=== PATIENT | male | born 1980 | race Caucasian/White ===

== ENCOUNTER 2022-09-14 15:30 | Emergency (ER) | payer MEDICAID, SELFPAY ==
[2022-09-14] VITALS (38 sets, daily range): BP systolic 207–235; BP diastolic 97–118; PULSE 80–92; RESP 20–24; TEMP 36.9; O2SAT 92–100; BMI 34.4
--- NOTE | 2022-09-14 16:17 | ED.GENADULT ---
HPI - General Adult General Chief complaint: Shortness of Breath/Dyspnea <Consuelo Yates MD - Last Filed: 09/17/22 01:19> Stated complaint: Cough, swelling in both legs <Consuelo Yates MD - Last Filed: 09/17/22 01:19> Time Seen by Provider: 09/14/22 16:01 <Consuelo Yates MD - Last Filed: 09/17/22 01:19> Source: patient and family <Consuelo Yates MD - Last Filed: 09/17/22 01:19> Mode of arrival: ambulatory <Consuelo Yates MD - Last Filed: 09/17/22 01:19> History of Present Illness HPI narrative: 41-year-old male with a notable history of diabetes, hypertension and chronic kidney disease presents to the emergency department with a 2 week history of cough, couple month history of leg swelling. Legs have become gradually more swollen since his medications were adjusted at [facility] a couple of months ago. He admits that he has not been taking his medications the last few days because he feels like it has a sensation of chest squeezing. He does not know it is medications are but family can take pictures of his bottles at home and will get back to me very soon with this. The cough is nonproductive. He has vomiting every morning but on specific questioning it sounds like this is nonbilious, stomach acid in mucus. He does not endorse a sensation of acid reflux. He still eating and drinking normally and is not losing weight. He does not endorse any abdominal pain. No fever. Cough is rather constant. It has not improved since he stopped taking his blood pressure medications. He does not endorse any history of heart failure but denies any prior history of stress tests. He had a chest x-ray performed per his report a couple of days ago in our system which was apparently normal. His [facility] provider referred him to the ED for further workup. No history of DVT or PE. No fevers. No falls, trauma or injury. Symptoms have been gradual onset. He has not been monitoring his blood sugars well recently and admits that he has had increased stress due to his sister being diagnosed with stage IV cancer. No coronary artery disease history but he does admit to some chest tightness when he takes his medications but it does not sound as though it is completely exertional. He has not tried any other measures to help with his symptoms. Past medical history notable for diabetes, hypertension. Denies any prior surgeries. He takes several prescription medications that are prescribed to him but has not been using these for at least the last 5 days and from what I can gather was rather sporadic when he was taking them. He has no allergies. He is a nonsmoker. ROS is notable for the respiratory, chest and extremity symptoms as described above, otherwise denies times 12 systems. <Consuelo Yates MD - Last Filed: 09/17/22 01:19> Related Data Home medications: Home Medications Medication Instructions Recorded Confirmed clonidine HCl 0.1 mg tablet 0.1 mg PO DAILY 09/14/22 09/14/22 diltiazem HCl 240 mg 240 mg PO DAILY 09/14/22 09/14/22 capsule,extended release 24 hr hydralazine 50 mg tablet 150 mg PO BID 09/14/22 09/14/22 losartan 100 mg tablet 100 mg PO DAILY 09/14/22 09/14/22 metformin 500 mg tablet,extended 500 mg PO BID 09/14/22 09/14/22 release 24 hr <Consuelo Yates MD - Last Filed: 09/17/22 01:19> Allergies/adverse reactions: Allergies Allergy/AdvReac Type Severity Reaction Status Date / Time Latex, Natural Rubber Allergy Verified 09/15/22 10:25 tramadol [From Ultram] Allergy Verified 09/15/22 10:25 <Consuelo Yates MD - Last Filed: 09/17/22 01:19> [facility] Medical History: Medical History (Updated 09/14/22 @ 17:37 by Consuelo Yates MD) Chronic kidney disease ?N18.9 - Chronic kidney disease, unspecified (ICD-10) Hypertension ?I10 - Essential (primary) hypertension (ICD-10) Type 2 diabetes mellitus ?E11.9 - Type 2 diabetes mellitus without complications (ICD-10) <Consuelo Yates MD - Last Filed: 09/17/22 01:19> Social History: Social History Smoking Status: Never smoker How often do you have a drink containing alcohol: never AUDIT-C Alcohol total score: 0 Non-prescribed substance use: denies use <Consuelo Yates MD - Last Filed: 09/17/22 01:19> Exam Const: Vital Signs, click to edit/add: Vital Signs - 24 hr 09/14/22 15:37 09/14/22 16:53 09/14/22 17:00 Temperature 98.4 F Pulse Rate 87 86 Pulse Rate [Pulse Oximeter] 92 Respiratory Rate 20 Blood Pressure Blood Pressure [Ri ght Upper Arm] 235/108 H Pulse Oximetry 98 95 97 09/14/22 17:03 09/14/22 17:04 09/14/22 17:15 Temperature Pulse Rate 84 85 83 Pulse Rate [Pulse Oximeter] Respiratory Rate Blood Pressure 221/117 H Blood Pressure [Ri ght Upper Arm] Pulse Oximetry 97 94 92 09/14/22 17:30 09/14/22 18:08 09/14/22 18:15 Temperature Pulse Rate 89 86 86 Pulse Rate [Pulse Oximeter] Respiratory Rate Blood Pressure Blood Pressure [Ri ght Upper Arm] Pulse Oximetry 94 94 95 09/14/22 18:30 09/14/22 18:45 09/14/22 18:48 Temperature Pulse Rate 85 85 86 Pulse Rate [Pulse Oximeter] Respiratory Rate Blood Pressure 210/103 H Blood Pressure [Ri ght Upper Arm] Pulse Oximetry 98 98 93 09/14/22 19:00 09/14/22 19:02 09/14/22 19:03 Temperature Pulse Rate 89 89 86 Pulse Rate [Pulse Oximeter] Respiratory Rate Blood Pressure 224/118 H Blood Pressure [Ri ght Upper Arm] Pulse Oximetry 96 97 97 09/14/22 19:15 09/14/22 19:30 09/14/22 19:45 Temperature Pulse Rate 87 83 87 Pulse Rate [Pulse Oximeter] Respiratory Rate Blood Pressure Blood Pressure [Ri ght Upper Arm] Pulse Oximetry 95 97 97 09/14/22 20:00 09/14/22 20:02 09/14/22 20:15 Temperature Pulse Rate 89 87 87 Pulse Rate [Pulse Oximeter] Respiratory Rate Blood Pressure 219/113 H Blood Pressure [Ri ght Upper Arm] Pulse Oximetry 96 96 94 09/14/22 20:30 09/14/22 21:04 09/14/22 21:10 Temperature Pulse Rate 89 85 83 Pulse Rate [Pulse Oximeter] Respiratory Rate Blood Pressure 221/101 H Blood Pressure [Ri ght Upper Arm] Pulse Oximetry 98 94 93 09/14/22 21:15 09/14/22 21:30 09/14/22 21:40 Temperature Pulse Rate 87 85 85 Pulse Rate [Pulse Oximeter] Respiratory Rate Blood Pressure 208/97 H Blood Pressure [Ri ght Upper Arm] Pulse Oximetry 95 100 97 09/14/22 21:42 09/14/22 21:45 09/14/22 21:45 Temperature Pulse Rate 90 86 Pulse Rate [Pulse Oximeter] Respiratory Rate 24 Blood Pressure Blood Pressure [Ri ght Upper Arm] Pulse Oximetry 97 96 09/14/22 22:00 09/14/22 22:12 09/14/22 22:15 Temperature Pulse Rate 86 90 88 Pulse Rate [Pulse Oximeter] Respiratory Rate Blood Pressure 209/105 H Blood Pressure [Ri ght Upper Arm] Pulse Oximetry 98 94 97 09/14/22 22:30 09/14/22 22:45 09/14/22 23:00 Temperature Pulse Rate 82 82 82 Pulse Rate [Pulse Oximeter] Respiratory Rate Blood Pressure Blood Pressure [Ri ght Upper Arm] Pulse Oximetry 95 92 94 09/14/22 23:02 09/14/22 23:03 09/14/22 23:15 Temperature Pulse Rate 82 82 80 Pulse Rate [Pulse Oximeter] Respiratory Rate Blood Pressure 207/105 H Blood Pressure [Ri ght Upper Arm] Pulse Oximetry 93 94 94 09/15/22 00:02 09/15/22 00:02 09/15/22 00:02 Temperature Pulse Rate 80 80 80 Pulse Rate [Pulse Oximeter] Respiratory Rate 18 Blood Pressure 179/98 H 179/98 H 179/98 H Blood Pressure [Ri ght Upper Arm] Pulse Oximetry 92 92 92 09/15/22 00:15 09/15/22 01:02 09/15/22 02:02 Temperature Pulse Rate 80 76 80 Pulse Rate [Pulse Oximeter] Respiratory Rate Blood Pressure 191/99 H 204/102 H Blood Pressure [Ri ght Upper Arm] Pulse Oximetry 97 94 94 09/15/22 03:02 09/15/22 04:02 09/15/22 05:02 Temperature Pulse Rate 77 78 76 Pulse Rate [Pulse Oximeter] Respiratory Rate 20 Blood Pressure 199/112 H 202/106 H 212/119 H Blood Pressure [Ri ght Upper Arm] Pulse Oximetry 96 99 98 09/15/22 05:19 09/15/22 06:02 09/15/22 06:03 Temperature 98.1 F Pulse Rate 84 77 Pulse Rate [Pulse Oximeter] Respiratory Rate 20 Blood Pressure 198/108 H Blood Pressure [Ri ght Upper Arm] Pulse Oximetry 99 99 09/15/22 06:30 09/15/22 07:00 09/15/22 07:02 Temperature Pulse Rate 78 79 76 Pulse Rate [Pulse Oximeter] Respiratory Rate Blood Pressure 215/111 H Blood Pressure [Ri ght Upper Arm] Pulse Oximetry 97 100 99 09/15/22 07:30 09/15/22 08:00 09/15/22 08:02 Temperature Pulse Rate 74 76 77 Pulse Rate [Pulse Oximeter] Respiratory Rate Blood Pressure 202/108 H Blood Pressure [Ri ght Upper Arm] Pulse Oximetry 97 98 99 09/15/22 08:30 09/15/22 09:00 09/15/22 09:02 Temperature Pulse Rate 80 86 84 Pulse Rate [Pulse Oximeter] Respiratory Rate Blood Pressure 204/99 H Blood Pressure [Ri ght Upper Arm] Pulse Oximetry 98 97 98 09/15/22 09:30 09/15/22 09:35 Temperature 98.1 F Pulse Rate 87 Pulse Rate [Pulse Oximeter] Respiratory Rate Blood Pressure Blood Pressure [Ri ght Upper Arm] Pulse Oximetry 97 <Consuelo Yates MD - Last Filed: 09/17/22 01:19> Vital Signs, click to edit/add: Vital Signs - 24 hr 09/14/22 15:37 09/14/22 16:53 09/14/22 17:00 Temperature 98.4 F Pulse Rate 87 86 Pulse Rate [Pulse Oximeter] 92 Respiratory Rate 20 Blood Pressure Blood Pressure [Ri ght Upper Arm] 235/108 H Pulse Oximetry 98 95 97 09/14/22 17:03 09/14/22 17:04 09/14/22 17:15 Temperature Pulse Rate 84 85 83 Pulse Rate [Pulse Oximeter] Respiratory Rate Blood Pressure 221/117 H Blood Pressure [Ri ght Upper Arm] Pulse Oximetry 97 94 92 09/14/22 17:30 09/14/22 18:08 09/14/22 18:15 Temperature Pulse Rate 89 86 86 Pulse Rate [Pulse Oximeter] Respiratory Rate Blood Pressure Blood Pressure [Ri ght Upper Arm] Pulse Oximetry 94 94 95 09/14/22 18:30 09/14/22 18:45 09/14/22 18:48 Temperature Pulse Rate 85 85 86 Pulse Rate [Pulse Oximeter] Respiratory Rate Blood Pressure 210/103 H Blood Pressure [Ri ght Upper Arm] Pulse Oximetry 98 98 93 09/14/22 19:00 09/14/22 19:02 09/14/22 19:03 Temperature Pulse Rate 89 89 86 Pulse Rate [Pulse Oximeter] Respiratory Rate Blood Pressure 224/118 H Blood Pressure [Ri ght Upper Arm] Pulse Oximetry 96 97 97 09/14/22 19:15 09/14/22 19:30 09/14/22 19:45 Temperature Pulse Rate 87 83 87 Pulse Rate [Pulse Oximeter] Respiratory Rate Blood Pressure Blood Pressure [Ri ght Upper Arm] Pulse Oximetry 95 97 97 09/14/22 20:00 09/14/22 20:02 09/14/22 20:15 Temperature Pulse Rate 89 87 87 Pulse Rate [Pulse Oximeter] Respiratory Rate Blood Pressure 219/113 H Blood Pressure [Ri ght Upper Arm] Pulse Oximetry 96 96 94 09/14/22 20:30 09/14/22 21:04 09/14/22 21:10 Temperature Pulse Rate 89 85 83 Pulse Rate [Pulse Oximeter] Respiratory Rate Blood Pressure 221/101 H Blood Pressure [Ri ght Upper Arm] Pulse Oximetry 98 94 93 09/14/22 21:15 09/14/22 21:30 09/14/22 21:40 Temperature Pulse Rate 87 85 85 Pulse Rate [Pulse Oximeter] Respiratory Rate Blood Pressure 208/97 H Blood Pressure [Ri ght Upper Arm] Pulse Oximetry 95 100 97 09/14/22 21:42 09/14/22 21:45 09/14/22 21:45 Temperature Pulse Rate 90 86 Pulse Rate [Pulse Oximeter] Respiratory Rate 24 Blood Pressure Blood Pressure [Ri ght Upper Arm] Pulse Oximetry 97 96 09/14/22 22:00 09/14/22 22:12 09/14/22 22:15 Temperature Pulse Rate 86 90 88 Pulse Rate [Pulse Oximeter] Respiratory Rate Blood Pressure 209/105 H Blood Pressure [Ri ght Upper Arm] Pulse Oximetry 98 94 97 09/14/22 22:30 09/14/22 22:45 09/14/22 23:00 Temperature Pulse Rate 82 82 82 Pulse Rate [Pulse Oximeter] Respiratory Rate Blood Pressure Blood Pressure [Ri ght Upper Arm] Pulse Oximetry 95 92 94 09/14/22 23:02 09/14/22 23:03 09/14/22 23:15 Temperature Pulse Rate 82 82 80 Pulse Rate [Pulse Oximeter] Respiratory Rate Blood Pressure 207/105 H Blood Pressure [Ri ght Upper Arm] Pulse Oximetry 93 94 94 09/15/22 00:02 09/15/22 00:02 09/15/22 00:02 Temperature Pulse Rate 80 80 80 Pulse Rate [Pulse Oximeter] Respiratory Rate 18 Blood Pressure 179/98 H 179/98 H 179/98 H Blood Pressure [Ri ght Upper Arm] Pulse Oximetry 92 92 92 09/15/22 00:15 09/15/22 01:02 09/15/22 02:02 Temperature Pulse Rate 80 76 80 Pulse Rate [Pulse Oximeter] Respiratory Rate Blood Pressure 191/99 H 204/102 H Blood Pressure [Ri ght Upper Arm] Pulse Oximetry 97 94 94 09/15/22 03:02 09/15/22 04:02 09/15/22 05:02 Temperature Pulse Rate 77 78 76 Pulse Rate [Pulse Oximeter] Respiratory Rate 20 Blood Pressure 199/112 H 202/106 H 212/119 H Blood Pressure [Ri ght Upper Arm] Pulse Oximetry 96 99 98 09/15/22 05:19 09/15/22 06:02 09/15/22 06:03 Temperature 98.1 F Pulse Rate 84 77 Pulse Rate [Pulse Oximeter] Respiratory Rate 20 Blood Pressure 198/108 H Blood Pressure [Ri ght Upper Arm] Pulse Oximetry 99 99 09/15/22 06:30 09/15/22 07:00 09/15/22 07:02 Temperature Pulse Rate 78 79 76 Pulse Rate [Pulse Oximeter] Respiratory Rate Blood Pressure 215/111 H Blood Pressure [Ri ght Upper Arm] Pulse Oximetry 97 100 99 09/15/22 07:30 09/15/22 08:00 09/15/22 08:02 Temperature Pulse Rate 74 76 77 Pulse Rate [Pulse Oximeter] Respiratory Rate Blood Pressure 202/108 H Blood Pressure [Ri ght Upper Arm] Pulse Oximetry 97 98 99 09/15/22 08:30 09/15/22 09:00 09/15/22 09:02 Temperature Pulse Rate 80 86 84 Pulse Rate [Pulse Oximeter] Respiratory Rate Blood Pressure 204/99 H Blood Pressure [Ri ght Upper Arm] Pulse Oximetry 98 97 98 09/15/22 09:30 09/15/22 09:35 Temperature 98.1 F Pulse Rate 87 Pulse Rate [Pulse Oximeter] Respiratory Rate Blood Pressure Blood Pressure [Ri ght Upper Arm] Pulse Oximetry 97 <John Cameron MD - Last Filed: 09/15/22 11:40> Documenting provider has reviewed patient's vital signs: yes <Consuelo Yates MD - Last Filed: 09/17/22 01:19> Common normals: no apparent distress <Consuelo Yates MD - Last Filed: 09/17/22 01:19> General appearance: cooperative, comfortable and well kempt <Consuelo Yates MD - Last Filed: 09/17/22 01:19> Other: Good historian. Friendly and cooperative. <Consuelo Yates MD - Last Filed: 09/17/22 01:19> HENMT: Common normals: normocephalic and head/scalp atraumatic <Consuelo Yates MD - Last Filed: 09/17/22 01:19> Head and scalp: normocephalic and atraumatic <Consuelo Yates MD - Last Filed: 09/17/22 01:19> Face and sinus: normal facial exam <Consuelo Yates MD - Last Filed: 09/17/22 01:19> Mouth: oral and palatal mucosa normal <Consuelo Yates MD - Last Filed: 09/17/22 01:19> Throat: posterior oropharynx normal <Consuelo Yates MD - Last Filed: 09/17/22 01:19> Eye: Common normals: conjunctivae normal <MD Beatriz Yee Last Filed: 09/17/22 01:19> General eye: normal appearance of both eyes <Consuelo Yates MD - Last Filed: 09/17/22 01:19> Conjunctiva: conjunctiva(e) normal <MD Beatriz Yee Last Filed: 09/17/22 01:19> Neck & C-Spine: Common normals: full ROM and no lymphadenopathy <MD Beatriz Yee Last Filed: 09/17/22 01:19> Chest: Common normals: inspection of chest normal <MD Beatriz Yee Last Filed: 09/17/22 01:19> Resp: Common normals: normal respiratory effort and no use of accessory muscles <MD Beatriz Yee Last Filed: 09/17/22 01:19> Effort & inspection: able to speak in complete sentences <MD Beatriz Yee Last Filed: 09/17/22 01:19> Other: Slight coarse bilateral crackles, left greater than right. Normal respiratory effort, good air entry throughout. No wheeze. <MD Beatriz Yee Last Filed: 09/17/22 01:19> Cardio: Common normals: regular rate, regular rhythm, S1 normal heart sound, S2 normal heart sound and no murmurs <MD Beatriz Yee Last Filed: 09/17/22 01:19> Rate: regular rate <MD Beatriz Yee Last Filed: 09/17/22 01:19> Rhythm: regular rhythm <MD Beatriz eYe Last Filed: 09/17/22 01:19> Heart sounds: S1 normal and S2 normal <MD Beatriz Yee Last Filed: 09/17/22 01:19> GI: Common normals: Normal to inspection, nondistended, normoactive bowel sounds present, soft to palpation, no hepatosplenomegaly and no masses <MD Beatriz Yee Last Filed: 09/17/22 01:19> Palpation: soft and no hepatosplenomegaly <MD Beatriz Yee Last Filed: 09/17/22 01:19> Other: Mild tenderness to right upper quadrant only. No rebound tenderness or guarding. <MD Beatriz Yee Last Filed: 09/17/22 01:19> Extremity: Other: 2+ edema to upper tibia. <Consuelo Yates MD - Last Filed: 09/17/22 01:19> Neuro: Speech: speech normal <Consuelo Yates MD - Last Filed: 09/17/22 01:19> Gait (neuro): normal gait <Consuelo Yates MD - Last Filed: 09/17/22 01:19> Motor exam: strength 5/5 throughout and no movement abnormalities noted <Consuelo Yates MD - Last Filed: 09/17/22 01:19> Psych: Appearance: well kempt <Consuelo Yates MD - Last Filed: 09/17/22 01:19> Attitude: engaged <Consuelo Yates MD - Last Filed: 09/17/22 01:19> Activity/motor behavior: appropriate eye contact <Consuelo Yates MD - Last Filed: 09/17/22 01:19> Mood and affect: euthymic mood <Consuelo Yates MD - Last Filed: 09/17/22 01:19> Skin: Common normals: no rashes or lesions noted <Consuelo Yates MD - Last Filed: 09/17/22 01:19> General skin exam: no rashes or lesions noted <Consuelo Yates MD - Last Filed: 09/17/22 01:19> Course Course Hospital Course: Prior x-ray reviewed. There is some bronchial thickening suspicious for bronchitis type infection. With his history of leg edema, markedly elevated blood pressure and cardiac history, I am concerned for potential for heart failure, coronary artery disease, DVT, fluid overload from chronic kidney disease, among other infectious and noninfectious etiologies. Recommended COVID swab, basic labs. EKG, cardiac workup. Will consider repeating chest x-ray if the cardiac workup is suspicious. I think that the vomiting is acid reflux. If I do not find any other discrepancies in his blood work, will recommend an acid antique furniture reproducer. He will need a new regimen for hypertension control that does not cause side effects as well. Based on his stress and anxiety, he would probably be a good candidate for a beta-sung. I am awaiting his medication list. I suspect that amlodipine in high doses may have been the tipping point for him today. <Consuelo Yates MD - Last Filed: 09/17/22 01:19> Reevaluation(s) Time of Reevaluation #1: 17:35 <Consuelo Yates MD - Last Filed: 09/17/22 01:19> Reevaluation #1: Medication list reviewed. He is also prescribed furosemide which he has not been taking either. Found to be in significant renal failure, thankfully potassium is okay. Reports that he has not had labs performed in several months. I do think that his hypertensive urgency, dyspnea, edema are all related to his kidney failure. I think he needs urgent nephrology evaluation. I have made a call to the [facility] system to see if he can be placed. Will obtain renal ultrasound and urinalysis in the interim. Will start with Lasix. <Consuelo Yates MD - Last Filed: 09/17/22 01:19> Time of Reevaluation #2: 19:38 <Consuelo Yates MD - Last Filed: 09/17/22 01:19> Reevaluation #2: I was able to speak with Dr. Gunderson from [facility]. He agrees that patient likely needs dialysis and transfer. We are about 18th on the wait list at this time. I have been declined bed from [facility], [facility], [facility], [facility], [facility], [facility], [facility] and [facility]. [facility] says we can try calling back after 8:00 p.m. to see if a bed has opened up. Patient updated. He really is not critical, it is okay to wait for a bed. Nephrology does not think us putting in a non tunneled temporary dialysis catheter will be helpful. If he declines rapidly, start requiring oxygen at Center we should call back. They have recommended since he did not have much response to the Lasix that we try 4 mg of IV Bumex and if that is not successful, consider 5 mg of metolazone. Patient will be allowed to eat and then be made NPO after midnight. <Consuelo Yates MD - Last Filed: 09/17/22 01:19> Vital Signs Vital signs: Initial Vital Signs Temperature 98.4 F 09/14/22 15:37 Temperature Source Temporal Artery Scan 09/14/22 15:37 Pulse Rate 92 09/14/22 15:37 Respiratory Rate 20 09/14/22 15:37 Blood Pressure 235/108 H 09/14/22 15:37 Blood Pressure Mean 150 H 09/14/22 15:37 Pulse Oximetry 98 09/14/22 15:37 Vital Signs Temperature 98.4 F 09/14/22 15:37 Pulse Rate 92 09/14/22 15:37 Respiratory Rate 20 09/14/22 15:37 Blood Pressure 235/108 H 09/14/22 15:37 Pulse Oximetry 98 09/14/22 15:37 Temperature 98.1 F 09/15/22 09:35 Pulse Rate 82 09/15/22 14:36 Respiratory Rate 20 09/15/22 06:02 Blood Pressure 188/97 H 09/15/22 14:36 Pulse Oximetry 98 09/15/22 14:36 Oxygen Delivery Method Room Air 09/15/22 13:03 <Consuelo Yates MD - Last Filed: 09/17/22 01:19> Initial Vital Signs Temperature 98.4 F 09/14/22 15:37 Temperature Source Temporal Artery Scan 09/14/22 15:37 Pulse Rate 92 09/14/22 15:37 Respiratory Rate 20 09/14/22 15:37 Blood Pressure 235/108 H 09/14/22 15:37 Blood Pressure Mean 150 H 09/14/22 15:37 Pulse Oximetry 98 09/14/22 15:37 Vital Signs Temperature 98.4 F 09/14/22 15:37 Pulse Rate 92 09/14/22 15:37 Respiratory Rate 20 09/14/22 15:37 Blood Pressure 235/108 H 09/14/22 15:37 Pulse Oximetry 98 09/14/22 15:37 Temperature 98.1 F 09/15/22 09:35 Pulse Rate 82 09/15/22 14:36 Respiratory Rate 20 09/15/22 06:02 Blood Pressure 188/97 H 09/15/22 14:36 Pulse Oximetry 98 09/15/22 14:36 Oxygen Delivery Method Room Air 09/15/22 13:03 <John Cameron MD - Last Filed: 09/15/22 11:40> Medical Decision Making MDM Narrative Medical decision making narrative: This patient has been awaiting transfer for over 20 hours and I inherited his care at the end of the overnight physicians shift. The patient has been kept NPO with anticipation that there would need to be a dialysis fistula placed. There continues to be delay for his transfer so he was allowed to take food. I did administer medications for his glucose and blood pressure. He received 10 units of regular insulin and oral doses of hydralazine 25 mg, losartan 100 mg, clonidine 0.1 mg, and diltiazem 120 mg. I spoke with a printed circuit boards router at [facility], Dr. Milton Jenkins, and with a hospitalist on-call, Dr. Hadley, who agree to his transfer there for further evaluation and treatment. The hospital is not able to take him yet for another 4-8 hours until bed availability is acquired. <John Cameron MD - Last Filed: 09/15/22 11:40> Lab Data Lab results reviewed: Yes I reviewed the patient's lab results <Consuelo Yates MD - Last Filed: 09/17/22 01:19> Lab results narrative: Lab dyscrasias all consistent with advanced chronic kidney disease. Thankfully potassium is okay. Anemia, marked elevation in creatinine, low calcium. Comparison is 3 months ago where his creatinine has now doubled, anemia has worsened, calcium is lower. No signs of COVID or infection today. Moving forward with renal ultrasound, nephrology consult, urinalysis. <Consuelo Yates MD - Last Filed: 09/17/22 01:19> Labs: Lab Results 09/14/22 09/14/22 09/15/22 Range/Units 16:30 17:55 08:54 WBC 5.94 (4.50-11.00) K/uL RBC 3.09 L (4.30-5.90) m/uL Hgb 8.8 L (13.5-17.5) gm/dL Hct 26.6 L (37.0-53.0) % MCV 86 (80-100) fL MCH 29 (26-34) pg MCHC 33 (32-36) gm/dL RDW Coeff of [place] 13.2 (11.5-15.5) % Plt Count 123 L (140-440) K/uL Neut % (Auto) 72.2 H (42.0-72.0) % Lymph % (Auto) 16.7 L (20-44) % [place] % (Auto) 8.2 (0.0-11.0) % Eos % (Auto) 2.4 (0.0-7.0) % Baso % (Auto) 0.3 (0.0-3.0) % Neut # (Auto) 4.30 (1.7-7.0) K/uL Lymph # (Auto) 1.00 (0.90-2.90) K/uL [place] # (Auto) 0.50 (0.00-0.90) K/UL Eos # (Auto) 0.14 (0.00-0.50) K/uL Baso # (Auto) 0.02 (0.00-0.30) K/uL Abs Immat Gran (auto) 0.01 (0.00-0.30) K/uL Imm/Tot Granulo (auto) 0.2 % D-Dimer Quant (PE/DVT) 1.98 H (0.00-0.50) ug/ml Sodium 137 136 (135-149) mmol/L Potassium 4.7 5.5 H (3.6-5.1) mmol/L Chloride 102 103 (96-114) mmol/L Carbon Dioxide 17 L 18 L (20-32) mmol/L BUN 97 H 101 H (5-24) mg/dL Creatinine 12.5 H 12.9 H (0.5-1.5) mg/dL Estimated Creat Clear 7.70 7.46 Estimated GFR 5 4 ml/min Glucose 331 H 306 H (60-115) mg/dL Calcium 5.4 L* 5.8 L* (8.4-10.6) mg/dL Total Bilirubin 0.6 (0.1-1.5) mg/dL AST 22 (12-35) U/L ALT 18 (4-50) U/L Alkaline Phosphatase 113 (40-150) U/L Troponin I 0.02 (0.01-0.04) ng/mL C-Reactive Protein 1.1 H (0.5-1.0) mg/dL NT-Pro-B Natriuret Pep 24094 pg/mL Total Protein 6.8 (6.0-8.3) g/dL Albumin 3.8 (3.3-5.0) g/dL Urine Color Yellow (Yellow) Urine Appearance Clear (Clear) Urine pH 7.0 (5.0-8.5) Ur Specific [place] 1.020 (1.000-1.030) Urine Protein 3+ A (Negative) Urine Glucose (UA) 2+ A (Negative) Urine Ketones Negative (Negative) Urine Blood 2+ A (Negative) Urine Nitrite Negative (Negative) Urine Bilirubin Negative (Negative) Urine Urobilinogen 0.2 (0.2-1.0) Ur Leukocyte Esterase Negative (Negative) Urine RBC 2-5 A (0-2) Urine WBC 0-2 (0-5) Ur Squamous Epith Cells None (None-Few) Urine Bacteria None (None) SARS-CoV-2 (PCR) Negative SARS-CoV-2 (Negative) POC Troponin I 0.02 (0.01-0.04) ng/ml <Consuelo Yates MD - Last Filed: 09/17/22 01:19> Lab Results 09/14/22 09/14/22 09/15/22 Range/Units 16:30 17:55 08:54 WBC 5.94 (4.50-11.00) K/uL RBC 3.09 L (4.30-5.90) m/uL Hgb 8.8 L (13.5-17.5) gm/dL Hct 26.6 L (37.0-53.0) % MCV 86 (80-100) fL MCH 29 (26-34) pg MCHC 33 (32-36) gm/dL RDW Coeff of Carol Ann 13.2 (11.5-15.5) % Plt Count 123 L (140-440) K/uL Neut % (Auto) 72.2 H (42.0-72.0) % Lymph % (Auto) 16.7 L (20-44) % [place] % (Auto) 8.2 (0.0-11.0) % Eos % (Auto) 2.4 (0.0-7.0) % Baso % (Auto) 0.3 (0.0-3.0) % Neut # (Auto) 4.30 (1.7-7.0) K/uL Lymph # (Auto) 1.00 (0.90-2.90) K/uL [place] # (Auto) 0.50 (0.00-0.90) K/UL Eos # (Auto) 0.14 (0.00-0.50) K/uL Baso # (Auto) 0.02 (0.00-0.30) K/uL Abs Immat Gran (auto) 0.01 (0.00-0.30) K/uL Imm/Tot Granulo (auto) 0.2 % D-Dimer Quant (PE/DVT) 1.98 H (0.00-0.50) ug/ml Sodium 137 136 (135-149) mmol/L Potassium 4.7 5.5 H (3.6-5.1) mmol/L Chloride 102 103 (96-114) mmol/L Carbon Dioxide 17 L 18 L (20-32) mmol/L BUN 97 H 101 H (5-24) mg/dL Creatinine 12.5 H 12.9 H (0.5-1.5) mg/dL Estimated Creat Clear 7.70 7.46 Estimated GFR 5 4 ml/min Glucose 331 H 306 H (60-115) mg/dL Calcium 5.4 L* 5.8 L* (8.4-10.6) mg/dL Total Bilirubin 0.6 (0.1-1.5) mg/dL AST 22 (12-35) U/L ALT 18 (4-50) U/L Alkaline Phosphatase 113 (40-150) U/L Troponin I 0.02 (0.01-0.04) ng/mL C-Reactive Protein 1.1 H (0.5-1.0) mg/dL NT-Pro-B Natriuret Pep 20401 pg/mL Total Protein 6.8 (6.0-8.3) g/dL Albumin 3.8 (3.3-5.0) g/dL Urine Color Yellow (Yellow) Urine Appearance Clear (Clear) Urine pH 7.0 (5.0-8.5) Ur Specific [place] 1.020 (1.000-1.030) Urine Protein 3+ A (Negative) Urine Glucose (UA) 2+ A (Negative) Urine Ketones Negative (Negative) Urine Blood 2+ A (Negative) Urine Nitrite Negative (Negative) Urine Bilirubin Negative (Negative) Urine Urobilinogen 0.2 (0.2-1.0) Ur Leukocyte Esterase Negative (Negative) Urine RBC 2-5 A (0-2) Urine WBC 0-2 (0-5) Ur Squamous Epith Cells None (None-Few) Urine Bacteria None (None) SARS-CoV-2 (PCR) Negative SARS-CoV-2 (Negative) POC Troponin I 0.02 (0.01-0.04) ng/ml <John Cameron MD - Last Filed: 09/15/22 11:40> Imaging Data Renal ultrasound: Attestation: I have reviewed the pertinent imaging results. <Consuelo Ytaes MD - Last Filed: 09/17/22 01:19> My impression: Normal kidneys <Consuelo Yates MD - Last Filed: 09/17/22 01:19> Radiologist's impression: IMPRESSION: Unremarkable renal ultrasound. No hydronephrosis. Dictated by Leandro Cormier MD @ 09/14/2022 6:19:13 PM <Consuelo Yates MD - Last Filed: 09/17/22 01:19> ECG Data Attestation: I personally reviewed and interpreted this ECG as follows: <Consuelo Yates MD - Last Filed: 09/17/22 01:19> Prior ECG tracings: not available for review <Consuelo Yates MD - Last Filed: 09/17/22 01:19> Interpretation: Normal sinus rhythm, rate of 90. Slightly leftward axis. Good R-wave progression though. No significant ST or T-wave abnormalities. No ischemia. <Consuelo Yates MD - Last Filed: 09/17/22 01:19> Discharge Plan Discharge Clinical Impression: Hypertensive urgency, End stage chronic kidney disease <Consuelo Yates MD - Last Filed: 09/17/22 01:19> Patient Disposition: morgan Segudno <Consuelo Yates MD - Last Filed: 09/17/22 01:19> Condition: Unchanged <Consuelo Yates MD - Last Filed: 09/17/22 01:19> Prescriptions: No Action clonidine HCl 0.1 mg tablet 0.1 mg PO DAILY diltiazem HCl 240 mg capsule,extended release 24hr 240 mg PO DAILY hydralazine 50 mg tablet 150 mg PO BID losartan 100 mg tablet 100 mg PO DAILY metformin 500 mg tablet extended release 24 hr 500 mg PO BID <Consuelo Yates MD - Last Filed: 09/17/22 01:19> Stand Alone Forms: MyHealth Info Instructions <Consuelo Yates MD - Last Filed: 09/17/22 01:19>
[2022-09-14 16:38] LABS: Basophils Absolute Auto 0.02 K/uL (0.00-0.30); Basophils Percent Auto 0.3 % (0.0-3.0); Eosinophils Absolute Auto 0.14 K/uL (0.00-0.50); Eosinophils Percent Auto 2.4 % (0.0-7.0); Hematocrit 26.6 % (37.0-53.0); Hemoglobin* 8.8 gm/dL (13.5-17.5); Immature Granulocytes Abs Auto 0.01 K/uL (0.00-0.30); Immature Granulocytes Pct Auto 0.2 %; Lymphocytes Percent Auto 16.7 % (20-44); Mean Corpuscular HGB Conc 33 gm/dL (32-36); Mean Corpuscular Hemoglobin 29 pg (26-34); Mean Corpuscular Volume 86 fL (80-100); Monocytes Percent Auto 8.2 % (0.0-11.0); Neutrophils Percent Auto 72.2 % (42.0-72.0); Platelet Count* 123 K/uL (140-440); RDW Coefficient of Variation % 13.2 % (11.5-15.5); Red Blood Count 3.09 m/uL (4.30-5.90); White Blood Count* 5.94 K/uL (4.50-11.00)
[2022-09-14 16:43] LABS: Slide Review Reflex No
[2022-09-14 16:54] LABS: Albumin* 3.8 g/dL (3.3-5.0); Chloride* 102 mmol/L (96-114)
[2022-09-14 16:55] LABS: Potassium* 4.7 mmol/L (3.6-5.1); Sodium* 137 mmol/L (135-149)
[2022-09-14 16:57] LABS: Bilirubin Total* 0.6 mg/dL (0.1-1.5); Creatinine* 12.5 mg/dL (0.5-1.5); Estimated Glomerular Filt Rate 5 ml/min
[2022-09-14 16:58] LABS: Alanine Aminotransferase* 18 U/L (4-50); Alkaline Phosphatase* 113 U/L (40-150); Aspartate Amino Transferase* 22 U/L (12-35); Blood Urea Nitrogen* 97 mg/dL (5-24); Carbon Dioxide* 17 mmol/L (20-32); Glucose* 331 mg/dL (60-115); Total Protein* 6.8 g/dL (6.0-8.3)
[2022-09-14 17:00] LABS: D Dimer Quantitative* 1.98 ug/ml (0.00-0.50)
[2022-09-14 17:01] LABS: C Reactive Protein* 1.1 mg/dL (0.5-1.0)
[2022-09-14 17:10] LABS: SARS PCR* Negative SARS-CoV-2 (Negative); Troponin I* 0.02 ng/mL (0.01-0.04)
[2022-09-14 17:12] LABS: NT Pro B Type NatriureticPept* 22000 pg/mL
[2022-09-14 17:13] LABS: Calcium* 5.4 mg/dL (8.4-10.6)
--- NOTE | 2022-09-14 17:31 | CRLHL7_ITS ---
For Patients: As a result of the Century Cures Act, medical imaging exams and procedure reports are released immediately into your electronic medical record. You may view this report before your referring provider. If you have questions, please contact your health care provider. INDICATION: . TECHNIQUE: Ultrasound renal and bladder complete. Liu-scale and color Doppler sonographic images were acquired of the kidneys and urinary bladder. COMPARISON: None. FINDINGS: Right kidney: 10.0 x 4.4 x 4.9 cm. Left kidney: 10.8 x 5.2 x 5.8 cm. Normal echotexture and cortex. No suspicious masses, stones, or hydronephrosis. 1.2 cm simple cyst within the right kidney. Bladder: Normal in caliber and appearance. Color Doppler images demonstrate bilateral ureteral jets. IMPRESSION: Unremarkable renal ultrasound. No hydronephrosis. Dictated by Leandro Cormier MD @ 09/14/2022 6:19:13 PM (Electronically Signed)
[2022-09-14 17:34] LABS: Troponin, Point-of-Care* 0.02 ng/ml (0.01-0.04)
--- NOTE | 2022-09-14 17:45 | ED.NURSE ---
US in with patient.
[2022-09-14] MEDS: FUROSEMIDE 10 MG/ML inj 40 MG IVP (18:06)
[2022-09-14 18:08] LABS: Appearance Urine Clear (Clear); Bilirubin Urine Negative (Negative); Blood Urine 2+ (Negative); Color Urine Yellow (Yellow); Glucose Urine 2+ (Negative); Ketones Urine Negative (Negative); Leukocyte Esterase Urine Negative (Negative); Nitrite Urine Negative (Negative); Protein Urine 3+ (Negative); Urobilinogen Urine 0.2 (0.2-1.0)
[2022-09-14 18:17] LABS: WBC Urine 0-2 (0-5)
[2022-09-14] MEDS: ACETAMINOPHEN 500 MG TABLET 1000 MG PO (20:00)
--- NOTE | 2022-09-14 20:22 | ED.NURSE ---
Call placed to [facility] for transfer. Need to call back in 10 minutes for answer.
--- NOTE | 2022-09-14 20:37 | ED.NURSE ---
Call back to [facility], no beds available, may call back in am.
[2022-09-15] VITALS (39 sets, daily range): BP systolic 175–215; BP diastolic 93–119; PULSE 74–87; RESP 18–20; TEMP 36.7; O2SAT 92–100
[2022-09-15] MEDS: LOSARTAN POTASSIUM 50 MG TABLET 100 MG PO (09:11)
[2022-09-15] MEDS: cloNIDine HCL 0.1 MG TABLET PO (09:11)
[2022-09-15] MEDS: dilTIAZem 120 MG CAP.ER.24H PO (09:12)
[2022-09-15] MEDS: HYDRALAZINE 25 MG TABLET PO (09:12)
[2022-09-15] MEDS: ONDANSETRON 2 MG/ML inj 4 MG IVP (09:15)
[2022-09-15 09:17] LABS: Chloride* 103 mmol/L (96-114); Potassium* 5.5 mmol/L (3.6-5.1); Sodium* 136 mmol/L (135-149)
[2022-09-15 09:20] LABS: Blood Urea Nitrogen* 101 mg/dL (5-24); Carbon Dioxide* 18 mmol/L (20-32); Creatinine* 12.9 mg/dL (0.5-1.5); Est. Creatinine Clearance* 7.46; Estimated Glomerular Filt Rate 4 ml/min
[2022-09-15 09:21] LABS: Glucose* 306 mg/dL (60-115)
[2022-09-15 09:23] LABS: Calcium* 5.8 mg/dL (8.4-10.6)
--- NOTE | 2022-09-15 14:06 | PC.NURSE ---
report given to Taniya at transfer center, pt to [id number]
[2022-10-04 12:58] LABS: Glucose, Point-of-Care* 252 mg/dl (60-115)
== END 2022-09-15 14:51 | disposition home or self-care (01) ==
PROVIDERS: Emergency Medicine Emergency Medical Services; Emergency Provider Family Medicine; PCP Internal Medicine
DX: I16.0 Hypertensive urgency (principal); N18.6 End stage renal disease
CPT/HCPCS: 36415; 76775; 80048; 80053; 81003; 81015; 82947; 82962; 83880; 84484; 85025; 85379; 86140; 87635; 93005; 96374; 96375; 99284; 99285; A9270; J1940; J2405; S0171

== ENCOUNTER 2022-09-15 14:46 | Outpatient (CLI) | payer OTHER, SELFPAY | END 2022-09-15 14:47 | disposition home or self-care (01) | LOC: AMB 09-25 18:18 | PROVIDERS: PCP Internal Medicine; Visit Provider Emergency Medicine Emergency Medical Services | DX: I16.0 Hypertensive urgency (principal); N18.6 End stage renal disease | CPT/HCPCS: A0425; A0426; A0428 ==

== ENCOUNTER 2022-12-08 19:28 | Emergency (ER) | payer MEDICAID, SELFPAY ==
[2022-12-08 19:38] VITALS: BP 140/77; PULSE 93; RESP 16; TEMP 36.4; O2SAT 99; BMI 28.1
--- NOTE | 2022-12-08 20:31 | ED.NURSE ---
Clean tegaderm placed over catheter site.
--- NOTE | 2022-12-08 20:32 | ED_ITS ---
HPI - General Adult General Chief complaint: Unspecified Complaint, Adult Stated complaint: Needs catheter stitch removed Time Seen by Provider: 12/08/22 19:29 History of Present Illness HPI narrative: Patient is a 39 year white male who from dialysis has had a subclavian catheter on the right placed a few months ago. He has been dialyzing next Sunday dialyzed today. He has noticed some sharp discomfort underneath the catheter suture. There has been no raw obvious warmth or drainage. He has had no fever. The catheter is working well. Related Data Home Medications Medication Instructions Recorded Confirmed clonidine HCl 0.1 mg tablet 0.1 mg PO DAILY 09/14/22 09/14/22 diltiazem HCl 240 mg 240 mg PO DAILY 09/14/22 09/14/22 capsule,extended release 24 hr hydralazine 50 mg tablet 150 mg PO BID 09/14/22 09/14/22 losartan 100 mg tablet 100 mg PO DAILY 09/14/22 09/14/22 metformin 500 mg tablet,extended 500 mg PO BID 09/14/22 09/14/22 release 24 hr Allergies Allergy/AdvReac Type Severity Reaction Status Date / Time Latex, Natural Rubber Allergy Verified 09/15/22 10:25 tramadol [From Ultram] Allergy Verified 09/15/22 10:25 Review of Systems Status of ROS: Reports: 6 or more systems reviewed and unremarkable except as noted in History and below [facility] Medical History Chronic kidney disease ?N18.9 - Chronic kidney disease, unspecified (ICD-10) Hypertension ?I10 - Essential (primary) hypertension (ICD-10) Type 2 diabetes mellitus ?E11.9 - Type 2 diabetes mellitus without complications (ICD-10) Social History Smoking Status: Never smoker How often do you have a drink containing alcohol: never AUDIT-C Alcohol total score: 0 Non-prescribed substance use: denies use Exam Narrative: Exam Narrative: Objective patient is afebrile There is a Tegaderm over his catheter and it is a wound tightly with suture. Was able to the scrape several crusty patches around the and under the catheter and put a small 2 x 2 padding underneath the catheter and the patient tolerated this well and he had no further pain or discomfort with palpation of the catheter against his chest. This will be covered with a Tegaderm, Betadine was used around the area of the sutures as well. Const: Vital Signs, click to edit/add: Vital Signs - 24 hr 12/08/22 19:38 Temperature 97.5 F L Pulse Rate [Right Pulse Oximeter] 93 Respiratory Rate 16 Blood Pressure [Ri ght Upper Arm] 140/77 H Pulse Oximetry 99 Oxygen Delivery Me thod Room Air Course Vital Signs Vital signs: Initial Vital Signs Temperature 97.5 F L 12/08/22 19:38 Temperature Source Temporal Artery Scan 12/08/22 19:38 Pulse Rate 93 12/08/22 19:38 Pulse Rhythm Regular 12/08/22 19:38 Respiratory Rate 16 12/08/22 19:38 Blood Pressure 140/77 H 12/08/22 19:38 Blood Pressure Mean 98 12/08/22 19:38 Blood Pressure Position Sitting 12/08/22 19:38 Pulse Oximetry 99 12/08/22 19:38 Oxygen Delivery Method Room Air 12/08/22 19:38 Vital Signs Temperature 97.5 F L 12/08/22 19:38 Pulse Rate 93 12/08/22 19:38 Respiratory Rate 16 12/08/22 19:38 Blood Pressure 140/77 H 12/08/22 19:38 Pulse Oximetry 99 12/08/22 19:38 Oxygen Delivery Method Room Air 12/08/22 19:38 Temperature 97.5 F L 12/08/22 19:38 Pulse Rate 93 12/08/22 19:38 Respiratory Rate 16 12/08/22 19:38 Blood Pressure 140/77 H 12/08/22 19:38 Pulse Oximetry 99 12/08/22 19:38 Oxygen Delivery Method Room Air 12/08/22 19:38 Discharge Plan Discharge Clinical Impression: Dialysis patient Patient Disposition: Home w/ Parent or Adult Condition: Improved Additional Instructions: Keep covered with a Tegaderm and gauze as you would typically do tell Sunday and have dialysis reassess the catheter. Return sooner as needed. Activity Level: Light activity Discharge Diet: Renal Prescriptions: No Action clonidine HCl 0.1 mg tablet 0.1 mg PO DAILY diltiazem HCl 240 mg capsule,extended release 24hr 240 mg PO DAILY hydralazine 50 mg tablet 150 mg PO BID losartan 100 mg tablet 100 mg PO DAILY metformin 500 mg tablet extended release 24 hr 500 mg PO BID Follow Up/Referrals: Hema Allred MD [Primary Care Provider] - Stand Alone Forms: makerSQR Info Instructions
== END 2022-12-08 20:57 | disposition home or self-care (01) ==
PROVIDERS: Emergency Provider Family Medicine; PCP Internal Medicine
DX: T83.091A Other mechanical complication of indwelling urethral catheter, initial encounter (principal); Z99.2 Dependence on renal dialysis
CPT/HCPCS: 51702; 99283

== ENCOUNTER 2023-10-19 12:38 | Emergency (ER) | payer MEDICAID, SELFPAY ==
[2023-10-19 13:32] VITALS: BP 211/93; PULSE 97; RESP 20; TEMP 37.4; O2SAT 99; BMI 31.0
--- NOTE | 2023-10-19 14:23 | CRLHL7_ITS ---
For Patients: As a result of the Cures Act, medical imaging exams and procedure reports are released immediately into your electronic medical record. You may view this report before your referring provider. If you have questions, please contact your health care provider. Indication: Cough Technique: PA and lateral views of the chest. Comparison: 09/13/2022 Findings: Low lung volumes. Normal cardiomediastinal silhouette. Moderate confluent patchy right greater than left basilar opacities. No pleural effusion or visualized pneumothorax. Impression: Moderate confluent patchy right greater than left basilar opacities are concerning for infection. Dictated by Gurdeep Pressley MD @ 10/19/2023 4:22:37 PM (Electronically Signed)
--- OUTSIDE RECORDS SUMMARY | 2023-10-19 14:47 | XMS_ITS | Encounter Summary ---
Author Organization [facility] [place] Address [address] [place] [address] Phone Care Team Providers Care Retail Loan Officer Name Role Phone Unavailable Primary Care Provider Unavailabl e Encounter Details Date Type Department Care Team (Late st Contact Info) Description 09/26/2023 Abstract Transplant Program [address] [place], [place] [address] Williams Lindquist, Transplant Sand Operator [address] [place], [place] [address] Social History Tobacco Use Types Packs/Day Years Used Date Smoking Tobacco: Never Assessed Sex and Gender Information Value Date Recorded Sex Assigned at Not on file Gender Identity Not on file Sexual Orientation Not on file documented as of this encounter Plan of Treatment Upcoming Encounters Date Type Department Care Team (Late st Contact Info) Description 11/20/2023 10:30 AM CDT Appointment [facility] [place] [facility] [address] [place], [place] [id number] Blayne Quiroz MD [address] [place], [place] [address] Scheduled Discharge Disposition: Discharged to home or self care 11/20/2023 12:00 PM CDT [facility] [address] [address] Scheduled Discharge Disposition: Discharged to home or self care 11/20/2023 12:30 PM CDT Appointment [facility] [place] [address] [place], [place] [address] Blayne Quiroz MD [address] [place] [address] Scheduled Discharge Disposition: Discharged to home or self care 11/20/2023 1:00 PM CDT [facility] [address] [place] [address] Blayne Quiroz MD [address] [facility] [address] [place], [place] [address] Scheduled Discharge Disposition: Discharged to home or self care 11/20/2023 1:30 PM CDT Office Visit Transplant Program [address] [place], [place] [address] Neva Carbajal MBBS [address] [facility] [address] [place], [place] [address] Jade Goode RD, LD [address] [place], [place] [address] Scheduled Discharge Disposition: Discharged to home or self care 11/20/2023 2:30 PM CDT Nurse Only Transplant Program [address] [place], [place] [address] Neva Carbajal MBBS [address] [place], [place] [address] Rn, Cali-Pre Recipient Scheduled Discharge Disposition: Discharged to home or self care documented as of this encounter Visit Diagnoses Not on filedocumented in this encounter
--- OUTSIDE RECORDS SUMMARY | 2023-10-19 14:47 | XMS_ITS | Encounter Summary ---
Author Organization [facility] Address [address] [place] [address] Phone Care Team Providers Care Rn Telephonic Name Role Phone Unavailable Primary Care Provider Unavailabl e Encounter Details Date Type Department Care Team (Late st Contact Info) Description 10/03/2023 Documentation Only Transplant Program [address] [place], [place] [phone] Williams Lindquist Transplant Media Marketing Specialist [address] [place], [place] [address] Social History Tobacco Use Types Packs/Day Years Used Date Smoking Tobacco: Never Assessed Sex and Gender Information Value Date Recorded Sex Assigned at Not on file Gender Identity Not on file Sexual Orientation Not on file documented as of this encounter Progress Notes * Williams Lindquist Transplant Media Marketing Specialist - 10/03/2023 9:12 AM CDT D/A: Received message from patient's daughter stating his Emergency Medical Assistance insurance isin place again. This was verified by [facility] website. Patient contacted and informed someone will becontacting him to reschedule the appointments that had to be canceled in August. Also talked with himabout applying for Uncompensated Care and patient requested an email be sent to him with the numberto call. Brenna Lindquist Transplant Media Marketing Specialist, Tuesday October 03, 2023 09:16 documented in this encounter Plan of Treatment Upcoming Encounters Date Type Department Care Team (Late st Contact Info) Description 11/20/2023 10:30 AM CDT Appointment [facility] [address] [place], [place] [address] Blayne Quiroz MD [address] [place], [place] [address] Scheduled Discharge Disposition: Discharged to home or self care 11/20/2023 12:00 PM CDT Appointment [facility] [address] [address] Scheduled Discharge Disposition: Discharged to home or self care 11/20/2023 12:30 PM CDT Appointment [facility] [place] [address] [place], [place] [phone] Blayne Quiroz MD [address] [place], [place] [address] Scheduled Discharge Disposition: Discharged to home or self care 11/20/2023 1:00 PM CDT Appointment [facility] [place] [address] [place], [place] [address] Blayne Quiroz MD [address] [place], [place] [address] Scheduled Discharge Disposition: Discharged to home or self care 11/20/2023 1:30 PM CDT Office Visit Transplant Program [address] [place], [place] [address] Neva Carbajal MBBS [address] [place], [place] [address] Jade Goode, RD, LD [address] [place], [place] [address] Scheduled Discharge Disposition: Discharged to home or self care 11/20/2023 2:30 PM CDT Nurse Only Transplant Program [address] [place], [place] [address] Neva Carbajal MBBS [address] [place] [address] RnCali-Pre Recipient Scheduled Discharge Disposition: Discharged to home or self care documented as of this encounter Visit Diagnoses Not on filedocumented in this encounter
--- OUTSIDE RECORDS SUMMARY | 2023-10-19 14:47 | XMS_ITS | Clinical Summary ---
Author Organization [employer] [facility] Address [place], [place] [address] Care Team Providers Care Picking Table Worker Name Role Phone Daysi Pires Primary Care Provider Allergies Active Allergy Reactions Criticality Noted Date Comments Latex *Unknown 09/15/2022 Tramadol *Unknown 09/15/2022 Medications Medication Sig Dispensed Refills Start Date End Date Status gabapentin (NEURONTIN) 300 mg capsule Take 300 mg by mouth once daily if needed. Active insulin NPH-regular (NovoLIN 70-30 FlexPen U-100) 100 unit/mL (70-30) pen Inject 25-33 units subcutaneous three times daily before meals. Active calcitrioL 0.5 mcg capsuleIndications:Secon naif hyperparathyroidism of renal origin (HC) Take one tablet by mouth on Mondays, Wednesdays, and Fridays. 30 Capsule 3 Active Calcium Acetate (PHOS-LO) 667 mg capsuleIndications:Secon naif hyperparathyroidism of renal origin (HC) Take 1 Capsule (667 mg) by mouth three times daily with meals. 90 Capsule 3 Active carvediloL (COREG) 6.25 mg tabletIndications:HTN (hypertension),End stage renal disease (HC) Take 1 Tablet (6.25 mg) by mouth two times daily with meals. 180 Tablet 3 3 Active losartan (COZAAR) 50 mg tabletIndications:HTN (hypertension) Take 100 mg by mouth once daily. 0 3 Active hydrOXYzine HCL (ATARAX) 25 mg tabletIndications:Anxiet y Take 0.5 Tablets (12.5 mg) by mouth every 6 hours if needed for Anxiety. 30 Tablet 1 3 Active sertraline (ZOLOFT) 50 mg tabletIndications:Anxiet y Take 1 Tablet (50 mg) by mouth every morning. Take with the 25 mg tab to total 75 mg daily 30 Tablet 1 3 Active sertraline (ZOLOFT) 25 mg tabletIndications:Anxiet y Take 1 Tablet (25 mg) by mouth every morning. Take with the 50 mg tab, for total daily dose of 75 mg. 30 Tablet 1 3 Active amLODIPine (NORVASC) 10 mg tablet Take 10 mg by mouth once daily. 4 Active RenaPlex-D 800 mcg-12.5 mg -2,000 unit tab Take 1 Tablet by mouth once daily. 4 Active sevelamer carbonate (RENVELA) 800 mg tab tablet TAKE 3 TABLETS BY MOUTH THREE TIMES DAILY WITH MEALS 4 Active Active Problems Problem Noted Date Diagnosed Date Type 2 diabetes mellitus wit h chronic kidney disease on chronic dialysis, with long-term current use of insulin 06/04/2023 Insulin dependent type 2 diabetes mellitus 10/13 Anemia due to chronic kidney disease, on chronic dialysis 10/13/2022 Anxiety 10/13/2022 Dialysis patient 10/13/2022 ESRD (end stage renal disease) 10/13/2022 Hyperkalemia 09/24/2022 Secondary hyperparathyroidism of renal origin End stage renal disease 09/24/2022 Overview: HD started at [facility] 09/16/22 HTN (hypertension) 09/15/2022 Acute on chronic kidney failure 09/15/2022 Hypertensive emergency 09/15/2022 DIABETES 01/27/2002 Encounters Date Type Department Care Team Description 10/19/2023 Nurse Triage [facility] [address] [place] [address] Daysi Pires PA Chest Pain from Last 3 Months Social History Tobacco Use Types Packs/Day Years Used Date Smoking Tobacco: Former Cigarettes 0.3 23 S tarted: 10/30/2000 Passive Smoke Exposure: Past Tobacco Cessation:Counseling Given: Not Answered Alcohol Use Standard Drinks/Week Comments Not Currently 0 (1 standard drink = 0.6 oz pur e alcohol) Social Connections Answer Date Recorded Frequency of Communication with Friends and Fami ly 4 06/04/2023 Financial Resource Strain Answer Date R ecorded Difficulty of Paying Living Expenses 1 06/04/2023 Difficulty of Paying Living Expenses 2 06/04/2023 Food Insecurity Answer Date Recorded Worried About Running Out of Food in the Last Ye ar 1 06/04/2023 Transportation Needs Answer Date Record ed Lack of Transportation (Medical) 1 06/04/2023 Housing Stability Answer Date Recorded Unable to Pay for Housing in the Last Year 1 06/04/2023 Sex and Gender Information Value Date Recorded Sex Assigned at Not on file Gender Identity Not on file Sexual Orientation Not on file Obstetrics History Last Filed Vital Signs Vital Sign Reading Time Taken Comments Blood Pressure 139/73 06/04/2023 10:41 AM CDT Pulse 88 06/04/2023 10:41 AM CDT Temperature 36.5 ??C (97.7 ??F) 09/27/2022 12:07 PM C DT Respiratory Rate 18 09/27/2022 8:25 AM CDT Oxygen Saturation 100% 11/14/2022 2:36 PM CDT Inhaled Oxygen Concentration - - Weight 100.7 kg (222 lb) 06/04/2023 10:41 AM CDT Height - - Body Mass Index - - Plan of Treatment Health Maintenance Due Date Last Done Comments Pneumococcal series for age 6-64 (1 of 2 - PCV) 10/14/1985 Tdap 10/14/1990 Depression screening for age 12+ 1991 HIV for age 15-65 10/14/1994 BMI (ht and wt on same day) for age 18+ 10/14/1997 Hepatitis C screening for age 18-79 10/14/1997 Hepatitis B series for Diabe isela (1 of 3 - Risk Dialysis 4-dose series) 1999 Tetanus booster 1999 COVID-19 vaccine series ( - season) 2022 Influenza for age 9-49 10/28/2023 Lipids for age 35-44 12/06/2026 12/06/2021, 07/06/2021, 04/07/2020 Procedures Procedure Name Priority Date/Time Associated Diagnosis Comments LIPID PANEL Routine 12/06/2021 3:00 PM CDT from Last 3 Months or Most Recently Relevant to Health Maintenance Results * (ABNORMAL) LIPID PANEL (12/06/2021 3:00 PM CDT) CHOLESTEROL,TOTAL 163 100 - 199 mg/dL 12/07/2021 3:15 PM CDT [facility] TRIGLYCERIDES 272(H) <150 mg/dL 12/07/2021 3:15 PM CDT [facility] HDL CHOLESTEROL 23(L) >40 mg/dL 3:15 PM CDT [facility] NON-HDL CHOLESTEROL 140 <145 mg/dl 12/07/2021 3:15 PM CDT [facility] CHOL/HDL RATIO 7.09(H) <4.50 12/07/2021 3:15 PM CDT [facility] LDL CHOLESTEROL 86 <=130 mg/dL 12/07/2021 3:15 PM CDT [facility] VLDL CHOLESTEROL 54(H) <=30 mg/dL 12/07/2021 3:15 PM CDT [facility] PROVIDER ORDERED STATUS RANDOM 12/07/2021 3:15 PM CDT [facility] Blood BLOOD SPECIMEN / Unknown 12/06/2021 3:00 PM CDT 12/07/2021 2:54 PM CDT Aidee Sher NP CHEMISTRY [facility] [address] [place] [address] from Last 3 Months or Most Recently Relevant to Health Maintenance Advance Directives Documents on File Type Date Recorded Patient Sleeping Room Cleaner Expl anation Healthcare Directive 09/26/2022 023 * Full Code (Latest Code Status on File) Date Activated Date Inactivated Comments 09/15/2022 5:47 PM 09/27/2022 6:10 PM Question Answer Comments Code Status Discussion: Reviewed Preferences Care Teams Picking Table Worker Relationship Specialty Start Date End Date Daysi Pires PA [address] [place] [address] PCP - General Physician Luster Repairer 06/04/23
--- OUTSIDE RECORDS SUMMARY | 2023-10-19 14:47 | XMS_ITS ---
Author Name Krystian, Clinic Address [address] [place] [address] Phone [phone] Organization [facility], NA DOCUMENT DISCLAIMER Multiple document versions may exist, please be sure you review the latest version. The information in the [facility] Continuity of Care Document represents a summary of certain health and medical information. It may not contain the complete medical history for the patient and should be independently verified. The represented time in the document is Eastern Time. PROBLEMS Problem Code Status Onset Date Fluid overload, unspecified E87.70 Active August 30, 2023 Anxiety disorder, unspecified F41.9 Active December 04, 2022 Other disorders of phosphorus metabolism E83.39 Active December 04, 2022 Renovascular hypertension I15.0 Active Oc tober 2022 Encounter for adjustment and management of vascular access device Z45.2 Active December 04, 2022 Secondary hyperparathyroidism of renal origin N25.81 Active December 04, 2022 Dependence on renal dialysis Z99.2 Active December 01, 2022 Hypertensive heart disease without heart failure I11.9 Active December 01, 2022 Hyperkalemia E87.5 Active December 01 3 Hypocalcemia E83.51 Active December 01 3 Type 1 diabetes mellitus wit h diabetic chronic kidney disease E10.22 Active December 01, 2022 Anemia in chronic kidney disease D63.1 Active October 11, 2022 End stage renal disease N18.6 Active 2022 ALLERGIES AND ADVERSE REACTIONS Substance Reaction Severity Status LATEX Unknown Active SOCIAL HISTORY Tobacco Use Status Tobacco Type Unknown if ever consumed tobacco - Caregiver Characteristics No Information Available Characteristics of Home environment No Information Available MEDICATIONS Prescribed Medications for Dialysis Treatments Medication Instructions Dosage Route Start Date End Date Status Heparin Pork 1,000 Units/mL Systemic Self Administer Home Bolus, Every Treatment 2000 units Intravenous - push October 12, 2023 October 10, 2024 Active Heparin Sodium (Porcine) 1,000 Units/mL Systemic Bolus, Every Treatment, Total treatment minutes 225 2000 units Intravenous - push August 30, 2023 August 28, 2024 Discontinued Iron Sucrose (Venofer) Once 100 mg Intravenous - push October 04, 2023 Discontinued Mircera Once 30 mcg Subcutaneous October 04, 2023 Discontinued Home Medications Medication Instructions Dosage Route Start Date End Date Stat us Coreg 12.5 mg Take by mouth twice a day 1 tablet ORAL July 13, 2023 Active gabapentin 300mg Unknown December 04, 2022 Active Lokelma 10 gram Take by mouth once a week as directed 1 packet ORAL June 06, 2023 Active losartan 100 mg ORAL June 06, 2023 Active nifedipine 30 mg Take by mouth twice a day 1 tablet ORAL July 13, 2023 Active RenaPlex-D 800 mcg-12.5 mg-2,000 unit Take by mouth every evening 1 tablet ORAL October 04, 2022 Active sertraline 75mg every evening Unknown August 262023 Active sevelamer carbonate 800 mg Take by mouth three times a day with meals 3 tablet ORAL March 27, 2023 Active amlodipine 10 mg Take by mouth every evening 1 tablet ORAL September 26, 2023 Discontinued VITAL SIGNS Post-Treatment Vital Signs Vital Sign Value Date / Time Blood Pressure-sitting 188/84 mmHg September 09:07 PM Blood Pressure-standing 184/57 mmHg September 272023 09:07 PM Heart Rate 87 beats per minute October 17 09:07 PM Temperature 98 deg. F October 18, 2023 09:07 PM Weight Vital Sign Value Date / Time Estimated Dry Weight 93.5 kg October 12, 2023 11:59 PM Pre-Dialysis 92.9 kg October 18, 2023 09:07 PM Post-Dialysis 94.3 kg October 18, 2023 09:07 PM Other Other Value Date / Time Height 175 cm August 27, 2023 12 :00 AM Body Mass Index 30.53 kg/m2 October 02, 2023 10:25 AM LAB RESULTS Hematology Result Type Result Value Relevant Referen ce Range Interpretation Date Folate, Serum 17.0 ng/mL No Reference Ran ge Provided - November 20, 2022 WBC (No Diff) 5.59 1000/mcL 4.80 - 10.80 1000/mcL - May 16, 2023 Neutrophils 51.3 % 40.0 - 75.0 % - May 16, 2023 TIBC 259 mcg/dL 185 - 515 mcg/dL - April Transferrin Sat. (Calc) 37 % 20 - 55 % - May 16, 2023 UIBC (Calc) 162 mcg/dL 155 - 355 mcg/dL - April 272023 Platelets 131 1000/mcL 130 - 400 1000/mcL - Liban h 2023 UIBC (Calc) 154 mcg/dL 155 - 355 mcg/dL Low May 272023 TIBC 241 mcg/dL 185 - 515 mcg/dL - May Transferrin Sat. (Calc) 36 % 20 - 55 % - June 13, 2023 WBC (No Diff) 5.55 1000/mcL 4.80 - 10.80 1000/mcL - June 13, 2023 Platelets 127 1000/mcL 130 - 400 1000/mcL Low Apri l 2023 UIBC (Calc) 160 mcg/dL 155 - 355 mcg/dL - July 11, 2023 Platelets 96 1000/mcL 130 - 400 1000/mcL Low June 262023 Transferrin Sat. (Calc) 31 % 20 - 55 % - July 11, 2023 TIBC 232 mcg/dL 185 - 515 mcg/dL - July 11, 2023 WBC (No Diff) 4.34 1000/mcL 4.80 - 10.80 1000/mcL Low July 11, 2023 Hemoglobin x 3 31.2 % 42.0 - 54.0 % Low July 25, 2023 Hemoglobin x 3 30.9 % 42.0 - 54.0 % Low July Hemoglobin x 3 30.6 % 42.0 - 54.0 % Low July MCH 34.6 pg 27.0 - 31.0 pg High August 14 RDW 15.6 % 11.5 - 14.5 % High August 14 24 MCHC 32.3 g/dL 30.0 - 36.0 g/dL - August 15, 2023 Hemoglobin x 3 31.8 % 42.0 - 54.0 % Low July Platelets 129 1000/mcL 130 - 400 1000/mcL Low August 15, 2023 WBC (No Diff) 6.06 1000/mcL 4.80 - 10.80 1000/mcL - August 15, 2023 Ferritin 750 ng/mL 22 - 322 ng/mL High August 14 024 TIBC 252 mcg/dL 185 - 515 mcg/dL - August 15, 2023 Transferrin Sat. (Calc) 29 % 20 - 55 % - August 15, 2023 UIBC (Calc) 179 mcg/dL 155 - 355 mcg/dL - July Iron 73 mcg/dL 45 - 160 mcg/dL - August 15, 2023 Hemoglobin x 3 30.3 % 42.0 - 54.0 % Low July Hemoglobin x 3 27.9 % 42.0 - 54.0 % Low August RDW 15.1 % 11.5 - 14.5 % High August 30 MCHC 35.1 g/dL 30.0 - 36.0 g/dL - August 31, 2023 Eosinophil 1.8 % 0.0 - 7.0 % - August 31, 2023 Monocytes 5.5 % 3.0 - 10.0 % - August 30 Lymphocytes 21.9 % 19.0 - 48.0 % - August 30, 024 Neutrophils 68.8 % 40.0 - 75.0 % - August 30, WBC (No Diff) 4.25 1000/mcL 4.80 - 10.80 1000/mcL Low August 31, 2023 [place] 1.4 % 0.0 - 4.0 % - August 31, 2023 Basophils 0.6 % 0.0 - 1.5 % - August 31, 2023 MCH 35.2 pg 27.0 - 31.0 pg High August 30, 024 Transferrin Sat. (Calc) 43 % 20 - 55 % - August 31, 2023 TIBC 247 mcg/dL 185 - 515 mcg/dL - August 31, 2023 UIBC (Calc) 142 mcg/dL 155 - 355 mcg/dL Low August Iron 105 mcg/dL 45 - 160 mcg/dL - August 31, 2023 Ferritin 984 ng/mL 22 - 322 ng/mL High August 30, 024 Hemoglobin x 3 33.6 % 42.0 - 54.0 % Low August Retic HGB (CHr) 35.3 pg 25.4 - 31.8 pg High August 31, 2023 [place] 3.2 % 0.0 - 4.0 % - September 26, Basophils 1.5 % 0.0 - 1.5 % - September 26 Eosinophil 6.8 % 0.0 - 7.0 % - September 26, 24 Monocytes 7.9 % 3.0 - 10.0 % - September 26, 2 024 Lymphocytes 39.4 % 19.0 - 48.0 % - September 27, 2023 Neutrophils 41.0 % 40.0 - 75.0 % - September 27, 2023 RDW 13.7 % 11.5 - 14.5 % - September 27, 2023 HGB 10.5 g/dL 14.0 - 18.0 g/dL Low September Hemoglobin x 3 31.5 % 42.0 - 54.0 % Low September 27, 2023 HCT 29.8 % 42.0 - 52.0 % Low September 27, 2023 Iron 77 mcg/dL 45 - 160 mcg/dL - September MCH 34.6 pg 27.0 - 31.0 pg High September 27, 2023 TIBC 228 mcg/dL 185 - 515 mcg/dL - September MCHC 35.3 g/dL 30.0 - 36.0 g/dL - September UIBC (Calc) 151 mcg/dL 155 - 355 mcg/dL Low September 27, 2023 Transferrin Sat. (Calc) 34 % 20 - 55 % - September 27, 2023 WBC (No Diff) 2.92 1000/mcL 4.80 - 10.80 1000/mcL Low September 27, 2023 RBC 3.04 mill/mcL 4.70 - 6.10 mill/mcL Low September 27, 2023 Metabolic/Renal Result Type Result Value Relevant Referen ce Range Interpretation Date BUN, Post 18 mg/dL 6 - 19 mg/dL - August 14 4 URR, Calc 73 % 65 - 80 % - August 15, 2023 Bicarbonate 23 mEq/L 20 - 31 mEq/L - August 14 BUN 67 mg/dL 6 - 19 mg/dL High August 14 Creatinine, Serum 10.39 mg/dL 0.60 - 1.30 mg/dL High August 15, 2023 Potassium 5.8 mEq/L 3.5 - 5.1 mEq/L High August 15, 2023 Chloride 103 mEq/L 96 - 108 mEq/L - August 14 BUN/Creat Ratio 6.4 10.0 - 20.0 Low August 15, 2023 Sodium 138 mEq/L 136 - 145 mEq/L - August 15, 2023 URR, Calc 53 % 65 - 80 % Low August 31, 2023 BUN, Post 20 mg/dL 6 - 19 mg/dL High August 30 BUN 43 mg/dL 6 - 19 mg/dL High August 30 Vitamin B12 3903 pg/mL 211 - 911 pg/mL High August 31, 2023 Bicarbonate 28 mEq/L 20 - 31 mEq/L - August 30, 2 024 Chloride 96 mEq/L 96 - 108 mEq/L - August 30, 2 024 Potassium 6.6 mEq/L 3.5 - 5.1 mEq/L High August 31, 2023 Sodium 131 mEq/L 136 - 145 mEq/L Low August 31, 2023 BUN/Creat Ratio 6.3 10.0 - 20.0 Low August 31, 2023 Creatinine, Serum 6.80 mg/dL 0.60 - 1.30 mg/dL High August 31, 2023 Potassium 6.0 mEq/L 3.5 - 5.1 mEq/L High September 10, 2023 Chloride 101 mEq/L 96 - 108 mEq/L - September 27, 2023 Potassium 4.8 mEq/L 3.5 - 5.1 mEq/L - September Bicarbonate 29 mEq/L 20 - 31 mEq/L - September 27, 2023 Sodium 136 mEq/L 136 - 145 mEq/L - September BUN/Creat Ratio 6.4 10.0 - 20.0 Low September Creatinine, Serum 8.33 mg/dL 0.60 - 1.30 mg/dL High September 27, 2023 BUN 53 mg/dL 6 - 19 mg/dL High September 26, 2 024 BUN, Post 23 mg/dL 6 - 19 mg/dL High September 26, 2 024 URR, Calc 57 % 65 - 80 % Low September 26 HD Adequacy Result Type Result Value Relevant Referen ce Range Interpretation Date Krt/V 0.00 No Reference Ran ge Provided - May 16, 2023 Krt/V 0.00 No Reference Ran ge Provided - June 13, 2023 Krt/V 0.00 No Reference Ran ge Provided - July 11, 2023 spKt/V Gotch 1.63 No Reference Ran ge Provided - August 15, 2023 Krt/V 0.00 No Reference Ran ge Provided - August 15, 2023 wstdKt/V, residual 0.0 No Reference Range Provided - August 15, 2023 spKt/V (Daugirdas II) 1.57 No Referen ce Range Provided - August 15, 2023 wstdKt/V without residual 2.5 No Reference Range Provided - August 15, 2023 eKt/V ([place]) 1.36 No Reference Range Provided - August 15, 2023 wstdKt/V 2.5 No Reference Ran ge Provided - August 15, 2023 wstdKt/V 2.0 No Reference Ran ge Provided - August 31, 2023 spKt/V Daugirdas II (HHD) 0.81 No Reference Range Provided Normal August 31, 2023 Simple Kt/V (Home HD Only) 0.76 No Reference Range Provided Normal August 31, 2023 wstdKt/V, residual 0.0 No Reference Range Provided - August 31, 2023 wstdKt/V without residual 2.0 No Reference Range Provided - August 31, 2023 wstdKt/V, residual 0.0 No Reference Range Provided - September 27, 2023 wstdKt/V 2.5 No Reference Ran ge Provided - September 27, 2023 spKt/V Daugirdas II (HHD) 0.93 No Reference Range Provided Normal September 27, 2023 Simple Kt/V (Home HD Only) 0.84 No Reference Range Provided Normal September 27, 2023 wstdKt/V without residual 2.5 No Reference Range Provided - September 27, 2023 Bone/Mineral Result Type Result Value Relevant Referen ce Range Interpretation Date Vitamin D 25 Hydroxy 26.2 ng/mL 30.0 - 100.0 ng/mL Low November 20, 2022 Magnesium 2.1 mg/dL 1.6 - 2.6 mg/dL - November 20, 2022 Vitamin D 25 Hydroxy 28.6 ng/mL 30.0 - 100.0 ng/mL Low January 15, 2023 Magnesium 2.5 mg/dL 1.6 - 2.6 mg/dL - January 15, 2023 Magnesium 2.5 mg/dL 1.6 - 2.6 mg/dL - May 16, 2023 PTH-Intact, Plasma 189 pg/mL 16 - 80 pg/mL High [facility] 2023 Calcium, Total 9.1 mg/dL 8.7 - 10.4 mg/dL - July 25, 2023 PTH-Intact, Plasma 229 pg/mL 16 - 80 pg/mL High Ruddy 2023 Magnesium 2.7 mg/dL 1.6 - 2.6 mg/dL High August 15, 2023 Ca x P Product 77 0 - 54 High August 14, 024 Alkaline Phosphatase 99 U/L 40 - 129 U/L - 2023 Corrected Ca x P Product 75 0 - 54 High August 15, 2023 Phosphorus 8.7 mg/dL 2.6 - 4.5 mg/dL High August 15, 2023 Calcium, Total 8.8 mg/dL 8.7 - 10.4 mg/dL - August 15, 2023 Vitamin D 25 Hydroxy 35.2 ng/mL 30.0 - 100.0 ng/mL - August 31, 2023 PTH-Intact, Plasma 102 pg/mL 16 - 80 pg/mL High Aug Magnesium 2.4 mg/dL 1.6 - 2.6 mg/dL - August 31, 2023 Corrected Ca x P Product 40 0 - 54 - August 31, 2023 Calcium, Total 9.8 mg/dL 8.7 - 10.4 mg/dL - August 31, 2023 Alkaline Phosphatase 92 U/L 40 - 129 U/L - 2023 Ca x P Product 41 0 - 54 - August 30, 2 024 Phosphorus 4.2 mg/dL 2.6 - 4.5 mg/dL - August 31, 2023 Calcium, Total 8.5 mg/dL 8.7 - 10.4 mg/dL Low 2023 Ca x P Product 37 0 - 54 - September 27, 2023 Phosphorus 4.4 mg/dL 2.6 - 4.5 mg/dL - September Corrected Ca x P Product 38 0 - 54 - September 27, 2023 PTH-Intact, Plasma 291 pg/mL 16 - 80 pg/mL High Sep Liver/Nutrition Result Type Result Value Relevant Reference Range Interpre tation Date Total Protein 7.2 g/dL 6.0 - 8.5 g/dL - July Albumin (BCG) 4.2 g/dL 3.5 - 5.2 g/dL - July Globulin (Calc) 3.0 g/dL 2.0 - 4.0 g/dL - August 15, 2023 A/G Ratio 1.4 1.0 - 2.0 - August 15, 2023 eNPCR 1.12 No Reference Ran ge Provided - August 15, 2023 Albumin (BCG) 4.3 g/dL 3.5 - 5.2 g/dL - August Albumin (BCG) 3.7 g/dL 3.5 - 5.2 g/dL - September 27, 2023 Immunochemistry Result Type Result Value Relevant Referen ce Range Interpretation Date HCV s/co ratio < 0.02 0.00 - 0.79 - November 20, 2022 Trace Elements Result Type Result Value Relevant Reference Range Interpre tation Date Aluminum < 5 mcg/L 0 - 10 mcg/L - October Aluminum 5 mcg/L 0 - 10 mcg/L - August 30 Infectious Diseases Result Type Result Value Relevant Referen ce Range Interpretation Date HCV Ab (anti-HCV) Nonreactive No Reference R aurelio Provided - November 20, 2022 Hep B core Ab Total (anti-HBc) Negative No Reference Range Provided - January 15, 2023 Hep B Surface Ag (HBsAg) Negative No Reference Range Provided - June 13, 2023 Hep B Surface Ab (anti-HBs) 317 mIU/mL No Reference Range Provided - June 13, 2023 DIALYSIS PRESCRIPTION NxStage Hemodialysis Data Element Value Order Date/Time October 12, 2023 Frequency 4X Week [facility]Cart[facility] CAR 172 Therapy Fluid (dialysate) 2.0 K 45 Lacta te Estimated Treatment Time 180 min Volume per Treatment (Liters) 50 L Dialysate Flow Rate 16.7 L/hr Maximum Flow Fraction (%) 74% Maximum Ultrafiltration Rate 0.96 ml/Kg/ hr Blood Flow Rate (mL/min) 400 mL/min Estimated Dry Weight 93.5 kg Dialysis Access Hemodialysis-AV Fist amari-Standard, Left Upper Arm, Brachial Artery to Cephalic Vein Access Placed on January 23, 2023 Arterial Needle Size Buttonhole 15g Venous Needle Size Buttonhole 15g IMMUNIZATIONS Vaccine Date Dose Route Status HEPLISAV-B, Series 1 of 4 November 15, 2022 20.0 mcg In tramuscular Completed TRANSPLANT WAITLIST STATUS No Information on Transplant Waitlist Status ADVANCE DIRECTIVES Directive Description Ordered By Effective Date Resuscitation status Full Code Julito Daily 2023 DIALYSIS TREATMENTS NxStage-HHD Date Pre-Treatment Vitals Post-Treatment Vitals Durat ion(hr) Exchanges BFR(mL/min) Cartridge Type Dialysate Dialysis Access Meds-entered by patient Mikhail t 2023 Weight 94.3 kg Weight 94 kg 3:0 1 of 9 200 CAR-172-C 2K 45 Lactate Blood Pressure-sitting 159/74 mmHg Blood Pressure-sitting 18 0/84 mmHg 2 of 9 400 Blood Pressure-standing 159/76 mmHg Blood Pressure-standing 172/59 mmHg 3 of 9 400 Heart Rate 79 beats per minute Heart Rate 81 beats per minute 4 of 9 400 Temperature 97.9 deg. F Temperature 97.5 deg. F 5 of 9 40 0 - - - - 6 of 9 400 - - - - 7 of 9 400 - - - - 8 of 9 400 - - - - 9 of 9 400 2023 Weight 95.1 kg Weight 93.5 kg 3:0 1 of 9 220 CAR-172-C 2K 45 Lactate Not available Heparin 2000 Access Heparin 2000 Via Access Blood Pressure-sitting 128/68 mmHg Blood Pressure-sitting 15 0/72 mmHg 2 of 9 400 Blood Pressure-standing 122/63 mmHg Blood Pressure-standing 128/55 mmHg 3 of 9 400 Heart Rate 80 beats per minute Heart Rate 73 beats per minute 4 of 9 400 Temperature 97.7 deg. F Temperature 97.5 deg. F 5 of 9 40 0 - - - - 6 of 9 400 - - - - 7 of 9 400 - - - - 8 of 9 400 - - - - 9 of 9 400 October 18, 2023 Weight 92.9 kg Weight 94.3 kg 3:0 1 of 9 250 CAR-172-C 2K 45 Lactate Not available Heparin 2000 Via Access Heparin 2000 Access Blood Pressure-sitting 172/80 mmHg Blood Pressure-sitting 18 8/84 mmHg 2 of 9 - Blood Pressure-standing 165/74 mmHg Blood Pressure-standing 184/57 mmHg 3 of 9 400 Heart Rate 86 beats per minute Heart Rate 87 beats per minute 4 of 9 400 Temperature 98 deg. F Temperature 98 deg. F 5 of 9 400 - - - - 6 of 9 400 - - - - 7 of 9 400 - - - - 8 of 9 400 - - - - 9 of 9 -
--- OUTSIDE RECORDS SUMMARY | 2023-10-19 14:47 | XMS_ITS | Encounter Summary ---
Author Organization [facility] Address [address] [place] [address] Phone Care Team Providers Care Arabic Linguist Name Role Phone Unavailable Primary Care Provider Unavailabl e Reason for Referral * Consult/Test/Treat (Routine) - New Request Specialty Diagnoses / Procedures Referred By Amanda t Referred To Contact Cardiology / CARDIOLOGY Diagnoses Pre-transplant evaluation for ESRD (end stage renal disease) Blayne Quiroz MD [address] [place] [address] Referral ID Status Reason Start Date Expiration Date V isits Requested Visits Authorized [id number] New Request 07/20/2023 07/20/2024 1 1 Encounter Details Date Type Department Care Team (Late st Contact Info) Description 07/20/2023 Orders Only Transplant Program [address] [place], [place] [address] Chinyere Valencia, OLGA LID[facility] [address] [place] [address] Pre-transplant evaluation for ESRD (end stage renal disease) (Primary Dx) Social History Tobacco Use Types Packs/Day Years Used Date Smoking Tobacco: Never Assessed Sex and Gender Information Value Date Recorded Sex Assigned at Not on file Gender Identity Not on file Sexual Orientation Not on file documented as of this encounter Plan of Treatment Upcoming Encounters Date Type Department Care Team (Late st Contact Info) Description 11/20/2023 10:30 AM CDT Appointment [facility] [place] [facility] [address] [place], [place] [address] Blayne Quiroz MD [address] [place] [address] Scheduled Discharge Disposition: Discharged to home or self care 11/20/2023 12:00 PM CDT [facility]ointment [facility] [address] [address] Scheduled Discharge Disposition: Discharged to home or self care 11/20/2023 12:30 PM CDT Appointment [facility] [place] [address] [place], [place] [address] Blayne Quiroz MD [address] [place], [place] [id number] Scheduled Discharge Disposition: Discharged to home or self care 11/20/2023 1:00 PM CDT Appointment [facility] [place] [address] [place], [place] [id number] Blayne Quiroz MD [address] [place], [place] [address] Scheduled Discharge Disposition: Discharged to home or self care 11/20/2023 1:30 PM CDT Office Visit Transplant Program [address] [place], [place] [address] Neva Carbajal MBBS [address] [place], [place] [address] Jade Godoe RD, LD [address] [place], [place] [address] Scheduled Discharge Disposition: Discharged to home or self care 11/20/2023 2:30 PM CDT Nurse Only Transplant Program [address] [place], [place] [address] Neva Carbajal MBBS [address] [place], [place] [address] Rn, Kac-Pre Recipient Scheduled Discharge Disposition: Discharged to home or self care Scheduled Orders Name Type Priority Associated Diagnoses Orde r Schedule ECH EXERCISE STRESS ECHO Echo Routine Pre-transplant evaluation for ESRD (end stage renal disease) Expected: 07/20/2023, Expires: 09/18/2024 EKG ADULT (12-LEAD) EKG Routine Pre-transplant evaluation for ESRD (end stage renal disease) Expected: 07/20/2023, Expires: 07/19/2024 XR CHEST 2 VIEWS PA + LAT* Imaging Routine Pre-transplant evaluation for ESRD (end stage renal disease) Expected: 07/20/2023, Expires: 09/18/2024 CT ABDOMEN/PELVIS NO IV CON Imaging Routine Pre-transplant evaluation for ESRD (end stage renal disease) Expected: 07/20/2023, Expires: 09/18/2024 Scheduled Referrals Name Type Priority Associated Diagnoses Orde r Schedule REFERRAL TO CARDIOLOGY Referral Routine Pre-transplant evaluation for ESRD (end stage renal disease) Ordered: 07/20/2023 documented as of this encounter Visit Diagnoses Diagnosis Pre-transplant evaluation for ESRD (end stage renal disease)- Primary Other specified pre-operative examination documented in this encounter
--- OUTSIDE RECORDS SUMMARY | 2023-10-19 14:47 | XMS_ITS ---
Author Organization [facility] Address [address] [place] [phone] Phone Care Team Providers Care Belly Dump Driver Name Role Phone Unavailable Primary Care Provider Unavailabl e Transplant Episode Kidney Candidate [facility] ([place], [place]) - [facility] Referred on 05/11/2023 Marked as Approved on 05/11/2023 Kidney CoordinatorChinyere Valencia RN Phone: N/A Fax: N/A Email: N/A Care Team Name Role Phone Fax Email Chinyere Valencia RN Kidney Coordinator N/A N/A N/A Julito Cortez MD Subject Scientific Research Referring Subject Scientific Research Referring Provider [phone] N/A Kidney Spec Neph[facility]-[place] Referring Nephrology Group [facility] Nephrology Group N/A N/A N/A Chinyere Valencia RN TXP Pre Coordinator N/A N/A N/A Events Pre-Transplant Referred: 05/11/2023 Committee: 07/20/2023 Dialysis History Dialysis History Start End Type Comments Center Home Hemodialysis [facility] Information Center Phone Fax Address [facility] [phone] [address] [facility] [address]
--- OUTSIDE RECORDS SUMMARY | 2023-10-19 14:47 | XMS_ITS | Encounter Summary ---
Author Organization [facility] Address [address] [facility] [place] [address] Phone Care Team Providers Care Baker Test Name Role Phone Unavailable Primary Care Provider Unavailabl e Encounter Details Date Type Department Care Team (Late st Contact Info) Description 07/03/2023 2:00 PM CDT Office Visit Transplant Program [address] [facility] [address] [place], [place] [id number] Blayne Quiroz MD [address] [facility] [address] [place] [address] Henok Kaur MD [address] [place] [address] Encounter for pre-transplant evaluation for kidney transplant (Primary Dx) Discharge Disposition: Discharged to home or self care Social History Tobacco Use Types Packs/Day Years Used Date Smoking Tobacco: Never Assessed Sex and Gender Information Value Date Recorded Sex Assigned at Not on file Gender Identity Not on file Sexual Orientation Not on file documented as of this encounter Last Filed Vital Signs Vital Sign Reading Time Taken Comments Blood Pressure 192/91 07/03/2023 10:02 AM CDT Pulse 82 07/03/2023 10:02 AM CDT Temperature - - Respiratory Rate - - Oxygen Saturation - - Inhaled Oxygen Concentration - - Weight 93 kg (205 lb) 07/03/2023 10:02 AM CDT Height 170.2 cm (5' 7) 07/03/2023 10:02 AM CDT Body Mass Index 32.11 07/03/2023 10:02 AM CDT documented in this encounter Progress Notes * Blayne Quiroz MD - 07/03/2023 2:00 PM CDT RENAL MEDICINE ATTENDING TRANSPLANT EVALUATION NOTE Maco Stein : 1980 Sex: male CHIEF COMPLAINT: Evaluation for kidney transplant HISTORY OF PRESENT ILLNESS: Maco Stein is a 42 y.o. male with ESRD secondary to Diabetes Mellitus who dialyzes Q M, W, F via a LUE Fistula at [facility] dialysis Unit. Primary membership manager is Dr. Julito Cortez . Estimated dry weight is 92kg. Pt started dialysis on September 27, 2022 Patient has history of insulin requiring diabetes for 20 years. Patient has significant diabetic neuropathy in his legs. Patient has history of ulcers on his feet. Last hemoglobin A1c was 7.2 on 06/04/23. Patient use to use his gale device for monitoring but stopped it since it was getting too expensive (approx $160/month). Patient has history of headaches caused by hydralazine. Patient does well on losartan. Patient is a single dad taking care of 3 children age 23 and 18 and 12. Patient attends counseling sessions every other week to help with his mental health as per PMD notes. Patient is on sertraline for anxiety. History of Present Illness The patient presents for evaluation of a kidney transplant. He is accompanied by an adult female. The patient has been undergoing dialysis at [facility] since 09/27/2022 due to hypertension and diabetes, which have been a contributing factor to his renal failure. He undergoes dialysis on Mondays, Wednesdays, and Fridays, with dialysis access on his left arm. He reports nocturnal sweating for thepast 6 months, but denies any fevers during dialysis or home dialysis checks. He has informed his primary membership manager and other providers of these night sweets. He denies experiencing chest pain, shortness of breath, cough, rhinorrhea, or pain in his extremities. He does, however, report neuropathy in his legs, for which he is on gabapentin. He denies any skin rashes and his mood remains stable.He denies dysuria, hematuria, or hematochezia. His urine output varies, sometimes more than a cup per day. He denies experiencing lightheadedness or dizziness, except when his blood pressure is low. He denies any other medical issues apart from diabetes. He maintains an active lifestyle within his home, including carrying a bag of laundry and climbing 1 flight of stairs. He is not currently working and manages to walk on flat surfaces without interruptions. The accompanying adult female reportsthat the patient engages in extensive yard work, including mowing the lawn and working on their fence. He denies any history of cerebrovascular accidents or myocardial infarctions. He denies any current infections and denies any history of urinary frequency, bladder emptying, excessive bleeding, orclotting. He has not required blood transfusions. He is unaware of his blood type. The patient has been on insulin for approximately 20 years. His last recorded A1c was 7.1 approximately 3 weeks ago. He discontinued the use of Gale due to financial constraints. Supplemental Information He has had 3 amputations on his toes because they get infected. He had back surgery about 12 years ago for bacterial infection. He had bilateral retinal detachment surgery. His back problem is well controlled. Travel abroad: Born in [place] and came here at age 15. I have reviewed the following: Medical History MEDICATIONS: (Not in a hospital admission) Current Outpatient Medications Medication Sig Dispense Refill amLODIPine (NORVASC) 10 mg oral tablet Take 1 tablet (10 mg) by mouth daily. No current facility-administered medications for this visit. ALLERGIES/DRUG REACTIONS: Allergies Allergen Reactions Latex Rash Tramadol Other (see comments) SOCIAL HISTORY: Occupational History Not on file Tobacco Use Smoking status: Not on file Smokeless tobacco: Not on file Substance and Sexual Activity Alcohol use: Not on file Drug use: Not on file Sexual activity: Not on file Social History Narrative Not on file Smoking history: Smoked in the past for 22 years and quit 20 years ago. FAMILY HISTORY: No family history on file. Family history of cancer: Father had prostate cancer. Sister age 53 was diagnosed with cervical cancer. REVIEW OF SYSTEMS: As above, the remaining 10-point Review of Systems is negative. PHYSICAL EXAMINATIONS: Vital Signs: Patient Vitals for the past 24 hrs: BP Pulse Height Weight 07/03/23 1002 (!) 192/91 82 1.702 m (5' 7) 93 kg (205 lb) Body mass index is 32.11 kg/m??. Weight: 93 kg (205 lb) (07/03/23 1002) Physical Exam Pt is awake, alert and NAD HEENT: EOMI, NCAT Skin: no lesions Neck: Supple, FROM, no LAD, no bruits Lungs: CTA b/l, no wheezing, no rales CV: S1s2nl, no m/r/g Abd: soft, no HSM, non-tender, no bruits, no tenderness over wiyot kidneys, Musculoskeletal: no edema b/l, nl gait , no asterixis, left arm with functional AV fistula, normal femoral pulses bilaterally and with no bruits. Right foot missing first two toes medially. Left footalso missing big toe. Pysch: nl affect, nl judgement Physical Exam REVIEW OF LABORATORY, PATHOLOGY, AND RADIOLOGY DATA: Lab results: LAB RESULTS - Infectious Diseases Infectious Diseases Result Type Result Value Relevant Reference Range Interpretation Date HCV Ab (anti-HCV) Nonreactive No Reference Range Provided - November 20, 2022 Hep B core Ab Total (anti-HBc) Negative No Reference Range Provided - January 15, 2023 Hep B Surface Ag (HBsAg) Negative No Reference Range Provided - June 13, 2023 Hep B Surface Ab (anti-HBs) 317 mIU/mL No Reference Range Provided - June 13, 2023 ASSESSMENT AND PLAN BY PROBLEM: 1) Renal diagnosis: Diabetes 2) Recurrence risk: None 3) Previous transplants: None 4) Dialysis: initiated September 2022. 5) Weight-BMI: Within acceptable range 6) Functional status: Pt can do a flight of stairs without problems. He does yard work and is building a fence. He moves his lawn etc. 7) Cardiopulmonary issues: history of stroke or GA. Patient will need cardiac stress test. 8) Malignancy history: none 9) Health maintenance: none needed due to young age. 10) Diabetes: Yes. He could not afford the approximately $160 monthly charge for his Gale so stopped using it. He is willing to do finger sticks to measure his blood sugars. 11) History of serious infections: Pt has had 3 toes removed due to infections. 12) Urinary bladder dysfunction: No history of bladder dysfunction 13) Hematology/coagulation problems: None 14) Other medical: Back surgery approximately 12 years ago due to hernia. Pt had retinal detachmentin both eyes, needing eye surgery. 15) Other laboratory issues, and anti-HLA antibodies: Pt is not aware of his blood type but denies any blood transfusions. 16) Surgical issues: Will need vasculature evaluated 17) Psychosocial/financial concerns: Will ask patient to see the social services counselor. 18) Plans for post transplant immunosuppression: Standard 3 drug maintenance regimen 19) pending issues: Await report from cardiology and social work consult. I reviewed: Advantages for recipient of a living donor kidney, waitlist process, short-term and long-term complications of kidney transplant, post- transplant clinic attendance expectations and posttransplant medication burden. Total time spent on this encounter, on the date of service, including pre-visit review of separately obtained history, [id number] interaction performing medically appropriate physical exam, patientcounseling/education, interpretation of diagnostic results, care coordination and documentation was52 minutes. I have seen and reviewed: Outside Record(s) Blayne Quiroz MD, 07/03/2023 11:47 AM Disclaimer: Parts of this note have been dictated using [employer] dictation software. Please excuse any special distribution clerk errors and feel free to contact me regarding such errors or confusion regarding intended message. Today's visit was securely recorded for purposes of note generation via [employer] (AI). Verbal consent was obtained form the patient. IBlayne MD, have reviewed the draft documentation generated by AI and appropriate revisions for the final version have been made by me. documented in this encounter Plan of Treatment Upcoming Encounters Date Type Department Care Team (Late st Contact Info) Description 11/20/2023 10:30 AM CDT [place] [facility] [place] [address] [place], [place] [address] Blayne Quiroz MD [address] [place], [place] [address] Scheduled Discharge Disposition: Discharged to home or self care 11/20/2023 12:00 PM CDT [facility] [address] [phone] Scheduled Discharge Disposition: Discharged to home or self care 11/20/2023 12:30 PM CDT [place] [facility] [place] [address] [place], [place] [address] Blayne Quiroz MD [address] [place] [address] Scheduled Discharge Disposition: Discharged to home or self care 11/20/2023 1:00 PM CDT [place] [facility] [place] [place] [address] [place] [address] Blayne Quiroz MD [address] [place], [place] [address] Scheduled Discharge Disposition: Discharged to home or self care 11/20/2023 1:30 PM CDT Office Visit Transplant Program [address] [place], [place] [address] Neva Carbajal MBBS [address] [place], [place] [address] Jade Goode, RD, LD [address] [place], [place] [address] Scheduled Discharge Disposition: Discharged to home or self care 11/20/2023 2:30 PM CDT Nurse Only Transplant Program [address] [place], [place] [address] Neva Carbajal MBBS [address] [place], [place] [address] RnCali-Pre Recipient Scheduled Discharge Disposition: Discharged to home or self care documented as of this encounter Visit Diagnoses Diagnosis Encounter for pre-transplant evaluation for kidney transplant- Primary documented in this encounter
--- OUTSIDE RECORDS SUMMARY | 2023-10-19 14:47 | XMS_ITS | Referral Summary ---
Author Organization [facility] Address [address] [place] [address] Phone Care Team Providers Care Animal Hospital Clerk Name Role Phone Unavailable Primary Care Provider Unavailabl e Source Comments [employer] is fully rolled out on [employer]. Last update 07/31/08.[place] [facility] Encounters Date Type Department Care Team Description 10/03/2023 Documentation Only Transplant Program [address] [place] [address] Williams Lindquist Transplant Optical Store Manager 09/26/2023 Abstract Transplant Program [address] [place] [address] Williams Lindquist, Transplant Optical Store Manager 09/03/2023 Documentation Only Transplant Program [address] [facility] [address] [place] [address] Williams Lindquist Transplant Optical Store Manager 07/20/2023 Orders Only Transplant Program [address] [place] [address] Chinyere Valencia RN Pre-transplant evaluation for ESRD (end stage renal disease) (Primary Dx) from Last 3 Months Allergies Active Allergy Reactions Criticality Noted Date Comments Latex Rash 09/15/2022 Tramadol Other (see comments) 09/15/2022 Medications * Be aware that medications may not be up to date as of this document. Always verify current medications with patient. Medication Sig Dispensed Refills Start Date End Date Status amLODIPine (NORVASC) 10 mg oral tablet Take 1 tablet (10 mg) by mouth daily. 01/15/2023 Active carvedilol (COREG) 6.25 mg oral TABS Take 1 tablet (6.25 mg) by mouth twice daily. Active losartan (COZAAR) 100 mg oral tablet Take 1 tablet (100 mg) by mouth daily. Active GABApentin (NEURONTIN) 300 mg oral capsule Take 1 capsule (300 mg) by mouth daily as needed (RLS). Active nephrocaps (TRIPHRO) 1 MG oral capsule Take 1 capsule (1 mg) by mouth daily in the afternoon. Active sertraline (ZOLOFT) 50 mg oral tablet Take 1 tablet (50 mg) by mouth daily.Total dose 75 mg daily Active sertraline (ZOLOFT) 25 mg oral tablet Take 3 tablets (75 mg) by mouth daily.Takes as a 50 and 25 mg for total dose of 75 mg Active sevelamer carbonate (RENVELA) 800 mg oral tablet Take 3 tablets (2,400 mg) by mouth 3 times daily with meals. Active acetaminophen (TYLENOL) 500 mg oral tablet Take 1 tablet (500 mg) by mouth every 6 hours as needed. Active insulin ASPART MIX 70/30 (NOVOLOG MIX 70/30) 100 units/mL subcutaneous FlexPen Inject subcutaneously twice daily with meals.30 in the AM 20 in the PM Active CHOLEcalciferol (VITAMIN D3) 1000 UNIT oral TABS Take 1 tablet (1,000 UNITS) by mouth daily. Active Active Problems Problem Noted Date Diagnosed Date Anemia due to chronic kidney disease, on chronic dialysis ([facility]) 10/13/2022 Anxiety 10/13/2022 HTN (hypertension) 09/15/2022 Diabetes mellitus ([facility]) 01/27/2002 Social History Tobacco Use Types Packs/Day Years Used Date Smoking Tobacco: Never Assessed Sex and Gender Information Value Date Recorded Sex Assigned at Not on file Gender Identity Not on file Sexual Orientation Not on file Last Filed Vital Signs Vital Sign Reading [...] Mass Index 32.11 07/03/2023 10:02 AM CDT Plan of Treatment Upcoming Encounters Date Type Department Care Team (Late st Contact Info) Description 11/20/2023 10:30 AM CDT Appointment [facility] [place] [address] [place] [address] Blayne Quiroz MD [address] [place], [place] [address] Scheduled Discharge Disposition: Discharged to home or self care 11/20/2023 12:00 PM CDT [facility]ointment [facility] [address] [address] Scheduled Discharge Disposition: Discharged to home or self care 11/20/2023 12:30 PM CDT Appointment [facility] [place] [address] [place], [place] [address] Blayne Quiroz MD [address] [place], [place] [address] Scheduled Discharge Disposition: Discharged to home or self care 11/20/2023 1:00 PM CDT Appointment [facility] [address] [place], [place] [address] Blayne Quiroz MD [address] [place], [place] [address] Scheduled Discharge Disposition: Discharged to home or self care 11/20/2023 1:30 PM CDT Office Visit Transplant Program [address] [place], [place] [address] Neva Carbajal MBBS [address] [place], [place] [address] Jade Goode, RD, LD [address] [place], [place] [address] Scheduled Discharge Disposition: Discharged to home or self care 11/20/2023 2:30 PM CDT Nurse Only Transplant Program [address] [place], [place] [address] Neva Carbajal MBBS [address] [place] [address] Rn, Cali-Pre Recipient Scheduled Discharge Disposition: Discharged to home or self care
--- OUTSIDE RECORDS SUMMARY | 2023-10-19 14:47 | XMS_ITS | Encounter Summary ---
Author Organization [facility] Address [address] [place] [address] Phone Care Team Providers Care Information Services Assistant Name Role Phone Unavailable Primary Care Provider Unavailabl e Encounter Details Date Type Department Care Team (Late st Contact Info) Description 09/03/2023 Documentation Only Transplant Program [address] [place], [place] [address] Williams Lindquist Transplant Geothermal Powerplant Supervisor [address] [place], [place] [address] Social History Tobacco Use Types Packs/Day Years Used Date Smoking Tobacco: Never Assessed Sex and Gender Information Value Date Recorded Sex Assigned at Not on file Gender Identity Not on file Sexual Orientation Not on file documented as of this encounter Progress Notes * Williams Lindquist Transplant Geothermal Powerplant Supervisor - 09/03/2023 9:30 AM CDT D/A: Patient's Emergency Medical Assistance checked in [facility] website and found to be inactive. Patient was called with programming equipment operator and given this information. Patient responded in Trinid[place] and does not need an health club attendant. Patient stated he believes everything has been covered. Explained that his coverage was checked in the Medical Assistance website which his ID number was entered and the response listed his name and that coverage is inactive. Patient was told to contact [facility] appears he needs to renew his coverage. Patient was also told that appointments scheduled for 09/04/2023 will be canceled. Patient was requested to call when his coverage is in place again. record center coordinator aware. Brenna Lindquist Transplant Geothermal Powerplant Supervisor, Sunday September 03, 2023 09:35 Electronically signed by Williams Lindquist Transplant Geothermal Powerplant Supervisor at 09/03/2023 9:37 AM CDT documented in this encounter Plan of Treatment Upcoming Encounters Date Type Department Care Team (Late st Contact Info) Description 11/20/2023 10:30 AM CDT Appointment [facility] [place] [address] [place] [address] Blayne Quiroz MD [address] [place], [place] [address] Scheduled Discharge Disposition: Discharged to home or self care 11/20/2023 12:00 PM CDT [facility]ment [facility] [address] [phone] Scheduled Discharge Disposition: Discharged to home or self care 11/20/2023 12:30 PM CDT Appointment [facility] [place] [address] [place], [place] [address] Blayne Quiroz MD [address] [place], [place] [address] Scheduled Discharge Disposition: Discharged to home or self care 11/20/2023 1:00 PM CDT Appointment [facility] [place] [address] [place], [place] [address] Blayne Quiroz MD [address] [place], [place] [address] Scheduled Discharge Disposition: Discharged to home or self care 11/20/2023 1:30 PM CDT Office Visit Transplant Program [address] [place], [place] [address] Neva Carbajal MBBS [address] [place], [place] [address] Jade Goode, RD, LD [address] [place], [place] [address] Scheduled Discharge Disposition: Discharged to home or self care 11/20/2023 2:30 PM CDT Nurse Only Transplant Program [address] [place] [address] Neva Carbajal MBBS [address] [place] [address] Rn, Cali-Pre Recipient Scheduled Discharge Disposition: Discharged to home or self care documented as of this encounter Visit Diagnoses Not on filedocumented in this encounter
--- OUTSIDE RECORDS SUMMARY | 2023-10-19 14:47 | XMS_ITS | Encounter Summary ---
Author Organization [facility] Address [address] [place] [address] Phone Care Team Providers Care Commissioning Agent Name Role Phone Unavailable Primary Care Provider Unavailabl e Encounter Details Date Type Department Care Team (Late st Contact Info) Description 04/25/2023 Abstract Transplant Program [address] [place], [place] [address] Williams Lindquist, Transplant Delivery Crew Member [address] [place], [place] [address] Social History Tobacco Use Types Packs/Day Years Used Date Smoking Tobacco: Never Assessed Sex and Gender Information Value Date Recorded Sex Assigned at Not on file Gender Identity Not on file Sexual Orientation Not on file documented as of this encounter Plan of Treatment Upcoming Encounters Date Type Department Care Team (Late st Contact Info) Description 11/20/2023 10:30 AM CDT Appointment [facility] [place] [address] [place], [place] [address] Blayne Quiroz MD [address] [place], [place] [address] Scheduled Discharge Disposition: Discharged to home or self care 11/20/2023 12:00 PM CDT [facility]ointment [facility] [address] [address] Scheduled Discharge Disposition: Discharged to home or self care 11/20/2023 12:30 PM CDT Appointment [facility] [place] [address] [place], [place] [address] Blayne Quiroz MD [address] [place] [address] Scheduled Discharge Disposition: Discharged to home or self care 11/20/2023 1:00 PM CDT [facility] [address] [place] [address] Blayne Quiroz MD [address] [facility] [address] [place], [place] [address] Scheduled Discharge Disposition: Discharged to home or self care 11/20/2023 1:30 PM CDT Office Visit Transplant Program [address] [place], [place] [address] Neva Carbajal MBBS [address] [facility] [address] [place], [place] [address] Jade Goode RD, LD [address] [place], [place] [address] Scheduled Discharge Disposition: Discharged to home or self care 11/20/2023 2:30 PM CDT Nurse Only Transplant Program [address] [place], [place] [address] Neva Carbajal MBBS [address] [place], [place] [address] Rn, Cali-Pre Recipient Scheduled Discharge Disposition: Discharged to home or self care documented as of this encounter Visit Diagnoses Not on filedocumented in this encounter
--- OUTSIDE RECORDS SUMMARY | 2023-10-19 14:47 | XMS_ITS | Clinical Summary ---
Author Organization [facility] Address [address] [place] [address] Phone Care Team Providers Care Radiation Technician Name Role Phone Unavailable Primary Care Provider Unavailabl e Source Comments Crisp is fully rolled out on [email or web address]. Last update 07/31/08.[facility] Allergies Active Allergy Reactions Criticality Noted Date [...] to chronic kidney disease, on chronic dialysis ([facility]) 10/13/2022 Anxiety 10/13/2022 HTN (hypertension) 09/15/2022 Diabetes mellitus ([facility]) 01/27/2002 Encounters Date Type Department Care Team Description 10/03/2023 Documentation Only Transplant Program [address] [place] [address] Williams Lindquist, Transplant Remote Broadcast Engineer 09/26/2023 Abstract Transplant Program [address] [place] [address] Williams Lindquist, Transplant Remote Broadcast Engineer 09/03/2023 Documentation Only Transplant Program [address] [place] [address] Williams Lindquist, Transplant Remote Broadcast Engineer 07/20/2023 Orders Only Transplant Program [address] [place] [address] Chinyere Valencia RN Pre-transplant evaluation for ESRD (end stage renal disease) (Primary Dx) from Last 3 Months Social History Tobacco [...] Info) Description 11/20/2023 10:30 AM CDT Appointment [facility] [address] [place] [address] Blayne Quiroz MD [address] [place], [place] [address] Scheduled Discharge Disposition: Discharged to home or self care 11/20/2023 12:00 PM CDT [facility]ointment [facility] [address] [address] Scheduled Discharge Disposition: Discharged to home or self care 11/20/2023 12:30 PM CDT Appointment [facility] [address] [place], [place] [address] Blayne Quiroz MD [address] [place], [place] [address] Scheduled Discharge Disposition: Discharged to home or self care 11/20/2023 1:00 PM CDT Appointment [facility] XRAY [address] [place], [place] [address] Blayne Quiroz MD [address] [place], [place] [address] Scheduled Discharge Disposition: Discharged to home or self care 11/20/2023 1:30 PM CDT Office Visit Transplant Program [address] [place], [place] [address] Neva Carbajal MBBS [address] [place], [place] [address] Jade Goode, RD, LD [address] [place], [place] [address] Scheduled Discharge Disposition: Discharged to home or self care 11/20/2023 2:30 PM CDT Nurse Only Transplant Program [address] [place], [place] [address] Neva Carbajal MBBS [address] [place] [address] Rn, Cali-Pre Recipient Scheduled Discharge Disposition: Discharged to home or self care Health Maintenance Due Date Last Done Comments Dental Oral Exam 1980 Dental Prophylaxis 1980 Dental X-Ray: Bitewings 1980 Diabetes Education 10/14/1980 Diabetes Eye Exam 10/14/1980 Diabetes Foot Exam 10/14/1980 Diabetes Microalbumin Screening 10/14/1980 Diabetic Education Protocol (CDE) 10/14/1980 Diabetic Lab Protocol 10/14/1980 Imm: Pneumonia Peds or At-Risk less than 65 years (1 of 2 - PCV) 10/14/1985 Imm: DTaP/Tdap (1 - Tdap) 10/14/1986 Periodontal Maintenance 10/14/1993 HIV Screening 10/14/1994 PREVENTATIVE VISIT 10/14/1997 HEALTH MAINTENANCE PROTOCOL 10/14/1998 Imm: COVID-19 ( season) 2022 Imm: HepB (2 of 2 - CpG 2-dose series) 12/13/2022 11/15/2022 Diabetes HGB A1C Q 3 Months (Goal <7) 09/03/2023 06/04/2023, 06/04/2023, 09/15/2022, Additional history exists Imm: Flu (#1) 10/28/2023 05/18/2023 Lipid Screening 12/06/2026 12/06/2021, 05/1 02/2021, 04/07/2020 Imm: Zoster (1 of 2) 10/14/2029 Imm: HPV Aged Out No longer eligi ble based on patient's age to complete this topic Imm: HepA Aged Out No longer eligi ble based on patient's age to complete this topic Imm: Hib Aged Out No longer eligi ble based on patient's age to complete this topic Imm: Meningitis Aged Out No longer el igible based on patient's age to complete this topic
--- OUTSIDE RECORDS SUMMARY | 2023-10-19 14:48 | XMS_ITS | Encounter Summary ---
Author Organization [facility] Address [address] [facility] [address] [place] [address] Care Team Providers Care Alterations Workroom Clerk Name Role Phone Unavailable Primary Care Provider Unavailabl e Encounter Details Date Type Department Care Team (Late st Contact Info) Description 07/25/2023 Orders Only [facility] [place] [address] [place] [address] Julito Cortez MD [address] [place] [address] Social History Tobacco Use Types Packs/Day Years Used Date Smoking Tobacco: Never Assessed Sex and Gender Information Value Date Recorded Sex Assigned at Not on file Gender Identity Not on file Sexual Orientation Not on file documented as of this encounter Plan of Treatment Not on file documented as of this encounter Procedures Procedure Name Priority Date/Time Associated Diagnosis Comments HEMATOLOGY Routine 07/25/2023 CHEMISTRY Routine 07/25/2023 documented in this encounter Results * (ABNORMAL) HEMATOLOGY (07/25/2023) Hemoglobin 10.4(L) 14.0 - 18.0 g/dL [facility] Hemoglobin x 3 31.2(L) 42.0 - 54.0 % [facility] 07/25/2023 07/26/2023 3:5 8 PM CDT Narrative [facility] - 07/26/2023 Unless otherwise specified, test(s) performed at: [facility], [address] [place] [address], [place] [address] WORKING SUPERVISOR: Gurdeep Ricardo M.D., Ph.D For any questions, please call customer service at FREQUENCY:OTHER Resulting Agency Comment Specimen source: Blood Julito Cortez MD LAB BLOOD ORDERABLES Performing Organization Address [facility] de Phone Number [facility] See order comments or contact performing lab Unknown, [place] * [facility] (07/25/2023) Calcium 9.1 8.7 - 10.4 mg/dL [facility] Comment: Please note change in reference range. 07/25/2023 07/26/2023 8:5 3 AM CDT Narrative [facility] - 07/26/2023 Unless otherwise specified, test(s) performed at: [facility], [address] [place] [address], [place] [address] WORKING SUPERVISOR: Gurdeep Ricardo M.D., Ph.D For any questions, please call customer service at FREQUENCY:OTHER Resulting Agency Comment Specimen source: Serum Julito Cortez MD LAB BLOOD ORDERABLES Performing Organization Address [facility]/ZIP Co de Phone Number [facility] See order comments or contact performing lab Unknown, [place] documented in this encounter Visit Diagnoses Not on filedocumented in this encounter
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
--- OUTSIDE RECORDS SUMMARY | 2023-10-19 14:48 | XMS_ITS | Encounter Summary ---
Author Organization [facility] Address [address] [facility] [address] [facility] [address] [place] [address] Care Team Providers Care Master Craftsman Name Role Phone Unavailable Primary Care Provider Unavailabl e Encounter Details Date Type Department Care Team (Late st Contact Info) Description 07/11/2023 Orders Only [facility] [place] [address] [place] [address] Julito Cortez MD [address] [place] [address] Social History Tobacco Use Types Packs/Day Years Used Date Smoking Tobacco: Never Assessed Sex and Gender Information Value Date Recorded Sex Assigned at Not on file Gender Identity Not on file Sexual Orientation Not on file documented as of this encounter Plan of Treatment Not on file documented as of this encounter Procedures Procedure Name Priority Date/Time Associated Diagnosis Comments HD KINETICS Routine 07/11/2023 POST CHEMISTRY Routine 07/11/2023 HEMATOLOGY Routine 07/11/2023 CHEMISTRY Routine 07/11/2023 [facility] RESULTS Routine 07/11/2023 documented in this encounter Results * [facility] Results (07/11/2023) WSTDKT/V 2.5 [facility] nPCR_HD 1.05 [facility] eNPCR 0.98 [facility] eKt/V ([place]) 1.42 [facility] PCR 67.84 [facility] spKt/V (Daugirdas II) 1.64 [facility] spKt/V [facility]ch [facility] e[facility]/V 1.46 [facility] 07/11/2023 07/11/2023 Shireen Ordering Provider LAB BLOOD ORDERABLE S [facility] Contact Performing lab Unknown, [place] * (ABNORMAL) HEMATOLOGY (07/11/2023) WBC 4.34(L) 4.80 - 10.80 1000/mcL [facility] RBC 3.03(L) 4.70 - 6.10 mill/mcL [facility] Hematocrit 31.6(L) 42.0 - 52.0 % [facility] MCV 104(H) 80 - 100 fl [facility] MCH 33.9(H) 27.0 - 31.0 pg [facility] MCHC 32.6 30.0 - 36.0 g/dL [facility] RDW 15.5(H) 11.5 - 14.5 % [facility] Hemoglobin 10.3(L) 14.0 - 18.0 g/dL [facility] Hemoglobin x 3 30.9(L) 42.0 - 54.0 % [facility] Platelets 96(L) 130 - 400 1000/mcL [facility] 07/11/2023 07/13/2023 1:3 0 PM CDT Narrative [facility] - 07/13/2023 Unless otherwise specified, test(s) performed at: [facility], [address] [place] [address], [place] [address] CLINICAL PRODUCT MANAGER: Gurdeep Ricardo M.D., Ph.D For any questions, please call customer service at FREQUENCY:MONTHLY Resulting Agency Comment Specimen source: Blood Julito Cortez MD LAB BLOOD ORDERABLES [facility] See order comments or contact performing lab Unknown, [place] * HD KINETICS (07/11/2023) % Urea Reduction 75 65 - 80 % [facility] 07/11/2023 07/13/2023 11: 10 AM CDT Narrative [facility] - 07/13/2023 Unless otherwise specified, test(s) performed at: [facility], [address] [place] [address], [place] [address] CLINICAL PRODUCT MANAGER: Gurdeep Ricardo M.D., Ph.D For any questions, please call customer service at FREQUENCY:MONTHLY Resulting Agency Comment Specimen source: Plasma Julito Cortez MD LAB BLOOD ORDERABLES [facility] See order comments or contact performing lab Unknown, [place] * (ABNORMAL) [facility] (07/11/2023) BUN 56(H) 6 - 19 mg/dL [facility] Creatinine 9.23(H) 0.60 - 1.30 mg/dL [facility] BUN/Creatinine Ratio 6.1(L) 10.0 - 20.0 [facility] Sodium 137 136 - 145 mEq/L [facility] Potassium 5.2(H) 3.5 - 5.1 mEq/L [facility] Chloride 102 96 - 108 mEq/L [facility] Bicarbonate (CO2) 23 20 - 31 mEq/L [facility] Calcium 10.4 8.7 - 10.4 mg/dL [facility] Comment: Please note change in reference range. Custom Exception Corrected Calcium 10.3 8.7 - 10.4 mg/dL [facility] Comment: Corrected Calcium is not equivalent to measured Ionized Calcium. Phosphorus 6.4(H) 2.6 - 4.5 mg/dL [facility] Calcium Phosphorus Product 67(H) 0 - 54 [facility] Calcium Phosporus Product, Cor 66(H) 0 - 54 [facility] Total Protein 6.8 6.0 - 8.5 g/dL [facility] Albumin 4.1 3.5 - 5.2 g/dL [facility] Globulin, Total 2.7 2.0 - 4.0 g/dL [facility] A/G Ratio 1.5 1.0 - 2.0 [facility] Iron 72 45 - 160 mcg/dL [facility] UIBC 160 155 - 355 mcg/dL [facility] TIBC 232 185 - 515 mcg/dL [facility] Iron Saturation (TSat) 31 20 - 55 % [facility] 07/11/2023 07/13/2023 1:1 7 PM CDT Narrative [facility] - 07/13/2023 Unless otherwise specified, test(s) performed at: [facility], [address] [place] [address], [place] [address] CLINICAL PRODUCT MANAGER: Gurdeep Ricardo M.D., Ph.D For any questions, please call customer service at FREQUENCY:MONTHLY Resulting Agency Comment Specimen source: Serum Julito Cortez MD LAB BLOOD ORDERABLES Performing Organization Address [facility] de Phone Number [facility] See order comments or contact performing lab Unknown, [place] * POST CHEMISTRY (07/11/2023) BUN Post Dialysis 14 6 - 19 mg/dL [facility] 07/11/2023 07/13/2023 11: 10 AM CDT Narrative [facility] - 07/13/2023 Unless otherwise specified, test(s) performed at: [facility], [address] [place] [address], [place] [address] CLINICAL PRODUCT MANAGER: Gurdeep Ricardo M.D., Ph.D For any questions, please call customer service at FREQUENCY:MONTHLY Resulting Agency Comment Specimen source: Plasma Julito Cortez MD LAB BLOOD ORDERABLES Performing Organization Address [facility] Co de Phone Number [facility] [employer] [facility] See order comments or contact performing lab Unknown, [place] documented in this encounter Visit Diagnoses Not on filedocumented in this encounter
--- OUTSIDE RECORDS SUMMARY | 2023-10-19 14:48 | XMS_ITS | Encounter Summary ---
Author Organization [facility] Address [address] [facility] [address] [place] [address] Care Team Providers Care Director Of Nuclear Medicine Name Role Phone No, Pcp Primary Care Provider [phone] Encounter Details Date Type Department Care Team (Late st Contact Info) Description 09/10/2023 Orders Only [facility] [place] [address] [place] [address] Julito Cortez MD [address] [place] [address] Social History Tobacco Use Types Packs/Day Years Used Date Smoking Tobacco: Never Assessed Sex and Gender Information Value Date Recorded Sex Assigned at Not on file Gender Identity Not on file Sexual Orientation Not on file documented as of this encounter Plan of Treatment Not on file documented as of this encounter Procedures Procedure Name Priority Date/Time Associated Diagnosis Comments CHEMISTRY Routine 09/10/2023 documented in this encounter Results * (ABNORMAL) [facility] (09/10/2023) Potassium 6.0(H) 3.5 - 5.1 mEq/L [facility] 09/10/2023 09/11/2023 3:3 0 AM CDT Narrative [facility] - 09/11/2023 Unless otherwise specified, test(s) performed at: [facility], [address] [place] [address], [place] [address] ANGIO TECHNOLOGIST: Gurdeep Ricardo M.D., Ph.D For any questions, please call customer service at FREQUENCY:OTHER Resulting Agency Comment Specimen source: Serum Julito Cortez MD LAB BLOOD ORDERABLES [facility] See order comments or contact performing lab Unknown, [place] documented in this encounter Visit Diagnoses Not on filedocumented in this encounter Care Teams Director Of Nuclear Medicine Relationship Specialty Start Date End Date No, Pcp PCP - General Internal Medicine 09/10/23 documented as of this encounter
--- OUTSIDE RECORDS SUMMARY | 2023-10-19 14:48 | XMS_ITS | Encounter Summary ---
Author Organization [facility] Address [address] [facility] [address] [place] [address] Care Team Providers Care Deputy Sheriff Building Guard Name Role Phone Unavailable Primary Care Provider Unavailabl e Encounter Details Date Type Department Care Team (Late st Contact Info) Description 08/22/2023 Orders Only [facility] [place] [address] [place] [address] Julito Cortez MD [address] [place] [address] Social History Tobacco Use Types [...] Priority Date/Time Associated Diagnosis Comments HEMATOLOGY Routine 08/22/2023 documented in this encounter Results * (ABNORMAL) HEMATOLOGY (08/22/2023) Hemoglobin 10.1(L) 14.0 - 18.0 g/dL [facility] Hemoglobin x 3 30.3(L) 42.0 - 54.0 % [facility] 08/22/2023 08/23/2023 4:4 8 AM CDT Narrative [facility] - 08/23/2023 Unless otherwise specified, test(s) performed at: [facility], [address] [place] [address], [place] [address] MEMBERSHIP SECRETARY: Gurdeep Ricardo M.D., Ph.D For any questions, please call customer service at FREQUENCY:OTHER Resulting Agency Comment Specimen source: Blood Julito Cortez MD LAB BLOOD ORDERABLES [facility] See order comments or contact performing lab Unknown, [place] documented in this encounter Visit Diagnoses Not on filedocumented in this encounter
--- OUTSIDE RECORDS SUMMARY | 2023-10-19 14:48 | XMS_ITS | Encounter Summary ---
Author Organization [facility] Address [address] [place] [address] Care Team Providers Care Benefits Manager Name Role Phone Unavailable Primary Care Provider Unavailabl e Encounter Details Date Type Department Care Team (Late st Contact Info) Description 08/13/2023 Treatment [facility] [address] [place] [address] Julito Cortez MD [address] [facility] [address] [place] [address] Social History Tobacco Use Types Packs/Day Years Used Date Smoking Tobacco: Never Assessed Sex and Gender Information Value Date Recorded Sex Assigned at Not on file Gender Identity Not on file Sexual Orientation Not on file documented as of this encounter Miscellaneous Notes * Dialysis Note - Julito Cortez MD - 08/13/2023 1:19 PM CDT Date: Aug 13, 2023 Patient Name: Maco Stein : 1980 Chart #: [id number] Sex: M This patient was personally seen for a complete visit as part of routine monthly dialysis care. A review of the dialysis treatment, blood pressure, estimated dry weight and recent lab values was made. These were discussed with the patient and staff as necessary. Treatment Data for 08/13/2023 started at:1:07 PM Dialyzer: 180NRe Optiflux Na: 138 mEq/L Bicarb: 31 mEq/L Dialysate: 2.0 K, 2.5 Ca, 1.0 Mg, 100 Dextrose (G2251) Dialysate/Machine Temp (prescribed): 36 C Dialysate/Machine Temp (actual): 35.8 C BFR (prescribed): 450 BFR (actual): 450 Prescribed time: 03:45 EDW: 94.5 kg Access Type: Pre Dialysis Vitals (for 08/13/2023 1:03 PM ) Pre BP (sit): 188/99 Pre Wt: 97.9 kg Temp: 96.4 F Post Dialysis Vitals (for 08/10/2023 4:29 PM ) Post BP (sit): 132/72 Post Wt: 94.5 kg Current Dialysis Vitals (for 08/13/2023 1:14 PM ) BP (sit): 188/99 AP(-) / STONE FABRICATOR: 188/204 Pulse: 78 Chairside data as of 08/13/2023 1:14 PM Last 3 Treatments 08/10/2023 08/08/2023 08/06/2023 EDW (kg) 94.5 94.5 94.5 Weight Pre (kg) 99 99.8 100.9 Weight Post (kg) 94.5 96.4 96 Dialytic Weight Loss (kg) -4.5 -3.4 -4.9 EDW Deviation (kg) 0.0 1.9 1.5 BP Sit Pre 163/88 165/85 176/91 BP Sit Post 132/72 134/64 167/77 UF Rate (mL/kg/hr) 13 9 14 Prescribed BFR 450 450 450 Average Delivered BFR 450 440 420 Prescribed Treatment Time 03:45 03:45 03:45 Actual Treatment Time 03:45 03:49 03:45 Last 3 Values 08/06/2023 07/02/2023 06/04/2023 Access Flow > 1999 1792 1974 LOW PRESSURE KETTLE OPERATOR: Julito Cortez MD LOCATION: [phone] SCHEDULE: M-W- 2nd Shift EDW: kg. DIALYZER: HD DURATION: NEEDLE SIZE: ANTICOAG: BATH: QB: ml/min QD: ml/min Subjective 08/13/23: Gaining wt, has been eating more due to low BS. Dtr graduated HS and he will do HHD. awaiting HHD training dates. 07/13/23: Feels well. BP's still high. occ MORA. no SOB or CP. 06/29/23: Feels well. no SOB or CP. has appt next week at [facility] Txp. 06/15/23: Feels well. no concerns. cost was a barrier to getting the Lokelma, hasn't obtained it,yet. 05/01/23: Feels well. no SOB or CP. No N/v/d. Stable wt. BP's are better. 04/10/23: Feels well, 2nd day with 2 16 g needles in. no SOB or CP. 03/01/23: HD going well. but having L AVF/arm discomfort/numbness, worse on the run. has appt at [facility] [place] Tu with Dr. Solorzano. fingers cool but not cold, no weakness, no pain. Interested in HHD and going to for education tomorrow. referred for txp to [facility]. 01/24/23: Feels well, got his AVF at [facility] yesterday. no arm pain. no SOB or CP. 12/25/22: BP is better after lowering his meds. still has ringing in his ears at end of every run, and leaving about EDW and no edema or SOB. Going for AVF soon. still can't do Txp eval until insurance is confirmed. 11/24/22: Feels fine today. No SOB or CP. hasn't been to [facility], yet. no N/V. 11/01/22: my second time seeing him. feels better. has had some tinnitus. BP is high but no MORA, blurry vision, CP or SOB. appetite is better. Taking losartan 50 mg/d. 10/02/22: My first time meeting him. his second time here, started here 09/29. Came from [facility] where he initiated. Feels ok today. no SOB or CP Advanced Practitioner Subjective SCIENTIFIC PROGRAMMER ANALYST 08/01/2023:Seen on dialysis. Doing well. No SOB, or chest pain reported. Arm access working well; no reported issues. BP slightly elevated. Leaving close to EDW. Potassium improved. Continue plan ofcare. SCIENTIFIC PROGRAMMER ANALYST 06/06/2023: Patient seen on dialysis. Doing well. Denies SOB, chest pain, cramping or fevers. Leaving at EDW with recent runs. BP still elevated today. PCAD functional; no reported issues. Elevatedpotassium around 6; could be losartan 100 mg. Will try lokelma once weekly. Patient educated on potassium foods and medication consistency. Continue to challenge EDW as tolerated. Review of Systems None reported. Problem List Description ICD9 Code ICD10 Code Type 2 diabetes mellitus 250.00 E11.9 End stage renal disease 585.6 N18.6 Dependence on renal dialysis V45.11 Z99.2 Exam Respiratory - Clear to auscultation bilaterally. normal respiratory effort Cardiovascular - Regular rate. Regular rhythm. Edema - No leg edema. Access - using AVF. 04/10/23: using L AVF with 2 16 g needles 01/24/23 L AVF dressed, + T/B, hand warm Medication List Medication Sig Start Date Coreg (carvedilol) 12.5 mg tablet Take 1 tablet by mouth twice a day 07/13/2023 gabapentin 300mg once a day Lokelma (sodium zirconium cyclosilicate) 10 gram powder in packet Take 1 packet by mouth once a week as directed. Take 10 gram by mouth once weekly on Sunday06/06/2023 losartan 100 mg tablet take 100mg one time a day in the AM nifedipine 30 mg tablet extended release Take 1 tablet by mouth twice a day 07/13/2023 RenaPlex-D (vit b,b-yo-fbhj-selen-vit d3-e) 800 mcg-12.5 mg-2,000 unit tablet Take 1 tablet by mouth every evening sertraline 75mg once a day sevelamer carbonate 800 mg tablet Take 3 tablet by mouth three times a day with meals. take with all meals 03/27/2023 Allergy List Allergen Reaction Reaction Severity Onset Date LATEX Unknown~Unknown Medications reviewed and no changes were made. 07/13/23: Increase Coreg to 12.5 BID and replace Norvasc to Nifedipine XL 30 BID 11/01/22: increase losartan to 100 mg q evening 10/02/22: d/c hydralazine. add Losartan 50 mg/d Treatment and Adequacy Assessment BUN mg/dL 56 (07/11/23) 66 (06/13/23) 52 (05/16/23) 78 (04/19/23) 83 (03/15/23) UREA NITROGEN (MG/DL) IN SER/PLAS - POST DIALYSIS mg/dL 14 (07/11/23) 18 (06/13/23) 14 (05/16/23) 19 (04/19/23) 18 (03/15/23) URR % 75 (07/11/23) 73 (06/13/23) 73 (05/16/23) 76 (04/19/23) 78 (03/15/23) spKt/V Gotch 1.7 (07/11/23) 1.58 (06/13/23) 1.64 (05/16/23) 1.7 (04/19/23) 1.82 (03/15/23) eKdrt/V 1.46 (07/11/23) 1.36 (06/13/23) 1.41 (05/16/23) 1.46 (04/19/23) 1.57 (03/15/23) spKt/V (Daugirdas II) 1.6400 (07/11/23) 1.5400 (06/13/23) 1.5700 (05/16/23) 1.6500 (04/19/23) 1.7700 (03/15/23) Dialysis is adequate. Achieves prescribed time - Yes Achieves prescribed frequency - Yes Missed treatments in past 30 days - 0 Continue current prescription. 08/13/23: Labs pending 11/01/22: adequate by medicare stds, increase time to 3'45''. needs an arm access Vascular Access Assessment Type of access: Fistula Surgeon - IR at [facility] Staff and patient report access is working well. Send to Surgeon for access creation. 04/10/23: using AVF d #2 today. 03/01/23: may have steal, going to see surgeon 03/06/23 01/24/23 L AVF at [facility] 01/23/23 (see OP note) 12/25/22: has [facility] appt upcoming 11/01/22: needs AVF eval at [facility] 10/02/22: needs AVF eval at [facility] Anemia Assessment HEMOGLOBIN (G/DL) IN BLOOD g/dL 10.2 (08/08/23) 10.3 (08/01/23) 10.4 (07/25/23) 10.0 (07/20/23) 10.3 (07/11/23) PLATELETS 1000/mcL 96 (07/11/23) 127 (06/13/23) 131 (05/16/23) 118 (04/19/23) 105 (03/15/23) FERRITIN ng/mL 480 (04/19/23) 633 (03/15/23) 289 (01/15/23) 209 (12/13/22) 294 (11/20/22) TRANSFERRIN SAT% % 31 (07/11/23) 36 (06/13/23) 37 (05/16/23) 26 (04/19/23) 35 (03/15/23) Hemoglobin is at goal. Iron Saturation is at goal. Ferritin is at goal. Will adjust AVE and intravenous iron per protocol. 08/13/23: Labs pending Nutritional and Metabolic Assessment ALBUMIN (G/DL) g/dL 4.1 (07/11/23) 4.1 (06/13/23) 4.2 (05/16/23) 4.0 (04/19/23) 4.2 (03/15/23) Sodium mEq/L 137 (07/11/23) 130 (06/13/23) 136 (05/16/23) 140 (04/19/23) 138 (03/15/23) POTASSIUM (MMOL/L) IN SER/PLAS mEq/L 5.2 (07/11/23) 5.3 (06/13/23) 5.2 (06/04/23) 6.3 (05/30/23) 6.2 (05/16/23) BICARBONATE (CO2) mEq/L 23 (07/11/23) 24 (06/13/23) 29 (05/16/23) 26 (04/19/23) 25 (03/15/23) 25 OH VITAMIN D ng/mL 28.6 (01/15/23) 26.2 (11/20/22) 12.5 (09/29/22) Albumin is at goal. Encourage high-biological value protein intake. Potassium is at goal. Encourage low potassium diet. Bicarbonate is at goal. Continue same bicarbonate in dialysate. 08/13/23: Labs pending SCIENTIFIC PROGRAMMER ANALYST 02/08/2023: Educated on low potassium foods. Bone and Mineral Metabolism Assessment CALCIUM mg/dL 9.1 (07/25/23) 10.4 (07/11/23) 9.0 (06/13/23) 8.6 (05/16/23) 9.0 (04/19/23) CALCIUM (MG/DL) CORRECTED FOR ALBUMIN IN SER/PLAS mg/dL 10.3 (07/11/23) 8.9 (06/13/23) 8.4 (05/16/23) 9.0 (04/19/23) 8.4 (03/15/23) PHOSPHATE (MG/DL) IN SER/PLAS mg/dL 6.4 (07/11/23) 6.4 (06/13/23) 4.0 (05/16/23) 7.8 (04/19/23) 6.5 (03/22/23) CALCIUM PHOSPHORUS PRODUCT, COR 66 (07/11/23) 57 (06/13/23) 34 (05/16/23) 70 (04/19/23) 71 (03/15/23) IPTH pg/mL 189 (05/25/23) 758 (03/06/23) 721 (02/15/23) 1065 (01/15/23) 1218 (12/20/22) Corrected Calcium is at goal. Phosphorous is above goal. Ca X P product is at goal. Intact PTH is at goal. Battery Repairer will adjust binders and vitamin D per protocol and continue to provide dietary education. 08/13/23: Labs pending Cardiovascular Assessment Blood pressures reviewed and are acceptable. Intradialytic weight gains are appropriate. Estimated dry weight is appropriate. Continue same cardiovascular medications. SCIENTIFIC PROGRAMMER ANALYST 05/11/2023 decreased to 95.5 kg 03/01/23: increase 96 12/25/22: increase 93.5 11/24/22: increase 92 11/01/22: increase losartan to 100 mg q evening. next would add CCB, edw 93.5 SCIENTIFIC PROGRAMMER ANALYST 10/09/2022: Had been still taking hydralazine; not started losartan. Instructed to make change 10/02/22: d/c hydralazine, add Losartan 50 mg q evening. Transplant Status: Patient has been referred. Center - [facility] 04/10/23: got his LEA in Jan and was referred to [facility], still waiting to hear back 11/24/22: not a candidate until gets insurance. Resuscitation Status Discussed with patient who requested Full Code. Julito Cortez MD [ Signed And locked electronically On 08/13/2023 at 01:21:02 PM ] Transcribed: Julito Cortez ( 08/13/2023 ) documented in this encounter Plan of Treatment Not on file documented as of this encounter Visit Diagnoses Not on filedocumented in this encounter
--- OUTSIDE RECORDS SUMMARY | 2023-10-19 14:48 | XMS_ITS | Encounter Summary ---
Author Organization [facility] Address [address] [facility] [address] [place] [address] Care Team Providers Care Expeditionary Force Combat Skills Name Role Phone Unavailable Primary Care Provider Unavailabl e Encounter Details Date Type Department Care Team (Late st Contact Info) Description 07/20/2023 Orders Only [facility] [place] [address] [place] [address] Julito Cortez MD [address] [place] [address] Social History Tobacco Use Types [...] Priority Date/Time Associated Diagnosis Comments HEMATOLOGY Routine 07/20/2023 documented in this encounter Results * (ABNORMAL) HEMATOLOGY (07/20/2023) Hemoglobin 10.0(L) 14.0 - 18.0 g/dL [facility] Hemoglobin x 3 30.0(L) 42.0 - 54.0 % [facility] Reticulocyte Hemoglobin 36.5(H) 25.4 - 31.8 pg [facility] Comment: Verified by repeat analysis. 07/20/2023 07/21/2023 3:5 9 AM CDT Narrative [facility] - 07/21/2023 Unless otherwise specified, test(s) performed at: [facility], [address] [place] [address], [place] [address] DEAN OF STUDENT SERVICES: Gurdeep Ricardo M.D., Ph.D For any questions, please call customer service at FREQUENCY:OTHER Resulting Agency Comment Specimen source: Blood Julito Cortez MD LAB BLOOD ORDERABLES [facility] See order comments or contact performing lab Unknown, [place] documented in this encounter Visit Diagnoses Not on filedocumented in this encounter
--- OUTSIDE RECORDS SUMMARY | 2023-10-19 14:48 | XMS_ITS | Encounter Summary ---
Author Organization [facility] Address [address] [place] [address] Care Team Providers Care Candy Starch Mold Printer Name Role Phone Unavailable Primary Care Provider Unavailabl e Encounter Details Date Type Department Care Team (Late st Contact Info) Description 08/08/2023 Orders Only [facility] [place] [address] [place] [address] Julito Cortez MD [address] [place] [address] Social History Tobacco Use Types [...] Priority Date/Time Associated Diagnosis Comments HEMATOLOGY Routine 08/08/2023 documented in this encounter Results * (ABNORMAL) HEMATOLOGY (08/08/2023) Hemoglobin 10.2(L) 14.0 - 18.0 g/dL [facility] Hemoglobin x 3 30.6(L) 42.0 - 54.0 % [facility] 08/08/2023 08/09/2023 3:5 6 AM CDT Narrative [facility] - 08/09/2023 Unless otherwise specified, test(s) performed at: [facility], [address] [place] [address], [place] [address] COUNCILOR: Gurdeep Ricardo M.D., Ph.D For any questions, please call customer service at FREQUENCY:OTHER Resulting Agency Comment Specimen source: Blood Julito Cortez MD LAB BLOOD ORDERABLES [facility] See order comments or contact performing lab Unknown, [place] documented in this encounter Visit Diagnoses Not on filedocumented in this encounter
--- OUTSIDE RECORDS SUMMARY | 2023-10-19 14:48 | XMS_ITS | Encounter Summary ---
Author Organization [facility] Address [address] [facility] [address] [place] [address] Care Team Providers Care Laborer Cheesemaking Name Role Phone Unavailable Primary Care Provider Unavailabl e Encounter Details Date Type Department Care Team (Late st Contact Info) Description 08/01/2023 Orders Only [facility] [place] [address] [place] [address] Julito Cortez MD [address] [place] [address] Social History Tobacco Use Types [...] Priority Date/Time Associated Diagnosis Comments HEMATOLOGY Routine 08/01/2023 documented in this encounter Results * (ABNORMAL) HEMATOLOGY (08/01/2023) Hemoglobin 10.3(L) 14.0 - 18.0 g/dL [facility] Hemoglobin x 3 30.9(L) 42.0 - 54.0 % [facility] 08/01/2023 08/02/2023 2:4 9 PM CDT Narrative [facility] - 08/02/2023 Unless otherwise specified, test(s) performed at: [facility], [address] [place] [address], [place] [address] DEVELOPMENT CONSULTANT: Gurdeep Ricardo M.D., Ph.D For any questions, please call customer service at FREQUENCY:OTHER Resulting Agency Comment Specimen source: Blood Julito Cortez MD LAB BLOOD ORDERABLES [facility] See order comments or contact performing lab Unknown, [place] documented in this encounter Visit Diagnoses Not on filedocumented in this encounter
--- OUTSIDE RECORDS SUMMARY | 2023-10-19 14:48 | XMS_ITS | Clinical Summary ---
Author Organization [facility] Facility Address [address] [facility] [address] [place] [address] Care Team Providers Care Dozer Operator Name Role Phone No, Pcp Primary Care Provider [phone] Encounters Date Type Department Care Team Description 09/27/2023 Orders Only [facility] [address] [facility] [address] [place] [phone] Julito Cortez MD 09/26/2023 Treatment [facility] [address] [place] [address] Julito Cortez MD 09/10/2023 Orders Only [facility] [address] [facility] [address] [place] [phone] Julito Cortez MD 08/31/2023 Orders Only [facility] [address] [facility] [address] [place] [address] Julito Cortez MD 08/29/2023 Orders Only [facility] [address] [facility] [address] [place] [address] Julito Cortez MD 08/22/2023 Orders Only [facility] [address] [facility] [address] [place] [address] Julito Cortez MD 08/15/2023 Orders Only [facility] [address] [facility] [address] [place] [address] Julito Cortez MD 08/13/2023 Treatment [facility] [address] [place] [address] Julito Cortez MD 08/08/2023 Orders Only [facility] [place] [address] [place] [phone] Julito Cortez MD 08/01/2023 Orders Only [facility] [place] [address] [place] [phone] Julito Cortez MD 08/01/2023 Treatment [facility] [address] [place] [address] Mireille Tenorio, DISC PAD GRINDING MACHINE FEEDER-JAVA TECHNICAL MANAGER 07/25/2023 Orders Only [facility] [place] [address] [facility] [address] [facility] [phone] Julito Cortez MD 07/20/2023 Orders Only [facility] [place] [address] [facility] [address] [place] [phone] Julito Cortez MD from Last 3 Months Social History Tobacco Use Types Packs/Day Years Used Date Smoking Tobacco: Never Assessed Sex and Gender Information Value Date Recorded Sex Assigned at Not on file Gender Identity Not on file Sexual Orientation Not on file Plan of Treatment Health Maintenance Due Date Last Done Comments Pneumococcal Vaccine: Pediat rics (0 to 5 Years) and At-Risk Patients (6 to 64 Years) (1 of 2 - PCV) 10/14/1985 Hepatitis B Vaccine (1 of 5 - Risk Dialysis 4-dose series) 1999 Diabetes: Ophthalmology Exam 09/29/2022 Diabetes: Pedal Pulse Checked 09/29/2022 Diabetes: Sensory Foot Exam 09/29/2022 Diabetes: Visual Foot Exam 09/29/2022 Diabetes: Hemoglobin A1C 12/16/2022 09/15/2022 Influenza Vaccine (#1) 2023 Procedures Procedure Name Priority Date/Time Associated Diagnosis Comments [facility] RESULTS Routine 09/27/2023 HEMATOLOGY Routine 09/27/2023 HD KINETICS Routine 09/27/2023 POST CHEMISTRY Routine 09/27/2023 CHEMISTRY Routine 09/27/2023 CHEMISTRY Routine 09/27/2023 CHEMISTRY Routine 09/10/2023 [facility] RESULTS Routine 08/31/2023 TRACE ELEMENTS Routine 08/31/2023 HEMATOLOGY Routine 08/31/2023 CHEMISTRY Routine 08/31/2023 HD KINETICS Routine 08/31/2023 POST CHEMISTRY Routine 08/31/2023 SPECIAL CHEMISTRY Routine 08/31/2023 CHEMISTRY Routine 08/31/2023 HEMATOLOGY Routine 08/29/2023 HEMATOLOGY Routine 08/22/2023 [facility] RESULTS Routine 08/15/2023 HEMATOLOGY Routine 08/15/2023 HD KINETICS Routine 08/15/2023 POST CHEMISTRY Routine 08/15/2023 CHEMISTRY Routine 08/15/2023 CHEMISTRY Routine 08/15/2023 HEMATOLOGY Routine 08/08/2023 HEMATOLOGY Routine 08/01/2023 HEMATOLOGY Routine 07/25/2023 CHEMISTRY Routine 07/25/2023 HEMATOLOGY Routine 07/20/2023 from Last 3 Months Results * (ABNORMAL) HD KINETICS (09/27/2023) Only the most recent of3 resultswithin the time period is included. % Urea Reduction 57(L) 65 - 80 % [facility] 09/27/2023 09/28/2023 3:1 1 AM CDT Narrative Resulting Agency Comment Specimen source: Plasma Julito Cortez MD LAB BLOOD ORDERABLES Performing Organization Address [facility] Co de Phone Number [facility] See order comments or contact performing lab Unknown, [place] * (ABNORMAL) POST CHEMISTRY (09/27/2023) Only the most recent of3 resultswithin the time period is included. BUN Post Dialysis 23(H) 6 - 19 mg/dL [facility] 09/27/2023 09/28/2023 3:1 1 AM CDT Narrative [facility] - 09/28/2023 Unless otherwise specified, test(s) performed at: [facility], [address] [place] [address], [place] [address] INSIDE SALES ADMINISTRATOR: Gurdeep Ricardo M.D., Ph.D For any questions, please call customer service at FREQUENCY:MONTHLY Resulting Agency Comment Specimen source: Plasma Julito Cortez MD LAB BLOOD ORDERABLES Performing Organization Address [facility] Co de Phone Number [facility] See order comments or contact performing lab Unknown, [place] * (ABNORMAL) HEMATOLOGY (09/27/2023) Only the most recent of9 resultswithin the time period is included. Neutrophils 41.0 40.0 - 75.0 % [facility] Lymphocytes Relative 39.4 19.0 - 48.0 % [facility] Monocytes 7.9 3.0 - 10.0 % [facility] Eosinophils Relative 6.8 0.0 - 7.0 % [facility] Basophils Relative 1.5 0.0 - 1.5 % [facility] [place] 3.2 0.0 - 4.0 % [facility] WBC 2.92(L) 4.80 - 10.80 1000/mcL [facility] RBC 3.04(L) 4.70 - 6.10 mill/mcL [facility] Hematocrit 29.8(L) 42.0 - 52.0 % [facility] MCV 98 80 - 100 fl [facility] MCH 34.6(H) 27.0 - 31.0 pg [facility] MCHC 35.3 30.0 - 36.0 g/dL [facility] RDW 13.7 11.5 - 14.5 % [facility] Hemoglobin 10.5(L) 14.0 - 18.0 g/dL [facility] Hemoglobin x 3 31.5(L) 42.0 - 54.0 % [facility] 09/27/2023 09/28/2023 10: 22 AM CDT Narrative [facility] - 09/28/2023 Unless otherwise specified, test(s) performed at: [facility], [address] [place] [address], [place] [address] INSIDE SALES ADMINISTRATOR: Gurdeep Ricardo M.D., Ph.D For any questions, please call customer service at FREQUENCY:MONTHLY Resulting Agency Comment Specimen source: Blood Julito Cortez MD LAB BLOOD ORDERABLES [facility] See order comments or contact performing lab Unknown, [place] * (ABNORMAL) [facility] Chemistry (09/27/2023) Only the most recent of8 resultswithin the time period is included. BUN 53(H) 6 - 19 mg/dL [facility] Creatinine 8.33(H) 0.60 - 1.30 mg/dL [facility] BUN/Creatinine Ratio 6.4(L) 10.0 - 20.0 [facility] Sodium 136 136 - 145 mEq/L [facility] Potassium 4.8 3.5 - 5.1 mEq/L [facility] Chloride 101 96 - 108 mEq/L [facility] Bicarbonate (CO2) 29 20 - 31 mEq/L [facility] Calcium 8.5(L) 8.7 - 10.4 mg/dL [facility] Comment: Please note change in reference range. Corrected Calcium 8.7 8.7 - 10.4 mg/dL [facility] Comment: Corrected Calcium is not equivalent to measured Ionized Calcium. Phosphorus 4.4 2.6 - 4.5 mg/dL [facility] Calcium Phosphorus Product 37 0 - 54 [facility] Calcium Phosporus Product, Cor 38 0 - 54 [facility] Albumin 3.7 3.5 - 5.2 g/dL [facility] Iron 77 45 - 160 mcg/dL [facility] UIBC 151(L) 155 - 355 mcg/dL [facility] TIBC 228 185 - 515 mcg/dL [facility] Iron Saturation (TSat) 34 20 - 55 % [facility] 09/27/2023 09/28/2023 2:5 6 AM CDT Narrative [facility] - 09/28/2023 Unless otherwise specified, test(s) performed at: [facility], [address] [place] [address], [place] [address] INSIDE SALES ADMINISTRATOR: Gurdeep Ricardo M.D., Ph.D For any questions, please call customer service at FREQUENCY:MONTHLY Resulting Agency Comment Specimen source: Serum Julito Cortez MD LAB BLOOD ORDERABLES Performing Organization Address City/[facility]/ZIP Co de Phone Number [email or web address] See order comments or contact performing lab Unknown, [place] * [facility] Results (09/27/2023) Only the most recent of3 resultswithin the time period is included. [facility] Simple KT/V (HHD and NXSTAGE) 0.84 [facility] WSTDKT/V 2.5 [facility] SPKT/V DAUGIRDAS II (HHD & NXSTAGE) 0.93 [facility] 09/27/2023 09/27/2023 Shireen Ordering Provider LAB BLOOD ORDERABLE [facility] Contact Performing lab Unknown, [place] * (ABNORMAL) SPECIAL CHEMISTRY (08/31/2023) [facility] Vitamin B-12 3,903(H) 211 - 911 pg/mL [email or web address] Comment: Verified by repeat analysis. Vitamin D, 25-OH, Total 35.2 30.0 - 100.0 ng/mL [facility] Comment: Please Note: ??Effective March 06, 2021, the methodology for this test has changed to the SIEMENS ATELLICA method 08/31/2023 09/01/2023 10: 25 AM CDT Narrative Resulting Agency Comment Specimen source: Serum Julito Cortez MD LAB BLOOD BANK TEST ORDERABLES Performing Organization Address [facility] Co de Phone Number [email or web address] See order comments or contact performing lab Unknown, [place] * TRACE ELEMENTS (08/31/2023) Aluminum 5 0 - 10 mcg/L [facility] Comment: This test was developed and its performance characteristics determined by [facility]. It has not been cleared or approved by the FDA. The laboratory is regulated under CLIA as qualified to perform high complexity testing. This test is used for clinical purposes. It should not be regarded as investigational or for research. 08/31/2023 09/01/2023 10: 06 AM CDT Narrative [facility] - 09/01/2023 Unless otherwise specified, test(s) performed at: [facility], [address] [place] [address], [place] [address] INSIDE SALES ADMINISTRATOR: Gurdeep Ricardo M.D., Ph.D For any questions, please call customer service at FREQUENCY:MONTHLY Resulting Agency Comment Specimen source: Serum Julito Cortez MD LAB BLOOD ORDERABLES Performing Organization Address [facility] de Phone Number [facility] See order comments or contact performing lab Unknown, [place] from Last 3 Months Care Teams Dozer Operator Relationship Specialty Start Date End Date No, Pcp PCP - General Internal Medicine 09/10/23
--- OUTSIDE RECORDS SUMMARY | 2023-10-19 14:48 | XMS_ITS | Encounter Summary ---
Author Organization [facility] Address [address] [place] [address] Care Team Providers Care Electrical Controls Designer Name Role Phone Unavailable Primary Care Provider Unavailabl e Encounter Details Date Type Department Care Team (Late st Contact Info) Description 08/01/2023 Treatment [facility] [place] [address] [place] [address] Francisco Tenorio APRN-CHEMICAL APPLICATOR [address] [place] [address] Social History Tobacco Use Types Packs/Day Years Used Date Smoking Tobacco: Never Assessed Sex and Gender Information Value Date Recorded Sex Assigned at Not on file Gender Identity Not on file Sexual Orientation Not on file documented as of this encounter Miscellaneous Notes * Dialysis Note - Francisco Tenorio APRN-NATA - 08/01/2023 2:25 PM CDT Date: Aug 01, 2023 Patient Name: Maco Stein : 1980 Chart #: [id number] Sex: M This patient was personally seen for a complete visit as part of routine monthly dialysis care. A review of the dialysis treatment, blood pressure, estimated dry weight and recent lab values was made. These were discussed with the patient and staff as necessary. Treatment Data for 08/01/2023 started at:12:19 PM Dialyzer: 180NRe Optiflux Na: 138 mEq/L Bicarb: 31 mEq/L Dialysate: 2.0 K, 2.5 Ca, 1.0 Mg, 100 Dextrose (G2251) Dialysate/Machine Temp (prescribed): 36 C Dialysate/Machine Temp (actual): 36 C BFR (prescribed): 450 BFR (actual): 450 Prescribed time: 03:45 EDW: 94.5 kg Access Type: Pre Dialysis Vitals (for 08/01/2023 12:11 PM ) Pre BP (sit): 173/81 Pre Wt: 99.9 kg Temp: 97.5 F Post Dialysis Vitals (for 07/30/2023 4:19 PM ) Post BP (sit): 160/89 Post Wt: 97.4 kg Current Dialysis Vitals (for 08/01/2023 2:03 PM ) BP (sit): 173/88 AP(-) / MANAGER INTRANET: 195/221 Pulse: 84 Chairside data as of 08/01/2023 2:03 PM Last 3 Treatments 07/30/2023 07/27/2023 07/25/2023 EDW (kg) 94.5 94.5 94.5 Weight Pre (kg) 101.5 99.9 97.5 Weight Post (kg) 97.4 95.2 94.3 Dialytic Weight Loss (kg) -4.1 -4.7 -3.2 EDW Deviation (kg) 2.9 0.7 -0.2 BP Sit Pre 151/80 195/101 181/97 BP Sit Post 160/89 110/60 129/66 UF Rate (mL/kg/hr) 12 13 9 Prescribed BFR 450 450 450 Average Delivered BFR 460 460 450 Prescribed Treatment Time 03:45 03:45 03:45 Actual Treatment Time 03:46 03:48 03:45 Last 3 Values 07/02/2023 06/04/2023 05/03/2023 Access Flow 1791 1975 > 2000 Treatment Medication Orders Medication Sig Start Date End Date Heparin Sodium (Porcine) 1,000 Units/mL Systemic 2000 units IVP Every Treatment 05/11/2023 05/09/2024 Iron Sucrose (Venofer) 50 mg IVP 1X Week During Dialysis 07/25/2023 07/23/2024 Mircera 30 mcg IVP Every 2 weeks During Dialysis 07/25/2023 07/23/2024 Vitamin D (Calcitriol) Oral 1.0 mcg ORAL 3X Week 07/16/2023 07/14/2024 PLASTIC CNC MACHINE OPERATOR: Julito Cortez MD LOCATION: [phone] SCHEDULE: M-W-F 2nd Shift EDW: kg. DIALYZER: HD DURATION: NEEDLE SIZE: ANTICOAG: BATH: QB: ml/min QD: ml/min Subjective 07/13/23: Feels well. BP's still high. occ MORA. no SOB or CP. 06/29/23: Feels well. no SOB or CP. has appt next week [place] [facility]. 06/15/23: Feels well. no concerns. cost was a barrier to getting the Angeliquekelma, hasn't obtained it,yet. 05/01/23: Feels well. no SOB or CP. No N/v/d. Stable wt. BP's are better. 04/10/23: Feels well, 2nd day with 2 16 g needles in. no SOB or CP. 03/01/23: HD going well. but having L AVF/arm discomfort/numbness, worse on the run. [place] [facility] [place] Solorzano. fingers cool but not cold, no weakness, no pain. Interested in HHD and going to for education tomorrow. referred for txp to [facility]. 01/24/23: Feels well, got his AV[place] [facility] [place]. no arm pain. no SOB or CP. 12/25/22: BP is better after lowering his meds. still has ringing in his ears at end of every run, and leaving about EDW and no edema or SOB. Going for AVF soon. still can't do Txp eval until insurance is confirmed. 11/24/22: Feels fine today. No SOB or CP. hasn't been to [facility], yet. no N/V. 11/01/22: my second time seeing him. feels better. has had some tinnitus. BP is high but no MORA, blurry vision, CP or SOB. appetite is better. Taking losartan 50 mg/d. 10/02/22: My first time meeting him. his second time here, started here 09/29. Came from [facility] where he initiated. Feels ok today. no SOB or CP Advanced Practitioner Subjective HAIR WORKER 08/01/2023:Seen on dialysis. Doing well. No SOB, or chest pain reported. Arm access working well; no reported issues. BP slightly elevated. Leaving close to EDW. Potassium improved. Continue plan ofcare. HAIR WORKER 06/06/2023: Patient seen on dialysis. Doing well. [...] mouth twice a day 07/13/2023 RenaPlex-D (vit b,b-dn-evzv-selen-vit d3-e) 800 mcg-12.5 mg-2,000 unit tablet Take 1 tablet by mouth every evening sertraline 75mg once a day sevelamer carbonate 800 mg tablet Take 3 tablet by mouth three times a day with meals. take with all meals 03/27/2023 Allergy List Allergen Reaction Reaction Severity Onset Date LATEX Unknown~Unknown Medications reviewed with changes as indicated below. 07/13/23: Increase Coreg to 12.5 BID and [...] 30 days - 0 Continue current prescription. 11/01/22: adequate by medicare stds, increase time to 3'45''. needs an arm access Vascular Access Assessment Type of access: Fistula Surgeon - IR at [facility] Staff and patient report access is working well. Send to Surgeon for access creation. 04/10/23: using AVF d #2 today. 03/01/23: may have steal, going to see surgeon 03/06/23 01/24/23 L AVF at [facility] 01/23/23 (see OP note) 12/25/22: has [facility] appt upcoming 11/01/22: needs AVF eval at [facility] DUANE TODD 10/02/22: needs AVF eval at [facility] Anemia Assessment HEMOGLOBIN (G/DL) IN BLOOD g/dL 10.4 (07/25/23) 10.0 (07/20/23) 10.3 (07/11/23) 10.6 (07/04/23) 10.3 (06/27/23) PLATELETS 1000/mcL 96 (07/11/23) 127 (06/13/23) 131 (05/16/23) 118 (04/19/23) 105 (03/15/23) FERRITIN ng/mL 480 (04/19/23) 633 (03/15/23) 289 (01/15/23) 209 (12/13/22) 294 (11/20/22) TRANSFERRIN SAT% % 31 (07/11/23) 36 (06/13/23) 37 (05/16/23) 26 (04/19/23) 35 (03/15/23) Hemoglobin is at goal. Iron Saturation is at goal. Ferritin is at goal. Will adjust AVE and intravenous iron per protocol. 07/13/23: labs pending Nutritional and Metabolic Assessment ALBUMIN (G/DL) [...] at goal. Continue same bicarbonate in dialysate. 07/13/23: labs pending HAIR WORKER 02/08/2023: Educated on low potassium foods. Bone [...] at goal. Intact PTH is at goal. Pedodontist will adjust binders and vitamin D per protocol and continue to provide dietary education. Cardiovascular Assessment Blood pressures reviewed and are acceptable. Intradialytic weight gains are appropriate. Estimated dry weight is appropriate. Continue same cardiovascular medications. HAIR WORKER 05/11/2023 decreased to 95.5 kg MD 03/01/23: increase 96 MD 12/25/22: increase 93.5 MD 11/24/22: increase 92 MD 11/01/22: increase losartan to 100 mg q evening. next would add CCB, edw 93.5 HAIR WORKER 10/09/2022: Had been still taking hydralazine; not started losartan. Instructed to make change 10/02/22: d/c hydralazine, add Losartan 50 mg q evening. Transplant Status: Patient has been referred. [place] [facility] 04/10/23: got his LEA in Jan and was referred to [facility], still waiting to hear back 11/24/22: not a candidate until gets insurance. Resuscitation Status Discussed with patient who requested Full Code. FRANCISCO TENORIO NP [ Signed And locked electronically On 08/01/2023 at 02:28:33 PM ] Transcribed: FRANCISCO TENORIO ( 08/01/2023 ) documented in this encounter Plan of Treatment Not on file documented as of this encounter Visit Diagnoses Not on filedocumented in this encounter
--- OUTSIDE RECORDS SUMMARY | 2023-10-19 14:48 | XMS_ITS | Encounter Summary ---
Author Organization [facility] [place] [place] Address [address] [place] [address] Care Team Providers Care Materials Handler Name Role Phone Unavailable Primary Care Provider Unavailabl e Encounter Details Date Type Department Care Team (Late st Contact Info) Description 08/31/2023 Orders Only [facility] [place] [address] [place] [address] Julito Cortez MD [address] [place] [address] Social History Tobacco Use Types [...] Date/Time Associated Diagnosis Comments HD KINETICS Routine 08/31/2023 SPECIAL CHEMISTRY Routine 08/31/2023 POST CHEMISTRY Routine 08/31/2023 TRACE ELEMENTS Routine 08/31/2023 HEMATOLOGY Routine 08/31/2023 CHEMISTRY Routine 08/31/2023 CHEMISTRY Routine 08/31/2023 [facility] RESULTS Routine 08/31/2023 documented in this encounter Results * [facility] Results (08/31/2023) Simple KT/V (HHD and NXSTAGE) 0.76 [facility] SPKT/V DAUGIRDAS II (HHD & NXSTAGE) 0.81 [facility] WSTDKT/V 2.0 [facility] 08/31/2023 08/31/2023 Shireen Ordering Provider LAB BLOOD ORDERABLE [facility] Contact Performing lab Unknown, [place] * TRACE ELEMENTS (08/31/2023) Aluminum 5 0 - 10 mcg/L [facility] Comment: This test was developed and its performance characteristics determined by [facility]. It has not been cleared or approved by the FDA. The laboratory is regulated under CLIA as qualified to perform high complexity testing. This test is used for clinical purposes. It should not be regarded as investigational or for research. 08/31/2023 09/01/2023 10: 06 AM CDT Narrative [facility] - 09/01/2023 Unless otherwise specified, test(s) performed at: [facility], [address] [place] [address], [place] [address] [employer]GEANT: Gurdeep Ricardo M.D., Ph.D For any questions, please call customer service at FREQUENCY:MONTHLY Resulting Agency Comment Specimen source: Serum Julito Cortez MD LAB BLOOD ORDERABLES [facility] See order comments or contact performing lab Unknown, [place] * (ABNORMAL) HEMATOLOGY (08/31/2023) Neutrophils 68.8 40.0 - 75.0 % [facility] Lymphocytes Relative 21.9 19.0 - 48.0 % [facility] Monocytes 5.5 3.0 - 10.0 % [facility] Eosinophils Relative 1.8 0.0 - 7.0 % [facility] Basophils Relative 0.6 0.0 - 1.5 % [facility] [place] 1.4 0.0 - 4.0 % [facility] WBC 4.25(L) 4.80 - 10.80 1000/mcL [facility] RBC 3.18(L) 4.70 - 6.10 mill/mcL [facility] Hematocrit 31.8(L) 42.0 - 52.0 % [facility] MCV 100 80 - 100 fl [facility] MCH 35.2(H) 27.0 - 31.0 pg [facility] MCHC 35.1 30.0 - 36.0 g/dL [facility] RDW 15.1(H) 11.5 - 14.5 % [facility] Hemoglobin 11.2(L) 14.0 - 18.0 g/dL [facility] Hemoglobin x 3 33.6(L) 42.0 - 54.0 % [facility] Reticulocyte Hemoglobin 35.3(H) 25.4 - 31.8 pg [facility] Comment: Verified by repeat analysis. 08/31/2023 09/01/2023 11: 28 AM CDT Narrative [facility] - 09/01/2023 Unless otherwise specified, test(s) performed at: [facility], [address] [place] [id number] [employer]GEANT: Gurdeep Ricardo M.D., Ph.D For any questions, please call customer service at FREQUENCY:MONTHLY Resulting Agency Comment Specimen source: Blood Julito Cortez MD LAB BLOOD ORDERABLES Performing Organization Address [facility] de Phone Number [facility] See order comments or contact performing lab Unknown, [place] * (ABNORMAL) [facility] Chemistry (08/31/2023) PTH 102(H) 16 - 80 pg/mL [facility] 08/31/2023 09/01/2023 10: 43 AM CDT Narrative [facility] - 09/01/2023 Unless otherwise specified, test(s) performed at: [facility], [address] [place] [address], [place] [address] [employer]ICAL [employer]GEANT: Gurdeep Ricardo M.D., Ph.D For any questions, please call customer service at FREQUENCY:MONTHLY Resulting Agency Comment Specimen source: Plasma Julito Cortez MD LAB BLOOD ORDERABLES Performing Organization Address [facility]/ZIP Co de Phone Number [facility] See order comments or contact performing lab Unknown, [place] * (ABNORMAL) HD KINETICS (08/31/2023) Pathologist [facility] % Urea Reduction 53(L) 65 - 80 % [facility] 08/31/2023 09/01/2023 10: 34 AM CDT Narrative Resulting Agency Comment Specimen source: Plasma Julito Cortez MD LAB BLOOD ORDERABLES Performing Organization Address [facility] de Phone Number [facility] See order comments or contact performing lab Unknown, [place] * (ABNORMAL) POST CHEMISTRY (08/31/2023) [facility] BUN Post Dialysis 20(H) 6 - 19 mg/dL [facility] 08/31/2023 09/01/2023 10: 34 AM CDT Narrative [facility] - 09/01/2023 Unless otherwise specified, test(s) performed at: [facility], [address] [place] [address], [place] [address] [employer]ICAL [employer]GEANT: Gurdeep Ricardo M.D., Ph.D For any questions, please call customer service at FREQUENCY:MONTHLY Resulting Agency Comment Specimen source: Plasma Julito Cortez MD LAB BLOOD ORDERABLES Performing Organization Address [facility] de Phone Number [facility] See order comments or contact performing lab Unknown, [place] * (ABNORMAL) SPECIAL CHEMISTRY (08/31/2023) [facility] Vitamin B-12 3,903(H) 211 - 911 pg/mL [facility] Comment: Verified by repeat analysis. Vitamin D, 25-OH, Total 35.2 30.0 - 100.0 ng/mL [facility] Comment: Please Note: ??Effective March 06, 2021, the methodology for this test has changed to the SIEMENS ATELLICA method 08/31/2023 09/01/2023 10: 25 AM CDT Narrative Resulting Agency Comment Specimen source: Serum Julito Cortez MD LAB BLOOD BANK TEST ORDERABLES Performing Organization Address [facility]/ZIP Co de Phone Number [facility] See order comments or contact performing lab Unknown, [place] * (ABNORMAL) [facility] Chemistry (08/31/2023) BUN 43(H) 6 - 19 mg/dL [facility] Creatinine 6.80(H) 0.60 - 1.30 mg/dL [facility] BUN/Creatinine Ratio 6.3(L) 10.0 - 20.0 [facility] Sodium 131(L) 136 - 145 mEq/L [facility] Potassium 6.6(H) 3.5 - 5.1 mEq/L [facility] Comment: Verified by repeat analysis. Chloride 96 96 - 108 mEq/L [facility] Bicarbonate (CO2) 28 20 - 31 mEq/L [facility] Calcium 9.8 8.7 - 10.4 mg/dL [facility] Comment: Please note change in reference range. Corrected Calcium 9.6 8.7 - 10.4 mg/dL [facility] Comment: Corrected Calcium is not equivalent to measured Ionized Calcium. Phosphorus 4.2 2.6 - 4.5 mg/dL [facility] Calcium Phosphorus Product 41 0 - 54 [facility] Calcium Phosporus Product, Cor 40 0 - 54 [facility] Alkaline Phosphatase 92 40 - 129 U/L [facility] Albumin 4.3 3.5 - 5.2 g/dL [facility] Magnesium 2.4 1.6 - 2.6 mg/dL [facility] Ferritin 984(H) 22 - 322 ng/mL [facility] Iron 105 45 - 160 mcg/dL [facility] UIBC 142(L) 155 - 355 mcg/dL [facility] TIBC 247 185 - 515 mcg/dL [facility] Iron Saturation (TSat) 43 20 - 55 % [facility] 08/31/2023 09/01/2023 10: 25 AM CDT Narrative [facility] - 09/01/2023 Unless otherwise specified, test(s) performed at: [facility], [address] [place] [address], [place] [address] [employer]GEANT: Gurdeep Ricardo M.D., Ph.D For any questions, please call customer service at FREQUENCY:MONTHLY Resulting Agency Comment Specimen source: Serum Julito Cortez MD LAB BLOOD ORDERABLES [facility] See order comments or contact performing lab Unknown, [place] documented in this encounter Visit Diagnoses Not on filedocumented in this encounter
--- OUTSIDE RECORDS SUMMARY | 2023-10-19 14:48 | XMS_ITS | Encounter Summary ---
Author Organization [facility] Address [address] [place] [address] Care Team Providers Care Tree Scout Name Role Phone Unavailable Primary Care Provider Unavailabl e Encounter Details Date Type Department Care Team (Late st Contact Info) Description 07/13/2023 Treatment [facility] [address] [place] [address] Julito Cortez MD [address] [place] [address] Social History Tobacco Use Types Packs/Day Years Used Date Smoking Tobacco: Never Assessed Sex and Gender Information Value Date Recorded Sex Assigned at Not on file Gender Identity Not on file Sexual Orientation Not on file documented as of this encounter Miscellaneous Notes * Dialysis Note - Julito Cortez MD - 07/13/2023 2:08 PM CDT Date: July 13, 2023 Patient Name: Maco Stein : 1980 Chart #: [id number] Sex: M This patient was personally seen for a complete visit as part of routine monthly dialysis care. A review of the dialysis treatment, blood pressure, estimated dry weight and recent lab values was made. These were discussed with the patient and staff as necessary. Treatment Data for 07/13/2023 started at:12:28 PM Dialyzer: 180NRe Optiflux Na: 138 mEq/L Bicarb: 31 mEq/L Dialysate: 2.0 K, 2.5 Ca, 1.0 Mg, 100 Dextrose (G2251) Dialysate/Machine Temp (prescribed): 36 C Dialysate/Machine Temp (actual): 35.5 C BFR (prescribed): 450 BFR (actual): 450 Prescribed time: 03:45 EDW: 94.5 kg Access Type: Pre Dialysis Vitals (for 07/13/2023 12:20 PM ) Pre BP (sit): 187/90 Pre Wt: 96.6 kg Temp: 97.8 F Post Dialysis Vitals (for 07/11/2023 4:32 PM ) Post BP (sit): 173/90 Post Wt: 94 kg Current Dialysis Vitals (for 07/13/2023 2:02 PM ) BP (sit): 156/81 AP(-) / JUMP IRON MACHINE PRESSER: 206/201 Pulse: 80 Chairside data as of 07/13/2023 2:02 PM Last 3 Treatments 07/11/2023 07/09/2023 07/06/2023 EDW (kg) 94.5 94.5 94.5 Weight Pre (kg) 97.7 94.4 96.8 Weight Post (kg) 94 93.6 94.2 Dialytic Weight Loss (kg) -3.7 -0.8 -2.6 EDW Deviation (kg) -0.5 -0.9 -0.3 BP Sit Pre 188/93 195/94 186/90 BP Sit Post 173/90 169/86 167/84 UF Rate (mL/kg/hr) 10 2 7 Prescribed BFR 450 450 450 Average Delivered BFR 450 330 450 Prescribed Treatment Time 03:45 03:45 03:45 Actual Treatment Time 03:48 03:53 03:45 Last 3 Values 07/02/2023 06/04/2023 05/03/2023 Access Flow 1792 1975 > 2000 Treatment Medication Orders Medication Sig Start Date End Date Heparin Sodium (Porcine) 1,000 Units/mL Systemic 2000 units IVP Every Treatment 05/11/2023 05/09/2024 Mircera 50 mcg IVP Every 4 weeks During Dialysis 05/30/2023 05/28/2024 Vitamin D (Calcitriol) Oral 1.5 mcg ORAL 3X Week 05/11/2023 05/09/2024 DRUG ABUSE TECHNICIAN: Julito Cortez MD LOCATION: [place] [phone] SCHEDULE: M-W-F 2nd Shift EDW: kg. DIALYZER: HD DURATION: NEEDLE SIZE: ANTICOAG: BATH: QB: ml/min QD: ml/min Subjective MD 07/13/23: Feels well. BP's still high. occ MORA. no SOB or CP. 06/29/23: Feels well. no SOB or CP. has appt next week at [facility] Txp. 06/15/23: Feels well. no concerns. cost was a barrier to getting the Lokelma, hasn't obtained it,yet. 05/01/23: Feels well. no SOB or CP. No N/v/d. Stable wt. BP's are better. 04/10/23: Feels well, 2nd day with 2 16 g needles in. no SOB or CP. 03/01/23: HD going well. but having L AVF/arm discomfort/numbness, worse on the run. has appt at [facility] next with Dr. Solorzano. fingers cool but not cold, no weakness, no pain. Interested in HHD and going to for education tomorrow. referred for txp to [facility]. 01/24/23: Feels well, got his AVF at [facility] yesterday. no arm pain. no SOB or CP. 12/25/22: BP is better after lowering his meds. still has ringing in his ears at end of every run, and leaving about EDW and no edema or SOB. Going for AVF soon. still can't do Txp eval until insurance is confirmed. 11/24/22: Feels fine today. No SOB or CP. hasn't been to [facility], yet. no N/V. 11/01/22: my second time seeing him. feels better. has had some tinnitus. BP is high but no MORA, blurry vision, CP or SOB. appetite is better. Taking losartan 50 mg/d. 10/02/22: My first time meeting him. his second time here, started here 09/29. Came from [facility] where he initiated. Feels ok today. no SOB or CP Advanced Practitioner Subjective PROCESSING SPEC 06/06/2023: Patient seen on dialysis. Doing well. Denies SOB, chest pain, cramping or fevers. Leaving at EDW with recent runs. BP still elevated today. PCAD functional; no reported issues. Elevatedpotassium around 6; could be losartan 100 mg. Will try lokelma once weekly. Patient educated on potassium foods and medication consistency. Continue to challenge EDW as tolerated. PROCESSING SPEC 05/11/2023:Seen on dialysis. Overall feeling well; continues to have night sweat 1-3 times a night. He had stopped sertraline for about 3 weeks and did nit see a difference. No SOB, or chest pain reported. Arm access working well; no reported issues. BP elevated. Leaving below EDW. Will adjust today. Review of Systems None reported. Problem List [...] warm Medication List Medication Sig Start Date amlodipine 10 mg tablet Take 1 tablet by mouth every evening. take 10mg one time a day carvedilol 6.25mg take two times a day (one dose in morning second dose in evening) gabapentin 300mg once a day Lokelma (sodium zirconium cyclosilicate) 10 gram powder in packet Take 1 packet by mouth once a week as directed. Take 10 gram by mouth once weekly on Sunday06/06/2023 losartan 100 mg tablet take 100mg one time a day in the AM [facility]-D (vit b,x-wi-vrjf-selen-vit d3-e) 800 mcg-12.5 mg-2,000 unit tablet Take [...] mg/d Treatment and Adequacy Assessment BUN mg/dL 66 (06/13/23) 52 (05/16/23) 78 (04/19/23) 83 (03/15/23) 70 (02/13/23) UREA NITROGEN (MG/DL) IN SER/PLAS - POST DIALYSIS mg/dL 14 (07/11/23) 18 (06/13/23) 14 (05/16/23) 19 (04/19/23) 18 (03/15/23) URR % 73 (06/13/23) 73 (05/16/23) 76 (04/19/23) 78 (03/15/23) 77 (02/13/23) spKt/V Gotch 1.58 (06/13/23) 1.64 (05/16/23) 1.7 (04/19/23) 1.82 (03/15/23) 1.84 (02/13/23) eKdrt/V 1.36 (06/13/23) 1.41 (05/16/23) 1.46 (04/19/23) 1.57 (03/15/23) 1.58 (02/13/23) spKt/V (Daugirdas II) 1.5400 (06/13/23) 1.5700 (05/16/23) 1.6500 (04/19/23) 1.7700 (03/15/23) 1.7800 (02/13/23) Dialysis is adequate. Achieves prescribed time - Yes Achieves prescribed frequency - Yes Missed treatments in past 30 days - 0 Continue current prescription. 11/01/22: adequate by medicare stds, increase time to 3'45''. needs an arm access Vascular Access Assessment Type of access: Fistula Surgeon - IR at [facility] Staff and patient report access is working well. Send to Surgeon for access creation. 04/10/23: using AVF d #2 today. 03/01/23: may have steal, going to see surgeon 03/06/23 01/24/23 L AVF at [facility] 01/23/23 (see OP note) 12/25/22: has [facility] appt upcoming 11/01/22: needs AVF eval at [facility] 10/02/22: needs AVF eval at [facility] Anemia Assessment HEMOGLOBIN (G/DL) IN BLOOD g/dL 10.6 (07/04/23) 10.3 (06/27/23) 10.4 (06/20/23) 10.3 (06/13/23) 10.3 (06/06/23) PLATELETS 1000/mcL 127 (06/13/23) 131 (05/16/23) 118 (04/19/23) 105 (03/15/23) 103 (02/13/23) FERRITIN ng/mL 480 (04/19/23) 633 (03/15/23) 289 (01/15/23) 209 (12/13/22) 294 (11/20/22) TRANSFERRIN SAT% % 36 (06/13/23) 37 (05/16/23) 26 (04/19/23) 35 (03/15/23) 33 (02/13/23) Hemoglobin is at goal. Iron Saturation is at goal. Ferritin is at goal. Will adjust AVE and intravenous iron per protocol. 07/13/23: labs pending Nutritional and Metabolic Assessment ALBUMIN (G/DL) g/dL 4.1 (06/13/23) 4.2 (05/16/23) 4.0 (04/19/23) 4.2 (03/15/23) 3.9 (02/13/23) Sodium mEq/L 130 (06/13/23) 136 (05/16/23) 140 (04/19/23) 138 (03/15/23) 140 (02/13/23) POTASSIUM (MMOL/L) IN SER/PLAS mEq/L 5.3 (06/13/23) 5.2 (06/04/23) 6.3 (05/30/23) 6.2 (05/16/23) 5.0 (04/19/23) BICARBONATE (CO2) mEq/L 24 (06/13/23) 29 (05/16/23) 26 (04/19/23) 25 (03/15/23) 24 (02/13/23) 25 OH VITAMIN D ng/mL 28.6 (01/15/23) 26.2 (11/20/22) 12.5 (09/29/22) Albumin is at goal. Encourage high-biological value protein intake. Potassium is at goal. Encourage low potassium diet. Bicarbonate is at goal. Continue same bicarbonate in dialysate. 07/13/23: labs pending PROCESSING SPEC 02/08/2023: Educated on low potassium foods. Bone and Mineral Metabolism Assessment CALCIUM mg/dL 9.0 (06/13/23) 8.6 (05/16/23) 9.0 (04/19/23) 8.6 (03/15/23) 8.2 (02/13/23) CALCIUM (MG/DL) CORRECTED FOR ALBUMIN IN SER/PLAS mg/dL 8.9 (06/13/23) 8.4 (05/16/23) 9.0 (04/19/23) 8.4 (03/15/23) 8.3 (02/13/23) PHOSPHATE (MG/DL) IN SER/PLAS mg/dL 6.4 (06/13/23) 4.0 (05/16/23) 7.8 (04/19/23) 6.5 (03/22/23) 8.4 (03/15/23) CALCIUM PHOSPHORUS PRODUCT, COR 57 (06/13/23) 34 (05/16/23) 70 (04/19/23) 71 (03/15/23) 49 (02/13/23) IPTH pg/mL 189 (05/25/23) 758 (03/06/23) 721 (02/15/23) 1065 (01/15/23) 1218 (12/20/22) Corrected Calcium is at goal. Phosphorous is above goal. Ca X P product is at goal. Intact PTH is at goal. Ux Engineer will adjust binders and vitamin D per protocol and continue to provide dietary education. 07/13/23: labs pending Cardiovascular Assessment Blood pressures reviewed and are acceptable. Intradialytic weight gains are appropriate. Estimated dry weight is too high, will decrease. Continue same cardiovascular medications. PROCESSING SPEC 05/11/2023 decreased to 95.5 kg 03/01/23: increase 96 MD 12/25/22: increase 93.5 MD 11/24/22: increase 92 MD 11/01/22: increase losartan to 100 mg q evening. next would add CCB, edw 93.5 PROCESSING SPEC 10/09/2022: Had been still taking hydralazine; not started losartan. Instructed to make change 10/02/22: d/c hydralazine, add Losartan 50 mg q evening. Transplant Status: Patient has been referred. Center - [facility] 04/10/23: got his LEA in Jan and was referred to [facility], still waiting to hear back 11/24/22: not a candidate until gets insurance. Resuscitation Status Discussed with patient who requested Full Code. Julito Cortez MD [ Signed And locked electronically On 07/13/2023 at 02:11:28 PM ] Transcribed: Julito Cortez ( 07/13/2023 ) documented in this encounter Plan of Treatment Not on file documented as of this encounter Visit Diagnoses Not on filedocumented in this encounter
--- OUTSIDE RECORDS SUMMARY | 2023-10-19 14:48 | XMS_ITS | Encounter Summary ---
Author Organization [facility] Address [address] [place] [address] Care Team Providers Care Blueprint Cutter Name Role Phone Unavailable Primary Care Provider Unavailabl e Encounter Details Date Type Department Care Team (Late st Contact Info) Description 08/29/2023 Orders Only [facility] [place] [address] [place] [address] Julito Cortez MD [address] [place] [address] Social History Tobacco Use Types [...] Priority Date/Time Associated Diagnosis Comments HEMATOLOGY Routine 08/29/2023 documented in this encounter Results * (ABNORMAL) HEMATOLOGY (08/29/2023) Hemoglobin 9.3(L) 14.0 - 18.0 g/dL [facility] Hemoglobin x 3 27.9(L) 42.0 - 54.0 % [facility] 08/29/2023 09/01/2023 12: 05 PM CDT Narrative [facility] - 09/01/2023 Unless otherwise specified, test(s) performed at: [facility], [address] [place] [address], [place] [address] LINE COOK: Gurdeep Ricardo M.D., Ph.D For any questions, please call customer service at FREQUENCY:OTHER Resulting Agency Comment Specimen source: Blood Julito Cortez MD LAB BLOOD ORDERABLES [facility] See order comments or contact performing lab Unknown, [place] documented in this encounter Visit Diagnoses Not on filedocumented in this encounter
--- OUTSIDE RECORDS SUMMARY | 2023-10-19 14:48 | XMS_ITS | Encounter Summary ---
Author Organization [facility] [place] Address [address] [facility] [address] [place] [address] Care Team Providers Care Electrical Discharge Machine Operator Name Role Phone No, Pcp Primary Care Provider [phone] Encounter Details Date Type Department Care Team (Late st Contact Info) Description 09/27/2023 Orders Only [facility] [address] [place] [address] Julito Cortez MD [address] [place] [address] Social History Tobacco Use Types [...] Date/Time Associated Diagnosis Comments HD KINETICS Routine 09/27/2023 POST CHEMISTRY Routine 09/27/2023 HEMATOLOGY Routine 09/27/2023 CHEMISTRY Routine 09/27/2023 CHEMISTRY Routine 09/27/2023 [facility] RESULTS Routine 09/27/2023 documented in this encounter Results * [facility] Results (09/27/2023) Simple KT/V (HHD and NXSTAGE) 0.84 Knowledge Center WSTDKT/V 2.5 Knowledge Center SPKT/V DAUGIRDAS II (HHD & NXSTAGE) 0.93 [facility] Center 09/27/2023 09/27/2023 Shireen Ordering Provider LAB BLOOD ORDERABLE S [facility] Contact Performing lab Unknown, [place] * (ABNORMAL) HEMATOLOGY (09/27/2023) Neutrophils 41.0 40.0 - 75.0 % [facility] [...] 09/27/2023 09/28/2023 10: 22 AM CDT Narrative [facility] - 09/28/2023 Unless otherwise specified, test(s) performed at: [facility], [address] [place] [address], [place] [address] SECURITY OFFICER SUPERVISOR: Gurdeep Ricardo M.D., Ph.D For any questions, please call customer service at FREQUENCY:MONTHLY Resulting Agency Comment Specimen source: Blood Julito Cortez MD LAB BLOOD ORDERABLES [facility] See order comments or contact performing lab Unknown, [place] * (ABNORMAL) HD KINETICS (09/27/2023) % Urea Reduction 57(L) 65 - 80 % [facility] 09/27/2023 09/28/2023 3:1 1 AM CDT Narrative Resulting Agency Comment Specimen source: Plasma Julito Cortez MD LAB BLOOD ORDERABLES Performing Organization Address [facility]/ZIP Co de Phone Number [facility] See order comments or contact performing lab Unknown, [place] * (ABNORMAL) POST CHEMISTRY (09/27/2023) BUN Post Dialysis 23(H) 6 - 19 mg/dL [facility] 09/27/2023 09/28/2023 3:1 1 AM CDT Narrative [facility] - 09/28/2023 Unless otherwise specified, test(s) performed at: [facility], [address] [place] [address], [place] [address] SECURITY OFFICER SUPERVISOR: Gurdeep Ricardo M.D., Ph.D For any questions, please call customer service at FREQUENCY:MONTHLY Resulting Agency Comment Specimen source: Plasma Julito Cortez MD LAB BLOOD ORDERABLES Performing Organization Address [facility] de Phone Number [facility] See order comments or contact performing lab Unknown, [place] * (ABNORMAL) [facility] Chemistry (09/27/2023) BUN 53(H) 6 - 19 mg/dL [facility] [...] 09/27/2023 09/28/2023 2:5 6 AM CDT Narrative [facility] - 09/28/2023 Unless otherwise specified, test(s) performed at: [facility], [address] [place] [id number] SECURITY OFFICER SUPERVISOR: Gurdeep Ricardo M.D., Ph.D For any questions, please call customer service at FREQUENCY:MONTHLY Resulting Agency Comment Specimen source: Serum Julito Cortez MD LAB BLOOD ORDERABLES Performing Organization Address [facility] Co de Phone Number [facility] DKT Technology [facility] See order comments or contact performing lab Unknown, [place] * (ABNORMAL) [facility] Chemistry (09/27/2023) PTH 291(H) 16 - 80 pg/mL [facility] 09/27/2023 09/28/2023 3:0 3 AM CDT Narrative [facility] - 09/28/2023 Unless otherwise specified, test(s) performed at: [facility], [address] [place] [address], [place] [address] SECURITY OFFICER SUPERVISOR: Gurdeep Ricardo M.D., Ph.D For any questions, please call customer service at FREQUENCY:MONTHLY Resulting Agency Comment Specimen source: Plasma Julito Cortez MD LAB BLOOD ORDERABLES Performing Organization Address [facility]/ZIP Co de Phone Number [facility] See order comments or contact performing lab Unknown, [place] documented in this encounter Visit Diagnoses Not on filedocumented in this encounter Care Teams Electrical Discharge Machine Operator Relationship Specialty Start Date End Date No, Pcp PCP - General Internal Medicine 09/10/23 documented as of this encounter
--- OUTSIDE RECORDS SUMMARY | 2023-10-19 14:48 | XMS_ITS | Encounter Summary ---
Author Organization [facility] Address [address] [facility] [address] [place] [address] Care Team Providers Care Loss Prevention Lead Name Role Phone Unavailable Primary Care Provider Unavailabl e Encounter Details Date Type Department Care Team (Late st Contact Info) Description 08/15/2023 Orders Only [facility] [address] [place] [address] Julito Cortez MD [address] [place] [address] Social History Tobacco Use Types [...] Date/Time Associated Diagnosis Comments HD KINETICS Routine 08/15/2023 POST CHEMISTRY Routine 08/15/2023 HEMATOLOGY Routine 08/15/2023 CHEMISTRY Routine 08/15/2023 CHEMISTRY Routine 08/15/2023 [facility] RESULTS Routine 08/15/2023 documented in this encounter Results * [facility] Results (08/15/2023) eKt/V Gotch 1.40 [facility] e Center nPCR_HD 1.21 Knowledge Center WSTDKT/V 2.5 [facility] eKt/V ([place]) 1.36 Knowledge Center spKt/V Gotch 1.63 [facility] eNPCR 1.12 [facility] spKt/V (Daugirdas II) 1.57 [facility] PCR 79.69 [facility] eKdrt/V 1.40 [facility] 08/15/2023 08/15/2023 Shireen Ordering Provider LAB BLOOD ORDERABLE S [facility] Contact Performing lab Unknown, [place] * (ABNORMAL) HEMATOLOGY (08/15/2023) WBC 6.06 4.80 - 10.80 1000/mcL [facility] RBC 3.05(L) 4.70 - 6.10 mill/mcL [facility] Hematocrit 32.6(L) 42.0 - 52.0 % [facility] MCV 107(H) 80 - 100 fl [facility] MCH 34.6(H) 27.0 - 31.0 pg [facility] MCHC 32.3 30.0 - 36.0 g/dL [facility] RDW 15.6(H) 11.5 - 14.5 % [facility] Hemoglobin 10.6(L) 14.0 - 18.0 g/dL [facility] Hemoglobin x 3 31.8(L) 42.0 - 54.0 % [facility] Platelets 129(L) 130 - 400 1000/mcL [facility] 08/15/2023 08/17/2023 10: 19 AM CDT Narrative [facility] - 08/17/2023 Unless otherwise specified, test(s) performed at: [facility], [address] [place] [address], [place] [address] SURGICAL ELASTIC KNITTER HAND FRAME: Gurdeep Ricardo M.D., Ph.D For any questions, please call customer service at FREQUENCY:MONTHLY Resulting Agency Comment Specimen source: Blood Julito Cortez MD LAB BLOOD ORDERABLES [facility] See order comments or contact performing lab Unknown, [place] * HD KINETICS (08/15/2023) % Urea Reduction 73 65 - 80 % [facility] 08/15/2023 08/17/2023 8:5 1 AM CDT Narrative Resulting Agency Comment Specimen source: Plasma Julito Cortez MD LAB BLOOD ORDERABLES Performing Organization Address [facility]/ZIP Co de Phone Number [facility] See order comments or contact performing lab Unknown, [place] * POST CHEMISTRY (08/15/2023) BUN Post Dialysis 18 6 - 19 mg/dL [facility] 08/15/2023 08/17/2023 8:5 1 AM CDT Narrative [facility] - 08/17/2023 Unless otherwise specified, test(s) performed at: [facility], [address] [place] [address], [place] [address] SURGICAL ELASTIC KNITTER HAND FRAME: Gurdeep Ricardo M.D., Ph.D For any questions, please call customer service at FREQUENCY:MONTHLY Resulting Agency Comment Specimen source: Plasma Julito Cortez MD LAB BLOOD ORDERABLES Performing Organization Address [facility] Co de Phone Number [facility] See order comments or contact performing lab Unknown, [place] * (ABNORMAL) [facility] (08/15/2023) BUN 67(H) 6 - 19 mg/dL [facility] Creatinine 10.39(H) 0.60 - 1.30 mg/dL [facility] BUN/Creatinine Ratio 6.4(L) 10.0 - 20.0 [facility] Sodium 138 136 - 145 mEq/L [facility] Potassium 5.8(H) 3.5 - 5.1 mEq/L [facility] Chloride 103 96 - 108 mEq/L [facility] Bicarbonate (CO2) 23 20 - 31 mEq/L [facility] Calcium 8.8 8.7 - 10.4 mg/dL [facility] Comment: Please note change in reference range. Corrected Calcium 8.6(L) 8.7 - 10.4 mg/dL [facility] Comment: Corrected Calcium is not equivalent to measured Ionized Calcium. Phosphorus 8.7(H) 2.6 - 4.5 mg/dL [facility] Calcium Phosphorus Product 77(H) 0 - 54 [facility] Calcium Phosporus Product, Cor 75(H) 0 - 54 [facility] Alkaline Phosphatase 99 40 - 129 U/L [facility] Total Protein 7.2 6.0 - 8.5 g/dL [facility] Albumin 4.2 3.5 - 5.2 g/dL [facility] Globulin, Total 3.0 2.0 - 4.0 g/dL [facility] A/G Ratio 1.4 1.0 - 2.0 [facility] Magnesium 2.7(H) 1.6 - 2.6 mg/dL [facility] Ferritin 750(H) 22 - 322 ng/mL [facility] Iron 73 45 - 160 mcg/dL [facility] UIBC 179 155 - 355 mcg/dL [facility] TIBC 252 185 - 515 mcg/dL [facility] Iron Saturation (TSat) 29 20 - 55 % [facility] 08/15/2023 08/17/2023 11: 16 AM CDT Narrative [facility] - 08/17/2023 Unless otherwise specified, test(s) performed at: [facility], [address] [place] [address], [place] [address] SURGICAL ELASTIC KNITTER HAND FRAME: Gurdeep Ricardo M.D., Ph.D For any questions, please call customer service at FREQUENCY:MONTHLY Resulting Agency Comment Specimen source: Serum Julito Cortez MD LAB BLOOD ORDERABLES [facility] See order comments or contact performing lab Unknown, [place] * (ABNORMAL) [facility] Chemistry (08/15/2023) PTH 229(H) 16 - 80 pg/mL [facility] 08/15/2023 08/17/2023 8:2 7 AM CDT Narrative [facility] [employer] [facility] - 08/17/2023 Unless otherwise specified, test(s) performed at: [facility], [address] [place] [address], [place] [address] SURGICAL ELASTIC KNITTER HAND FRAME: Gurdeep Ricardo M.D., Ph.D For any questions, please call customer service at FREQUENCY:MONTHLY Resulting Agency Comment Specimen source: Plasma Julito Cortez MD LAB BLOOD ORDERABLES [facility] See order comments or contact performing lab Unknown, [place] documented in this encounter Visit Diagnoses Not on filedocumented in this encounter
[2023-10-19 14:50] VITALS: BP 187/89
[2023-10-19 15:02] LABS: Basophils Absolute Auto 0.02 K/uL (0.00-0.30); Basophils Percent Auto 0.3 % (0.0-3.0); Eosinophils Absolute Auto 0.02 K/uL (0.00-0.50); Eosinophils Percent Auto 0.3 % (0.0-7.0); Hemoglobin* 8.8 gm/dL (13.5-17.5); Immature Granulocytes Abs Auto 0.05 K/uL (0.00-0.30); Immature Granulocytes Pct Auto 0.7 %; Lymphocytes Percent Auto 11.6 % (20-44); Mean Corpuscular HGB Conc 34 gm/dL (32-36); Mean Corpuscular Hemoglobin 33 pg (26-34); Mean Corpuscular Volume 96 fL (80-100); Monocytes Percent Auto 8.4 % (0.0-11.0); Neutrophils Percent Auto 78.7 % (42.0-72.0); Platelet Count* 85 K/uL (140-440); RDW Coefficient of Variation % 13.4 % (11.5-15.5); Red Blood Count 2.71 m/uL (4.30-5.90); White Blood Count* 6.91 K/uL (4.50-11.00)
[2023-10-19 15:04] LABS: Slide Review Reflex No
[2023-10-19 15:04] LABS: PCR FLU A Negative PCR FLU A (Negative); PCR FLU B Negative PCR FLU B (Negative); PCR RSV Negative PCR RSV (Negative); SARS PCR* Negative SARS-CoV-2 (Negative)
[2023-10-19 15:17] LABS: Albumin* 4.3 g/dL (3.3-5.0)
[2023-10-19 15:18] LABS: Chloride* 94 mmol/L (96-114); Potassium* 5.4 mmol/L (3.6-5.1); Sodium* 130 mmol/L (135-149)
[2023-10-19 15:20] LABS: Alkaline Phosphatase* 105 U/L (40-150); Anion Gap 11 mEq/L (7-15); Aspartate Amino Transferase* 22 U/L (12-35); Bilirubin Direct* 0.4 mg/dL (0.0-0.5); Blood Urea Nitrogen* 45 mg/dL (5-24); Carbon Dioxide* 25 mmol/L (20-32); Creatinine* 8.4 mg/dL (0.5-1.5); Est. Creatinine Clearance* 11.22; Estimated Glomerular Filt Rate 7 ml/min
[2023-10-19 15:21] LABS: Alanine Aminotransferase* 19 U/L (4-50); Calcium* 8.2 mg/dL (8.4-10.6)
--- NOTE | 2023-10-19 15:24 | ED_ITS ---
HPI - General Adult General Chief complaint: Cough Stated complaint: Cough, body aches Time Seen by Provider: 10/19/23 14:22 Source: patient Mode of arrival: ambulatory Limitations: no limitations History of Present Illness HPI narrative: 43-year-old male presenting today not feeling well for 3 days. He complains of body aches, chills and cough. Cough is productive it keeps him up at night. Patient has a past medical history significant for hypertension, diabetes, end- stage renal disease, he is on at home dialysis. He also has anemia secondary to chronic disease. Related Data Home Medications ?Medication ?Instructions ?Recorded ?Confirmed clonidine HCl 0.1 mg tablet 0.1 mg PO DAILY 09/14/22 10/19/23 diltiazem HCl 240 mg 240 mg PO DAILY 09/14/22 09/14/22 capsule,extended release 24 hr hydralazine 50 mg tablet 150 mg PO BID 09/14/22 09/14/22 losartan 100 mg tablet 100 mg PO DAILY 09/14/22 10/19/23 metformin 500 mg tablet,extended 500 mg PO BID 09/14/22 09/14/22 release 24 hr amlodipine 10 mg tablet 10 mg PO DAILY 10/19/23 10/19/23 carvedilol 6.25 mg tablet 6.25 mg PO BID 10/19/23 10/19/23 cyclobenzaprine 5 mg tablet 5 mg PO 3XD PRN 10/19/23 10/19/23 gabapentin 300 mg capsule 300 mg PO DAILY PRN 10/19/23 10/19/23 nifedipine 30 mg tablet,extended 30 mg PO BID 10/19/23 10/19/23 release sertraline 25 mg tablet mg PO 10/19/23 sertraline 50 mg tablet 50 mg PO DAILY 10/19/23 10/19/23 sevelamer carbonate 800 mg tablet 2,400 mg PO 3XD 10/19/23 10/19/23 sodium zirconium cyclosilicate 10 g PO 10/19/23 gram oral powder packet (Lokelma) vit B,C-folic ac 800 mcg-zinc 12.5 1 tab PO DAILY 10/19/23 10/19/23 mg-selen-D3 2,000 unit-vit E tablet (RenaPlex-D) Previous Rx's ?Medication ?Instructions ?Recorded amoxicillin 500 mg-potassium 1 tab PO BID #10 tabs 10/19/23 clavulanate 125 mg tablet (Augmentin) azithromycin 250 mg tablet 500 mg PO DIRECTED #6 tabs 10/19/23 Allergies Allergy/AdvReac Type Severity Reaction Status Date / Time Latex, Natural Rubber Allergy Verified 10/19/23 13:36 tramadol [From Ultram] Allergy Verified 10/19/23 13:36 Review of Systems Status of ROS: Reports: 10 or more systems reviewed and unremarkable except as noted in History and below PFSH PFS Medical History Chronic kidney disease ?N18.9 - Chronic kidney disease, unspecified (ICD-10) Hypertension ?I10 - Essential (primary) hypertension (ICD-10) Type 2 diabetes mellitus ?E11.9 - Type 2 diabetes mellitus without complications (ICD-10) Social History Smoking Status: Never smoker How often do you have a drink containing alcohol: never AUDIT-C Alcohol total score: 0 Non-prescribed substance use: denies use Exam Narrative: Exam Narrative: Well-nourished well-developed patient in no acute distress. Alert and oriented. Answers questions appropriately. Mood and affect are appropriate. Thoughts are goal oriented and rational. No tangential or magical thinking noted. Patient speaks in full sentences without needing to catch his breath. Coughs frequently. HEENT: Normocephalic atraumatic. Pupils are equally round reactive to light. Extraocular muscles are intact. Conjunctivae are moist without any icterus noted. Moist mucous membranes. Posterior pharynx is normal. Neck is soft without any lymphadenopathy or thyromegaly. No masses are appreciated. Cardiovascular: Heart is regular rate and rhythm S1 and S2 are present without any murmurs. Lungs: Clear to auscultation bilaterally no wheezes rhonchi or rales are appreciated. Patient takes deep breaths without any discomfort. Abdomen: Soft and nontender nondistended with normal bowel sounds. Extremities: Bilateral lower extremities are without edema. Skin: Well perfused without any obvious rashes. Const: Vital Signs, click to edit/add: Vital Signs - 24 hr 10/19/23 13:32 10/19/23 14:50 10/19/23 16:20 Temperature 99.4 F 98.7 F Pulse Rate [Pulse Oximeter] 97 96 Respiratory Rate 20 16 Blood Pressure [Ri t Upper Arm] 211/93 H 187/89 H 197/94 H Pulse Oximetry 99 96 Oxygen Delivery Me thod Room Air Room Air Course Course ED Course: CBC shows normal white cell count, [place] 8.8[place] [address]. Triple swab is negative. Chest x-ray, read by me, shows bilateral infiltrates. Chemistries show electrolyte abnormalities consistent with end-stage renal disease. Discussed these results with the patient he says that 2 weeks ago he had labs checked and he believes everything looked much better. We discussed the potential for hospitalization and patient states that he does have a dialysis treatment do this evening. He states that he has a dialysis nurse check in with him during his treatment and he would like to go home to get that done. He says that he will bring the all the lab results with that and check in with his dialysis nurse and in the event they suggest hospitalization he will return. Given his comorbidities I did give him a dose of IM Rocephin while he was here. Vital Signs Vital signs: Initial Vital Signs Temperature 99.4 F 10/19/23 13:32 Temperature Source Temporal Artery Scan 10/19/23 13:32 Pulse Rate 97 10/19/23 13:32 Pulse Rhythm Regular 10/19/23 13:32 Respiratory Rate 20 10/19/23 13:32 Blood Pressure 211/93 H 10/19/23 13:32 Blood Pressure Mean 132 H 10/19/23 13:32 Blood Pressure Position Sitting 10/19/23 13:32 Pulse Oximetry 99 10/19/23 13:32 Oxygen Delivery Method Room Air 10/19/23 13:32 Vital Signs Temperature 99.4 F 10/19/23 13:32 Pulse Rate 97 10/19/23 13:32 Respiratory Rate 20 10/19/23 13:32 Blood Pressure 211/93 H 10/19/23 13:32 Pulse Oximetry 99 10/19/23 13:32 Oxygen Delivery Method Room Air 10/19/23 13:32 Temperature 98.7 F 10/19/23 16:20 Pulse Rate 96 10/19/23 16:20 Respiratory Rate 16 10/19/23 16:20 Blood Pressure 197/94 H 10/19/23 16:20 Pulse Oximetry 96 10/19/23 16:20 Oxygen Delivery Method Room Air 10/19/23 16:20 Medical Decision Making MDM Narrative Medical decision making narrative: 43-year-old male with diabetes, end-stage renal disease on dialysis, presenting with pneumonia. Patient is not hypoxic or tachypneic at this time. Will treat him with Augmentin and azithromycin. Patient has dialysis this evening will share all of his lab work with his dialysis team. Medical Records Medical records reviewed: Yes I reviewed the patient's medical records Lab Data Lab results reviewed: Yes I reviewed the patient's lab results Labs: Lab Results 10/19/23 10/19/23 10/19/23 Range/Units 14:23 14:45 15:59 WBC 6.91 (4.50-11.00) K/uL RBC 2.71 L (4.30-5.90) m/uL Hgb 8.8 L (13.5-17.5) gm/dL Hct 26.0 L (37.0-53.0) % MCV 96 (80-100) fL MCH 33 (26-34) pg MCHC 34 (32-36) gm/dL RDW Coeff of Carol Ann 13.4 (11.5-15.5) % Plt Count 85 L (140-440) K/uL Neut % (Auto) 78.7 H (42.0-72.0) % Lymph % (Auto) 11.6 L (20-44) % Hartley % (Auto) 8.4 (0.0-11.0) % Eos % (Auto) 0.3 (0.0-7.0) % Baso % (Auto) 0.3 (0.0-3.0) % Neut # (Auto) 5.40 (1.7-7.0) K/uL Lymph # (Auto) 0.80 L (0.90-2.90) K/uL Hartley # (Auto) 0.60 (0.00-0.90) K/UL Eos # (Auto) 0.02 (0.00-0.50) K/uL Baso # (Auto) 0.02 (0.00-0.30) K/uL Abs Immat Gran (auto) 0.05 (0.00-0.30) K/uL Imm/Tot Granulo (auto) 0.7 % Sodium 130 L (135-149) mmol/L Potassium 5.4 H (3.6-5.1) mmol/L Chloride 94 L (96-114) mmol/L Carbon Dioxide 25 (20-32) mmol/L Anion Gap 11 (7-15) mEq/L BUN 45 H (5-24) mg/dL Creatinine 8.4 H (0.5-1.5) mg/dL Estimated Creat Clear 11.22 Estimated GFR 7 ml/min Glucose 400 H* (60-115) mg/dL Calcium 8.2 L (8.4-10.6) mg/dL Total Bilirubin 1.0 (0.1-1.5) mg/dL Direct Bilirubin 0.4 (0.0-0.5) mg/dL AST 22 (12-35) U/L ALT 19 (4-50) U/L Alkaline Phosphatase 105 (40-150) U/L Total Protein 7.0 (6.0-8.3) g/dL Albumin 4.3 (3.3-5.0) g/dL SARS-CoV-2 (PCR) Negative SARS-CoV-2 (Negative) Influenza Type A (PCR) Negative PCR FLU A (Negative) Influenza Type B (PCR) Negative PCR FLU B (Negative) RSV (PCR) Negative PCR RSV (Negative) Group A Strep DNA NOT DETECTED (Not Detectd) Imaging Data Chest x-ray: Attestation: I have reviewed the pertinent imaging results. Radiologist's impression: Technique: PA and lateral views of the chest. Comparison: 09/13/2022 Findings: Low lung volumes. Normal cardiomediastinal silhouette. Moderate confluent patchy right greater than left basilar opacities. No pleural effusion or visualized pneumothorax. Impression: Moderate confluent patchy right greater than left basilar opacities are concerning for infection. Discharge Plan Discharge Clinical Impression: Pneumonia, Electrolyte abnormality, Anemia Patient Disposition: Home, Self-Care Condition: Stable Additional Instructions: Take all antibiotics as prescribed as you do have pneumonia which is an infection of the lungs. You also have significant lab abnormalities noted on today's examination including low sodium, high potassium low hemoglobin and high glucose. You should share all of this information with your dialysis team this evening. We w ill send you home with a copy of all of your lab work. Prescriptions: New amoxicillin-pot clavulanate [Augmentin] 500-125 mg tablet 1 tab PO BID Qty: 10 0RF azithromycin 250 mg tablet 500 mg PO DIRECTED Qty: 6 0RF Taper: Z-KATARINA 500 mg Q24H for 1 Day and 0 Hour 250 mg Q24H for 4 Days and 0 Hour Rx Instructions: For 250 mg dose pack: take 500 mg today (day 1), then 250 mg for 4 days (days 2-5) No Action clonidine HCl 0.1 mg tablet 0.1 mg PO DAILY diltiazem HCl 240 mg capsule,extended release 24hr 240 mg PO DAILY hydralazine 50 mg tablet 150 mg PO BID losartan 100 mg tablet 100 mg PO DAILY metformin 500 mg tablet extended release 24 hr 500 mg PO BID carvedilol 6.25 mg tablet 6.25 mg PO BID nifedipine 30 mg tablet extended release 30 mg PO BID amlodipine 10 mg tablet 10 mg PO DAILY gabapentin 300 mg capsule 300 mg PO DAILY PRN sertraline 25 mg tablet PO sertraline 50 mg tablet 50 mg PO DAILY cyclobenzaprine 5 mg tablet 5 mg PO 3XD PRN sevelamer carbonate 800 mg tablet 2,400 mg PO 3XD RenaPlex-D 800 mcg-12.5 mg -2,000 unit tablet 1 tab PO DAILY Lokelma 10 gram powder in packet PO Follow Up/Referrals: Hema Allred MD [Primary Care Provider] - Stand Alone Forms: [employer] Info Instructions
[2023-10-19 15:31] LABS: Glucose* 400 mg/dL (60-115)
[2023-10-19 16:20] VITALS: BP 197/94; PULSE 96; RESP 16; TEMP 37.1; O2SAT 96
[2023-10-19 16:26] LABS: Strep A DNA Probe* NOT DETECTED (Not Detectd)
[2023-10-19] MEDS: cefTRIAXone 1 GM VIAL IM (16:52)
[2023-10-19] MEDS: LIDOCAINE 1% 5 ml (pf) 5 ML VIAL 2.1 ML IM (16:52)
== END 2023-10-19 17:15 | disposition home or self-care (01) ==
PROVIDERS: Emergency Provider Family Medicine; PCP Internal Medicine
DX: J11.89 Influenza due to unidentified influenza virus with other manifestations (principal); D64.9 Anemia, unspecified
CPT/HCPCS: 36415; 71046; 80048; 80076; 85025; 87631; 87651; 96372; 99284; J0696

== ENCOUNTER 2023-11-07 09:28 | Outpatient (CLI) | payer MEDICAID, OTHER, SELFPAY ==
--- OUTSIDE RECORDS SUMMARY | 2023-11-07 09:34 | XMS_ITS ---
Author Name Krystian, Clinic Address [address] [place], [place] [address] Phone [phone] Organization [facility] e, NA DOCUMENT DISCLAIMER Multiple document versions may exist, please be sure you review the latest version. The information in the [facility] Continuity of Care Document represents a summary [...] August 30, 2023 August 28, 2024 Discontinued Home Medications Medication Instructions Dosage Route Start Date End Date Stat us Coreg 12.5 mg Take by mouth twice a day 1 tablet ORAL July 13, 2023 Active gabapentin 300mg Unknown December 04, 2022 Active Lokelma 10 gram Take by mouth once a week as directed 1 packet ORAL June 06, 2023 Active losartan 100 mg ORAL June 06, 2023 A ctive nifedipine 30 mg Take by mouth twice a day 1 tablet ORAL July 13, 2023 Active RenaPlex-D 800 mcg-12.5 mg-2,000 unit Take by mouth every evening 1 tablet ORAL October 04, 2022 Active sertraline 75mg every evening Unknown September 05, 2023 Active sevelamer carbonate 800 mg Take by mouth three times a day with meals 3 tablet ORAL March 27, 2023 Active VITAL SIGNS Post-Treatment Vital Signs Vital Sign Value Date / Time Blood Pressure-sitting 196/91 mmHg November 05, 2023 03:18 PM Blood Pressure-standing 123/68 mmHg [facility] 2023 03:18 PM Heart Rate 88 beats per minute October 03:18 PM Weight Vital Sign Value Date / Time Estimated Dry Weight 87 kg October 11:59 PM Pre-Dialysis 90.3 kg November 04 03:18 PM Post-Dialysis 90.5 kg November 04 03:18 PM Other Other Value Date / Time Height 175 cm August 27, 2023 12 :00 AM LAB RESULTS Hematology Result Type Result [...] 1000/mcL 130 - 400 1000/mcL - Liban 2023 UIBC (Calc) 154 mcg/dL 155 - [...] - 10.80 1000/mcL Low July 11, 2023 MCH 34.6 pg 27.0 - 31.0 pg High August 14 024 RDW 15.6 % 11.5 - 14.5 % High August 14 MCHC 32.3 g/dL 30.0 - 36.0 g/dL [...] 11.5 - 14.5 % High August 30 24 MCHC 35.1 g/dL 30.0 - 36.0 g/dL - August 31, 2023 Eosinophil 1.8 % 0.0 - 7.0 % - August 31, 2023 Monocytes 5.5 % 3.0 - 10.0 % - August 30 4 Lymphocytes 21.9 % 19.0 - 48.0 % - August 30, 024 Neutrophils 68.8 % 40.0 - 75.0 % - August 30, 024 WBC (No Diff) 4.25 1000/mcL 4.80 - [...] 22 - 322 ng/mL High August 30, Hemoglobin x 3 33.6 % 42.0 - 54.0 % Low August Retic HGB (CHr) 35.3 pg 25.4 - 31.8 pg High August 31, 2023 [place] 3.2 % 0.0 - 4.0 % - September 26, 24 Basophils 1.5 % 0.0 - 1.5 % - September 26, 24 Eosinophil 6.8 % 0.0 - 7.0 % - September 26, 24 Monocytes 7.9 % 3.0 - 10.0 % - September 26, 024 Lymphocytes 39.4 % 19.0 - 48.0 % - September 27, 2023 Neutrophils 41.0 % 40.0 - 75.0 % - September 27, 2023 RDW 13.7 % 11.5 - 14.5 % - September 27, 2023 Hemoglobin x 3 31.5 % 42.0 - 54.0 % Low September 27, 2023 Iron 77 [...] - 10.80 1000/mcL Low September 27, 2023 TIBC 228 mcg/dL 185 - 515 mcg/dL - 2023 Transferrin Sat. (Calc) 36 % 20 - 55 % - November 02 Iron 83 mcg/dL 45 - 160 mcg/dL - November 03, 2023 UIBC (Calc) 145 mcg/dL 155 - 355 mcg/dL Low 2023 Hemoglobin x 3 25.5 % 42.0 - 54.0 % Low 2023 MCH 34.1 pg 27.0 - 31.0 pg High November 03, 2023 MCHC 32.7 g/dL 30.0 - 36.0 g/dL - 2023 RDW 14.2 % 11.5 - 14.5 % - October HGB 8.5 g/dL 14.0 - 18.0 g/dL Low 2023 Eosinophil 2.7 % 0.0 - 7.0 % - November 03, 2023 Basophils 0.6 % 0.0 - 1.5 % - November 03, 2023 [place] 3.5 % 0.0 - 4.0 % - November 03, 2023 WBC (No Diff) 5.63 1000/mcL 4.80 - 10.80 1000/mcL - November 03, 2023 RBC 2.48 mill/mcL 4.70 - 6.10 mill/mcL Low November 03, 2023 HCT 25.9 % 42.0 - 52.0 % Low October Neutrophils 54.3 % 40.0 - 75.0 % - November 03, 2023 Lymphocytes 33.7 % 19.0 - 48.0 % - November 03, 2023 Monocytes 5.2 % 3.0 - 10.0 % - October Metabolic/Renal Result Type Result Value Relevant Referen ce Range Interpretation Date BUN, Post 18 mg/dL 6 - 19 mg/dL - August 14 URR, Calc 73 % 65 - 80 % - August 15, 2023 Bicarbonate 23 mEq/L 20 - 31 mEq/L - August 14, 2 024 BUN 67 mg/dL 6 - 19 mg/dL High August 14 Creatinine, Serum 10.39 mg/dL 0.60 - 1.30 mg/dL High August 15, 2023 Potassium 5.8 mEq/L 3.5 - 5.1 mEq/L High August 15, 2023 Chloride 103 mEq/L 96 - 108 mEq/L - August 14, 024 BUN/Creat Ratio 6.4 10.0 - 20.0 Low [...] 20 - 31 mEq/L - August 30, 024 Chloride 96 mEq/L 96 - 108 mEq/L - August 30, 024 Potassium 6.6 mEq/L 3.5 - 5.1 [...] 6 - 19 mg/dL High September 26, 024 BUN, Post 23 mg/dL 6 - 19 mg/dL High September 26 024 URR, Calc 57 % 65 - 80 % Low September 26 Bicarbonate 26 mEq/L 20 - 31 mEq/L - November 03, 2023 Potassium 7.2 mEq/L 3.5 - 5.1 mEq/L Critically high Oct ember 2023 Chloride 107 mEq/L 96 - 108 mEq/L - November 03, 2023 BUN/Creat Ratio 5.0 10.0 - 20.0 Low Septembe r 2023 Sodium 136 mEq/L 136 - 145 mEq/L - November 03, 2023 BUN, Post 23 mg/dL 6 - 19 mg/dL High October URR, Calc 48 % 65 - 80 % Low November 03, 2023 BUN 44 mg/dL 6 - 19 mg/dL High October Creatinine, Serum 8.84 mg/dL 0.60 - 1.30 mg/dL High November 03, 2023 HD Adequacy Result Type Result Value Relevant [...] 15, 2023 spKt/V (Daugirdas II) 1.57 No Reference Range Provided - August 15, [...] Reference Range Provided - September 27, 2023 Simple Kt/V (Home HD Only) 0.65 No Reference Range Provided Normal November 03, 2023 Bone/Mineral Result Type Result Value Relevant [...] 189 pg/mL 16 - 80 pg/mL High Apr PTH-Intact, Plasma 229 pg/mL 16 - 80 pg/mL High Jul Magnesium 2.7 mg/dL 1.6 - 2.6 mg/dL High August 15, 2023 Ca x P Product 77 0 - 54 High August 14 024 Alkaline Phosphatase 99 U/L 40 - [...] Ca x P Product 40 0 - - August 31, 2023 Calcium, Total 9.8 mg/dL 8.7 - 10.4 mg/dL - August 31, 2023 Alkaline Phosphatase 92 U/L 40 - 129 U/L - 2023 Ca x P Product 41 0 - - August 30, 2 024 Phosphorus 4.2 mg/dL 2.6 - 4.5 mg/dL - August 31, 2023 Calcium, Total 8.5 mg/dL 8.7 - 10.4 mg/dL Low Sepu st 2023 Ca x P Product 37 0 - September 27, 2023 Phosphorus 4.4 mg/dL 2.6 - 4.5 mg/dL - September Corrected Ca x P Product 38 0 - September 27, 2023 PTH-Intact, Plasma 291 pg/mL 16 - 80 pg/mL High Sep ust 2023 Corrected Ca x P Product 37 0 - - November 02, 20 24 Phosphorus 4.4 mg/dL 2.6 - 4.5 mg/dL - November 03, 2023 Ca x P Product 36 0 - November 03, 2023 Calcium, Total 8.2 mg/dL 8.7 - 10.4 mg/dL Low Oct PTH-Intact, Plasma 328 pg/mL 16 - 80 pg/mL High Sep tember 2023 Liver/Nutrition Result Type Result Value Relevant Referen ce Range Interpretation Date Total Protein 7.2 g/dL 6.0 - [...] - 5.2 g/dL - September 27, 2023 Albumin (BCG) 3.7 g/dL 3.5 - 5.2 g/dL - 2023 Immunochemistry Result Type Result Value Relevant [...] Hemodialysis Data Element Value Order Date/Time October 29, 2023 [facility]X [facility]Cartridge CAR 172 Therapy Fluid (dialysate) 2.0 K 45 Lacta te Estimated Treatment Time 180 min Volume per Treatment (Liters) 50 L Dialysate Flow Rate 16.7 L/hr Maximum Flow Fraction (%) 74% Maximum Ultrafiltration Rate 0.96 ml/Kg/ hr Blood Flow Rate (mL/min) 400 mL/min Estimated Dry Weight 87 kg Dialysis Access Hemodialysis-AV Fist amari-Standard, Left [...] Type Dialysate Dialysis Access Meds-entered by patient [facility] 2023 Weight 85.9 kg - - 0:6 1 of 5 270 CAR-172-C 2K 45 Lactate Blood Pressure-sitting 161/82 mmHg - - 2 of 5 400 Blood Pressure-standing 152/73 mmHg - - 3 of 5 400 Heart Rate 84 beats per minute - - 4 of 5 400 Temperature 97.4 deg. F - - 5 of - November 02, 2023 Weight 91.8 kg Weight 88 kg 3:25 1 of 34 200 CAR-172-C 2K 45 Lactate Not available Heparin 2000 Access Heparin 2000 Via Access Blood Pressure-sitting 157/69 mmHg Blood Pressure-sitting 15 2/69 mmHg 2 of 34 300 Blood Pressure-standing 152/65 mmHg Blood Pressure-standing 116/57 mmHg 3 of 34 400 Heart Rate 84 beats per minute Heart Rate 84 beats per minute 4 of 34 400 Temperature 98.8 deg. F Temperature 97.5 deg. F 5 of 34 40 0 - - - - 6 of 34 400 - - - - 7 of 34 400 - - - - 8 of 34 400 - - - - 9 of 34 400 - - - - 10 of 34 400 - - - - 11 of 34 360 - - - - 12 of 34 360 - - - - 13 of 34 360 - - - - 14 of 34 360 - - - - 15 of 34 360 - - - - 16 of 34 360 - - - - 17 of 34 360 - - - - 18 of 34 360 - - - - 19 of 34 360 - - - - 20 of 34 360 - - - - 21 of 34 360 - - - - 22 of 34 360 - - - - 23 of 34 360 - - - - 24 of 34 360 - - - - 25 of 34 360 - - - - 26 of 34 360 - - - - 27 of 34 360 - - - - 28 of 34 360 - - - - 29 of 34 360 - - - - 30 of 34 360 - - - - 31 of 34 360 - - - - 32 of 34 - - - - - 33 of 34 - - - - - 34 of 34 - November 05, 2023 Weight 90.3 kg Weight 90.5 kg 3:12 1 of 260 CAR-172-C 2K 45 Lactate Not available Heparin 2000 Via Access Heparin 2000 Access Blood Pressure-sitting 180/90 mmHg Blood Pressure-sitting 19 6/91 mmHg 2 of 10 400 Blood Pressure-standing 185/80 mmHg Blood Pressure-standing 123/68 mmHg 3 of 10 400 Heart Rate 82 beats per minute Heart Rate 88 beats per minute 4 of Temperature 97.6 deg. F - - 5 of - - - - 6 of - - - - 7 of - - - - 8 - - - - 9 of - - - - 10
--- OUTSIDE RECORDS SUMMARY | 2023-11-07 09:34 | XMS_ITS | Encounter Summary ---
Author Organization [facility] Address [address] 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 Name Role Phone Unavailable Primary Care Provider Unavailabl e Encounter Details Date Type Department Care Team (Late Contact Info) Description 11/01/2023 Documentation Only Transplant Program [address] [place] [address] Williams Lindquist Transplant Explosives Detonator [address] [place], [place] [address] Social History Tobacco Use Types Packs/Day Years Used Date Smoking Tobacco: Never Assessed Sex and Gender Information Value Date Recorded Sex Assigned at Not on file Gender Identity Not on file Sexual Orientation Not on file documented as of this encounter Progress Notes * Williams Lindquist Transplant Explosives Detonator - 11/01/2023 1:48 PM CDT D/A: The following secure email 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 Lopez Gar, Sorry to bother you, but I'm wondering if you have received the [facility] approved renewed ESRD Care Planon Maco Stein? He has transplant evaluation appointments scheduled and I'm afraid we'll have to cancel them if we don't have a current Care Plan in place. Thanks for your help, Williams Hui: Response pending. Brenna Lindquist Transplant Explosives Detonator, October 13:49 documented in this encounter Plan of Treatment Upcoming Encounters Date Type Department Care Team (Late st Contact Info) Description 11/20/2023 10:30 AM CDT Appointment [facility] Echo Lab [address] [place], [place] [address] Blayne Quiroz MD [address] [place], [place] [address] Scheduled Discharge Disposition: Discharged to home or self care 11/20/2023 12:00 PM CDT [facility]ointment [facility] [address] [address] Scheduled Discharge Disposition: Discharged to home or self care 11/20/2023 12:30 PM CDT Appointment [facility] CT [address] [place], [place] [address] Blayne Quiroz MD [address] [place], [place] [address] Scheduled Discharge Disposition: Discharged to home or self care 11/20/2023 1:00 PM CDT Appointment [facility] XRAY [address] [place], [place] [address] Blayne Quiroz MD [address] [place], [place] [address] Scheduled Discharge Disposition: Discharged to home or self care 11/20/2023 1:30 PM CDT Office Visit Transplant Program [address] [place], [place] [address] Neva Carbajal MBBS [address] [place], [place] [address] Jade Goode RD, LD [address] [place], [place] [address] Scheduled Discharge Disposition: Discharged to home or self care 11/20/2023 2:30 PM CDT Nurse Only Transplant Program [address] [place] [address] Neva Carbajal MBBS [address] [facility] [address] [place] [address] Rn, Cali-Pre Recipient Scheduled Discharge Disposition: Discharged to home or self care 12/18/2023 11:00 AM CDT Office Visit [facility] [address] [address] Denae Mckeon MD [address] [facility] [address] [place] [address] Scheduled Discharge Disposition: Discharged to home or self care documented as of this encounter Visit Diagnoses Not on filedocumented in this encounter
--- OUTSIDE RECORDS SUMMARY | 2023-11-07 09:34 | XMS_ITS | Referral Summary ---
Author Organization [facility] Address [address] [address] Phone Care Team Providers Care Radar Systems Engineer Name Role Phone Unavailable Primary Care Provider Unavailabl e Source Comments [employer] is fully rolled out on [employer]. Last update 07/31/08.[employer] Encounters Date Type Department Care Team Description 11/01/2023 Documentation Only Transplant Program [address] [place] [address] Williams Lindquist Transplant Pulpwood Dealer 10/03/2023 Documentation Only Transplant Program [address] [place] [address] Williams Lindquist Transplant Pulpwood Dealer 09/26/2023 Abstract Transplant Program [address] [place] [address] Williams Lindquist Transplant Pulpwood Dealer 09/03/2023 Documentation Only Transplant Program [address] [place] [address] Williams Lindquist Transplant Pulpwood Dealer from Last 3 Months Allergies Active Allergy [...] to chronic kidney disease, on chronic dialysis ([facility]) 10/13/2022 Anxiety 10/13/2022 HTN (hypertension) 09/15/2022 Diabetes mellitus ([facility]) 01/27/2002 Social History Tobacco Use Types Packs/Day [...] Info) Description 11/20/2023 10:30 AM CDT Appointment [facility] Echo Lab [address] [place] [address] Blayne Quiroz MD [address] [place], [place] [address] Scheduled Discharge Disposition: Discharged to home or self care 11/20/2023 12:00 PM CDT Appointment [facility] [address] [address] Scheduled Discharge Disposition: Discharged to home or self care 11/20/2023 12:30 PM CDT Appointment [facility] CT [address] [place], [place] [address] Blayne Quiroz MD [address] [place], [place] [address] Scheduled Discharge Disposition: Discharged to home or self care 11/20/2023 1:00 PM CDT Appointment [facility] XRAY [address] [place], [place] [address] Blayne Quiroz MD [address] [place], [place] [address] Scheduled Discharge Disposition: Discharged to home or self care 11/20/2023 1:30 PM CDT Office Visit Transplant Program [address] [place], [place] [address] Neva Carbajal MBBS [address] [place], [place] [address] Jade Goode, RD, LD [address] [place], [place] [address] Scheduled Discharge Disposition: Discharged to home or self care 11/20/2023 2:30 PM CDT Nurse Only Transplant Program [address] [place], [place] [address] Neva Carbajal MBBS [address] [place] [address] Rn, Cali-Pre Recipient Scheduled Discharge Disposition: Discharged to home or self care 12/18/2023 11:00 AM CDT Office Visit [facility] [address] [address] Denae Mckeon MD [address] [place] [address] Scheduled Discharge Disposition: Discharged to home or self care CORPORATE,KIDNEY ACQUISITION COST-CURRENT NEW Corporate Other 05/26/2020 Attn Williams Lindquist [facility] [address] [place] [address]
--- OUTSIDE RECORDS SUMMARY | 2023-11-07 09:34 | XMS_ITS | Clinical Summary ---
Author Organization [facility] Address [address] [place] [address] Phone Care Team Providers Care Poison Information Specialist Name Role Phone Unavailable Primary Care Provider Unavailabl e Source Comments [employer] is fully rolled out on [employer]. Last update 07/31/08.[employer] Allergies Active Allergy Reactions Criticality Noted Date [...] to chronic kidney disease, on chronic dialysis ([facility]) 10/13/2022 Anxiety 10/13/2022 HTN (hypertension) 09/15/2022 Diabetes mellitus ([facility]) 01/27/2002 Encounters Date Type Department Care Team Description 11/01/2023 Documentation Only Transplant Program [address] [place] [address] Williams Lindquist Transplant Jig Borer 10/03/2023 Documentation Only Transplant Program [address] [place] [address] Williams Lindquist Transplant Jig Borer 09/26/2023 Abstract Transplant Program [address] [place] [address] Williams Lindquist Transplant Jig Borer 09/03/2023 Documentation Only Transplant Program [address] [place] [address] Williams Lindquist Transplant Jig Borer from Last 3 Months Social History Tobacco [...] Info) Description 11/20/2023 10:30 AM CDT Appointment [facility] Echo Lab [address] [place] [address] Blayne Quiroz MD [address] [place], [place] [address] Scheduled Discharge Disposition: Discharged to home or self care 11/20/2023 12:00 PM CDT Appointment [facility] [address] [address] Scheduled Discharge Disposition: Discharged to home or self care 11/20/2023 12:30 PM CDT Appointment [facility] CT [address] [place], [place] [address] Blayne Quiroz MD [address] [place], [place] [address] Scheduled Discharge Disposition: Discharged to home or self care 11/20/2023 1:00 PM CDT Appointment [facility] XRAY [address] [place], [place] [address] Blayne Quiroz MD [address] [place], [place] [address] Scheduled Discharge Disposition: Discharged to home or self care 11/20/2023 1:30 PM CDT Office Visit Transplant Program [address] [place], [place] [address] Neva Carbajal MBBS [address] [place], [place] [address] Jade Goode, RD, LD [address] [place], [place] [address] Scheduled Discharge Disposition: Discharged to home or self care 11/20/2023 2:30 PM CDT Nurse Only Transplant Program [address] [place], [place] [address] Neva Carbajal MBBS [address] [place] [address] Rn, Cali-Pre Recipient Scheduled Discharge Disposition: Discharged to home or self care 12/18/2023 11:00 AM CDT Office Visit [facility] [address] [address] Denae Mckeon MD [address] [facility] [place] [address] Scheduled Discharge Disposition: Discharged to home or [...] VISIT 10/14/1997 HEALTH MAINTENANCE PROTOCOL 10/14/1998 Imm: HepB (2 of 2 - CpG 2-dose series) 12/13/2022 11/15/2022 Diabetes HGB A1C Q 3 Months (Goal <7) 09/03/2023 06/04/2023, 06/04/2023, 09/15/2022, Additional history exists Imm: COVID-19 ( season) 2023 Imm: Flu (#1) 10/28/2023 05/18/2023 Lipid Screening [...] on patient's age to complete this topic CORPORATE,KIDNEY ACQUISITION COST-CURRENT NEW Corporate Other 05/26/2020 Attn Williams Lindquist [facility] [address] [place] [address]
--- OUTSIDE RECORDS SUMMARY | 2023-11-07 09:35 | XMS_ITS ---
Author Organization [facility] Address [address] [place] [address] Phone Care Team Providers Care Information Technology Internship Name Role Phone Unavailable Primary Care Provider Unavailabl e Transplant Episode Kidney Candidate [facility] ([place], [place]) - [facility] Referred on 05/11/2023 Marked as Approved on 05/11/2023 Kidney CoordinatorChinyere Valencia RN Phone: N/A Fax: N/A Email: N/A Care Team Name Role Phone Fax Email Chinyere Valencia RN Kidney Coordinator N/A N/A N/A Julito Cortez MD Advertising Internship Referring Advertising Internship Referring Provider [phone] N/A Kidney Spec [facility] Referring Nephrology Group TXP Nephrology Group N/A N/A N/A Chinyere Valencia RN TXP Pre Coordinator N/A N/A N/A Events Pre-Transplant Referred: 05/11/2023 Committee: 07/20/2023 Appointments (10/07/2023 - 12/07/2023) When With Description 11/20/2023 Transplant - Kamala Simental Scheduled 11/20/2023 Transplant - Stacia Goode Sched ed Dialysis History Dialysis History Start End Type Comments Center Home Hemodialysis [facility] D[facility] Information Center Phone Fax Address [facility] [phone] [address] [facility] [address]
--- OUTSIDE RECORDS SUMMARY | 2023-11-07 09:35 | XMS_ITS | Clinical Summary ---
Author Organization [facility] Address [place], [place] [address] Care Team Providers Care [employer] Name Role Phone Daysi Pires Primary Care Provider Allergies Active Allergy Reactions Criticality Noted Date Comments Latex *Unknown 09/15/2022 Tramadol *Unknown 09/15/2022 Medications Medication Sig Dispensed Refills Start Date End Date Status gabapentin (NEURONTIN) 300 mg capsule Take 300 mg by mouth once daily if needed. Active calcitrioL 0.5 mcg capsuleIndications:Seco ndary hyperparathyroidism of renal origin (HC) Take one tablet by mouth on Mondays, Wednesdays, and Fridays. 30 Capsule 3 Active losartan (COZAAR) 50 mg tabletIndications:HTN (hypertension) Take 100 mg by mouth once daily. 0 3 Active hydrOXYzine HCL (ATARAX) 25 mg tabletIndications:Anxie ty Take 0.5 Tablets (12.5 mg) by mouth every 6 hours if needed for Anxiety. 30 Tablet 1 3 Active sertraline (ZOLOFT) 50 mg tabletIndications:Anxie ty Take 1 Tablet (50 mg) by mouth every morning. Take with the 25 mg tab to total 75 mg daily 30 Tablet 1 3 Active sertraline (ZOLOFT) 25 mg tabletIndications:Anxie ty Take 1 Tablet (25 mg) by mouth [...] THREE TIMES DAILY WITH MEALS 4 Active vit C/E/cuperic/zinc/lutein (PRESERVISION LUTEIN ORAL) Take 1 Capsule by mouth at bedtime. Active albuterol HFA (PRO-AIR; VENTOLIN; PROVENTIL) 90 mcg/actuation inhaler Inhale 1-2 Puffs by mouth 4 times daily if needed for Shortness Of Breath. Active insulin glargine U-300 (Toujeo SoloStar U-300 Insulin) 300 unit/mL (1.5 mL) pen Inject 30 units subcutaneous three times daily. Pt takes ~ 30 units TID depending on BS Active carvediloL (COREG) 12.5 mg tabletIndications:HTN (hypertension) Take 1 Tablet (12.5 mg) by mouth two times daily. 60 Tablet 4 Active insulin NPH-regular (NovoLIN 70-30 FlexPen U-100) 100 unit/mL (70-30) pen Inject 25-33 units subcutaneous three times daily before meals. 024 Discontin ued(*Yaritza ent states no longer taking) Calcium Acetate (PHOS-LO) 667 mg capsuleIndications:Seco ndary hyperparathyroidism of renal origin (HC) Take 1 Capsule (667 mg) by mouth three times daily with meals. 90 Capsule 3 024 Discontin ued(*Yaritza ent states no longer taking) carvediloL (COREG) 6.25 mg tabletIndications:HTN (hypertension),End stage renal disease (HC) Take 1 Tablet (6.25 mg) by mouth two times daily with meals. 180 Tablet 3 3 024 Discontin ued(*IP Discontin ued) carvediloL (COREG) 12.5 mg tabletIndications:HTN (hypertension) Take 1 Tablet (12.5 mg) by mouth two times daily. 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 10/31/2023 Type 2 diabetes mellitus wit h chronic kidney disease on chronic dialysis, with long-term current use of insulin 06/04/2023 Insulin dependent type 2 diabetes mellitus 10/13 Anemia due to chronic kidney disease, on chronic dialysis 10/13/2022 Anxiety 10/13/2022 Dialysis patient 10/13/2022 ESRD (end stage renal disease) 10/13/2022 Hyperkalemia 09/24/2022 Secondary hyperparathyroidism of renal origin End stage renal disease 09/24/2022 Overview (09/24/2022): HD started at [facility] 09/16/22 HTN (hypertension) 09/15/2022 Acute on chronic kidney failure 09/15/2022 Hypertensive emergency 09/15/2022 DIABETES 01/27/2002 Encounters Date Type Department Care Team Description 10/31/2023 11:35 AM CDT Office Visit [facility] [address] [place] [address] Ning Lopez PA Hospital F/U (Slowly feeling better ) 10/31/2023 Travel 10/26/2023 Patient Outreach [facility] [address] [place] [address] Laura Reyes, RN Primary RN Care Management (Lace 56); Hospital F/U 10/23/2023 5:44 PM CDT - 10/25/2023 5:30 AM CDT Hospital Encounter [facility] [address] [place] [address] Aiden Babin MD [facility] [place] Hospitalists Of Eyad Wallace MD [place], TAMMIE Lyles Lower extremity edema (Primary Dx); ESRD (end stage renal disease) (HC); HTN (hypertension) Discharge Disposition: Home Self Care 10/23/2023 Travel 10/19/2023 Nurse Triage [facility] [address] [place] [address] Daysi Pires PA Chest Pain from Last 3 Months Immunizations Name Administration Dates Next Due Hep B (Hepatitis B (Adult) Recombinant Adjuvanted) 03/15/2023,01/12/2023,12/13/2022,2022 Influenza RIV4 (Age 18+ Year s) PRESERV FREE 05/18/2023 Social History Tobacco Use Types Packs/Day Years Used Date Smoking Tobacco: Former Cigarettes 0.3 23 S tarted: 10/30/2000 Passive Smoke Exposure: Past Smokeless Tobacco: Never Tobacco Cessation:Counseling Given: Not Answered Alcohol Use Standard Drinks/Week Comments Not Currently 0 (1 standard drink = 0.6 oz pur e alcohol) Social Connections Answer Date Recorded Frequency of Communication with Friends and Fami ly 0 10/24/2023 Financial Resource Strain Answer Date R ecorded Difficulty of Paying Living Expenses 3 10/24/2023 Difficulty of Paying Living Expenses Not on file 10/24/2023 Food Insecurity Answer Date Recorded Worried About [...] Sign Reading Time Taken Comments Blood Pressure 178/78 10/31/2023 11:32 AM CDT Pulse 80 10/31/2023 11:32 AM CDT Temperature 36.7 ??C (98.1 ??F) 10/31/2023 11:32 AM C DT Respiratory Rate 16 10/25/2023 12:29 PM CDT Oxygen Saturation 100% 10/31/2023 11:32 AM CDT Inhaled Oxygen Concentration - - Weight 91.7 kg (202 lb 3.2 oz) 10/31/2023 11:32 AM CDT Height 175.3 cm (5' 9) 10/23/2023 5:31 PM CDT Body Mass Index 29.86 10/23/2023 5:31 PM CDT Plan of Treatment Upcoming Encounters Date Type Department Care Team (Late st Contact Info) Description 11/30/2023 2:40 PM CDT Office Visit [facility] [place] [address] Daysi Pires PA [address] [place] [address] Health Maintenance Due Date Last Done Comments Pneumococcal series for age 6-64 (1 of 2 - PCV) 10/14/1985 Tdap 10/14/1990 Depression screening for age 12+ 1991 HIV for age 15-65 10/14/1994 BMI (ht and wt on same day) for age 18+ 10/14/1997 Hepatitis C screening for ag e 18-79 10/14/1997 Tetanus booster 1999 COVID-19 vaccine series (1 - 2022-24 season) 2023 Influenza for age 9-49 10/28/2023 05/18/2023 Hepatitis B series for Diabe isela (5 of 5 - Risk Dialysis Recombivax 3-dose series) 03/15/2024 03/15/2023, 01/12/2023, 12/13/2022, Additional history exists Lipids for age 35-44 12/06/2026 12/06/2021, 07/06/2021, 04/07/2020 Procedures Procedure Name Priority Date/Time Associated Diagnosis Comments GLUCOSE METER Timed 10/25/2023 12:32 PM CDT GLUCOSE METER Timed 10/25/2023 7:46 AM CDT GLUCOSE METER Timed 10/24/2023 9:32 PM CDT GLUCOSE METER Timed 10/24/2023 6:10 PM CDT GLUCOSE METER Timed 10/24/2023 1:31 PM CDT ECHO TTE COMPLETE WO CONTRAST Routine 10/24/2023 11:01 AM CDT HBSAG (HBS) DUANE 10/24/2023 7:01 AM CDT ELECTROLYTE PANEL Early AM 10/24/2023 7:0 1 AM CDT GLUCOSE METER Timed 10/24/2023 6:32 AM CDT GLUCOSE METER Timed 10/23/2023 10:31 PM CDT US VENOUS LOWER EXTREMITY BILATERAL PORTABLE STAT 10/23/2023 9:17 PM CDT HEPATIC FUNCTION PANEL STAT 10/23/2023 6:57 PM CDT BASIC METABOLIC PANEL STAT 10/23/2023 6:57 PM CDT CBC W PLT NO DIFF STAT 10/23/2023 6:5 7 PM CDT TROPONIN T (HS) ONE TIME STAT 10/23/2023 6:57 PM CDT BEDSIDE US STUDY ARCHIVE Routine 10/23/2023 5:53 PM CDT EKG 12 LEAD STAT 10/23/2023 5:34 PM CDT LIPID PANEL Routine 12/06/2021 3:00 PM CDT from Last 3 Months or Most Recently Relevant to Health Maintenance Results * (ABNORMAL) GLUCOSE METER (10/25/2023 12:32 PM CDT) Only the most recent of7 resultswithin the time period is included. GLUCOSE METER 127(H) 65 - 100 mg/dL 10/25/2023 12:33 PM CDT [facility] [employer] [facility] Blood BLOOD SPECIMEN / Unknown 10/25/2023 12:32 PM CDT 10/25/2023 12:33 PM CDT Sean CHO CHEMISTRY [facility] [address] [place] [address], * ECHO TTE COMPLETE WO CONTRAST (10/24/2023 11:01 AM CDT) AORTIC VALVE MEAN PG 4 mmHg LVEDD 5.2 cm EJECTION FRACTION 55 - 60% Anatomical Region Laterality Modality Ultrasound 10/24/2023 9:54 AM CDT Narrative 10/24/2023 11:09 AM CDT ECHOCARDIOGRAM MACO STEIN ? Accession#: ?? [id number] : ?1980 43 years Study Date: ?? 10/24/2023 9:54:07 AM Gender: M ?BP: ? 180/83 mmHg Height: 175.00 cm ?BSA: ?2.10 m? ? ? Weight: 95.00 kg ? Tech: ? CJG ? Referring MD: EYAD WALLACE Site: ? [facility] Reading Location: [facility] IP Patient Location: Inpatient. Procedure: 2D w/ Contrast, Spectral Doppler and Color Doppler. Indication for study: New atrial fibrillation Cardiac Rhythm: Normal sinus.Study quality: Good. Final Impressions: 1. Normal LV size, normal wall thickness, normal global systolic function with an estimated EF of 55 - 60%. 2. Right ventricular cavity size is normal, global systolic RV function is normal. 3. Normal diastolic function for age. 4. No significant valve disease detected. 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 Chamber Sizes and Function Normal left ventricular size, normal wall thickness, normal global systolic function with an estimated EF of 55 - 60%. Left atrial size is normal. Left atrial pressure is normal. Right ventricular cavity size is normal, global systolic RV function is normal. RV wall thickness is normal. The right atrium is normal. Right atrial volume index is 24 ml/m? ? ?. The pulmonary artery is of normal size and origin. The sinus of Valsalva is normal sized. The ascending aorta is normal sized. Valves, RV Pressures and Diastolic Function The aortic valve is normal in structure and trileaflet, no stenosis and no regurgitation. The mitral valve is normal in structure, no mitral regurgitation. Normal diastolic function for age. The tricuspid valve is normal in structure. Tricuspid regurgitation is trace regurgitation. Unable to assess right ventricular systolic pressure. The pulmonic valve is normal. No pulmonary regurgitation. Masses, Effusion, Shunts There is no pericardial effusion. The inferior vena cava is dilated, respiratory size variation less than 50%. No left to right shunting was detected by limited color flow Doppler interrogation of the interatrial septum. MEASUREMENTS AND CALCULATIONS 2-D Measurements and LV Function: LVID (d) 5.2 cm LV FS% (2D) ?? 35 % LVID (s) 3.4 cm LVOT diameter 2.2 cm IVS (d) ??0.7 cm HR ?77 bpm LVPW (d) 1.1 cm LA Vol index ??29 ml/m2 Ao Sinus 3.2 cm RA Vol index ??24 ml/m2 Asc Ao ?? 2.9 cm Diastology: Mitral ?Tissue Doppler E Peak 1.4 m/s ??e', Septum ? 0.08 m/s A Peak 0.8 m/s ??e', Lateral ?0.12 m/s E/A ?1.7 ?E/e' Average ?? 14.27 DT ? 107 msec Aortic Valve: Vmax ? 1.5 m/s ??KEVIN (V) ?? 2.97 cm? ? ? VTI ?0.33 m ?? KEVIN (I) ?? 2.75 cm? ? ? LVOT V max 1.2 m/s ??Max PG ?9 mmHg LVOT VTI ?? 0.24 m ?? Mean PG ?? 4 mmHg SV ? 91 ml ?Dim Index 0.72 SV index ?? 43 ml/m? ? ? CO ?7.0 l/min ?CI ?3.3 l/min/m? ? ? Mitral Valve: MVA ?7.1 cm? ? ? MV P 1/2 31 msec Tricuspid Valve and estimated PA pressures: TAPSE 2.6 cm Pulmonic Valve: PV Vmax 1.1 m/s PV AT ?? 124 msec . This study was interpreted by an [facility] accredited facility. ??Final ?? Procedure Note Alex Weaver MD - 10/24/2023 ECHOCARDIOGRAM MACO STEIN : 1980 43 years Study Date: 10/24/2023 9:54:07 AM Gender: M BP: 180/83 mmHg Height: 175.00 cm BSA: 2.10 m? ? ? Weight: 95.00 kg Tech: [facility] Referring MD: EYAD WALLACE Site: [facility] Reading Location: [facility] Patient Location: Inpatient. Procedure: 2D w/ Contrast, Spectral Doppler and Color Doppler. Indication for study: New atrial fibrillation Cardiac Rhythm: Normal sinus.Study quality: Good. Final Impressions: 1. Normal LV size, normal wall thickness, normal global systolic functionwith an estimated EF of 55 - 60%. 2. Right ventricular cavity size is normal, global systolic RV functionis normal. 3. Normal diastolic function for age. 4. No significant valve disease detected. 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 Chamber Sizes and Function Normal left ventricular size, normal wall thickness, normal globalsystolic function with an estimated EF of 55 - 60%. Left atrial size isnormal. Left atrial pressure is normal. Right ventricular cavity size isnormal, global systolic RV function is normal. RV wall thickness isnormal. The right atrium is normal. Right atrial volume index is 24ml/m? ? ?. The pulmonary artery is of normal size and origin. The sinus ofValsalva is normal sized. The ascending aorta is normal sized. Valves, RV Pressures and Diastolic Function The aortic valve is normal in structure and trileaflet, no stenosis and noregurgitation. The mitral valve is normal in structure, no mitralregurgitation. Normal diastolic function for age. The tricuspid valve isnormal in structure. Tricuspid regurgitation is trace regurgitation.Unable to assess right ventricular systolic pressure. The pulmonic valveis normal. No pulmonary regurgitation. Masses, Effusion, Shunts There is no pericardial effusion. The inferior vena cava is dilated,respiratory size variation less than 50%. No left to right shunting wasdetected by limited color flow Doppler interrogation of the interatrialseptum. MEASUREMENTS AND CALCULATIONS 2-D Measurements and LV Function: LVID (d) 5.2 cm LV FS% (2D) 35 % LVID (s) 3.4 cm LVOT diameter 2.2 cm IVS (d) 0.7 cm HR 77 bpm LVPW (d) 1.1 cm LA Vol index 29 ml/m2 Ao Sinus 3.2 cm RA Vol index 24 ml/m2 Asc Ao 2.9 cm Diastology: Mitral Tissue Doppler E Peak 1.4 m/s e', Septum 0.08 m/s A Peak 0.8 m/s e', Lateral 0.12 m/s E/A 1.7 E/e' Average 14.27 DT 107 msec Aortic Valve: Vmax 1.5 m/s KEVIN (V) 2.97 cm? ? ? VTI 0.33 m KEVIN (I) 2.75 cm? ? ? LVOT V max 1.2 m/s Max PG 9 mmHg LVOT VTI 0.24 m Mean PG 4 mmHg SV 91 ml Dim Index 0.72 SV index 43 ml/m? ? ? CO 7.0 l/min CI 3.3 l/min/m? ? ? Mitral Valve: MVA 7.1 cm? ? ? MV P 1/2 31 msec Tricuspid Valve and estimated PA pressures: TAPSE 2.6 cm Pulmonic Valve: PV Vmax 1.1 m/s PV AT 124 msec . This study was interpreted by an [facility] accredited facility. Final Eyad Wallace MD ECHO ORD * HBSAG (HBS) (10/24/2023 7:01 AM CDT) HBSAG Nonreactive Nonreactive 10/24/2023 10:42 AM CDT [facility] Blood BLOOD SPECIMEN / Unknown Venipuncture / Unknown 10/24/2023 7:01 AM CDT 10/24/2023 8:32 AM CDT Rabia Husain MD SEND OUT S Performing Organization Address [facility] Co de Phone Number [facility] [address] [address], [place] * (ABNORMAL) Electrolyte panel AM (10/24/2023 7:01 AM CDT) SODIUM 134(L) 136 - 145 mmol/L 10/24/2023 8:56 AM CDT [facility] POTASSIUM 4.1 3.5 - 5.1 mmol/L 10/24/2023 8:56 AM CDT [facility] CHLORIDE 94(L) 98 - 107 mmol/L 10/24/2023 8:56 AM CDT [facility] CO2,TOTAL 28 22 - 29 mmol/L 10/24/2023 8:56 AM CDT [facility] ANION GAP 12 5 - 18 10/24/2023 8:56 AM CDT [facility] Blood BLOOD SPECIMEN / Unknown Venipuncture / Unknown 10/24/2023 7:01 AM CDT 10/24/2023 8:32 AM CDT Eyad Wallace MD CHEMISTRY Performing Organization Address [facility]/ZIP Co de Phone Number [facility] [address] [address], [place] * US VENOUS LOWER EXTREMITY BILATERAL PORTABLE (10/23/2023 9:17 PM CDT) Anatomical Region Laterality Modality LEGS, LEG L, LEG R Ultrasound 10/23/2023 9:38 PM CDT Narrative 10/23/2023 9:38 PM CDT For Patients: ??As a result of the Century Cures Act, medical imaging exams and procedure reports are released immediately into your electronic medical record. ??You may view this report before your referring provider. ??If you have questions, please contact your health care provider. Indication: Swelling Technique: DVT ultrasound of the bilateral lower extremities. Grayscale and color Doppler imaging utilized. Compression and augmentation as clinically warranted. Comparison: DVT ultrasound performed 09/15/2022 Findings: All vessels are grossly compressible without evidence of filling defect to suggest DVT. No superficial thrombosis appreciated. Soft tissues are unremarkable. Impression: No significant sonographic abnormality appreciated. Dictated by Tejas Montiel MD @ 10/23/2023 9:38:09 PM (Electronically Signed) Procedure Note Tejas Montiel MD - 10/23/2023 For Patients: As a result of the Cures Act, medical imagingexams and procedure reports are released immediately into your electronicmedical record. You may view this report before your referring provider.If you have questions, please contact your health care provider. Indication: Swelling Technique: DVT ultrasound of the bilateral lower extremities. Grayscale and colorDoppler imaging utilized. Compression and augmentation as clinicallywarranted. Comparison: DVT ultrasound performed 09/15/2022 Findings: All vessels are grossly compressible without evidence of filling defect tosuggest DVT. No superficial thrombosis appreciated. Soft tissues areunremarkable. Impression: No significant sonographic abnormality appreciated. Dictated by Tejas Montiel MD @ 10/23/2023 9:38:09 PM (Electronically Signed) Eyad Wallace MD [place] * (ABNORMAL) TROPONIN T (HS) ONE TIME (10/23/2023 6:57 PM CDT) TROPONIN T HS 44(H) 6-15 ng/L ng/L 10/23/2023 7:35 PM CDT [facility] Blood BLOOD SPECIMEN / Unknown Butterfly / Unknown 10/23/2023 6:57 PM CDT 10/23/2023 7:09 PM CDT Narrative [facility] - 10/23/2023 7:35 PM CDT hs-cTnT (Elecsys Troponin T Gen 5) concentration (s) above the sex-specific 99th percentile (16 ng/L or greater for males or 11 ng/L or greater for females) are indicative of myocardial injury. If initial hs-cTnT <=100 ng/L at presentation, a 0h/2h ABSOLUTE (ng/L) delta change (rising or falling) of >=10 ng/L suggests a significant change, whereas a 0h/2h delta change <=3 ng/L suggests no significant change. If initial hs-cTnT >100 ng/L at presentation, a 0h/2h/ RELATIVE (percent, %) delta change of 20% is suggested to distinguish patients with acute vs. chronic myocardial injury. There are multiple etiologies that can cause hs-cTnT increases above the 99th percentile (myocardial injury) other than acute myocardial infarction. Clinical context and careful clinical evaluation are critical for diagnosis and risk-stratification. The diagnosis of acute myocardial infarction requires a rising and/or falling pattern in hs-cTnT concentrations with at least one value above the sex-specific 99th percentile PLUS at least one of the following clinical criteria: ischemic symptoms, new or presumed new significant ST-T wave changes or new LBBB, development of pathological Q waves, imaging evidence of new loss of viable myocardium or new regional wall motion abnormality, or identification of intracoronary atherothrombosis or an acute angiographic culprit on coronary angiography. In appropriate low-risk patients with a non-ischemic electrocardiogram without active chest pain with a symptom onset >3-hours without recurrence, a single initial hs-cTnT<6 ng/L identifies patient with a very low risk in emergency department patient population. Aiden Babin MD CHEMISTRY [facility] [address] [place] [address], * (ABNORMAL) CBC W PLT NO DIFF (10/23/2023 6:57 PM CDT) [facility] WHITE BLOOD COUNT 6.3 4.5 - 11.0 thou/cu mm 10/23/2023 7:15 PM CDT [facility] RED BLOOD COUNT 2.63(L) 4.30 - 5.90 mil/cu mm 10/23/2023 7:15 PM CDT [facility] HEMOGLOBIN 8.7(L) 13.5 - 17.5 g/dL 10/23/2023 7:15 PM CDT [facility] HEMATOCRIT 25.0(L) 37.0 - 53.0 % 10/23/2023 7:15 PM CDT [facility] MCV 95 80 - 100 fL 10/23/2023 7:15 PM CDT [facility] MCH 33.1 26.0 - 34.0 pg 10/23/2023 7:15 PM CDT [facility] MCHC 34.8 32.0 - 36.0 g/dL 10/23/2023 7:15 PM CDT [facility] RDW 13.2 11.5 - 15.5 % 10/23/2023 7:15 PM CDT [facility] PLATELET COUNT 100(L) 140 - 440 thou/cu mm 10/23/2023 7:15 PM CDT [facility] MPV 12.0(H) 6.5 - 11.0 fL 10/23/2023 7:15 PM CDT [facility] NRBC 0.0 % 10/23/2023 7:15 PM CDT [facility] ABS NRBC 0.0 thou /cu mm 10/23/2023 7:15 PM CDT [facility] Blood BLOOD SPECIMEN / Unknown Butterfly / Unknown 10/23/2023 6:57 PM CDT 10/23/2023 7:09 PM CDT Aiden Babin MD HEMATOLOGY [facility] [address] [place] [address], * (ABNORMAL) HEPATIC FUNCTION PANEL (10/23/2023 6:57 PM CDT) ALBUMIN 3.7(L) 4.0 - 4.9 g/dL 10/23/2023 7:35 PM CDT [facility] PROTEIN,TOTAL 6.9 6.0 - 8.0 g/dL 10/23/2023 7:35 PM CDT [facility] BILIRUBIN,TOTAL 0.5 0.0 - 1.2 mg/dL 10/23/2023 7:35 PM CDT [facility] BILIRUBIN,DIRECT 0.2 0.0 - 0.2 mg/dL 10/23/2023 7:35 PM CDT [facility] BILIRUBIN,INDIRE CT 0.3 0.2 - 0.8 mg/dL 10/23/2023 7:35 PM CDT [facility] ALK PHOSPHATASE 74 40 - 129 IU/L 10/23/2023 7:35 PM CDT [facility] ALT (SGPT) 7(L) 10 - 50 IU/L 10/23/2023 7:35 PM CDT [facility] AST (SGOT) 17 10 - 50 IU/L 10/23/2023 7:35 PM CDT [facility] Blood BLOOD SPECIMEN / Unknown Butterfly / Unknown 10/23/2023 6:57 PM CDT 10/23/2023 7:09 PM CDT Aiden Babin MD CHEMISTRY [facility] [address] [place] [address], * (ABNORMAL) BASIC METABOLIC PANEL (10/23/2023 6:57 PM CDT) SODIUM 131(L) 136 - 145 mmol/L 10/23/2023 7:35 PM CDT [facility] POTASSIUM 4.1 3.5 - 5.1 mmol/L 10/23/2023 7:35 PM CDT [facility] CHLORIDE 90(L) 98 - 107 mmol/L 10/23/2023 7:35 PM CDT [facility] CO2,TOTAL 29 22 - 29 mmol/L 10/23/2023 7:35 PM CDT [facility] ANION GAP 12 5 - 18 10/23/2023 7:35 PM CDT [facility] GLUCOSE 366(H) 70 - 99 mg/dL 10/23/2023 7:35 PM CDT [facility] CALCIUM 8.7 8.6 - 10.0 mg/dL 10/23/2023 7:35 PM CDT [facility] BUN 29(H) 6 - 20 mg/dL 10/23/2023 7:35 PM CDT [facility] CREATININE 6.62(H) 0.70 - 1.20 mg/dL 10/23/2023 7:35 PM CDT [facility] BUN/CREAT RATIO 4(L) 10 - 20 7:35 PM CDT [facility] eGFR 10(L) >90 mL/min/1.7 3m2 10/23/2023 7:35 PM CDT [facility] Comment:As of 2021, eG FR is calculated by the CKD-EPI creatinine equation without race adjustment. ??eGFR can be influenced by muscle mass, exercise, and diet. ??The reported eGFR is an estimation only and is only applicable if the renal function is stable. Blood BLOOD SPECIMEN / Unknown Butterfly / Unknown 10/23/2023 6:57 PM CDT 10/23/2023 7:09 PM CDT Aiden Babin MD [facility] [address] [place] [address], * EKG 12 LEAD (10/23/2023 5:34 PM CDT) Interpretation Normal sinus rhythm Normal ECG Compared to ekg of 3 No Change BEYOND NOW Ventricular Rate 93 BPM BEYOND NOW Atrial Rate 93 BPM BEYOND NOW P-R Interval 170 ms BEYOND NOW QRS Duration 80 ms BEYOND NOW QT 362 ms BEYOND NOW QTc 450 ms BEYOND NOW P [place] 29 degrees BEYOND NOW R [place] 56 degrees BEYOND NOW T [place] 68 degrees BEYOND NOW 10/23/2023 5:34 PM CDT 10/23/2023 11:22 PM CDT Aiden Babin MD EKG ORD BEYOND NOW [place], [place] * (ABNORMAL) LIPID PANEL (12/06/2021 3:00 PM CDT) CHOLESTEROL,TOTAL 163 100 - 199 mg/dL 12/07/2021 3:15 PM CDT [facility] TRIGLYCERIDES 272(H) <150 mg/dL 12/07/2021 3:15 PM T [facility] HDL CHOLESTEROL 23(L) >40 mg/dL 3:15 PM CDT [facility] NON-HDL CHOLESTEROL 140 <145 mg/dl 12/07/2021 3:15 PM T [facility] CHOL/HDL RATIO 7.09(H) <4.50 12/07/2021 3:15 PM T [facility] LDL CHOLESTEROL 86 <=130 mg/dL 12/07/2021 3:15 PM T [facility] VLDL CHOLESTEROL 54(H) <=30 mg/dL 12/07/2021 3:15 PM T [facility] PROVIDER ORDERED STATUS RANDOM 12/07/2021 3:15 PM T [facility] Blood BLOOD SPECIMEN / Unknown 12/06/2021 3:00 PM CDT 12/07/2021 2:54 PM CDT Aidee Sher PROFESSOR OF GEOGRAPHY CHEMISTRY [facility] [address] [place] [address] from Last 3 Months or Most Recently Relevant to Health Maintenance Advance Directives Documents on File Type Date Recorded Patient Diamond 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
--- OUTSIDE RECORDS SUMMARY | 2023-11-07 09:35 | XMS_ITS | Encounter Summary ---
Author Organization [facility] [place] [place] Address [address] [facility] [address] [place] [address] Care Team Providers Care General Operations Manager Name Role Phone Unavailable Primary Care Provider Unavailabl e Encounter Details Date Type Department Care Team (Late st Contact Info) Description 08/31/2023 Orders Only [facility] [address] [place] [address] Julito Cortez MD [address] [place] [address] Social History Tobacco Use Types [...] (08/31/2023) Simple KT/V (HHD and NXSTAGE) 0.76 [facility] Center SPKT/V DAUGIRDAS II (HHD & NXSTAGE) 0.81 [facility] Center WSTDKT/V 2.0 [facility] Center 08/31/2023 08/31/2023 Shireen Ordering Provider LAB BLOOD ORDERABLE S [facility] Contact Performing lab Unknown, [place] * TRACE ELEMENTS (08/31/2023) Aluminum 5 0 - 10 mcg/L Team [facility] Comment: This test was developed and its performance characteristics determined by [facility]. It has not been cleared or approved by the FDA. The laboratory is regulated under CLIA as qualified to perform high complexity testing. This test is used for clinical purposes. It should not be regarded as investigational or for research. 08/31/2023 09/01/2023 10: 06 AM CDT Narrative [facility] - 09/01/2023 Unless otherwise specified, test(s) performed at: [facility], [address] [place] [address], [place] [address] CORPORATE COMPLIANCE MANAGER: Gurdeep Ricardo M.D., Ph.D For any questions, please call customer service at FREQUENCY:MONTHLY Resulting Agency Comment Specimen source: Serum Julito Cortez MD LAB BLOOD ORDERABLES [facility] KSN Team [facility] See order comments or contact performing [...] 08/31/2023 09/01/2023 11: 28 AM CDT Narrative [facility] - 09/01/2023 Unless otherwise specified, test(s) performed at: [facility], [address] [place] [address] CORPORATE COMPLIANCE MANAGER: Gurdeep Ricardo M.D., Ph.D For any questions, please call customer service at FREQUENCY:MONTHLY Resulting Agency Comment Specimen source: Blood Julito Cortez MD LAB BLOOD ORDERABLES Performing Organization Address [facility] de Phone Number [facility] Team [facility] See order comments or contact performing lab Unknown, [place] * (ABNORMAL) [facility] Chemistry (08/31/2023) PTH 102(H) 16 - 80 pg/mL [facility] 08/31/2023 09/01/2023 10: 43 AM CDT Narrative [facility] - 09/01/2023 Unless otherwise specified, test(s) performed at: [facility], [address] [place] [address], [place] [address] CORPORATE COMPLIANCE MANAGER: Gurdeep Ricardo M.D., Ph.D For any questions, please call customer service at FREQUENCY:MONTHLY Resulting Agency Comment Specimen source: Plasma Julito Cortez MD LAB BLOOD ORDERABLES Performing Organization Address [facility]/ZIP Co de Phone Number [facility] See order comments or contact performing lab Unknown, [place] * (ABNORMAL) HD KINETICS (08/31/2023) Pathologist [facility] % Urea Reduction 53(L) 65 - 80 % [facility] 08/31/2023 09/01/2023 10: 34 AM CDT Narrative Resulting Agency Comment Specimen source: Plasma Julito Cortez MD LAB BLOOD ORDERABLES Performing Organization Address [facility] de Phone Number [facility] See order comments or contact performing lab Unknown, [place] * (ABNORMAL) POST CHEMISTRY (08/31/2023) [facility] BUN Post Dialysis 20(H) 6 - 19 mg/dL [facility] 08/31/2023 09/01/2023 10: 34 AM CDT Narrative [facility] - 09/01/2023 Unless otherwise specified, test(s) performed at: [facility], [address] [place] [address], [place] [address] CORPORATE COMPLIANCE MANAGER: Gurdeep Ricardo M.D., Ph.D For any questions, please call customer service at FREQUENCY:MONTHLY Resulting Agency Comment Specimen source: Plasma Julito Cortez MD LAB BLOOD ORDERABLES Performing Organization Address [facility] de Phone Number [facility] Team [facility] See order comments or contact performing lab Unknown, [place] * (ABNORMAL) SPECIAL CHEMISTRY (08/31/2023) [facility] Vitamin B-12 3,903(H) 211 - 911 pg/mL [...] BLOOD BANK TEST ORDERABLES Performing Organization Address [facility]/ZIP Co de Phone Number [facility] See order comments or [...] 08/31/2023 09/01/2023 10: 25 AM CDT Narrative [facility] - 09/01/2023 Unless otherwise specified, test(s) performed at: [facility], [address] [place] [address], [place] [address] CORPORATE COMPLIANCE MANAGER: Gurdeep Ricardo M.D., Ph.D For any questions, please call customer service at FREQUENCY:MONTHLY Resulting Agency Comment Specimen source: Serum Julito Cortez MD LAB BLOOD ORDERABLES [facility] See order comments or contact performing lab Unknown, [place] documented in this encounter Visit Diagnoses Not on filedocumented in this encounter
--- OUTSIDE RECORDS SUMMARY | 2023-11-07 09:35 | XMS_ITS | Encounter Summary ---
Author Organization [facility] [place] [place] Address [address] [facility] [address] [place] [address] Care Team Providers Care Machine Maintenance Repairer Name Role Phone No, Pcp Primary Care Provider [phone] Encounter Details Date Type Department Care Team (Late st Contact Info) Description 09/10/2023 Orders Only [facility] [place] [address] [place] [address] Julito Cortez MD [address] [place] [address] Social History Tobacco Use Types [...] (09/10/2023) Potassium 6.0(H) 3.5 - 5.1 mEq/L [facility] 09/10/2023 09/11/2023 3:3 0 AM CDT Narrative [facility] - 09/11/2023 Unless otherwise specified, test(s) performed at: [facility], [address] [place] [address], [place] [address] BIOMEDICAL SERVICE ENGINEER: Gurdeep Ricardo M.D., Ph.D For any questions, please call customer service at FREQUENCY:OTHER Resulting Agency Comment Specimen source: Serum Julito Cortez MD LAB BLOOD ORDERABLES [facility] See order comments or contact performing lab Unknown, [place] documented in this encounter Visit Diagnoses Not on filedocumented in this encounter Care Teams Machine Maintenance Repairer Relationship Specialty Start Date End Date No, Pcp PCP - General Internal Medicine 09/10/23 documented as of this encounter
--- OUTSIDE RECORDS SUMMARY | 2023-11-07 09:35 | XMS_ITS | Encounter Summary ---
Author Organization [facility] Address [address] [place] [address] Phone Care Team Providers Care Foreign Exchange Position Clerk Name Role Phone Unavailable Primary Care Provider Unavailabl e Encounter Details Date Type Department Care Team (Late st Contact Info) Description 10/03/2023 Documentation Only Transplant Program [address] [place], [place] [address] Williams Lindquist Transplant Teaching Fellow [address] [place], [place] [address] Social History Tobacco Use Types Packs/Day Years Used Date Smoking Tobacco: Never Assessed Sex and Gender Information Value Date Recorded Sex Assigned at Not on file Gender Identity Not on file Sexual Orientation Not on file documented as of this encounter Progress Notes * Williams Lindquist Transplant Teaching Fellow - 10/03/2023 9:12 AM CDT D/A: Received message from patient's daughter stating his Emergency Medical Assistance insurance isin place again. This was verified by [facility] website. Patient contacted and informed someone will becontacting him to reschedule the appointments that had to be canceled in August. Also talked with himabout applying for Uncompensated Care and patient requested an email be sent to him with the numberto call. Brenna Lindquist Transplant Teaching Fellow, Tuesday October 03, 2023 09:16 documented in this encounter Plan of Treatment Upcoming Encounters Date Type Department Care Team (Late st Contact Info) Description 11/20/2023 10:30 AM CDT Appointment [facility] [address] [place] [address] Blayne Quiroz MD [address] [place], [place] [address] Scheduled Discharge Disposition: Discharged to home or self care 11/20/2023 12:00 PM CDT [facility] [address] [address] Scheduled Discharge Disposition: Discharged to home or self care 11/20/2023 12:30 PM CDT Appointment [facility] [place] [address] [place], [place] [address] Blayne Quiroz MD [address] [place] [address] Scheduled Discharge Disposition: Discharged to home or self care 11/20/2023 1:00 PM CDT Appointment [facility] [place]RAY [address] [place] [address] Blayne Quiroz MD [address] [place], [place] [address] Scheduled Discharge Disposition: Discharged to home or self care 11/20/2023 1:30 PM CDT Office Visit Transplant Program [address] [place], [place] [address] Neva Carbajal MBBS [address] [place], [place] [address] Jade Goode RD, LD [address] [place], [place] [address] Scheduled Discharge Disposition: Discharged to home or self care 11/20/2023 2:30 PM CDT Nurse Only Transplant Program [address] [place], [place] [address] Neva Carbajal MBBS [address] [facility] [address] [place] [address] RnCali-Pre Recipient Scheduled Discharge Disposition: Discharged to home or self care 12/18/2023 11:00 AM CDT Office Visit [facility] [address] [address] Denae Mckeon MD [address] [facility] [address] [place] [address] Scheduled Discharge Disposition: Discharged to home or self care documented as of this encounter Visit Diagnoses Not on filedocumented in this encounter
--- OUTSIDE RECORDS SUMMARY | 2023-11-07 09:35 | XMS_ITS | Clinical Summary ---
Author Organization [facility] Address [address] [facility] [address] [place] [address] Care Team Providers Care Corporate Tax Manager Name Role Phone No, Pcp Primary Care Provider [phone] Encounters Date Type Department Care Team Description 11/03/2023 Orders Only [facility] [place] [address] [facility] [address] [place] [phone] Julito Cortez MD 09/27/2023 Orders Only [facility] [place] [address] [facility] [address] [place] [phone] Julito Cortez MD 09/26/2023 Treatment [facility] [place] [address] [place] [address] Julito Cortez MD 09/10/2023 Orders Only [facility] [address] [facility] [address] [place] [phone] Julito Cortez MD 08/31/2023 Orders Only [facility] [address] [facility] [address] [place] [phone] Julito Cortez MD 08/29/2023 Orders Only [facility] [address] [facility] [address] [place] [address] Julito Cortez MD 08/22/2023 Orders Only [facility] [place] [address] [place] [phone] Julito Cortez MD 08/15/2023 Orders Only [facility] [address] [place] [address] Julito Cortez MD 08/13/2023 Treatment [facility] [place] [address] [place] [phone] Julito Cortez MD 08/08/2023 Orders Only [facility] [address] [place] [phone] Julito Cortez MD from Last 3 Months [...] Priority Date/Time Associated Diagnosis Comments HEMATOLOGY Routine 11/03/2023 HD KINETICS Routine 11/03/2023 POST CHEMISTRY Routine 11/03/2023 CHEMISTRY Routine 11/03/2023 CHEMISTRY Routine 11/03/2023 [facility] RESULTS Routine 09/27/2023 HEMATOLOGY [...] 08/15/2023 CHEMISTRY Routine 08/15/2023 HEMATOLOGY Routine 08/08/2023 from Last 3 Months Results * (ABNORMAL) HD KINETICS (11/03/2023) Only the most recent of4 resultswithin the time period is included. % Urea Reduction 48(L) 65 - 80 % [facility] 11/03/2023 11/06/2023 10: 47 AM CDT Narrative Resulting Agency Comment Specimen source: Plasma Julito Cortez MD LAB BLOOD ORDERABLES Performing Organization Address City/[facility]/ZIP Co de Phone Number [facility] K[facility] See order comments or contact performing lab Unknown, [place] * (ABNORMAL) POST CHEMISTRY (11/03/2023) Only the most recent of4 resultswithin the time period is included. Pathologist [facility] BUN Post Dialysis 23(H) 6 - 19 mg/dL [facility] 11/03/2023 11/06/2023 10: 47 AM CDT Narrative [facility] - 11/06/2023 Unless otherwise specified, test(s) performed at: [facility], [address] [place] [address], [place] [address] BOBCAT DRIVER/LABOR: Gurdeep Ricardo M.D., Ph.D For any questions, please call customer service at FREQUENCY:MONTHLY Resulting Agency Comment Specimen source: Plasma Julito Cortez MD LAB BLOOD ORDERABLES Performing Organization Address [facility] Co de Phone Number [facility] See order comments or contact performing lab Unknown, [place] * (ABNORMAL) HEMATOLOGY (11/03/2023) Only the most recent of7 resultswithin the time period is included. Pathologist [facility] Neutrophils 54.3 40.0 - 75.0 % [facility] Lymphocytes Relative 33.7 19.0 - 48.0 % [facility] Monocytes 5.2 3.0 - 10.0 % [facility] Eosinophils Relative 2.7 0.0 - 7.0 % [facility] Basophils Relative 0.6 0.0 - 1.5 % [facility] [place] 3.5 0.0 - 4.0 % [facility] WBC 5.63 4.80 - 10.80 1000/mcL [facility] RBC 2.48(L) 4.70 - 6.10 mill/mcL [facility] Hematocrit 25.9(L) 42.0 - 52.0 % [facility] MCV 104(H) 80 - 100 fl [facility] MCH 34.1(H) 27.0 - 31.0 pg [facility] MCHC 32.7 30.0 - 36.0 g/dL [facility] RDW 14.2 11.5 - 14.5 % [facility] Hemoglobin 8.5(L) 14.0 - 18.0 g/dL [facility] Comment: Verified by repeat analysis. Hemoglobin x 3 25.5(L) 42.0 - 54.0 % [facility] 11/03/2023 11/06/2023 10: 37 AM CDT Narrative [facility] - 11/06/2023 Unless otherwise specified, test(s) performed at: [facility], [address] [place] [address], [place] [address] BOBCAT DRIVER/LABOR: Gurdeep Ricardo M.D., Ph.D For any questions, please call customer service at FREQUENCY:MONTHLY Resulting Agency Comment Specimen source: Blood Julito Cortez MD LAB BLOOD ORDERABLES [facility] See order comments or contact performing lab Unknown, [place] * (ABNORMAL) [facility] Chemistry (11/03/2023) Only the most recent of9 resultswithin the time period is included. BUN 44(H) 6 - 19 mg/dL [facility] Creatinine 8.84(H) 0.60 - 1.30 mg/dL [facility] BUN/Creatinine Ratio 5.0(L) 10.0 - 20.0 [facility] Sodium 136 136 - 145 mEq/L [facility] Potassium 7.2(H) 3.5 - 5.1 mEq/L [facility] Comment: Verified by repeat analysis. Chloride 107 96 - 108 mEq/L [facility] Bicarbonate (CO2) 26 20 - 31 mEq/L [facility] Calcium 8.2(L) 8.7 - 10.4 mg/dL [facility] Comment: Please note change in reference range. Corrected Calcium 8.4(L) 8.7 - 10.4 mg/dL [facility] Comment: Corrected Calcium is not equivalent to measured Ionized Calcium. Phosphorus 4.4 2.6 - 4.5 mg/dL [facility] Calcium Phosphorus Product 36 0 - 54 [facility] Calcium Phosporus Product, Cor 37 0 - 54 [facility] Albumin 3.7 3.5 - 5.2 g/dL [facility] Iron 83 45 - 160 mcg/dL [facility] UIBC 145(L) 155 - 355 mcg/dL [facility] TIBC 228 185 - 515 mcg/dL [facility] Iron Saturation (TSat) 36 20 - 55 % [facility] 11/03/2023 11/06/2023 10: 28 AM CDT Narrative [facility] - 11/06/2023 Unless otherwise specified, test(s) performed at: [facility], [address] [place] [address], [place] [address] BOBCAT DRIVER/LABOR: Gurdeep Ricardo M.D., Ph.D For any questions, please call customer service at FREQUENCY:MONTHLY Resulting Agency Comment Specimen source: Serum Julito Cortez MD LAB BLOOD ORDERABLES Performing Organization Address City/[facility]/ZIP Co de Phone Number [facility] See order comments or contact performing lab Unknown, [place] * [facility] Results (09/27/2023) Only the most recent of3 resultswithin the time period is included. Pathologist [facility] Simple KT/V (HHD and NXSTAGE) 0.84 [facility] WSTDKT/V 2.5 [facility] SPKT/V DAUGIRDAS II (HHD & NXSTAGE) 0.93 [facility] 09/27/2023 09/27/2023 Shireen Ordering Provider LAB BLOOD ORDERABLE S Performing Organization Address [facility] Co de Phone Number [facility] Contact Performing lab Unknown, [place] * (ABNORMAL) SPECIAL CHEMISTRY (08/31/2023) [facility] Vitamin B-12 3,903(H) 211 - 911 pg/mL [facility] Comment: Verified by repeat analysis. Vitamin D, 25-OH, Total 35.2 30.0 - 100.0 ng/mL [facility] Comment: Please Note: ??Effective March 06, 2021, the methodology for this test has changed to the SIEMENS ATELLICA method 08/31/2023 09/01/2023 10: 25 AM CDT Narrative Resulting Agency Comment Specimen source: Serum Julito Cortez MD LAB BLOOD BANK TEST ORDERABLES Performing Organization Address City/[facility]/ZIP Co de Phone Number [facility] See order comments or contact performing lab Unknown, [place] * TRACE ELEMENTS (08/31/2023) Aluminum 5 0 - 10 mcg/L [facility] Comment: This test was developed and its performance characteristics determined by [facility]. It has not been cleared or approved by the FDA. The laboratory is regulated under CLIA as qualified to perform high complexity testing. This test is used for clinical purposes. It should not be regarded as investigational or for research. 08/31/2023 09/01/2023 10: 06 AM CDT Narrative [facility] - 09/01/2023 Unless otherwise specified, test(s) performed at: [facility], [address] [place] [address], [place] [address] BOBCAT DRIVER/LABOR: Gurdeep Ricardo M.D., Ph.D For any questions, please call customer service at FREQUENCY:MONTHLY Resulting Agency Comment Specimen source: Serum Julito Cortez MD LAB BLOOD ORDERABLES [facility] See order comments or contact performing lab Unknown, [place] from Last 3 Months Care Teams Corporate Tax Manager Relationship Specialty Start Date End Date No, Pcp PCP - General Internal Medicine 09/10/23
--- OUTSIDE RECORDS SUMMARY | 2023-11-07 09:35 | XMS_ITS | Encounter Summary ---
Author Organization [facility] Address [address] [place] [address] Phone Care Team Providers Care Medical Records Specialist Name Role Phone Unavailable Primary Care Provider Unavailabl e Encounter Details Date Type Department Care Team (Late st Contact Info) Description 09/26/2023 Abstract Transplant Program [address] [place], [place] [phone] Williams Lindquist, Transplant Gas [employer]ch [employer]ier [address] [place], [place] [address] Social History Tobacco Use Types Packs/Day Years [...] [facility] [address] [place] [address] Blayne Quiroz MD [address] [place], [place] [address] Scheduled Discharge Disposition: Discharged to home or self care 11/20/2023 12:00 PM CDT Appointment [facility] Cardiology Clinic [address] [id number] Scheduled Discharge Disposition: Discharged to home or self care 11/20/2023 12:30 PM CDT Appointment [facility] [address] [place], [place] [address] Blayne Quiroz MD [address] [facility] [address] [place] [address] Scheduled Discharge Disposition: Discharged to home or self care 11/20/2023 1:00 PM CDT Appointment [facility] [address] [place] [address] Blayne Quiroz MD [address] [facility] [address] [place], [place] [address] Scheduled Discharge Disposition: Discharged to home or self care 11/20/2023 1:30 PM CDT Office Visit Transplant Program [address] [place], [place] [address] Neva Carbajal MBBS [address] [facility] [address] [place], [place] [address] Jade Goode RD, LD [address] [facility] [address] [place], [place] [address] Scheduled Discharge Disposition: Discharged to home or self care 11/20/2023 2:30 PM CDT Nurse Only Transplant Program [address] [place] [address] Neva Carbajal MBBS [address] [facility] [address] [place], [place] [address] Rn, Cali-Pre Recipient Scheduled Discharge Disposition: Discharged to home or self care 12/18/2023 11:00 AM CDT Office Visit [facility] Cardiology Clinic [address] [address] Denae Mckeon MD [address] [place], [place] [address] Scheduled Discharge Disposition: Discharged to home or self care documented as of this encounter Visit Diagnoses Not on filedocumented in this encounter
--- OUTSIDE RECORDS SUMMARY | 2023-11-07 09:35 | XMS_ITS | Encounter Summary ---
Author Organization [facility] Address [address] [place] [address] Care Team Providers Care Coal Digger Name Role Phone Unavailable Primary Care Provider Unavailabl e Encounter Details Date Type Department Care Team (Late st Contact Info) Description 08/29/2023 Orders Only [facility] [address] [place] [address] Julito Cortez MD [address] [place] [address] Social History Tobacco Use Types [...] (08/29/2023) Hemoglobin 9.3(L) 14.0 - 18.0 g/dL [facility] Hemoglobin x 3 27.9(L) 42.0 - 54.0 % [facility] 08/29/2023 09/01/2023 12: 05 PM CDT Narrative [facility] - 09/01/2023 Unless otherwise specified, test(s) performed at: [facility] [address] [place] [address], [place] [address] CLINICAL NURSE: Gurdeep Ricardo M.D., Ph.D For any questions, please call customer service at FREQUENCY:OTHER Resulting Agency Comment Specimen source: Blood Julito Cortez MD LAB BLOOD ORDERABLES [facility] See order comments or contact performing lab Unknown, [place] documented in this encounter Visit Diagnoses Not on filedocumented in this encounter
--- OUTSIDE RECORDS SUMMARY | 2023-11-07 09:35 | XMS_ITS | Encounter Summary ---
Author Organization [facility] Address [address] [place] [address] Care Team Providers Care Small Electric Engine Technician Name Role Phone Unavailable Primary Care Provider Unavailabl e Encounter Details Date Type Department Care Team (Late st Contact Info) Description 08/22/2023 Orders Only [facility] [address] [place] [address] Julito Cortez MD [address] [place] [address] Social History Tobacco Use Types [...] (08/22/2023) Hemoglobin 10.1(L) 14.0 - 18.0 g/dL [facility] Hemoglobin x 3 30.3(L) 42.0 - 54.0 % [facility] 08/22/2023 08/23/2023 4:4 8 AM CDT Narrative [facility] - 08/23/2023 Unless otherwise specified, test(s) performed at: [facility], [address] [place] [address], [place] [address] PREPRINT ANALYST: Gurdeep Ricardo M.D., Ph.D For any questions, please call customer service at FREQUENCY:OTHER Resulting Agency Comment Specimen source: Blood Julito Cortez MD LAB BLOOD ORDERABLES [facility] See order comments or contact performing lab Unknown, [place] documented in this encounter Visit Diagnoses Not on filedocumented in this encounter
--- OUTSIDE RECORDS SUMMARY | 2023-11-07 09:35 | XMS_ITS | Encounter Summary ---
Author Organization [facility] Address [address] [place] [address] Care Team Providers Care Electronics Warfare Technician Name Role Phone Unavailable Primary Care Provider Unavailabl e Encounter Details Date Type Department Care Team (Late st Contact Info) Description 08/13/2023 Treatment [facility] [place] [address] [place] [address] Julito Cortez MD [address] [facility] [address] [address] [place] [address] Social History Tobacco Use Types [...] Name: Maco Stein : 1980 Chart #: [id number] Sex: M This patient was personally seen [...] PM ) BP (sit): 188/99 AP(-) / IMMUNOLOGY TEACHER: 188/204 Pulse: 78 Chairside data as of [...] 06/04/2023 Access Flow > 1999 [id number] 1974 ANESTHESIOLOGY TEACHER: Julito Cortez MD LOCATION: [phone] SCHEDULE: M-W- 2nd Shift EDW: kg. DIALYZER: [...] or CP. has appt next week at [facility] Txp. 06/15/23: Feels well. no concerns. cost was a barrier to getting the Lokelma, hasn't obtained it,yet. 05/01/23: Feels well. no SOB or CP. No N/v/d. Stable wt. BP's are better. 04/10/23: Feels well, 2nd day with 2 16 g needles in. no SOB or CP. 03/01/23: HD going well. but having L AVF/arm discomfort/numbness, worse on the run. has appt at [facility] next Tu with Dr. Solorzano. fingers cool but not cold, no weakness, no pain. Interested in HHD and going to for education tomorrow. referred for txp to [facility]. 01/24/23: Feels well, got his AVF at [facility] yesterday. no arm pain. no SOB or CP. 12/25/22: BP is better after lowering his meds. still has ringing in his ears at end of every run, and leaving about EDW and no edema or SOB. Going for AVF soon. still can't do Txp eval until insurance is confirmed. 11/24/22: Feels fine today. No SOB or CP. hasn't been to [facility], yet. no N/V. 11/01/22: my second time seeing him. feels better. has had some tinnitus. BP is high but no MORA, blurry vision, CP or SOB. appetite is better. Taking losartan 50 mg/d. 10/02/22: My first time meeting him. his second time here, started here 09/29. Came from [facility] where he initiated. Feels ok today. no SOB or CP Advanced Practitioner Subjective CERTIFIED REGISTERED LOCKSMITH 08/01/2023:Seen on dialysis. Doing well. No SOB, or chest pain reported. Arm access working well; no reported issues. BP slightly elevated. Leaving close to EDW. Potassium improved. Continue plan ofcare. CERTIFIED REGISTERED LOCKSMITH 06/06/2023: Patient seen on dialysis. Doing well. [...] mouth twice a day 07/13/2023 [facility]-D (vit b,h-zd-oktw-selen-vit d3-e) 800 mcg-12.5 mg-2,000 unit tablet Take [...] of access: Fistula Surgeon - IR at [facility] Staff and patient report access is working well. Send to Surgeon for access creation. 04/10/23: using AVF d #2 today. 03/01/23: may have steal, going to see surgeon 03/06/23 01/24/23 L AVF at [facility] 01/23/23 (see OP note) 12/25/22: has [facility] appt upcoming 11/01/22: needs AVF eval at [facility] 10/02/22: needs AVF eval at [facility] Anemia Assessment HEMOGLOBIN (G/DL) [...] same bicarbonate in dialysate. 08/13/23: Labs pending CERTIFIED REGISTERED LOCKSMITH 02/08/2023: Educated on low potassium foods. Bone [...] at goal. Intact PTH is at goal. Recovery Room Nurse will adjust binders and vitamin D per protocol and continue to provide dietary education. 08/13/23: Labs pending Cardiovascular Assessment Blood pressures reviewed and are acceptable. Intradialytic weight gains are appropriate. Estimated dry weight is appropriate. Continue same cardiovascular medications. CERTIFIED REGISTERED LOCKSMITH 05/11/2023 decreased to 95.5 kg 03/01/23: increase 96 12/25/22: increase 93.5 11/24/22: increase 92 11/01/22: increase losartan to 100 mg q evening. next would add CCB, edw 93.5 CERTIFIED REGISTERED LOCKSMITH 10/09/2022: Had been still taking hydralazine; not started losartan. Instructed to make change 10/02/22: d/c hydralazine, add Losartan 50 mg q evening. Transplant Status: Patient has been referred. Center - [facility] 04/10/23: got his LEA in Jan and was referred to [facility], still waiting to hear back 11/24/22: not [...]
--- OUTSIDE RECORDS SUMMARY | 2023-11-07 09:35 | XMS_ITS | Encounter Summary ---
Author Organization [facility] Address [address] [place] [address] Phone Care Team Providers Care Senior Gl Accountant Name Role Phone Unavailable Primary Care Provider Unavailabl e Encounter Details Date Type Department Care Team (Late st Contact Info) Description 04/25/2023 Abstract Transplant Program [address] [place], [place] [phone] Williams Lindquist, Transplant 21 Dealer [address] [place], [place] [address] Social History Tobacco Use Types Packs/Day Years Used Date Smoking Tobacco: Never Assessed Sex and Gender Information Value Date Recorded Sex Assigned at Not on file Gender Identity Not on file Sexual Orientation Not on file documented as of this encounter Plan of Treatment Upcoming Encounters Date Type Department Care Team (Late st Contact Info) Description 11/20/2023 10:30 AM CDT Appointment [facility] Echo Lab [address] [place] [address] Blayne Quiroz MD [address] [place], [place] [address] Scheduled Discharge Disposition: Discharged to home or self care 11/20/2023 12:00 PM CDT [facility]ointment [facility] [address] [phone] Scheduled Discharge Disposition: Discharged to home or self care 11/20/2023 12:30 PM CDT Appointment [facility] [place] [address] [place], [place] [address] Blayne Quiroz MD [address] [facility] [address] [place] [address] Scheduled Discharge Disposition: Discharged to home or self care 11/20/2023 1:00 PM CDT Appointment [facility] XRAY [address] [place] [address] Blayne Quiroz MD 701 [facility] [address] [place], [place] [address] Scheduled Discharge Disposition: Discharged to home or self care 11/20/2023 1:30 PM CDT Office Visit Transplant Program [address] [place], [place] [address] Neva Carbajal MBBS 701 [facility] [address] [place], [place] [address] Jade Goode RD, LD 701 [facility] [address] [place], [place] [address] Scheduled Discharge Disposition: Discharged to home or self care 11/20/2023 2:30 PM CDT Nurse Only Transplant Program [address] [place] [address] Neva Carbajal MBBS 701 [facility] [address] [place], [place] [address] Rn, Cali-Pre Recipient Scheduled Discharge Disposition: Discharged to home or self care 12/18/2023 11:00 AM CDT Office Visit [facility] [address] [address] Denae Mckeon MD [address] [place], [place] [address] Scheduled Discharge Disposition: Discharged to home or self care documented as of this encounter Visit Diagnoses Not on filedocumented in this encounter
--- OUTSIDE RECORDS SUMMARY | 2023-11-07 09:35 | XMS_ITS | Encounter Summary ---
Author Organization [facility] Address [address] [facility] [address] [place] [address] Care Team Providers Care Code And Test Clerk Name Role Phone No, Pcp Primary Care Provider [phone] Encounter Details Date Type Department Care Team (Late st Contact Info) Description 09/27/2023 Orders Only [facility] [place] [address] [place] [address] Julito Cortez MD [address] [place] [address] Social History Tobacco Use Types [...] Shireen Ordering Provider LAB BLOOD ORDERABLE S [facility] Contact Performing lab Unknown, [place] [...] 09/28/2023 Unless otherwise specified, test(s) performed at: [facility], [address] [place] [address], [place] [address] OVEN HEATER: Gurdeep Ricardo M.D., Ph.D For any questions, [...] BLOOD ORDERABLES Performing Organization Address [facility]/ZIP Co de Phone Number [facility] See order comments or contact performing lab Unknown, [place] * (ABNORMAL) POST CHEMISTRY (09/27/2023) BUN Post Dialysis 23(H) 6 - 19 mg/dL [facility] 09/27/2023 09/28/2023 3:1 1 AM CDT Narrative [facility] - 09/28/2023 Unless otherwise specified, test(s) performed at: [facility], [address] [place] [address], [place] [address] OVEN HEATER: Gurdeep Ricardo M.D., Ph.D For any questions, please call customer service at FREQUENCY:MONTHLY Resulting Agency Comment Specimen source: Plasma Julito Cortez MD LAB BLOOD ORDERABLES Performing Organization Address [facility] de Phone Number [facility] [...] 09/27/2023 09/28/2023 2:5 6 AM CDT Narrative [facility] - 09/28/2023 Unless otherwise specified, test(s) performed at: [facility], [address] [place] [address] OVEN HEATER: Gurdeep Ricardo M.D., Ph.D For any questions, please call customer service at FREQUENCY:MONTHLY Resulting Agency Comment Specimen source: Serum Julito Cortez MD LAB BLOOD ORDERABLES Performing Organization Address [facility] Co de Phone Number [facility] [employer] [facility] See order comments or contact performing lab Unknown, [place] * (ABNORMAL) [facility] (09/27/2023) PTH 291(H) 16 - 80 pg/mL [facility] 09/27/2023 09/28/2023 3:0 3 AM CDT Narrative [facility] - 09/28/2023 Unless otherwise specified, test(s) performed at: [facility], [address] [place] [address], [place] [address] OVEN HEATER: Gurdeep Ricardo M.D., Ph.D For any questions, please call customer service at FREQUENCY:MONTHLY Resulting Agency Comment Specimen source: Plasma Julito Cortez MD LAB BLOOD ORDERABLES Performing Organization Address [facility]/ZIP Co de Phone Number [facility] [employer] [facility] See order comments or contact performing lab Unknown, [place] documented in this encounter Visit Diagnoses Not on filedocumented in this encounter Care Teams Code And Test Clerk Relationship Specialty Start Date End Date No, Pcp PCP - General Internal Medicine 09/10/23 documented as of this encounter
--- OUTSIDE RECORDS SUMMARY | 2023-11-07 09:35 | XMS_ITS | Encounter Summary ---
Author Organization [facility] Address [address] [place] [address] Phone Care Team Providers Care Cloth Shrinker Name Role Phone Unavailable Primary Care Provider Unavailabl e Encounter Details Date Type Department Care Team (Late st Contact Info) Description 09/03/2023 Documentation Only Transplant Program [address] [place], [place] [address] Williams Lindquist Transplant Laborer [place] [address] [place], [place] [address] Social History Tobacco Use Types Packs/Day Years Used Date Smoking Tobacco: Never Assessed Sex and Gender Information Value Date Recorded Sex Assigned at Not on file Gender Identity Not on file Sexual Orientation Not on file documented as of this encounter Progress Notes * Williams Lindquist Transplant Laborer [place] - 09/03/2023 9:30 AM CDT D/A: Patient's Emergency Medical Assistance checked in [facility] website and found to be inactive. Patient was called with film writer and given this information. Patient responded in Malaysian and does not need an industrial electrician journeyman. Patient stated he believes everything has been covered. Explained that his coverage was checked in the Medical Assistance website which his ID number was entered and the response listed his name and that coverage is inactive. Patient was told to contact [facility] appears he needs to renew his coverage. Patient was also told that appointments scheduled for 09/04/2023 will be canceled. Patient was requested to call when his coverage is in place again. transcription coordinator aware. Brenna Lindquist Transplant Laborer [place], Sunday September 03, 2023 09:35 documented in this encounter Plan of Treatment Upcoming Encounters Date Type Department Care Team (Late st Contact Info) Description 11/20/2023 10:30 AM CDT Appointment [facility] Echo Lab [address] [place] [address] Blayne Quiroz MD [address] [place], [place] [address] Scheduled Discharge Disposition: Discharged to home or self care 11/20/2023 12:00 PM CDT Appointment [facility] [address] [phone] Scheduled Discharge Disposition: Discharged to home or self care 11/20/2023 12:30 PM CDT Appointment [facility] CT [address] [place], [place] [address] Blayne Quiroz MD [address] [place], [place] [address] Scheduled Discharge Disposition: Discharged to home or self care 11/20/2023 1:00 PM CDT Appointment [facility] XRAY [address] [place], [place] [address] Blayne Quiroz MD [address] [place], [place] [address] Scheduled Discharge Disposition: Discharged to home or self care 11/20/2023 1:30 PM CDT Office Visit Transplant Program [address] [place], [place] [address] Neva Carbajal MBBS [address] [place], [place] [address] Jade Goode, RD, LD [address] [place], [place] [phone] Scheduled Discharge Disposition: Discharged to home or self care 11/20/2023 2:30 PM CDT Nurse Only Transplant Program [address] [place] [address] Neva Carbajal MBBS [address] [place] [address] Rn, Cali-Pre Recipient Scheduled Discharge Disposition: Discharged to home or self care 12/18/2023 11:00 AM CDT Office Visit [facility] [address] [address] Denae Mckeon MD [address] [place], [place] [phone] Scheduled Discharge Disposition: Discharged to home or self care documented as of this encounter Visit Diagnoses Not on filedocumented in this encounter
--- OUTSIDE RECORDS SUMMARY | 2023-11-07 09:35 | XMS_ITS | Encounter Summary ---
Author Organization [facility] Address [address] [facility] [address] [place] [address] Care Team Providers Care Director Visual Name Role Phone Unavailable Primary Care Provider Unavailabl e Encounter Details Date Type Department Care Team (Late st Contact Info) Description 08/15/2023 Orders Only [facility] [place] [address] [place] [address] Julito Cortez MD [address] [place] [address] Social History Tobacco Use Types [...] SHIREEN Lab Results (08/15/2023) eKt/V Gotch 1.40 [facility] e Center nPCR_HD 1.21 [facility] WSTDKT/V 2.5 [facility] Center eKt/V (Tattersall) 1.36 [facility] spKt/V Gotch 1.63 [facility] eNPCR 1.12 [facility] spKt/V (Daugirdas II) 1.57 [facility] PCR 79.69 [facility] eKdrt/V 1.40 [facility] 08/15/2023 08/15/2023 Shireen Ordering Provider LAB BLOOD ORDERABLE S [facility] Center Contact Performing lab Unknown, [place] * [...] 08/17/2023 Unless otherwise specified, test(s) performed at: [facility], [address] [place] [address], [place] [address] MARKET RESEARCH INTERVIEWER: Gurdeep Ricardo M.D., Ph.D For any questions, [...] LAB BLOOD ORDERABLES Performing Organization Address [facility]/ZIP Co de Phone Number [facility] See order comments or contact performing lab Unknown, [place] * POST CHEMISTRY (08/15/2023) BUN Post Dialysis 18 6 - 19 mg/dL [facility] 08/15/2023 08/17/2023 8:5 1 AM CDT Narrative [facility] - 08/17/2023 Unless otherwise specified, test(s) performed at: [facility], [address] [place] [address], [place] [address] MARKET RESEARCH INTERVIEWER: Gurdeep Ricardo M.D., Ph.D For any questions, please call customer service at FREQUENCY:MONTHLY Resulting Agency Comment Specimen source: Plasma Julito Cortez MD LAB BLOOD ORDERABLES Performing Organization Address [facility] Co de Phone Number [facility] [...] 08/15/2023 08/17/2023 11: 16 AM CDT Narrative [facility] - 08/17/2023 Unless otherwise specified, test(s) performed at: [facility], [address] [place] [address], [place] [address] MARKET RESEARCH INTERVIEWER: Gurdeep Ricardo M.D., Ph.D For any questions, please call customer service at FREQUENCY:MONTHLY Resulting Agency Comment Specimen source: Serum Julito Cortez MD LAB BLOOD ORDERABLES [facility] See order comments or contact performing lab Unknown, [place] * (ABNORMAL) [facility] Chemistry (08/15/2023) PTH 229(H) 16 - 80 pg/mL [facility] 08/15/2023 08/17/2023 8:2 7 AM CDT Narrative [facility] - 08/17/2023 Unless otherwise specified, test(s) performed at: [facility], [address] [place] [address], [place] [address] MARKET RESEARCH INTERVIEWER: Gurdeep Ricardo M.D., Ph.D For any questions, please call customer service at FREQUENCY:MONTHLY Resulting Agency Comment Specimen source: Plasma Julito Cortez MD LAB BLOOD ORDERABLES [facility] See order comments or contact performing lab Unknown, [place] documented in this encounter Visit Diagnoses Not on filedocumented in this encounter
--- OUTSIDE RECORDS SUMMARY | 2023-11-07 09:35 | XMS_ITS | Encounter Summary ---
Author Organization [facility] Address [address] [facility] [address] [place] [address] Care Team Providers Care Reaming Press Operator Name Role Phone Unavailable Primary Care Provider Unavailabl e Encounter Details Date Type Department Care Team (Late st Contact Info) Description 08/08/2023 Orders Only [facility] [place] [address] [place] [address] Julito Cortez MD [address] [place] [address] Social History Tobacco Use Types [...] (08/08/2023) Hemoglobin 10.2(L) 14.0 - 18.0 g/dL [facility] Hemoglobin x 3 30.6(L) 42.0 - 54.0 % [facility] 08/08/2023 08/09/2023 3:5 6 AM CDT Narrative [facility] - 08/09/2023 Unless otherwise specified, test(s) performed at: [facility], [address] [place] [address], [place] [address] ARTIFICIAL PEARL MAKER: Gurdeep Ricardo M.D., Ph.D For any questions, please call customer service at FREQUENCY:OTHER Resulting Agency Comment Specimen source: Blood Julito Cortez MD LAB BLOOD ORDERABLES [facility] See order comments or contact performing lab Unknown, [place] documented in this encounter Visit Diagnoses Not on filedocumented in this encounter
--- OUTSIDE RECORDS SUMMARY | 2023-11-07 09:35 | XMS_ITS | Encounter Summary ---
Author Organization [facility] Address [address] [place] [address] Care Team Providers Care Heater Planer Operator Name Role Phone No, Pcp Primary Care Provider [phone] Encounter Details Date Type Department Care Team (Late st Contact Info) Description 11/03/2023 Orders Only [facility] [address] [place] [address] Julito Cortez MD [address] [place] [address] Social History Tobacco Use Types [...] Date/Time Associated Diagnosis Comments HD KINETICS Routine 11/03/2023 POST CHEMISTRY Routine 11/03/2023 HEMATOLOGY Routine 11/03/2023 CHEMISTRY Routine 11/03/2023 CHEMISTRY Routine 11/03/2023 documented in this encounter Results * (ABNORMAL) HEMATOLOGY (11/03/2023) Neutrophils 54.3 40.0 - 75.0 % Spectra [...] 11/03/2023 11/06/2023 10: 37 AM CDT Narrative [facility] - 11/06/2023 Unless otherwise specified, test(s) performed at: [facility], [address] [place] [address], [place] [address] VAT WASHER: Gurdeep Ricardo M.D., Ph.D For any questions, please call customer service at FREQUENCY:MONTHLY Resulting Agency Comment Specimen source: Blood Julito Cortez MD LAB BLOOD ORDERABLES Performing Organization Address [facility] Co de Phone Number [facility] See order comments or contact performing lab Unknown, [place] * (ABNORMAL) HD KINETICS (11/03/2023) % Urea Reduction 48(L) 65 - 80 % [facility] 11/03/2023 11/06/2023 10: 47 AM CDT Narrative Resulting Agency Comment Specimen source: Plasma Julito Cortez MD LAB BLOOD ORDERABLES Performing Organization Address [facility] Co de Phone Number [facility] See order comments or contact performing lab Unknown, [place] * (ABNORMAL) POST CHEMISTRY (11/03/2023) BUN Post Dialysis 23(H) 6 - 19 mg/dL [facility] 11/03/2023 11/06/2023 10: 47 AM CDT Narrative [facility] - 11/06/2023 Unless otherwise specified, test(s) performed at: [facility], [address] [place] [address], [place] [address] VAT WASHER: Gurdeep Ricardo M.D., Ph.D For any questions, please call customer service at FREQUENCY:MONTHLY Resulting Agency Comment Specimen source: Plasma Julito Cortez MD LAB BLOOD ORDERABLES [facility] See order comments or contact performing lab Unknown, [place] * (ABNORMAL) [facility] (11/03/2023) BUN 44(H) 6 - 19 mg/dL [facility] [...] 11/03/2023 11/06/2023 10: 28 AM CDT Narrative [facility] - 11/06/2023 Unless otherwise specified, test(s) performed at: [facility], [address] [place] [address], [place] [address] VAT WASHER: Gurdeep Ricardo M.D., Ph.D For any questions, please call customer service at FREQUENCY:MONTHLY Resulting Agency Comment Specimen source: Serum Julito Cortez MD LAB BLOOD ORDERABLES Performing Organization Address [facility] de Phone Number [facility] See order comments or contact performing lab Unknown, [place] * (ABNORMAL) [facility] (11/03/2023) PTH 328(H) 16 - 80 pg/mL [facility] 11/03/2023 11/06/2023 10: 37 AM CDT Narrative [facility] - 11/06/2023 Unless otherwise specified, test(s) performed at: [facility], [address] [place] [address], [place] [address] VAT WASHER: Gurdeep Ricardo M.D., Ph.D For any questions, please call customer service at FREQUENCY:MONTHLY Resulting Agency Comment Specimen source: Plasma Julito Cortez MD LAB BLOOD ORDERABLES Performing Organization Address [facility] de Phone Number [facility] See order comments or contact performing lab Unknown, [place] documented in this encounter Visit Diagnoses Not on filedocumented in this encounter Care Teams Heater Planer Operator Relationship Specialty Start Date End Date No, Pcp PCP - General Internal Medicine 09/10/23 documented as of this encounter
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
--- OUTSIDE RECORDS SUMMARY | 2023-11-07 09:36 | XMS_ITS | Encounter Summary ---
Author Organization [facility] Address [address] [place] [address] Care Team Providers Care Portal Administrator Name Role Phone Unavailable Primary Care Provider Unavailabl e Encounter Details Date Type Department Care Team (Late st Contact Info) Description 08/01/2023 Orders Only [facility] [place] [address] [place] [address] Julito Cortez MD [address] [place] [address] Social History Tobacco Use Types [...] (08/01/2023) Hemoglobin 10.3(L) 14.0 - 18.0 g/dL [facility] Hemoglobin x 3 30.9(L) 42.0 - 54.0 % [facility] 08/01/2023 08/02/2023 2:4 9 PM CDT Narrative [facility] - 08/02/2023 Unless otherwise specified, test(s) performed at: [facility], [address] [place] [address], [place] [address] LOCATION WORKER: Gurdeep Ricardo M.D., Ph.D For any questions, please call customer service at FREQUENCY:OTHER Resulting Agency Comment Specimen source: Blood Julito Cortez MD LAB BLOOD ORDERABLES [facility] See order comments or contact performing lab Unknown, [place] documented in this encounter Visit Diagnoses Not on filedocumented in this encounter
--- OUTSIDE RECORDS SUMMARY | 2023-11-07 09:36 | XMS_ITS | Encounter Summary ---
Author Organization [facility] [place] Address [address] [place] [address] Care Team Providers Care Senior Systems Developer Name Role Phone Unavailable Primary Care Provider Unavailabl e Encounter Details Date Type Department Care Team (Late st Contact Info) Description 08/01/2023 Treatment [facility] [address] [place] [address] Francisco Tenorio APRN-LIME FILTER OPERATOR [address] [place] [address] Social History Tobacco Use Types [...] Name: Maco Stein : 1980 Chart #: [id number] Sex: M This patient was personally seen [...] PM ) BP (sit): 173/88 AP(-) / LIME FILTER OPERATOR: 195/221 Pulse: 84 Chairside data as of [...] 1.0 mcg ORAL 3X Week 07/16/2023 07/14/2024 SYSTEM SUPPORT TECHNICIAN: Julito Cortez MD LOCATION: [phone] SCHEDULE: M-W-F 2nd Shift EDW: kg. DIALYZER: HD DURATION: NEEDLE SIZE: ANTICOAG: BATH: QB: ml/min QD: ml/min Subjective 07/13/23: Feels well. BP's still high. occ MORA. no SOB or CP. 06/29/23: Feels well. no SOB or CP. has appt next week at [facility] Txp. 06/15/23: Feels well. no concerns. cost was a barrier to getting the Angeliquekelma, hasn't obtained it,yet. 05/01/23: Feels well. no SOB or CP. No N/v/d. Stable wt. BP's are better. 04/10/23: Feels well, 2nd day with 2 16 g needles in. no SOB or CP. 03/01/23: HD going well. but having L AVF/arm discomfort/numbness, worse on the run. has appt at [facility] next with Dr. Solorzano. fingers cool but not cold, no weakness, no pain. Interested in HHD and going to for education tomorrow. referred for txp to [facility]. 01/24/23: Feels well, got his AVF at [facility] yesterday. no arm pain. no SOB or CP. 12/25/22: BP is better after lowering his meds. still has ringing in his ears at end of every run, and leaving about EDW and no edema or SOB. Going for AVF soon. still can't do Txp eval until insurance is confirmed. 11/24/22: Feels fine today. No SOB or CP. hasn't been to [facility], yet. no N/V. 11/01/22: my second time seeing him. feels better. has had some tinnitus. BP is high but no MORA, blurry vision, CP or SOB. appetite is better. Taking losartan 50 mg/d. 10/02/22: My first time meeting him. his second time here, started here 09/29. Came from [facility] where he initiated. Feels ok today. no SOB or CP Advanced Practitioner Subjective BACKROOM ASSOCIATE 08/01/2023:Seen on dialysis. Doing well. No SOB, or chest pain reported. Arm access working well; no reported issues. BP slightly elevated. Leaving close to EDW. Potassium improved. Continue plan ofcare. BACKROOM ASSOCIATE 06/06/2023: Patient seen on dialysis. Doing well. [...] mouth twice a day 07/13/2023 RenaPlex-D (vit b,v-ki-vtuq-selen-vit d3-e) 800 mcg-12.5 mg-2,000 unit tablet Take [...] of access: Fistula Surgeon - IR at [facility] Staff and patient report access is working well. Send to Surgeon for access creation. 04/10/23: using AVF d #2 today. 03/01/23: may have steal, going to see surgeon 03/06/23 01/24/23 L AVF at [facility] 01/23/23 (see OP note) 12/25/22: has [facility] appt upcoming 11/01/22: needs AVF eval at [facility] DUANE TODD 10/02/22: needs AVF eval at [facility] DUANE Anemia Assessment HEMOGLOBIN (G/DL) IN BLOOD [...] same bicarbonate in dialysate. 07/13/23: labs pending BACKROOM ASSOCIATE 02/08/2023: Educated on low potassium foods. Bone [...] at goal. Intact PTH is at goal. Fine Grader will adjust binders and vitamin D per protocol and continue to provide dietary education. Cardiovascular Assessment Blood pressures reviewed and are acceptable. Intradialytic weight gains are appropriate. Estimated dry weight is appropriate. Continue same cardiovascular medications. BACKROOM ASSOCIATE 05/11/2023 decreased to 95.5 kg MD 03/01/23: increase 96 MD 12/25/22: increase 93.5 MD 11/24/22: increase 92 MD 11/01/22: increase losartan to 100 mg q evening. next would add CCB, edw 93.5 BACKROOM ASSOCIATE 10/09/2022: Had been still taking hydralazine; not started losartan. Instructed to make change 10/02/22: d/c hydralazine, add Losartan 50 mg q evening. Transplant Status: Patient has been referred. Center - [facility] 04/10/23: got his LEA in Jan and was referred to [facility], still waiting to hear back 11/24/22: not [...]
== END 2023-11-07 09:29 | disposition home or self-care (01) ==
LOC: WOUND 09:28
PROVIDERS: PCP Internal Medicine; Visit Provider Surgery
DX: E11.621 Type 2 diabetes mellitus with foot ulcer (principal); E11.40 Type 2 diabetes mellitus with diabetic neuropathy, unspecified; L97.522 Non-pressure chronic ulcer of other part of left foot with fat layer exposed; E11.22 Type 2 diabetes mellitus with diabetic chronic kidney disease; N18.6 End stage renal disease; Z99.2 Dependence on renal dialysis; Z79.4 Long term (current) use of insulin
CPT/HCPCS: 97597; G0463

== ENCOUNTER 2023-11-14 09:20 | Outpatient (CLI) | payer MEDICAID, SELFPAY ==
--- OUTSIDE RECORDS SUMMARY | 2023-11-14 09:22 | XMS_ITS ---
Author Name [facility] Address [address] [place] [address] Phone [phone] Organization [facility] e, NA DOCUMENT DISCLAIMER Multiple document versions may exist, please be sure you review the latest version. The information in the [facility] Continuity of Care Document represents a summary [...] 01, 2022 Hyperkalemia E87.5 Active December 01 Hypocalcemia E83.51 Active December 01 3 Type [...] Route Start Date End Date Stat us Heparin Pork 1,000 Units/mL Systemic Self Administer Home Bolus, Every Treatment 2000 units Intravenous - push October 12, 2023 October 10, 2024 Active Iron Sucrose (Venofer) Self Administer at Home Every 2 weeks 100 mg Intravenous - push November 07, 2023 November 05, 2024 Active Mircera Self Administer at Home Once 50 mcg Subcutaneous November 07, 2023 Discontinued Home Medications Medication Instructions Dosage [...] Sign Value Date / Time Blood Pressure-sitting 168/84 mmHg November 10, 2023 07:53 AM Blood Pressure-standing 134/61 mmHg [facility] 2023 07:53 AM Heart Rate 95 beats per minute October 07:53 AM Weight Vital Sign Value Date / Time Estimated Dry Weight 87 kg October 11:59 PM Pre-Dialysis 86.5 kg November 09 07:53 AM Post-Dialysis 85.4 kg November 09 07:53 AM Other Other Value Date / Time Height 175 cm August 27, 2023 12 :00 AM LAB RESULTS Hematology Result Type Result Value Relevant Referen ce Range Interpretation Date Folate, Serum 17.0 ng/mL No Reference Ran ge Provided - November 20, 2022 UIBC (Calc) 154 mcg/dL 155 - 355 [...] - 10.80 1000/mcL Low July 11, 2023 Platelets 129 1000/mcL 130 - 400 1000/mcL Low August 15, 2023 WBC (No Diff) 6.06 1000/mcL 4.80 - 10.80 1000/mcL - August 15, 2023 Ferritin 750 ng/mL 22 - 322 ng/mL High August 14, 024 TIBC 252 mcg/dL 185 - 515 mcg/dL - August 15, 2023 Transferrin Sat. (Calc) 29 % 20 - 55 % - August 15, 2023 UIBC (Calc) 179 mcg/dL 155 - 355 mcg/dL - July Hemoglobin x 3 30.3 % 42.0 - [...] % 19.0 - 48.0 % - August 30 024 Neutrophils 68.8 % 40.0 - 75.0 % - August 30 024 WBC (No Diff) 4.25 1000/mcL 4.80 - 10.80 1000/mcL Low August 31, 2023 [place] 1.4 % 0.0 - 4.0 % - August 31, 2023 Basophils 0.6 % 0.0 - 1.5 % - August 31, 2023 MCH 35.2 pg 27.0 - 31.0 pg High August 30 024 Transferrin Sat. (Calc) 43 % 20 - 55 % - August 31, 2023 TIBC 247 mcg/dL 185 - 515 mcg/dL - August 31, 2023 UIBC (Calc) 142 mcg/dL 155 - 355 mcg/dL Low August Iron 105 mcg/dL 45 - 160 mcg/dL - August 31, 2023 Ferritin 984 ng/mL 22 - 322 ng/mL High August 30, 2 024 Hemoglobin x 3 33.6 % 42.0 [...] Value Relevant Referen ce Range Interpretation Date URR, Calc 53 % 65 - 80 [...] mEq/L 96 - 108 mEq/L - August 30 024 Potassium 6.6 mEq/L 3.5 - 5.1 [...] 6 - 19 mg/dL High September 26 BUN, Post 23 mg/dL 6 - 19 mg/dL High September 26 024 URR, Calc 57 % 65 - 80 % Low September 26 Bicarbonate 26 mEq/L 20 - 31 mEq/L - November 03, 2023 Potassium 7.2 mEq/L 3.5 - 5.1 mEq/L Critically high Oct Chloride 107 mEq/L 96 - 108 mEq/L - November 03, 2023 BUN/Creat Ratio 5.0 10.0 - 20.0 Low 2023 Sodium 136 mEq/L 136 - 145 mEq/L - November 03, 2023 BUN, Post 23 mg/dL 6 - 19 mg/dL High October URR, Calc 48 % 65 - 80 % Low November 03, 2023 BUN 44 mg/dL 6 - 19 mg/dL High October Creatinine, Serum 8.84 mg/dL 0.60 - 1.30 mg/dL High November 03, 2023 Potassium 7.0 mEq/L 3.5 - 5.1 mEq/L High November 08, 2023 HD Adequacy Result Type Result Value Relevant Referen ce Range Interpretation Date Krt/V 0.00 No Reference Ran ge Provided - June 13, 2023 Krt/V 0.00 No Reference Ran ge Provided - July 11, 2023 Krt/V 0.00 No Reference Ran ge [...] Reference Range Provided - September 27, 2023 spKt/V Daugirdas II (HHD) 0.81 No Reference Range Provided Normal November 03, 2023 wstdKt/V, residual 0.0 No Reference Range Provided - November 03, 2023 wstdKt/V without residual 2.6 No Reference Range Provided - November 03, 2023 wstdKt/V 2.6 No Reference Ran ge Provided - November 03, 2023 Simple Kt/V (Home HD Only) 0.65 [...] - 2.6 mg/dL High August 15, 2023 Vitamin D 25 Hydroxy [...] 8.5 mg/dL 8.7 - 10.4 mg/dL Low Augu st 2023 Ca x P Product 37 0 - September 27, 2023 Phosphorus 4.4 mg/dL 2.6 - 4.5 mg/dL - September Corrected Ca x P Product 38 0 - September 27, 2023 PTH-Intact, Plasma 291 pg/mL 16 - 80 pg/mL High Sep us2023 Corrected Ca x P Product 37 0 - - November 02, 24 Phosphorus 4.4 mg/dL 2.6 - 4.5 mg/dL - November 03, 2023 Ca x P Product 36 0 - November 03, 2023 Calcium, Total 8.2 mg/dL 8.7 - 10.4 mg/dL Low Oct PTH-Intact, Plasma 328 pg/mL 16 - 80 pg/mL High Octber 2023 Liver/Nutrition Result Type Result Value Relevant Reference Range Interpre tation Date Albumin (BCG) 4.3 g/dL 3.5 - 5.2 [...] 29, 2023 Frequency 4X Week Treatment Days ImandenisOlindail Dialyzer/Cartridge CAR 172 Therapy Fluid (dialysate) 2.0 [...] Effective Date Resuscitation status Full Code Julito Cortez Killian 2023 DIALYSIS TREATMENTS NxStage-HHD Date Pre-Treatment Vitals Post-Treatment Vitals Durat ion(hr) Exchanges BFR(mL/min) Cartridge Type Dialysate Dialysis Access Meds-entered by patient Brittni [facility] 2023 Weight 92 kg Weight 90.4 kg 3:0 1 of 300 CAR-172-C 2K 45 Lactate Blood Pressure-sitting 156/72 mmHg Blood Pressure-sitting 18 7/78 mmHg 2 of 400 Blood Pressure-standing 154/68 mmHg Blood Pressure-standing 170/65 mmHg 3 of 400 Heart Rate 83 beats per minute Heart Rate 84 beats per minute 4 of 400 Temperature 98.5 deg. F - - 5 of 10 400 - - - - 6 of 10 400 - - - - 7 of 10 400 - - - - 8 of 400 - - - - 9 of 400 - - - - 10 of 400 November 09, 2023 Weight 91.4 kg Weight 87.3 kg 3:29 1 of 13 240 CAR-172-C 2K 45 Lactate Not available Heparin 1999 Via Access Heparin 2000 Access Blood Pressure-sitting 133/69 mmHg Blood Pressure-sitting 13 3/76 mmHg 2 of 13 300 Blood Pressure-standing 115/60 mmHg Blood Pressure-standing 109/58 mmHg 3 of 13 - Heart Rate 85 beats per minute Heart Rate 92 beats per minute 4 of 400 Temperature 98.4 deg. F - - 5 of 400 - - - - 6 of 400 - - - - 7 of 400 - - - - 8 of 400 - - - - 9 of 400 - - - - 10 of 400 - - - - 11 of 400 - - - - 12 of 400 - - - - 13 of - November 10, 2023 Weight 86.5 kg Weight 85.4 kg 2:59 1 of 10 - CAR-172-C 2K 45 Lactate Not available Heparin 2000 Via Access Heparin 2000 Access Blood Pressure-sitting 179/85 mmHg Blood Pressure-sitting 16 8/84 mmHg 2 of 400 Blood Pressure-standing 138/75 mmHg Blood Pressure-standing 134/61 mmHg 3 of 400 Heart Rate 85 beats per minute Heart Rate 95 beats per minute 4 of 400 Temperature 97.8 deg. F - - 5 of 400 - - - - 6 of 400 - - - - 7 of 400 - - - - 8 of 400 - - - - 9 of 400 - - - - 10 of -
--- OUTSIDE RECORDS SUMMARY | 2023-11-14 09:22 | XMS_ITS | Clinical Summary ---
Author Organization [employer] [employer] Address [address] [place] [phone] Phone Care Team Providers Care Sanitarian Aide Name Role Phone Unavailable Primary Care Provider Unavailabl e Source Comments GoodApril is fully rolled out on playnik. Last update 07/31/08.[facility] [employer] [facility] Allergies Active Allergy Reactions Criticality Noted Date [...] kidney disease, on chronic dialysis ([facility]) 10/13/2022 Anxiety 10/13/2022 HTN (hypertension) 09/15/2022 Diabetes mellitus ([facility]) 01/27/2002 Encounters Date Type Department Care Team Description 11/01/2023 Documentation Only Transplant Program [address] [place] [address] Williams Lindquist Transplant Mortgage Loan Interviewer 10/03/2023 Documentation Only Transplant Program [address] [place] [address] Williams Lindquist Transplant Mortgage Loan Interviewer 09/26/2023 Abstract Transplant Program [address] [place] [address] Williams Lindquist Transplant Mortgage Loan Interviewer 09/03/2023 Documentation Only Transplant Program [address] [place] [address] Williams Lindquist Transplant Mortgage Loan Interviewer from Last 3 Months Social History Tobacco [...] Info) Description 11/20/2023 10:30 AM CDT Appointment [facility] [address] [place] [address] Blayne Quiroz MD [address] [place], [place] [address] Scheduled Discharge Disposition: Discharged to home or self care 11/20/2023 12:00 PM CDT [facility]ointment [facility] [address] [address] Scheduled Discharge Disposition: Discharged to home or self care 11/20/2023 12:30 PM CDT Appointment [facility] [address] [place], [place] [address] Blayne Quiroz MD [address] [place], [place] [address] Scheduled Discharge Disposition: Discharged to home or self care 11/20/2023 1:00 PM CDT Appointment [facility] [address] [place], [place] [address] Blayne Quiroz MD [address] [place], [place] [address] Scheduled Discharge Disposition: Discharged to home or self care 11/20/2023 1:30 PM CDT Office Visit Transplant Program [address] [place], [place] [address] Neva Carbajal MBBS [address] [place], [place] [address] Jade Goode, RD, LD [address] [place], [place] [address] Scheduled Discharge Disposition: Discharged to home or self care 11/20/2023 2:30 PM CDT Nurse Only Transplant Program [address] [place], [place] [address] Neva Carbajal MBBS [address] [place] [address] Rn, Cali-Pre Recipient Scheduled Discharge Disposition: Discharged to home or self care 12/18/2023 11:00 AM CDT Office Visit [facility] [address] [address] Denae Mckeon MD [address] [facility] [address] [place] [address] Scheduled Discharge Disposition: Discharged to home or [...] Other 05/26/2020 Attn [facility] [address] [place] [address]
--- OUTSIDE RECORDS SUMMARY | 2023-11-14 09:22 | XMS_ITS | Referral Summary ---
Author Organization [facility] [place] Address [address] [address] Phone Care Team Providers Care Crna Name Role Phone Unavailable Primary Care Provider Unavailabl e Source Comments Liquiteria is fully rolled out on [employer]. Last update 07/31/08.[employer] Encounters Date Type Department Care Team Description 11/01/2023 Documentation Only Transplant Program [address] [place] [address] Williams Lindquist Transplant Product Design Specialist 10/03/2023 Documentation Only Transplant Program [address] [place] [address] Williams Lindquist Transplant Product Design Specialist 09/26/2023 Abstract Transplant Program [address] [place] [address] Williams Lindquist Transplant Product Design Specialist 09/03/2023 Documentation Only Transplant Program [address] [place] [address] Williams Lindquist Transplant Product Design Specialist from Last 3 Months Allergies Active Allergy [...] to chronic kidney disease, on chronic dialysis ([facility]) 10/13/2022 Anxiety 10/13/2022 HTN (hypertension) 09/15/2022 Diabetes mellitus ([facility]) 01/27/2002 Social History Tobacco Use Types [...] Info) Description 11/20/2023 10:30 AM CDT Appointment [facility] Echo Lab [address] [place] [address] Blayne Quiroz MD [address] [place], [place] [address] Scheduled Discharge Disposition: Discharged to home or self care 11/20/2023 12:00 PM CDT [facility] [address] [address] Scheduled Discharge Disposition: Discharged to home or self care 11/20/2023 12:30 PM CDT Appointment [facility] CT [address] [place], [place] [address] Blayne Quiroz MD [address] [place], [place] [address] Scheduled Discharge Disposition: Discharged to home or self care 11/20/2023 1:00 PM CDT Appointment [facility] XRAY [address] [place], [place] [address] Blayne Quiroz MD [address] [place], [place] [address] Scheduled Discharge Disposition: Discharged to home or self care 11/20/2023 1:30 PM CDT Office Visit Transplant Program [address] [place], [place] [address] Neva Carbajal MBBS [address] [place], [place] [address] Jade Goode, RD, LD [address] [place], [place] [address] Scheduled Discharge Disposition: Discharged to home or self care 11/20/2023 2:30 PM CDT Nurse Only Transplant Program [address] [place], [place] [address] Neva Carbajal MBBS [address] [place] [address] Rn, Cali-Pre Recipient Scheduled Discharge Disposition: Discharged to home or self care 12/18/2023 11:00 AM CDT Office Visit [facility] [address] [address] Denae Mckeon MD [address] [place] [address] Scheduled Discharge Disposition: Discharged to home or self care CORPORATE,KIDNEY ACQUISITION COST-CURRENT NEW Corporate Other 05/26/2020 Attn Williams Lindquist [facility] [address] [place] [address]
--- OUTSIDE RECORDS SUMMARY | 2023-11-14 09:23 | XMS_ITS | Encounter Summary ---
Author Organization [facility] Address [address] [place] [address] Phone Care Team Providers Care Boatswains Mate Name Role Phone Unavailable Primary Care Provider Unavailabl e Encounter Details Date Type Department Care Team (Late st Contact Info) Description 09/03/2023 Documentation Only Transplant Program [address] [place], [place] [address] Williams Lindquist Transplant Turn Out Worker [address] [place], [place] [address] Social History Tobacco Use Types Packs/Day Years Used Date Smoking Tobacco: Never Assessed Sex and Gender Information Value Date Recorded Sex Assigned at Not on file Gender Identity Not on file Sexual Orientation Not on file documented as of this encounter Progress Notes * Williams Lindquist Transplant Turn Out Worker - 09/03/2023 9:30 AM CDT D/A: Patient's Emergency Medical [place] checked in [facility] website and found to be inactive. Patient was called with slide developer and given this information. Patient responded in Salvadorean and does not need an womens health nurse practitioner. Patient stated he believes everything has been covered. Explained that his coverage was checked in the Medical Assistance website which his ID number was entered and the response listed his name and that coverage is inactive. Patient was told to contact [facility] appears he needs to renew his coverage. Patient was also told that appointments scheduled for 09/04/2023 will be canceled. Patient was requested to call when his coverage is in place again. broadcast traffic coordinator aware. Brenna Lindquist Transplant Turn Out Worker, Sunday September 03, 2023 09:35 documented in this encounter Plan of Treatment Upcoming Encounters Date Type Department Care Team (Late st Contact Info) Description 11/20/2023 10:30 AM CDT Appointment [facility] [place] [address] [place] [address] Blayne Quiroz MD [address] [place], [place] [address] Scheduled Discharge Disposition: Discharged to home or self care 11/20/2023 12:00 PM CDT [facility]ointment [facility] [address] [phone] Scheduled Discharge Disposition: Discharged to home or self care 11/20/2023 12:30 PM CDT Appointment [facility] [place] [address] [place], [place] [address] Blayne Quiroz MD [address] [place], [place] [address] Scheduled Discharge Disposition: Discharged to home or self care 11/20/2023 1:00 PM CDT Appointment [facility] [place] [address] [place], [place] [address] Blayne Quiroz MD [address] [place], [place] [address] Scheduled Discharge Disposition: Discharged to home or self care 11/20/2023 1:30 PM CDT Office Visit Transplant Program [address] [place], [place] [address] Neva Carbajal MBBS [address] [place], [place] [address] Jade Goode, RD, LD [address] [place], [place] [id number] Scheduled Discharge Disposition: Discharged to home or self care 11/20/2023 2:30 PM CDT Nurse Only Transplant Program [address] [place] [address] Neva Carbajal MBBS [address] [place] [address] Rn, Cali-Pre Recipient Scheduled Discharge Disposition: Discharged to home or self care 12/18/2023 11:00 AM CDT Office Visit [facility] [address] [address] Denae Mckeon MD [address] [place], [place] [address] Scheduled Discharge Disposition: Discharged to home or self care documented as of this encounter Visit Diagnoses Not on filedocumented in this encounter
--- OUTSIDE RECORDS SUMMARY | 2023-11-14 09:23 | XMS_ITS | Encounter Summary ---
Author Organization [facility] Address [address] [facility] [address] [place] [address] Care Team Providers Care Nursing Education Specialist Name Role Phone No, Pcp Primary Care Provider [phone] Encounter Details Date Type Department Care Team (Late st Contact Info) Description 09/27/2023 Orders Only [facility] [address] [place] [address] Julito Cortez MD [address] [place] [address] Social History Tobacco Use Types [...] Shireen Ordering Provider LAB BLOOD ORDERABLE S [facility] Center Contact Performing lab Unknown, [...] 09/28/2023 Unless otherwise specified, test(s) performed at: [facility], [address] [place] [address], [place] [address] HEAD OF LOSS PREVENTION: Gurdeep Ricardo M.D., Ph.D For any questions, [...] MD LAB BLOOD ORDERABLES Performing Organization Address [facility]/ZIP Co de Phone Number [facility] See order comments or contact performing lab Unknown, [place] * (ABNORMAL) POST CHEMISTRY (09/27/2023) BUN Post Dialysis 23(H) 6 - 19 mg/dL [facility] 09/27/2023 09/28/2023 3:1 1 AM CDT Narrative [facility] - 09/28/2023 Unless otherwise specified, test(s) performed at: [facility], [address] [place] [address], [place] [address] HEAD OF LOSS PREVENTION: Gurdeep Ricardo M.D., Ph.D For any questions, please call customer service at FREQUENCY:MONTHLY Resulting Agency Comment Specimen source: Plasma Julito Cortez MD LAB BLOOD ORDERABLES Performing Organization Address [facility] de Phone Number [facility] [...] 09/27/2023 09/28/2023 2:5 6 AM CDT Narrative [facility] - 09/28/2023 Unless otherwise specified, test(s) performed at: [facility], [address] [place] [address] HEAD OF LOSS PREVENTION: Gurdeep Ricardo M.D., Ph.D For any questions, please call customer service at FREQUENCY:MONTHLY Resulting Agency Comment Specimen source: Serum Julito Cortez MD LAB BLOOD ORDERABLES Performing Organization Address [facility] Co de Phone Number [facility] doxo [facility] See order comments or contact performing lab Unknown, [place] * (ABNORMAL) [facility] Chemistry (09/27/2023) PTH 291(H) 16 - 80 pg/mL [facility] 09/27/2023 09/28/2023 3:0 3 AM CDT Narrative [facility] - 09/28/2023 Unless otherwise specified, test(s) performed at: [facility], [address] [place] [address], [place] [address] HEAD OF LOSS PREVENTION: Gurdeep Ricardo M.D., Ph.D For any questions, please call customer service at FREQUENCY:MONTHLY Resulting Agency Comment Specimen source: Plasma Julito Cortez MD LAB BLOOD ORDERABLES Performing Organization Address [facility]/ZIP Co de Phone Number [facility] See order comments or contact performing lab Unknown, [place] documented in this encounter Visit Diagnoses Not on filedocumented in this encounter Care Teams Nursing Education Specialist Relationship Specialty Start Date End Date No, Pcp PCP - General Internal Medicine 09/10/23 documented as of this encounter
--- OUTSIDE RECORDS SUMMARY | 2023-11-14 09:23 | XMS_ITS | Encounter Summary ---
Author Organization [facility] Address [address] [facility] [address] [place] [address] Care Team Providers Care Rn Surgery Name Role Phone No, Pcp Primary Care Provider [phone] Encounter Details Date Type Department Care Team (Late st Contact Info) Description 09/10/2023 Orders Only [facility] [place] [address] [place] [address] Julito Cortez MD [address] [place] [address] Social History Tobacco Use Types [...] (09/10/2023) Potassium 6.0(H) 3.5 - 5.1 mEq/L [facility] 09/10/2023 09/11/2023 3:3 0 AM CDT Narrative [facility] - 09/11/2023 Unless otherwise specified, test(s) performed at: [facility], [address] [place] [address], [place] [address] GRAVITY PROSPECTING OBSERVER HELPER: Gurdeep Ricardo M.D., Ph.D For any questions, please call customer service at FREQUENCY:OTHER Resulting Agency Comment Specimen source: Serum Julito Cortez MD LAB BLOOD ORDERABLES [facility] See order comments or contact performing lab Unknown, [place] documented in this encounter Visit Diagnoses Not on filedocumented in this encounter Care Teams Rn Surgery Relationship Specialty Start Date End Date No, Pcp PCP - General Internal Medicine 09/10/23 documented as of this encounter
--- OUTSIDE RECORDS SUMMARY | 2023-11-14 09:23 | XMS_ITS | Encounter Summary ---
Author Organization [facility] Address [address] [facility] [address] [place] [address] Care Team Providers Care Muck Boss Name Role Phone No, Pcp Primary Care Provider [phone] Encounter Details Date Type Department Care Team (Late st Contact Info) Description 11/08/2023 Orders Only [facility] [place] [address] [place] [address] Julito Cortez MD [address] [place] [address] Social History Tobacco Use Types [...] Priority Date/Time Associated Diagnosis Comments CHEMISTRY Routine 11/08/2023 documented in this encounter Results * (ABNORMAL) [facility] (11/08/2023) Potassium 7.0(H) 3.5 - 5.1 mEq/L [facility] Comment: Verified by repeat analysis. 11/08/2023 11/10/2023 8:5 8 AM CDT Narrative [facility] - 11/10/2023 Unless otherwise specified, test(s) performed at: [facility], [address] [place] [address], [place] [address] SHUTTLE CAR OPERATOR: Gurdeep Ricardo M.D., Ph.D For any questions, please call customer service at FREQUENCY:OTHER Resulting Agency Comment Specimen source: Serum Julito Cortez MD LAB BLOOD ORDERABLES [facility] See order comments or contact performing lab Unknown, [place] documented in this encounter Visit Diagnoses Not on filedocumented in this encounter Care Teams Muck Boss Relationship Specialty Start Date End Date No, Pcp PCP - General Internal Medicine 09/10/23 documented as of this encounter
--- OUTSIDE RECORDS SUMMARY | 2023-11-14 09:23 | XMS_ITS | Encounter Summary ---
Author Organization [facility] Address [address] [facility] [address] [place] [address] Care Team Providers Care Building Economist Name Role Phone Unavailable Primary Care Provider Unavailabl e Encounter Details Date Type Department Care Team (Late st Contact Info) Description 08/29/2023 Orders Only [facility] [place] [address] [place] [address] Julito Cortez MD [address] [place] [address] Social History Tobacco Use [...] (08/29/2023) Hemoglobin 9.3(L) 14.0 - 18.0 g/dL [facility] Hemoglobin x 3 27.9(L) 42.0 - 54.0 % [facility] 08/29/2023 09/01/2023 12: 05 PM CDT Narrative [facility] - 09/01/2023 Unless otherwise specified, test(s) performed at: [facility], [address] [place] [address], [place] [address] COMBINER: Gurdeep Ricardo M.D., Ph.D For any questions, please call customer service at FREQUENCY:OTHER Resulting Agency Comment Specimen source: Blood uJlito Cortez MD LAB BLOOD ORDERABLES [facility] See order comments or contact performing lab Unknown, [place] documented in this encounter Visit Diagnoses Not on filedocumented in this encounter
--- OUTSIDE RECORDS SUMMARY | 2023-11-14 09:23 | XMS_ITS | Encounter Summary ---
Author Organization [facility] Address [address] [place] [address] Phone Care Team Providers Care Manager Clinic Name Role Phone Unavailable Primary Care Provider Unavailabl e Encounter Details Date Type Department Care Team (Late st Contact Info) Description 09/26/2023 Abstract Transplant Program [address] [place], [place] [address] Williams Lindquist, Transplant Neonatal Pediatric Nurse [address] [place], [place] [address] Social History Tobacco Use Types Packs/Day Years Used Date Smoking Tobacco: Never Assessed Sex and Gender Information Value Date Recorded Sex Assigned at Not on file Gender Identity Not on file Sexual Orientation Not on file documented as of this encounter Plan of Treatment Upcoming Encounters Date Type Department Care Team (Late st Contact Info) Description 11/20/2023 10:30 AM CDT App[place]ment [facility] [place] [address] [place] [address] Blayne Quiroz MD [address] [place], [place] [address] Scheduled Discharge Disposition: Discharged to home or self care 11/20/2023 12:00 PM CDT Appointment [facility] [address] [id number] Scheduled Discharge Disposition: Discharged to home or self care 11/20/2023 12:30 PM CDT Appointment [facility] [place] [address] [place], [place] [address] Blayne Quiroz MD [address] [facility] [address] [place] [address] Scheduled Discharge Disposition: Discharged to home or self care 11/20/2023 1:00 PM CDT Appointment [facility] [place] [address] [place] [address] Blayne Quiroz MD 701 [facility] [address] [place], [place] [address] Scheduled Discharge Disposition: Discharged to home or self care 11/20/2023 1:30 PM CDT Office Visit Transplant Program [address] [place], [place] [address] Neva Carbajal MBBS [address] [facility] [address] [place], [place] [address] Jade Goode RD, LD [address] [facility] [address] [place], [place] [address] Scheduled Discharge Disposition: Discharged to home or self care 11/20/2023 2:30 PM CDT Nurse Only Transplant Program [address] [place] [address] Neva Carbajal MBBS [address] [facility] [address] [place], [place] [address] Rn, Cali-Pre Recipient Scheduled Discharge Disposition: Discharged to home or self care 12/18/2023 11:00 AM CDT Office Visit [facility] [address] [address] Denae Mckeon MD [address] [place], [place] [address] Scheduled Discharge Disposition: Discharged to home or self care documented as of this encounter Visit Diagnoses Not on filedocumented in this encounter
--- OUTSIDE RECORDS SUMMARY | 2023-11-14 09:23 | XMS_ITS | Encounter Summary ---
Author Organization [facility] Address [address] [place] [address] Phone Care Team Providers Care Sales And Service Change Leader Name Role Phone Unavailable Primary Care Provider Unavailabl e Encounter Details Date Type Department Care Team (Late st Contact Info) Description 04/25/2023 Abstract Transplant Program [address] [place], [place] [address] Williams Lindquist, Transplant Stock Dealer [address] [place], [place] [address] Social History Tobacco Use Types Packs/Day Years Used Date Smoking Tobacco: Never Assessed Sex and Gender Information Value Date Recorded Sex Assigned at Not on file Gender Identity Not on file Sexual Orientation Not on file documented as of this encounter Plan of Treatment Upcoming Encounters Date Type Department Care Team (Late st Contact Info) Description 11/20/2023 10:30 AM CDT Appointment [facility] [place] [address] [place] [address] Blayne Quiroz MD [address] [place], [place] [address] Scheduled Discharge Disposition: Discharged to home or self care 11/20/2023 12:00 PM CDT Appointment [facility] [address] [id number] Scheduled Discharge Disposition: Discharged to home or self care 11/20/2023 12:30 PM CDT Appointment [facility] [place] [address] [place], [place] [address] Blayne Quiroz MD [address] [facility] [address] [place] [address] Scheduled Discharge Disposition: Discharged to home or self care 11/20/2023 1:00 PM CDT Appointment [facility] [place]RAY 701 [place] [address] Blayne Quiroz MD [address] [facility] [address] [place], [place] [address] Scheduled Discharge Disposition: Discharged to home or self care 11/20/2023 1:30 PM CDT Office Visit Transplant Program [address] [place], [place] [address] Neva Carbajal MBBS [address] [facility] [address] [place], [place] [address] Jade Goode RD, LD [address] [facility] [address] [place], [place] [address] Scheduled Discharge Disposition: Discharged to home or self care 11/20/2023 2:30 PM CDT Nurse Only Transplant Program [address] [place] [address] Neva Carbajal MBBS [address] [facility] [address] [address] [place], [place] [address] Rn, Cali-Pre Recipient Scheduled Discharge Disposition: Discharged to home or self care 12/18/2023 11:00 AM CDT Office Visit [facility] [address] [address] Denae Mckeon MD [address] [place], [place] [address] Scheduled Discharge Disposition: Discharged to home or self care documented as of this encounter Visit Diagnoses Not on filedocumented in this encounter
--- OUTSIDE RECORDS SUMMARY | 2023-11-14 09:23 | XMS_ITS | Encounter Summary ---
Author Organization [facility] Address [address] [facility] [facility] [address] [place] [address] Care Team Providers Care Supervisory Aide Name Role Phone No, Pcp Primary Care Provider [phone] Encounter Details Date Type Department Care Team (Late st Contact Info) Description 11/03/2023 Orders Only [facility] [address] [place] [address] Julito Cortez MD [address] [place] [address] Social History Tobacco Use Types [...] Routine 11/03/2023 [facility] RESULTS Routine 11/03/2023 documented in this encounter Results * [facility] Results (11/03/2023) Simple KT/V (HHD and NXSTAGE) 0.65 Knowledge Center SPKT/V DAUGIRDAS II (HHD & NXSTAGE) 0.81 Knowledge Center WSTDKT/V 2.6 Knowledge Center 11/03/2023 11/03/2023 Shireen Ordering Provider LAB BLOOD ORDERABLE S [facility] Contact Performing lab Unknown, [place] * (ABNORMAL) HEMATOLOGY (11/03/2023) Neutrophils 54.3 40.0 [...] 11/06/2023 Unless otherwise specified, test(s) performed at: [facility], [address] [place] [address], [place] [address] POLICE CHIEF DEPUTY: Gurdeep Ricardo M.D., Ph.D For any questions, [...] MD LAB BLOOD ORDERABLES Performing Organization Address [facility]/ZIP Co de Phone Number [facility] See order comments or contact performing lab Unknown, [place] * (ABNORMAL) POST CHEMISTRY (11/03/2023) BUN Post Dialysis 23(H) 6 - 19 mg/dL [facility] 11/03/2023 11/06/2023 10: 47 AM CDT Narrative [facility] - 11/06/2023 Unless otherwise specified, test(s) performed at: [facility], [address] [place] [address], [place] [address] POLICE CHIEF DEPUTY: Gurdeep Ricardo M.D., Ph.D For any questions, please call customer service at FREQUENCY:MONTHLY Resulting Agency Comment Specimen source: Plasma Julito Cortez MD LAB BLOOD ORDERABLES Performing Organization Address [facility] de Phone Number [facility]PS [facility] KSN [...] 11/03/2023 11/06/2023 10: 28 AM CDT Narrative [facility] 11/06/2023 Unless otherwise specified, test(s) performed at: [facility], [address] [place] [address], [place] [address] POLICE CHIEF DEPUTY: Gurdeep Ricardo M.D., Ph.D For any questions, please call customer service at FREQUENCY:MONTHLY Resulting Agency Comment Specimen source: Serum Julito Cortez MD LAB BLOOD ORDERABLES Performing Organization Address City/[facility]/ZIP Co de Phone Number [facility] See order comments or contact performing lab Unknown, [place] * (ABNORMAL) Spectra Chemistry (11/03/2023) PTH 328(H) 16 - 80 pg/mL [facility] 11/03/2023 11/06/2023 10: 37 AM CDT Narrative [facility] S[facility]RA [facility] - 11/06/2023 Unless otherwise specified, test(s) performed at: [facility], [address] [place] [address], [place] [address] POLICE CHIEF DEPUTY: Gurdeep Ricardo M.D., Ph.D For any questions, please call customer service at FREQUENCY:MONTHLY Resulting Agency Comment Specimen source: Plasma Julito Cortez MD LAB BLOOD ORDERABLES Performing Organization Address City/[facility]/ZIP Co de Phone Number [facility] See order comments or contact performing lab Unknown, [place] documented in this encounter Visit Diagnoses Not on filedocumented in this encounter Care Teams Supervisory Aide Relationship Specialty Start Date End Date No, Pcp PCP - General Internal Medicine 09/10/23 documented as of this encounter
--- OUTSIDE RECORDS SUMMARY | 2023-11-14 09:23 | XMS_ITS | Encounter Summary ---
Author Organization [facility] Address [address] [place] [address] Phone Care Team Providers Care Coupon Collection Clerk Name Role Phone Unavailable Primary Care Provider Unavailabl e Encounter Details Date Type Department Care Team (Late Contact Info) Description 11/01/2023 Documentation Only Transplant Program [address] [place] [address] Williams Lindquist Transplant Airport Location Manager [address] [place], [place] [address] Social History Tobacco Use Types Packs/Day Years Used Date Smoking Tobacco: Never Assessed Sex and Gender Information Value Date Recorded Sex Assigned at Not on file Gender Identity Not on file Sexual Orientation Not on file documented as of this encounter Progress Notes * Williams Lindquist Transplant Airport Location Manager - 11/01/2023 1:48 PM CDT D/A: The following secure email was sent to Rin, patient's outreach and education social worker. Lopez Gar, Sorry to bother you, but I'm wondering if you have received the [facility] approved renewed ESRD Care Planon Maco Stein? He has transplant evaluation appointments scheduled and I'm afraid we'll have to cancel them if we don't have a current Care Plan in place. Thanks for your help, Williams Hui: Response pending. Brenna Lindquist Transplant Airport Location Manager, October 13:49 documented in this encounter Plan of Treatment Upcoming Encounters Date Type Department Care Team (Late st Contact Info) Description 11/20/2023 10:30 AM CDT Appointment [facility] [place] Lab [address] [place], [place] [address] Blayne Quiroz MD [address] [place], [place] [address] Scheduled Discharge Disposition: Discharged to home or self care 11/20/2023 12:00 PM CDT [facility]ointment [facility] [address] [address] Scheduled Discharge Disposition: Discharged to home or self care 11/20/2023 12:30 PM CDT Appointment [facility] [place] [address] [place], [place] [address] Blayne Quiroz MD [address] [place], [place] [address] Scheduled Discharge Disposition: Discharged to home or self care 11/20/2023 1:00 PM CDT Appointment [facility] XRAY [address] [place], [place] [address] Blayne Quiroz MD [address] [place], [place] [address] Scheduled Discharge Disposition: Discharged to home or self care 11/20/2023 1:30 PM CDT Office Visit Transplant Program [address] [place], [place] [address] Neva Carbajal MBBS [address] [place], [place] [address] Jade Goode RD, LD [address] [place], [place] [address] Scheduled Discharge Disposition: Discharged to home or self care 11/20/2023 2:30 PM CDT Nurse Only Transplant Program [address] [place] [address] Neva Carbajal MBBS [address] [facility] [address] [place] [address] Rn, Cali-Pre Recipient Scheduled Discharge Disposition: Discharged to home or self care 12/18/2023 11:00 AM CDT Office Visit [facility] Clinic [address] [address] Denae Mckeon MD [address] [facility] [address] [place] [address] Scheduled Discharge Disposition: Discharged to home or self care documented as of this encounter Visit Diagnoses Not on filedocumented in this encounter
--- OUTSIDE RECORDS SUMMARY | 2023-11-14 09:23 | XMS_ITS ---
Author Organization [facility] Address [address] [place] [address] Phone Care Team Providers Care Education Administrator Name Role Phone Unavailable Primary Care Provider Unavailabl e Transplant Episode Kidney Candidate [facility] ([place], [place]) - [facility] Referred on 05/11/2023 Marked as Approved on 05/11/2023 Kidney CoordinatorChinyere Valencia RN Phone: N/A Fax: N/A Email: N/A Care Team Name Role Phone Fax Email Chinyere [place] RN Kidney Coordinator N/A N/A N/A Julito Cortez MD Fuel Technician Referring Fuel Technician Referring Provider [phone] N/A Kidney Spec Neph[facility] Referring Nephrology Group TXP Nephrology Group N/A N/A N/A Chinyere Valencia RN TXP Pre Coordinator N/A N/A N/A Events Pre-Transplant Referred: 05/11/2023 Committee: 07/20/2023 Appointments (10/14/2023 - 12/14/2023) When With Description 11/20/2023 Transplant - Kamala Simental Scheduled 11/20/2023 Transplant - Stacia Goode Sched ed Dialysis History Dialysis History Start End Type Comments Center Home Hemodialysis [facility] Dialysis Center Information Center Phone Fax Address [facility] [phone] [address] [facility] [address]
--- OUTSIDE RECORDS SUMMARY | 2023-11-14 09:23 | XMS_ITS | Encounter Summary ---
Author Organization [facility] Address [address] [place] [address] Phone Care Team Providers Care Clay Grinder Name Role Phone Unavailable Primary Care Provider Unavailabl e Encounter Details Date Type Department Care Team (Late st Contact Info) Description 10/03/2023 Documentation Only Transplant Program [address] [place], [place] [address] Williams Lindquist Transplant Instructional Supervisor [address] [place], [place] [address] Social History Tobacco Use Types Packs/Day Years Used Date Smoking Tobacco: Never Assessed Sex and Gender Information Value Date Recorded Sex Assigned at Not on file Gender Identity Not on file Sexual Orientation Not on file documented as of this encounter Progress Notes * Williams Lindquist Transplant Instructional Supervisor - 10/03/2023 9:12 AM CDT D/A: Received message from patient's daughter stating his Emergency Medical Assistance insurance isin place again. This was verified by [facility] website. Patient contacted and informed someone will becontacting him to reschedule the appointments that had to be canceled in August. Also talked with himabout applying for Uncompensated Care and patient requested an email be sent to him with the numberto call. Brenna Lindquist Transplant Instructional Supervisor, Tuesday October 03, 2023 09:16 documented in this encounter Plan of Treatment Upcoming Encounters Date Type Department Care Team (Late st Contact Info) Description 11/20/2023 10:30 AM CDT Appointment [facility] Echo Lab [address] [place] [address] Blayne Quiroz MD [address] [place], [place] [address] Scheduled Discharge Disposition: Discharged to home or self care 11/20/2023 12:00 PM CDT Appointment [facility] Card[facility] Clinic [address] [address] Scheduled Discharge Disposition: Discharged to home or self care 11/20/2023 12:30 PM CDT Appointment [facility] CT [address] [place], [place] [address] Blayne Quiroz MD [address] [place] [address] Scheduled Discharge Disposition: Discharged to home or self care 11/20/2023 1:00 PM CDT Appointment [facility] XRAY [address] [place] [address] Blayne Quiroz MD [address] [place], [place] [address] Scheduled Discharge Disposition: Discharged to home or self care 11/20/2023 1:30 PM CDT Office Visit Transplant Program [address] [place], [place] [address] Neva Carbajal MBBS [address] [place], [place] [address] Jade Goode RD, LD [address] [place], [place] [address] Scheduled Discharge Disposition: Discharged to home or self care 11/20/2023 2:30 PM CDT Nurse Only Transplant Program [address] [place], [place] [address] Neva Carbajal MBBS [address] [facility] [address] [place] [address] RnCali-Pre Recipient Scheduled Discharge Disposition: Discharged to home or self care 12/18/2023 11:00 AM CDT Office Visit [facility] Cardiology Clinic [address] [address] Denae Mckeon MD [address] [facility] [address] [place] [address] Scheduled Discharge Disposition: Discharged to home or self care documented as of this encounter Visit Diagnoses Not on filedocumented in this encounter
--- OUTSIDE RECORDS SUMMARY | 2023-11-14 09:23 | XMS_ITS | Clinical Summary ---
Author Organization [facility] Address [place], [place] [address] Care Team Providers Care Farm Instructor Name Role Phone Daysi Pires Primary Care [...] disease 09/24/2022 Overview (09/24/2022): HD started at [facility] 09/16/22 HTN (hypertension) 09/15/2022 Acute on chronic kidney failure 09/15/2022 Hypertensive emergency 09/15/2022 DIABETES 01/27/2002 Encounters Date Type Department Care Team Description 10/31/2023 11:35 AM CDT Office Visit [facility] [address] [place] [address] Ning Lopez PA Hospital F/U (Slowly feeling better ) 10/31/2023 Travel 10/26/2023 Patient Outreach [facility] [address] [place] [address] Laura Reyes, RN Primary RN Care Management (Lace 56); Hospital F/U 10/23/2023 5:44 PM CDT - 10/25/2023 5:30 AM CDT Hospital Encounter [facility] [address] [place] [address] Aiden Babin MD [facility] Hospitalists Of Eyad Wallace MD [place], TAMMIE Lyles Lower extremity edema (Primary Dx); ESRD (end stage renal disease) (HC); HTN (hypertension) Discharge Disposition: Home Self Care 10/23/2023 Travel 10/19/2023 Nurse Triage [facility] [address] [place] [address] Daysi Pires PA Chest Pain from Last [...] Description 11/30/2023 2:40 PM CDT Office Visit [facility] [place] [address] Daysi Pires PA [address] [place] [address] Health Maintenance Due Date Last Done Comments [...] - 100 mg/dL 10/25/2023 12:33 PM CDT [facility] Blood BLOOD SPECIMEN / Unknown 10/25/2023 12:32 PM CDT 10/25/2023 12:33 PM CDT Sean CHO [facility]STR[facility] [address] [place] [address], * ECHO TTE COMPLETE WO CONTRAST (10/24/2023 11:01 AM CDT) AORTIC VALVE MEAN PG 4 mmHg LVEDD 5.2 cm EJECTION FRACTION 55 - 60% Anatomical Region Laterality Modality Ultrasound 10/24/2023 9:54 AM CDT Narrative 10/24/2023 11:09 AM CDT ECHOCARDIOGRAM MACO STEIN ? Accession#: ?? [id number] : ?1980 43 years Study Date: ?? 10/24/2023 9:54:07 AM Gender: M ?BP: ? 180/83 mmHg Height: 175.00 cm ?BSA: ?2.10 m? ? ? Weight: 95.00 kg ? Tech: ? CJG ? Referring MD: EYAD WALLACE Site: ? [facility] Reading Location: [facility] IP Patient Location: [...] detected. Comparison Compared to prior exam of STITCH SEPARATOR, there has been no significant change. Chamber [...] . This study was interpreted by an [facility] accredited facility. ??Final ?? Procedure Note Alex Weaver MD - 10/24/2023 ECHOCARDIOGRAM MACO STEIN : 1980 43 years Study Date: 10/24/2023 9:54:07 AM Gender: M BP: 180/83 mmHg Height: 175.00 cm BSA: 2.10 m? ? ? Weight: 95.00 kg Tech: [facility] Referring MD: EYAD WALLACE Site: [facility] Patient Location: Inpatient. Procedure: 2D w/ Contrast, [...] detected. Comparison Compared to prior exam of STITCH SEPARATOR, there has been no significant change. Chamber [...] . This study was interpreted by an [facility] accredited facility. Final Eyad Wallace MD ECHO ORD * HBSAG (HBS) (10/24/2023 7:01 AM CDT) HBSAG Nonreactive Nonreactive 10/24/2023 10:42 AM CDT [facility] Blood BLOOD SPECIMEN / Unknown Venipuncture / Unknown 10/24/2023 7:01 AM CDT 10/24/2023 8:32 AM CDT Rabia Husain MD SEND OUT S Performing Organization Address [facility] Co de Phone Number [facility] [address] [address], [place] * (ABNORMAL) Electrolyte panel AM (10/24/2023 7:01 AM CDT) SODIUM 134(L) 136 - 145 mmol/L 10/24/2023 8:56 AM CDT [facility] POTASSIUM 4.1 3.5 - 5.1 mmol/L 10/24/2023 8:56 AM CDT [facility] CHLORIDE 94(L) 98 - 107 mmol/L 10/24/2023 8:56 AM CDT [facility] CO2,TOTAL 28 22 - 29 mmol/L 10/24/2023 8:56 AM CDT [facility] ANION GAP 12 5 - 18 10/24/2023 8:56 AM CDT [facility] Blood BLOOD SPECIMEN / Unknown Venipuncture / Unknown 10/24/2023 7:01 AM CDT 10/24/2023 8:32 AM CDT Eyad Wallace MD CHEMISTRY Performing Organization Address [facility]/ZIP Co de Phone Number [facility] [address] [address], [place] * [place] VENOUS LOWER EXTREMITY BILATERAL [...] 6-15 ng/L ng/L 10/23/2023 7:35 PM CDT [facility] Blood BLOOD SPECIMEN / Unknown Butterfly / Unknown 10/23/2023 6:57 PM CDT 10/23/2023 7:09 PM CDT Narrative [facility] - 10/23/2023 7:35 PM CDT [...] department patient population. Aiden Babin MD CHEMISTRY [facility] [address] [place] [address], * (ABNORMAL) CBC W PLT NO DIFF (10/23/2023 6:57 PM CDT) [facility] WHITE BLOOD COUNT 6.3 4.5 - 11.0 thou/cu mm 10/23/2023 7:15 PM CDT [facility] RED BLOOD COUNT 2.63(L) 4.30 - 5.90 mil/cu mm 10/23/2023 7:15 PM CDT [facility] HEMOGLOBIN 8.7(L) 13.5 - 17.5 g/dL 10/23/2023 7:15 PM CDT [facility] HEMATOCRIT 25.0(L) 37.0 - 53.0 % 10/23/2023 7:15 PM CDT [facility] MCV 95 80 - 100 fL 10/23/2023 7:15 PM CDT [facility] MCH 33.1 26.0 - 34.0 pg 10/23/2023 7:15 PM CDT [facility] MCHC 34.8 32.0 - 36.0 g/dL 10/23/2023 7:15 PM CDT [facility] RDW 13.2 11.5 - 15.5 % 10/23/2023 7:15 PM CDT [facility] PLATELET COUNT 100(L) 140 - 440 thou/cu mm 10/23/2023 7:15 PM CDT [facility] MPV 12.0(H) 6.5 - 11.0 fL 10/23/2023 7:15 PM CDT [facility] NRBC 0.0 % 10/23/2023 7:15 PM CDT [facility] ABS NRBC 0.0 thou /cu mm 10/23/2023 7:15 PM CDT [facility] Blood BLOOD SPECIMEN / Unknown Butterfly / Unknown 10/23/2023 6:57 PM CDT 10/23/2023 7:09 PM CDT Aiden Babin MD HEMATOLOGY [facility] [address] [place] [address], * (ABNORMAL) HEPATIC FUNCTION PANEL (10/23/2023 6:57 PM CDT) ALBUMIN 3.7(L) 4.0 - 4.9 g/dL 10/23/2023 7:35 PM CDT [facility] PROTEIN,TOTAL 6.9 6.0 - 8.0 g/dL 10/23/2023 7:35 PM CDT [facility] BILIRUBIN,TOTAL 0.5 0.0 - 1.2 mg/dL 10/23/2023 7:35 PM CDT [facility] BILIRUBIN,DIRECT 0.2 0.0 - 0.2 mg/dL 10/23/2023 7:35 PM CDT [facility] BILIRUBIN,INDIRE CT 0.3 0.2 - 0.8 mg/dL 10/23/2023 7:35 PM CDT [facility] ALK PHOSPHATASE 74 40 - 129 IU/L 10/23/2023 7:35 PM CDT [facility] ALT (SGPT) 7(L) 10 - 50 IU/L 10/23/2023 7:35 PM CDT [facility] AST (SGOT) 17 10 - 50 IU/L 10/23/2023 7:35 PM CDT [facility] Blood BLOOD SPECIMEN / Unknown Butterfly / Unknown 10/23/2023 6:57 PM CDT 10/23/2023 7:09 PM CDT Aiden Babin MD CHEMISTRY [facility] [address] [place] [address], * (ABNORMAL) BASIC METABOLIC PANEL (10/23/2023 6:57 PM CDT) SODIUM 131(L) 136 - 145 mmol/L 10/23/2023 7:35 PM CDT [facility] POTASSIUM 4.1 3.5 - 5.1 mmol/L 10/23/2023 7:35 PM CDT [facility] CHLORIDE 90(L) 98 - 107 mmol/L 10/23/2023 7:35 PM CDT [facility] CO2,TOTAL 29 22 - 29 mmol/L 10/23/2023 7:35 PM CDT [facility] ANION GAP 12 5 - 18 10/23/2023 7:35 PM CDT [facility] GLUCOSE 366(H) 70 - 99 mg/dL 10/23/2023 7:35 PM CDT [facility] CALCIUM 8.7 8.6 - 10.0 mg/dL 10/23/2023 7:35 PM CDT [facility] BUN 29(H) 6 - 20 mg/dL 10/23/2023 7:35 PM CDT [facility] CREATININE 6.62(H) 0.70 - 1.20 mg/dL 10/23/2023 7:35 PM CDT [facility] BUN/CREAT RATIO 4(L) 10 - 20 7:35 PM CDT [facility] eGFR 10(L) >90 mL/min/1.7 3m2 10/23/2023 7:35 PM CDT [facility] Comment:As of 2021, eG FR [...] 7:09 PM CDT Aiden Babin MD CHEMISTRY [facility] [address] [place] [address], * EKG 12 LEAD (10/23/2023 5:34 PM CDT) Interpretation Normal sinus rhythm Normal ECG Compared to ekg of 3 No Change BEYOND NOW Ventricular Rate 93 BPM BEYOND NOW Atrial Rate 93 BPM BEYOND NOW P-R Interval 170 ms BEYOND NOW QRS Duration 80 ms BEYOND NOW QT 362 ms BEYOND NOW QTc 450 ms BEYOND NOW P [place] 29 degrees BEYOND NOW R [place] 56 degrees BEYOND NOW T [place] 68 degrees BEYOND NOW 10/23/2023 5:34 PM CDT 10/23/2023 11:22 PM CDT Aiden Babin MD EKG ORD BEYOND NOW [place], [place] * (ABNORMAL) LIPID PANEL (12/06/2021 3:00 PM CDT) CHOLESTEROL,TOTAL 163 100 - 199 mg/dL 12/07/2021 3:15 PM CDT [facility] TRIGLYCERIDES 272(H) <150 mg/dL 12/07/2021 3:15 PM T [facility] HDL CHOLESTEROL 23(L) >40 mg/dL 3:15 PM CDT [facility] NON-HDL CHOLESTEROL 140 <145 mg/dl 12/07/2021 3:15 PM T [facility] CHOL/HDL RATIO 7.09(H) <4.50 12/07/2021 3:15 PM T [facility] LDL CHOLESTEROL 86 <=130 mg/dL 12/07/2021 3:15 PM T [facility] VLDL CHOLESTEROL 54(H) <=30 mg/dL 12/07/2021 3:15 PM T [facility] PROVIDER ORDERED STATUS RANDOM 12/07/2021 3:15 PM T [facility] Blood BLOOD SPECIMEN / Unknown 12/06/2021 3:00 PM CDT 12/07/2021 2:54 PM CDT Aidee Sher STITCH SEPARATOR CHEMISTRY [facility] [address] [place] [address] from Last 3 Months or Most Recently Relevant to Health Maintenance Advance Directives Documents on File Type Date Recorded Patient Platform Consultant Expl anation Healthcare Directive 09/26/2022 023 * Full Code (Latest Code Status on File) Date Activated Date Inactivated Comments 10/23/2023 8:52 PM 10/26/2023 1:29 AM Question Answer Comments Code Status Discussion: Reviewed Preferences * Full Code Date Activated Date Inactivated Comments 09/15/2022 5:47 PM 09/27/2022 6:10 PM Question Answer Comments Code Status Discussion: Reviewed Preferences Care Teams Farm Instructor Relationship Specialty Start Date End Date Daysi Pires [place] [address] [address] PCP - General Physician Public Relations 06/04/23
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
--- OUTSIDE RECORDS SUMMARY | 2023-11-14 09:23 | XMS_ITS | Encounter Summary ---
Author Organization [facility] [place] [place] Address [address] [facility] [address] [place] [address] Care Team Providers Care Museum Tour Guide Name Role Phone Unavailable Primary Care Provider Unavailabl e Encounter Details Date Type Department Care Team (Late st Contact Info) Description 08/15/2023 Orders Only [facility] [place] [address] [place] [address] Julito Cortez MD [address] [place] [address] Social History Tobacco Use Types [...] SHIREEN Lab Results (08/15/2023) eKt/V Gotch 1.40 [facility] e Center nPCR_HD 1.21 [facility] WSTDKT/V 2.5 [facility] Center eKt/V ([place]) 1.36 [facility] Center spKt/V Gotch 1.63 [facility] eNPCR 1.12 [facility] spKt/V (Daugirdas II) 1.57 [facility] PCR 79.69 [facility] eKdrt/V 1.40 [facility] 08/15/2023 08/15/2023 Shireen Ordering Provider LAB BLOOD ORDERABLE S [facility] Contact Performing lab Unknown, [place] [...] 08/17/2023 Unless otherwise specified, test(s) performed at: [facility], [address] [place] [address], [place] [address] BILINGUAL COUNTER SALES RETAIL: Gurdeep Ricardo M.D., Ph.D For any questions, [...] MD LAB BLOOD ORDERABLES Performing Organization Address [facility]/ZIP Co de Phone Number [facility] See order comments or contact performing lab Unknown, [place] * POST CHEMISTRY (08/15/2023) BUN Post Dialysis 18 6 - 19 mg/dL [facility] 08/15/2023 08/17/2023 8:5 1 AM CDT Narrative [facility] - 08/17/2023 Unless otherwise specified, test(s) performed at: [facility], [address] [place] [address], [place] [address] BILINGUAL COUNTER SALES RETAIL: Gurdeep Ricardo M.D., Ph.D For any questions, please call customer service at FREQUENCY:MONTHLY Resulting Agency Comment Specimen source: Plasma Julito Cortez MD LAB BLOOD ORDERABLES Performing Organization Address [facility] Co de Phone Number [facility] [...] 08/15/2023 08/17/2023 11: 16 AM CDT Narrative [facility] - 08/17/2023 Unless otherwise specified, test(s) performed at: [facility], [address] [place] [address], [place] [address] BILINGUAL COUNTER SALES RETAIL: Gurdeep Ricardo M.D., Ph.D For any questions, please call customer service at FREQUENCY:MONTHLY Resulting Agency Comment Specimen source: Serum Julito Cortez MD LAB BLOOD ORDERABLES [facility] See order comments or contact performing lab Unknown, [place] * (ABNORMAL) [facility] Chemistry (08/15/2023) PTH 229(H) 16 - 80 pg/mL [facility] 08/15/2023 08/17/2023 8:2 7 AM CDT Narrative [facility] [employer] [facility] - 08/17/2023 Unless otherwise specified, test(s) performed at: [facility], [address] [place] [address], [place] [address] BILINGUAL COUNTER SALES RETAIL: Gurdeep Ricardo M.D., Ph.D For any questions, please call customer service at FREQUENCY:MONTHLY Resulting Agency Comment Specimen source: Plasma Julito Cortez MD LAB BLOOD ORDERABLES [facility] See order comments or contact performing lab Unknown, [place] documented in this encounter Visit Diagnoses Not on filedocumented in this encounter
--- OUTSIDE RECORDS SUMMARY | 2023-11-14 09:23 | XMS_ITS | Encounter Summary ---
Author Organization [facility] [place] [place] Address [address] [place] [address] Care Team Providers Care Circular Knitter Name Role Phone Unavailable Primary Care Provider Unavailabl e Encounter Details Date Type Department Care Team (Late st Contact Info) Description 08/22/2023 Orders Only [facility] [place] [address] [place] [address] Julito Cortez MD [address] [place] [address] Social History Tobacco Use Types [...] (08/22/2023) Hemoglobin 10.1(L) 14.0 - 18.0 g/dL [facility] Hemoglobin x 3 30.3(L) 42.0 - 54.0 % [facility] 08/22/2023 08/23/2023 4:4 8 AM CDT Narrative [facility] - 08/23/2023 Unless otherwise specified, test(s) performed at: [facility], [address] [place] [address], [place] [address] HALF SOLE FITTER: Gurdeep Ricardo M.D., Ph.D For any questions, please call customer service at FREQUENCY:OTHER Resulting Agency Comment Specimen source: Blood Julito Cortez MD LAB BLOOD ORDERABLES [facility] See order comments or contact performing lab Unknown, [place] documented in this encounter Visit Diagnoses Not on filedocumented in this encounter
--- OUTSIDE RECORDS SUMMARY | 2023-11-14 09:23 | XMS_ITS | Clinical Summary ---
Author Organization [facility] Address [address] [facility] [address] [place] [address] Care Team Providers Care Physician Office Assistant Name Role Phone No, Pcp Primary Care Provider [phone] Encounters Date Type Department Care Team Description 11/08/2023 Orders Only [facility] [place] [address] [facility] [address] [place] [phone] Julito Cortez MD 11/03/2023 Orders Only [facility] [place] [address] [facility] [address] [place] [phone] Julito Cortez MD 09/27/2023 Orders Only [facility] [address] [facility] [address] [place] [address] Julito Cortez MD 09/26/2023 Treatment [facility] [place] [address] [place] [address] Julito Cortez MD 09/10/2023 Orders Only [facility] [address] [facility] [address] [place] [address] Julito Cortez MD 08/31/2023 Orders Only [facility] [place] [address] [facility] [address] [place] [address] Julito Cortez MD 08/29/2023 Orders Only [facility] [address] [place] [address] Julito Cortez MD 08/22/2023 Orders Only [facility] [place] [address] [facility] [address] [place] [address] Julito Cortez MD 08/15/2023 Orders Only [facility] [place] [address] [place] [address] Julito Cortez MD from Last 3 Months [...] Date/Time Associated Diagnosis Comments CHEMISTRY Routine 11/08/2023 [facility] LAB RESULTS Routine 11/03/2023 HEMATOLOGY Routine 11/03/2023 HD KINETICS Routine 11/03/2023 [...] 08/15/2023 CHEMISTRY Routine 08/15/2023 CHEMISTRY Routine 08/15/2023 from Last 3 Months Results * (ABNORMAL) [facility] Chemistry (11/08/2023) Only the most recent of10 resultswithin the time period is included. Potassium 7.0(H) 3.5 - 5.1 mEq/L [facility] Comment: Verified by repeat analysis. 11/08/2023 11/10/2023 8:5 8 AM CDT Narrative [facility] - 11/10/2023 Unless otherwise specified, test(s) performed at: [facility], [address] [place] [address] BOTTOM SPRAYER: Gurdeep Ricardo M.D., Ph.D For any questions, please call customer service at FREQUENCY:OTHER Resulting Agency Comment Specimen source: Serum Julito Cortez MD LAB BLOOD ORDERABLES Performing Organization Address [facility] de Phone Number [facility] See order comments or contact performing lab Unknown, [place] * (ABNORMAL) HD KINETICS (11/03/2023) Only the most recent of4 resultswithin the time period is included. % Urea Reduction 48(L) 65 - 80 % [facility] 11/03/2023 11/06/2023 10: 47 AM CDT Narrative Resulting Agency Comment Specimen source: Plasma Julito Cortez MD LAB BLOOD ORDERABLES Performing Organization Address [facility] de Phone Number [facility] See order comments or contact performing lab Unknown, [place] * (ABNORMAL) POST CHEMISTRY (11/03/2023) Only the most recent of4 resultswithin the time period is included. BUN Post Dialysis 23(H) 6 - 19 mg/dL [facility] 11/03/2023 11/06/2023 10: 47 AM CDT Narrative [facility] - 11/06/2023 Unless otherwise specified, test(s) performed at: [facility], [address] [place] [address], [place] [address] BOTTOM SPRAYER: Gurdeep Ricardo M.D., Ph.D For any questions, please call customer service at FREQUENCY:MONTHLY Resulting Agency Comment Specimen source: Plasma Julito Cortez MD LAB BLOOD ORDERABLES Performing Organization Address [facility] de Phone Number [facility] See order comments or contact performing lab Unknown, [place] * (ABNORMAL) HEMATOLOGY (11/03/2023) Only the most recent of6 resultswithin the time period is included. Neutrophils 54.3 40.0 - 75.0 % [facility] [...] 11/03/2023 11/06/2023 10: 37 AM CDT Narrative [facility] - 11/06/2023 Unless otherwise specified, test(s) performed at: [facility], [address] [place] [address], [place] [address] BOTTOM SPRAYER: Gurdeep Ricardo M.D., Ph.D For any questions, please call customer service at FREQUENCY:MONTHLY Resulting Agency Comment Specimen source: Blood Julito Cortez MD LAB BLOOD ORDERABLES [facility] See order comments or contact performing lab Unknown, [place] * [facility] Results (11/03/2023) Only the most recent of4 resultswithin the time period is included. Simple KT/V (HHD and NXSTAGE) 0.65 [facility] SPKT/V DAUGIRDAS II (HHD & NXSTAGE) 0.81 [facility] WSTDKT/V 2.6 [facility] 11/03/2023 11/03/2023 Shireen Ordering Provider LAB BLOOD ORDERABLE S [facility] Contact Performing lab Unknown, [place] * (ABNORMAL) SPECIAL CHEMISTRY (08/31/2023) Vitamin B-12 3,903(H) 211 - 911 pg/mL [facility] Comment: Verified by repeat analysis. Vitamin D, 25-OH, Total 35.2 30.0 - 100.0 ng/mL [facility] Comment: Please Note: ??Effective March 06, 2021, the methodology for this test has changed to the SIEMENS ATELLICA method 08/31/2023 09/01/2023 10: 25 AM CDT Narrative Resulting Agency Comment Specimen source: Serum Julito Cortez MD LAB BLOOD BANK TEST ORDERABLES Performing Organization Address [facility] de Phone Number [facility] See order comments or contact performing lab Unknown, [place] * TRACE ELEMENTS (08/31/2023) Aluminum 5 0 - 10 mcg/L [facility] Comment: This test was developed and its performance characteristics determined by [facility]. It has not been cleared or approved by the FDA. The laboratory is regulated under CLIA as qualified to perform high complexity testing. This test is used for clinical purposes. It should not be regarded as investigational or for research. 08/31/2023 09/01/2023 10: 06 AM CDT Narrative [facility] - 09/01/2023 Unless otherwise specified, test(s) performed at: [facility], [address] [place] [address], [place] [address] BOTTOM SPRAYER: Gurdeep Ricardo M.D., Ph.D For any questions, please call customer service at FREQUENCY:MONTHLY Resulting Agency Comment Specimen source: Serum Julito Cortez MD LAB BLOOD ORDERABLES Performing Organization Address [facility] Co de Phone Number [facility] See order comments or contact performing lab Unknown, [place] from Last 3 Months Care Teams Physician Office Assistant Relationship Specialty Start Date End Date No, Pcp PCP - General Internal Medicine 09/10/23
--- OUTSIDE RECORDS SUMMARY | 2023-11-14 09:23 | XMS_ITS | Encounter Summary ---
Author Organization [facility] [place] [place] Address [address] [facility] [address] [place] [address] Care Team Providers Care Salary And Wage Administrator Name Role Phone Unavailable Primary Care Provider Unavailabl e Encounter Details Date Type Department Care Team (Late st Contact Info) Description 08/31/2023 Orders Only [facility] [place] [address] [place] [address] Julito Cortez MD [address] [place] [address] Social History Tobacco Use Types [...] (08/31/2023) Simple KT/V (HHD and NXSTAGE) 0.76 [facility] SPKT/V DAUGIRDAS II (HHD & NXSTAGE) 0.81 [facility] WSTDKT/V 2.0 [facility] 08/31/2023 08/31/2023 Shireen Ordering Provider LAB BLOOD ORDERABLE S [facility] Contact Performing lab Unknown, [place] * TRACE ELEMENTS (08/31/2023) Aluminum 5 0 - 10 mcg/L [facility] Comment: This test was developed and its performance characteristics determined by [facility]. It has not been cleared or approved by the FDA. The laboratory is regulated under CLIA as qualified to perform high complexity testing. This test is used for clinical purposes. It should not be regarded as investigational or for research. 08/31/2023 09/01/2023 10: 06 AM CDT Narrative [facility] - 09/01/2023 Unless otherwise specified, test(s) performed at: [facility], [address] [place] [address], [place] [address] CLINICAL DIRECTOR: Gurdeep Ricardo M.D., Ph.D For any questions, please call customer service at FREQUENCY:MONTHLY Resulting Agency Comment Specimen source: Serum Julito Cortez MD LAB BLOOD ORDERABLES [facility] See order comments or contact performing [...] 08/31/2023 09/01/2023 11: 28 AM CDT Narrative [facility] - 09/01/2023 Unless otherwise specified, test(s) performed at: [facility], [address] [place] [address] CLINICAL DIRECTOR: Gurdeep Ricardo M.D., Ph.D For any questions, please call customer service at FREQUENCY:MONTHLY Resulting Agency Comment Specimen source: Blood Julito Cortez MD LAB BLOOD ORDERABLES Performing Organization Address [facility] de Phone Number [facility] [employer] [facility] See order comments or contact performing lab Unknown, [place] * (ABNORMAL) [facility] (08/31/2023) PTH 102(H) 16 - 80 pg/mL [facility] 08/31/2023 09/01/2023 10: 43 AM CDT Narrative [facility] - 09/01/2023 Unless otherwise specified, test(s) performed at: [facility], [address] [place] [address], [place] [address] CLINICAL DIRECTOR: Gurdeep Ricardo M.D., Ph.D For any questions, please call customer service at FREQUENCY:MONTHLY Resulting Agency Comment Specimen source: Plasma Julito Cortez MD LAB BLOOD ORDERABLES Performing Organization Address [facility]/ZIP Co de Phone Number [facility] See order comments or contact performing lab Unknown, [place] * (ABNORMAL) HD KINETICS (08/31/2023) Pathologist [facility] % Urea Reduction 53(L) 65 - 80 % [facility] 08/31/2023 09/01/2023 10: 34 AM CDT Narrative Resulting Agency Comment Specimen source: Plasma Julito Cortez MD LAB BLOOD ORDERABLES Performing Organization Address [facility] de Phone Number [facility] See order comments or contact performing lab Unknown, [place] * (ABNORMAL) POST CHEMISTRY (08/31/2023) [facility] BUN Post Dialysis 20(H) 6 - 19 mg/dL [facility] 08/31/2023 09/01/2023 10: 34 AM CDT Narrative [facility] - 09/01/2023 Unless otherwise specified, test(s) performed at: [facility], [address] [place] [address], [place] [address] CLINICAL DIRECTOR: Gurdeep Ricardo M.D., Ph.D For any questions, please call customer service at FREQUENCY:MONTHLY Resulting Agency Comment Specimen source: Plasma Julito Cortez MD LAB BLOOD ORDERABLES Performing Organization Address [facility] de Phone Number [facility] See order comments or contact performing lab Unknown, [place] * (ABNORMAL) SPECIAL CHEMISTRY (08/31/2023) [facility] Vitamin B-12 3,903(H) 211 - 911 pg/mL [...] BLOOD BANK TEST ORDERABLES Performing Organization Address [facility]/ZIP Co de Phone Number [facility] See order comments or [...] 08/31/2023 09/01/2023 10: 25 AM CDT Narrative [facility] - 09/01/2023 Unless otherwise specified, test(s) performed at: [facility], [address] [place] [address], [place] [address] CLINICAL DIRECTOR: Gurdeep Ricardo M.D., Ph.D For any questions, please call customer service at FREQUENCY:MONTHLY Resulting Agency Comment Specimen source: Serum Julito Cortez MD LAB BLOOD ORDERABLES [facility] See order comments or contact performing lab Unknown, [place] documented in this encounter Visit Diagnoses Not on filedocumented in this encounter
--- OUTSIDE RECORDS SUMMARY | 2023-11-14 09:24 | XMS_ITS | Encounter Summary ---
Author Organization [facility] [place] [place] Address [address] [place] [address] Care Team Providers Care Manager Sustainability Name Role Phone Unavailable Primary Care Provider Unavailabl e Encounter Details Date Type Department Care Team (Late st Contact Info) Description 08/13/2023 Treatment [facility] [place] [address] [place] [address] Julito Cortez MD [address] [facility] [address] [place] [address] Social History Tobacco Use Types [...] Name: Maco Stein : 1980 Chart #: [id number] Sex: M This patient was personally seen [...] PM ) BP (sit): 188/99 AP(-) / COMPENSATOR WORKER: 188/204 Pulse: 78 Chairside data as of [...] 06/04/2023 Access Flow > 1999 [id number] 1974 RIM BUSTER: Julito Cortez MD LOCATION: [phone] SCHEDULE: M-W- 2nd Shift EDW: kg. DIALYZER: [...] or CP. has appt next week at [facility] Txp. 06/15/23: Feels well. no concerns. cost was a barrier to getting the Lokelma, hasn't obtained it,yet. 05/01/23: Feels well. no SOB or CP. No N/v/d. Stable wt. BP's are better. 04/10/23: Feels well, 2nd day with 2 16 g needles in. no SOB or CP. 03/01/23: HD going well. but having L AVF/arm discomfort/numbness, worse on the run. has appt at [facility] next Tu with Dr. Solorzano. fingers cool but not cold, no weakness, no pain. Interested in HHD and going to for education tomorrow. referred for txp to [facility]. 01/24/23: Feels well, got his AVF at [facility] yesterday. no arm pain. no SOB or CP. 12/25/22: BP is better after lowering his meds. still has ringing in his ears at end of every run, and leaving about EDW and no edema or SOB. Going for AVF soon. still can't do Txp eval until insurance is confirmed. 11/24/22: Feels fine today. No SOB or CP. hasn't been to [facility], yet. no N/V. 11/01/22: my second time seeing him. feels better. has had some tinnitus. BP is high but no MORA, blurry vision, CP or SOB. appetite is better. Taking losartan 50 mg/d. 10/02/22: My first time meeting him. his second time here, started here 09/29. Came from [facility] where he initiated. Feels ok today. no SOB or CP Advanced Practitioner Subjective NEUROLOGICAL PHYSIOTHERAPIST 08/01/2023:Seen on dialysis. Doing well. No SOB, or chest pain reported. Arm access working well; no reported issues. BP slightly elevated. Leaving close to EDW. Potassium improved. Continue plan ofcare. NEUROLOGICAL PHYSIOTHERAPIST 06/06/2023: Patient seen on dialysis. Doing well. [...] mouth twice a day 07/13/2023 RenaPlex-D (vit b,n-ha-hhbk-selen-vit d3-e) 800 mcg-12.5 mg-2,000 unit tablet Take [...] of access: Fistula Surgeon - IR at [facility] Staff and patient report access is working well. Send to Surgeon for access creation. 04/10/23: using AVF d #2 today. 03/01/23: may have steal, going to see surgeon 03/06/23 01/24/23 L AVF at [facility] 01/23/23 (see OP note) 12/25/22: has [facility] appt upcoming 11/01/22: needs AVF eval at [facility] 10/02/22: needs AVF eval at [facility] Anemia Assessment HEMOGLOBIN (G/DL) IN BLOOD [...] same bicarbonate in dialysate. 08/13/23: Labs pending NEUROLOGICAL PHYSIOTHERAPIST 02/08/2023: Educated on low potassium foods. Bone [...] at goal. Intact PTH is at goal. General Cleaner will adjust binders and vitamin D per protocol and continue to provide dietary education. 08/13/23: Labs pending Cardiovascular Assessment Blood pressures reviewed and are acceptable. Intradialytic weight gains are appropriate. Estimated dry weight is appropriate. Continue same cardiovascular medications. NEUROLOGICAL PHYSIOTHERAPIST 05/11/2023 decreased to 95.5 kg 03/01/23: increase 96 12/25/22: increase 93.5 11/24/22: increase 92 11/01/22: increase losartan to 100 mg q evening. next would add CCB, edw 93.5 NEUROLOGICAL PHYSIOTHERAPIST 10/09/2022: Had been still taking hydralazine; not started losartan. Instructed to make change 10/02/22: d/c hydralazine, add Losartan 50 mg q evening. Transplant Status: Patient has been referred. Center - [facility] 04/10/23: got his LEA in Jan and was referred to [facility], still waiting to hear back 11/24/22: not [...]
--- OUTSIDE RECORDS SUMMARY | 2023-11-14 09:24 | XMS_ITS | Encounter Summary ---
Author Organization [facility] Address [address] [place] [address] Care Team Providers Care Operations Support Manager Name Role Phone Unavailable Primary Care Provider Unavailabl e Encounter Details Date Type Department Care Team (Late st Contact Info) Description 08/08/2023 Orders Only [facility] [address] [place] [address] Julito Cortez MD [address] [place] [address] Social History Tobacco Use Types [...] (08/08/2023) Hemoglobin 10.2(L) 14.0 - 18.0 g/dL [facility] Hemoglobin x 3 30.6(L) 42.0 - 54.0 % [facility] 08/08/2023 08/09/2023 3:5 6 AM CDT Narrative [facility] - 08/09/2023 Unless otherwise specified, test(s) performed at: [facility], [address] [place] [address], [place] [id number] [address] [employer] SUPERVISOR: Gurdeep Ricardo M.D., Ph.D For any questions, please call customer service at FREQUENCY:OTHER Resulting Agency Comment Specimen source: Blood Julito Cortez MD LAB BLOOD ORDERABLES [facility] See order comments or contact performing lab Unknown, [place] documented in this encounter Visit Diagnoses Not on filedocumented in this encounter
== END 2023-11-14 09:21 | disposition home or self-care (01) ==
LOC: WOUND 09:20
PROVIDERS: PCP Internal Medicine; Visit Provider Surgery
DX: E11.621 Type 2 diabetes mellitus with foot ulcer (principal); E11.40 Type 2 diabetes mellitus with diabetic neuropathy, unspecified; L97.522 Non-pressure chronic ulcer of other part of left foot with fat layer exposed; E11.22 Type 2 diabetes mellitus with diabetic chronic kidney disease; N18.6 End stage renal disease; Z99.2 Dependence on renal dialysis
CPT/HCPCS: 97597

== ENCOUNTER 2023-11-21 09:18 | Outpatient (CLI) | payer MEDICAID, SELFPAY ==
--- OUTSIDE RECORDS SUMMARY | 2023-11-21 09:20 | XMS_ITS | Clinical Summary ---
Author Organization [facility] Address [address] [place] [phone] Phone Care Team Providers Care International Relations Teacher Name Role Phone Unavailable Primary Care Provider Unavailabl e Source Comments [employer] is fully rolled out on [employer]. Last update 07/31/08.[facility] Allergies Active Allergy Reactions Criticality Noted Date [...] to chronic kidney disease, on chronic dialysis ([facility]) 10/13/2022 Anxiety 10/13/2022 HTN (hypertension) 09/15/2022 Diabetes mellitus ([facility]) 01/27/2002 Encounters Date Type Department Care Team Description 11/21/2023 Abstract Transplant Program [address] [place] [address] Chinyere Valencia RN 11/20/2023 2:30 PM CDT Nurse Only Transplant Program [address] [place] [address] Neva Carbajal MBBS Rn, [facility]-Pre Recipient Chronic kidney disease (Primary Dx) Discharge Disposition: Discharged to home or self care 11/20/2023 1:30 PM CDT Office Visit Transplant Program [address] [place] [address] Neva Carbajal MBBS Gjesvold, Donna E, RD, LD Encounter for pre-transplant evaluation for kidney transplant (Primary Dx) Discharge Disposition: Discharged to home or self care 11/20/2023 12:29 PM CDT Hospital Encounter [facility] XRAY [address] [place] [address] Blayne Quiroz MD Arrived 11/20/2023 12:08 PM CDT Hospital Encounter [facility] CT [address] [place] [address] Blayne Quiroz MD Arrived 11/20/2023 9:57 AM CDT - 11/20/2023 11:59 PM CDT Hospital Encounter [facility] EKG [address] [place] [address] Blayne Quiroz MD Type Photography Supervisor, Ekg Discharge Disposition: Discharged to home or self care 11/20/2023 9:55 AM CDT Hospital Encounter [facility] Echo Lab [address] [place] [address] Blayne Quiroz MD Alvarado, Michelle, TILE HELPER Jerel Pena RN 11/20/2023 Travel 11/01/2023 Documentation Only Transplant Program [address] [place] [address] Williams Lindquist Transplant Medical Assistant 10/03/2023 Documentation Only Transplant Program [address] [place] [address] Lexa Williams, Transplant Medical Assistant 09/26/2023 Abstract Transplant Program [address] [place] [address] Lexa Williams, Transplant Medical Assistant 09/03/2023 Documentation Only Transplant Program [address] [place] [address] Williams Lindquist Transplant Medical Assistant from Last 3 Months Social History Tobacco Use Types Packs/Day Years Used Date Smoking Tobacco: Never Assessed Sex and Gender Information Value Date Recorded Sex Assigned at Not on file Gender Identity Not on file Sexual Orientation Not on file Last Filed Vital Signs Vital Sign Reading Time Taken Comments Blood Pressure 192/76 11/20/2023 11:37 AM CDT Pulse 95 11/20/2023 11:37 AM CDT Temperature - - Respiratory Rate - - Oxygen Saturation - - Inhaled Oxygen Concentration - - Weight 91 kg (200 lb 9.6 oz) 11/20/2023 12:53 PM CDT Height 170.2 cm (5' 7) 11/20/2023 12:53 PM CDT Body Mass Index 31.42 11/20/2023 12:53 PM CDT Plan of Treatment Upcoming Encounters Date Type Department Care Team (Late st Contact Info) Description 12/18/2023 11:00 AM CDT Office [facility] Cardiology Clinic [address] [address] Denae Mckeon MD [address] [place] [address] Scheduled Discharge Disposition: Discharged to home or [...] (1 - Tdap) 10/14/1986 Periodontal Maintenance 10/14/1993 PREVENTATIVE VISIT 10/14/1997 HEALTH MAINTENANCE PROTOCOL 10/14/1998 Diabetes HGB A1C Q 3 Months (Goal <7) 09/03/2023 06/04/2023, 06/04/2023, 09/15/2022, Additional history exists Imm: COVID-19 ( season) 2023 Imm: Flu (#1) 10/28/2023 05/18/2023 Lipid Screening 12/06/2026 12/06/2021, 05/1 02/2021, 04/07/2020 Imm: Zoster (1 of 2) 10/14/2029 HIV Screening Completed 11/20/2023 Imm: HPV Aged Out No longer eligi [...] on patient's age to complete this topic Procedures Procedure Name Priority Date/Time Associated Diagnosis Comments PC HEP B CORE ANTIBODY STAT 11/20/2023 1:20 PM CDT Chronic kidney disease RUBEOLA ANTIBODY (MEASLES IMMUNE STATUS) STAT 11/20/2023 1:20 PM CDT Chronic kidney disease VARICELLA ZOSTER IGG STAT 11/20/2023 1:20 PM CDT Chronic kidney disease PHOSPHORUS STAT 11/20/2023 1:20 PM CDT Chronic kidney disease PC HIV-1 AG W/HIV-1 & HIV-2 AB STAT 11/20/2023 1:20 PM CDT Chronic kidney disease HEPATITIS C ANTIBODY STAT 11/20/2023 1:20 PM CDT Chronic kidney disease HEPATITIS B SURFACE ANTIGEN STAT 11/20/2023 1:20 PM CDT Chronic kidney disease HEPATITIS B SURFACE ANTIBODY STAT 11/20/2023 1:20 PM CDT Chronic kidney disease PC LAB PTT STAT 11/20/2023 1:20 PM CDT Chronic kidney disease PROTHROMBIN (PT) & INR STAT 11/20/2023 1:20 PM CDT Chronic kidney disease GGT STAT 11/20/2023 1:20 PM CDT Chronic kidney disease PC LAB CBC W/DIFF & PLT STAT 11/20/2023 1:20 PM CDT Chronic kidney disease CALCIUM, TOTAL STAT 11/20/2023 1:20 PM CDT Chronic kidney disease PC LAB RH TYPE GEL STAT 11/20/2023 1: 20 PM CDT Chronic kidney disease BILIRUBIN, TOTAL (ONLY) STAT 11/20/2023 1:20 PM CDT Chronic kidney disease AST (SGOT) STAT 11/20/2023 1:20 PM CDT Chronic kidney disease ALT (SGPT) STAT 11/20/2023 1:20 PM CDT Chronic kidney disease ALKALINE PHOSPHATASE STAT 11/20/2023 1:20 PM CDT Chronic kidney disease ALBUMIN STAT 11/20/2023 1:20 PM CDT Chronic kidney disease XR CHEST 2 VIEWS PA + LAT* Routine 11/20/2023 12:42 PM CDT Pre-transplant evaluation for ESRD (end stage renal disease) CT ABDOMEN/PELVIS NO IV CON Routine 11/20/2023 12:28 PM CDT Pre-transplant evaluation for ESRD (end stage renal disease) ECH EXERCISE STRESS ECHO COMPLETE WITH CONTRAST Routine 11/20/2023 11:45 AM CDT Pre-transplant evaluation for ESRD (end stage renal disease) EKG ADULT (12-LEAD) Routine 11/20/2023 1 0:46 AM CDT Pre-transplant evaluation for ESRD (end stage renal disease) from Last 3 Months Results * HIV COMBO (11/20/2023 1:20 PM CDT) HIV Antigen-Antibody Nonreactive Nonreactive [facility] Comment:Performance characte ristics have not been established with this test on patients less than 2 years of age. Blood 11/20/2023 1:20 PM CDT 11/20/2023 2:24 PM CDT Narrative [facility] - 11/20/2023 3:20 PM CDT Bill to Corporate Kidney Acquisition Account Neva CHO LABORAT[facility] Performing Organization Address City/[facility]/ZIP Co de Phone Number [facility] [address] [address] * HEPATITIS B CORE TOTAL THEE (11/20/2023 1:20 PM CDT) HBV Core Total Thee Nonreactive Nonreactive [facility] Blood 11/20/2023 1:20 PM CDT 11/20/2023 3:41 PM CDT Narrative [facility] - 11/20/2023 4:11 PM CDT Bill to Corporate Kidney Acquisition Account Neva CHO LABORAT[facility] [address] [address] * (ABNORMAL) CBC WITH PLTS/AUTO DIFF (11/20/2023 1:20 PM CDT) WBC 4.75 4.00 - 10.00 k/cmm [facility] RBC 2.54(L) 4.60 - 6.00 m/cmm [facility] Hgb 8.4(L) 13.1 - 17.5 g/dL [facility] Hematocrit 24.7(L) 40.0 - 51.0 % [facility] MCV 97.2 80.0 - 100.0 fL [facility] MCH 33.1(H) 25.0 - 32.0 pg [facility] MCHC 34.0 31.0 - 36.0 g/dL [facility] RDW 14.5 11.5 - 14.5 % [facility] Plt 92(L) 150 - 400 k/cmm [facility] MPV 11.6 6.5 - 12.5 fL [facility] Automated Abs Neutrophil 3.10 1.70 - 6.50 k/cmm [facility] Comment:Preliminary ANC, Fin al Result to Follow Abs Immature Granulocyte 0.01 0.00 - 0.09 k/cmm [facility] Comment:The Immature Granulo cyte Absolute count contains metamyelocytes and myelocytes. Abs Neutrophil 3.10 1.70 - 6.50 k/cmm [facility] Abs Lymphocyte 1.09 0.80 - 4.00 k/cmm [facility] Abs Monocyte 0.41 0.20 - 1.00 k/cmm [facility] Abs Eosinophil 0.13 0.00 - 0.60 k/cmm [facility] Abs Basophil 0.01 0.00 - 0.20 k/cmm [facility] Blood 11/20/2023 1:20 PM CDT 11/20/2023 2:24 PM CDT Narrative [facility] - 11/20/2023 2:35 PM CDT Bill to [employer] Kidney Acquisition ??Account Neva CHO LABORAT[facility] [address] [address] * VARICELLA-ZOSTER VIRUS (VZV) ANTIBODY, IGG (11/20/2023 1:20 PM CDT) VZV Ab, IgG Positive [facility] Comment:Positive results ind icate current or past exposure to Varicella-Zoster virus or prior immunization. Blood 11/20/2023 1:20 PM CDT 11/20/2023 2:24 PM CDT Narrative [facility] - 11/21/2023 9:03 AM CDT Bill to Corporate Kidney Acquisition ??Account Neva CHO [facility]ORAT[facility] Performing Organization Address City/[facility]/ZIP Co de Phone Number [facility] [address] [address] * MEASLES VIRUS (RUBEOLA) ANTIBODY, IGG (11/20/2023 1:20 PM CDT) Measles Ab, IgG Index 116.00 AU/ml [facility] Measles Ab, IgG Positive [facility] Comment:Positive results (>= 16.5) indicate current or past exposure to Measles virus or prior immunization. Blood 11/20/2023 1:20 PM CDT 11/20/2023 2:24 PM CDT Narrative [facility] - 11/21/2023 9:03 AM CDT Bill to Corporate Kidney Acquisition ??Account Neva CHO LABORATORY [facility] [address] [address] * PROTHROMBIN (PT) & INR (11/20/2023 1:20 PM CDT) PT 11.6 9.0 - 12.5 sec [facility] INR 1.0 0.8 - 1.1 [facility] Comment: Warfarin Therapeutic Range: Standard Intensity: 2.0 - 3.0 High Intensity: 2.5 - 3.5 Blood 11/20/2023 1:20 PM CDT 11/20/2023 2:25 PM CDT Narrative [facility] - 11/20/2023 2:54 PM CDT Bill to Corporate Kidney Acquisition Account Neva LACKEY LABORATORY [facility] [address] [address] * PHOSPHORUS (11/20/2023 1:20 PM CDT) Phosphorus 3.6 2.5 - 4.5 mg/dL [facility] Blood 11/20/2023 1:20 PM CDT 11/20/2023 2:24 PM CDT Narrative [facility] - 11/20/2023 2:49 PM CDT Bill to Corporate Kidney Acquisition ??Account Neva Carbajal [facility] Performing Organization Address [facility] Co de Phone Number [facility] [address] [address] * HEPATITIS C ANTIBODY (11/20/2023 1:20 PM CDT) Hep C Thee Nonreactive Nonreactive [facility] Comment:Performance characte ristics have not been established with this test on patients less than 10 years of age. Blood 11/20/2023 1:20 PM CDT 11/20/2023 2:24 PM CDT Narrative [facility] - 11/20/2023 3:19 PM CDT Bill to [employer] Kidney Acquisition ??Account Neva LACKEY LABORATORY [facility] [address] [address] * HEPATITIS B SURFACE ANTIGEN (11/20/2023 1:20 PM CDT) Pathologist [facility] HBV Surface Ag Nonreactive Nonreactive [facility] Comment: Testing performed at: [facility] [address] [address] Blood 11/20/2023 1:20 PM CDT 11/20/2023 2:24 PM CDT Narrative [facility] - 11/20/2023 3:19 PM CDT Bill to Corporate Kidney Acquisition ??Account Neva CHO LABORATORY Performing Organization Address [facility] Co de Phone Number [facility] [address] [address] * HEPATITIS B SURFACE ANTIBODY (11/20/2023 1:20 PM CDT) HBsAb Quant 83.42 mIU/ml [facility] Comment: The Hepatitis B Surface Antibody quantitation is greater than or equal to 12.00 mIU/mL. This patient has either had an antibody response to a hepatitis B vaccination, received a transfusion or has recovered from a hepatitis B infection. This patient should be considered immune to hepatitis B. HBsAb Interpretation Reactive [facility] Blood 11/20/2023 1:20 PM CDT 11/20/2023 2:24 PM CDT Narrative [facility] - 11/20/2023 3:19 PM CDT Bill to [employer] Kidney Acquisition ??Account Neva CHO LABORATORY Performing Organization Address [facility] Co de Phone Number [facility] [address] [address] * GGT (11/20/2023 1:20 PM CDT) GGT 13 10 - 71 IU/L [facility] Blood 11/20/2023 1:20 PM CDT 11/20/2023 2:24 PM CDT Narrative [facility] - 11/20/2023 2:49 PM CDT Bill to Corporate Kidney Acquisition ??Account Neva CHO LABORATORY Performing Organization Address [facility] Co de Phone Number [facility] [address] [address] * CALCIUM, TOTAL (11/20/2023 1:20 PM CDT) Calcium 8.6 8.6 - 10.0 mg/dL [facility] Blood 11/20/2023 1:20 PM CDT 11/20/2023 2:24 PM CDT Narrative [facility] - 11/20/2023 2:49 PM CDT Bill to Corporate Kidney Acquisition ??Account Neva LACKEY LABORATORY Performing Organization Address City/[facility]/ZIP Co de Phone Number [address] [address] * BILIRUBIN, TOTAL (ONLY) (11/20/2023 1:20 PM CDT) Bili Total 0.5 <=1.2 mg/dL [facility] Blood 11/20/2023 1:20 PM CDT 11/20/2023 2:24 PM CDT Narrative [facility] - 11/20/2023 2:49 PM CDT Bill to Corporate Kidney Acquisition ??Account Neva LACKEY LABORATORY Performing Organization Address [facility]/ZIP Co de Phone Number [facility] [address] [address] * AST (SGOT) (11/20/2023 1:20 PM CDT) AST(SGOT) 15 5 - 40 IU/L [facility] Blood 11/20/2023 1:20 PM CDT 11/20/2023 2:24 PM CDT Narrative [facility] - 11/20/2023 2:49 PM CDT Bill to Corporate Kidney Acquisition ??Account Neva LACKEY LABORATORY Performing Organization Address City/[facility]/ZIP Co de Phone Number [address] [address] * PTT (APTT) (11/20/2023 1:20 PM CDT) APTT 33.4 25.0 - 37.0 sec [facility] Blood 11/20/2023 1:20 PM CDT 11/20/2023 2:25 PM CDT Narrative [facility] - 11/20/2023 2:54 PM CDT Bill to Corporate Kidney Acquisition Account Neva CHO LABORAT[facility] Performing Organization Address City/[facility]/ZIP Co de Phone Number [facility] [address] [address] * ALT (SGPT) (11/20/2023 1:20 PM CDT) ALT (SGPT) 9 <=41 IU/L [facility] Blood 11/20/2023 1:20 PM CDT 11/20/2023 2:24 PM CDT Narrative [facility] - 11/20/2023 2:49 PM CDT Bill to [employer] Kidney Acquisition ??Account Neva CHO LABORAT[facility] Performing Organization Address [facility]/ZIP Co de Phone Number [facility] [address] [address] * ALKALINE PHOSPHATASE (11/20/2023 1:20 PM CDT) Alk Phos 118 40 - 129 IU/L [facility] Comment:No reference range e stablished for patients <18 years old. Blood 11/20/2023 1:20 PM CDT 11/20/2023 2:24 PM CDT Narrative [facility] - 11/20/2023 2:49 PM CDT Bill to Corporate Kidney Acquisition ??Account Neva CHO LABORAT[facility] Performing Organization Address City/[facility]/ZIP Co de Phone Number [facility] [address] [address] * ALBUMIN (11/20/2023 1:20 PM CDT) Albumin 4.3 3.8 - 5.1 g/dL [facility] Blood 11/20/2023 1:20 PM CDT 11/20/2023 2:24 PM CDT Narrative [facility] - 11/20/2023 2:49 PM CDT Bill to [employer] Kidney Acquisition ??Account Neva CHO LABORATORY [facility] [address] [address] * BLOOD TYPING-ABO/RH (11/20/2023 1:20 PM CDT) ABORHG O POS [facility] Blood 11/20/2023 1:20 PM CDT 11/20/2023 2:29 PM CDT Narrative [facility] - 11/20/2023 3:06 PM CDT Bill to Corporate Kidney Acquisition ??Account Nevauziel Jangmeenu [facility] TRANSFUSION [employer] Performing Organization Address City/[facility]/ZIP Co de Phone Number [facility] [address] [address] * XR CHEST 2 VIEWS PA + LAT* (11/20/2023 12:42 PM CDT) Anatomical Region Laterality Modality Chest Computed Radiogr aphy 11/20/2023 12:5 5 PM CDT Impressions 11/20/2023 1:06 PM CDT Impression: Clear lungs. Reading Radiologist: Claudia Doll Narrative 11/20/2023 1:06 PM CDT Technique: XR CHEST 2 VIEWS PA + LAT* Indication: pre kidney transplant evaluation ?? Comparison: None available Findings: Trachea is in midline. Cardiac silhouette is within normal limits. Pulmonary vasculature is distinct. No acute airspace opacities. No pneumothorax or pleural effusion. The visualized upper abdomen is unremarkable. No acute osseous abnormalities. Procedure Note Claudia Doll MD - 11/20/2023 Technique: XR CHEST 2 VIEWS PA + LAT* Indication: pre kidney transplant evaluation Comparison: None available Findings: Trachea is in midline. Cardiac silhouette is within normal limits.Pulmonary vasculature is distinct. No acute airspace opacities. Nopneumothorax or pleural effusion. The visualized upper abdomen isunremarkable. No acute osseous abnormalities. IMPRESSION Impression: Clear lungs. Reading Radiologist: Claudia Doll Blayne Quiroz MD RAD XRAY * CT ABDOMEN/PELVIS NO IV CON (11/20/2023 12:28 PM CDT) Anatomical Region Laterality Modality Abdomen, Pelvis Computed Tomogra phy 11/20/2023 12:2 7 PM CDT Impressions 11/20/2023 2:54 PM CDT IMPRESSION: 1. Normal caliber common and external iliac arteries without significant calcifications. 2. Atrophic kidneys with punctate nonobstructing calcifications. 3. Trace free fluid in the pelvis, likely physiologic. Reading Radiologist: Shilo Cronin Narrative 11/20/2023 2:[address] abdomen pelvis without contrast CLINICAL HISTORY: Pretransplant evaluation COMPARISON: None TECHNIQUE: Spiral CT of the abdomen and pelvis done without contrast FINDINGS: Normal caliber aorta. Normal caliber common and external iliac arteries, without significant calcifications. There are mild atherosclerotic calcifications involving the internal iliac arteries. Atrophic pancreas. No focal liver lesion on this noncontrast exam. Spleen is nonenlarged. Adrenals are within normal limits. Atrophic kidneys, with punctate nonobstructing calcifications bilaterally. No free air, there is a trace amount of free fluid present within the pelvis. No abnormal loops of bowel. Normal appendix. Limited evaluation of the lung bases is unremarkable. Degenerative changes in the lower lumbar spine. Procedure Note Shilo Cronin MBBS - 11/20/2023 CT abdomen pelvis without contrast CLINICAL HISTORY: Pretransplant evaluation COMPARISON: None TECHNIQUE: Spiral CT of the abdomen and pelvis done without contrast FINDINGS: Normal caliber aorta. Normal caliber common and external iliacarteries, without significant calcifications. There are mildatherosclerotic calcifications involving the internal iliac arteries. Atrophic pancreas. No focal liver lesion on this noncontrast exam. Spleenis nonenlarged. Adrenals are within normal limits. Atrophic kidneys, withpunctate nonobstructing calcifications bilaterally. No free air, there maite trace amount of free fluid present within the pelvis. No abnormal loopsof bowel. Normal appendix. Limited evaluation of the lung bases is unremarkable. Degenerative changesin the lower lumbar spine. IMPRESSION IMPRESSION: 1. Normal caliber common and external iliac arteries without significantcalcifications. 2. Atrophic kidneys with punctate nonobstructing calcifications. 3. Trace free fluid in the pelvis, likely physiologic. Reading Radiologist: Shilo Cronin Blayne Quiroz MD RAD CT BODY * ECH EXERCISE STRESS ECHO COMPLETE WITH CONTRAST (11/20/2023 11:45 AM CDT) MAL True [facility] SQ23 True [facility] SQ45 True [facility] SQ31 True [facility] SQ36 True [facility] SQ40 True [facility] SQ43 True [facility] heart rate 84 bpm [facility] BPS 184 mmHg [facility] BPD 80 mmHg [facility] 009AR True [facility] 010AR True [facility] 009CS True [facility] 010IS True [facility] 11/20/2023 Narrative [facility] - 11/20/2023 12:00 AM CDT Report Status:Finalized Stress Echocardiography Report Demographics Patient Name ? WOODARD-MONTERROSO ?Height ? 67.01 Inches MACO Patient Number ?? [id number] ?Weight ? 205 Pounds Date of ?1980 ? BSA ?2.04 m^2 Age ?43 ? Tape Number: Gender ? Male ? Study Date ? 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 Ordering Provider ??CORBY CARUSO Referring ? Interpreting ? Hue Flynn MD Physician ? Physician ?[id number] Type of Study: Stress procedure: ECH EXERCISE STRESS ECHO, Color Doppler, Spectral Doppler HR: 84 bpmBP: 184/80 mmHg Patient Status: RoutineTechnical Quality: Adequate visualization Study Location: Echo LabContrast Medium: Definity. Amount- 0.77 ml Indications Indications for Study: Eval for Inducible Ischemia. CONCLUSIONS SUMMARY The patient exercised for 9:08 minutes on a standard Mal protocol and achieved a peak heart rate of 109 bpm representing 62% of age predicted maximum heart rate and an estimated work load of 10.1 METs. Test was terminated because of fatigue. Patient did not report chest pain. Normal stress echocardiogram with a moderate degree of certainty. The sensitivity of the test for detection of inducible myocardial ischemia is reduced, as the patient did not reach target heart rate. 1. No echocardiographic evidence of ischemia at the cardiac workload achieved. 2. Left ventricular function normal at rest, improved with stress. 3. No ischemic ECG response with inadequate heart rate. 4. The patient did not report angina with stress. 5. Exercise capacity was excellent. 6. The baseline echocardiogram revealed mildly increased left ventricular wall thickness and no significant valvular abnormalities. ADDITIONAL REMARKS Given lack of heart rate augmentation, consider pharmacologic nuclear stress testing for future pre-transplant evaluation if clinically indicated. Signature Rest ECG Normal sinus rhythm. Standing HR:85 bpmStanding BP:145/67 mmHg Pre-Stress Patient History Rule-out Ischemia. Hypertension. Coronary Artery Disease. Diabetes Insulin . ESRD pre-transplant work-up. Coreg. Ja. Quynh. Due to poor endocardial definition at baseline, Definity was used to enhance endocardial definition. Stress Stress Type: Exercise Mal Peak HR: 109 bpm ?HR Response: Normal Peak BP: 184/71 mmHg ?BP Response: Normal Predicted HR: 176 bpm ? HR BP Product: [id number] % of predicted HR: 62 ? Max Exercise: 10.1 METS Test Duration: 9.13 min ? Atropine Dose:1mg Reason for Termination: Fatigue Results Global LVEF (rest): Normal (LVEF >50%) Global LVEF (stress): Improved ECG No ischemic ECG response with inadequate heart rate . Arrhythmias No rhythm abnormality. Symptoms Fatigue. Stress Interpretation Stress Protocol Mal . Degree of Certainty Fairly Confident(B) . Image Quality Excellent(A) . Rest Ventricular Function Normal>50% . Stress Ventricular Function Improved . Rest Ventricular Size Normal . Stress-Induced Ventricular Dilation Absent . Structures Left Ventricle Global Longitudinal Strain: Left Ventricle Summary No wall motion abnormality at rest. Normal estimated left ventricular ejection fraction at rest. No wall motion abnormality with stress. Normal estimated left ventricular ejection fraction improved with stress. 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 Amount- 0.77 ml Indications Indications for Study: Eval for Inducible Ischemia. CONCLUSIONS SUMMARY The patient exercised for 9:08 minutes on a standard Mal protocol and achieved a peak heart rate of 109 bpm representing 62% of age predicted maximum heart rate and an estimated work load of 10.1 METs. Test was terminated because of fatigue. Patient did not report chest pain. Normal stress echocardiogram with a moderate degree of certainty. The sensitivity of the test for detection of inducible myocardial ischemiais reduced, as the patient did not reach target heart rate. 1. No echocardiographic evidence of ischemia at the cardiac workload achieved. 2. Left ventricular function normal at rest, improved with stress. 3. No ischemic ECG response with inadequate heart rate. 4. The patient did not report angina with stress. 5. Exercise capacity was excellent. 6. The baseline echocardiogram revealed mildly increased leftventricular wall thickness and no significant valvular abnormalities. ADDITIONAL REMARKS Given lack of heart rate augmentation, consider pharmacologic nuclear stress testing for future pre-transplant evaluation if clinically indicated. Signature Rest ECG Normal sinus rhythm. Standing HR:85 bpmStanding BP:145/67 mmHg Pre-Stress Patient History Rule-out Ischemia. Hypertension. Coronary Artery Disease. Diabetes Insulin . ESRD pre-transplant work-up. Coreg. Norvasc. Quynh. Due to poor endocardial definition at baseline, DefinAbundance Generation was used to enhance endocardial definition. Stress Stress Type: Exercise Mal Peak HR: 109 bpm HR Response: Normal Peak BP: 184/71 mmHg BP Response: Normal Predicted HR: 176 bpm HR BP Product: [id number] % of predicted HR: 62 Max Exercise: 10.1 METS Test Duration: 9.13 min Atropine Dose:1mg Reason for Termination: Fatigue Results Global LVEF (rest): Normal (LVEF >50%) Global LVEF (stress): Improved ECG No ischemic ECG response with inadequate heart rate . Arrhythmias No rhythm abnormality. Symptoms Fatigue. Stress Interpretation Stress Protocol Mal . Degree of Certainty Fairly Confident(B) . Image Quality Excellent(A) . Rest Ventricular Function Normal>50% . Stress Ventricular Function Improved . Rest Ventricular Size Normal . Stress-Induced Ventricular Dilation Absent . Structures Left Ventricle Global Longitudinal Strain: Left Ventricle Summary No wall motion abnormality at rest. Normal estimated left ventricular ejection fraction at rest. No wall motion abnormality with stress. Normal estimated left ventricular ejection fraction improved withstress. Blayne Quiroz MD RAD ECHO Performing Organization Address [facility] de Phone Number [facility] * EKG ADULT (12-LEAD) (11/20/2023 10:46 AM CDT) 11/20/2023 10:4 6 AM CDT Impressions [facility] CVIS EKG ORDERS - 11/20/2023 10:46 AM CDT SINUS RHYTHM NORMAL ECG No previous ECG available for comparison. P-R Interval 174 ms QRS Interval 93 ms QT Interval 367 ms QTC Interval 409 ms P [place] 46 QRS [place] 61 T Wave [place] 68 Narrative Procedure Note Jean Liu MD - 11/20/2023 IMPRESSION SINUS RHYTHM NORMAL ECG No previous ECG available for comparison. P-R Interval 174 ms QRS Interval 93 ms QT Interval 367 ms QTC Interval 409 ms P [place] 46 QRS [place] 61 T Wave [place] 68 Blayne Quiroz MD EKG Performing Organization Address [facility] de Phone Number [facility] CVIS EKG ORDERS from Last 3 Months CORPORATE,KIDNEY ACQUISITION COST-CURRENT NEW Corporate Other 05/26/2020 Attn Williams Lindquist [facility] [address] [place] [address]
--- OUTSIDE RECORDS SUMMARY | 2023-11-21 09:20 | XMS_ITS ---
Author Name Krystian, Clinic Address [address] [place] [address] Phone [phone] Organization [facility] e, NA DOCUMENT DISCLAIMER Multiple document versions [...] Sign Value Date / Time Blood Pressure-sitting 192/68 mmHg November 16, 2023 07:59 PM Blood Pressure-standing 145/60 mmHg [facility] 2023 07:59 PM Heart Rate 93 beats per minute October 07:59 PM Temperature 97.8 deg. F November 15 07:59 PM Weight Vital Sign Value Date / Time Estimated Dry Weight 87 kg October 11:59 PM Pre-Dialysis 85.5 kg November 15 07:59 PM Post-Dialysis 86.4 kg November 15 07:59 PM Other Other Value Date / Time [...] 228 mcg/dL 185 - 515 mcg/dL - r 2023 Transferrin Sat. (Calc) 36 % 20 [...] 96 - 108 mEq/L - August 30 Potassium 6.6 mEq/L 3.5 - 5.1 mEq/L [...] 6 - 19 mg/dL High September 26 URR, Calc 57 % 65 - 80 [...] Ca x P Product 40 0 - August 31, 2023 Calcium, Total 9.8 [...] pg/mL 16 - 80 pg/mL High Sep Corrected Ca x P Product 37 0 - November 02, 20 24 Phosphorus 4.4 mg/dL 2.6 - 4.5 mg/dL - November 03, 2023 Ca x P Product 36 0 - November 03, 2023 Calcium, Total 8.2 mg/dL 8.7 - 10.4 mg/dL Low Oct PTH-Intact, Plasma 328 pg/mL 16 - 80 pg/mL High Oct Liver/Nutrition Result Type Result Value Relevant Reference Range Interpre tation Albumin (BCG) 4.3 g/dL 3.5 - 5.2 [...] 29, 2023 Frequency 4X Week Treatment Days MonTueThuFri Dialyzer/Cartridge CAR 172 Therapy Fluid (dialysate) 2.0 [...] Dialysate Dialysis Access Meds-entered by patient [facility] 2023 Weight 86.6 kg Weight 87.4 kg 3:0 1 of 10 350 CAR-172-C 2K 45 Lactate Blood Pressure-sitting 178/84 mmHg Blood Pressure-sitting 20 0/82 mmHg 2 of 10 400 Blood Pressure-standing 182/81 mmHg Blood Pressure-standing 178/73 mmHg 3 of 10 400 Heart Rate 82 beats per minute Heart Rate 89 beats per minute 4 of 10 400 Temperature 98.3 deg. F Temperature 96.8 deg. F 5 of 10 40 0 - - - - 6 of 10 400 - - - - 7 of 10 400 - - - - 8 of 10 400 - - - - 9 of 400 - - - - 10 of November 15, 2023 Weight 86.6 kg Weight 85.9 kg 3:0 1 of 12 280 CAR-172-C 2K 45 Lactate Not available Heparin 1999 Via Access Heparin 2000 Access Blood Pressure-sitting 176/75 mmHg Blood Pressure-sitting 16 4/65 mmHg 2 of 12 - Blood Pressure-standing 140/61 mmHg Blood Pressure-standing 136/63 mmHg 3 of 12 400 Heart Rate 82 beats per minute Heart Rate 84 beats per minute 4 of 12 400 Temperature 97.9 deg. F Temperature 98.3 deg. F 5 of 12 40 0 - - - - 6 of 12 400 - - - - 7 of 12 400 - - - - 8 of 12 400 - - - - 9 of 12 - - - - - 10 of 14 - - - - 11 of - - - - - 12 - November 16, 2023 Weight 85.5 kg Weight 86.4 kg 3:0 1 of 8 260 CAR-172-C 2K 45 Lactate Not available Heparin 1999 Via Access Heparin 1999 Access Blood Pressure-sitting 168/77 mmHg Blood Pressure-sitting 19 2/68 mmHg 2 of 8 - Blood Pressure-standing 163/74 mmHg Blood Pressure-standing 145/60 mmHg 3 of 8 400 Heart Rate 91 beats per minute Heart Rate 93 beats per minute 4 of 8 400 Temperature 98.3 deg. F Temperature 97.8 deg. F 5 of 8 40 0 - - - - 6 of 8 400 - - - - 7 of 8 400 - - - - 8 of 8 400
--- OUTSIDE RECORDS SUMMARY | 2023-11-21 09:21 | XMS_ITS | Encounter Summary ---
Author Organization [facility] Address [address] [place] [address] Phone Care Team Providers Care Clinical Rn Manager Name Role Phone Unavailable Primary Care Provider Unavailabl e Encounter Details Date Type Department Care Team (Late st Contact Info) Description 09/03/2023 Documentation Only Transplant Program [address] [place], [place] [address] Williams Lindquist Transplant Change Management Specialist [address] [place], [place] [id number] Social History Tobacco Use Types Packs/Day Years Used Date Smoking Tobacco: Never Assessed Sex and Gender Information Value Date Recorded Sex Assigned at Not on file Gender Identity Not on file Sexual Orientation Not on file documented as of this encounter Progress Notes * Williams Lindquist Transplant Change Management Specialist - 09/03/2023 9:30 AM CDT D/A: Patient's Emergency Medical Assistance checked in [facility] website and found to be inactive. Patient was called with expert medical writer and given this information. Patient responded in Bulgarian and does not need an staker surveying. Patient stated he believes everything has been [...] when his coverage is in place again. aco coordinator aware. Brenna Lindquist Transplant Change Management Specialist, Sunday September 03, 2023 09:35 documented in this encounter Plan of Treatment Upcoming Encounters Date Type Department Care Team (Late st Contact Info) Description 12/18/2023 11:00 AM CDT Office Visit [facility] Clinic [address] [address] Denae Mckeon MD 701 [facility] [address] [place] [id number] Scheduled Discharge Disposition: Discharged to home or self care documented as of this encounter Visit Diagnoses Not on filedocumented in this encounter
--- OUTSIDE RECORDS SUMMARY | 2023-11-21 09:21 | XMS_ITS | Encounter Summary ---
Author Organization [facility] Address [address] [place] [address] Phone Care Team Providers Care Staff Submarine Warfare Officer Name Role Phone Unavailable Primary Care Provider Unavailabl e Encounter Details Date Type Department Care Team (Late Contact Info) Description 11/01/2023 Documentation Only Transplant Program [address] [place] [address] Williams Lindquist Transplant Pre Algebra Teacher [address] [place], [place] [address] Social History Tobacco Use Types Packs/Day Years Used Date Smoking Tobacco: Never Assessed Sex and Gender Information Value Date Recorded Sex Assigned at Not on file Gender Identity Not on file Sexual Orientation Not on file documented as of this encounter Progress Notes * Williams Lindquist Transplant Pre Algebra Teacher - 11/01/2023 1:48 PM CDT D/A: The following secure email was sent to Rin, patient's opinion polls survey worker. Lopez Gar, Sorry to bother you, but I'm wondering if you have received the [facility] approved renewed ESRD Care Planon Maco Stein? He has transplant evaluation appointments scheduled and I'm afraid we'll have to cancel them if we don't have a current Care Plan in place. Thanks for your help, Williams Hui: Response pending. Brenna Lindquist Transplant Pre Algebra Teacher, October 13:49 documented in this encounter Plan of Treatment Upcoming Encounters Date Type Department Care Team (Late st Contact Info) Description 12/18/2023 11:00 AM CDT Office Visit [facility] Specialty [facility] Cardiology Clinic [address] [place] [address] Denae Mckeon MD 701 [facility] [address] [place] [address] Scheduled Discharge Disposition: Discharged to home or self care documented as of this encounter Visit Diagnoses Not on filedocumented in this encounter
--- OUTSIDE RECORDS SUMMARY | 2023-11-21 09:21 | XMS_ITS | Encounter Summary ---
Author Organization [facility] Address [address] [place] [address] Phone Care Team Providers Care Scale Reclamation Tender Name Role Phone Unavailable Primary Care Provider Unavailabl e Encounter Details Date Type Department Care Team (Latest Contact Info) Description 11/20/2023 Travel Social History Tobacco Use Types Packs/Day Years [...] & Specialty Center Cardiology Clinic [address] [place] [address] Denae Mckeon MD 701 [facility] [address] [place] [address] Scheduled Discharge Disposition: Discharged to home or self care documented as of this encounter Visit Diagnoses Not on filedocumented in this encounter
--- OUTSIDE RECORDS SUMMARY | 2023-11-21 09:21 | XMS_ITS | Encounter Summary ---
Author Organization [facility] Address [address] [facility] [place] [address] Phone Care Team Providers Care Crusher Name Role Phone Unavailable Primary Care Provider Unavailabl e Encounter Details Date Type Department Care Team (Late st Contact Info) Description 11/21/2023 Abstract Transplant Program 701 [facility] [address] [place] [address] Chinyere Valencia RN [facility] [address] [place] [address] Social History Tobacco Use Types Packs/Day Years [...] Clinic & Specialty Center Cardiology Clinic [address] [address] Denae Mckeon MD 701 [facility] [address] [place] [address] Scheduled Discharge Disposition: Discharged to home or self care documented as of this encounter Visit Diagnoses Not on filedocumented in this encounter
--- OUTSIDE RECORDS SUMMARY | 2023-11-21 09:21 | XMS_ITS ---
Author Organization [facility] Address [address] [place] [address] Phone Care Team Providers Care Shipper And Receiving Name Role Phone Unavailable Primary Care Provider Unavailabl e Transplant Episode Kidney Candidate [facility] ([place], [place]) - [facility] Evaluation began on 11/20/2023 Marked as Active on 11/20/2023 Kidney CoordinatorChinyere Valencia RN Phone: N/A Fax: N/A Email: N/A Care Team Name Role Phone Fax Email Chinyere Valencia RN Kidney Coordinator N/A N/A N/A Jean Ochoa DO TXP Info Surgeon [phone] N/A Julito Cortez MD Mushroom [employer] Media Mixer Referring Mushroom [employer] Media Mixer Referring Provider [phone] N/A Kidney Spec [facility] Referring Nephrology Group [facility] Nephrology Group N/A N/A N/A Chinyere Valencia RN TXP Pre Coordinator N/A N/A N/A Events Pre-Transplant Referred: 05/11/2023 Evaluation began: 11/20/2023 Committee: 07/20/2023 Appointments (10/21/2023 - 12/21/2023) When With Description 11/20/2023 Transplant - Kamala Simental Chronic kidne y disease (Primary Dx) 11/20/2023 Transplant - Stacia Goode Encount er for pre-transplant evaluation for kidney transplant (Primary Dx) Dialysis History Dialysis History Start End Type Comments Center Home Hemodialysis [facility] Information Center Phone Fax Address [facility] [phone] [address] [facility] [address]
--- OUTSIDE RECORDS SUMMARY | 2023-11-21 09:21 | XMS_ITS | Encounter Summary ---
Author Organization [facility] Address [address] [place] [address] Phone Care Team Providers Care Manager Athletics Name Role Phone Unavailable Primary Care Provider Unavailabl e Reason for Visit * Reason Comments Pre Kidney Transplant Evaluation Encounter Details Date Type Department Care Team (Late st Contact Info) Description 11/20/2023 2:30 PM CDT Nurse Only Transplant Program [address] [place], [place] [phone] Neva Carbajal MBBS [address] [facility] [address] [place], [place] [phone] RnCali-Pre Recipient Chronic kidney disease (Primary Dx) Discharge Disposition: Discharged to home or self care Social History Tobacco Use Types Packs/Day Years Used Date Smoking Tobacco: Never Assessed Sex and Gender Information Value Date Recorded Sex Assigned at Not on file Gender Identity Not on file Sexual Orientation Not on file documented as of this encounter Progress Notes * Chinyere Valencia RN - 11/20/2023 2:30 PM CDT D/A ) Maco to clinic today to sign consents and have labs drawn. Also meeting with manager of pharmacy. Discussed when labs results would be returned. Chinyere Valencia RN, 11/20/2023 2:25 PM documented in this encounter Miscellaneous Notes * Transplant Care Plan - Chinyere Valencia RN - 11/20/2023 2:30 PM CDT Transplant-Recipient Plan Transplant-Pre Care Plan Maco Stein Recipient Care Plan Pretransplant I) Referral received by financial aid advisor from Nephrologists, dialysis unit or patient. II) Patient scheduled to attend information session. III) Patient attends information session which includes Supervisor Paper Testing, Transplant Drying Room Attendant, Customer Success Intern, Living Donor Coordinator, Transplant Surgeon, Calender Wind Up Helper, and Certified Financial Planner Discussed the following with potential transplant candidate and their family members: IV) A) Advantages and disadvantages of transplant V) B) Possible complications post transplant ) C)Medications and their side effects VII) D) Hospitalization and frequency of clinic visits post-op VIII) E) Requirement that all out-of-town patients remain in [facility] for at least 2 weeks post-op, typically about 4-6 weeks IX) F) Evaluation requirements and rationale X) G) Explained transplant waitlist: including average waiting time, kidney allocation, multiple center listing and the call-in process. XI) H) Answered questions regarding transplantation and donation XII) I) Obtained remainder of demographic, medical history, blood transfusion, smoking, drug, alcohol, , and travel histories XIII) J) Inquired about potential living donors IV) Appropriate transplant candidate proceeding with work-up who has not received a previous kidney transplant moves forward with transplant evaluation to include, but not limited to the followin) History and Physical Exam. 2) Labs needed in work up (not to be repeated if completed within the last year): ABO Panel, which includes: [Electrolytes, Albumin, Alkaline Phosphatase, ALT (SGPT), AST (SGOT), GGT, Total Bili, Calcium, Phosphorus, Creatinine], PSA for males; (if = or > 4.0 the patient needs further evaluation). CBC with platelets, Anti HBSs, HBsAg, HepB core thee Anti HIV, Anti HCV only patients not on dialysis: RPR, varicella, EBV, TSPOT, geographical screenings if indicated, PT/INR, PTT Creatinine clearance with protein excretion in addition to above labs as directed 3) Tissue type (HLA) upon acceptance as a transplant candidate , ALA 4) Cardiac Stress Echo only if diabetic, greater than 45 years old, cardiac history, or symptomatic. If positive stress echo, angiogram is considered. 5) Chest X-ray: PA and Lateral within the last year 6) EKG 7) GB Ultrasound if symptomatic 8) VCUG - with post void films if history of reflux, congenital abnormality of system, acquired defect of system or obstructive process 9) Endoscopy/UGI if symptomatic or history of ulcer, bleeding, or pain 10) Colonoscopy age 50 or greater - Do not repeat if done within the last five years unless recommended by GI 11) Mammogram for females over forty years of age 12) Pap and Pelvic for females every 3 years 13) PPD, TSPOT, or Quantiferon Gold within one year 14) Pneumovax SQ, Prevnar 13, Shingles, HepB vaccine to maintain currency 15) Dental exam 16) Heptavax series is recommended on all patients pre transplant 17) Preliminary crossmatches with all potential donors while on the waiting list Transplant-Recipient Plan Transplant-Pre Care Plan Maco Stein V) Appropriate transplant candidates moving forward with work-up who have received a kidney transplant previously moves forward with transplant evaluation to include, but not limited to the followin) Current Antibody (ALA) 2) Anti HBs, HbsAg, HepB core thee, Anti-HIV, and Anti HCV within one year 3) Chest X-ray: PA and Lateral within the last year 4) Electrocardiogram within last year 5) If diabetic, symptomatic, history of heart disease or age >45 stress echocardiogram within last year 6) Mammogram for females over 40 years of age, within one year 7) Pap smear and pelvic exam for females every 3 years 8) PPD skin test, TSPOT, or Quantiferon Gold within one year 9) Pneumovax .5ml SQ to maintain currency 10) Colonoscopy age 50 or greater, or if family history or symptoms 11) Dental exam ) Upon completion of candidate pretransplant evaluation, the medical history and pretransplant evaluation results are reviewed by the Transplant Team at weekly meeting 1. Patient approved for placement on the kidney transplant waitlist 2. Patient requires further testing. 3. Patient deemed unsuitable for kidney transplantation VII) Patient notified of outcome of Transplant Team meeting VIII) If patient approved to be waitlisted, patient's name is placed on the [facility] kidney donor waitlist. Patient notification letter sent and if patient is predialysis arrangements are made for ALA levels to be drawn 2. Patient's Certified Financial Planner notified 3. Patient's dialysis unit notified and arrangements made for ALA levels to be drawn 4. Immunology Lab notified 5. Appropriate Transplant Staff notified IX) If patient requires further testing, arrangements are made for this to be completed. 1. Patient notified of plan for further testing. 2. Patient???s dialysis unit notified via monthly updates. Once testing completed, it is reviewed with the Transplant Team for determination on suitability for listing. X) If patient is determined unsuitable for transplant: 1. Patient notified by telephone call 2. Patient notification letter sent. 3. Patient???s Certified Financial Planner notified 4. Patient???s dialysis unit notified Transplant-Recipient Plan Transplant-Pre Care Plan Maco Stein WAITLIST MANAGEMENT I) Monthly Updates a. Brief summary of patient's transplant status sent out by the Transplant Clinic monthly to the dialysis unit or if predialysis to the Certified Financial Planner. II) Semiannual Check Calls Patient contacted by phone by transplant call center team leader to verify current: contact information, insurance, health status including recent transfusion history and hospitalizations. b. Verified patient's plan for transportation and housing, if needed after transplant. c. Allow patient to ask questions regarding the transplant process. III) One Year Cardiac Follow-up Required for Patients with Diabetes or Known Coronary Artery Disease. Signature Date: documented in this encounter Plan of Treatment Upcoming Encounters Date Type Department Care Team (Late st Contact Info) Description 12/18/2023 11:00 AM CDT Office Visit [facility] Cardiology Clinic [address] [address] Denae Mckeon MD [address] [address] Scheduled Discharge Disposition: Discharged to home or self care Pending Results Name Type Priority Associated Diagnoses Date /Time QUANTIFERON-TB GOLD PLUS Lab STAT Chronic kidney disease 11/20/2023 1:20 PM CDT Scheduled Orders Name Type Priority Associated Diagnoses Orde r Schedule EBV VCA IGG Lab STAT Chronic kidney disease Ordered: 11/20/2023 RPR SYPHILIS SCREEN Lab STAT Chronic kidney disease Ordered: 11/20/2023 COCCIDIOIDES AB SCREEN WITH REFLEX Lab STAT Chronic kidney disease Ordered: 11/20/2023 STRONGYLOIDES IGG ANTIBODY Lab STAT Chronic kidney disease Ordered: 11/20/2023 DONOR,CHAGAS SCREEN Lab Routine Order ed: 11/20/2023 documented as of this encounter Procedures Procedure Name Priority Date/Time Associated Diagnosis Comments PC HIV-1 AG W/HIV-1 & HIV-2 AB STAT 11/20/2023 1:20 PM CDT Chronic kidney disease PC HEP B CORE ANTIBODY STAT 11/20/2023 [...] 11/20/2023 1:20 PM CDT Chronic kidney disease BILIRUBIN, TOTAL [...] 1: 20 PM CDT Chronic kidney disease documented in this encounter Results * HEPATITIS B CORE TOTAL THEE (11/20/2023 1:20 PM CDT) HBV Core Total Thee Nonreactive Nonreactive [facility] Blood 11/20/2023 1:20 PM CDT 11/20/2023 3:41 PM CDT Narrative [facility] - 11/20/2023 4:11 PM CDT Bill to Corporate Kidney Acquisition Account Neva CHO LABORATORY [facility] [address] [address] * MEASLES VIRUS (RUBEOLA) ANTIBODY, IGG (11/20/2023 1:20 PM CDT) Measles Ab, IgG Index 116.00 AU/ml [facility] Measles Ab, IgG Positive [facility] Comment:Positive results (>= 16.5) indicate current or past exposure to Measles virus or prior immunization. Blood 11/20/2023 1:20 PM CDT 11/20/2023 2:24 PM CDT Narrative [facility] - 11/21/2023 9:03 AM CDT Bill to Corporate Kidney Acquisition ??Account Neva CHO LABORATORY Performing Organization Address City/[facility]/ZIP Co de Phone Number [facility] [address] [address] * VARICELLA-ZOSTER VIRUS (VZV) ANTIBODY, IGG (11/20/2023 1:20 PM CDT) Pathologist [facility] VZV Ab, IgG Positive [facility] Comment:Positive results ind icate current or past exposure to Varicella-Zoster virus or prior immunization. Blood 11/20/2023 1:20 PM CDT 11/20/2023 2:24 PM CDT Narrative [facility] - 11/21/2023 9:03 AM CDT Bill to Corporate Kidney Acquisition ??Account Neva CHO LABORATORY Performing Organization Address [facility] Co de Phone Number [facility] [address] [address] * PHOSPHORUS (11/20/2023 1:20 PM CDT) [facility] Phosphorus 3.6 2.5 - 4.5 mg/dL [facility] Blood 11/20/2023 1:20 PM CDT 11/20/2023 2:24 PM CDT Narrative [facility] - 11/20/2023 2:49 PM CDT Bill to Corporate Kidney Acquisition ??Account Neva LACKEY LABORATORY Performing Organization Address City/[facility] Co de Phone Number [facility] [address] [address] * HIV COMBO (11/20/2023 1:20 PM CDT) Pathologist [facility] HIV Antigen-Antibody Nonreactive Nonreactive [facility] Comment:Performance characte ristics have not been established with this test on patients less than 2 years of age. Blood 11/20/2023 1:20 PM CDT 11/20/2023 2:24 PM CDT Narrative [facility] - 11/20/2023 3:20 PM CDT Bill to Corporate Kidney Acquisition Account Neva CHO LABORATORY [facility] [address] [address] * HEPATITIS C ANTIBODY (11/20/2023 1:20 PM CDT) Pathologist [facility] Hep C Thee Nonreactive Nonreactive [facility] Comment:Performance characte ristics have not been established with this test on patients less than 10 years of age. Blood 11/20/2023 1:20 PM CDT 11/20/2023 2:24 PM CDT Narrative [facility] - 11/20/2023 3:19 PM CDT Bill to Corporate Kidney Acquisition ??Account Neva CHO LABORATORY Performing Organization Address [facility]/ZIP Co de Phone Number [facility] [address] [address] * HEPATITIS B SURFACE ANTIGEN (11/20/2023 1:20 PM CDT) [facility] HBV Surface Ag Nonreactive Nonreactive [facility] Comment: Testing performed at: [facility] [address] [address] Blood 11/20/2023 1:20 PM CDT 11/20/2023 2:24 PM CDT Narrative [facility] - 11/20/2023 3:19 PM CDT Bill to Corporate Kidney Acquisition ??Account Neva CHO LABORATORY Performing Organization Address City/[facility]/ZIP Co de Phone Number [facility] [address] [address] * HEPATITIS B SURFACE ANTIBODY (11/20/2023 1:20 PM CDT) HBsAb Quant 83.42 mIU/ml [facility] Comment: The Hepatitis B Surface Antibody quantitation is greater than or equal to 12.00 mIU/mL. This patient has either had an antibody response to a hepatitis B vaccination, received a transfusion or has recovered from a hepatitis B infection. This patient should be considered immune to hepatitis B. HBsAb Interpretation Reactive [facility] Blood 11/20/2023 1:20 PM CDT 11/20/2023 2:24 PM CDT Narrative [facility] - 11/20/2023 3:19 PM CDT Bill to Corporate Kidney Acquisition ??Account Neva CHO LABORATORY Performing Organization Address City/[facility]/ZIP Co de Phone Number [facility] [address] [address] * PTT (APTT) (11/20/2023 1:20 PM CDT) APTT 33.4 25.0 - 37.0 sec [facility] Blood 11/20/2023 1:20 PM CDT 11/20/2023 2:25 PM CDT Narrative [facility] - 11/20/2023 2:54 PM CDT Bill to Corporate Kidney Acquisition Account Neva CHO LABORATORY Performing Organization Address [facility] Co de Phone Number [facility] [address] [address] * PROTHROMBIN (PT) & INR (11/20/2023 1:20 PM CDT) PT 11.6 9.0 - 12.5 sec [facility] INR 1.0 0.8 - 1.1 [facility] Comment: Warfarin Therapeutic Range: Standard Intensity: 2.0 - 3.0 High Intensity: 2.5 - 3.5 Blood 11/20/2023 1:20 PM CDT 11/20/2023 2:25 PM CDT Narrative [facility] - 11/20/2023 2:54 PM CDT Bill to Corporate Kidney Acquisition Account Neva CHO LABORATORY Performing Organization Address City/[facility]/ZIP Co de Phone Number [facility] [address] [address] [place] [address] * GGT (11/20/2023 1:20 PM CDT) Pathologist [facility] GGT 13 10 - 71 IU/L [facility] Blood 11/20/2023 1:20 PM CDT 11/20/2023 2:24 PM CDT Narrative [facility] - 11/20/2023 2:49 PM CDT Bill to Corporate Kidney Acquisition ??Account Neva CHO LABORATORY [facility] [address] [place] [address] * (ABNORMAL) CBC WITH PLTS/AUTO DIFF (11/20/2023 1:20 PM CDT) Pathologist [facility] WBC 4.75 4.00 - 10.00 k/cmm [facility] RBC 2.54(L) 4.60 - 6.00 m/cmm [facility] Hgb 8.4(L) 13.1 - 17.5 g/dL [facility] Hematocrit 24.7(L) 40.0 - 51.0 % [facility] MCV 97.2 80.0 - 100.0 fL [facility] MCH 33.1(H) 25.0 - 32.0 pg [facility] MCHC 34.0 31.0 - 36.0 g/dL [facility] RDW 14.5 11.5 - 14.5 % [facility] Plt 92(L) 150 - 400 k/cmm [facility] MPV 11.6 6.5 - 12.5 fL [facility] Automated Abs Neutrophil 3.10 1.70 - 6.50 k/cmm [facility] Comment:Preliminary ANC, Fin al Result to Follow Abs Immature Granulocyte 0.01 0.00 - 0.09 k/cmm [facility] Comment:The Immature Granulo cyte Absolute count contains metamyelocytes and myelocytes. Abs Neutrophil 3.10 1.70 - 6.50 k/cmm [facility] Abs Lymphocyte 1.09 0.80 - 4.00 k/cmm [facility] Abs Monocyte 0.41 0.20 - 1.00 k/cmm [facility] Abs Eosinophil 0.13 0.00 - 0.60 k/cmm [facility] Abs Basophil 0.01 0.00 - 0.20 k/cmm [facility] Blood 11/20/2023 1:20 PM CDT 11/20/2023 2:24 PM CDT Narrative [facility] - 11/20/2023 2:35 PM CDT Bill to Corporate Kidney Acquisition ??Account Neva CHO LABORATORY [facility] [address] [address] * CALCIUM, TOTAL (11/20/2023 1:20 PM CDT) Calcium 8.6 8.6 - 10.0 mg/dL [facility] Blood 11/20/2023 1:20 PM CDT 11/20/2023 2:24 PM CDT Narrative [facility] - 11/20/2023 2:49 PM CDT Bill to Corporate Kidney Acquisition ??Account Neva CHO LABORATORY Performing Organization Address [facility] Co de Phone Number [facility] [address] [address] * BLOOD TYPING-ABO/RH (11/20/2023 1:20 PM CDT) ABORHG O POS [facility] Blood 11/20/2023 1:20 PM CDT 11/20/2023 2:29 PM CDT Narrative [facility] - 11/20/2023 3:06 PM CDT Bill to Corporate Kidney Acquisition ??Account Neva CHO LAB TRANSFUSION SER VICES Performing Organization Address [facility]/ZIP Co de Phone Number [facility] [address] [address] * BILIRUBIN, TOTAL (ONLY) (11/20/2023 1:20 PM CDT) Bili Total 0.5 <=1.2 mg/dL [facility] Blood 11/20/2023 1:20 PM CDT 11/20/2023 2:24 PM CDT Narrative [facility] - 11/20/2023 2:49 PM CDT Bill to Corporate Kidney Acquisition ??Account Neva CHO LABORATORY Performing Organization Address City/[facility]/ZIP Co de Phone Number [facility] [address] [address] * AST (SGOT) (11/20/2023 1:20 PM CDT) AST(SGOT) 15 5 - 40 IU/L [facility] Blood 11/20/2023 1:20 PM CDT 11/20/2023 2:24 PM CDT Narrative [facility] - 11/20/2023 2:49 PM CDT Bill to Corporate Kidney Acquisition ??Account Neva LACKEY LABORATORY Performing Organization Address [facility]/ZIP Co de Phone Number [facility] [address] [address] * ALT (SGPT) (11/20/2023 1:20 PM CDT) ALT (SGPT) 9 <=41 IU/L [facility] Blood 11/20/2023 1:20 PM CDT 11/20/2023 2:24 PM CDT Narrative [facility] - 11/20/2023 2:49 PM CDT Bill to Corporate Kidney Acquisition ??Account Neva CHO LABORATORY Performing Organization Address City/[facility]/ZIP Co de Phone Number [facility] [address] [address] * ALKALINE PHOSPHATASE (11/20/2023 1:20 PM CDT) Alk Phos 118 40 - 129 IU/L [facility] Comment:No reference range e stablished for patients <18 years old. Blood 11/20/2023 1:20 PM CDT 11/20/2023 2:24 PM CDT Narrative [facility] - 11/20/2023 2:49 PM CDT Bill to Corporate Kidney Acquisition ??Account Neva CHO LABORATORY Performing Organization Address [facility] Co de Phone Number [facility] [address] [address] * ALBUMIN (11/20/2023 1:20 PM CDT) Albumin 4.3 3.8 - 5.1 g/dL [facility] Blood 11/20/2023 1:20 PM CDT 11/20/2023 2:24 PM CDT Narrative [facility] - 11/20/2023 2:49 PM CDT Bill to Corporate Kidney Acquisition ??Account Neva CHO LABORATORY Performing Organization Address City/[facility]/ZIP Co de Phone Number [facility] [address] [address] documented in this encounter Visit Diagnoses Diagnosis Chronic kidney disease- Primary Chronic kidney disease, unspecified documented in this encounter
--- OUTSIDE RECORDS SUMMARY | 2023-11-21 09:21 | XMS_ITS | Clinical Summary ---
Author Organization [facility] Address [place], [place] [address] Care Team Providers Care Fine Arts Teacher Name Role Phone Daysi Pires Primary Care [...] disease 09/24/2022 Overview (09/24/2022): HD started at [facility] 09/16/22 HTN (hypertension) 09/15/2022 Acute on chronic kidney failure 09/15/2022 Hypertensive emergency 09/15/2022 DIABETES 01/27/2002 Encounters Date Type Department Care Team Description 10/31/2023 11:35 AM CDT Office Visit [facility] [address] [place] [address] Ning Lopez PA Hospital F/U (Slowly feeling better ) 10/31/2023 Travel 10/26/2023 Patient Outreach [facility] [address] [place] [address] Laura Reyes, RN Primary RN Care Management (Lace 56); Hospital F/U 10/23/2023 5:44 PM CDT - 10/25/2023 5:30 AM CDT Hospital Encounter [facility] [address] [place] [address] Aiden Babin MD [place], [facility] Hospitalists Of Eyad Wallace MD [place], TAMMIE Lyles Lower extremity edema (Primary Dx); ESRD (end stage renal disease) (HC); HTN (hypertension) Discharge Disposition: Home Self Care 10/23/2023 Travel 10/19/2023 Nurse Triage [facility] [address] [place] [address] Daysi Pires PA Chest Pain from Last 3 Months Immunizations Name Administration Dates Next Due Hep B (Hepatitis B (Adult) Recombinant Adjuvanted) 03/15/2023,01/12/2023,12/13/2022,2022 Influenza RIV4 (Age 18+ Year s) PRESERV FREE 05/18/2023 Social History Tobacco Use Types Packs/Day Years Used Date Smoking Tobacco: Former Cigarettes 0.3 23.1 S tarted: 10/30/2000 Passive Smoke Exposure: Past [...] Description 11/30/2023 2:40 PM CDT Office Visit [address] [address] Daysi Pires PA [address] [place] [address] Health Maintenance Due Date Last Done Comments Pneumococcal series for age 6-64 (1 of 2 - PCV) 10/14/1985 Tdap 10/14/1990 Depression screening for age 12+ 1991 HIV for age 15-65 10/14/1994 BMI (ht and wt on same day) for age 18+ 10/14/1997 Hepatitis C screening for ag e 18-79 10/14/1997 Tetanus booster 1999 COVID-19 vaccine series (1 - 2023-25 season) 2023 Influenza for age 9-49 10/28/2023 [...] - 100 mg/dL 10/25/2023 12:33 PM CDT [facility] Mygeni [facility] Blood BLOOD SPECIMEN / Unknown 10/25/2023 12:32 PM CDT 10/25/2023 12:33 PM CDT Sean CHO [facility]STRY [facility] [address] [place] [address], * ECHO TTE COMPLETE WO CONTRAST (10/24/2023 11:01 AM CDT) AORTIC VALVE MEAN PG 4 mmHg LVEDD 5.2 cm EJECTION FRACTION 55 - 60% Anatomical Region Laterality Modality Ultrasound 10/24/2023 9:54 AM CDT Narrative 10/24/2023 11:09 AM CDT ECHOCARDIOGRAM MACO STENI ? Accession#: ?? [id number] : ?1980 43 years Study Date: ?? 10/24/2023 9:54:07 AM Gender: M ?BP: ? 180/83 mmHg Height: 175.00 cm ?BSA: ?2.10 m? ? ? Weight: 95.00 kg ? Tech: ? CJG ? Referring MD: EYAD WALLACE Site: ? [facility] Reading Location: [facility] Patient Location: Inpatient. Procedure: 2D w/ Contrast, [...] detected. 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 Chamber [...] . This study was interpreted by an [facility] accredited facility. ??Final ?? Procedure Note Alex Weaver MD - 10/24/2023 ECHOCARDIOGRAM MACO STEIN : 1980 43 years Study Date: 10/24/2023 9:54:07 AM Gender: M BP: 180/83 mmHg Height: 175.00 cm BSA: 2.10 m? ? ? Weight: 95.00 kg Tech: [facility] Referring MD: EYAD WALLACE Site: [facility] Reading Location: [facility] Patient Location: Inpatient. Procedure: 2D w/ Contrast, [...] detected. 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 Chamber [...] . This study was interpreted by an [facility] accredited facility. Final Eyad Wallace MD ECHO ORD * HBSAG (HBS) (10/24/2023 7:01 AM CDT) HBSAG Nonreactive Nonreactive 10/24/2023 10:42 AM CDT [facility] Blood BLOOD SPECIMEN / Unknown Venipuncture / Unknown 10/24/2023 7:01 AM CDT 10/24/2023 8:32 AM CDT Rabai Husain MD SEND OUT S Performing Organization Address [facility] Co de Phone Number [facility] [address] [address], [place] * (ABNORMAL) Electrolyte panel AM (10/24/2023 7:01 AM CDT) SODIUM 134(L) 136 - 145 mmol/L 10/24/2023 8:56 AM CDT [facility] POTASSIUM 4.1 3.5 - 5.1 mmol/L 10/24/2023 8:56 AM CDT [facility] CHLORIDE 94(L) 98 - 107 mmol/L 10/24/2023 8:56 AM CDT [facility] CO2,TOTAL 28 22 - 29 mmol/L 10/24/2023 8:56 AM CDT [facility] ANION GAP 12 5 - 18 10/24/2023 8:56 AM CDT [facility] Blood BLOOD SPECIMEN / Unknown Venipuncture / Unknown 10/24/2023 7:01 AM CDT 10/24/2023 8:32 AM CDT Eyad Wallace MD CHEMISTRY Performing Organization Address [facility]/ZIP Co de Phone Number [facility] [address] [address], [place] * US VENOUS LOWER EXTREMITY BILATERAL PORTABLE (10/23/2023 9:17 PM CDT) Anatomical Region Laterality Modality LEGS, LEG L, LEG R Ultrasound 10/23/2023 9:38 PM CDT Narrative 10/23/2023 9:38 PM CDT For Patients: ??As a result of the 21st Century Cures Act, medical imaging exams and [...] 6-15 ng/L ng/L 10/23/2023 7:35 PM CDT [facility] Blood BLOOD SPECIMEN / Unknown Butterfly / Unknown 10/23/2023 6:57 PM CDT 10/23/2023 7:09 PM CDT Narrative [facility] - 10/23/2023 7:35 PM CDT [...] department patient population. Aiden Babin MD CHEMISTRY [facility] [address] [place] [address], * (ABNORMAL) CBC W PLT NO DIFF (10/23/2023 6:57 PM CDT) Pathologist [facility] WHITE BLOOD COUNT 6.3 4.5 - 11.0 thou/cu mm 10/23/2023 7:15 PM CDT [facility] RED BLOOD COUNT 2.63(L) 4.30 - 5.90 mil/cu mm 10/23/2023 7:15 PM CDT [facility] HEMOGLOBIN 8.7(L) 13.5 - 17.5 g/dL 10/23/2023 7:15 PM CDT [facility] HEMATOCRIT 25.0(L) 37.0 - 53.0 % 10/23/2023 7:15 PM CDT [facility] MCV 95 80 - 100 fL 10/23/2023 7:15 PM CDT [facility] MCH 33.1 26.0 - 34.0 pg 10/23/2023 7:15 PM CDT [facility] MCHC 34.8 32.0 - 36.0 g/dL 10/23/2023 7:15 PM CDT [facility] RDW 13.2 11.5 - 15.5 % 10/23/2023 7:15 PM CDT [facility] PLATELET COUNT 100(L) 140 - 440 thou/cu mm 10/23/2023 7:15 PM CDT [facility] MPV 12.0(H) 6.5 - 11.0 fL 10/23/2023 7:15 PM CDT [facility] NRBC 0.0 % 10/23/2023 7:15 PM CDT [facility] ABS NRBC 0.0 thou /cu mm 10/23/2023 7:15 PM CDT [facility] Blood BLOOD SPECIMEN / Unknown Butterfly / Unknown 10/23/2023 6:57 PM CDT 10/23/2023 7:09 PM CDT Aiden Babin MD HEMATOLOGY [facility] [address] [place] [address], * (ABNORMAL) HEPATIC FUNCTION PANEL (10/23/2023 6:57 PM CDT) ALBUMIN 3.7(L) 4.0 - 4.9 g/dL 10/23/2023 7:35 PM CDT [facility] PROTEIN,TOTAL 6.9 6.0 - 8.0 g/dL 10/23/2023 7:35 PM CDT [facility] BILIRUBIN,TOTAL 0.5 0.0 - 1.2 mg/dL 10/23/2023 7:35 PM CDT [facility] BILIRUBIN,DIRECT 0.2 0.0 - 0.2 mg/dL 10/23/2023 7:35 PM CDT [facility] BILIRUBIN,INDIRE CT 0.3 0.2 - 0.8 mg/dL 10/23/2023 7:35 PM CDT [facility] ALK PHOSPHATASE 74 40 - 129 IU/L 10/23/2023 7:35 PM CDT [facility] ALT (SGPT) 7(L) 10 - 50 IU/L 10/23/2023 7:35 PM CDT [facility] AST (SGOT) 17 10 - 50 IU/L 10/23/2023 7:35 PM CDT [facility] Blood BLOOD SPECIMEN / Unknown Butterfly / Unknown 10/23/2023 6:57 PM CDT 10/23/2023 7:09 PM CDT Aiden Babin MD CHEMISTRY [facility] [address] [place] [address], * (ABNORMAL) BASIC METABOLIC PANEL (10/23/2023 6:57 PM CDT) SODIUM 131(L) 136 - 145 mmol/L 10/23/2023 7:35 PM CDT [facility] POTASSIUM 4.1 3.5 - 5.1 mmol/L 10/23/2023 7:35 PM CDT [facility] CHLORIDE 90(L) 98 - 107 mmol/L 10/23/2023 7:35 PM CDT [facility] CO2,TOTAL 29 22 - 29 mmol/L 10/23/2023 7:35 PM CDT [facility] ANION GAP 12 5 - 18 10/23/2023 7:35 PM CDT [facility] GLUCOSE 366(H) 70 - 99 mg/dL 10/23/2023 7:35 PM CDT [facility] CALCIUM 8.7 8.6 - 10.0 mg/dL 10/23/2023 7:35 PM CDT [facility] BUN 29(H) 6 - 20 mg/dL 10/23/2023 7:35 PM CDT [facility] CREATININE 6.62(H) 0.70 - 1.20 mg/dL 10/23/2023 7:35 PM CDT [facility] BUN/CREAT RATIO 4(L) 10 - 20 7:35 PM CDT [facility] eGFR 10(L) >90 mL/min/1.7 3m2 10/23/2023 7:35 PM CDT [facility] Comment:As of 2021, eG [...] 7:09 PM CDT Aiden Babin MD [facility]Y [facility] [address] [place] [address], * EKG 12 LEAD (10/23/2023 5:34 PM CDT) Interpretation Normal sinus rhythm Normal ECG Compared to ekg of 3 No Change BEYOND NOW Ventricular Rate 93 BPM BEYOND NOW Atrial Rate 93 BPM BEYOND NOW P-R Interval 170 ms BEYOND NOW QRS Duration 80 ms BEYOND NOW QT 362 ms BEYOND NOW QTc 450 ms BEYOND NOW P [place] 29 degrees BEYOND NOW R [place] 56 degrees BEYOND NOW T [place] 68 degrees BEYOND NOW 10/23/2023 5:34 PM CDT 10/23/2023 11:22 PM CDT Aiden Babin MD EKG ORD BEYOND NOW [place], [place] * (ABNORMAL) LIPID PANEL (12/06/2021 3:00 PM CDT) CHOLESTEROL,TOTAL 163 100 - 199 mg/dL 12/07/2021 3:15 PM CDT [facility] TRIGLYCERIDES 272(H) <150 mg/dL 12/07/2021 3:15 PM CDT [facility] HDL CHOLESTEROL 23(L) >40 mg/dL 3:15 PM CDT [facility] NON-HDL CHOLESTEROL 140 <145 mg/dl 12/07/2021 3:15 PM CDT [facility] CHOL/HDL RATIO 7.09(H) <4.50 12/07/2021 3:15 PM CDT [facility] LDL CHOLESTEROL 86 <=130 mg/dL 12/07/2021 3:15 PM T [facility] VLDL CHOLESTEROL 54(H) <=30 mg/dL 12/07/2021 3:15 PM T [facility] PROVIDER ORDERED STATUS RANDOM 12/07/2021 3:15 PM CDT [facility] Blood BLOOD SPECIMEN / Unknown 12/06/2021 3:00 PM CDT 12/07/2021 2:54 PM CDT Aidee Sher BENDING SHED WORKER CHEMISTRY [facility] [address] [place] [address] from Last 3 Months or Most Recently Relevant to Health Maintenance Advance Directives Documents on File Type Date Recorded Patient Sr. Merchandise Planner Expl anation Healthcare Directive 09/26/2022 023 * Full Code (Latest Code Status on File) Date Activated Date Inactivated Comments 10/23/2023 8:52 PM 10/26/2023 1:29 AM Question Answer Comments Code Status Discussion: Reviewed Preferences * Full Code Date Activated Date Inactivated Comments 09/15/2022 5:47 PM 09/27/2022 6:10 PM Question Answer Comments Code Status Discussion: Reviewed Preferences Care Teams Fine Arts Teacher Relationship Specialty Start Date End Date Daysi Pires [place] [address] [address] PCP - General Physician Toy Department Manager 06/04/23
--- OUTSIDE RECORDS SUMMARY | 2023-11-21 09:21 | XMS_ITS | Encounter Summary ---
Author Organization [facility] Address [address] [facility] [place] [address] Phone Care Team Providers Care Junior Electrical Engineer Name Role Phone Unavailable Primary Care Provider Unavailabl e Encounter Details Date Type Department Care Team (Late st Contact Info) Description 04/25/2023 Abstract Transplant Program [address] [place], [place] [id number] Williams Lindquist, Transplant English Language Learner Teacher [address] [place], [place] [phone] Social History Tobacco Use Types Packs/Day Years [...] [facility] Cardiology Clinic [address] [address] Denae Mckeon MD [address] [place] [address] Scheduled Discharge Disposition: Discharged to home or self care documented as of this encounter Visit Diagnoses Not on filedocumented in this encounter
--- OUTSIDE RECORDS SUMMARY | 2023-11-21 09:21 | XMS_ITS | Clinical Summary ---
Author Organization [facility] Facility Address [address] [facility] [address] [place] [address] Care Team Providers Care Workforce Development Program Director Name Role Phone No, Pcp Primary Care Provider [phone] Encounters Date Type Department Care Team Description 11/08/2023 Orders Only [facility] [address] [facility] [address] [place] [phone] Julito Cortez MD 11/03/2023 Orders Only [facility] [address] [facility] [address] [place] [phone] Julito Cortez MD 09/27/2023 Orders Only [facility] [address] [facility] [address] [place] [phone] Julito Crotez MD 09/26/2023 Treatment [facility] [address] [place] [address] Julito Cortez MD 09/10/2023 Orders Only [facility] [address] [facility] [address] [place] [phone] Julito Cortez MD 08/31/2023 Orders Only [facility] [address] [facility] [address] [place] [phone] Julito Cortez MD 08/29/2023 Orders Only [facility] [address] [place] [address] [place] [phone] Julito Cortez MD 08/22/2023 Orders Only [facility] [address] [facility] [address] [place] [phone] Julito Cortez MD from Last 3 Months [...] 08/31/2023 HEMATOLOGY Routine 08/29/2023 HEMATOLOGY Routine 08/22/2023 from Last 3 Months Results * (ABNORMAL) [facility] (11/08/2023) Only the most recent of8 resultswithin the time period is included. Potassium 7.0(H) 3.5 - 5.1 mEq/L [employer] Comment: Verified by repeat analysis. 11/08/2023 11/10/2023 8:5 8 AM CDT Narrative [facility] - 11/10/2023 Unless otherwise specified, test(s) performed at: [facility], [address] [place] [address], [place] [address] CH[employer] BOOTH ATTENDANT: Grudeep Ricardo M.D., Ph.D For any questions, please call customer service at FREQUENCY:OTHER Resulting Agency Comment Specimen source: Serum Julito Cortez MD LAB BLOOD ORDERABLES [email or web address] See order comments or contact performing lab Unknown, [place] * (ABNORMAL) HD KINETICS (11/03/2023) Only the most recent of3 resultswithin the time period is included. % Urea Reduction 48(L) 65 - 80 % [email or web address] 11/03/2023 11/06/2023 10: 47 AM CDT Narrative Resulting Agency Comment Specimen source: Plasma Julito Cortez MD LAB BLOOD ORDERABLES Performing Organization Address [facility] Co de Phone Number [facility]! [email or web address] See order comments or contact performing lab Unknown, [place] * (ABNORMAL) POST CHEMISTRY (11/03/2023) Only the most recent of3 resultswithin the time period is included. [facility] BUN Post Dialysis 23(H) 6 - 19 mg/dL [facility] 11/03/2023 11/06/2023 10: 47 AM CDT Narrative [facility] - 11/06/2023 Unless otherwise specified, test(s) performed at: [facility], [address] [place] [address], [place] [address] [employer] ATTENDANT: Gurdeep Ricardo M.D., Ph.D For any questions, please call customer service at FREQUENCY:MONTHLY Resulting Agency Comment Specimen source: Plasma Julito Cortez MD LAB BLOOD ORDERABLES Performing Organization Address [facility] de Phone Number [facility] SPECTRA KSN [email or web address] See order comments or contact performing lab Unknown, [place] * (ABNORMAL) HEMATOLOGY (11/03/2023) Only the most recent of5 resultswithin the time period is included. [facility] Neutrophils 54.3 40.0 - 75.0 % [facility] [...] 11/03/2023 11/06/2023 10: 37 AM CDT Narrative [facility] - 11/06/2023 Unless otherwise specified, test(s) performed at: [facility], [address] [place] [address], [place] [address] CH[employer]OTH ATTENDANT: Gurdeep Ricardo M.D., Ph.D For any questions, please call customer service at FREQUENCY:MONTHLY Resulting Agency Comment Specimen source: Blood Julito Cortez MD LAB BLOOD ORDERABLES Performing Organization Address City/[facility]/ZIP Co de Phone Number [facility] See order comments or contact performing lab Unknown, [place] * [facility] Results (11/03/2023) Only the most recent of3 resultswithin the time period is included. Pathologist [facility] Simple KT/V (HHD and NXSTAGE) 0.65 [facility] Center SPKT/V DAUGIRDAS II (HHD & NXSTAGE) 0.81 [facility] WSTDKT/V 2.6 [facility] Center 11/03/2023 11/03/2023 Shireen Ordering Provider LAB BLOOD ORDERABLE [facility] Contact Performing lab Unknown, [place] * (ABNORMAL) SPECIAL CHEMISTRY (08/31/2023) Pathologist [facility] Vitamin B-12 3,903(H) 211 - 911 pg/mL [...] BLOOD BANK TEST ORDERABLES Performing Organization Address [facility] Co de Phone Number [email or web address] See order comments or contact performing lab Unknown, [place] * TRACE ELEMENTS (08/31/2023) Aluminum 5 0 - 10 mcg/L [employer] Comment: This test was developed and its performance characteristics determined by [facility]. It has not been cleared or approved by the FDA. The laboratory is regulated under CLIA as qualified to perform high complexity testing. This test is used for clinical purposes. It should not be regarded as investigational or for research. 08/31/2023 09/01/2023 10: 06 AM CDT Narrative [facility] - 09/01/2023 Unless otherwise specified, test(s) performed at: [facility], [address] [place] [address], [place] [id number] CHANGE BOOTH ATTENDANT: Gurdeep Ricardo M.D., Ph.D For any questions, please call customer service at FREQUENCY:MONTHLY Resulting Agency Comment Specimen source: Serum Julito Cortez MD LAB BLOOD ORDERABLES Performing Organization Address [facility] de Phone Number [email or web address] Labs See order comments or contact performing lab Unknown, [place] from Last 3 Months Care Teams Workforce Development Program Director Relationship Specialty Start Date End Date No, Pcp PCP - General Internal Medicine 09/10/23
--- OUTSIDE RECORDS SUMMARY | 2023-11-21 09:21 | XMS_ITS | Referral Summary ---
Author Organization [facility] Address [address] [place] [address] Phone Care Team Providers Care Drop Hammer Set Up Operator Name Role Phone Unavailable Primary Care Provider Unavailabl e Source Comments [employer] is fully rolled out on [employer]. Last update 07/31/08.Realtime Games Encounters Date Type Department Care Team Description 11/21/2023 Abstract Transplant Program [address] [place] [address] Chinyere Valencia RN 11/20/2023 9:57 AM CDT - 11/20/2023 11:59 PM CDT Hospital Encounter [facility] EKG [address] [place] [address] Blayne Quiroz MD Cosmetologist, Ekg Discharge Disposition: Discharged to home or self care 11/20/2023 Travel 11/20/2023 2:30 PM CDT Nurse Only Transplant Program [address] [place] [address] Neva Carbajal MBBS Rn, [facility]-Pre Recipient Chronic kidney disease (Primary Dx) Discharge Disposition: Discharged to home or self care 11/20/2023 1:30 PM CDT Office Visit Transplant Program [address] [place] [address] Neva Carbajal MBBS Gjesvold, Donna E, RD, LD Encounter for pre-transplant evaluation for kidney transplant (Primary Dx) Discharge Disposition: Discharged to home or self care 11/20/2023 12:29 PM CDT Hospital Encounter [facility] XRAY [address] [place] [address] Blayne Quiroz MD Arrived 11/20/2023 12:08 PM CDT Hospital Encounter [facility] CT [address] [place] [address] Blayne Quiroz MD Arrived 11/20/2023 9:55 AM CDT Hospital Encounter [facility] Echo Lab [address] [place] [address] Blayne Quiroz MD Alvarado, Michelle, HEAVY EQUIPMENT OPERATOR/PAVER Jerel Pena RN 11/01/2023 Documentation Only Transplant Program [address] [place] [address] Williams Lindquist, Transplant Awning Hanger 10/03/2023 Documentation Only Transplant Program [address] [place] [address] Williams Lindquist Transplant Awning Hanger 09/26/2023 Abstract Transplant Program [address] [place] [address] Williams Lindquist Transplant Awning Hanger 09/03/2023 Documentation Only Transplant Program [address] [place] [address] Williams Lindquist Transplant Awning Hanger from Last 3 Months Allergies Active Allergy [...] to chronic kidney disease, on chronic dialysis ([facility]) 10/13/2022 Anxiety 10/13/2022 HTN (hypertension) 09/15/2022 Diabetes mellitus ([facility]) 01/27/2002 Social History Tobacco Use Types Packs/Day [...] [facility] Specialty Center Cardiology Clinic [address] [id number] Denae Mckeon MD [address] [facility] [place] [address] Scheduled Discharge Disposition: Discharged to home or self care Procedures Procedure Name Priority Date/Time Associated Diagnosis [...] 1:20 PM CDT) HIV Antigen-Antibody Nonreactive Nonreactive [facility] Comment:Performance characte ristics have not been established with this test on patients less than 2 years of age. Blood 11/20/2023 1:20 PM CDT 11/20/2023 2:24 PM CDT Narrative [facility] - 11/20/2023 3:20 PM CDT Bill to Corporate Kidney Acquisition Account Neva CHO LABORATORY [facility] [address] [address] * HEPATITIS B CORE TOTAL THEE (11/20/2023 1:20 PM CDT) HBV Core Total Thee Nonreactive Nonreactive [facility] Blood 11/20/2023 1:20 PM CDT 11/20/2023 3:41 PM CDT Narrative [facility] - 11/20/2023 4:11 PM CDT Bill to Corporate Kidney Acquisition Account Neva CHO LABORATORY [facility] [address] [place] [id number] * (ABNORMAL) CBC WITH PLTS/AUTO DIFF (11/20/2023 1:20 PM CDT) Pathologist [facility] WBC 4.75 4.00 - 10.00 k/cmm [facility] RBC 2.54(L) 4.60 - 6.00 m/cmm [facility] Hgb 8.4(L) 13.1 - 17.5 g/dL [facility] Hematocrit 24.7(L) 40.0 - 51.0 % [facility] MCV 97.2 80.0 - 100.0 fL [facility] MCH 33.1(H) 25.0 - 32.0 pg [facility] MCHC 34.0 31.0 - 36.0 g/dL [facility] RDW 14.5 11.5 - 14.5 % [facility] Plt 92(L) 150 - 400 k/cmm [facility] MPV 11.6 6.5 - 12.5 fL [facility] Automated Abs Neutrophil 3.10 1.70 - 6.50 k/cmm [facility] Comment:Preliminary ANC, Fin al Result to Follow Abs Immature Granulocyte 0.01 0.00 - 0.09 k/cmm [facility] Comment:The Immature Granulo cyte Absolute count contains metamyelocytes and myelocytes. Abs Neutrophil 3.10 1.70 - 6.50 k/cmm [facility] Abs Lymphocyte 1.09 0.80 - 4.00 k/cmm [facility] Abs Monocyte 0.41 0.20 - 1.00 k/cmm [facility] Abs Eosinophil 0.13 0.00 - 0.60 k/cmm [facility] Abs Basophil 0.01 0.00 - 0.20 k/cmm [facility] Blood 11/20/2023 1:20 PM CDT 11/20/2023 2:24 PM CDT Narrative [facility] - 11/20/2023 2:35 PM CDT Bill to Corporate Kidney Acquisition ??Account Neva CHO LABORATORY Performing Organization Address City/[facility] Co de Phone Number [facility] [address] [address] * VARICELLA-ZOSTER VIRUS (VZV) ANTIBODY, IGG (11/20/2023 1:20 PM CDT) VZV Ab, IgG Positive [facility] Comment:Positive results ind icate current or past exposure to Varicella-Zoster virus or prior immunization. Blood 11/20/2023 1:20 PM CDT 11/20/2023 2:24 PM CDT Narrative [facility] - 11/21/2023 9:03 AM CDT Bill to Corporate Kidney Acquisition ??Account Neva CHO LABORATORY Performing Organization Address [facility] Co de Phone Number [facility] [address] [address] * MEASLES VIRUS (RUBEOLA) ANTIBODY, IGG (11/20/2023 1:20 PM CDT) Measles Ab, IgG Index 116.00 AU/ml [facility] Measles Ab, IgG Positive [facility] Comment:Positive results (>= 16.5) indicate current or past exposure to Measles virus or prior immunization. Blood 11/20/2023 1:20 PM CDT 11/20/2023 2:24 PM CDT Narrative [facility] - 11/21/2023 9:03 AM CDT Bill to Corporate Kidney Acquisition ??Account Neva CHO LABORATORY Performing Organization Address City/[facility]/ZIP Co de Phone Number [facility] [address] [address] * PROTHROMBIN (PT) & INR (11/20/2023 1:20 PM CDT) PT 11.6 9.0 - 12.5 sec [facility] INR 1.0 0.8 - 1.1 [facility] Comment: Warfarin Therapeutic Range: Standard Intensity: 2.0 - 3.0 High Intensity: 2.5 - 3.5 Blood 11/20/2023 1:20 PM CDT 11/20/2023 2:25 PM CDT Narrative [facility] - 11/20/2023 2:54 PM CDT Bill to Corporate Kidney Acquisition Account Neva CHO LABORATORY [facility] [address] [address] * PHOSPHORUS (11/20/2023 1:20 PM CDT) Pathologist [facility] Phosphorus 3.6 2.5 - 4.5 mg/dL [facility] Blood 11/20/2023 1:20 PM CDT 11/20/2023 2:24 PM CDT Narrative [facility] - 11/20/2023 2:49 PM CDT Bill to Corporate Kidney Acquisition ??Account Neva CHO LABORATORY [facility] [address] [address] * HEPATITIS C ANTIBODY (11/20/2023 1:20 PM CDT) Hep C Thee Nonreactive Nonreactive [facility] Comment:Performance characte ristics have not been established with this test on patients less than 10 years of age. Blood 11/20/2023 1:20 PM CDT 11/20/2023 2:24 PM CDT Narrative [facility] - 11/20/2023 3:19 PM CDT Bill to Corporate Kidney Acquisition ??Account Neva CHO LABORATORY Performing Organization Address City/[facility]/ZIP Co de Phone Number [facility] [address] [address] * HEPATITIS B SURFACE ANTIGEN (11/20/2023 1:20 PM CDT) Pathologist [facility] HBV Surface Ag Nonreactive Nonreactive [facility] Comment: Testing performed at: [facility] [address] [address] Blood 11/20/2023 1:20 PM CDT 11/20/2023 2:24 PM CDT Narrative [facility] - 11/20/2023 3:19 PM CDT Bill to Corporate Kidney Acquisition ??Account Neva CHO LABORATORY Performing Organization Address [facility] Co de Phone Number [facility] [address] [address] * HEPATITIS B SURFACE ANTIBODY (11/20/2023 1:20 PM CDT) Pathologist [facility] HBsAb Quant 83.42 mIU/ml [facility] Comment: The Hepatitis B Surface Antibody quantitation is greater than or equal to 12.00 mIU/mL. This patient has either had an antibody response to a hepatitis B vaccination, received a transfusion or has recovered from a hepatitis B infection. This patient should be considered immune to hepatitis B. HBsAb Interpretation Reactive [facility] Blood 11/20/2023 1:20 PM CDT 11/20/2023 2:24 PM CDT Narrative [facility] - 11/20/2023 3:19 PM CDT Bill to Corporate Kidney Acquisition ??Account Neva CHO LABORATORY Performing Organization Address City/[facility]/ZIP Co de Phone Number [facility] [address] [address] * GGT (11/20/2023 1:20 PM CDT) Pathologist [facility] GGT 13 10 - 71 IU/L [facility] Blood 11/20/2023 1:20 PM CDT 11/20/2023 2:24 PM CDT Narrative [facility] - 11/20/2023 2:49 PM CDT Bill to Corporate Kidney Acquisition ??Account Neva CHO LABORATORY Performing Organization Address City/[facility]/ZIP Co de Phone Number [facility] [address] [address] * CALCIUM, TOTAL (11/20/2023 1:20 PM CDT) Calcium 8.6 8.6 - 10.0 mg/dL [facility] Blood 11/20/2023 1:20 PM CDT 11/20/2023 2:24 PM CDT Narrative [facility] - 11/20/2023 2:49 PM CDT Bill to Corporate Kidney Acquisition ??Account Neva LACKEY LABORATORY Performing Organization Address [facility]/ZIP Co de Phone Number [facility] [address] [address] * BILIRUBIN, TOTAL (ONLY) (11/20/2023 1:20 PM CDT) Bili Total 0.5 <=1.2 mg/dL [facility] Blood 11/20/2023 1:20 PM CDT 11/20/2023 2:24 PM CDT Narrative [facility] - 11/20/2023 2:49 PM CDT Bill to Corporate Kidney Acquisition ??Account Neva LACKEY LABORATORY Performing Organization Address City/[facility]/ZIP Co de Phone Number [facility] [address] [address] * AST (SGOT) (11/20/2023 1:20 PM CDT) AST(SGOT) 15 5 - 40 IU/L [facility] Blood 11/20/2023 1:20 PM CDT 11/20/2023 2:24 PM CDT Narrative [facility] - 11/20/2023 2:49 PM CDT Bill to Corporate Kidney Acquisition ??Account Neva LACKEY LABORATORY Performing Organization Address City/[facility]/ZIP Co de Phone Number [facility] [address] [address] * PTT (APTT) (11/20/2023 1:20 PM CDT) APTT 33.4 25.0 - 37.0 sec [facility] Blood 11/20/2023 1:20 PM CDT 11/20/2023 2:25 PM CDT Narrative [facility] - 11/20/2023 2:54 PM CDT Bill to Corporate Kidney Acquisition Account Neva LACKEY LABORATORY Performing Organization Address [facility] Co de Phone Number [facility] [address] [address] * ALT (SGPT) (11/20/2023 1:20 PM CDT) ALT (SGPT) 9 <=41 IU/L [facility] Blood 11/20/2023 1:20 PM CDT 11/20/2023 2:24 PM CDT Narrative [facility] - 11/20/2023 2:49 PM CDT Bill to Corporate Kidney Acquisition ??Account Neva LACKEY LABORATORY Performing Organization Address City/[facility]/ZIP Co de Phone Number [facility] [address] [address] * ALKALINE PHOSPHATASE (11/20/2023 1:20 PM CDT) Alk Phos 118 40 - 129 IU/L [facility] Comment:No reference range e stablished for patients <18 years old. Blood 11/20/2023 1:20 PM CDT 11/20/2023 2:24 PM CDT Narrative [facility] - 11/20/2023 2:49 PM CDT Bill to Corporate Kidney Acquisition ??Account Neva LACKEY LABORATORY [facility] [address] [address] * ALBUMIN (11/20/2023 1:20 PM CDT) Albumin 4.3 3.8 - 5.1 g/dL [facility] Blood 11/20/2023 1:20 PM CDT 11/20/2023 2:24 PM CDT Narrative [facility] - 11/20/2023 2:49 PM CDT Bill to Corporate Kidney Acquisition ??Account Neva LACKEY LABORATORY Performing Organization Address City/[facility]/ZIP Co de Phone Number [facility] [address] [address] * BLOOD TYPING-ABO/RH (11/20/2023 1:20 PM CDT) ABORHG O POS [facility] Blood 11/20/2023 1:20 PM CDT 11/20/2023 2:29 PM CDT Narrative [facility] - 11/20/2023 3:06 PM CDT Bill to Corporate Kidney Acquisition ??Account Neva Carbajal [facility] TRANSFUSION SER VICES Performing Organization Address City/[facility] Co de Phone Number [address] [address] * XR CHEST 2 VIEWS PA + [...] Stress Echocardiography Report Demographics Patient Name ? WOODARD-UNDER[place]OD ?Height ? 67.01 Inches MACO Patient Number ?? [id number] ?Weight ? 205 Pounds Date of ?1980 ? BSA ?2.04 m^2 Age ?43 ? Tape Number: Gender ? Male ? Study Date ? 11/20/2023 10:51 AM Marketing Production Specialist ?MA ? Ordering Provider ??CORBY CARUSO Referring ? Interpreting ? Hue Flynn MD Physician ? Physician ?[id number] Type of Study: Stress procedure: ECH EXERCISE [...] Insulin . ESRD pre-transplant work-up. Coreg. Norvasc. Cozaar. Due to poor endocardial definition at baseline, Definity was used to enhance endocardial definition. Stress Stress Type: Exercise Mal Peak HR: 109 bpm ?HR Response: Normal Peak BP: 184/71 mmHg ?BP Response: Normal Predicted HR: 176 bpm ? HR BP Product: 80122 % of predicted HR: 62 ? Max [...] Status:Finalized Stress Echocardiography Report Demographics Patient Name VINAY Height 67.01 Inches MACO Patient Number [id number] Weight 205 Pounds Date of 1980 BSA 2.04 m^2 Age 43 Tape Number: Gender Male Study Date 11/20/2023 10:51 AM Marketing Production Specialist PEDRO Ordering Provider CORBY CARUSO Referring Interpreting Hue Flynn MD Physician Physician [id number] Type of Study: Stress procedure: ECH EXERCISE [...] Insulin . ESRD pre-transplant work-up. Coreg. Norvasc. Marniar. Due to poor endocardial definition at baseline, Definity was used to enhance endocardial definition. Stress Stress Type: Exercise Mal Peak HR: 109 bpm HR Response: Normal Peak BP: 184/71 mmHg BP Response: Normal Predicted HR: 176 bpm HR BP Product: 63969 % of predicted HR: 62 Max Exercise: [...] Quiroz MD RAD ECHO Performing Organization Address [facility] Co de Phone Number [facility]ART[facility] * EKG ADULT (12-LEAD) (11/20/2023 10:46 AM CDT) 11/20/2023 10:4 6 AM CDT Impressions [facility] CVIS EKG ORDERS - 11/20/2023 10:46 AM CDT SINUS RHYTHM NORMAL ECG No previous ECG available for comparison. P-R Interval 174 ms QRS Interval 93 ms QT Interval 367 ms QTC Interval 409 ms P [place] 46 QRS [place] 61 T Wave [place] 68 Narrative Procedure Note Jean Liu MD - 11/20/2023 IMPRESSION SINUS RHYTHM NORMAL ECG No previous ECG available for comparison. P-R Interval 174 ms QRS Interval 93 ms QT Interval 367 ms QTC Interval 409 ms P [place] 46 QRS [place] 61 T Wave [place] 68 Blayne Quiroz MD EKG Performing Organization Address [facility] Co de Phone Number [facility] CVIS EKG ORDERS from Last 3 Months CORPORATE,KIDNEY ACQUISITION COST-CURRENT NEW Corporate Other 05/26/2020 Attn Williams Lindquist [facility] [address] [place] [address]
--- OUTSIDE RECORDS SUMMARY | 2023-11-21 09:21 | XMS_ITS | Encounter Summary ---
Author Organization [facility] Address [address] [facility] [place] [address] Phone Care Team Providers Care Paste Mixer Liquid Name Role Phone Unavailable Primary Care Provider Unavailabl e Encounter Details Date Type Department Care Team (Late st Contact Info) Description 09/26/2023 Abstract Transplant Program [address] [place], [place] [address] Williams Lindquist, Transplant Counter Attendant [address] [place], [place] [phone] Social History Tobacco Use Types Packs/Day Years [...] Clinic & Specialty Center Cardiology Clinic [address] [address] Denae Mckeon MD [address] [place] [address] Scheduled Discharge Disposition: Discharged to home or self care documented as of this encounter Visit Diagnoses Not on filedocumented in this encounter
--- OUTSIDE RECORDS SUMMARY | 2023-11-21 09:21 | XMS_ITS | Encounter Summary ---
Author Organization [facility] Address [address] [facility] [address] Phone Care Team Providers Care Lighting Engineering Technician Name Role Phone Unavailable Primary Care Provider Unavailabl e Reason for Visit * Prior Authorization (Routine) - Closed Specialty Diagnoses / Procedures Referred By Amanda t Referred To Contact Radiology / RADIOLOGY Diagnoses Encounter for other preprocedural examination Bill to Elisabeth Kidney Acquistion Cost. Diagnoses Pre-Transplant Evaluation For Esrd (End Stage Renal Disease) [Z01.818] Procedures CHG CT ABDOMEN & PELVIS W/O CONTRAST MATERIAL Ct [facility] [address] [place] [address] Referral ID Status Reason Start Date Expiration Date Visits Re quested Visits Authorized [id number] Closed 1 1 Encounter Details Date Type Department Care Team (Late st Contact Info) Description 11/20/2023 12:08 PM CDT Hospital Encounter [facility] [address] [place], [place] [phone] Blayne Quiroz MD [address] [facility] [address] [place], [place] [phone] Arrived Social History Tobacco Use Types Packs/Day Years [...] & Specialty Center Cardiology Clinic [address] [address] Denae Mckeon MD [address] [facility] [address] [place] [address] Scheduled Discharge Disposition: Discharged to home or self care documented as of this encounter Procedures Procedure Name Priority Date/Time Associated Diagnosis Comments CT ABDOMEN/PELVIS NO IV CON Routine 11/20/2023 12:28 PM CDT Pre-transplant evaluation for ESRD (end stage renal disease) documented in this encounter Results * CT ABDOMEN/PELVIS NO IV CON (11/20/2023 [...] Cronin Blayne Quiroz MD RAD CT BODY documented in this encounter Visit Diagnoses Diagnosis Pre-transplant evaluation for ESRD (end stage renal disease) Other specified pre-operative examination documented in this encounter
--- OUTSIDE RECORDS SUMMARY | 2023-11-21 09:21 | XMS_ITS | Encounter Summary ---
Author Organization [facility] Address [address] [facility] [place] [address] Phone Care Team Providers Care Compliance Assistant Name Role Phone Unavailable Primary Care Provider Unavailabl e Reason for Visit * Reason Comments Medical Nutrition Therapy Encounter Details Date Type Department Care Team (Late Contact Info) Description 11/20/2023 1:30 PM CDT Office Visit Transplant Program [address] [place], [place] [address] Neva Carbajal MBBS [address] [facility] [address] [place], [place] [address] Jade Goode, RD, LD [address] [facility] [address] [place], [place] [phone] Encounter for pre-transplant evaluation for kidney transplant [...] Sign Reading Time Taken Comments Blood Pressure - - Pulse - - Temperature - - Respiratory Rate - - Oxygen Saturation - - Inhaled Oxygen Concentration - - Weight 91 kg (200 lb 9.6 oz) 11/20/2023 12:53 PM CDT Height 170.2 cm (5' 7) 11/20/2023 12:53 PM CDT Body Mass Index 31.42 11/20/2023 12:53 PM CDT documented in this encounter Plan of Treatment Upcoming Encounters Date Type Department Care Team (Late st Contact Info) Description 12/18/2023 11:00 AM CDT Office Visit Clinic & Specialty Center Cardiology Clinic [address] [place] [address] Denae Mckeon MD 701 [facility] [address] [place] [address] Scheduled Discharge Disposition: Discharged to home or self care documented as of this encounter Visit Diagnoses Diagnosis Encounter for pre-transplant evaluation for kidney transplant- Primary documented in this encounter
--- OUTSIDE RECORDS SUMMARY | 2023-11-21 09:21 | XMS_ITS | Encounter Summary ---
Author Organization [facility] Address [address] [place] [address] Phone Care Team Providers Care Chemical Tester Name Role Phone Unavailable Primary Care Provider Unavailabl e Encounter Details Date Type Department Care Team (Late st Contact Info) Description 10/03/2023 Documentation Only Transplant Program [address] [place], [place] [id number] Williams Lindquist Transplant Sales Manager [employer] [address] [place], [place] [id number] Social History Tobacco Use Types Packs/Day Years Used Date Smoking Tobacco: Never Assessed Sex and Gender Information Value Date Recorded Sex Assigned at Not on file Gender Identity Not on file Sexual Orientation Not on file documented as of this encounter Progress Notes * Williams Lindquist Transplant Sales Manager [employer] - 10/03/2023 9:12 AM CDT D/A: Received message from patient's daughter stating his Emergency Medical Assistance insurance isin place again. This was verified by [facility] website. Patient contacted and informed someone will becontacting him to reschedule the appointments that had to be canceled in August. Also talked with himabout applying for Uncompensated Care and patient requested an email be sent to him with the numberto call. Brenna Lindquist Transplant Sales Manager [employer], Tuesday October 03, 2023 09:16 Electronically signed by Williams Lindquist Transplant Sales Manager [employer] at 10/03/2023 9:17 AM CDT documented in this encounter Plan of Treatment Upcoming Encounters Date Type Department Care Team (Late st Contact Info) Description 12/18/2023 11:00 AM CDT Office Visit [facility] Cardiology Clinic [address] [address] Denae Mckeon MD 701 [facility] [address] [place] [address] Scheduled Discharge Disposition: Discharged to home or self care documented as of this encounter Visit Diagnoses Not on filedocumented in this encounter
--- OUTSIDE RECORDS SUMMARY | 2023-11-21 09:21 | XMS_ITS | Encounter Summary ---
Author Organization [facility] Address [address] [place] [address] Phone Care Team Providers Care Freelance Designer Name Role Phone Unavailable Primary Care Provider Unavailabl e Reason for Visit * Prior Authorization (Routine) - Closed Specialty Diagnoses / Procedures Referred By Contac t Referred To Contact CARDIOLOGY ECHO LAB Diagnoses Encounter for other preprocedural examination KIDA Echo and EKG. Diagnoses Pre-Transplant Evaluation For Esrd (End Stage Renal Disease) [Z01.818] Procedures FL ECHO TTHRC R-T 2D W/WO M-MODE REST&STRS CONT ECG FL ECG ROUTINE ECG W/LEAST 12 LDS W/I&R FL ECG ROUTINE ECG W/LEAST 12 LDS TRCG ONLY W/O I&R Echo Lab 701 [facility] [address] [place] [address] Referral ID Status Reason Start Date Expiration Date Visits Re quested Visits Authorized [id number] Closed 2 2 Encounter Details Date Type Department Care Team (Latest Contact Info) Description 11/20/2023 9:57 AM CDT - 11/20/2023 11:59 PM CDT [facility] 701 [facility] [address] [place], [place] [phone] Blayne Quiroz MD 701 [facility] [address] [place] [address] Asset Protection Representative, Ekg [address] [place] [address] Discharge Disposition: Discharged to home or self care Social History Tobacco Use Types Packs/Day Years Used Date Smoking Tobacco: Never Assessed Sex and Gender Information Value Date Recorded Sex Assigned at Not on file Gender Identity Not on file Sexual Orientation Not on file documented as of this encounter Medications at Time of Discharge Medication Sig Dispensed Refills Start Date End Date amLODIPine (NORVASC) 10 mg oral tablet Take 1 tablet (10 mg) by mouth daily. 01/15/2023 carvedilol (COREG) 6.25 mg oral TABS Take 1 tablet (6.25 mg) by mouth twice daily. losartan (COZAAR) 100 mg oral tablet Take 1 tablet (100 mg) by mouth daily. GABApentin (NEURONTIN) 300 mg oral capsule Take 1 capsule (300 mg) by mouth daily as needed (RLS). nephrocaps (TRIPHRO) 1 MG oral capsule Take 1 capsule (1 mg) by mouth daily in the afternoon. sertraline (ZOLOFT) 50 mg oral tablet Take 1 tablet (50 mg) by mouth daily.Total dose 75 mg daily sertraline (ZOLOFT) 25 mg oral tablet Take 3 tablets (75 mg) by mouth daily.Takes as a 50 and 25 mg for total dose of 75 mg sevelamer carbonate (RENVELA) 800 mg oral tablet Take 3 tablets (2,400 mg) by mouth 3 times daily with meals. acetaminophen (TYLENOL) 500 mg oral tablet Take 1 tablet (500 mg) by mouth every 6 hours as needed. insulin ASPART MIX 70/30 (NOVOLOG MIX 70/30) 100 units/mL subcutaneous FlexPen Inject subcutaneously twice daily with meals.30 in the AM 20 in the PM CHOLEcalciferol (VITAMIN D3) 1000 UNIT oral TABS Take 1 tablet (1,000 UNITS) by mouth daily. documented as of this encounter Plan of Treatment Upcoming Encounters Date Type Department Care Team (Late st Contact Info) Description 12/18/2023 11:00 AM CDT Office Visit [facility] Cardiology Clinic [address] [place] [address] Denae Mckeon MD 701 [facility] [address] [place] [address] Scheduled Discharge Disposition: Discharged to home or self care documented as of this encounter Procedures Procedure Name Priority Date/Time Associated Diagnosis Comments EKG ADULT (12-LEAD) Routine 11/20/2023 1 0:46 AM CDT Pre-transplant evaluation for ESRD (end stage renal disease) documented in this encounter Results * EKG ADULT (12-LEAD) (11/20/2023 10:46 AM CDT) 11/20/2023 10:4 6 AM CDT Impressions [facility] CVIS EKG ORDERS - 11/20/2023 10:46 AM CDT SINUS RHYTHM NORMAL ECG No previous ECG available for comparison. P-R Interval 174 ms QRS Interval 93 ms QT Interval 367 ms QTC Interval 409 ms P [place] 46 QRS [place] 61 T Wave [place] 68 Narrative Procedure Note Jean Liu MD - 11/20/2023 IMPRESSION SINUS RHYTHM NORMAL ECG No previous ECG available for comparison. P-R Interval 174 ms QRS Interval 93 ms QT Interval 367 ms QTC Interval 409 ms P [place] 46 QRS [place] 61 T Wave [place] 68 Blayne Quiroz MD EKG [facility] CVIS EKG ORDERS documented in this encounter Visit Diagnoses Diagnosis Pre-transplant evaluation for ESRD (end stage renal disease) Other specified pre-operative examination documented in this encounter
--- OUTSIDE RECORDS SUMMARY | 2023-11-21 09:21 | XMS_ITS | Encounter Summary ---
Author Organization [facility] Address 1 [place] [address] Phone Care Team Providers Care Manager Grocery Name Role Phone Unavailable Primary Care Provider Unavailabl e Reason for Visit * Prior Authorization (Routine) - Closed Specialty Diagnoses / Procedures Referred By Contac t Referred To Contact CARDIOLOGY ECHO LAB Diagnoses Encounter for other preprocedural examination KIDA Echo and EKG. Diagnoses Pre-Transplant Evaluation For Esrd (End Stage Renal Disease) [Z01.818] Procedures CO ECHO TTHRC R-T 2D W/WO M-MODE REST&STRS CONT ECG CO ECG ROUTINE ECG W/LEAST 12 LDS W/I&R CO ECG ROUTINE ECG W/LEAST 12 LDS TRCG ONLY W/O I&R Echo Lab 701 [facility] [address] [place] [address] Referral ID Status Reason Start Date Expiration Date Visits Re quested Visits Authorized [id number] Closed 2 2 Encounter Details Date Type Department Care Team (Late st Contact Info) Description 11/20/2023 9:55 AM CDT Hospital Encounter [facility] Lab 701 [facility] [address] [place] [address] Blayne Quiroz MD [address] [address] Hue Padilla, RATNA [address] [place] [address] Jerel Pena, RN [address] [place] [address] Social History Tobacco Use Types Packs/Day Years [...] - Inhaled Oxygen Concentration - - Weight - - Height - - Body Mass Index - - documented in this encounter Procedure Notes * Jerel Pena RN - 11/20/2023 11:45 AM CDT PROCEDURE NOTE D: Maco Stein underwent an Exercise Stress Echo on 11/20/2023. A: Check two for safety done. PIV for medications. Procedure explained to patient. Patient exercised 9:08. Atropine 1mg IV. R: Patient verbalized understanding of procedure and tolerated well. Patient denied CP. Target HR <85%. Max HR 109. Max BP 184/71. Test stopped for fatigue. P: Patient recovered to baseline HR, BP, and EKG. Report to follow. Patient to follow up with Transplant/Cardiology Clinics. documented in this encounter Plan of Treatment Upcoming Encounters Date Type Department Care Team (Late st Contact Info) Description 12/18/2023 11:00 AM CDT Office Visit [facility] Cardiology Clinic [address] [address] Denae Mckeon MD [address] [place] [address] Scheduled Discharge Disposition: Discharged to home or self care documented as of this encounter Procedures Procedure Name Priority Date/Time Associated Diagnosis Comments ECH EXERCISE STRESS ECHO COMPLETE WITH CONTRAST Routine 11/20/2023 11:45 AM CDT Pre-transplant evaluation for ESRD (end stage renal disease) documented in this encounter Results * ECH EXERCISE STRESS ECHO COMPLETE WITH [...] Stress Echocardiography Report Demographics Patient Name ? JOSE-KRISS ?Height ? 67.01 Inches MACO Patient Number ?? [id number] ?Weight ? 205 Pounds Date of ?1980 ? BSA ?2.04 m^2 Age ?43 ? Tape Number: Gender ? Male ? Study Date ? 11/20/2023 10:51 AM Manager Workers Compensation ?[place] ? Ordering Provider ??CORBY CARUSO Referring ? Interpreting ? Hue Flynn MD Physician ? Physician ?[id number] Type of Study: Stress procedure: ECH EXERCISE [...] Diabetes Insulin . ESRD pre-transplant work-up. Coreg. Romanc. Quynh. Due to poor endocardial definition at baseline, Definity was used to enhance endocardial definition. Stress Stress Type: Exercise Mal Peak HR: 109 bpm ?HR Response: Normal Peak BP: 184/71 mmHg ?BP Response: Normal Predicted HR: 176 bpm ? HR BP Product: 16991 % of predicted HR: 62 ? Max [...] VINAY Height 67.01 Inches MACO Patient Number [id number] Weight 205 Pounds Date of 1980 BSA 2.04 m^2 Age 43 Tape Number: Gender Male Study Date 11/20/2023 10:51 AM Manager Workers Compensation [place] Ordering Provider CORBY CARUSO Referring Interpreting Hue Flynn MD Physician Physician [id number] Type of Study: Stress procedure: ECH EXERCISE [...] Diabetes Insulin . ESRD pre-transplant work-up. Coreg. Norrachealc. Quynh. Due to poor endocardial definition at baseline, Definity was used to enhance endocardial definition. Stress Stress Type: Exercise Mal Peak HR: 109 bpm HR Response: Normal Peak BP: 184/71 mmHg BP Response: Normal Predicted HR: 176 bpm HR BP Product: 33375 % of predicted HR: 62 Max Exercise: [...] improved withstress. Blayne Quiroz MD RAD ECHO [facility] documented in this encounter Visit Diagnoses Diagnosis Pre-transplant evaluation for ESRD (end stage renal disease) Other specified pre-operative examination documented in this encounter Administered Medications Inactive Administered Medications - up to 3 most recent administrations Medication Order MAR Action Action Date Dose Rate Site Atropine (PF) (ATREZA) injection solution 1 mg 1 mg, IV Push, ONE TIME, 1 dose, On Sun11/20/23 at 1130 Given 11/20/2023 11:29 AM CDT 1 mg perflutren lipid microsphere (DEFINITY) suspension 5.016 mg 5.016 mg (rounded from 5.0204 mg = 0.77 mL), IV Push, RAD ONE TIME AUTO ACKNOWLEDGE, 1 dose, On Sun11/20/23 at 1130 Given 11/20/2023 11:29 AM CDT 5.016 mg documented in this encounter
--- OUTSIDE RECORDS SUMMARY | 2023-11-21 09:21 | XMS_ITS | Encounter Summary ---
Author Organization [facility] Address 1 [place] [address] Phone Care Team Providers Care Certified Master Safe Technician Name Role Phone Unavailable Primary Care Provider Unavailabl e Encounter Details Date Type Department Care Team (Late st Contact Info) Description 11/20/2023 12:29 PM CDT Hospital Encounter [facility] [address] [place], [place] [address] Blayne Quiroz MD [address] [place] [id number] Arrived Social History Tobacco Use Types Packs/Day [...] Clinic [facility] Specialty Center Cardiology Clinic [address] [address] Denae Mckeon MD [address] [place] [address] [address] [place] [address] Scheduled Discharge Disposition: Discharged to home or self care documented as of this encounter Procedures Procedure Name Priority Date/Time Associated Diagnosis Comments XR CHEST 2 VIEWS PA + LAT* Routine 11/20/2023 12:42 PM CDT Pre-transplant evaluation for ESRD (end stage renal disease) documented in this encounter Results * XR CHEST 2 VIEWS PA + [...] Claudia Doll Blayne Quiroz MD RAD XRAY documented in this encounter Visit Diagnoses Diagnosis Pre-transplant evaluation for ESRD (end stage renal disease) Other specified pre-operative examination documented in this encounter
--- OUTSIDE RECORDS SUMMARY | 2023-11-21 09:22 | XMS_ITS | Encounter Summary ---
Author Organization [facility] Address [address] [facility] [address] [place] [address] Care Team Providers Care Verification Rep Name Role Phone Unavailable Primary Care Provider Unavailabl e Encounter Details Date Type Department Care Team (Late st Contact Info) Description 08/31/2023 Orders Only [facility] [address] [place] [address] Julito Cortez MD [address] [place] [address] Social History Tobacco Use Types [...] (08/31/2023) Simple KT/V (HHD and NXSTAGE) 0.76 [facility] SPKT/V DAUGIRDAS II (HHD & NXSTAGE) 0.81 [facility] WSTDKT/V 2.0 [facility] 08/31/2023 08/31/2023 Shireen Ordering Provider LAB BLOOD ORDERABLE S [facility] Contact Performing lab Unknown, [place] * TRACE ELEMENTS (08/31/2023) Aluminum 5 0 - 10 mcg/L [facility] Comment: This test was developed and its performance characteristics determined by [facility]. It has not been cleared or approved by the FDA. The laboratory is regulated under CLIA as qualified to perform high complexity testing. This test is used for clinical purposes. It should not be regarded as investigational or for research. 08/31/2023 09/01/2023 10: [address] [facility] - 09/01/2023 Unless otherwise specified, test(s) performed at: [facility], [address] [place] [address], [place] [address] MATERIAL STOCKKEEPER YARD: Gurdeep Ricardo M.D., Ph.D For any questions, please call customer service at FREQUENCY:MONTHLY Resulting Agency Comment Specimen source: Serum Julito Cortez MD LAB BLOOD ORDERABLES [facility] See order comments or contact performing [...] 08/31/2023 09/01/2023 11: [address] [facility] - 09/01/2023 Unless otherwise specified, test(s) performed at: [facility], [address] [place] [address] MATERIAL STOCKKEEPER YARD: Gurdeep Rciardo M.D., Ph.D For any questions, please call customer service at FREQUENCY:MONTHLY Resulting Agency Comment Specimen source: Blood Julito Cortez MD LAB BLOOD ORDERABLES Performing Organization Address [facility] de Phone Number [facility]Better [facility] See order comments or contact performing lab Unknown, [place] * (ABNORMAL) [facility] (08/31/2023) PTH 102(H) 16 - 80 pg/mL [facility] 08/31/2023 09/01/2023 10: [address] [facility] - 09/01/2023 Unless otherwise specified, test(s) performed at: [facility], [address] [place] [address], [place] [address] MATERIAL STOCKKEEPER YARD: Gurdeep Ricardo M.D., Ph.D For any questions, please call customer service at FREQUENCY:MONTHLY Resulting Agency Comment Specimen source: Plasma Julito Cortez MD LAB BLOOD ORDERABLES Performing Organization Address [facility]/ZIP Co de Phone Number [facility] See order comments or contact performing lab Unknown, [place] * (ABNORMAL) HD KINETICS (08/31/2023) Pathologist [facility] % Urea Reduction 53(L) 65 - 80 % [facility] 08/31/2023 09/01/2023 10: 34 AM CDT Narrative Resulting Agency Comment Specimen source: Plasma Julito Cortez MD LAB BLOOD ORDERABLES Performing Organization Address [facility] de Phone Number [facility] See order comments or contact performing lab Unknown, [place] * (ABNORMAL) POST CHEMISTRY (08/31/2023) [facility] BUN Post Dialysis 20(H) 6 - 19 mg/dL [facility] 08/31/2023 09/01/2023 10: 34 AM CDT Narrative [facility] - 09/01/2023 Unless otherwise specified, test(s) performed at: [facility], [address] [place] [address], [place] [address] MATERIAL STOCKKEEPER YARD: Gurdeep Ricardo M.D., Ph.D For any questions, please call customer service at FREQUENCY:MONTHLY Resulting Agency Comment Specimen source: Plasma Julito Cortez MD LAB BLOOD ORDERABLES Performing Organization Address [facility] de Phone Number [facility] See order comments or contact performing lab Unknown, [place] * (ABNORMAL) SPECIAL CHEMISTRY (08/31/2023) [facility] Vitamin B-12 3,903(H) 211 - 911 [...] BLOOD BANK TEST ORDERABLES Performing Organization Address [facility]/ZIP Co de Phone Number [facility] See order comments or [...] 08/31/2023 09/01/2023 10: [address] [facility] - 09/01/2023 Unless otherwise specified, test(s) performed at: [facility], [address] [place] [address], [place] [address] MATERIAL STOCKKEEPER YARD: Gurdeep Ricardo M.D., Ph.D For any questions, please call customer service at FREQUENCY:MONTHLY Resulting Agency Comment Specimen source: Serum Julito Cortez MD LAB BLOOD ORDERABLES [facility] See order comments or contact performing lab Unknown, [place] documented in this encounter Visit Diagnoses Not on filedocumented in this encounter
--- OUTSIDE RECORDS SUMMARY | 2023-11-21 09:22 | XMS_ITS | Encounter Summary ---
Author Organization [facility] Address [address] [facility] [address] [facility] [facility] [address] [place] [address] Care Team Providers Care Pasteurizing Supervisor Name Role Phone No, Pcp Primary Care Provider [phone] Encounter Details Date Type Department Care Team (Late st Contact Info) Description 11/03/2023 Orders Only [facility] [address] [place] [address] Julito Cortez MD [address] [place] [address] Social History Tobacco Use Types [...] Shireen Ordering Provider LAB BLOOD ORDERABLE S [facility] Contact Performing lab Unknown, [place] * (ABNORMAL) [...] 11/06/2023 Unless otherwise specified, test(s) performed at: [facility], [address] [place] [address], [place] [address] REPAIRER WELDING EQUIPMENT: Gurdeep Ricardo M.D., Ph.D For any questions, [...] LAB BLOOD ORDERABLES Performing Organization Address [facility]/ZIP Co de Phone Number [facility] See order comments or contact performing lab Unknown, [place] * (ABNORMAL) POST CHEMISTRY (11/03/2023) BUN Post Dialysis 23(H) 6 - 19 mg/dL [facility] 11/03/2023 11/06/2023 10: 47 AM CDT Narrative [facility] - 11/06/2023 Unless otherwise specified, test(s) performed at: [facility], [address] [place] [address], [place] [address] REPAIRER WELDING EQUIPMENT: Gurdeep Ricardo M.D., Ph.D For any questions, please call customer service at FREQUENCY:MONTHLY Resulting Agency Comment Specimen source: Plasma Julito Cortez MD LAB BLOOD ORDERABLES Performing Organization Address [facility] de Phone Number [facility] [...] 11/03/2023 11/06/2023 10: 28 AM CDT Narrative [facility] - 11/06/2023 Unless otherwise specified, test(s) performed at: [facility], [address] [place] [address], [place] [address] REPAIRER WELDING EQUIPMENT: Gurdeep Ricardo M.D., Ph.D For any questions, please call customer service at FREQUENCY:MONTHLY Resulting Agency Comment Specimen source: Serum Julito Cortez MD LAB BLOOD ORDERABLES Performing Organization Address City/[facility]/ZIP Co de Phone Number [facility] happn [facility] [employer] [facility] See order comments or contact performing lab Unknown, [place] * (ABNORMAL) [facility] Chemistry (11/03/2023) PTH 328(H) 16 - 80 pg/mL [facility] 11/03/2023 11/06/2023 10: 37 AM CDT Narrative [facility] - 11/06/2023 Unless otherwise specified, test(s) performed at: [facility], [address] [place] [address], [place] [address] REPAIRER WELDING EQUIPMENT: Gurdeep Ricardo M.D., Ph.D For any questions, please call customer service at FREQUENCY:MONTHLY Resulting Agency Comment Specimen source: Plasma Julito Cortez MD LAB BLOOD ORDERABLES Performing Organization Address City/[facility]/ZIP Co de Phone Number [facility] happn [facility] [employer] Labs See order comments or contact performing lab Unknown, [place] documented in this encounter Visit Diagnoses Not on filedocumented in this encounter Care Teams Pasteurizing Supervisor Relationship Specialty Start Date End Date No, Pcp PCP - General Internal Medicine 09/10/23 documented as of this encounter
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
--- OUTSIDE RECORDS SUMMARY | 2023-11-21 09:22 | XMS_ITS | Encounter Summary ---
Author Organization [facility] Address [address] [place] [address] Care Team Providers Care Oil Well Cable Tool Driller Name Role Phone Unavailable Primary Care Provider Unavailabl e Encounter Details Date Type Department Care Team (Late st Contact Info) Description 08/13/2023 Treatment [facility] [place] [address] [place] [address] Julito Cortez MD [address] [facility] [address] [place] [address] Social History Tobacco Use Types [...] Name: Maco Stein : 1980 Chart #: [id number] Sex: M This patient was personally seen [...] PM ) BP (sit): 188/99 AP(-) / NUTRITION DIRECTOR: 188/204 Pulse: 78 Chairside data as of [...] 06/04/2023 Access Flow > 1999 1792 1974 STUFFED CASING TIER: Julito Cortez MD LOCATION: [phone] SCHEDULE: M-W- 2nd Shift EDW: kg. DIALYZER: [...] or CP. has appt next week [place] [facility] [place]. 06/15/23: Feels well. no concerns. cost was a barrier to getting the Lokelma, hasn't obtained it,yet. 05/01/23: Feels well. no SOB or CP. No N/v/d. Stable wt. BP's are better. 04/10/23: Feels well, 2nd day with 2 16 g needles in. no SOB or CP. 03/01/23: HD going well. but having L AVF/arm discomfort/numbness, worse on the run. has appt at [facility] [place] Tu with Dr. Solorzano. fingers cool but not cold, no weakness, no pain. Interested in HHD and going to for education tomorrow. referred for [place]p [place] [facility]. 01/24/23: Feels well, got his AVF at [facility] yesterday. no arm pain. no SOB or CP. 12/25/22: BP is better after lowering his meds. still has ringing in his ears at end of every run, and leaving about EDW and no edema or SOB. Going for AVF soon. still can't do Txp eval until insurance is confirmed. 11/24/22: Feels fine today. No SOB or CP. hasn't been to [facility], yet. no N/V. 11/01/22: my second time [...] no SOB or CP Advanced Practitioner Subjective GAS SYSTEM OPERATOR 08/01/2023:Seen on dialysis. Doing well. No SOB, or chest pain reported. Arm access working well; no reported issues. BP slightly elevated. Leaving close to EDW. Potassium improved. Continue plan ofcare. GAS SYSTEM OPERATOR 06/06/2023: Patient seen on dialysis. Doing well. [...] mouth twice a day 07/13/2023 RenaPlex-D (vit b,l-ns-uslz-selen-vit d3-e) 800 mcg-12.5 mg-2,000 unit tablet Take [...] see surgeon 03/06/23 01/24/23 L AVF at [facility] 01/23/23 (see OP note) 12/25/22: has [facility] appt upcoming 11/01/22: needs AVF eval at [facility] 10/02/22: needs AVF eval at [facility] Anemia Assessment HEMOGLOBIN (G/DL) IN BLOOD g/dL [...] same bicarbonate in dialysate. 08/13/23: Labs pending GAS SYSTEM OPERATOR 02/08/2023: Educated on low potassium foods. Bone [...] at goal. Intact PTH is at goal. Pitch Gatherer will adjust binders and vitamin D per protocol and continue to provide dietary education. 08/13/23: Labs pending Cardiovascular Assessment Blood pressures reviewed and are acceptable. Intradialytic weight gains are appropriate. Estimated dry weight is appropriate. Continue same cardiovascular medications. GAS SYSTEM OPERATOR 05/11/2023 decreased to 95.5 kg 03/01/23: increase 96 12/25/22: increase 93.5 11/24/22: increase 92 11/01/22: increase losartan to 100 mg q evening. next would add CCB, edw 93.5 GAS SYSTEM OPERATOR 10/09/2022: Had been still taking hydralazine; not started losartan. Instructed to make change 10/02/22: d/c hydralazine, add Losartan 50 mg q evening. Transplant Status: Patient has been referred. [place] [facility] 04/10/23: got his LEA in Jan and was referred to [facility], still waiting to hear back 11/24/22: not [...]
--- OUTSIDE RECORDS SUMMARY | 2023-11-21 09:22 | XMS_ITS | Encounter Summary ---
Author Organization [facility] Address [address] [place] [address] Care Team Providers Care Graduate Fellow Name Role Phone No, Pcp Primary Care Provider [phone] Encounter Details Date Type Department Care Team (Late st Contact Info) Description 09/10/2023 Orders Only [facility] [place] [address] [place] [address] Julito Cortez MD [address] [place] [address] Social History Tobacco Use Types [...] (09/10/2023) Potassium 6.0(H) 3.5 - 5.1 mEq/L Liquid 09/10/2023 09/11/2023 3:3 0 AM CDT Narrative [facility] - 09/11/2023 Unless otherwise specified, test(s) performed at: [facility], [address] [place] [address], [place] [address] FINAL DRESSING CUTTER: Gurdeep Ricardo M.D., Ph.D For any questions, please call customer service at FREQUENCY:OTHER Resulting Agency Comment Specimen source: Serum Julito Cortez MD LAB BLOOD ORDERABLES [facility] See order comments or contact performing lab Unknown, [place] documented in this encounter Visit Diagnoses Not on filedocumented in this encounter Care Teams Graduate Fellow Relationship Specialty Start Date End Date No, Pcp PCP - General Internal Medicine 09/10/23 documented as of this encounter
--- OUTSIDE RECORDS SUMMARY | 2023-11-21 09:22 | XMS_ITS | Encounter Summary ---
Author Organization [facility] Address [address] [facility] [address] [place] [address] Care Team Providers Care Automobile Radio Repairer Name Role Phone No, Pcp Primary Care Provider [phone] Encounter Details Date Type Department Care Team (Late st Contact Info) Description 09/27/2023 Orders Only [facility] [place] [address] [place] [address] Julito Cortez MD [address] [place] [address] Social History Tobacco Use Types [...] Shireen Ordering Provider LAB BLOOD ORDERABLE S [facility] Center Contact Performing lab Unknown, [...] 09/28/2023 Unless otherwise specified, test(s) performed at: [facility], [address] [place] [address], [place] [address] HOOK LOADER: Gurdeep Ricardo M.D., Ph.D For any questions, [...] ORDERABLES Performing Organization Address [facility]/ZIP Co de Phone Number [facility] See order comments or contact performing lab Unknown, [place] * (ABNORMAL) POST CHEMISTRY (09/27/2023) BUN Post Dialysis 23(H) 6 - 19 mg/dL [facility] 09/27/2023 09/28/2023 3:1 1 AM CDT Narrative [facility] - 09/28/2023 Unless otherwise specified, test(s) performed at: [facility], [address] [place] [address], [place] [address] HOOK LOADER: Gurdeep Ricardo M.D., Ph.D For any questions, please call customer service at FREQUENCY:MONTHLY Resulting Agency Comment Specimen source: Plasma Julito Cortez MD LAB BLOOD ORDERABLES Performing Organization Address [facility] de Phone Number [facility] [...] 09/27/2023 09/28/2023 2:5 6 AM CDT Narrative [facility] - 09/28/2023 Unless otherwise specified, test(s) performed at: [facility], [address] [place] [address] HOOK LOADER: Gurdeep Ricardo M.D., Ph.D For any questions, please call customer service at FREQUENCY:MONTHLY Resulting Agency Comment Specimen source: Serum Julito Cortez MD LAB BLOOD ORDERABLES Performing Organization Address [facility] Co de Phone Number [facility] See order comments or contact performing lab Unknown, [place] * (ABNORMAL) [facility] Chemistry (09/27/2023) PTH 291(H) 16 - 80 pg/mL [facility] 09/27/2023 09/28/2023 3:0 3 AM CDT Narrative [facility] - 09/28/2023 Unless otherwise specified, test(s) performed at: [facility], [address] [place] [address], [place] [address] HOOK LOADER: Gurdeep Ricardo M.D., Ph.D For any questions, please call customer service at FREQUENCY:MONTHLY Resulting Agency Comment Specimen source: Plasma Julito Cortez MD LAB BLOOD ORDERABLES Performing Organization Address [facility]/ZIP Co de Phone Number [facility] [facility] See order comments or contact performing lab Unknown, [place] documented in this encounter Visit Diagnoses Not on filedocumented in this encounter Care Teams Automobile Radio Repairer Relationship Specialty Start Date End Date No, Pcp PCP - General Internal Medicine 09/10/23 documented as of this encounter
--- OUTSIDE RECORDS SUMMARY | 2023-11-21 09:22 | XMS_ITS | Encounter Summary ---
Author Organization [facility] Address [address] [facility] [address] [place] [address] Care Team Providers Care Forensic Analyst Name Role Phone Unavailable Primary Care Provider Unavailabl e Encounter Details Date Type Department Care Team (Late st Contact Info) Description 08/29/2023 Orders Only [facility] [place] [address] [place] [address] Julito Cortez MD [address] [place] [address] Social History Tobacco Use Types [...] (08/29/2023) Hemoglobin 9.3(L) 14.0 - 18.0 g/dL [facility] Hemoglobin x 3 27.9(L) 42.0 - 54.0 % [facility] 08/29/2023 09/01/2023 12: 05 PM CDT Narrative [facility] - 09/01/2023 Unless otherwise specified, test(s) performed at: [facility], [address] [place] [address], [place] [address] HUMAN RESOURCES OFFICE ASSISTANT: Gurdeep Ricardo M.D., Ph.D For any questions, please call customer service at FREQUENCY:OTHER Resulting Agency Comment Specimen source: Blood Julito Cortez MD LAB BLOOD ORDERABLES [facility] See order comments or contact performing lab Unknown, [place] documented in this encounter Visit Diagnoses Not on filedocumented in this encounter
--- OUTSIDE RECORDS SUMMARY | 2023-11-21 09:22 | XMS_ITS | Encounter Summary ---
Author Organization [facility] Address [address] [facility] [address] [place] [address] Care Team Providers Care Recreation Instructor Name Role Phone Unavailable Primary Care Provider Unavailabl e Encounter Details Date Type Department Care Team (Late st Contact Info) Description 08/15/2023 Orders Only [facility] [place] [address] [place] [address] Julito Cortez MD [address] [place] [address] Social History Tobacco Use Types [...] SHIREEN Lab Results (08/15/2023) eKt/V Gotch 1.[address] [facility] nPCR_HD 1.21 [facility] WSTDKT/V 2.5 [facility] eKt/V ([place]) 1.36 [facility] spKt/V Gotch 1.63 [facility] eNPCR 1.12 [facility] spKt/V (Daugirdas II) 1.57 [facility] PCR 79.69 [facility] eKdrt/V 1.40 [facility] 08/15/2023 08/15/2023 Shireen Ordering Provider LAB BLOOD ORDERABLE S [facility] Contact Performing lab Unknown, [place] [...] 08/17/2023 Unless otherwise specified, test(s) performed at: [facility], [address] [place] [address], [place] [address] HEADER SETUP OPERATOR: Gurdeep Ricardo M.D., Ph.D For any [...] MD LAB BLOOD ORDERABLES Performing Organization Address [facility]/ZIP Co de Phone Number [facility] See order comments or contact performing lab Unknown, [place] * POST CHEMISTRY (08/15/2023) BUN Post Dialysis 18 6 - 19 mg/dL [facility] 08/15/2023 08/17/2023 8:5 1 AM CDT Narrative [facility] - 08/17/2023 Unless otherwise specified, test(s) performed at: [facility], [address] [place] [address], [place] [address] HEADER SETUP OPERATOR: Gurdeep Ricardo M.D., Ph.D For any questions, please call customer service at FREQUENCY:MONTHLY Resulting Agency Comment Specimen source: Plasma Julito Cortez MD LAB BLOOD ORDERABLES Performing Organization Address [email or web address]] Co de Phone Number [facility] [...] 08/15/2023 08/17/2023 11: 16 AM CDT Narrative [facility] - 08/17/2023 Unless otherwise specified, test(s) performed at: [facility], [address] [place] [address], [place] [address] HEADER SETUP OPERATOR: Gurdeep Ricardo M.D., Ph.D For any questions, please call customer service at FREQUENCY:MONTHLY Resulting Agency Comment Specimen source: Serum Julito Cortez MD LAB BLOOD ORDERABLES [facility] See order comments or contact performing lab Unknown, [place] * (ABNORMAL) [facility] Chemistry (08/15/2023) PTH 229(H) 16 - 80 pg/mL [facility] 08/15/2023 08/17/2023 8:2 7 AM CDT Narrative [facility] - 08/17/2023 Unless otherwise specified, test(s) performed at: [facility], [address] [place] [address], [place] [address] HEADER SETUP OPERATOR: Gurdeep Ricardo M.D., Ph.D For any questions, please call customer service at FREQUENCY:MONTHLY Resulting Agency Comment Specimen source: Plasma Julito Cortez MD LAB BLOOD ORDERABLES [facility] See order comments or contact performing lab Unknown, [place] documented in this encounter Visit Diagnoses Not on filedocumented in this encounter
--- OUTSIDE RECORDS SUMMARY | 2023-11-21 09:22 | XMS_ITS | Encounter Summary ---
Author Organization [facility] Address [address] [place] [address] Care Team Providers Care Motor Checker Name Role Phone Unavailable Primary Care Provider Unavailabl e Encounter Details Date Type Department Care Team (Late st Contact Info) Description 08/22/2023 Orders Only [facility] [place] [address] [place] [address] Julito Cortez MD [address] [place] [address] Social History Tobacco Use Types [...] (08/22/2023) Hemoglobin 10.1(L) 14.0 - 18.0 g/dL [facility] Hemoglobin x 3 30.3(L) 42.0 - 54.0 % [facility] 08/22/2023 08/23/2023 4:4 8 AM CDT Narrative [facility] - 08/23/2023 Unless otherwise specified, test(s) performed at: [facility], [address] [place] [address], [place] [address] ANALYTICAL ENGINEER: Gurdeep Ricardo M.D., Ph.D For any questions, please call customer service at FREQUENCY:OTHER Resulting Agency Comment Specimen source: Blood Julito Cortez MD LAB BLOOD ORDERABLES [facility] See order comments or contact performing lab Unknown, [place] documented in this encounter Visit Diagnoses Not on filedocumented in this encounter
--- OUTSIDE RECORDS SUMMARY | 2023-11-21 09:22 | XMS_ITS | Encounter Summary ---
Author Organization [facility] Address [address] [facility] [address] [place] [address] Care Team Providers Care Frit Mixer And Burner Name Role Phone No, Pcp Primary Care Provider [phone] Encounter Details Date Type Department Care Team (Late st Contact Info) Description 11/08/2023 Orders Only [facility] [place] [address] [place] [address] Julito Cortez MD [address] [place] [address] Social History Tobacco Use Types [...] 11/10/2023 Unless otherwise specified, test(s) performed at: [facility], [address] [place] [address], [place] [address] DIRECTOR TRADE: Gurdeep Ricardo M.D., Ph.D For any questions, please call customer service at FREQUENCY:OTHER Resulting Agency Comment Specimen source: Serum Julito Cortez MD LAB BLOOD ORDERABLES [facility] See order comments or contact performing lab Unknown, [place] documented in this encounter Visit Diagnoses Not on filedocumented in this encounter Care Teams Frit Mixer And Burner Relationship Specialty Start Date End Date No, Pcp PCP - General Internal Medicine 09/10/23 documented as of this encounter
[2023-11-21 11:19] LABS: Hepatitis B Surface Antigen* Negative (Negative)
[2023-11-21 11:28] LABS: HIV 1/2/P24 Combo Screen* Negative (Negative)
[2023-11-21 11:36] LABS: Hepatitis C Virus Antibody* Negative (Negative)
== END 2023-11-21 09:19 | disposition home or self-care (01) ==
LOC: WOUND 09:18
PROVIDERS: PCP Internal Medicine; Visit Provider Surgery
DX: E11.621 Type 2 diabetes mellitus with foot ulcer (principal); E11.40 Type 2 diabetes mellitus with diabetic neuropathy, unspecified; L97.522 Non-pressure chronic ulcer of other part of left foot with fat layer exposed; Z79.4 Long term (current) use of insulin; Z11.4 Encounter for screening for human immunodeficiency virus [HIV]; Z11.59 Encounter for screening for other viral diseases
CPT/HCPCS: 36415; 86703; 86803; 87340; 97597

== ENCOUNTER 2023-11-28 10:30 | Outpatient (CLI) | payer MEDICAID, SELFPAY ==
--- OUTSIDE RECORDS SUMMARY | 2023-11-28 10:43 | XMS_ITS | Clinical Summary ---
Author Organization [facility] [employer] Address [address] [place] [address] Phone Care Team Providers Care [employer] Installer Name Role Phone Unavailable Primary Care Provider Unavailabl e Source Comments [employer] is fully rolled out on [place]. Last update 07/31/08.[facility] Allergies Active Allergy Reactions Criticality Noted Date [...] chronic kidney disease, on chronic dialysis ([facility]) 10/13/2022 Anxiety 10/13/2022 HTN (hypertension) 09/15/2022 Diabetes mellitus ([facility]) 01/27/2002 Encounters Date Type Department Care Team Description 11/22/2023 Orders Only Transplant Program [address] [place] [address] Chinyere Valencia RN Pre-transplant evaluation for ESRD (end stage renal disease) (Primary Dx) 11/21/2023 Abstract Transplant Program [address] [place] [address] Chinyere Valencia RN 11/20/2023 2:30 PM CDT Nurse Only Transplant Program [address] [place] [address] Neva Carbajal MBBS Rn, [facility]-Pre Recipient Chronic kidney disease (Primary Dx) Discharge Disposition: Discharged to home or self care 11/20/2023 1:30 PM CDT Office Visit Transplant Program [address] [place] [address] Neva Carbajal MBBS Gjesvold, Donna E, RD, LD Encounter for pre-transplant evaluation for kidney transplant (Primary Dx) Discharge Disposition: Discharged to home or self care 11/20/2023 12:29 PM CDT - 11/20/2023 11:59 PM CDT Hospital Encounter [facility] XRAY [address] [place] [address] Blayne Quiroz MD Discharge Disposition: Discharged to home or self care 11/20/2023 12:08 PM CDT - 11/20/2023 11:59 PM CDT Hospital Encounter [facility] [place] [address] [place] [address] Blayne Quiroz MD Discharge Disposition: Discharged to home or self care 11/20/2023 9:57 AM CDT - 11/20/2023 11:59 PM CDT Hospital Encounter [facility] EKG [address] [place] [address] Blayne Quiroz MD Director International, Ekg Discharge Disposition: Discharged to home or self care 11/20/2023 9:55 AM CDT - 11/20/2023 11:59 PM CDT Hospital Encounter [facility] Echo Lab [address] [place] [address] Blayne Quiroz MD Alvarado, Michelle, DIRECTOR LIFE SCIENCES Jerel Pena, clerk guide Disposition: Discharged to home or self care 11/20/2023 Travel 11/01/2023 Documentation Only Transplant Program [address] [place] [address] Williams Lindquist Transplant Life Science Technical Officer 10/03/2023 Documentation Only Transplant Program [address] [place] [address] Williams Lindquist Transplant Life Science Technical Officer 09/26/2023 Abstract Transplant Program [address] [place] [address] Williams Lindquist Transplant Life Science Technical Officer 09/03/2023 Documentation Only Transplant Program [address] [place] [address] Williams Lindquist Transplant Life Science Technical Officer from Last 3 Months Social History Tobacco [...] [facility] [address] [place] [address] Denae Mckeon MD [address] [facility] [address] [place], [place] [id number] Scheduled Discharge Disposition: Discharged to home or self care 01/01/2024 2:00 PM ANTI AIR WARFARE OPERATIONS OFFICER Office Visit Transplant Program [address] [facility] [address] [place], [place] [address] Ning Leiva MD [address] [facility] [address] [place], [place] [address] Scheduled Discharge Disposition: Discharged to home or [...] 09/15/2022, Additional history exists Imm: COVID-19 ( - season) 2023 Imm: Flu (#1) 10/28/2023 05/18/2023 [...] Name Priority Date/Time Associated Diagnosis Comments PC LAB DONOR, CHAGAS SCREEN WITH REFLEX Routine 11/20/2023 1:20 PM CDT PC LAB COCCIDIOIDES ANTIBODY STAT 11/20/2023 1:20 PM CDT Chronic kidney disease PC LAB QUANTIFERON- TB GOLD PLUS STAT 11/20/2023 1:20 PM CDT Chronic kidney disease PC HEP B CORE ANTIBODY STAT 11/20/2023 1:20 PM CDT Chronic kidney disease RUBEOLA ANTIBODY (MEASLES IMMUNE STATUS) STAT 11/20/2023 1:20 PM CDT Chronic kidney disease PC SYPHILIS SCREEN STAT 11/20/2023 1: 20 PM CDT Chronic kidney disease EBV VCA IGG STAT 11/20/2023 1:20 PM CDT Chronic [...] disease) from Last 3 Months Results * DONOR,CHAGAS SCREEN (11/20/2023 1:20 PM CDT) Donor, Chagas Screen Non Reactive Non Reactive [facility] Blood 11/20/2023 1:20 PM CDT 11/23/2023 11:23 AM CDT [facility] Performing Organization Address City/[facility]/ZIP Co de Phone Number Bin1 ATE [address] [place] [address] * COCCIDIOIDES AB SCREEN WITH REFLEX (11/20/2023 1:20 PM CDT) Coccidioides Antibody Negative Negative [facility] [employer] [facility] Comment: Repeat testing on a new sample in 2-3 weeks if clinically indicated. ADDITIONAL INFORMATION This test has been modified from the cloth booker's instructions. Its performance characteristics were determined by [facility] in a manner consistent with CLIA requirements. This test has not been cleared or approved by the U.S. Food and Drug Administration. Test Performed by: [facility] - [address] [address] Logistics And Planning Manager: Sawyer Alejandre Ph.D.; CLIA# [id number] Serum 11/20/2023 1:20 PM CDT 11/20/2023 2:24 PM CDT Narrative [facility] Apaja VIENNA [employer] [facility] - 11/21/2023 8:16 PM CDT Bill to Corporate Kidney Acquisition Account [facility]a [facility] [address] [facility]TR [address] [place] [address] * (ABNORMAL) QUANTIFERON-TB GOLD PLUS (11/20/2023 1:20 PM CDT) Pathologist [facility] QuantiFERON TB Gold Plus Positive( A) Negative [facility] QFT TB 1 0.19 [facility] QFT TB 2 0.35 [facility] QFT TB MITOGEN 9.94 [facility] QFT NIL 0.06 [facility] Blood 11/20/2023 1:20 PM CDT 11/22/2023 7:34 AM CDT Narrative [facility] - 11/22/2023 10:36 AM CDT Bill to Corporate Kidney Acquisition ??Account [facility] [address] [address] * HIV COMBO (11/20/2023 1:20 PM CDT) Pathologist [facility] HIV Antigen-Antibody Nonreactive Nonreactive [facility] Comment:Performance characte ristics have not been established with this test on patients less than 2 years of age. Blood 11/20/2023 1:20 PM CDT 11/20/2023 2:24 PM CDT Narrative [facility] - 11/20/2023 3:20 PM CDT Bill to Corporate Kidney Acquisition Account [facility] [address] [address] * HEPATITIS B CORE TOTAL THEE (11/20/2023 1:20 PM CDT) Pathologist [facility] HBV Core Total Thee Nonreactive Nonreactive [facility] Blood 11/20/2023 1:20 PM CDT 11/20/2023 3:41 PM CDT Narrative [facility] - 11/20/2023 4:11 PM CDT Bill to Corporate Kidney Acquisition Account [facility] Performing Organization Address City/[facility]/ZIP Co de Phone Number [facility] [address] [place] [address] * (ABNORMAL) CBC WITH PLTS/AUTO DIFF (11/20/2023 1:20 PM CDT) WBC 4.75 4.00 - 10.00 k/cmm [facility] RBC 2.54(L) 4.60 - 6.00 m/cmm [facility] Hgb 8.4(L) 13.1 - 17.5 g/dL [facility] Hematocrit 24.7(L) 40.0 - 51.0 % [facility] MCV 97.2 80.0 - 100.0 fL [facility] MCH 33.1(H) 25.0 - 32.0 pg [facility] MCHC 34.0 31.0 - 36.0 g/dL [facility] RDW 14.5 11.5 - 14.5 % [facility] Plt 92(L) 150 - 400 k/cmm [facility] MPV 11.6 6.5 - 12.5 fL [facility] Automated Abs Neutrophil 3.10 1.70 - 6.50 k/cmm [facility] Comment:Preliminary ANC, Fin al Result to Follow Abs Immature Granulocyte 0.01 0.00 - 0.09 k/cmm [facility] Comment:The Immature Granulo cyte Absolute count contains metamyelocytes and myelocytes. Abs Neutrophil 3.10 1.70 - 6.50 k/cmm [facility] Abs Lymphocyte 1.09 0.80 - 4.00 k/cmm [facility] Abs Monocyte 0.41 0.20 - 1.00 k/cmm [facility] Abs Eosinophil 0.13 0.00 - 0.60 k/cmm [facility] Abs Basophil 0.01 0.00 - 0.20 k/cmm [facility] Blood 11/20/2023 1:20 PM CDT 11/20/2023 2:24 PM CDT Narrative [facility] - 11/20/2023 2:35 PM CDT Bill to Corporate Kidney Acquisition ??Account [facility] [address] [address] * VARICELLA-ZOSTER VIRUS (VZV) ANTIBODY, IGG (11/20/2023 1:20 PM CDT) VZV Ab, IgG Positive [facility] Comment:Positive results ind icate current or past exposure to Varicella-Zoster virus or prior immunization. Blood 11/20/2023 1:20 PM CDT 11/20/2023 2:24 PM CDT Narrative [facility] - 11/21/2023 9:03 AM CDT Bill to Corporate Kidney Acquisition ??Account [facility] Performing Organization Address [facility] Co de Phone Number [facility] [address] [address] * MEASLES VIRUS (RUBEOLA) ANTIBODY, IGG (11/20/2023 1:20 PM CDT) Measles Ab, IgG Index 116.00 AU/ml [facility] Measles Ab, IgG Positive [facility] Comment:Positive results (>= 16.5) indicate current or past exposure to Measles virus or prior immunization. Blood 11/20/2023 1:20 PM CDT 11/20/2023 2:24 PM CDT Narrative [facility] - 11/21/2023 9:03 AM CDT Bill to Corporate Kidney Acquisition ??Account [facility] Performing Organization Address City/[facility] Co de Phone Number [facility] [address] [address] * RPR SYPHILIS SCREEN (11/20/2023 1:20 PM CDT) RPR Screen Non-Reactive Non-Reacti ve [facility] RPR Titer Not Reflexed [facility] Blood 11/20/2023 1:20 PM CDT 11/21/2023 10:14 AM CDT Narrative [facility] - 11/21/2023 11:32 AM CDT Bill to Corporate Kidney Acquisition ??Account Nevauziel Jangmeenu [facility] Performing Organization Address City/[facility] Co de Phone Number [facility] [address] [address] * PROTHROMBIN (PT) & INR (11/20/2023 1:20 PM CDT) PT 11.6 9.0 - 12.5 sec [facility] INR 1.0 0.8 - 1.1 [facility] Comment: Warfarin Therapeutic Range: Standard Intensity: 2.0 - 3.0 High Intensity: 2.5 - 3.5 Blood 11/20/2023 1:20 PM CDT 11/20/2023 2:25 PM CDT Narrative [facility] - 11/20/2023 2:54 PM CDT Bill to Corporate Kidney Acquisition Account Neva Solomon [facility] Performing Organization Address [facility] Co de Phone Number [facility] [address] [address] * PHOSPHORUS (11/20/2023 1:20 PM CDT) Phosphorus 3.6 2.5 - 4.5 mg/dL [facility] Blood 11/20/2023 1:20 PM CDT 11/20/2023 2:24 PM CDT Narrative [facility] - 11/20/2023 2:49 PM CDT Bill to Corporate Kidney Acquisition ??Account Nevauziel Jangmeenu [facility] Performing Organization Address City/[facility] Co de Phone Number [facility] [address] [address] * HEPATITIS C ANTIBODY (11/20/2023 1:20 PM CDT) Hep C Thee Nonreactive Nonreactive [facility] Comment:Performance characte ristics have not been established with this test on patients less than 10 years of age. Blood 11/20/2023 1:20 PM CDT 11/20/2023 2:24 PM CDT Narrative [facility] - 11/20/2023 3:19 PM CDT Bill to Corporate Kidney Acquisition ??Account [facility] Performing Organization Address City/[facility]/ZIP Co de Phone Number [facility] [address] [address] * HEPATITIS B SURFACE ANTIGEN (11/20/2023 1:20 PM CDT) Pathologist [facility] HBV Surface Ag Nonreactive Nonreactive [facility] Comment: Testing performed at: [facility] [address] [address] Blood 11/20/2023 1:20 PM CDT 11/20/2023 2:24 PM CDT Narrative [facility] - 11/20/2023 3:19 PM CDT Bill to Corporate Kidney Acquisition ??Account [facility] Performing Organization Address [facility] Co de Phone Number [facility] [address] [address] * HEPATITIS B SURFACE ANTIBODY (11/20/2023 1:20 PM CDT) Pathologist [facility] HBsAb Quant 83.42 mIU/ml [facility] Comment: The Hepatitis B Surface Antibody quantitation is greater than or equal to 12.00 mIU/mL. This patient has either had an antibody response to a hepatitis B vaccination, received a transfusion or has recovered from a hepatitis B infection. This patient should be considered immune to hepatitis B. HBsAb Interpretation Reactive [facility] Blood 11/20/2023 1:20 PM CDT 11/20/2023 2:24 PM CDT Narrative [facility] - 11/20/2023 3:19 PM CDT Bill to Corporate Kidney Acquisition ??Account [facility] Performing Organization Address City/[facility]/ZIP Co de Phone Number [facility] [address] [address] * GGT (11/20/2023 1:20 PM CDT) Pathologist [facility] GGT 13 10 - 71 IU/L [facility] Blood 11/20/2023 1:20 PM CDT 11/20/2023 2:24 PM CDT Narrative [facility] - 11/20/2023 2:49 PM CDT Bill to Corporate Kidney Acquisition ??Account [facility] [address] [address] * (ABNORMAL) EBV VCA IGG (11/20/2023 1:20 PM CDT) [facility] EBV Ab VCA IGG >750.0(H) 0.0 - 21.9 U/mL [employer] Comment: INTERPRETIVE INFORMATION: Parveen-Monsalve Virus Antibody to ?Viral Capsid Antigen, IgG ??17.9 U/mL or less.......Not Detected ??18.0-21.9 U/mL..........Indeterminate - Repeat testing in ?10-14 days may be helpful. ??22.0 U/mL or greater....Detected Performed By: [employer] [address] [place] [id number] Primary Grade Teacher: Salinas Prajapati MD, PhD CLIA Number: [id number] PARVEEN-MONSALVE VIRUS ANTIBODY TO VIRAL CAPSID ANTIGEN IGG REFERENCE INTERVAL: EFFECTIVE 10/11/09 NEGATIVE: ??17.9 U/ML OR LESS EQUIVOCAL: 18.0 - 21.9 U/ML POSITIVE: ??22.0 U/ML OR GREATER Serum 11/20/2023 1:20 PM CDT 11/20/2023 2:24 PM CDT Narrative [facility] - 11/21/2023 7:21 PM CDT Bill to Corporate Kidney Acquisition ??Account [facility] [employer] [address] [place] [phone], * CALCIUM, TOTAL (11/20/2023 1:20 PM CDT) Calcium 8.6 8.6 - 10.0 mg/dL [facility] Blood 11/20/2023 1:20 PM CDT 11/20/2023 2:24 PM CDT Narrative [facility] - 11/20/2023 2:49 PM CDT Bill to Corporate Kidney Acquisition ??Account [facility] Performing Organization Address City/[facility]/ZIP Co de Phone Number [address] [address] * BILIRUBIN, TOTAL (ONLY) (11/20/2023 1:20 PM CDT) Bili Total 0.5 <=1.2 mg/dL [facility] Blood 11/20/2023 1:20 PM CDT 11/20/2023 2:24 PM CDT Narrative [facility] - 11/20/2023 2:49 PM CDT Bill to Corporate Kidney Acquisition ??Account [facility] Performing Organization Address City/[facility]/ZIP Co de Phone Number [facility] [address] [address] * AST (SGOT) (11/20/2023 1:20 PM CDT) AST(SGOT) 15 5 - 40 IU/L [facility] Blood 11/20/2023 1:20 PM CDT 11/20/2023 2:24 PM CDT Narrative [facility] - 11/20/2023 2:49 PM CDT Bill to Corporate Kidney Acquisition ??Account [facility] [address] [address] * PTT (APTT) (11/20/2023 1:20 PM CDT) APTT 33.4 25.0 - 37.0 sec [facility] Blood 11/20/2023 1:20 PM CDT 11/20/2023 2:25 PM CDT Narrative [facility] - 11/20/2023 2:54 PM CDT Bill to Corporate Kidney Acquisition Account [facility] Performing Organization Address City/[facility]/ZIP Co de Phone Number [facility] [address] [address] * ALT (SGPT) (11/20/2023 1:20 PM CDT) ALT (SGPT) 9 <=41 IU/L [facility] Blood 11/20/2023 1:20 PM CDT 11/20/2023 2:24 PM CDT Narrative [facility] - 11/20/2023 2:49 PM CDT Bill to Corporate Kidney Acquisition ??Account [facility] Performing Organization Address [facility]/ZIP Co de Phone Number [facility] [address] [address] * ALKALINE PHOSPHATASE (11/20/2023 1:20 PM CDT) Alk Phos 118 40 - 129 IU/L [facility] Comment:No reference range e stablished for patients <18 years old. Blood 11/20/2023 1:20 PM CDT 11/20/2023 2:24 PM CDT Narrative [facility] - 11/20/2023 2:49 PM CDT Bill to Corporate Kidney Acquisition ??Account [facility] Performing Organization Address City/[facility]/ZIP Co de Phone Number [facility] [address] [address] * ALBUMIN (11/20/2023 1:20 PM CDT) Albumin 4.3 3.8 - 5.1 g/dL [facility] Blood 11/20/2023 1:20 PM CDT 11/20/2023 2:24 PM CDT Narrative [facility] - 11/20/2023 2:49 PM CDT Bill to Corporate Kidney Acquisition ??Account [facility] [address] [address] * BLOOD TYPING-ABO/RH (11/20/2023 1:20 PM CDT) ABORHG O POS [facility] Blood 11/20/2023 1:20 PM CDT 11/20/2023 2:29 PM CDT Narrative [facility] - 11/20/2023 3:06 PM CDT Bill to Corporate Kidney Acquisition ??Account Neva CHO [facility] TRANSFUSION [employer] Performing Organization Address City/[facility] Co de Phone Number [address] [address] * XR CHEST 2 VIEWS PA + [...] the lower lumbar spine. Procedure Note Shilo Croinn MBBS - 11/20/2023 CT abdomen pelvis without [...] ? 67.01 Inches MACO Patient Number ?? [id number] ?Weight ? 205 Pounds Date of ?1980 ? BSA ?2.04 m^2 Age ?43 ? Tape Number: Gender ? Male ? Study Date ? 11/20/2023 10:51 AM Clinical Liaison ?MA ? Ordering Provider ??CORBY CARUSO Referring ? Interpreting ? Hue Flynn MD Physician ? Physician ?[id number] Type of Study: Stress procedure: ECH EXERCISE STRESS ECHO, Color Doppler, Spectral Doppler HR: 84 bpmBP: 184/80 mmHg Patient Status: RoutineTechnical Quality: Adequate visualization Study Location: Echo LabContrast Medium: DefinClearStream. Amount- 0.77 ml Indications Indications for Study: [...] HR: 176 bpm ? HR BP Product: 10111 % of predicted HR: 62 ? Max [...] EMIL Height 67.01 Inches MACO Patient Number [id number] Weight 205 Pounds Date of 1980 BSA 2.04 m^2 Age 43 Tape Number: Gender Male Study Date 11/20/2023 10:51 AM Clinical Liaison MA Ordering Provider CORBY CARUSO Referring Interpreting Hue Flynn MD Physician Physician [id number] Type of Study: Stress procedure: ECH EXERCISE [...] Insulin . ESRD pre-transplant work-up. Coreg. Norvasc. Codiana. Due to poor endocardial definition at baseline, Definity was used to enhance endocardial definition. Stress Stress Type: Exercise Mal Peak HR: 109 bpm HR Response: Normal Peak BP: 184/71 mmHg BP Response: Normal Predicted HR: 176 bpm HR BP Product: 38498 % of predicted HR: 62 Max Exercise: [...] RAD ECHO Performing Organization Address [facility] de Phone Number [facility] * EKG ADULT (12-LEAD) (11/20/2023 10:46 AM CDT) 11/20/2023 10:4 6 AM CDT Impressions [facility] CVIS EKG ORDERS - 11/20/2023 10:46 AM CDT SINUS RHYTHM NORMAL ECG No previous ECG available for comparison. P-R Interval 174 ms QRS Interval 93 ms QT Interval 367 ms QTC Interval 409 ms P [place] 46 QRS [place] 61 T Wave [place] 68 Narrative Procedure Note Jean Liu MD - 11/20/2023 IMPRESSION SINUS RHYTHM NORMAL ECG No previous ECG available for comparison. P-R Interval 174 ms QRS Interval 93 ms QT Interval 367 ms QTC Interval 409 ms P [place] 46 QRS [place] 61 T Wave [place] 68 Blayne Quiroz MD EKG Performing Organization Address [facility] Co de Phone Number [facility] CVIS EKG ORDERS from Last 3 Months CORPORATE,KIDNEY ACQUISITION COST-CURRENT NEW Corporate Other 05/26/2020 Attn Williasm Lindquist [facility] [address] [place] [address]
--- OUTSIDE RECORDS SUMMARY | 2023-11-28 10:44 | XMS_ITS | Encounter Summary ---
Author Organization [facility] Address 1 [place] [address] Phone Care Team Providers Care Edge Inker Uppers Name Role Phone Unavailable Primary Care Provider Unavailabl e Reason for Visit * Prior Authorization (Routine) - Closed Specialty Diagnoses / Procedures Referred By Contac t Referred To Contact CARDIOLOGY ECHO LAB Diagnoses Encounter for other preprocedural examination KIDA Echo and EKG. Diagnoses Pre-Transplant Evaluation For Esrd (End Stage Renal Disease) [Z01.818] Procedures ND ECHO TTHRC R-T 2D W/WO M-MODE REST&STRS CONT ECG ND ECG ROUTINE ECG W/LEAST 12 LDS W/I&R ND ECG ROUTINE ECG W/LEAST 12 LDS TRCG ONLY W/O I&R Echo Lab [address] [facility] [place] [address] Referral ID Status Reason Start Date Expiration Date Visits Re quested Visits Authorized [id number] Closed 2 2 Encounter Details Date Type Department Care Team (Latest Contact Info) Description 11/20/2023 9:55 AM CDT - 11/20/2023 11:59 PM T Hospital Encounter [facility] Echo Lab 701 [facility] [address] [place] [address] Blayne Quiroz MD [address] [address] Hue Padilla, RATNA [address] [place] [address] Jerel Pena, RN [address] [place] [address] Discharge Disposition: Discharged to home or self [...] Index - - documented in this encounter Medications at Time of Discharge [...] mouth daily. documented as of this encounter Procedure Notes * Jerel Pena RN - 11/20/2023 11:45 AM CDT PROCEDURE NOTE D: Jessica Stein underwent an Exercise Stress Echo on [...] [facility] [address] [address] Denae Mckeon MD 701 [facility] O[address] [place] [address] Scheduled Discharge Disposition: Discharged to home or self care 01/01/2024 2:00 PM SPACE PLANNER Office Visit Transplant Program 701 [facility] [address] [place] [address] Ning Leiva MD 701 [facility] [address] [place] [address] Scheduled Discharge Disposition: Discharged to home or [...] Name ? WOODARD-MONTERROSO ?Height ? 67.01 Inches JESSICA Patient Number ?? [id number] ?Weight ? 205 Pounds Date of ?1980 ? BSA ?2.04 m^2 Age ?43 ? Tape Number: Gender ? Male ? Study Date ? 11/20/2023 10:51 AM Driller Portable ?MA ? Ordering Provider ??CORBY CARUSO Referring ? Interpreting ? Hue Flynn MD Physician ? Physician ?[id number] Type of Study: Stress procedure: ECH EXERCISE [...] HR: 176 bpm ? HR BP Product: 61664 % of predicted HR: 62 ? Max [...] Demographics Patient Name VINAY Height 67.01 Inches JESSICA Patient Number [id number] Weight 205 Pounds Date of 1980 BSA 2.04 m^2 Age 43 Tape Number: Gender Male Study Date 11/20/2023 10:51 AM Driller Portable [place] Ordering Provider CORBY CARUSO Referring Interpreting Hue Flynn MD Physician Physician [id number] Type of Study: Stress procedure: ECH EXERCISE [...] Insulin . ESRD pre-transplant work-up. Coreg. Norvasc. Copriyaar. Due to poor endocardial definition at baseline, Definity was used to enhance endocardial definition. Stress Stress Type: Exercise Mal Peak HR: 109 bpm HR Response: Normal Peak BP: 184/71 mmHg BP Response: Normal Predicted HR: 176 bpm HR BP Product: 94274 % of predicted HR: 62 Max Exercise: [...] improved withstress. Blayne Quiroz MD RAD ECHO [facility] [place] ROMERO documented in this encounter Visit Diagnoses Diagnosis [...]
--- OUTSIDE RECORDS SUMMARY | 2023-11-28 10:44 | XMS_ITS | Encounter Summary ---
Author Organization [facility] Address [address] [place] [address] Phone Care Team Providers Care Potline Monitor Name Role Phone Unavailable Primary Care Provider [...] [facility] Card[facility] [address] [place] [address] Denae Mckeon MD [address] [place] [address] Scheduled Discharge Disposition: Discharged to home or self care 01/01/2024 2:00 PM FISHING HAND Office Visit Transplant Program [address] [facility] [address] [place] [address] Ning Leiva MD [address] [place] [address] Scheduled Discharge Disposition: Discharged to home or self care documented as of this encounter Visit Diagnoses Not on filedocumented in this encounter
--- OUTSIDE RECORDS SUMMARY | 2023-11-28 10:44 | XMS_ITS | Encounter Summary ---
Author Organization [facility] Address 1 [place] [address] Phone Care Team Providers Care Purchase Request Editor Name Role Phone Unavailable Primary Care Provider Unavailabl e Encounter Details Date Type Department Care Team (Late st Contact Info) Description 04/25/2023 Abstract Transplant Program [address] [place] [address] [facility] [place] [address] Williams Lindquist, Transplant Internet Architect [address] [place] [address] [id number] Social History Tobacco Use Types Packs/Day Years [...] [facility] [address] [address] Denae Mckeon MD 701 [facility] [address] [place] [address] Scheduled Discharge Disposition: Discharged to home or self care 01/01/2024 2:00 PM ASSISTANT VICE PRESIDENT Office Visit Transplant Program 1 [facility] [address] [place] [address] Ning Leiva MD 701 [facility] [address] [place] [address] Scheduled Discharge Disposition: Discharged to home or self care documented as of this encounter Visit Diagnoses Not on filedocumented in this encounter
--- OUTSIDE RECORDS SUMMARY | 2023-11-28 10:44 | XMS_ITS | Encounter Summary ---
Author Organization [facility] Address [address] [place] [address] Phone Care Team Providers Care Pantry Chef Name Role Phone Unavailable Primary Care Provider Unavailabl e Encounter Details Date Type Department Care Team (Latest Contact Info) Description 11/20/2023 12:29 PM CDT - 11/20/2023 11:59 PM CDT Hospital Encounter [facility] [address] [place], [place] [id number] Blayne Quiroz MD [address] [phone] Discharge Disposition: Discharged to home or self [...] [facility] [address] [address] Denae Mckeon MD 701 [facility] [address] [place] [address] Scheduled Discharge Disposition: Discharged to home or self care 01/01/2024 2:00 PM LANGUAGE SPECIALIST Office Visit Transplant Program 701 [facility] [address] [place] [address] Ning Leiva MD 701 [facility] [address] [place] [address] Scheduled Discharge Disposition: Discharged to home or [...]
--- OUTSIDE RECORDS SUMMARY | 2023-11-28 10:44 | XMS_ITS | Encounter Summary ---
Author Organization [facility] Address [address] [place] [address] Phone Care Team Providers Care Steel Rule Die Maker Apprentice Name Role Phone Unavailable Primary Care Provider Unavailabl e Encounter Details Date Type Department Care Team (Late st Contact Info) Description 09/26/2023 Abstract Transplant Program [address] [place] [address] [facility] [place] [address] Williams Lindquist, Transplant Pipe Crew Foreman [address] [place] [phone] Social History Tobacco Use Types Packs/Day Years [...] [facility] [address] [address] Denae Mckeon MD 701 [facility] [address] [place] [address] Scheduled Discharge Disposition: Discharged to home or self care 01/01/2024 2:00 PM PARTS PULLER Office Visit Transplant Program 701 [facility] [address] [place] [address] Ning Leiva MD 701 [facility] [address] [place] [address] Scheduled Discharge Disposition: Discharged to home or self care documented as of this encounter Visit Diagnoses Not on filedocumented in this encounter
--- OUTSIDE RECORDS SUMMARY | 2023-11-28 10:44 | XMS_ITS | Referral Summary ---
Author Organization [facility] Address [address] [place] [address] Phone Care Team Providers Care Business Performance Manager Name Role Phone Unavailable Primary Care Provider Unavailabl e Source Comments [employer] is fully rolled out on [employer]. Last update 07/31/08.[employer] Encounters Date Type Department Care Team Description 11/22/2023 Orders Only Transplant Program [address] [place] [address] Chinyere Valencia, OLGA LIDIA Pre-transplant evaluation for ESRD (end stage renal disease) (Primary Dx) 11/21/2023 Abstract Transplant Program [address] [place] [address] Chinyere Valencia RN 11/20/2023 9:57 AM CDT - 11/20/2023 11:59 PM CDT Hospital En[place] [facility] [place] [address] [place] [address] Blayne Quiroz MD Master Pilot, Ekg Discharge Disposition: Discharged to home or self care 11/20/2023 Travel 11/20/2023 2:30 PM CDT Nurse Only Transplant Program [address] [place] [address] Neva Carbajal MBBS Rn, [facility]-Pre Recipient Chronic kidney disease (Primary Dx) Discharge Disposition: Discharged to home or self care 11/20/2023 1:30 PM CDT Office Visit Transplant Program [address] [place] [address] Neva Carbajal MBBS Gjesvold, Donna E, RD, LD Encounter for pre-transplant evaluation for kidney transplant (Primary Dx) Discharge Disposition: Discharged to home or self care 11/20/2023 12:29 PM CDT - 11/20/2023 11:59 PM CDT Hospital Encounter [facility] [place] [address] [place] [address] Blayne Quiroz MD Discharge Disposition: Discharged to home or self care 11/20/2023 12:08 PM CDT - 11/20/2023 11:59 PM CDT Hospital Encounter [facility] [place] [address] [place] [address] Blayne Quiroz MD Discharge Disposition: Discharged to home or self care 11/20/2023 9:55 AM CDT - 11/20/2023 11:59 PM CDT Hospital Encounter [facility] [place] Lab [address] [place] [address] Blayne Quiroz MD Alvarado, Michelle, PETROPHYSICAL ENGINEER Jerel Pena, machine gunner Disposition: Discharged to home or self care 11/01/2023 Documentation Only Transplant Program [address] [place] [address] Williams Lindquist Transplant Author 10/03/2023 Documentation Only Transplant Program [address] [place] [address] Williams Lindquist Transplant Author 09/26/2023 Abstract Transplant Program [address] [place] [address] Williams Lindquist Transplant Author 09/03/2023 Documentation Only Transplant Program [address] [place] [address] Williams Lindquist Transplant Author from Last 3 Months Allergies Active Allergy [...] to chronic kidney disease, on chronic dialysis ([facility]) 10/13/2022 Anxiety 10/13/2022 HTN (hypertension) 09/15/2022 Diabetes mellitus ([facility]) 01/27/2002 Social History Tobacco Use Types Packs/Day [...] [facility] [address] [place] [address] Denae Mckeon MD [address] [facility] [address] [place], [place] [address] Scheduled Discharge Disposition: Discharged to home or self care 01/01/2024 2:00 PM INTERIOR SURFACE INSULATION WORKER Office Visit Transplant Program [address] [facility] [address] [place], [place] [address] Ning Leiva MD [address] [facility] [address] [place], [place] [id number] Scheduled Discharge Disposition: Discharged to home or [...] Donor, Chagas Screen Non Reactive Non Reactive [employer] Blood 11/20/2023 1:20 PM CDT 11/23/2023 11:23 AM CDT [facility] [employer] [address] [place] [address] * COCCIDIOIDES AB SCREEN WITH REFLEX (11/20/2023 1:20 PM CDT) Pathologist [facility] Coccidioides Antibody Negative Negative [facility] Comment: Repeat testing on a new sample in 2-3 weeks if clinically indicated. ADDITIONAL INFORMATION This test has been modified from the java sql developer's instructions. Its performance characteristics were determined by [facility] in a manner consistent with CLIA requirements. This test has not been cleared or approved by the U.S. Food and Drug Administration. Test Performed by: [facility] - [address] [address] Pocket And Pulley Machine Operator: Sawyer Alejandre Ph.D.; CLIA# [id number] Serum 11/20/2023 1:20 PM CDT 11/20/2023 2:24 PM CDT Narrative [facility] - 11/21/2023 8:16 PM CDT Bill to Corporate Kidney Acquisition Account [facility] [address] [place] [address] * (ABNORMAL) QUANTIFERON-TB GOLD PLUS (11/20/2023 1:20 PM CDT) Pathologist [facility] QuantiFERON TB Gold Plus Positive( A) Negative [facility] QFT TB 1 0.19 [facility] QFT TB 2 0.35 [facility] QFT TB MITOGEN 9.94 [facility] QFT NIL 0.06 [facility] Blood 11/20/2023 1:20 PM CDT 11/22/2023 7:34 AM CDT Narrative [facility] - 11/22/2023 10:36 AM CDT Bill to Corporate Kidney Acquisition ??Account [facility] Performing Organization Address City/[facility]/ZIP Co de Phone Number [facility] [address] [address] * HIV COMBO (11/20/2023 1:20 PM CDT) Pathologist [facility] HIV Antigen-Antibody Nonreactive Nonreactive [facility] Comment:Performance characte ristics have not been established with this test on patients less than 2 years of age. Blood 11/20/2023 1:20 PM CDT 11/20/2023 2:24 PM CDT Narrative [facility] - 11/20/2023 3:20 PM CDT Bill to Corporate Kidney Acquisition Account [facility] [address] [place] [address] * HEPATITIS B CORE TOTAL THEE (11/20/2023 1:20 PM CDT) Pathologist [facility] HBV Core Total Thee Nonreactive Nonreactive [facility] Blood 11/20/2023 1:20 PM CDT 11/20/2023 3:41 PM CDT Narrative [facility] - 11/20/2023 4:11 PM CDT Bill to [employer] Kidney Acquisition Account [facility] [address] [address] * (ABNORMAL) CBC WITH PLTS/AUTO DIFF (11/20/2023 1:20 PM CDT) [facility] WBC 4.75 4.00 - 10.00 k/cmm [facility] RBC 2.54(L) 4.60 - 6.00 m/cmm [facility] Hgb 8.4(L) 13.1 - 17.5 g/dL [facility] Hematocrit 24.7(L) 40.0 - 51.0 % [facility] MCV 97.2 80.0 - 100.0 fL [facility] MCH 33.1(H) 25.0 - 32.0 pg [facility] MCHC 34.0 31.0 - 36.0 g/dL [facility] RDW 14.5 11.5 - 14.5 % [facility] Plt 92(L) 150 - 400 k/cmm [facility] MPV 11.6 6.5 - 12.5 fL [facility] Automated Abs Neutrophil 3.10 1.70 - 6.50 k/cmm [facility] Comment:Preliminary ANC, Fin al Result to Follow Abs Immature Granulocyte 0.01 0.00 - 0.09 k/cmm [facility] Comment:The Immature Granulo cyte Absolute count contains metamyelocytes and myelocytes. Abs Neutrophil 3.10 1.70 - 6.50 k/cmm [facility] Abs Lymphocyte 1.09 0.80 - 4.00 k/cmm [facility] Abs Monocyte 0.41 0.20 - 1.00 k/cmm [facility] Abs Eosinophil 0.13 0.00 - 0.60 k/cmm [facility] Abs Basophil 0.01 0.00 - 0.20 k/cmm [facility] Blood 11/20/2023 1:20 PM CDT 11/20/2023 2:24 PM CDT Narrative [facility] - 11/20/2023 2:35 PM CDT Bill to Corporate Kidney Acquisition ??Account [facility] Performing Organization Address City/[facility]/ZIP Co de Phone Number [facility] [place] [address] * VARICELLA-ZOSTER VIRUS (VZV) ANTIBODY, IGG (11/20/2023 1:20 PM CDT) VZV Ab, IgG Positive [facility] Comment:Positive results ind icate current or past exposure to Varicella-Zoster virus or prior immunization. Blood 11/20/2023 1:20 PM CDT 11/20/2023 2:24 PM CDT Narrative [facility] - 11/21/2023 9:03 AM CDT Bill to Corporate Kidney Acquisition ??Account [facility] Performing Organization Address [facility]/ZIP Co de Phone Number [facility] [address] [address] * MEASLES VIRUS (RUBEOLA) ANTIBODY, IGG (11/20/2023 1:20 PM CDT) Measles Ab, IgG Index 116.00 AU/ml [facility] Measles Ab, IgG Positive [facility] Comment:Positive results (>= 16.5) indicate current or past exposure to Measles virus or prior immunization. Blood 11/20/2023 1:20 PM CDT 11/20/2023 2:24 PM CDT Narrative [facility] - 11/21/2023 9:03 AM CDT Bill to Corporate Kidney Acquisition ??Account [facility] Performing Organization Address City/State/[facility] Co de Phone Number [facility] [address] [address] * RPR SYPHILIS SCREEN (11/20/2023 1:20 PM CDT) RPR Screen Non-Reactive Non-Reacti ve [facility] RPR Titer Not Reflexed [facility] Blood 11/20/2023 1:20 PM CDT 11/21/2023 10:14 AM CDT Narrative [facility] - 11/21/2023 11:32 AM CDT Bill to [employer] Kidney Acquisition ??Account [facility] Performing Organization Address [facility] Co de Phone Number [facility] [address] [address] * PROTHROMBIN (PT) & INR (11/20/2023 1:20 PM CDT) PT 11.6 9.0 - 12.5 sec [facility] INR 1.0 0.8 - 1.1 [facility] Comment: Warfarin Therapeutic Range: Standard Intensity: 2.0 - 3.0 High Intensity: 2.5 - 3.5 Blood 11/20/2023 1:20 PM CDT 11/20/2023 2:25 PM CDT Narrative [facility] - 11/20/2023 2:54 PM CDT Bill to Corporate Kidney Acquisition Account [facility] Performing Organization Address City/[facility]/ZIP Co de Phone Number [facility] [address] [address] * PHOSPHORUS (11/20/2023 1:20 PM CDT) Phosphorus 3.6 2.5 - 4.5 mg/dL [facility] Blood 11/20/2023 1:20 PM CDT 11/20/2023 2:24 PM CDT Narrative [facility] - 11/20/2023 2:49 PM CDT Bill to Corporate Kidney Acquisition ??Account [facility] Performing Organization Address City/[facility] Co de Phone Number [facility] [address] [address] * HEPATITIS C ANTIBODY (11/20/2023 1:20 PM CDT) Pathologist [facility] Hep C Thee Nonreactive Nonreactive [facility] Comment:Performance characte ristics have not been established with this test on patients less than 10 years of age. Blood 11/20/2023 1:20 PM CDT 11/20/2023 2:24 PM CDT Narrative [facility] - 11/20/2023 3:19 PM CDT Bill to Corporate Kidney Acquisition ??Account [facility] Performing Organization Address [facility] Co de Phone Number [facility] [address] [address] * HEPATITIS B SURFACE ANTIGEN (11/20/2023 1:20 PM CDT) Pathologist [facility] HBV Surface Ag Nonreactive Nonreactive [facility] Comment: Testing performed at: [facility] [address] [address] Blood 11/20/2023 1:20 PM CDT 11/20/2023 2:24 PM CDT Narrative [facility] - 11/20/2023 3:19 PM CDT Bill to [employer] Kidney Acquisition ??Account [facility] Performing Organization Address [facility] Co de Phone Number [facility] [address] [address] * HEPATITIS B SURFACE ANTIBODY (11/20/2023 1:20 PM CDT) Pathologist [facility] HBsAb Quant 83.42 mIU/ml [facility] Comment: The Hepatitis B Surface Antibody quantitation is greater than or equal to 12.00 mIU/mL. This patient has either had an antibody response to a hepatitis B vaccination, received a transfusion or has recovered from a hepatitis B infection. This patient should be considered immune to hepatitis B. HBsAb Interpretation Reactive [facility] Blood 11/20/2023 1:20 PM CDT 11/20/2023 2:24 PM CDT Narrative [facility] - 11/20/2023 3:19 PM CDT Bill to Corporate Kidney Acquisition ??Account Neva Carbajal [facility] Performing Organization Address [facility] Co de Phone Number [facility] [place] [phone] * GGT (11/20/2023 1:20 PM CDT) Pathologist [facility] GGT 13 10 - 71 IU/L [facility] Blood 11/20/2023 1:20 PM CDT 11/20/2023 2:24 PM CDT Narrative [facility] - 11/20/2023 2:49 PM CDT Bill to Corporate Kidney Acquisition ??Account Neva Carbajal [facility] Performing Organization Address [facility]/[employer] de Phone Number [facility] [address] [address] * (ABNORMAL) EBV VCA IGG (11/20/2023 1:20 PM CDT) [facility] EBV Ab VCA IGG >750.0(H) 0.0 - 21.9 U/mL [employer] Comment: INTERPRETIVE INFORMATION: Parveen-Monsalve Virus Antibody to ?Viral Capsid Antigen, IgG ??17.9 U/mL or less.......Not Detected ??18.0-21.9 U/mL..........Indeterminate - Repeat testing in ?10-14 days may be helpful. ??22.0 U/mL or greater....Detected Performed By: [employer] [address] [place] [id number] Program Management Manager: Salinas Prajapati MD, PhD CLIA Number: [id number] PARVEEN-MONSALVE VIRUS ANTIBODY TO VIRAL CAPSID ANTIGEN IGG REFERENCE INTERVAL: EFFECTIVE 10/11/09 NEGATIVE: ??17.9 U/ML OR LESS EQUIVOCAL: 18.0 - 21.9 U/ML POSITIVE: ??22.0 U/ML OR GREATER Serum 11/20/2023 1:20 PM CDT 11/20/2023 2:24 PM CDT Narrative [facility] - 11/21/2023 7:21 PM CDT Bill to Corporate Kidney Acquisition ??Account [facility] [employer] [address] [place] [address], * CALCIUM, TOTAL (11/20/2023 1:20 PM CDT) Calcium 8.6 8.6 - 10.0 mg/dL [facility] Blood 11/20/2023 1:20 PM CDT 11/20/2023 2:24 PM CDT Narrative [facility] - 11/20/2023 2:49 PM CDT Bill to Corporate Kidney Acquisition ??Account [facility] Performing Organization Address City/[facility]/ZIP Co de Phone Number [facility] [address] [address] * BILIRUBIN, TOTAL (ONLY) (11/20/2023 1:20 PM CDT) Bili Total 0.5 <=1.2 mg/dL [facility] Blood 11/20/2023 1:20 PM CDT 11/20/2023 2:24 PM CDT Narrative [facility] - 11/20/2023 2:49 PM CDT Bill to Corporate Kidney Acquisition ??Account [facility] [address] [address] * AST (SGOT) (11/20/2023 1:20 PM CDT) AST(SGOT) 15 5 - 40 IU/L [facility] Blood 11/20/2023 1:20 PM CDT 11/20/2023 2:24 PM CDT Narrative [facility] - 11/20/2023 2:49 PM CDT Bill to Corporate Kidney Acquisition ??Account [facility] [address] [address] * PTT (APTT) (11/20/2023 1:20 PM CDT) APTT 33.4 25.0 - 37.0 sec [facility] Blood 11/20/2023 1:20 PM CDT 11/20/2023 2:25 PM CDT Narrative [facility] - 11/20/2023 2:54 PM CDT Bill to Corporate Kidney Acquisition Account [facility] Performing Organization Address City/[facility] Co de Phone Number [address] [address] * ALT (SGPT) (11/20/2023 1:20 PM CDT) ALT (SGPT) 9 <=41 IU/L [facility] Blood 11/20/2023 1:20 PM CDT 11/20/2023 2:24 PM CDT Narrative [facility] - 11/20/2023 2:49 PM CDT Bill to [employer] Kidney Acquisition ??Account [facility] Performing Organization Address City/[facility]/ZIP Co de Phone Number [address] [address] * ALKALINE PHOSPHATASE (11/20/2023 1:20 PM CDT) Alk Phos 118 40 - 129 IU/L [facility] Comment:No reference range e stablished for patients <18 years old. Blood 11/20/2023 1:20 PM CDT 11/20/2023 2:24 PM CDT Narrative [facility] - 11/20/2023 2:49 PM CDT Bill to Corporate Kidney Acquisition ??Account [facility] Performing Organization Address City/[facility]/ZIP Co de Phone Number [facility] [address] [address] * ALBUMIN (11/20/2023 1:20 PM CDT) Pathologist [facility] Albumin 4.3 3.8 - 5.1 g/dL [facility] Blood 11/20/2023 1:20 PM CDT 11/20/2023 2:24 PM CDT Narrative [facility] - 11/20/2023 2:49 PM CDT Bill to Corporate Kidney Acquisition ??Account [facility] Performing Organization Address [place]/[facility] Co de Phone Number [facility] [address] [address] * BLOOD TYPING-ABO/RH (11/20/2023 1:20 PM CDT) ABORHG O POS [facility] Blood 11/20/2023 1:20 PM CDT 11/20/2023 2:29 PM CDT Narrative [facility] - 11/20/2023 3:06 PM CDT Bill to Corporate Kidney Acquisition ??Account [facility] [employer] Performing Organization Address [facility] Co de Phone Number [facility] [address] [address] * XR CHEST 2 VIEWS PA + [...] the pelvis, likely physiologic. Reading Radiologist: Shilo Cronni Blayne Quiroz MD RAD CT BODY * [...] HEARTLAB 010IS True [facility] 11/20/2023 Narrative [facility] - 11/20/2023 12:00 AM CDT Report Status:Finalized Stress Echocardiography Report Demographics Patient Name ? WOODARD-MONTERROSO ?Height ? 67.01 Inches MACO Patient Number ?? [id number] ?Weight ? 205 Pounds Date of ?1980 ? BSA ?2.04 m^2 Age ?43 ? Tape Number: Gender ? Male ? Study Date ? 11/20/2023 10:51 AM Trainman ?[place] ? Ordering Provider ??CORBY CARUSO Referring ? Interpreting ? Hue Flynn MD Physician ? Physician ?[id number] Type of Study: Stress procedure: ECH EXERCISE [...] Due to poor endocardial definition at baseline, [employer] was used to enhance endocardial definition. Stress Stress Type: Exercise Mal Peak HR: 109 bpm ?HR Response: Normal Peak BP: 184/71 mmHg ?BP Response: Normal Predicted HR: 176 bpm ? HR BP Product: 48991 % of predicted HR: 62 ? Max [...] VINAY Height 67.01 Inches MACO Patient Number [id number] Weight 205 Pounds Date of 1980 BSA 2.04 m^2 Age 43 Tape Number: Gender Male Study Date 11/20/2023 10:51 AM Trainman [place] Ordering Provider CORBY CARUSO Referring Interpreting Hue Flynn MD Physician Physician [id number] Type of Study: Stress procedure: ECH EXERCISE [...] Due to poor endocardial definition at baseline, [employer] was used to enhance endocardial definition. Stress Stress Type: Exercise Mal Peak HR: 109 bpm HR Response: Normal Peak BP: 184/71 mmHg BP Response: Normal Predicted HR: 176 bpm HR BP Product: 44135 % of predicted HR: 62 Max Exercise: [...] improved withstress. Blayne Quiroz MD RAD ECHO [facility] * EKG ADULT (12-LEAD) (11/20/2023 10:46 AM CDT) 11/20/2023 10:4 6 AM CDT Impressions [facility] EKG ORDERS - 11/20/2023 10:46 AM CDT SINUS RHYTHM NORMAL ECG No previous ECG available for comparison. P-R Interval 174 ms QRS Interval 93 ms QT Interval 367 ms QTC Interval 409 ms P Wright 46 QRS Wright 61 T Wave Wright 68 Narrative Procedure Note Jean Liu MD - 11/20/2023 IMPRESSION SINUS RHYTHM NORMAL ECG No previous ECG available for comparison. P-R Interval 174 ms QRS Interval 93 ms QT Interval 367 ms QTC Interval 409 ms P Wright 46 QRS Wright 61 T Wave Wright 68 Blayne Quiroz MD EKG [facility] EKG ORDERS from Last 3 Months CORPORATE,KIDNEY ACQUISITION COST-CURRENT NEW Corporate Other 05/26/2020 Attn [facility] [address] [place] [address]"
--- OUTSIDE RECORDS SUMMARY | 2023-11-28 10:44 | XMS_ITS | Encounter Summary ---
Author Organization [facility] Address [address] [place] [address] Phone Care Team Providers Care Human Service Coordinator Name Role Phone Unavailable Primary Care Provider Unavailabl e Reason for Visit * Reason Comments Pre Kidney Transplant Evaluation Encounter Details Date Type Department Care Team (Late st Contact Info) Description 11/20/2023 2:30 PM CDT Nurse Only Transplant Program [address] [place], [place] [phone] Neva Carbajal MBBS [address] [facility] [address] [place], [place] [id number] RnCali-Pre Recipient Chronic kidney disease (Primary Dx) [...] and have labs drawn. Also meeting with bistro server. Discussed when labs results would be returned. Chinyere Valencia RN, 11/20/2023 2:25 PM documented in this encounter Miscellaneous Notes * Transplant Care Plan - Chinyere Valencia RN - 11/20/2023 2:30 PM CDT Transplant-Recipient Plan Transplant-Pre Care Plan Maco Stein Recipient Care Plan Pretransplant I) Referral received by patient financial services coordinator from Nephrologists, dialysis unit or patient. II) Patient scheduled to attend information session. III) Patient attends information session which includes Science Specialist, Transplant Electrophysiology Technologist, Feltmaker And Weigher, Living Donor Coordinator, Transplant Surgeon, Piping Drafter, and Explosive Technician Discussed the following with potential transplant candidate and their family members: IV) A) Advantages and disadvantages of transplant V) B) Possible complications post transplant ) C)Medications and their side effects VII) D) Hospitalization and frequency of clinic visits post-op VIII) E) Requirement that all out-of-town patients remain in [facility] for at least 2 weeks post-op, typically [...] with platelets, Anti HBSs, HBsAg, HepB core bhakti Anti HIV, Anti HCV only patients not [...] (ALA) 2) Anti HBs, HbsAg, HepB core bhakti, Anti-HIV, and Anti HCV within one year [...] waitlisted, patient's name is placed on the [facility] kidney donor waitlist. Patient notification letter sent and if patient is predialysis arrangements are made for ALA levels to be drawn 2. Patient's Explosive Technician notified 3. Patient's dialysis unit notified and [...] 2. Patient notification letter sent. 3. Patient???s Explosive Technician notified 4. Patient???s dialysis unit notified Transplant-Recipient Plan Transplant-Pre Care Plan Maco PompashellyUnderwood WAITLIST MANAGEMENT I) Monthly Updates a. Brief summary of patient's transplant status sent out by the Transplant Clinic monthly to the dialysis unit or if predialysis to the Explosive Technician. II) Semiannual Check Calls Patient contacted by phone by transplant steam boiler fireman to verify current: contact information, insurance, health [...] [facility] Clinic [address] [address] Denae Mckeon MD [address] [place], [place] [address] Scheduled Discharge Disposition: Discharged to home or self care 01/01/2024 2:00 PM GLUE WHEEL OPERATOR Office Visit Transplant Program [address] [place], [place] [phone] Ning Leiva MD [address] [facility] [address] [place] [address] Scheduled Discharge Disposition: Discharged to home or [...] 1: 20 PM CDT Chronic kidney disease PROTHROMBIN (PT) [...] 11/20/2023 1:20 PM CDT Chronic kidney disease EBV VCA [...] disease documented in this encounter Results * DONOR,CHAGAS SCREEN (11/20/2023 1:20 PM CDT) Donor, Chagas Screen Non Reactive Non Reactive [employer] Blood 11/20/2023 1:20 PM CDT 11/23/2023 11:23 AM CDT Neva [facility] [employer] [address] [place] [address] * COCCIDIOIDES AB SCREEN WITH REFLEX (11/20/2023 1:20 PM CDT) Coccidioides Antibody Negative Negative [facility] Comment: Repeat testing on a new sample in 2-3 weeks if clinically indicated. ADDITIONAL INFORMATION This test has been modified from the pca assisted living's instructions. Its performance characteristics were determined by [facility] in a manner consistent with CLIA requirements. This test has not been cleared or approved by the U.S. Food and Drug Administration. Test Performed by: [facility] - [address] [address] Product Development Intern: Sawyer Alejandre Ph.D.; CLIA# [id number] Serum 11/20/2023 1:20 PM CDT 11/20/2023 2:24 PM CDT Narrative [facility] - 11/21/2023 8:16 PM CDT Bill to Corporate Kidney Acquisition Account Neva Carbajal [facility] [address] [place] [address] * (ABNORMAL) QUANTIFERON-TB GOLD PLUS (11/20/2023 1:20 PM CDT) QuantiFERON TB Gold Plus Positive( A) Negative [facility] QFT TB 1 0.19 [facility] QFT TB 2 0.35 [facility] QFT TB MITOGEN 9.94 [facility] QFT NIL 0.06 [facility] Blood 11/20/2023 1:20 PM CDT 11/22/2023 7:34 AM CDT Narrative [facility] - 11/22/2023 10:36 AM CDT Bill to Corporate Kidney Acquisition ??Account Neva [facility] [address] [address] * HEPATITIS B CORE TOTAL BHAKTI (11/20/2023 1:20 PM CDT) HBV Core Total Bhakti Nonreactive Nonreactive [facility] Blood 11/20/2023 1:20 PM CDT 11/20/2023 3:41 PM CDT Narrative [facility] - 11/20/2023 4:11 PM CDT Bill to Corporate Kidney Acquisition Account Neva [facility] [address] [address] * MEASLES VIRUS (RUBEOLA) ANTIBODY, IGG (11/20/2023 1:20 PM CDT) Measles Ab, IgG Index 116.00 AU/ml [facility] Measles Ab, IgG Positive [facility] Comment:Positive results (>= 16.5) indicate current or past exposure to Measles virus or prior immunization. Blood 11/20/2023 1:20 PM CDT 11/20/2023 2:24 PM CDT Narrative [facility] - 11/21/2023 9:03 AM CDT Bill to Corporate Kidney Acquisition ??Account Neva CHO [facility]ORAT[facility] Performing Organization Address City/[facility] [address]/ZIP Co de Phone Number [facility] [address] [address] * RPR SYPHILIS SCREEN (11/20/2023 1:20 PM CDT) RPR Screen Non-Reactive Non-Reacti ve [facility] RPR Titer Not Reflexed [facility] Blood 11/20/2023 1:20 PM CDT 11/21/2023 10:14 AM CDT Narrative [facility] - 11/21/2023 11:32 AM CDT Bill to Corporate Kidney Acquisition ??Account Neva [facility] [address] [address] * (ABNORMAL) EBV VCA IGG (11/20/2023 1:20 PM CDT) EBV Ab VCA IGG >750.0(H) 0.0 - 21.9 U/mL [employer] Comment: INTERPRETIVE INFORMATION: Parveen-Monsalve Virus Antibody to ?Viral Capsid Antigen, IgG ??17.9 U/mL or less.......Not Detected ??18.0-21.9 U/mL..........Indeterminate - Repeat testing in ?10-14 days may be helpful. ??22.0 U/mL or greater....Detected Performed By: [facility] [address] [place] [address] Continuous Improvement Manager: Salinas Prajapati MD, PhD CLIA Number: [id number] PARVEEN-MONSALVE VIRUS ANTIBODY TO VIRAL CAPSID ANTIGEN IGG REFERENCE INTERVAL: EFFECTIVE 10/11/09 NEGATIVE: ??17.9 U/ML OR LESS EQUIVOCAL: 18.0 - 21.9 U/ML POSITIVE: ??22.0 U/ML OR GREATER Serum 11/20/2023 1:20 PM CDT 11/20/2023 2:24 PM CDT Narrative [facility] - 11/21/2023 7:21 PM CDT Bill to Corporate Kidney Acquisition ??Account Neva CHO [facility]ORAT[facility] [employer] [address] [place] [address], * VARICELLA-ZOSTER VIRUS (VZV) ANTIBODY, IGG (11/20/2023 1:20 PM CDT) Pathologist [facility] VZV Ab, IgG Positive [facility] Comment:Positive results ind icate current or past exposure to Varicella-Zoster virus or prior immunization. Blood 11/20/2023 1:20 PM CDT 11/20/2023 2:24 PM CDT Narrative [facility] - 11/21/2023 9:03 AM CDT Bill to Corporate Kidney Acquisition ??Account Neva L[facility]ORAT[facility] [address] [address] * PHOSPHORUS (11/20/2023 1:20 PM CDT) Phosphorus 3.6 2.5 - 4.5 mg/dL [facility] Blood 11/20/2023 1:20 PM CDT 11/20/2023 2:24 PM CDT Narrative [facility] - 11/20/2023 2:49 PM CDT Bill to Corporate Kidney Acquisition ??Account Neva L[facility] LABORAT[facility] Performing Organization Address [facility] [address]/ZIP Co de Phone Number [facility] [address] [address] * HIV COMBO (11/20/2023 1:20 PM CDT) HIV Antigen-Antibody Nonreactive Nonreactive [facility] Comment:Performance characte ristics have not been established with this test on patients less than 2 years of age. Blood 11/20/2023 1:20 PM CDT 11/20/2023 2:24 PM CDT Narrative [facility] - 11/20/2023 3:20 PM CDT Bill to Corporate Kidney Acquisition Account Neva LAC[facility] LABORATORY Performing Organization Address City/[facility] [address]/ZIP Co de Phone Number [facility] [address] [address] * HEPATITIS C ANTIBODY (11/20/2023 1:20 PM CDT) Hep C Bhakti Nonreactive Nonreactive [facility] Comment:Performance characte ristics have not been established with this test on patients less than 10 years of age. Blood 11/20/2023 1:20 PM CDT 11/20/2023 2:24 PM CDT Narrative [facility] - 11/20/2023 3:19 PM CDT Bill to Corporate Kidney Acquisition ??Account Neva [facility] [address] [address] * HEPATITIS B SURFACE ANTIGEN (11/20/2023 1:20 PM CDT) HBV Surface Ag Nonreactive Nonreactive [facility] Comment: Testing performed at: [facility] [address] [address] Blood 11/20/2023 1:20 PM CDT 11/20/2023 2:24 PM CDT Narrative [facility] - 11/20/2023 3:19 PM CDT Bill to Corporate Kidney Acquisition ??Account Neva [facility] Performing Organization Address [facility] [address]/[facility] Co de Phone Number [facility] [address] [address] * HEPATITIS B SURFACE ANTIBODY (11/20/2023 1:20 PM CDT) HBsAb Quant 83.42 mIU/ml [facility] Comment: The Hepatitis B Surface Antibody quantitation is greater than or equal to 12.00 mIU/mL. This patient has either had an antibody response to a hepatitis B vaccination, received a transfusion or has recovered from a hepatitis B infection. This patient should be considered immune to hepatitis B. HBsAb Interpretation Reactive [facility] Blood 11/20/2023 1:20 PM CDT 11/20/2023 2:24 PM CDT Narrative [facility] - 11/20/2023 3:19 PM CDT Bill to Corporate Kidney Acquisition ??Account Neva [facility] Performing Organization Address City/[facility] [address]/ZIP Co de Phone Number [facility] [address] [address] * PTT (APTT) (11/20/2023 1:20 PM CDT) APTT 33.4 25.0 - 37.0 sec [facility] Blood 11/20/2023 1:20 PM CDT 11/20/2023 2:25 PM CDT Narrative [facility] - 11/20/2023 2:54 PM CDT Bill to Corporate Kidney Acquisition Account Neva L[facility] LABOR[facility] [address] [address] * PROTHROMBIN (PT) & INR (11/20/2023 1:20 PM CDT) PT 11.6 9.0 - 12.5 sec [facility] INR 1.0 0.8 - 1.1 [facility] Comment: Warfarin Therapeutic Range: Standard Intensity: 2.0 - 3.0 High Intensity: 2.5 - 3.5 Blood 11/20/2023 1:20 PM CDT 11/20/2023 2:25 PM CDT Narrative [facility] - 11/20/2023 2:54 PM CDT Bill to Corporate Kidney Acquisition Account Neva [facility]ORAT[facility] Performing Organization Address [facility] [address]/[facility] Co de Phone Number [facility] [address] [address] * GGT (11/20/2023 1:20 PM CDT) GGT 13 10 - 71 IU/L [facility] Blood 11/20/2023 1:20 PM CDT 11/20/2023 2:24 PM CDT Narrative [facility] - 11/20/2023 2:49 PM CDT Bill to Corporate Kidney Acquisition ??Account Neva LACKEY LABORAT[facility] Performing Organization Address City/[facility] [address]/ZIP Co de Phone Number [facility] [address] [address] * (ABNORMAL) CBC WITH PLTS/AUTO DIFF (11/20/2023 1:20 PM CDT) WBC 4.75 4.00 - 10.00 k/cmm [facility] RBC 2.54(L) 4.60 - 6.00 m/cmm [facility] Hgb 8.4(L) 13.1 - 17.5 g/dL [facility] Hematocrit 24.7(L) 40.0 - 51.0 % [facility] MCV 97.2 80.0 - 100.0 fL [facility] MCH 33.1(H) 25.0 - 32.0 pg [facility] MCHC 34.0 31.0 - 36.0 g/dL [facility] RDW 14.5 11.5 - 14.5 % [facility] Plt 92(L) 150 - 400 k/cmm [facility] MPV 11.6 6.5 - 12.5 fL [facility] Automated Abs Neutrophil 3.10 1.70 - 6.50 k/cmm [facility] Comment:Preliminary ANC, Fin al Result to Follow Abs Immature Granulocyte 0.01 0.00 - 0.09 k/cmm [facility] Comment:The Immature Granulo cyte Absolute count contains metamyelocytes and myelocytes. Abs Neutrophil 3.10 1.70 - 6.50 k/cmm [facility] Abs Lymphocyte 1.09 0.80 - 4.00 k/cmm [facility] Abs Monocyte 0.41 0.20 - 1.00 k/cmm [facility] Abs Eosinophil 0.13 0.00 - 0.60 k/cmm [facility] Abs Basophil 0.01 0.00 - 0.20 k/cmm [facility] Blood 11/20/2023 1:20 PM CDT 11/20/2023 2:24 PM CDT Narrative [facility] - 11/20/2023 2:35 PM CDT Bill to Corporate Kidney Acquisition ??Account Neva [facility] [address] [place] [address] * CALCIUM, TOTAL (11/20/2023 1:20 PM CDT) Calcium 8.6 8.6 - 10.0 mg/dL [facility] Blood 11/20/2023 1:20 PM CDT 11/20/2023 2:24 PM CDT Narrative [facility] - 11/20/2023 2:49 PM CDT Bill to Corporate Kidney Acquisition ??Account Neva [facility] [address] [address] * BLOOD TYPING-ABO/RH (11/20/2023 1:20 PM CDT) ABORHG O POS [facility] Blood 11/20/2023 1:20 PM CDT 11/20/2023 2:29 PM CDT Narrative [facility] - 11/20/2023 3:06 PM CDT Bill to Corporate Kidney Acquisition ??Account Neva CHO LAB TRANSFUSION SER VICES Performing Organization Address [facility] [address]/[facility] Co de Phone Number [address] [address] * BILIRUBIN, TOTAL (ONLY) (11/20/2023 1:20 PM CDT) Bili Total 0.5 <=1.2 mg/dL [facility] Blood 11/20/2023 1:20 PM CDT 11/20/2023 2:24 PM CDT Narrative [facility] - 11/20/2023 2:49 PM CDT Bill to Corporate Kidney Acquisition ??Account Neva [facility] Performing Organization Address City/[facility] [address]/ZIP Co de Phone Number [address] [address] * AST (SGOT) (11/20/2023 1:20 PM CDT) AST(SGOT) 15 5 - 40 IU/L [facility] Blood 11/20/2023 1:20 PM CDT 11/20/2023 2:24 PM CDT Narrative [facility] - 11/20/2023 2:49 PM CDT Bill to Corporate Kidney Acquisition ??Account Neva [facility] [address] [address] * ALT (SGPT) (11/20/2023 1:20 PM CDT) ALT (SGPT) 9 <=41 IU/L [facility] Blood 11/20/2023 1:20 PM CDT 11/20/2023 2:24 PM CDT Narrative [facility] - 11/20/2023 2:49 PM CDT Bill to Corporate Kidney Acquisition ??Account Neva [facility] Performing Organization Address City/[facility] [address]/ZIP Co de Phone Number [facility] [address] [address] * ALKALINE PHOSPHATASE (11/20/2023 1:20 PM CDT) Alk Phos 118 40 - 129 IU/L [facility] Comment:No reference range e stablished for patients <18 years old. Blood 11/20/2023 1:20 PM CDT 11/20/2023 2:24 PM CDT Narrative [facility] - 11/20/2023 2:49 PM CDT Bill to Corporate Kidney Acquisition ??Account Neva [facility] [address] [address] * ALBUMIN (11/20/2023 1:20 PM CDT) Albumin 4.3 3.8 - 5.1 g/dL [facility] Blood 11/20/2023 1:20 PM CDT 11/20/2023 2:24 PM CDT Narrative [facility] - 11/20/2023 2:49 PM CDT Bill to Corporate Kidney Acquisition ??Account Neva [facility] [address] [place] [phone] documented in this encounter Visit Diagnoses Diagnosis Chronic kidney disease- Primary Chronic kidney disease, unspecified documented in this encounter
--- OUTSIDE RECORDS SUMMARY | 2023-11-28 10:44 | XMS_ITS | Encounter Summary ---
Author Organization [facility] Address [address] [facility] [place] [address] Phone Care Team Providers Care Guide Excursion Name Role Phone Unavailable Primary Care Provider Unavailabl e Reason for Referral * Consult/Test/Treat (Routine) - New Request Specialty Diagnoses / Procedures Referred By Amanda t Referred To Contact Infectious Diseases / INFECTIOUS DISEASES Diagnoses Pre-transplant evaluation for ESRD (end stage renal disease) Neva Carbajal MBBS [address] [facility] [address] [place] [address] Referral ID Status Reason Start Date Expiration Date V isits Requested Visits Authorized [id number] New Request 11/22/2023 11/22/2024 1 1 Encounter Details Date Type Department Care Team (Late Contact Info) Description 11/22/2023 Orders Only Transplant Program [address] [place] [address] [address] [place] [address] Chinyere Valencia, OLGA LIDIA [facility] [address] [place] [address] Pre-transplant evaluation for ESRD (end stage renal disease) (Primary Dx) Social History Tobacco Use Types Packs/Day Years Used Date Smoking Tobacco: Never Assessed Sex and Gender Information Value Date Recorded Sex Assigned at Not on file Gender Identity Not on file Sexual Orientation Not on file documented as of this encounter Plan of Treatment Upcoming Encounters Date Type Department Care Team (Late Contact Info) Description 12/18/2023 11:00 AM CDT Office Visit Clinic [facility] Specialty Center Cardiology Clinic [address] [address] Denae Mckeon MD [address] [facility] [place] [address] Scheduled Discharge Disposition: Discharged to home or self care 01/01/2024 2:00 PM BENEFITS ASSISTANT Office Visit Transplant Program [address] [facility] [address] [place] [address] Ning Leiva MD [address] [facility] [place] [address] Scheduled Discharge Disposition: Discharged to home or self care Scheduled Referrals Name Type Priority Associated Diagnoses Orde r Schedule REFERRAL TO INFECTIOUS DISEASE Referral Routine Pre-transplant evaluation for ESRD (end stage renal disease) Ordered: 11/22/2023 documented as of this encounter Visit Diagnoses Diagnosis Pre-transplant evaluation for ESRD (end stage renal disease)- Primary Other specified pre-operative examination documented in this encounter
--- OUTSIDE RECORDS SUMMARY | 2023-11-28 10:44 | XMS_ITS | Encounter Summary ---
Author Organization [facility] Address [address] [place] [address] Phone Care Team Providers Care Field Sales Consultant Name Role Phone Unavailable Primary Care Provider Unavailabl e Encounter Details Date Type Department Care Team (Late st Contact Info) Description 09/03/2023 Documentation Only Transplant Program [address] [place], [place] [phone] Williams Lindquist Transplant Full Stack Software Engineer [address] [place], [place] [id number] Social History Tobacco Use Types Packs/Day Years Used Date Smoking Tobacco: Never Assessed Sex and Gender Information Value Date Recorded Sex Assigned at Not on file Gender Identity Not on file Sexual Orientation Not on file documented as of this encounter Progress Notes * Williams Lindquist Transplant Full Stack Software Engineer - 09/03/2023 9:30 AM CDT D/A: Patient's Emergency Medical Assistance checked in [facility] website and found to be inactive. Patient was called with franchise manager and given this information. Patient responded in Urdu and does not need an machine lay out worker. Patient stated he believes everything has been covered. Explained that his coverage was checked in the Medical Assistance website which his ID number was entered and the response listed his name and that coverage is inactive. Patient was told to contact [facility] appears he needs to renew his coverage. Patient was also told that appointments scheduled for 09/04/2023 will be canceled. Patient was requested to call when his coverage is in place again. document coordinator aware. Brenna Lindquist Transplant Full Stack Software Engineer, Sunday September 03, 2023 09:35 documented in this encounter Plan of Treatment Upcoming Encounters Date Type Department Care Team (Late st Contact Info) Description 12/18/2023 11:00 AM CDT Office Visit Clinic [facility] Specialty Center Cardiology Clinic [address] [address] Denae Mckeon MD [address] [place], [place] [phone] Scheduled Discharge Disposition: Discharged to home or self care 01/01/2024 2:00 PM DIETARY AIDE COOK Office Visit Transplant Program [address] [facility] [address] [place], [place] [address] Ning Leiva MD [address] [place] [address] Scheduled Discharge Disposition: Discharged to home or self care documented as of this encounter Visit Diagnoses Not on filedocumented in this encounter
--- OUTSIDE RECORDS SUMMARY | 2023-11-28 10:44 | XMS_ITS | Encounter Summary ---
Author Organization [facility] Address [address] [place] [address] Phone Care Team Providers Care Electrical Engineering Designer Name Role Phone Unavailable Primary Care Provider Unavailabl e Encounter Details Date Type Department Care Team (Late st Contact Info) Description 10/03/2023 Documentation Only Transplant Program [address] [place], [place] [address] Williams Lindquist Transplant Power Shovel Operator [address] [place], [place] [address] Social History Tobacco Use Types Packs/Day Years Used Date Smoking Tobacco: Never Assessed Sex and Gender Information Value Date Recorded Sex Assigned at Not on file Gender Identity Not on file Sexual Orientation Not on file documented as of this encounter Progress Notes * Williams Lindquist Transplant Power Shovel Operator - 10/03/2023 9:12 AM CDT D/A: Received message from patient's daughter stating his Emergency Medical Assistance insurance isin place again. This was verified by [facility] website. Patient contacted and informed someone will becontacting him to reschedule the appointments that had to be canceled in August. Also talked with himabout applying for Uncompensated Care and patient requested an email be sent to him with the numberto call. Brenna Lindquist Transplant Power Shovel Operator, Tuesday October 03, 2023 09:16 documented in this encounter Plan of Treatment Upcoming Encounters Date Type Department Care Team (Late st Contact Info) Description 12/18/2023 11:00 AM CDT Office Visit [facility] Cardiology Clinic [address] [address] Denae Mckeon MD [address] [place] [address] Scheduled Discharge Disposition: Discharged to home or self care 01/01/2024 2:00 PM DRIVER RETRAINING INSTRUCTOR Office Visit Transplant Program [address] [place] [address] Ning Leiva MD [address] [place] [address] Scheduled Discharge Disposition: Discharged to home or self care documented as of this encounter Visit Diagnoses Not on filedocumented in this encounter
--- OUTSIDE RECORDS SUMMARY | 2023-11-28 10:44 | XMS_ITS | Encounter Summary ---
Author Organization [facility] Address 701 [facility] [place] [address] Phone Care Team Providers Care Accounting Software Specialist Name Role Phone Unavailable Primary Care Provider Unavailabl e Reason for Visit * Prior Authorization (Routine) - Closed Specialty Diagnoses / Procedures Referred By Contac t Referred To Contact CARDIOLOGY ECHO LAB Diagnoses Encounter for other preprocedural examination KIDA Echo and EKG. Diagnoses Pre-Transplant Evaluation For Esrd (End Stage Renal Disease) [Z01.818] Procedures SC ECHO TTHRC R-T 2D W/WO M-MODE REST&STRS CONT ECG SC ECG ROUTINE ECG W/LEAST 12 LDS W/I&R SC ECG ROUTINE ECG W/LEAST 12 LDS TRCG ONLY W/O I&R Echo Lab 701 [facility] [address] [place] [address] Referral ID Status Reason Start Date Expiration Date Visits Re quested Visits Authorized [id number] Closed 2 2 Encounter Details Date Type Department Care Team (Latest Contact Info) Description 11/20/2023 9:57 AM CDT - 11/20/2023 11:59 PM CDT [facility] 701 [facility] [address] [place], [place] [id number] Blayne Quiroz MD 701 [facility] [address] [place] [address] Plater Printed Circuit Board Panels, Ekg 701 [place] [address] Discharge Disposition: Discharged to home or self [...] & Specialty Center Cardiology Clinic [address] [place] [address] Denae Mckeon MD [address] [place], [place] [address] Scheduled Discharge Disposition: Discharged to home or self care 01/01/2024 2:00 PM CULTURE MEDIA LABORATORY ASSISTANT Office Visit Transplant Program [address] [place] [address] Ning Leiva MD [address] [address] Scheduled Discharge Disposition: Discharged to home or self care documented as of this encounter Procedures Procedure Name Priority Date/Time Associated Diagnosis Comments EKG ADULT (12-LEAD) Routine 11/20/2023 1 0:46 AM CDT Pre-transplant evaluation for ESRD (end stage renal disease) documented in this encounter Results * EKG ADULT (12-LEAD) (11/20/2023 10:46 AM CDT) 11/20/2023 10:4 6 AM CDT Impressions [facility] CV[facility] EKG ORDERS - 11/20/2023 10:46 AM CDT SINUS RHYTHM NORMAL ECG No previous ECG available for comparison. P-R Interval 174 ms QRS Interval 93 ms QT Interval 367 ms QTC Interval 409 ms P [place] 46 QRS [place] 61 T Wave [place] 68 Narrative Procedure Note Jean Liu MD - 11/20/2023 IMPRESSION SINUS RHYTHM NORMAL ECG No previous ECG available for comparison. P-R Interval 174 ms QRS Interval 93 ms QT Interval 367 ms QTC Interval 409 ms P [place] 46 QRS [place] 61 T Wave [place] 68 Blayne Quiroz MD EKG [facility] CVIS EKG ORDERS documented in this encounter Visit Diagnoses Diagnosis Pre-transplant evaluation for ESRD (end stage renal disease) Other specified pre-operative examination documented in this encounter
--- OUTSIDE RECORDS SUMMARY | 2023-11-28 10:44 | XMS_ITS | Encounter Summary ---
Author Organization [facility] Address [address] [place] [address] Phone Care Team Providers Care Cutlery Grinder Name Role Phone Unavailable Primary Care Provider Unavailabl e Encounter Details Date Type Department Care Team (Late Contact Info) Description 11/01/2023 Documentation Only Transplant Program [address] [place] [address] Williams Lindquist Transplant Manager Assurance [address] [place], [place] [phone] Social History Tobacco Use Types Packs/Day Years Used Date Smoking Tobacco: Never Assessed Sex and Gender Information Value Date Recorded Sex Assigned at Not on file Gender Identity Not on file Sexual Orientation Not on file documented as of this encounter Progress Notes * Williams Lindquist Transplant Manager Assurance - 11/01/2023 1:48 PM CDT D/A: The following secure email was sent to Rin, patient's mental health social worker. Lopez Gar, Sorry to bother you, but I'm wondering if you have received the [facility] approved renewed ESRD Care Planon Maco Stein? He has transplant evaluation appointments scheduled and I'm afraid we'll have to cancel them if we don't have a current Care Plan in place. Thanks for your help, Williams Hui: Response pending. Brenna Lindquist Transplant Manager Assurance, October 13:49 documented in this encounter Plan of Treatment Upcoming Encounters Date Type Department Care Team (Late st Contact Info) Description 12/18/2023 11:00 AM CDT Office Visit [facility] Specialty Center Cardiology Clinic [address] [place] [address] Denae Mckeon MD [address] [place] [address] Scheduled Discharge Disposition: Discharged to home or self care 01/01/2024 2:00 PM CLIENT CARE CONSULTANT Office Visit Transplant Program 701 [facility] [address] [place] [address] Ning Leiva MD [address] [place], [place] [address] Scheduled Discharge Disposition: Discharged to home or self care documented as of this encounter Visit Diagnoses Not on filedocumented in this encounter
--- OUTSIDE RECORDS SUMMARY | 2023-11-28 10:44 | XMS_ITS | Encounter Summary ---
Author Organization [facility] Address [address] [facility] [place] [address] Phone Care Team Providers Care Bolt Header Name Role Phone Unavailable Primary Care Provider Unavailabl e Reason for Visit * Reason Comments Medical Nutrition Therapy Encounter Details Date Type Department Care Team (Late Contact Info) Description 11/20/2023 1:30 PM CDT Office Visit Transplant Program [address] [place], [place] [address] Neva Carbajal MBBS [address] [facility] [address] [id number] Jade Goode, RD, LD [address] [facility] R[address] [id number] Encounter for pre-transplant evaluation for kidney transplant [...] & Specialty Center Cardiology Clinic [address] [place] [address] Denae Mckeon MD [address] [address] Scheduled Discharge Disposition: Discharged to home or self care 01/01/2024 2:00 PM CAN SORTER Office Visit Transplant Program 701 [facility] [address] [place] [address] Ning Leiva MD [address] [address] Scheduled Discharge Disposition: Discharged to home or self care documented as of this encounter Visit Diagnoses Diagnosis Encounter for pre-transplant evaluation for kidney transplant- Primary documented in this encounter
--- OUTSIDE RECORDS SUMMARY | 2023-11-28 10:44 | XMS_ITS | Encounter Summary ---
Author Organization [facility] Address [address] [place] [address] Phone Care Team Providers Care Framing Consultant Name Role Phone Unavailable Primary Care Provider Unavailabl e Encounter Details Date Type Department Care Team (Late st Contact Info) Description 11/21/2023 Abstract Transplant Program [address] [place] [address] [address] [place] [address] Chinyere Valencia RN [facility] 701 [place] [address] Social History Tobacco Use Types Packs/Day Years [...] Clinic & Specialty Center Cardiology Clinic [address] [address] Denae Mckeon MD 701 [facility] O5 [place] [address] Scheduled Discharge Disposition: Discharged to home or self care 01/01/2024 2:00 PM RHINOLOGIST Office Visit Transplant Program [address] [place] [address] [address] [place] [address] Ning Leiva MD 701 [facility] [address]5 [place] [address] Scheduled Discharge Disposition: Discharged to home or self care documented as of this encounter Visit Diagnoses Not on filedocumented in this encounter
--- OUTSIDE RECORDS SUMMARY | 2023-11-28 10:44 | XMS_ITS | Encounter Summary ---
Author Organization [facility] Address [address] [facility] [place] [address] Phone Care Team Providers Care Cashier Payments Received Name Role Phone Unavailable Primary Care Provider [...] ABDOMEN & PELVIS W/O CONTRAST MATERIAL [facility] [address] [place] [address] Referral ID Status Reason Start Date Expiration Date Visits Re quested Visits Authorized [id number] Closed 1 1 Encounter Details Date Type Department Care Team (Latest Contact Info) Description 11/20/2023 12:08 PM CDT - 11/20/2023 11:59 PM CDT Hospital Encounter [facility] [place] [address] [place], [place] [address] Blayne Quiroz MD 701 [facility] [address] [place] [address] Discharge Disposition: Discharged to home or self [...] & Specialty Center Cardiology Clinic [address] [address] Denae Mckeon MD 701 [facility] [address] [place], [place] [address] Scheduled Discharge Disposition: Discharged to home or self care 01/01/2024 2:00 PM BALLAST REGULATOR OPERATOR Office Visit Transplant Program [address] [place] [address] [address] [place], [place] [address] Ning Leiva MD 701 [facility] [address] [place] [address] Scheduled Discharge Disposition: Discharged to home or [...] pelvis, likely physiologic. Reading Radiologist: Shilo Cronin 11/20/2023 2:[address] abdomen pelvis [...]
--- OUTSIDE RECORDS SUMMARY | 2023-11-28 10:45 | XMS_ITS | Encounter Summary ---
Author Organization [facility] Address [address] [facility] [address] [place] [address] Care Team Providers Care Corporate Safety Manager Name Role Phone No, Pcp Primary Care Provider [phone] Encounter Details Date Type Department Care Team (Late st Contact Info) Description 11/22/2023 Orders Only [facility] [address] [place] [address] Julito Cortez MD [address] [place] [address] Social History Tobacco Use Types [...] Priority Date/Time Associated Diagnosis Comments CHEMISTRY Routine 11/22/2023 documented in this encounter Results * (ABNORMAL) [facility] (11/22/2023) Potassium 5.4(H) 3.5 - 5.1 mEq/L [facility] 11/22/2023 11/23/2023 7:1 8 AM CDT Narrative [facility] - 11/23/2023 Unless otherwise specified, test(s) performed at: [facility], [address] [place] [address], [place] [address] ANESTHESIA DIRECTOR: Gurdeep Ricardo M.D., Ph.D For any questions, please call customer service at FREQUENCY:OTHER Resulting Agency Comment Specimen source: Serum Julito Cortez MD LAB BLOOD ORDERABLES [facility] See order comments or contact performing lab Unknown, [place] documented in this encounter Visit Diagnoses Not on filedocumented in this encounter Care Teams Corporate Safety Manager Relationship Specialty Start Date End Date No, Pcp PCP - General Internal Medicine 09/10/23 documented as of this encounter
--- OUTSIDE RECORDS SUMMARY | 2023-11-28 10:45 | XMS_ITS | Encounter Summary ---
Author Organization [facility] Address [address] [facility] [address] [place] [address] Care Team Providers Care Radio Talk Show Host Name Role Phone Unavailable Primary Care Provider Unavailabl e Encounter Details Date Type Department Care Team (Late st Contact Info) Description 08/31/2023 Orders Only [facility] [address] [place] [address] Julito Cortez MD [address] [place] [address] Social History Tobacco Use Types [...] (08/31/2023) Simple KT/V (HHD and NXSTAGE) 0.76 [facility] SPKT/V DAUGIRDAS II (HHD & NXSTAGE) 0.81 [facility] WSTDKT/V 2.0 [facility] 08/31/2023 08/31/2023 Shireen Ordering Provider LAB BLOOD ORDERABLE S [facility] Contact Performing lab Unknown, [place] * TRACE ELEMENTS (08/31/2023) Aluminum 5 0 - 10 mcg/L [facility] Comment: This test was developed and its performance characteristics determined by [facility]. It has not been cleared or approved by the FDA. The laboratory is regulated under CLIA as qualified to perform high complexity testing. This test is used for clinical purposes. It should not be regarded as investigational or for research. 08/31/2023 09/01/2023 10: 06 AM CDT Narrative [facility] - 09/01/2023 Unless otherwise specified, test(s) performed at: [facility], [address] [place] [address], [place] [address] MEAT PROCESS WORKER: Gurdeep Ricardo M.D., Ph.D For any questions, please call customer service at FREQUENCY:MONTHLY Resulting Agency Comment Specimen source: Serum Julito Cortez MD LAB BLOOD ORDERABLES [facility] See order comments or contact performing [...] 08/31/2023 09/01/2023 11: 28 AM CDT Narrative [facility] - 09/01/2023 Unless otherwise specified, test(s) performed at: [facility], [address] [place] [address] MEAT PROCESS WORKER: Gurdeep Ricardo M.D., Ph.D For any questions, please call customer service at FREQUENCY:MONTHLY Resulting Agency Comment Specimen source: Blood Julito Cortez MD LAB BLOOD ORDERABLES Performing Organization Address [facility] de Phone Number [facility] See order comments or contact performing lab Unknown, [place] * (ABNORMAL) [facility] (08/31/2023) PTH 102(H) 16 - 80 pg/mL [facility] 08/31/2023 09/01/2023 10: 43 AM CDT Narrative [facility] - 09/01/2023 Unless otherwise specified, test(s) performed at: [facility], [address] [place] [address], [place] [address] MEAT PROCESS WORKER: Gurdeep Ricardo M.D., Ph.D For any questions, please call customer service at FREQUENCY:MONTHLY Resulting Agency Comment Specimen source: Plasma Julito Cortez MD LAB BLOOD ORDERABLES Performing Organization Address [facility]/ZIP Co de Phone Number [facility] See order comments or contact performing lab Unknown, [place] * (ABNORMAL) HD KINETICS (08/31/2023) Pathologist [facility] % Urea Reduction 53(L) 65 - 80 % [facility] 08/31/2023 09/01/2023 10: 34 AM CDT Narrative Resulting Agency Comment Specimen source: Plasma Julito Cortez MD LAB BLOOD ORDERABLES Performing Organization Address [facility] de Phone Number [facility] See order comments or contact performing lab Unknown, [place] * (ABNORMAL) POST CHEMISTRY (08/31/2023) [facility] BUN Post Dialysis 20(H) 6 - 19 mg/dL [facility] 08/31/2023 09/01/2023 10: 34 AM CDT Narrative [facility] - 09/01/2023 Unless otherwise specified, test(s) performed at: [facility], [address] [place] [address], [place] [address] MEAT PROCESS WORKER: Gurdeep Ricardo M.D., Ph.D For any questions, please call customer service at FREQUENCY:MONTHLY Resulting Agency Comment Specimen source: Plasma Julito Cortez MD LAB BLOOD ORDERABLES Performing Organization Address [facility] de Phone Number [facility] See order comments or contact performing lab Unknown, [place] * (ABNORMAL) SPECIAL CHEMISTRY (08/31/2023) [facility] Vitamin B-12 3,903(H) 211 - 911 [...] BLOOD BANK TEST ORDERABLES Performing Organization Address [facility]/ZIP Co de Phone Number [facility] See order comments or [...] 08/31/2023 09/01/2023 10: 25 AM CDT Narrative [facility] - 09/01/2023 Unless otherwise specified, test(s) performed at: [facility], [address] [place] [address], [place] [address] MEAT PROCESS WORKER: Gurdeep Ricardo M.D., Ph.D For any questions, please call customer service at FREQUENCY:MONTHLY Resulting Agency Comment Specimen source: Serum Julito Cortez MD LAB BLOOD ORDERABLES [facility] See order comments or contact performing lab Unknown, [place] documented in this encounter Visit Diagnoses Not on filedocumented in this encounter
--- OUTSIDE RECORDS SUMMARY | 2023-11-28 10:45 | XMS_ITS ---
Author Organization [facility] Address [address] [place] [address] Phone Care Team Providers Care Drywall Hanger Name Role Phone Unavailable Primary Care Provider Unavailabl e Transplant Episode Kidney Candidate [facility] ([place], [place]) - [facility] Evaluation began on 11/20/2023 Marked as Active on 11/20/2023 Kidney CoordinatorChinyere Valencia RN Phone: N/A Fax: N/A Email: N/A Care Team Name Role Phone Fax Email Chinyere Valencia RN Kidney Coordinator N/A N/A N/A Jean Ochoa DO [facility] Info Surgeon [phone] N/A Julito Cortez MD Real Estate Legal Secretary Referring Real Estate Legal Secretary Referring Provider [phone] N/A Kidney Spec [facility] Referring Nephrology Group [facility] Neph[facility] N/A N/A N/A Chinyere Valencia RN TXP Pre Coordinator N/A N/A N/A Events Pre-Transplant Referred: 05/11/2023 Evaluation began: 11/20/2023 Committee: 07/20/2023 Appointments (10/29/2023 - 12/29/2023) When With Description 11/20/2023 Transplant - Kamala Simental Chronic kidne y disease (Primary Dx) 11/20/2023 Transplant - Stacia Goode Encount er for pre-transplant evaluation for kidney transplant (Primary Dx) Dialysis History Dialysis History Start End Type Comments Center Home Hemodialysis [facility] D[facility] Information Center Phone Fax Address [facility] [phone] [address] [facility] [address]
--- OUTSIDE RECORDS SUMMARY | 2023-11-28 10:45 | XMS_ITS | Encounter Summary ---
Author Organization [facility] Address [address] [facility] [address] [place] [address] Care Team Providers Care Community Mental Health Social Worker Name Role Phone Unavailable Primary Care Provider Unavailabl e Encounter Details Date Type Department Care Team (Late st Contact Info) Description 08/22/2023 Orders Only [facility] [place] [address] [place] [address] Julito Cortez MD [address] [place] [address] Social History Tobacco Use Types [...] (08/22/2023) Hemoglobin 10.1(L) 14.0 - 18.0 g/dL [facility] Hemoglobin x 3 30.3(L) 42.0 - 54.0 % [facility] 08/22/2023 08/23/2023 4:4 8 AM CDT Narrative [facility] - 08/23/2023 Unless otherwise specified, test(s) performed at: [facility], [address] [place] [address], [place] [address] SEPTIC TANK SETTER: Gurdeep Ricardo M.D., Ph.D For any questions, please call customer service at FREQUENCY:OTHER Resulting Agency Comment Specimen source: Blood Julito Cortez MD LAB BLOOD ORDERABLES [facility] See order comments or contact performing lab Unknown, [place] documented in this encounter Visit Diagnoses Not on filedocumented in this encounter
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
--- OUTSIDE RECORDS SUMMARY | 2023-11-28 10:45 | XMS_ITS | Encounter Summary ---
Author Organization [facility] [place] Address [address] [place] [address] Care Team Providers Care Wool Sacker Name Role Phone No, Pcp Primary Care Provider [phone] Encounter Details Date Type Department Care Team (Late st Contact Info) Description 09/10/2023 Orders Only [facility] [place] [address] [place] [address] Julito Cortez MD [address] [place] [address] Social History Tobacco Use [...] (09/10/2023) Potassium 6.0(H) 3.5 - 5.1 mEq/L [facility] 09/10/2023 09/11/2023 3:3 0 AM CDT Narrative [facility] - 09/11/2023 Unless otherwise specified, test(s) performed at: [facility], [address] [place] [address], [place] [address] CLINICAL PSYCHOLOGY PROFESSOR: Gurdeep Ricardo M.D., Ph.D For any questions, please call customer service at FREQUENCY:OTHER Resulting Agency Comment Specimen source: Serum Julito Cortez MD LAB BLOOD ORDERABLES [facility] See order comments or contact performing lab Unknown, [place] documented in this encounter Visit Diagnoses Not on filedocumented in this encounter Care Teams Wool Sacker Relationship Specialty Start Date End Date No, Pcp PCP - General Internal Medicine 09/10/23 documented as of this encounter
--- OUTSIDE RECORDS SUMMARY | 2023-11-28 10:45 | XMS_ITS | Encounter Summary ---
Author Organization [facility] Address [address] [facility] [address] [place] [address] Care Team Providers Care Maintenance Director Name Role Phone No, Pcp Primary Care Provider [phone] Encounter Details Date Type Department Care Team (Late st Contact Info) Description 09/27/2023 Orders Only [facility] [place] [address] [place] [address] Julito Cortez MD [address] [place] [address] Social History Tobacco Use Types [...] Shireen Ordering Provider LAB BLOOD ORDERABLE S [facility] Contact Performing lab Unknown, [place] * [...] 09/28/2023 Unless otherwise specified, test(s) performed at: [facility], [address] [place] [address], [place] [address] TAIL DOGGER: Gurdeep Ricardo M.D., Ph.D For any questions, [...] MD LAB BLOOD ORDERABLES Performing Organization Address [facility]/ZIP Co de Phone Number [facility] See order comments or contact performing lab Unknown, [place] * (ABNORMAL) POST CHEMISTRY (09/27/2023) BUN Post Dialysis 23(H) 6 - 19 mg/dL [facility] 09/27/2023 09/28/2023 3:1 1 AM CDT Narrative [facility] - 09/28/2023 Unless otherwise specified, test(s) performed at: [facility], [address] [place] [address], [place] [address] TAIL DOGGER: Gurdeep Ricardo M.D., Ph.D For any questions, please call customer service at FREQUENCY:MONTHLY Resulting Agency Comment Specimen source: Plasma Julito Cotrez MD LAB BLOOD ORDERABLES Performing Organization Address [facility] de Phone Number APS [...] 09/27/2023 09/28/2023 2:5 6 AM CDT Narrative [facility] - 09/28/2023 Unless otherwise specified, test(s) performed at: [facility], [address] [place] [address] TAIL DOGGER: Gurdeep Ricardo M.D., Ph.D For any questions, please call customer service at FREQUENCY:MONTHLY Resulting Agency Comment Specimen source: Serum Julito Cortez MD LAB BLOOD ORDERABLES Performing Organization Address [facility] Co de Phone Number [facility] [employer] [facility] See order comments or contact performing lab Unknown, [place] * (ABNORMAL) [facility]rae Chemistry (09/27/2023) PTH 291(H) 16 - 80 pg/mL [facility] 09/27/2023 09/28/2023 3:0 3 AM CDT Narrative [facility] - 09/28/2023 Unless otherwise specified, test(s) performed at: [facility], [address] [place] [address], [place] [address] TAIL DOGGER: Gurdeep Ricardo M.D., Ph.D For any questions, please call customer service at FREQUENCY:MONTHLY Resulting Agency Comment Specimen source: Plasma Julito Cortez MD LAB BLOOD ORDERABLES Performing Organization Address [facility]/ZIP Co de Phone Number APS [employer] [facility] See order comments or contact performing lab Unknown, [place] documented in this encounter Visit Diagnoses Not on filedocumented in this encounter Care Teams Maintenance Director Relationship Specialty Start Date End Date No, Pcp PCP - General Internal Medicine 09/10/23 documented as of this encounter
--- OUTSIDE RECORDS SUMMARY | 2023-11-28 10:45 | XMS_ITS | Encounter Summary ---
Author Organization [facility] Address [address] [place] [address] Care Team Providers Care Cloth Finishing Range Operator Chief Name Role Phone No, Pcp Primary Care Provider [phone] Encounter Details Date Type Department Care Team (Late st Contact Info) Description 11/08/2023 Orders Only [facility] [place] [address] [place] [address] Julito Cortez MD [address] [place] [address] Social History Tobacco Use Types [...] 11/10/2023 Unless otherwise specified, test(s) performed at: [facility], [address] [place] [address], [place] [address] LIQUID CHLORINE OPERATOR: Gurdeep Ricardo M.D., Ph.D For any questions, please call customer service at FREQUENCY:OTHER Resulting Agency Comment Specimen source: Serum Julito Cortez MD LAB BLOOD ORDERABLES [facility] See order comments or contact performing lab Unknown, [place] documented in this encounter Visit Diagnoses Not on filedocumented in this encounter Care Teams Cloth Finishing Range Operator Chief Relationship Specialty Start Date End Date No, Pcp PCP - General Internal Medicine 09/10/23 documented as of this encounter
--- OUTSIDE RECORDS SUMMARY | 2023-11-28 10:45 | XMS_ITS | Encounter Summary ---
Author Organization [facility] Address [address] [facility] [address] [place] [address] Care Team Providers Care Mobile Home Park Manager Name Role Phone No, Pcp Primary Care Provider [phone] Encounter Details Date Type Department Care Team (Late st Contact Info) Description 11/03/2023 Orders Only [facility] [place] [address] [place] [address] Julito Cortez MD [address] [place] [address] Social History Tobacco Use Types [...] Shireen Ordering Provider LAB BLOOD ORDERABLE S [facility] Contact Performing lab Unknown, [place] * [...] 11/06/2023 Unless otherwise specified, test(s) performed at: [email or web address], [address] [place] [address], [place] [address] QUALITY SYSTEMS TECHNICIAN: Gurdeep Ricardo M.D., Ph.D For any questions, [...] ORDERABLES Performing Organization Address [facility]/ZIP Co de Phone Number [facility] See order comments or contact performing lab Unknown, [place] * (ABNORMAL) POST CHEMISTRY (11/03/2023) BUN Post Dialysis 23(H) 6 - 19 mg/dL [facility] 11/03/2023 11/06/2023 10: 47 AM CDT Narrative [facility] - 11/06/2023 Unless otherwise specified, test(s) performed at: [email or web address], [address] [place] [address], [place] [address] QUALITY SYSTEMS TECHNICIAN: Gurdeep Ricardo M.D., Ph.D For any questions, please call customer service at FREQUENCY:MONTHLY Resulting Agency Comment Specimen source: Plasma Julito Cortez MD LAB BLOOD ORDERABLES Performing Organization Address [facility] de Phone Number [facility] [...] 11/03/2023 11/06/2023 10: 28 AM CDT Narrative [facility] 11/06/2023 Unless otherwise specified, test(s) performed at: [email or web address], [address] [place] [address], [place] [address] QUALITY SYSTEMS TECHNICIAN: Gurdeep Ricardo M.D., Ph.D For any questions, please call customer service at FREQUENCY:MONTHLY Resulting Agency Comment Specimen source: Serum Julito Cortez MD LAB BLOOD ORDERABLES Performing Organization Address City/[facility]/ZIP Co de Phone Number [facility] [employer] [facility] [employer] [facility] See order comments or contact performing lab Unknown, [place] * (ABNORMAL) Spectra Chemistry (11/03/2023) PTH 328(H) 16 - 80 pg/mL [facility] 11/03/2023 11/06/2023 10: 37 AM CDT Narrative [facility] - 11/06/2023 Unless otherwise specified, test(s) performed at: [email or web address], [address] [place] [address], [place] [address] QUALITY SYSTEMS TECHNICIAN: Gurdeep Ricardo M.D., Ph.D For any questions, please call customer service at FREQUENCY:MONTHLY Resulting Agency Comment Specimen source: Plasma Julito Cortez MD LAB BLOOD ORDERABLES Performing Organization Address City/[facility]/ZIP Co de Phone Number [facility] [employer] [facility] See order comments or contact performing lab Unknown, [place] documented in this encounter Visit Diagnoses Not on filedocumented in this encounter Care Teams Mobile Home Park Manager Relationship Specialty Start Date End Date No, Pcp PCP - General Internal Medicine 09/10/23 documented as of this encounter
--- OUTSIDE RECORDS SUMMARY | 2023-11-28 10:45 | XMS_ITS | Encounter Summary ---
Author Organization [facility] [place] [place] Address [address] [place] [address] Care Team Providers Care Eradicator Name Role Phone No, Pcp Primary Care Provider [phone] Encounter Details Date Type Department Care Team (Late st Contact Info) Description 11/22/2023 Treatment [facility] [place] [address] [place] [address] Julito Cortez MD [address] [place] [address] Social History Tobacco Use Types Packs/Day Years Used Date Smoking Tobacco: Never Assessed Sex and Gender Information Value Date Recorded Sex Assigned at Not on file Gender Identity Not on file Sexual Orientation Not on file documented as of this encounter Miscellaneous Notes * Dialysis Note - Julito Cortez MD - 11/22/2023 2:24 PM CDT Date: Nov 22, 2023 Patient Name: Maco Stein : 1980 Chart #: [id number] Sex: M This patient was personally seen for a complete visit as part of routine monthly dialysis care. A review of the dialysis treatment, blood pressure, estimated dry weight and recent lab values was made. These were discussed with the patient and staff as necessary. FOOD PROCESSOR: Julito Cortez MD LOCATION: [phone] SCHEDULE: EDW: kg. DIALYZER: HD DURATION: NEEDLE SIZE: ANTICOAG: BATH: QB: ml/min QD: ml/min Subjective MD 11/22/23: HHD going well, no SOB or CP BUT erratic BP's, some 180 and some 100 and dizzy. K+ high, but eating high K+ foods, recheck today pending. 08/13/23: Gaining wt, has been eating more due to low BS. Dtr graduated HS and he will do HHD. awaiting HHD training dates. 07/13/23: Feels well. BP's still high. occ MORA. no SOB or CP. 06/29/23: Feels well. no SOB or CP. has appt next week at [facility]. 06/15/23: Feels well. no concerns. cost was a barrier to getting the Lokelma, hasn't obtained it,yet. 05/01/23: Feels well. no SOB or CP. No N/v/d. Stable wt. BP's are better. 04/10/23: Feels well, 2nd day with 2 16 g needles in. no SOB or CP. 03/01/23: HD going well. but having L AVF/arm discomfort/numbness, worse on the run. has appt at [facility] next Tu with Dr. Solorzano. fingers cool but not cold, no weakness, no pain. Interested in HHD and going to for education tomorrow. referred for txp to [facility]. 01/24/23: Feels well, got his AVF at [facility] yesterday. no arm pain. no SOB or CP. 12/25/22: BP is better after lowering his meds. still has ringing in his ears at end of every run, and leaving about EDW and no edema or SOB. Going for AVF soon. still can't do Txp eval until insurance is confirmed. 11/24/22: Feels fine today. No SOB or CP. hasn't been to [facility], yet. no N/V. 11/01/22: my second time seeing him. feels better. has had some tinnitus. BP is high but no MORA, blurry vision, CP or SOB. appetite is better. Taking losartan 50 mg/d. 10/02/22: My first time meeting him. his second time here, started here 09/29. Came from [facility] where he initiated. Feels ok today. no SOB or CP Advanced Practitioner Subjective SHALLOT PACKER 08/01/2023:Seen on dialysis. Doing well. No SOB, or chest pain reported. Arm access working well; no reported issues. BP slightly elevated. Leaving close to EDW. Potassium improved. Continue plan ofcare. SHALLOT PACKER 06/06/2023: Patient seen on dialysis. Doing well. [...] Edema - No leg edema. Access - AVF +t/b 04/10/23: using L AVF with 2 16 [...] mouth twice a day 07/13/2023 Rena[facility]lex-D (vit b,f-qm-tqmg-selen-vit d3-e) 800 mcg-12.5 mg-2,000 unit tablet Take 1 tablet by mouth every evening sertraline 75mg every evening. once a day sevelamer carbonate 800 mg [...] mg/d Treatment and Adequacy Assessment BUN mg/dL 44 (11/03/23) 53 (09/27/23) 43 (08/31/23) 67 (08/15/23) 56 (07/11/23) UREA NITROGEN (MG/DL) IN SER/PLAS - POST DIALYSIS mg/dL 23 (11/03/23) 23 (09/27/23) 20 (08/31/23) 18 (08/15/23) 14 (07/11/23) URR % 48 (11/03/23) 57 (09/27/23) 53 (08/31/23) 73 (08/15/23) 75 (07/11/23) spKt/V Gotch 1.63 (08/15/23) 1.7 (07/11/23) 1.58 (06/13/23) 1.64 (05/16/23) 1.7 (04/19/23) eKdrt/V 1.4 (08/15/23) 1.46 (07/11/23) 1.36 (06/13/23) 1.41 (05/16/23) 1.46 (04/19/23) spKt/V (Daugirdas II) 1.5700 (08/15/23) 1.6400 (07/11/23) 1.5400 (06/13/23) 1.5700 (05/16/23) 1.6500 (04/19/23) Dialysis is adequate. Achieves prescribed time - Yes Achieves prescribed frequency - Yes Missed treatments in past 30 days - 0 Continue current prescription. 08/13/23: Labs pending 11/01/22: adequate by medicare stds, increase time to 3'45''. needs an arm access Vascular Access Assessment Type of access: Fistula Surgeon - IR at [facility] Staff and patient report access is working well. Send to Surgeon for access creation. 04/10/23: using AVF d #2 today. 03/01/23: may have steal, going to see surgeon 03/06/23 01/24/23 L AVF at [facility] 01/23/23 (see OP note) 12/25/22: has [facility] appt upcoming 11/01/22: needs AVF eval at [facility] DUANE 10/02/22: needs AVF eval at [facility] Anemia Assessment HEMOGLOBIN (G/DL) IN BLOOD g/dL 8.5 (11/03/23) 10.5 (09/27/23) 11.2 (08/31/23) 9.3 (08/29/23) 10.1 (08/22/23) PLATELETS 1000/mcL 129 (08/15/23) 96 (07/11/23) 127 (06/13/23) 131 (05/16/23) 118 (04/19/23) FERRITIN ng/mL 984 (08/31/23) 750 (08/15/23) 480 (04/19/23) 633 (03/15/23) 289 (01/15/23) TRANSFERRIN SAT% % 36 (11/03/23) 34 (09/27/23) 43 (08/31/23) 29 (08/15/23) 31 (07/11/23) Hemoglobin is below goal. Iron Saturation is at goal. Ferritin is at goal. Will adjust AVE and intravenous iron per protocol. Nutritional and Metabolic Assessment ALBUMIN (G/DL) g/dL 3.7 (11/03/23) 3.7 (09/27/23) 4.3 (08/31/23) 4.2 (08/15/23) 4.1 (07/11/23) Sodium mEq/L 136 (11/03/23) 136 (09/27/23) 131 (08/31/23) 138 (08/15/23) 137 (07/11/23) POTASSIUM (MMOL/L) IN SER/PLAS mEq/L 7.0 (11/08/23) 7.2 (11/03/23) 4.8 (09/27/23) 6.0 (09/10/23) 6.6 (08/31/23) BICARBONATE (CO2) mEq/L 26 (11/03/23) 29 (09/27/23) 28 (08/31/23) 23 (08/15/23) 23 (07/11/23) 25 OH VITAMIN D ng/mL 35.2 (08/31/23) 28.6 (01/15/23) Albumin is at goal. Encourage high-biological value protein intake. Potassium is above goal. Encourage low potassium diet. Bicarbonate is at goal. Continue same bicarbonate in dialysate. 11/22/23: pre-auth pending for Rad, recheck today, low K+ diet education ongoing 08/13/23: Labs pending SHALLOT PACKER 02/08/2023: Educated on low potassium foods. Bone and Mineral Metabolism Assessment CALCIUM mg/dL 8.2 (11/03/23) 8.5 (09/27/23) 9.8 (08/31/23) 8.8 (08/15/23) 9.1 (07/25/23) CALCIUM (MG/DL) CORRECTED FOR ALBUMIN IN SER/PLAS mg/dL 8.4 (11/03/23) 8.7 (09/27/23) 9.6 (08/31/23) 8.6 (08/15/23) 10.3 (07/11/23) PHOSPHATE (MG/DL) IN SER/PLAS mg/dL 4.4 (11/03/23) 4.4 (09/27/23) 4.2 (08/31/23) 8.7 (08/15/23) 6.4 (07/11/23) CALCIUM PHOSPHORUS PRODUCT, COR 37 (11/03/23) 38 (09/27/23) 40 (08/31/23) 75 (08/15/23) 66 (07/11/23) IPTH pg/mL 328 (11/03/23) 291 (09/27/23) 102 (08/31/23) 229 (08/15/23) 189 (05/25/23) Corrected Calcium is at goal. Phosphorous is at goal. Ca X P product is at goal. Intact PTH is at goal. Line Construction Engineer will adjust binders and vitamin D per protocol and continue to provide dietary education. 08/13/23: Labs pending Cardiovascular Assessment Blood pressures reviewed and are acceptable. Intradialytic weight gains are appropriate. Estimated dry weight is appropriate. Continue same cardiovascular medications. 11/22/23: erratic BP's and keep log and report to us in 1-2 wks. SHALLOT PACKER 05/11/2023 decreased to 95.5 kg 03/01/23: increase 96 12/25/22: increase 93.5 MD 11/24/22: increase 92 11/01/22: increase losartan to 100 mg q evening. next would add CCB, edw 93.5 SHALLOT PACKER 10/09/2022: Had been still taking hydralazine; not started losartan. Instructed to make change 10/02/22: d/c hydralazine, add Losartan 50 mg q evening. Transplant Status: Patient has been referred. Center - [facility] 04/10/23: got his LEA in Jan and was referred to [facility], still waiting to hear back 11/24/22: not a candidate until gets insurance. Resuscitation Status Discussed with patient who requested Full Code. Julito Cortez MD [ Signed And locked electronically On 11/22/2023 at 02:27:58 PM ] Transcribed: Julito Cortez ( 11/22/2023 ) documented in this encounter Plan of Treatment Not on file documented as of this encounter Visit Diagnoses Not on filedocumented in this encounter Care Teams Eradicator Relationship Specialty Start Date End Date No, Pcp PCP - General Internal Medicine 09/10/23 documented as of this encounter
--- OUTSIDE RECORDS SUMMARY | 2023-11-28 10:45 | XMS_ITS | Clinical Summary ---
Author Organization [email or web address] [facility] Address [place], [place] [address] Care Team Providers Care Vehicle Return Associate Name Role Phone Daysi Pires Primary Care [...] two times daily. 60 Tablet 4 Active carvediloL (COREG) 12.5 mg tabletIndications:HTN (hypertension) [...] Overview (09/24/2022): HD started at [facility] 09/16/22 HTN (hypertension) 09/15/2022 Acute on chronic kidney failure 09/15/2022 Hypertensive emergency 09/15/2022 DIABETES 01/27/2002 Encounters Date Type Department Care Team Description 10/31/2023 11:35 AM CDT [facility] [place] [address] Ning Lopez PA Hospital F/U (Slowly feeling better ) 10/31/2023 Travel 10/26/2023 Patient Outreach [place] [address] [place] [address] Laura Reyes, RN Primary RN Care Management (Lace 56); Hospital F/U 10/23/2023 5:44 PM CDT - 10/25/2023 5:30 AM CDT Hospital Encounter [facility] [address] [place] [address] Aiden Babin MD [facility], [facility] [place], MD Brian Aviles, TAMMIE Lyles Lower extremity edema (Primary Dx); ESRD (end stage renal disease) (HC); HTN (hypertension) Discharge Disposition: Home Self Care 10/23/2023 Travel 10/19/2023 Nurse Triage [facility] [address] [facility] [place] [address] Daysi Pires PA Chest Pain from Last [...] Description 11/30/2023 2:40 PM CDT Office Visit [facility] [address] [place] [address] Daysi Pires PA [address] [place] [address] Health Maintenance Due Date Last Done Comments Pneumococcal series for age 6-64 (1 of 2 - PCV) 10/14/1985 Tdap 10/14/1990 Depression screening for age 12+ 1991 HIV for age 15-65 10/14/1994 BMI (ht and wt on same day) for age 18+ 10/14/1997 Hepatitis C screening for ag e 18-79 10/14/1997 Tetanus booster 1999 COVID-19 vaccine series ( - season) 2023 Influenza for age 9-49 10/28/2023 [...] - 100 mg/dL 10/25/2023 12:33 PM CDT [facility] Blood BLOOD SPECIMEN / Unknown 10/25/2023 12:32 PM CDT 10/25/2023 12:33 PM CDT Sean LACKEY CHEMISTRY [facility] [address] [address], * ECHO TTE COMPLETE WO CONTRAST (10/24/2023 11:01 AM CDT) Pathologist [facility] AORTIC VALVE MEAN PG 4 mmHg LVEDD 5.2 cm EJECTION FRACTION 55 - 60% Anatomical Region Laterality Modality Ultrasound 10/24/2023 9:54 AM CDT Narrative 10/24/2023 11:09 AM CDT ECHOCARDIOGRAM MACO STEIN ? Accession#: ?? [id number] : ?1980 43 years Study Date: ?? 10/24/2023 9:54:07 AM Gender: M ?BP: ? 180/83 mmHg Height: 175.00 cm ?BSA: ?2.10 m? ? ? Weight: 95.00 kg ? Tech: ? CJG ? Referring MD: EYAD WALLACE Site: ? [facility] Reading Location: ANW IP Patient Location: Inpatient. [...] detected. Comparison Compared to prior exam of ENVIRONMENTAL COMPLIANCE SPECIALIST, there has been no significant change. Chamber [...] . This study was interpreted by an [facility] accredited facility. ??Final ?? Procedure Note Alex Weaver MD - 10/24/2023 ECHOCARDIOGRAM MACO STEIN : 1980 43 years Study Date: 10/24/2023 9:54:07 AM Gender: M BP: 180/83 mmHg Height: 175.00 cm BSA: 2.10 m? ? ? Weight: 95.00 kg Tech: ARIAN Referring MD: EYAD WALLACE Site: [facility] Reading Location: [facility] Patient Location: Inpatient. Procedure: 2D w/ Contrast, [...] detected. Comparison Compared to prior exam of ENVIRONMENTAL COMPLIANCE SPECIALIST, there has been no significant change. Chamber [...] . This study was interpreted by an [facility] accredited facility. Final Eyad Wallace MD ECHO ORD * HBSAG (HBS) (10/24/2023 7:01 AM CDT) Pathologist [facility] HBSAG Nonreactive Nonreactive 10/24/2023 10:42 AM CDT [facility] Blood BLOOD SPECIMEN / Unknown Venipuncture / Unknown 10/24/2023 7:01 AM CDT 10/24/2023 8:32 AM CDT Rabia Husain MD SEND OUT S [facility] [address] [place] [address], * (ABNORMAL) Electrolyte panel AM (10/24/2023 7:01 AM CDT) SODIUM 134(L) 136 - 145 mmol/L 10/24/2023 8:56 AM CDT [facility] POTASSIUM 4.1 3.5 - 5.1 mmol/L 10/24/2023 8:56 AM CDT [facility] CHLORIDE 94(L) 98 - 107 mmol/L 10/24/2023 8:56 AM CDT [facility] CO2,TOTAL 28 22 - 29 mmol/L 10/24/2023 8:56 AM CDT [facility] ANION GAP 12 5 - 18 10/24/2023 8:56 AM CDT [facility] Blood BLOOD SPECIMEN / Unknown Venipuncture / Unknown 10/24/2023 7:01 AM CDT 10/24/2023 8:32 AM CDT Eyad Wallace MD CHEMISTRY [facility] [address] [address], [place] * US VENOUS LOWER EXTREMITY BILATERAL PORTABLE (10/23/2023 9:17 PM CDT) Anatomical Region Laterality Modality LEGS, LEG L, LEG R Ultrasound 10/23/2023 9:38 PM CDT Narrative 10/23/2023 9:38 PM CDT For Patients: ??As a result of the Cures Act, medical imaging exams and procedure [...] (HS) ONE TIME (10/23/2023 6:57 PM CDT) Pathologist [facility] TROPONIN T HS 44(H) 6-15 ng/L ng/L 10/23/2023 7:35 PM CDT [facility] Blood BLOOD SPECIMEN / Unknown Butterfly / Unknown 10/23/2023 6:57 PM CDT 10/23/2023 7:09 PM CDT [facility] - 10/23/2023 7:35 PM CDT [id number] [...] department patient population. Aiden Babin MD CHEMISTRY [facility] [address] [place] [address], * (ABNORMAL) CBC W PLT NO DIFF (10/23/2023 6:57 PM CDT) WHITE BLOOD COUNT 6.3 4.5 - 11.0 thou/cu mm 10/23/2023 7:15 PM CDT [facility] RED BLOOD COUNT 2.63(L) 4.30 - 5.90 mil/cu mm 10/23/2023 7:15 PM CDT [facility] HEMOGLOBIN 8.7(L) 13.5 - 17.5 g/dL 10/23/2023 7:15 PM CDT [facility] HEMATOCRIT 25.0(L) 37.0 - 53.0 % 10/23/2023 7:15 PM CDT [facility] MCV 95 80 - 100 fL 10/23/2023 7:15 PM CDT [facility] MCH 33.1 26.0 - 34.0 pg 10/23/2023 7:15 PM CDT [facility] MCHC 34.8 32.0 - 36.0 g/dL 10/23/2023 7:15 PM CDT [facility] RDW 13.2 11.5 - 15.5 % 10/23/2023 7:15 PM CDT [facility] PLATELET COUNT 100(L) 140 - 440 thou/cu mm 10/23/2023 7:15 PM CDT [facility] MPV 12.0(H) 6.5 - 11.0 fL 10/23/2023 7:15 PM CDT [facility] NRBC 0.0 % 10/23/2023 7:15 PM CDT [facility] ABS NRBC 0.0 thou /cu mm 10/23/2023 7:15 PM CDT [facility] Blood BLOOD SPECIMEN / Unknown Butterfly / Unknown 10/23/2023 6:57 PM CDT 10/23/2023 7:09 PM CDT Aiden Babin MD HEMATOLOGY [facility] [address] [place] [address], * (ABNORMAL) HEPATIC FUNCTION PANEL (10/23/2023 6:57 PM CDT) ALBUMIN 3.7(L) 4.0 - 4.9 g/dL 10/23/2023 7:35 PM CDT [facility] PROTEIN,TOTAL 6.9 6.0 - 8.0 g/dL 10/23/2023 7:35 PM CDT [facility] BILIRUBIN,TOTAL 0.5 0.0 - 1.2 mg/dL 10/23/2023 7:35 PM CDT [facility] BILIRUBIN,DIRECT 0.2 0.0 - 0.2 mg/dL 10/23/2023 7:35 PM CDT [facility] BILIRUBIN,INDIRE CT 0.3 0.2 - 0.8 mg/dL 10/23/2023 7:35 PM CDT [facility] ALK PHOSPHATASE 74 40 - 129 IU/L 10/23/2023 7:35 PM CDT [facility] ALT (SGPT) 7(L) 10 - 50 IU/L 10/23/2023 7:35 PM CDT [facility] AST (SGOT) 17 10 - 50 IU/L 10/23/2023 7:35 PM CDT [facility] Blood BLOOD SPECIMEN / Unknown Butterfly / Unknown 10/23/2023 6:57 PM CDT 10/23/2023 7:09 PM CDT Aiden Babin MD CHEMISTRY [facility] [address] [place] [address], * (ABNORMAL) BASIC METABOLIC PANEL (10/23/2023 6:57 PM CDT) SODIUM 131(L) 136 - 145 mmol/L 10/23/2023 7:35 PM CDT [facility] POTASSIUM 4.1 3.5 - 5.1 mmol/L 10/23/2023 7:35 PM CDT [facility] CHLORIDE 90(L) 98 - 107 mmol/L 10/23/2023 7:35 PM CDT [facility] CO2,TOTAL 29 22 - 29 mmol/L 10/23/2023 7:35 PM CDT [facility] ANION GAP 12 5 - 18 10/23/2023 7:35 PM CDT [facility] GLUCOSE 366(H) 70 - 99 mg/dL 10/23/2023 7:35 PM CDT [facility] CALCIUM 8.7 8.6 - 10.0 mg/dL 10/23/2023 7:35 PM CDT [facility] BUN 29(H) 6 - 20 mg/dL 10/23/2023 7:35 PM T [facility] CREATININE 6.62(H) 0.70 - 1.20 mg/dL 10/23/2023 7:35 PM T [facility] BUN/CREAT RATIO 4(L) 10 - 20 7:35 PM CDT [facility] eGFR 10(L) >90 mL/min/1.7 3m2 10/23/2023 7:35 PM CDT [facility] Comment:As of 2021, eG [...] 7:09 PM CDT Aiden Babin MD CHEMISTRY Performing Organization Address City/[facility] Co de Phone Number [facility] [address] [place] [address], * EKG 12 LEAD (10/23/2023 5:34 PM CDT) Pathologist [facility] Interpretation Normal sinus rhythm Normal ECG Compared to ekg of 3 No Change BEYOND NOW Ventricular Rate 93 BPM BEYOND NOW Atrial Rate 93 BPM BEYOND NOW P-R Interval 170 ms BEYOND NOW QRS Duration 80 ms BEYOND NOW QT 362 ms BEYOND NOW QTc 450 ms BEYOND NOW P Mclain 29 degrees BEYOND NOW R Mclain 56 degrees BEYOND NOW T Mclain 68 degrees BEYOND NOW 10/23/2023 5:34 PM CDT 10/23/2023 11:22 PM CDT Aiden Babin MD EKG ORD Performing Organization Address City/[facility]/ZIP Co de Phone Number BEYOND NOW [place], [place] * (ABNORMAL) LIPID PANEL (12/06/2021 3:00 PM CDT) Pathologist [facility] CHOLESTEROL,TOTAL 163 100 - 199 mg/dL 12/07/2021 3:15 PM CDT [facility] TRIGLYCERIDES 272(H) <150 mg/dL 12/07/2021 3:15 PM CDT [facility] HDL CHOLESTEROL 23(L) >40 mg/dL 3:15 PM CDT [facility] NON-HDL CHOLESTEROL 140 <145 mg/dl 12/07/2021 3:15 PM CDT [facility] CHOL/HDL RATIO 7.09(H) <4.50 12/07/2021 3:15 PM CDT [facility] LDL CHOLESTEROL 86 <=130 mg/dL 12/07/2021 3:15 PM CDT [facility] VLDL CHOLESTEROL 54(H) <=30 mg/dL 12/07/2021 3:15 PM CDT [facility] PROVIDER ORDERED STATUS RANDOM 12/07/2021 3:15 PM CDT [facility] Blood BLOOD SPECIMEN / Unknown 12/06/2021 3:00 PM CDT 12/07/2021 2:54 PM CDT Aidee Sher NP CHEMISTRY [facility] [address] [place] [address] from Last 3 Months or Most Recently Relevant to Health Maintenance Advance Directives Documents on File Type Date Recorded 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
--- OUTSIDE RECORDS SUMMARY | 2023-11-28 10:45 | XMS_ITS | Encounter Summary ---
Author Organization [facility] Address [address] [place] [address] Care Team Providers Care Wire Walker Name Role Phone Unavailable Primary Care Provider Unavailabl e Encounter Details Date Type Department Care Team (Late st Contact Info) Description 08/29/2023 Orders Only [facility] [place] [address] [place] [address] Julito Cortez MD [address] [place], [place] [...] (08/29/2023) Hemoglobin 9.3(L) 14.0 - 18.0 g/dL [facility] Hemoglobin x 3 27.9(L) 42.0 - 54.0 % [facility] 08/29/2023 09/01/2023 12: 05 PM CDT Narrative [facility] - 09/01/2023 Unless otherwise specified, test(s) performed at: [facility], [address] [place] [address], [place] [address] FINGERNAIL FORMER: Gurdeep Ricardo M.D., Ph.D For any questions, please call customer service at FREQUENCY:OTHER Resulting Agency Comment Specimen source: Blood Julito Cortez MD LAB BLOOD ORDERABLES [facility] See order comments or contact performing lab Unknown, [place] documented in this encounter Visit Diagnoses Not on filedocumented in this encounter
--- OUTSIDE RECORDS SUMMARY | 2023-11-28 10:45 | XMS_ITS | Clinical Summary ---
Author Organization [facility] Facility Address [address] [facility] [address] [place] [address] Care Team Providers Care Laboratory Administrative Director Name Role Phone No, Pcp Primary Care Provider [phone] Active Problems Problem Noted Date Diagnosed Date End stage renal disease 11/23/2023 Dependence on renal dialysis 11/23/2023 Type 2 diabetes mellitus 11/23/2023 Encounters Date Type Department Care Team Description 11/22/2023 Orders Only [facility] [place] [address] [place] [address] Julito Cortez MD 11/22/2023 Treatment [facility] [place] [address] [address] Julito Cortez MD 11/08/2023 Orders Only [facility] [address] [facility] [address] [place] [address] Julito Cortez MD 11/03/2023 Orders Only [facility] [address] [facility] [address] [place] [address] Julito Cortez MD 09/27/2023 Orders Only [facility] [address] [facility] [address] [place] [address] Julito Cortez MD 09/26/2023 Treatment [facility] [place] [address] [address] Julito Cortez MD 09/10/2023 Orders Only [facility] [place] [address] [facility] [address] [place] [address] Julito Cortez MD 08/31/2023 Orders Only [facility] [place] [address] [place] [id number] Julito Cortez MD 08/29/2023 Orders Only [facility] [place] [address] [place] [phone] Julito Cortez MD from Last 3 Months [...] Date/Time Associated Diagnosis Comments CHEMISTRY Routine 11/22/2023 CHEMISTRY Routine 11/08/2023 [facility] LAB RESULTS Routine 11/03/2023 HEMATOLOGY Routine 11/03/2023 HD KINETICS Routine 11/03/2023 POST CHEMISTRY Routine 11/03/2023 CHEMISTRY Routine 11/03/2023 CHEMISTRY Routine 11/03/2023 [facility] LAB RESULTS Routine 09/27/2023 HEMATOLOGY Routine 09/27/2023 HD KINETICS Routine 09/27/2023 POST CHEMISTRY Routine 09/27/2023 CHEMISTRY Routine 09/27/2023 CHEMISTRY Routine 09/27/2023 CHEMISTRY Routine 09/10/2023 [facility] LAB RESULTS Routine 08/31/2023 TRACE ELEMENTS Routine 08/31/2023 HEMATOLOGY Routine 08/31/2023 CHEMISTRY Routine 08/31/2023 HD KINETICS Routine 08/31/2023 POST CHEMISTRY Routine 08/31/2023 SPECIAL CHEMISTRY Routine 08/31/2023 CHEMISTRY Routine 08/31/2023 HEMATOLOGY Routine 08/29/2023 from Last 3 Months Results * (ABNORMAL) [facility] (11/22/2023) Only the most recent of9 resultswithin the time period is included. Potassium 5.4(H) 3.5 - 5.1 mEq/L [facility] 11/22/2023 11/23/2023 7:1 8 AM CDT Narrative [facility] - 11/23/2023 Unless otherwise specified, test(s) performed at: [facility], [address] [place] [address], [place] [address] CHANNEL PROCESS SUPERVISOR: Gurdeep Ricardo M.D., Ph.D For any questions, please call customer service at FREQUENCY:OTHER Resulting Agency Comment Specimen source: Serum Julito Cortez MD LAB BLOOD ORDERABLES [facility] See order comments or contact performing lab Unknown, [place] * (ABNORMAL) HD KINETICS (11/03/2023) Only the most recent of3 resultswithin the time period is included. % Urea Reduction 48(L) 65 - 80 % [facility] 11/03/2023 11/06/2023 10: 47 AM CDT Narrative Resulting Agency Comment Specimen source: Plasma Julito Cortez MD LAB BLOOD ORDERABLES Performing Organization Address [facility]/ZIP Co de Phone Number [facility] See order comments or contact performing lab Unknown, [place] * (ABNORMAL) POST CHEMISTRY (11/03/2023) Only the most recent of3 resultswithin the time period is included. BUN Post Dialysis 23(H) 6 - 19 mg/dL [facility] 11/03/2023 11/06/2023 10: 47 AM CDT Narrative [facility] - 11/06/2023 Unless otherwise specified, test(s) performed at: [facility], [address] [place] [address], [place] [address] CHANNEL PROCESS SUPERVISOR: Gurdeep Ricardo M.D., Ph.D For any questions, please call customer service at FREQUENCY:MONTHLY Resulting Agency Comment Specimen source: Plasma Julito Cortez MD LAB BLOOD ORDERABLES Performing Organization Address [facility]/[facility] Co de Phone Number [facility] See order comments or contact performing lab Unknown, [place] * (ABNORMAL) HEMATOLOGY (11/03/2023) Only the most recent of4 resultswithin the time period is included. Neutrophils [...] 11/03/2023 11/06/2023 10: 37 AM CDT Narrative [facility] - 11/06/2023 Unless otherwise specified, test(s) performed at: [facility], [address] [place] [address], [place] [address] CHANNEL PROCESS SUPERVISOR: Gurdeep Ricardo M.D., Ph.D For any questions, please call customer service at FREQUENCY:MONTHLY Resulting Agency Comment Specimen source: Blood Julito Cortez MD LAB BLOOD ORDERABLES [facility] See order comments or contact performing lab Unknown, [place] * [facility] Results (11/03/2023) Only the most recent of3 resultswithin the time period is included. Pathologist [facility] Simple KT/V (HHD and NXSTAGE) 0.65 [facility] SPKT/V DAUGIRDAS II (HHD & NXSTAGE) 0.81 [facility] WSTDKT/V 2.6 [facility] 11/03/2023 11/03/2023 Shireen Ordering Provider LAB BLOOD ORDERABLE S [facility] Contact Performing lab Unknown, [place] * (ABNORMAL) SPECIAL CHEMISTRY (08/31/2023) [facility] Vitamin B-12 3,903(H) 211 - 911 pg/mL [facility] Comment: Verified by repeat analysis. Vitamin D, 25-OH, Total 35.2 30.0 - 100.0 ng/mL [facility] Comment: Please Note: ??Effective March 06, 2021, the methodology for this test has changed to the SIEMENS ATELLICA method 08/31/2023 09/01/2023 10: 25 AM CDT Narrative Resulting Agency Comment Specimen source: Serum Julito Cortez MD LAB BLOOD BANK TEST ORDERABLES Performing Organization Address City/[facility]/ZIP Co de Phone Number [facility] See order comments or contact performing lab Unknown, [place] * TRACE ELEMENTS (08/31/2023) Aluminum 5 0 - 10 mcg/L [facility] Comment: This test was developed and its performance characteristics determined by [facility]. It has not been cleared or approved by the FDA. The laboratory is regulated under CLIA as qualified to perform high complexity testing. This test is used for clinical purposes. It should not be regarded as investigational or for research. 08/31/2023 09/01/2023 10: 06 AM CDT Narrative [facility] - 09/01/2023 Unless otherwise specified, test(s) performed at: [facility], [address] [place] [address], [place] [address] CHANNEL PROCESS SUPERVISOR: Gurdeep Ricardo M.D., Ph.D For any questions, please call customer service at FREQUENCY:MONTHLY Resulting Agency Comment Specimen source: Serum Julito Cortez MD LAB BLOOD ORDERABLES Performing Organization Address City/[facility]/[facility] Co de Phone Number [facility] See order comments or contact performing lab Unknown, [place] from Last 3 Months Care Teams Laboratory Administrative Director Relationship Specialty Start Date End Date No, Pcp PCP - General Internal Medicine 09/10/23
== END 2023-11-28 10:31 | disposition home or self-care (01) ==
LOC: WOUND 10:31
PROVIDERS: PCP Internal Medicine; Visit Provider Surgery
DX: E11.621 Type 2 diabetes mellitus with foot ulcer (principal); L97.522 Non-pressure chronic ulcer of other part of left foot with fat layer exposed; L08.9 Local infection of the skin and subcutaneous tissue, unspecified; E11.22 Type 2 diabetes mellitus with diabetic chronic kidney disease; N18.6 End stage renal disease; Z99.2 Dependence on renal dialysis; E11.40 Type 2 diabetes mellitus with diabetic neuropathy, unspecified; Z79.4 Long term (current) use of insulin
CPT/HCPCS: 87070; 87186; 97597

== ENCOUNTER 2023-12-05 10:30 | Outpatient (CLI) | payer MEDICAID, SELFPAY ==
--- OUTSIDE RECORDS SUMMARY | 2023-12-05 10:36 | XMS_ITS | Clinical Summary ---
Author Organization [facility] Address [address] [place] [address] Phone Care Team Providers Care Latrine Cleaner Name Role Phone Unavailable Primary Care Provider Unavailabl e Source Comments [employer] is fully rolled out on [employer]. Last update 07/31/08.[facility] Allergies Active Allergy Reactions Criticality Noted Date [...] to chronic kidney disease, on chronic dialysis ([facility]) 10/13/2022 Anxiety 10/13/2022 HTN (hypertension) 09/15/2022 Diabetes mellitus ([facility]) 01/27/2002 Encounters Date Type Department Care Team Description 11/22/2023 Orders Only Transplant Program [address] [place] [address] Chinyere Valencia RN Pre-transplant evaluation for ESRD (end stage renal disease) (Primary Dx) 11/21/2023 Abstract Transplant Program [address] [place] [address] Chinyere Valencia RN 11/20/2023 2:30 PM CDT Nurse Only Transplant Program [address] [place] [address] Neva Carbajal MBBS Rn, [facility]-Pre Recipient Chronic kidney disease (Primary Dx) Discharge Disposition: Discharged to home or self care 11/20/2023 1:30 PM CDT Office Visit Transplant Program [address] [place] [address] Neva Carbajal MBBS Gjesvold, Donna E, RD, LD Encounter for pre-transplant evaluation for kidney transplant (Primary Dx) Discharge Disposition: Discharged to home or self care 11/20/2023 12:29 PM CDT - 11/20/2023 11:59 PM CDT Hospital Encounter [facility]RAY [address] [place] [address] Blayne Quiroz MD Discharge Disposition: Discharged to home or self care 11/20/2023 12:08 PM CDT - 11/20/2023 11:59 PM CDT Hospital Encounter [facility] [address] [place] [address] Blayne Quiroz MD Discharge Disposition: Discharged to home or self care 11/20/2023 9:57 AM CDT - 11/20/2023 11:59 PM CDT Hospital Encounter [facility] EKG [address] [place] [address] Blayne Quiroz MD Camera Repairer, Ekg Discharge Disposition: Discharged to home or self care 11/20/2023 9:55 AM CDT - 11/20/2023 11:59 PM CDT Hospital Encounter [facility] Echo Lab [address] [place] [address] Blayne Quiroz MD Alvarado, Michelle, REPORT PROGRAMMER Jerel Pena, hair spring cutter Disposition: Discharged to home or self care 11/20/2023 Travel 11/01/2023 Documentation Only Transplant Program [address] [place] [address] Wliliams Lindquist Transplant Modular Home Crew Member 10/03/2023 Documentation Only Transplant Program [address] [place] [address] Williams Lindquist Transplant Modular Home Crew Member 09/26/2023 Abstract Transplant Program [address] [place] [address] Williams Lindquist Transplant Modular Home Crew Member from Last 3 Months Social History Tobacco [...] [facility] [address] [address] Denae Mckeon MD [address] [facility] [address] [place] [address] Scheduled Discharge Disposition: Discharged to home or self care 01/01/2024 2:00 PM AGRICULTURAL EXTENSION AGENT Office Visit Transplant Program 701 [facility] [address] [place] [address] Ning Leiva MD 701 [facility] [address] [place], [place] [id number] Scheduled Discharge Disposition: Discharged to home or [...] (#1) 10/28/2023 05/18/2023 Lipid Screening 12/06/2026 12/06/2021, 0502/2021, 04/07/2020 Imm: Zoster (1 of 2) 10/14/2029 [...] Donor, Chagas Screen Non Reactive Non Reactive [facility] Blood 11/20/2023 1:20 PM CDT 11/23/2023 11:23 AM CDT [facility] Performing Organization Address City/[facility]/ZIP Co de Phone Number [employer] [address] [place] [address] * COCCIDIOIDES AB SCREEN WITH REFLEX (11/20/2023 1:20 PM CDT) Coccidioides Antibody Negative Negative [facility] [address] [facility] Comment: Repeat testing on a new sample in 2-3 weeks if clinically indicated. ADDITIONAL INFORMATION This test has been modified from the board member's instructions. Its performance characteristics were determined by [facility] in a manner consistent with CLIA requirements. This test has not been cleared or approved by the U.S. Food and Drug Administration. Test Performed by: [facility] - [address] [address] Seafood Harvester: Sawyer Alejandre Ph.D.; CLIA# [id number] Serum 11/20/2023 1:20 PM CDT 11/20/2023 2:24 PM CDT Narrative [facility] [employer] [facility] - 11/21/2023 8:16 PM CDT Bill to Corporate Kidney Acquisition Account Neva Carbajal [facility] Performing Organization Address City/[facility]/ZIP Co de Phone Number [facility] [employer] [address] SU[facility]TR [address] [place] [phone] * (ABNORMAL) QUANTIFERON-TB GOLD PLUS (11/20/2023 1:20 PM CDT) Pathologist [facility] QuantiFERON TB Gold Plus Positive( A) Negative [facility] QFT TB 1 0.19 [facility] QFT TB 2 0.35 [facility] QFT TB MITOGEN 9.94 [facility] QFT NIL 0.06 [facility] Blood 11/20/2023 1:20 PM CDT 11/22/2023 7:34 AM CDT Narrative [facility] - 11/22/2023 10:36 AM CDT Bill to Corporate Kidney Acquisition ??Account [facility] [address] [address] * HIV COMBO (11/20/2023 1:20 PM CDT) [facility] HIV Antigen-Antibody Nonreactive Nonreactive [facility] Comment:Performance characte ristics have not been established with this test on patients less than 2 years of age. Blood 11/20/2023 1:20 PM CDT 11/20/2023 2:24 PM CDT Narrative [facility] - 11/20/2023 3:20 PM CDT Bill to Corporate Kidney Acquisition Account [facility] Performing Organization Address City/[facility]/ZIP Co de Phone Number [facility] [address] [address] * HEPATITIS B CORE TOTAL THEE (11/20/2023 1:20 PM CDT) Pathologist [facility] HBV Core Total Thee Nonreactive Nonreactive [facility] Blood 11/20/2023 1:20 PM CDT 11/20/2023 3:41 PM CDT Narrative [facility] - 11/20/2023 4:11 PM CDT Bill to Corporate Kidney Acquisition Account [facility]a [facility] Performing Organization Address City/[facility]/ZIP Co de Phone Number [facility] [address] [address] * (ABNORMAL) CBC WITH PLTS/AUTO DIFF (11/20/2023 1:20 PM CDT) WBC 4.75 4.00 - 10.00 k/cmm [facility] RBC 2.54(L) 4.60 - 6.00 m/cmm [facility] Hgb 8.4(L) 13.1 - 17.5 g/dL [facility] Hematocrit 24.7(L) 40.0 - 51.0 % [facility] MCV 97.2 80.0 - 100.0 fL [facility] MCH 33.1(H) 25.0 - 32.0 pg [facility] MCHC 34.0 31.0 - 36.0 g/dL [facility] RDW 14.5 11.5 - 14.5 % [facility] Plt 92(L) 150 - 400 k/cmm [facility] MPV 11.6 6.5 - 12.5 fL [facility] Automated Abs Neutrophil 3.10 1.70 - 6.50 k/cmm [facility] Comment:Preliminary ANC, Fin al Result to Follow Abs Immature Granulocyte 0.01 0.00 - 0.09 k/cmm [facility] Comment:The Immature Granulo cyte Absolute count contains metamyelocytes and myelocytes. Abs Neutrophil 3.10 1.70 - 6.50 k/cmm [facility] Abs Lymphocyte 1.09 0.80 - 4.00 k/cmm [facility] Abs Monocyte 0.41 0.20 - 1.00 k/cmm [facility] Abs Eosinophil 0.13 0.00 - 0.60 k/cmm [facility] Abs Basophil 0.01 0.00 - 0.20 k/cmm [facility] Blood 11/20/2023 1:20 PM CDT 11/20/2023 2:24 PM CDT Narrative [facility] - 11/20/2023 2:35 PM CDT Bill to Corporate Kidney Acquisition ??Account [facility]a [facility] [address] [place] [address] * VARICELLA-ZOSTER VIRUS (VZV) ANTIBODY, IGG (11/20/2023 1:20 PM CDT) VZV Ab, IgG Positive [facility] Comment:Positive results ind icate current or past exposure to Varicella-Zoster virus or prior immunization. Blood 11/20/2023 1:20 PM CDT 11/20/2023 2:24 PM CDT Narrative [facility] - 11/21/2023 9:03 AM CDT Bill to Corporate Kidney Acquisition ??Account [facility] Performing Organization Address City/[facility]/ZIP Co de Phone Number [facility] [address] [address] * MEASLES VIRUS (RUBEOLA) ANTIBODY, IGG (11/20/2023 1:20 PM CDT) Measles Ab, IgG Index 116.00 AU/ml [facility] Measles Ab, IgG Positive [facility] Comment:Positive results (>= 16.5) indicate current or past exposure to Measles virus or prior immunization. Blood 11/20/2023 1:20 PM CDT 11/20/2023 2:24 PM CDT Narrative [facility] - 11/21/2023 9:03 AM CDT Bill to Corporate Kidney Acquisition ??Account [facility] Performing Organization Address [facility] Co de Phone Number [facility] [address] [address] * RPR SYPHILIS SCREEN (11/20/2023 1:20 PM CDT) RPR Screen Non-Reactive Non-Reacti ve [facility] RPR Titer Not Reflexed [facility] Blood 11/20/2023 1:20 PM CDT 11/21/2023 10:14 AM CDT Narrative [facility] - 11/21/2023 11:32 AM CDT Bill to Corporate Kidney Acquisition ??Account [facility] [address] [address] * PROTHROMBIN (PT) & INR (11/20/2023 1:20 PM CDT) PT 11.6 9.0 - 12.5 sec [facility] INR 1.0 0.8 - 1.1 [facility] Comment: Warfarin Therapeutic Range: Standard Intensity: 2.0 - 3.0 High Intensity: 2.5 - 3.5 Blood 11/20/2023 1:20 PM CDT 11/20/2023 2:25 PM CDT Narrative [facility] - 11/20/2023 2:54 PM CDT Bill to Corporate Kidney Acquisition Account [facility] [address] [address] * PHOSPHORUS (11/20/2023 1:20 PM CDT) Pathologist [facility] Phosphorus 3.6 2.5 - 4.5 mg/dL [facility] Blood 11/20/2023 1:20 PM CDT 11/20/2023 2:24 PM CDT Narrative [facility] - 11/20/2023 2:49 PM CDT Bill to Corporate Kidney Acquisition ??Account [facility] [address] [address] * HEPATITIS C ANTIBODY (11/20/2023 1:20 PM CDT) Hep C Thee Nonreactive Nonreactive [facility] Comment:Performance characte ristics have not been established with this test on patients less than 10 years of age. Blood 11/20/2023 1:20 PM CDT 11/20/2023 2:24 PM CDT Narrative [facility] - 11/20/2023 3:19 PM CDT Bill to Corporate Kidney Acquisition ??Account [facility] Performing Organization Address City/[facility]/ZIP Co de Phone Number [facility] [address] [address] * HEPATITIS B SURFACE ANTIGEN (11/20/2023 1:20 PM CDT) HBV Surface Ag Nonreactive Nonreactive [facility] Comment: Testing performed at: [facility] [address] [address] Blood 11/20/2023 1:20 PM CDT 11/20/2023 2:24 PM CDT Narrative [facility] - 11/20/2023 3:19 PM CDT Bill to Corporate Kidney Acquisition ??Account [facility] Performing Organization Address [facility] Co de Phone Number [address] [address] * HEPATITIS B SURFACE ANTIBODY (11/20/2023 1:20 PM CDT) HBsAb Quant 83.42 mIU/ml [facility] Comment: The Hepatitis B Surface Antibody quantitation is greater than or equal to 12.00 mIU/mL. This patient has either had an antibody response to a hepatitis B vaccination, received a transfusion or has recovered from a hepatitis B infection. This patient should be considered immune to hepatitis B. HBsAb Interpretation Reactive [facility] Blood 11/20/2023 1:20 PM CDT 11/20/2023 2:24 PM CDT Narrative [facility] - 11/20/2023 3:19 PM CDT Bill to Corporate Kidney Acquisition ??Account [facility] Performing Organization Address City/[facility]/ZIP Co de Phone Number [facility] [address] [address] * GGT (11/20/2023 1:20 PM CDT) GGT 13 10 - 71 IU/L [facility] Blood 11/20/2023 1:20 PM CDT 11/20/2023 2:24 PM CDT Narrative [facility] - 11/20/2023 2:49 PM CDT Bill to Corporate Kidney Acquisition ??Account [facility] [address] [place] [address] * (ABNORMAL) EBV VCA IGG (11/20/2023 1:20 PM CDT) EBV Ab VCA IGG >750.0(H) 0.0 - 21.9 U/mL [employer] Comment: INTERPRETIVE INFORMATION: Parveen-Monsalve Virus Antibody to ?Viral Capsid Antigen, IgG ??17.9 U/mL or less.......Not Detected ??18.0-21.9 U/mL..........Indeterminate - Repeat testing in ?10-14 days may be helpful. ??22.0 U/mL or greater....Detected Performed By: [facility] [address] [place] [address] Chief Specialist Leed: Salinas Prajapati MD, PhD CLIA Number: [id number] PARVEEN-MONSALVE VIRUS ANTIBODY TO VIRAL CAPSID ANTIGEN IGG REFERENCE INTERVAL: EFFECTIVE 10/11/09 NEGATIVE: ??17.9 U/ML OR LESS EQUIVOCAL: 18.0 - 21.9 U/ML POSITIVE: ??22.0 U/ML OR GREATER Serum 11/20/2023 1:20 PM CDT 11/20/2023 2:24 PM CDT Narrative [facility] - 11/21/2023 7:21 PM CDT Bill to Corporate Kidney Acquisition ??Account [facility] Performing Organization Address City/[facility]/ZIP Co de Phone Number [facility] [address] [place] [address], * CALCIUM, TOTAL (11/20/2023 1:20 PM CDT) Calcium 8.6 8.6 - 10.0 mg/dL [facility] Blood 11/20/2023 1:20 PM CDT 11/20/2023 2:24 PM CDT Narrative [facility] - 11/20/2023 2:49 PM CDT Bill to Corporate Kidney Acquisition ??Account [facility] [address] [address] * BILIRUBIN, TOTAL (ONLY) (11/20/2023 1:20 PM CDT) Bili Total 0.5 <=1.2 mg/dL [facility] Blood 11/20/2023 1:20 PM CDT 11/20/2023 2:24 PM CDT Narrative [facility] - 11/20/2023 2:49 PM CDT Bill to Corporate Kidney Acquisition ??Account [facility] Performing Organization Address City/[facility]/ZIP Co de Phone Number [facility] [address] [address] * AST (SGOT) (11/20/2023 1:20 PM CDT) AST(SGOT) 15 5 - 40 IU/L [facility] Blood 11/20/2023 1:20 PM CDT 11/20/2023 2:24 PM CDT Narrative [facility] - 11/20/2023 2:49 PM CDT Bill to Corporate Kidney Acquisition ??Account [facility] Performing Organization Address City/[facility]/ZIP Co de Phone Number [facility] [address] [address] * PTT (APTT) (11/20/2023 1:20 PM CDT) APTT 33.4 25.0 - 37.0 sec [facility] Blood 11/20/2023 1:20 PM CDT 11/20/2023 2:25 PM CDT Narrative [facility] - 11/20/2023 2:54 PM CDT Bill to Corporate Kidney Acquisition Account [facility] [address] [address] * ALT (SGPT) (11/20/2023 1:20 PM CDT) Pathologist [facility] ALT (SGPT) 9 <=41 IU/L [facility] Blood 11/20/2023 1:20 PM CDT 11/20/2023 2:24 PM CDT Narrative [facility] - 11/20/2023 2:49 PM CDT Bill to Corporate Kidney Acquisition ??Account [facility] Performing Organization Address [facility] Co de Phone Number [facility] [address] [address] * ALKALINE PHOSPHATASE (11/20/2023 1:20 PM CDT) Alk Phos 118 40 - 129 IU/L [facility] Comment:No reference range e stablished for patients <18 years old. Blood 11/20/2023 1:20 PM CDT 11/20/2023 2:24 PM CDT Narrative [facility] - 11/20/2023 2:49 PM CDT Bill to Corporate Kidney Acquisition ??Account [facility] Performing Organization Address City/[facility]/ZIP Co de Phone Number [facility] [address] [address] * ALBUMIN (11/20/2023 1:20 PM CDT) Albumin 4.3 3.8 - 5.1 g/dL [facility] Blood 11/20/2023 1:20 PM CDT 11/20/2023 2:24 PM CDT Narrative [facility] - 11/20/2023 2:49 PM CDT Bill to Corporate Kidney Acquisition ??Account [facility] Performing Organization Address City/[facility]/ZIP Co de Phone Number [address] [address] * BLOOD TYPING-ABO/RH (11/20/2023 1:20 PM CDT) ABORHG O POS [facility] Blood 11/20/2023 1:20 PM CDT 11/20/2023 2:29 PM CDT Narrative [facility] - 11/20/2023 3:06 PM CDT Bill to Corporate Kidney Acquisition ??Account [facility]a [facility] TRANSFUSION [employer] Performing Organization Address City/[facility]/ZIP Co de Phone Number [facility] [address] [address] * XR CHEST 2 VIEWS PA + [...] likely physiologic. Reading Radiologist: Shilo Cronin Blayne CARIAS CT BODY * [facility] EXERCISE STRESS ECHO COMPLETE WITH CONTRAST (11/20/2023 [...] ? 67.01 Inches MACO Patient Number ?? [id number] ?Weight ? 205 Pounds Date of ?1980 ? BSA ?2.04 m^2 Age ?43 ? Tape Number: Gender ? Male ? Study Date ? 11/20/2023 10:51 AM Nurse Unit Manager ?MA ? Ordering Provider ??CORBY CARUSO Referring ? Interpreting ? Hue Flynn MD Physician ? Physician ?[id number] Type of Study: Stress procedure: [facility] EXERCISE STRESS ECHO, Color Doppler, Spectral Doppler [...] HR: 176 bpm ? HR BP Product: 14029 % of predicted HR: 62 ? Max [...] EMIL Height 67.01 Inches MACO Patient Number [id number] Weight 205 Pounds Date of 1980 BSA 2.04 m^2 Age 43 Tape Number: Gender Male Study Date 11/20/2023 10:51 AM Nurse Unit Manager MA Ordering Provider CORBY CARUSO Referring Interpreting Hue Flynn MD Physician Physician [id number] Type of Study: Stress procedure: ECH EXERCISE [...] Predicted HR: 176 bpm HR BP Product: % of predicted HR: 62 Max Exercise: [...] Quiroz MD RAD ECHO Performing Organization Address [facility] Co de Phone Number [facility] * EKG ADULT (12-LEAD) (11/20/2023 10:46 AM CDT) 11/20/2023 10:4 6 AM CDT Impressions [facility] CVIS EKG ORDERS - 11/20/2023 10:46 AM CDT SINUS RHYTHM NORMAL ECG No previous ECG available for comparison. P-R Interval 174 ms QRS Interval 93 ms QT Interval 367 ms QTC Interval 409 ms P [place] 46 QRS [place] 61 T Wave [place] 68 Narrative Procedure Note Jean Liu MD - 11/20/2023 IMPRESSION SINUS RHYTHM NORMAL ECG No previous ECG available for comparison. P-R Interval 174 ms QRS Interval 93 ms QT Interval 367 ms QTC Interval 409 ms P [place] 46 QRS [place] 61 T Wave [place] 68 Blayne Quiroz MD EKG [facility] CVIS EKG ORDERS from Last 3 Months CORPORATE,KIDNEY ACQUISITION COST-CURRENT NEW Corporate Other 05/26/2020 Attn Williams Lindquist [facility] [address] [place] [address]
--- OUTSIDE RECORDS SUMMARY | 2023-12-05 10:36 | XMS_ITS ---
Author Name Krystian, Clinic Address [address] [place] [address] Phone [phone] Organization [facility] e, NA DOCUMENT DISCLAIMER Multiple document versions may exist, please be sure you review the latest version. The information in the [facility] Continuity of Care Document represents a summary [...] Start Date End Date Stat us Coreg 6.25 mg Take by mouth twice a day [...] Sign Value Date / Time Blood Pressure-sitting 181/73 mmHg November 07:12 AM Blood Pressure-standing 174/66 mmHg December 02, 2023 07:12 AM Heart Rate 77 beats per minute December 02, 2023 07:12 AM Temperature 97.9 deg. F December 02, 2023 07:12 AM Weight Vital Sign Value Date / Time Estimated Dry Weight 87 kg October 11:59 PM Pre-Dialysis 83.9 kg December 02, 2023 07:12 AM Post-Dialysis 84.3 kg December 02, 2023 07:12 AM Other Other Value Date / Time Height 175 cm August 27, 2023 12 :00 AM Body Mass Index 28.41 kg/m2 November 22 10:29 AM LAB RESULTS Hematology Result Type Result Value Relevant Referen ce Range Interpretation Date UIBC (Calc) 154 mcg/dL 155 - 355 [...] mcg/dL 155 - 355 mcg/dL - July Neutrophils 68.8 % 40.0 - 75.0 % - August 30, 2 024 WBC (No Diff) 4.25 1000/mcL 4.80 - 10.80 1000/mcL Low August 31, 2023 Transferrin Sat. (Calc) 43 % 20 - 55 % - August 31, 2023 TIBC 247 mcg/dL 185 - 515 mcg/dL - August 31, 2023 UIBC (Calc) 142 mcg/dL 155 - 355 mcg/dL Low August Ferritin 984 ng/mL 22 - 322 ng/mL High August 30, 2 024 [place] 3.2 % 0.0 - 4.0 % - September 26 24 Basophils 1.5 % 0.0 - 1.5 % - September 26 Eosinophil 6.8 % 0.0 - 7.0 % - September 26 Monocytes 7.9 % 3.0 - 10.0 % [...] % 11.5 - 14.5 % - October Eosinophil 2.7 % 0.0 - 7.0 % - November 03, 2023 Basophils 0.6 % 0.0 - 1.5 % - November 03, 2023 [place] 3.5 % 0.0 - 4.0 % - November 03, 2023 WBC (No Diff) 5.63 1000/mcL 4.80 - 10.80 1000/mcL - November 03, 2023 Neutrophils 54.3 % 40.0 - 75.0 % - November 03, 2023 Lymphocytes 33.7 % 19.0 - 48.0 % - November 03, 2023 Monocytes 5.2 % 3.0 - 10.0 % - October RBC 2.40 mill/mcL 4.70 - 6.10 mill/mcL Low December 02, 2023 HCT 23.5 % 42.0 - 52.0 % Low December 02, 2023 Eosinophil 2.1 % 0.0 - 7.0 % - December 01, 024 Basophils 0.2 % 0.0 - 1.5 % - December 01, 024 [place] 3.2 % 0.0 - 4.0 % - December 01 WBC (No Diff) 5.08 1000/mcL 4.80 - 10.80 1000/mcL - December 02, 2023 Neutrophils 67.1 % 40.0 - 75.0 % - November Lymphocytes 19.9 % 19.0 - 48.0 % - November Monocytes 7.5 % 3.0 - 10.0 % - December 02, 2023 TIBC 200 mcg/dL 185 - 515 mcg/dL - December 02, 2023 Ferritin 1457 ng/mL 22 - 322 ng/mL High November Hemoglobin x 3 23.4 % 42.0 - 54.0 % Low December 02, 2023 Retic HGB (CHr) 31.3 pg 25.4 - 31.8 pg - 2023 MCH 32.3 pg 27.0 - 31.0 pg High November MCHC 33.0 g/dL 30.0 - 36.0 g/dL - December 02, 2023 RDW 14.9 % 11.5 - 14.5 % High December 02, 2023 HGB 7.8 g/dL 14.0 - 18.0 g/dL Low December 02, 2023 Metabolic/Renal Result Type Result Value Relevant Referen ce Range Interpretation Date Vitamin B12 3903 pg/mL 211 - 911 pg/mL High August 31, 2023 Potassium 6.0 mEq/L [...] 23 mg/dL 6 - 19 mg/dL High [place] 01, 2 024 URR, Calc 57 % 65 - 80 % Low September 26 Bicarbonate 26 mEq/L 20 - 31 mEq/L - November 03, 2023 Potassium 7.2 mEq/L 3.5 - 5.1 mEq/L Critically high Oct emb2023 Chloride 107 mEq/L 96 - 108 mEq/L - November 03, 2023 BUN/Creat Ratio 5.0 10.0 - 20.0 Low Octembe r 2023 Sodium 136 mEq/L 136 - [...] - 5.1 mEq/L High November 08, 2023 Potassium 5.4 mEq/L 3.5 - 5.1 mEq/L High November 22, 2023 Chloride 96 mEq/L 96 - 108 mEq/L - November Bicarbonate 30 mEq/L 20 - 31 mEq/L - November BUN 42 mg/dL 6 - 19 mg/dL High December 02, 2023 Sodium 135 mEq/L 136 - 145 mEq/L Low November BUN/Creat Ratio 5.8 10.0 - 20.0 Low December 02, 2023 Creatinine, Serum 7.24 mg/dL 0.60 - 1.30 mg/dL High December 02, 2023 URR, Calc 52 % 65 - 80 % Low December 01 BUN, Post 20 mg/dL 6 - 19 mg/dL High December 02, 2023 HD Adequacy Result Type Result Value [...] Range Interpretation Date Vitamin D 25 Hydroxy 28.6 ng/mL 30.0 - 100.0 ng/mL Low January 15, 2023 Magnesium 2.5 mg/dL 1.6 - 2.6 mg/dL - January 15, 2023 Magnesium 2.5 mg/dL 1.6 - 2.6 mg/dL - May 16, 2023 PTH-Intact, Plasma 229 pg/mL 16 - 80 pg/mL High Jul Magnesium 2.7 mg/dL 1.6 - 2.6 mg/dL High August 15, 2023 Vitamin D 25 Hydroxy 35.2 ng/mL 30.0 - 100.0 ng/mL - August 31, 2023 PTH-Intact, Plasma 102 pg/mL 16 - 80 pg/mL High Aug Magnesium 2.4 mg/dL 1.6 - 2.6 mg/dL - August 31, 2023 Calcium, Total 8.5 mg/dL 8.7 - 10.4 mg/dL Low Sepu st 2023 Ca x P Product 37 0 - - September 27, 2023 Phosphorus 4.4 mg/dL 2.6 - 4.5 mg/dL - September Corrected Ca x P Product 38 0 - 54 - September 27, 2023 PTH-Intact, Plasma 291 pg/mL 16 - 80 pg/mL High Sep us2023 Corrected Ca x P Product 37 0 - 54 - November 02 Phosphorus 4.4 mg/dL 2.6 - 4.5 mg/dL - November 03, 2023 Ca x P Product 36 0 - 54 - November 03, 2023 Calcium, Total 8.2 mg/dL 8.7 - 10.4 mg/dL Low Sept ember 2023 PTH-Intact, Plasma 328 pg/mL 16 - 80 pg/mL High Sep tember 2023 Corrected Ca x P Product 45 0 - 54 - December 02, 2023 Calcium, Total 8.8 mg/dL 8.7 - 10.4 mg/dL - Octo lamberto 2023 Ca x P Product 44 0 - 54 - November Phosphorus 5.0 mg/dL 2.6 - 4.5 mg/dL High November Alkaline Phosphatase 83 U/L 40 - 129 U/L - Oc tob2023 PTH-Intact, Plasma 357 pg/mL 16 - 80 pg/mL High Nov nicky 2023 Magnesium 2.7 mg/dL 1.6 - 2.6 mg/dL High November Liver/Nutrition Result Type Result Value Relevant Reference Range Interpre tation Date Albumin (BCG) 3.7 g/dL 3.5 - 5.2 g/dL - September 27, 2023 Albumin (BCG) 3.7 g/dL 3.5 - 5.2 g/dL - 2023 Albumin (BCG) 3.9 g/dL 3.5 - 5.2 g/dL - December 02, 2023 Trace Elements Result Type Result Value Relevant Reference Range Interpre tation Date Aluminum 5 mcg/L 0 - 10 mcg/L - August 30 Infectious Diseases Result Type Result Value Relevant Referen ce Range Interpretation Date Hep B core Ab Total (anti-HBc) Negative No Reference Range Provided - January 15, 2023 Hep B Surface Ag (HBsAg) Negative No Reference Range Provided - June 13, 2023 Hep B Surface Ab (anti-HBs) 317 mIU/mL No Reference Range Provided - June 13, 2023 DIALYSIS PRESCRIPTION NxStage Hemodialysis Data Element Value Order Date/Time October 29, 2023 Frequency 4X Week Treatment Days Yesenia Dialyzer/Cartridge CAR 172 Therapy Fluid (dialysate) 2.0 [...] 15g IMMUNIZATIONS Vaccine Date Dose Route Status PREVNAR November 22, 2023 0.5 mL Intramuscular Com pleted HEPLISAV-B, Series 1 of 4 November 15, 2022 20.0 mcg In tramuscular Completed TRANSPLANT WAITLIST STATUS No Information on Transplant Waitlist Status ADVANCE DIRECTIVES Directive Description Ordered By Effective Date Resuscitation status Full Code Julito Daily ul 2023 DIALYSIS TREATMENTS NxStage-HHD Date Pre-Treatment Vitals Post-Treatment Vitals Durat ion(hr) Exchanges BFR(mL/min) Cartridge Type Dialysate Dialysis Access Meds-entered by patient Octob er 2023 Weight 88.5 kg Weight 87.3 kg 3:1 1 of 250 CAR-172-C 2K 45 Lactate Blood Pressure-sitting 186/83 mmHg Blood Pressure-sitting 18 9/73 mmHg 2 of 23 400 Blood Pressure-standing 196/88 mmHg Blood Pressure-standing 184/68 mmHg 3 of 23 - Heart Rate 89 beats per minute Heart Rate 88 beats per minute 4 of 23 400 Temperature 97.9 deg. F Temperature 98.3 deg. F 5 of 23 - - - - - 6 of 23 400 - - - - 7 of 23 - - - - - 8 of 23 400 - - - - 9 of 23 390 - - - - 10 of 23 390 - - - - 11 of 23 370 - - - - 12 of 23 350 - - - - 13 of 23 - - - - - 14 of 23 350 - - - - 15 of 23 - - - - - 16 of 23 - - - - - 17 of 23 400 - - - - 18 of 23 400 - - - - 19 of 23 400 - - - - 20 of 23 400 - - - - 21 of 23 400 - - - - 22 of 23 - - - - - 23 of 23 - December 01, 2023 Weight 85.6 kg Weight 84.8 kg 3:0 1 of 13 230 CAR-172-C 2K 45 Lactate Not available Heparin 1999 Via Access Heparin 1999 Access Blood Pressure-sitting 180/79 mmHg Blood Pressure-sitting 18 5/72 mmHg 2 of 13 290 Blood Pressure-standing 183/72 mmHg Blood Pressure-standing 177/61 mmHg 3 of 13 - Heart Rate 83 beats per minute Heart Rate 83 beats per minute 4 of 13 400 Temperature 98.2 deg. F Temperature 98.8 deg. F 5 of 13 40 0 - - - - 6 of 13 400 - - - - 7 of 13 400 - - - - 8 of 13 400 - - - - 9 of 13 400 - - - - 10 of 13 400 - - - - 11 of 13 400 - - - - 12 of 13 400 - - - - 13 of 13 400 December 02, 2023 Weight 83.9 kg Weight 84.3 kg 2:54 1 of 24 200 CAR-172-C 2K 45 Lactate Not available Heparin 1999 Via Access Heparin 2000 Access Blood Pressure-sitting 173/85 mmHg Blood Pressure-sitting 18 1/73 mmHg 2 of 24 - Blood Pressure-standing 163/73 mmHg Blood Pressure-standing 174/66 mmHg 3 of 24 260 Heart Rate 74 beats per minute Heart Rate 77 beats per minute 4 of 24 400 Temperature 97.8 deg. F Temperature 97.9 deg. F 5 of 24 40 0 - - - - 6 of 24 400 - - - - 7 of 24 400 - - - - 8 of 24 400 - - - - 9 of 24 400 - - - - 10 of 24 - - - - - 11 of 24 - - - - - 12 of 24 13 - - - - 13 of 24 41 - - - - 14 of 24 100 - - - - 15 of 24 100 - - - - 16 of 24 5 - - - - 17 of 24 13 - - - - 18 of 24 - - - - - 19 of 24 41 - - - - 20 of 24 11 - - - - 21 of 24 2 - - - - 22 of 24 - - - - - 23 of 24 - - - - - 24 of 24 -
--- OUTSIDE RECORDS SUMMARY | 2023-12-05 10:37 | XMS_ITS | Encounter Summary ---
Author Organization [facility] Address [address] [place] [address] Phone Care Team Providers Care Insulation Cutter Name Role Phone Unavailable Primary Care Provider Unavailabl e Reason for Visit * Reason Comments Pre Kidney Transplant Evaluation Encounter Details Date Type Department Care Team (Late st Contact Info) Description 11/20/2023 2:30 PM CDT Nurse Only Transplant Program [address] [facility] [address] [place], [place] [phone] Neva Carbajal MBBS [address] [facility] [address] [place], [place] [phone] RnCali-Pre Recipient Chronic kidney disease (Primary Dx) [...] and have labs drawn. Also meeting with corrugator machine operator. Discussed when labs results would be returned. Chinyere Valencia RN, 11/20/2023 2:25 PM documented in this encounter Miscellaneous Notes * Transplant Care Plan - Chinyere Valencia RN - 11/20/2023 2:30 PM CDT Transplant-Recipient Plan Transplant-Pre Care Plan Maco Stein Recipient Care Plan Pretransplant I) Referral received by financial services consultant from Nephrologists, dialysis unit or patient. II) Patient scheduled to attend information session. III) Patient attends information session which includes Polymerization Oven Operator, Transplant Order Entry Specialist, Field Services Director, Living Donor Coordinator, Transplant Surgeon, Security Intelligence Analyst, and Transportation Officer Discussed the following with potential transplant candidate and their family members: IV) A) Advantages and disadvantages of transplant V) B) Possible complications post transplant ) C)Medications and their side effects VII) D) Hospitalization and frequency of clinic visits post-op VIII) E) Requirement that all out-of-town patients remain in [facility] for at least 2 weeks post-op, [...] ALA levels to be drawn 2. Patient's Transportation Officer notified 3. Patient's dialysis unit notified and [...] 2. Patient notification letter sent. 3. Patient???s Transportation Officer notified 4. Patient???s dialysis unit notified Transplant-Recipient Plan Transplant-Pre Care Plan Maco PompashellyUnderwood WAITLIST MANAGEMENT I) Monthly Updates a. Brief summary of patient's transplant status sent out by the Transplant Clinic monthly to the dialysis unit or if predialysis to the Transportation Officer. II) Semiannual Check Calls Patient contacted by phone by transplant team manager to verify current: contact information, insurance, health [...] [facility] [address] [address] Denae Mckeon MD [address] [place], [place] [phone] Scheduled Discharge Disposition: Discharged to home or self care 01/01/2024 2:00 PM V BELT FINISHER Office Visit Transplant Program [address] [place], [place] [address] Ning Leiva MD [address] [facility] [address] [place] [address] Scheduled Discharge Disposition: Discharged to home or [...] Donor, [place]agas Screen Non Reactive Non Reactive [employer] Blood 11/20/2023 1:20 PM CDT 11/23/2023 11:23 AM CDT [facility] [employer] [address] [place] [address] * COCCIDIOIDES AB SCREEN WITH REFLEX (11/20/2023 1:20 PM CDT) Coccidioides Antibody Negative Negative [facility] Comment: Repeat testing on a new sample in 2-3 weeks if clinically indicated. ADDITIONAL INFORMATION This test has been modified from the breaker off's instructions. Its performance characteristics were determined by [facility] in a manner consistent with CLIA requirements. This test has not been cleared or approved by the U.S. Food and Drug Administration. Test Performed by: [facility] - [address] [address] Field Placement Director: Sawyer Alejandre Ph.D.; CLIA# [id number] Serum 11/20/2023 1:20 PM CDT 11/20/2023 2:24 PM CDT Narrative [facility] - 11/21/2023 8:16 PM CDT Bill to Corporate Kidney Acquisition Account Neva Carbajal [facility] [address] [place] [address] * (ABNORMAL) QUANTIFERON-TB GOLD PLUS (11/20/2023 1:20 PM CDT) QuantiFERON TB Gold Plus Positive( A) Negative [facility] QFT TB 1 0.19 [facility] QFT TB 2 0.35 [facility] QFT TB MITOGEN 9.94 [facility] QFT NIL 0.06 [facility] Blood 11/20/2023 1:20 PM CDT 11/22/2023 7:34 AM CDT Narrative [facility] - 11/22/2023 10:36 AM CDT Bill to Corporate Kidney Acquisition ??Account [facility] [address] [address] * HEPATITIS B CORE TOTAL BHAKTI (11/20/2023 1:20 PM CDT) HBV Core Total Bhakti Nonreactive Nonreactive [facility] Blood 11/20/2023 1:20 PM CDT 11/20/2023 3:41 PM CDT Narrative [facility] - 11/20/2023 4:11 PM CDT Bill to Corporate Kidney Acquisition Account [facility] [address] [address] * MEASLES VIRUS (RUBEOLA) ANTIBODY, IGG (11/20/2023 1:20 PM CDT) Measles Ab, IgG Index 116.00 AU/ml [facility] Measles Ab, IgG Positive [facility] Comment:Positive results (>= 16.5) indicate current or past exposure to Measles virus or prior immunization. Blood 11/20/2023 1:20 PM CDT 11/20/2023 2:24 PM CDT Narrative [facility] - 11/21/2023 9:03 AM CDT Bill to Corporate Kidney Acquisition ??Account [facility] Performing Organization Address City/[facility]/ZIP Co de Phone Number [facility] [address] [address] * RPR SYPHILIS SCREEN (11/20/2023 1:20 PM CDT) RPR Screen Non-Reactive Non-Reacti ve [facility] RPR Titer Not Reflexed [facility] Blood 11/20/2023 1:20 PM CDT 11/21/2023 10:14 AM CDT Narrative [facility] - 11/21/2023 11:32 AM CDT Bill to Corporate Kidney Acquisition ??Account [facility] [address] [address] * (ABNORMAL) EBV VCA IGG (11/20/2023 1:20 PM CDT) EBV Ab VCA IGG >750.0(H) 0.0 - 21.9 U/mL [facility] Comment: INTERPRETIVE INFORMATION: Parveen-Monsalve Virus Antibody to ?Viral Capsid Antigen, IgG ??17.9 U/mL or less.......Not Detected ??18.0-21.9 U/mL..........Indeterminate - Repeat testing in ?10-14 days may be helpful. ??22.0 U/mL or greater....Detected Performed By: [facility] [address] [place] [address] Corporate Development Manager: Salinas Prajapati MD, PhD CLIA Number: [id number] PARVEEN-MONSALVE VIRUS ANTIBODY TO VIRAL CAPSID ANTIGEN IGG REFERENCE INTERVAL: EFFECTIVE 10/11/09 NEGATIVE: ??17.9 U/ML OR LESS EQUIVOCAL: 18.0 - 21.9 U/ML POSITIVE: ??22.0 U/ML OR GREATER Serum 11/20/2023 1:20 PM CDT 11/20/2023 2:24 PM CDT Narrative [facility] - 11/21/2023 7:21 PM CDT Bill to Corporate Kidney Acquisition ??Account [facility] [address] [place] [address], * VARICELLA-ZOSTER VIRUS (VZV) ANTIBODY, IGG (11/20/2023 1:20 PM CDT) Pathologist [facility] VZV Ab, IgG Positive [facility] Comment:Positive results ind icate current or past exposure to Varicella-Zoster virus or prior immunization. Blood 11/20/2023 1:20 PM CDT 11/20/2023 2:24 PM CDT Narrative [facility] - 11/21/2023 9:03 AM CDT Bill to Corporate Kidney Acquisition ??Account [facility] [address] [address] * PHOSPHORUS (11/20/2023 1:20 PM CDT) Phosphorus 3.6 2.5 - 4.5 mg/dL [facility] Blood 11/20/2023 1:20 PM CDT 11/20/2023 2:24 PM CDT Narrative [facility] - 11/20/2023 2:49 PM CDT Bill to Corporate Kidney Acquisition ??Account [facility] Performing Organization Address [facility]/ZIP Co de Phone Number [facility] [address] [address] * HIV COMBO (11/20/2023 1:20 PM CDT) HIV Antigen-Antibody Nonreactive Nonreactive [facility] Comment:Performance characte ristics have not been established with this test on patients less than 2 years of age. Blood 11/20/2023 1:20 PM CDT 11/20/2023 2:24 PM CDT Narrative [facility] - 11/20/2023 3:20 PM CDT Bill to Corporate Kidney Acquisition Account [facility] Performing Organization Address City/[facility]/ZIP Co de Phone Number [facility] [address] [address] * HEPATITIS C ANTIBODY (11/20/2023 1:20 PM CDT) Hep C Bhakti Nonreactive Nonreactive [facility] Comment:Performance characte ristics have not been established with this test on patients less than 10 years of age. Blood 11/20/2023 1:20 PM CDT 11/20/2023 2:24 PM CDT Narrative [facility] - 11/20/2023 3:19 PM CDT Bill to Corporate Kidney Acquisition ??Account [facility] [address] [address] * HEPATITIS B SURFACE ANTIGEN (11/20/2023 1:20 PM CDT) HBV Surface Ag Nonreactive Nonreactive [facility] Comment: Testing performed at: [facility] [address] [address] Blood 11/20/2023 1:20 PM CDT 11/20/2023 2:24 PM CDT Narrative [facility] - 11/20/2023 3:19 PM CDT Bill to Corporate Kidney Acquisition ??Account [facility] Performing Organization Address [facility] Co de Phone Number [facility] [address] [address] * HEPATITIS B SURFACE ANTIBODY (11/20/2023 1:20 PM CDT) HBsAb Quant 83.42 mIU/ml [facility] Comment: The Hepatitis B Surface Antibody quantitation is greater than or equal to 12.00 mIU/mL. This patient has either had an antibody response to a hepatitis B vaccination, received a transfusion or has recovered from a hepatitis B infection. This patient should be considered immune to hepatitis B. HBsAb Interpretation Reactive [facility] Blood 11/20/2023 1:20 PM CDT 11/20/2023 2:24 PM CDT Narrative [facility] - 11/20/2023 3:19 PM CDT Bill to Corporate Kidney Acquisition ??Account [facility] Performing Organization Address City/[facility]/ZIP Co de Phone Number [facility] [address] [address] * PTT (APTT) (11/20/2023 1:20 PM CDT) APTT 33.4 25.0 - 37.0 sec [facility] Blood 11/20/2023 1:20 PM CDT 11/20/2023 2:25 PM CDT Narrative [facility] - 11/20/2023 2:54 PM CDT Bill to Corporate Kidney Acquisition Account [facility] [address] [address] * PROTHROMBIN (PT) & INR (11/20/2023 1:20 PM CDT) PT 11.6 9.0 - 12.5 sec [facility] INR 1.0 0.8 - 1.1 [facility] Comment: Warfarin Therapeutic Range: Standard Intensity: 2.0 - 3.0 High Intensity: 2.5 - 3.5 Blood 11/20/2023 1:20 PM CDT 11/20/2023 2:25 PM CDT Narrative [facility] - 11/20/2023 2:54 PM CDT Bill to Corporate Kidney Acquisition Account [facility] Performing Organization Address [facility] Co de Phone Number [facility] [address] [address] * GGT (11/20/2023 1:20 PM CDT) GGT 13 10 - 71 IU/L [facility] Blood 11/20/2023 1:20 PM CDT 11/20/2023 2:24 PM CDT Narrative [facility] - 11/20/2023 2:49 PM CDT Bill to Corporate Kidney Acquisition ??Account [facility] Performing Organization Address City/[facility]/ZIP Co de Phone Number [facility] [address] [address] * (ABNORMAL) CBC WITH PLTS/AUTO DIFF (11/20/2023 1:20 PM CDT) WBC 4.75 4.00 - 10.00 k/cmm [facility] RBC 2.54(L) 4.60 - 6.00 m/cmm [facility] Hgb 8.4(L) 13.1 - 17.5 g/dL [facility] Hematocrit 24.7(L) 40.0 - 51.0 % [facility] MCV 97.2 80.0 - 100.0 fL [facility] MCH 33.1(H) 25.0 - 32.0 pg [facility] MCHC 34.0 31.0 - 36.0 g/dL [facility] RDW 14.5 11.5 - 14.5 % [facility] Plt 92(L) 150 - 400 k/cmm [facility] MPV 11.6 6.5 - 12.5 fL [facility] Automated Abs Neutrophil 3.10 1.70 - 6.50 k/cmm [facility] Comment:Preliminary ANC, Fin al Result to Follow Abs Immature Granulocyte 0.01 0.00 - 0.09 k/cmm [facility] Comment:The Immature Granulo cyte Absolute count contains metamyelocytes and myelocytes. Abs Neutrophil 3.10 1.70 - 6.50 k/cmm [facility] Abs Lymphocyte 1.09 0.80 - 4.00 k/cmm [facility] Abs Monocyte 0.41 0.20 - 1.00 k/cmm [facility] Abs Eosinophil 0.13 0.00 - 0.60 k/cmm [facility] Abs Basophil 0.01 0.00 - 0.20 k/cmm [facility] Blood 11/20/2023 1:20 PM CDT 11/20/2023 2:24 PM CDT Narrative [facility] - 11/20/2023 2:35 PM CDT Bill to Corporate Kidney Acquisition ??Account [facility] [address] [place] [address] * CALCIUM, TOTAL (11/20/2023 1:20 PM CDT) Calcium 8.6 8.6 - 10.0 mg/dL [facility] Blood 11/20/2023 1:20 PM CDT 11/20/2023 2:24 PM CDT Narrative [facility] - 11/20/2023 2:49 PM CDT Bill to Corporate Kidney Acquisition ??Account [facility] [address] [address] * BLOOD TYPING-ABO/RH (11/20/2023 1:20 PM CDT) ABORHG O POS [facility] Blood 11/20/2023 1:20 PM CDT 11/20/2023 2:29 PM CDT Narrative [facility] - 11/20/2023 3:06 PM CDT Bill to Corporate Kidney Acquisition ??Account [facility] TRANSFUSION SER VICES Performing Organization Address [facility] Co de Phone Number [address] [address] * BILIRUBIN, TOTAL (ONLY) (11/20/2023 1:20 PM CDT) Bili Total 0.5 <=1.2 mg/dL [facility] Blood 11/20/2023 1:20 PM CDT 11/20/2023 2:24 PM CDT Narrative [facility] - 11/20/2023 2:49 PM CDT Bill to Corporate Kidney Acquisition ??Account [facility] Performing Organization Address City/[facility]/ZIP Co de Phone Number [address] [address] * AST (SGOT) (11/20/2023 1:20 PM CDT) AST(SGOT) 15 5 - 40 IU/L [facility] Blood 11/20/2023 1:20 PM CDT 11/20/2023 2:24 PM CDT Narrative [facility] - 11/20/2023 2:49 PM CDT Bill to Corporate Kidney Acquisition ??Account [facility] [address] [address] * ALT (SGPT) (11/20/2023 1:20 PM CDT) ALT (SGPT) 9 <=41 IU/L [facility] Blood 11/20/2023 1:20 PM CDT 11/20/2023 2:24 PM CDT Narrative [facility] - 11/20/2023 2:49 PM CDT Bill to Corporate Kidney Acquisition ??Account [facility] Performing Organization Address City/[facility]/ZIP Co de Phone Number [facility] [address] [address] * ALKALINE PHOSPHATASE (11/20/2023 1:20 PM CDT) Alk Phos 118 40 - 129 IU/L [facility] Comment:No reference range e stablished for patients <18 years old. Blood 11/20/2023 1:20 PM CDT 11/20/2023 2:24 PM CDT Narrative [facility] - 11/20/2023 2:49 PM CDT Bill to Corporate Kidney Acquisition ??Account [facility] [address] [address] * ALBUMIN (11/20/2023 1:20 PM CDT) Albumin 4.3 3.8 - 5.1 g/dL [facility] Blood 11/20/2023 1:20 PM CDT 11/20/2023 2:24 PM CDT Narrative [facility] - 11/20/2023 2:49 PM CDT Bill to Corporate Kidney Acquisition ??Account [facility] [address] [place] [address] documented in this encounter Visit Diagnoses Diagnosis Chronic kidney disease- Primary Chronic kidney disease, unspecified documented in this encounter
--- OUTSIDE RECORDS SUMMARY | 2023-12-05 10:37 | XMS_ITS | Encounter Summary ---
Author Organization [facility] Address [address] [facility] [place] [address] Phone Care Team Providers Care Supervisor Case Loading Name Role Phone Unavailable Primary Care Provider [...] ABDOMEN & PELVIS W/O CONTRAST MATERIAL Ct [facility] [address] [place] [address] Referral ID Status Reason Start Date Expiration Date Visits Re quested Visits Authorized [id number] Closed 1 1 Encounter Details Date Type Department Care Team (Latest Contact Info) Description 11/20/2023 12:08 PM CDT - 11/20/2023 11:59 PM CDT Hospital Encounter [facility] [address] [place], [place] [address] Blayne Quiroz MD [address] [facility] [address] [place] [address] Discharge Disposition: Discharged to home or self [...] [facility] [address] [address] Denae Mckeon MD [address] [facility] [address] [place], [place] [address] Scheduled Discharge Disposition: Discharged to home or self care 01/01/2024 2:00 PM RETAIL SEASONAL SPECIALIST Office Visit Transplant Program [address] [place] [address] [address] [place], [place] [phone] Ning Leiva MD [address] [facility] [address] [place] [address] Scheduled Discharge Disposition: Discharged to home or [...]
--- OUTSIDE RECORDS SUMMARY | 2023-12-05 10:37 | XMS_ITS | Encounter Summary ---
Author Organization [facility] Address [address] [place] [address] Phone Care Team Providers Care Circus Roustabout Name Role Phone Unavailable Primary Care Provider Unavailabl e Encounter Details Date Type Department Care Team (Late st Contact Info) Description 04/25/2023 Abstract Transplant Program [address] [place] [address] [facility] [place] [address] Williams Lindquist, Transplant Optomechanical Engineer [address] [place] [phone] Social History Tobacco Use Types Packs/Day Years [...] Clinic & Specialty Center Cardiology Clinic [address] [address] Denae Mckeon MD [address] [facility] [address] [place] [address] Scheduled Discharge Disposition: Discharged to home or self care 01/01/2024 2:00 PM OIL WELL SHOOTER Office Visit Transplant Program [address] [facility] [address] [place] [address] Ning Leiva MD [address] [facility] [address] [place] [address] Scheduled Discharge Disposition: Discharged to home or self care documented as of this encounter Visit Diagnoses Not on filedocumented in this encounter
--- OUTSIDE RECORDS SUMMARY | 2023-12-05 10:37 | XMS_ITS | Encounter Summary ---
Author Organization [facility] Address [address] [facility] [place] [address] Phone Care Team Providers Care Program Lead Name Role Phone Unavailable Primary Care Provider Unavailabl e Reason for Visit * Reason Comments Medical Nutrition Therapy Encounter Details Date Type Department Care Team (Late st Contact Info) Description 11/20/2023 1:30 PM CDT Office Visit [facility] [address] [place], [place] [phone] Neva Carbajal MBBS 701 [facility] [address].860 [place], [place] [address] Jade Goode RD, LD 701 [facility] R5 [place], [place] [address] Encounter for pre-transplant evaluation for kidney transplant [...] 12:53 PM CDT documented in this encounter Progress Notes * Jade Goode RD, LD - 11/20/2023 1:30 PM CDT Kidney Center Nutrition: : 1980 43 y.o. male Anthropometrics: Estimated body mass index is 31.42 kg/m?? as calculated from the following: Height as of this encounter: 1.702 m (5' 7). Weight as of this encounter: 91 kg (200 lb 9.6 oz). Height history: ~67-69 Weight history: Recently lost wt d/t illness and admit with L leg swelling, current TW 87 kg per pt, more recently ~220# range Max adult wt ~380# at ~17-18 yrs, lost to ~200# with untreated DM, rebound wt gain after back surgery to ~280# in his late 's Eating disorder history: no evidence Wt Readings from Last 15 Encounters: 11/20/23 91 kg (200 lb 9.6 oz) 07/03/23 93 kg (205 lb) 11/20/23 200# 9.6 oz Info session 06/29/23 94 kg / 206# 12.8 oz post-dialysis 11/14/22 203# 11.2 oz 10/13/22 208# 14.4 oz 09/27/22 205# 0.4 oz Waist Circumference: 42 inches (11/20/2023) Annual measurement for assessing risk of CVD, type 2 diabetes, and all-cause mortality High risk for type 2 diabetes, dyslipidemia, hypertension, & CVD with BMI range 25 to 34.9: NHLBI: Females > 35 inches (88 cm) Males > 40 inches (102 cm ) WHO/IDF: Females > 31.5 inches (80 cm) Males > 37 inches (94 cm), > 35.4 inches (90 cm) for South , [place]an, or Citizen Of [place] https://www.hsph.harvard.edu/iwgwjau-ktnyhkpxgb-kmdflh/xjrts-fuwrqnlmgblzr-vmfzj rtxyk-qfp-ymisvciec-ethnic-groups/ Waist to Height Ratio (W:HtR): 0.63 (11/20/2023) Estimation of T2DM, HTN, CVD, and mortality risk due to central adiposity (questionable accuracy when BMI>35) 0.4 to 0.49 (no indication of increased health risks due to central adiposity) 0.5 to 0.59 (increased health risks due to increased central adiposity) 0.6 or more (further increased health risks due to high central adiposity) https://www.nice.org.uk/guidance/cg189/chapter/Recommendations#gyqrflbawwg-wfz-v avuttdsw-kpovmvjvig-zgleaow-tww-lgbitan-vmojridam (Clinical guideline [CG189] last updated 03 November 2021) Hand Plant Culture Manager Strength (HGS) Examination ([place] Society of Hand Therapists 2016) Equipment: [employer] Hydraulic Hand Dynamometer [id number] Test Hand Date Readings in pounds force Patient Mean Normal (mean for age & sex) Alert Level (minus 2 SD for age & sex) Right hand 11/20/2023 85, 85, 94 88 116.8 75.4 Left hand 11/20/2023 Dialysis access NA 112.8 75.4 Patient Position: Seated upright in chair, arms bent at 90 degrees Patient agreed to exam. Patient tolerated exam. Reference ranges p.5: https://www.[employer]/Downloads/JAMARHandDynamometer.pdf Frailty Screen: 1. How many days in the last week did you feel this way? Everything I did was an effort. I could not get going. <3 days for either statement (score 0) Energy / Exhaustion Score = 0 2. How often are you moderately or energetically engaged in physical activity? Moderately or energetically active >=3 x week (score 0) [place] Leisure Time Physical Activity (1978) Activity Metabolic Equivalent (MET) Singles tennis 8 Stairs 8 Racquetball 7 Hiking 6 Gym 6 Jogging/walking 6 Doubles tennis 6 Swimming 6 Dancing 5.5 Digging, gardening 5 Home exercise 4.5 Walking mower 4.5 Painting rojas 4.5 Biking 4 Raking lawn 4 Walking for pleasure 3.5 Bowling 3 Weightlifting 3 Kcal/week = MET x (min/60) x (sessions per wk) x (kg body wt) Physical Activity Score = 0 3. Weight loss: No (score 0) Weight Loss Score = 0 4. Plant Culture Manager Strength (dominant hand): Normal HGS for BMI (score 0) Estimated body mass index is 31.42 kg/m?? as calculated from the following: Height as of this encounter: 1.702 m (5' 7). Weight as of this encounter: 91 kg (200 lb 9.6 oz). BMI : HGS Men: <=24 : <=64# 24.1 to 26 : <=66# 26.1 to 28 : <=66# >28 : <=70.5# Women: <=23 : <=37.5# 23.1 to 26 : <=38# 26.1 to 29 : <=39.5# >29 : <=46# Plant Culture Manager Strength Score = 0 5. Walk Time / Gait Speed (usual pace over 15 feet): Normal range (score 0) Walk Time / Gait Speed Score = 0 TOTAL SCORE = 0 (Frail >3 criteria, Pre-Frail 1-2 criteria, Robust 0 criteria) Frailty in Older Adults: Evidence for a Phenotype (Fried LP, et al, J Gerontol A Biol Sci Med Sci.2001) Ability of Self-Reported Frailty Components to Predict Incident Disability, Falls, and All-Cause Mortality (Tristen Oconnell et farzaneh, J Am Residential Case Manager Assoc.2017) Social History: Alcohol: none with illness, maybe 1-2 x yr Tobacco: stopped cigarettes ~19 yrs old - maybe 1 pack every few day Herbal products: none Occupational History Not on file Tobacco Use Smoking status: Not on file Smokeless tobacco: Not on file Substance and Sexual Activity Alcohol use: Not on file Drug use: Not on file Sexual activity: Not on file Social History Narrative Not on file Lab Results Component Value Date CA 8.6 11/20/2023 PO4 3.6 11/20/2023 ALBUMIN 4.3 11/20/2023 TBILI 0.5 11/20/2023 ALP 118 11/20/2023 ALT 9 11/20/2023 AST 15 11/20/2023 No results found for: EGFRCKDEPI No results found for: LPCHOL, TRIGLYCERIDE, HDL, CALCLDL, CALCVLDL Nutrition History & Follow-up: Date 11/20/2023 Referred by Julito Cortez Referral date 03/26/23 Diagnoses ESRD, dialysis initiation 09/27/22 Additional factors T2DM, HTN, anxiety, amputation - toes, retinal detachment both eyes, back surgery Visit type Pre-tx info session Accompanied by Daughter Becki Manufacturing Supervisor 2Nd Shift NA Prior MNT Dialysis RD CDCES yrs ago per pt Weight trend ~200# at info session Appetite good Oral / GI symptoms Dry heaves AM off/on Missing teeth Allergies/Intolerances No Known Food Allergies Usual eating pattern Mostly 2 meals/d Therapeutic diet Renal dialysis - Na, K, P Portion control and moderate carbs and insulin per pt Nutrition supplements Hx premier protein Changes in eating More careful K restriction lately - tomatoes and fruit are favorites Fasting status yes Diet Recall / Frequency Recall: 11/20/2023: yesterday / recent B: microwave mac and cheese, coffee with milk with sweet creamer 1 c, couple cookies - animal crackers L: skips D: pork ribs, zucchini, onions, tomatoes, corn, rice Snack: none Fluid: black coffee ~60 oz/d, 12 oz water/expressesso, occ sparkling plain water Frequency: 11/20/2023 Fruit: avoiding d/t high K Veg: occ ~1-2 x wk - maybe squash, zucchini, corn, spinach WhGrain: corn tortillas Dairy: milk in coffee, yogurt, kefir SSBev: none Fat: lard and vegetable oil - can try canola oil Salt: moderate seasoning Meals out: 1 x wk - maybe hungarian Usual fluid intake / 24 hr ~2 L/d Urine output / 24 hr urine moderate UOP Pertinent Medications Losartan, neurontin, nephrocaps, zoloft, renvela, novolog 70/30 (30u AM, 20u pm), D3 Exercise / Activity Energy: varies - low with low BP ~4 d/wk Exhaustion: denies No longer working but helps sister with house projects Tolerating stairs in home for laundry Pertinent Labs Today: alb 4.3 11/08/23: K 7<7.2 Glucose monitoring Stopped Gale d/t expense but now wanting to resume for ease Checking manually 2 x d AM ~130-140 HS ~250's 06/04/23 A1c 7.2<7.7<8.9<<<12.6 (2000) PCP visit next couple wks for DM f/u per pt ASSESSMENT: Daily Estimated Needs Dialysis prescription Food security / support Food Insecurity: No Food Insecurity (06/04/2023) [facility] [employer] [facility] [employer] [facility] Food Insecurity Worried About Running Out of Food in the Last Year: 1 Lives with 3 kids ages 11, 17, and 22 yrs Pt and older daughter take care of groceries and cooking, daughter will provide support post-tx Secure without assist - LEA Malnutrition screen 11/20/2023: Insufficient energy intake: no Unintentional weight loss: no Decreased muscle mass: no Decreased subcutaneous fat: no Fluid accumulation: not assessed Decreased functional status: no Readiness for change Contemplation Comprehension of education provided 4+/5 Anticipated adherence 4/5 NUTRITION DIAGNOSIS: Increased nutrient needs (protein) R/T dialysis losses AEB dialysis dependence, ONS protocol prn Secondary diagnosis: Altered nutrition-related laboratory values (potassium) R/T ESRD requiring dialysis, T2DM, medication side effect, and dietary factors AEB hyperkalemia, medication list, and report of usual eating pattern INTERVENTION: Nutrition Education / Nutrition Counselin11/20/2023: info session: Reinforced moderate dietary K -Bioactive substances -Side effects of tx meds -Nutrition for healing, immunity, functional & cognitive status -Food safety post-tx -Food-medication interactions on tx meds -Physical activity -Weight management Education Materials Pre-Transplant Recipient Handbook provided at info session Goals Consistent eating pattern: Meals/snacks/ONS prn per dialysis Consistent physical activity: Gradual increase as tolerated Tolerating home projects for family, stairs for laundry at home Weight: stable - prevent wt gain ~200#, BMI~31 at info session MONITORING / EVALUATION: Nutrition risk level Moderate-high Follow up -Review at multidisciplinary meeting as needed -Dialysis RDN as needed pre-transplant -Inpatient RDN as needed post-transplant -Kidney Center RDN available ongoing Contraindications for proposed plan of care No frailty or malnutrition noted on assessment today. Risk for transplant complications noted with obesity and hyperkalemia, hx poor diabetes management with A1c >12 in past. Reports prior wt loss with illness but stable past year or more per records. Receiving ongoing education regarding hyperkalemia at dialysis. States he has diabetes f/u soon and plans to resume CGM for convenience. No nutrition contraindication for kidney tx. Other Medicare MNT Tracker: NA Remaining MNT units NA Telemedicine option NA Visit start AM/PM 130 pm Visit stop AM/PM 2 pm Total visit time 30 minutes Nutrition provider Jade Goode, RD, LD, 12/03/2023 9:58 AM Certified Clinical Transplant Dietitian [place] [phone] documented in this encounter Plan of Treatment Upcoming Encounters Date Type Department Care Team (Late st Contact Info) Description 12/18/2023 11:00 AM CDT Office Visit [facility] Cardiology Clinic [address] [address] Denae Mckeon MD [address] [place], [place] [phone] Scheduled Discharge Disposition: Discharged to home or self care 01/01/2024 2:00 PM ENROLLED NURSE Office Visit Transplant Program 701 [facility] [address]1.[address] [place], [place] [address] Ning Leiva MD [address] [place] [address] Scheduled Discharge Disposition: Discharged to home or self care documented as of this encounter Visit Diagnoses Diagnosis Encounter for pre-transplant evaluation for kidney transplant- Primary documented in this encounter
--- OUTSIDE RECORDS SUMMARY | 2023-12-05 10:37 | XMS_ITS | Encounter Summary ---
Author Organization [facility] Address 1 [place] [address] Phone Care Team Providers Care Oracle Applications Analyst Name Role Phone Unavailable Primary Care Provider Unavailabl e Reason for Visit * Prior Authorization (Routine) - Closed Specialty Diagnoses / Procedures Referred By Contac t Referred To Contact CARDIOLOGY ECHO LAB Diagnoses Encounter for other preprocedural examination KIDA Echo and EKG. Diagnoses Pre-Transplant Evaluation For Esrd (End Stage Renal Disease) [Z01.818] Procedures DC ECHO TTHRC R-T 2D W/WO M-MODE REST&STRS CONT ECG DC ECG ROUTINE ECG W/LEAST 12 LDS W/I&R DC ECG ROUTINE ECG W/LEAST 12 LDS TRCG ONLY W/O I&R Echo Lab 701 [facility] [place] [address] Referral ID Status Reason Start Date Expiration Date Visits Re quested Visits Authorized [id number] Closed 2 2 Encounter Details Date Type Department Care Team (Latest Contact Info) Description 11/20/2023 9:55 AM CDT - 11/20/2023 11:59 PM CDT Hospital Encounter [facility] Echo Lab 701 [facility] [address] [place] [address] Blayne Quiroz MD [address] [address] Hue Padilla, RATNA 701 [place] [address] Jerel Pena, RN 701 [place] [address] Discharge Disposition: Discharged to home [...] Clinic & Specialty Center Cardiology Clinic [address] [address] Denae Mckeon MD 701 [facility] [address]5 [place] [address] Scheduled Discharge Disposition: Discharged to home or self care 01/01/2024 2:00 PM CLAIMS EXAMINER Office Visit Transplant Program 701 [facility] [address] [place] [address] Ning Leiva MD 701 [facility] [address] [place] [address] Scheduled Discharge Disposition: Discharged to home or [...] Name ? [place] ?Height ? 67.01 Inches JESSICA Patient Number ?? [id number] ?Weight ? 205 Pounds Date of ?1980 ? BSA ?2.04 m^2 Age ?43 ? Tape Number: Gender ? Male ? Study Date ? 11/20/2023 10:[address] Supervisor ?MA ? Ordering Provider ??CORBY CARUSO Referring ? Interpreting ? Hue Flynn MD Physician ? Physician ?[id number] Type of Study: Stress procedure: ECH EXERCISE [...] HR: 176 bpm ? HR BP Product: 58490 % of predicted HR: 62 ? Max [...] VINAY Height 67.01 Inches JESSICA Patient Number [id number] Weight 205 Pounds Date of 1980 BSA 2.04 m^2 Age 43 Tape Number: Gender Male Study Date 11/20/2023 10:[address] Supervisor MA Ordering Provider CORBY CARUSO Referring Interpreting Hue Flynn MD Physician Physician [id number] Type of Study: Stress procedure: ECH EXERCISE [...] Predicted HR: 176 bpm HR BP Product: 61338 % of predicted HR: 62 Max Exercise: [...] improved withstress. Blayne Quiroz MD RAD ECHO [facility] documented in this encounter Visit Diagnoses [...]
--- OUTSIDE RECORDS SUMMARY | 2023-12-05 10:37 | XMS_ITS | Encounter Summary ---
Author Organization [facility] Address [address] [place] [address] Phone Care Team Providers Care Soaking Pit Operator Name Role Phone Unavailable Primary Care Provider Unavailabl e Encounter Details Date Type Department Care Team (Late st Contact Info) Description 09/03/2023 Documentation Only Transplant Program [address] [place], [place] [phone] Williams Lindquist Transplant Dry Mixer [address] [place], [place] [address] Social History Tobacco Use Types Packs/Day Years Used Date Smoking Tobacco: Never Assessed Sex and Gender Information Value Date Recorded Sex Assigned at Not on file Gender Identity Not on file Sexual Orientation Not on file documented as of this encounter Progress Notes * Williams Lindquist Transplant Dry Mixer - 09/03/2023 9:30 AM CDT D/A: Patient's Emergency Medical Assistance checked in [facility] website and found to be inactive. Patient was called with health occupations instructor and given this information. Patient responded in Croatian and does not need an manager perioperative. Patient stated he believes everything has been covered. Explained that his coverage was checked in the Medical Assistance website which his ID number was entered and the response listed his name and that coverage is inactive. Patient was told to contact [facility] appears he needs to renew his coverage. Patient was also told that appointments scheduled for 09/04/2023 will be canceled. Patient was requested to call when his coverage is in place again. sales and marketing coordinator aware. Brenna Lindquist Transplant Dry Mixer, Sunday September 03, 2023 09:35 documented in this encounter Plan of Treatment Upcoming Encounters Date Type Department Care Team (Late st Contact Info) Description 12/18/2023 11:00 AM CDT Office Visit [facility]ty [facility] Cardiology Clinic [address] [address] Denae Mckeon MD [address] [place], [place] [address] Scheduled Discharge Disposition: Discharged to home or self care 01/01/2024 2:00 PM TELEVISION CABLE INSTALLER Office Visit Transplant Program 701 [facility] [address] [place], [place] [address] Ning Leiva MD [address] [place] [address] Scheduled Discharge Disposition: Discharged to home or self care documented as of this encounter Visit Diagnoses Not on filedocumented in this encounter
--- OUTSIDE RECORDS SUMMARY | 2023-12-05 10:37 | XMS_ITS | Encounter Summary ---
Author Organization [facility] Address 1 [place] [address] Phone Care Team Providers Care Race Car Mechanic Name Role Phone Unavailable Primary Care Provider Unavailabl e Encounter Details Date Type Department Care Team (Late st Contact Info) Description 09/26/2023 Abstract Transplant Program [address] [place] [address] [facility].[address] [place] [address] Williams Lindquist, Transplant Oncology Rep [address] [place] [id number] Social History Tobacco Use Types Packs/Day Years [...] Clinic & Specialty Center Cardiology Clinic [address] [address] Denae Mckeon MD 701 [facility] O5 [place] [address] Scheduled Discharge Disposition: Discharged to home or self care 01/01/2024 2:00 PM GLASS BLOWING INSTRUCTOR Office Visit Transplant Program 1 [facility] [place] [facility] [address] [place] [address] Ning Leiva MD 701 [facility] [address] [place] [address] Scheduled Discharge Disposition: Discharged to home or self care documented as of this encounter Visit Diagnoses Not on filedocumented in this encounter
--- OUTSIDE RECORDS SUMMARY | 2023-12-05 10:37 | XMS_ITS | Encounter Summary ---
Author Organization [facility] Address [address] [address] Phone Care Team Providers Care Naval Gunfire Spotter Name Role Phone Unavailable Primary Care Provider Unavailabl e Encounter Details Date Type Department Care Team (Late st Contact Info) Description 10/03/2023 Documentation Only Transplant Program [address] [place], [place] [address] Williams Lindquist Transplant Plastic Extrusion Operator [address] [place] [address] Social History Tobacco Use Types Packs/Day Years Used Date Smoking Tobacco: Never Assessed Sex and Gender Information Value Date Recorded Sex Assigned at Not on file Gender Identity Not on file Sexual Orientation Not on file documented as of this encounter Progress Notes * Williams Lindquist Transplant Plastic Extrusion Operator - 10/03/2023 9:12 AM CDT D/A: Received message from patient's daughter stating his Emergency Medical Assistance insurance isin place again. This was verified by [facility] website. Patient contacted and informed someone will becontacting him to reschedule the appointments that had to be canceled in August. Also talked with himabout applying for Uncompensated Care and patient requested an email be sent to him with the numberto call. Brenna Lindquist Transplant Plastic Extrusion Operator, Tuesday October 03, 2023 09:16 documented in this encounter Plan of Treatment Upcoming Encounters Date Type Department Care Team (Late st Contact Info) Description 12/18/2023 11:00 AM CDT Office Visit [facility] Cardiology Clinic [address] [address] Denae Mckeon MD [address] [place] [address] Scheduled Discharge Disposition: Discharged to home or self care 01/01/2024 2:00 PM ELECTRICAL PARTS RECONDITIONER Office Visit Transplant Program [address] [place] [address] Ning Leiva MD [address] [place] [address] Scheduled Discharge Disposition: Discharged to home or self care documented as of this encounter Visit Diagnoses Not on filedocumented in this encounter
--- OUTSIDE RECORDS SUMMARY | 2023-12-05 10:37 | XMS_ITS | Encounter Summary ---
Author Organization [facility] Address 1 [facility] [place] [address] Phone Care Team Providers Care Vehicle Damage Appraiser Name Role Phone Unavailable Primary Care Provider Unavailabl e Reason for Referral * Consult/Test/Treat (Routine) - New Request Specialty Diagnoses / Procedures Referred By Amanda t Referred To Contact Infectious Diseases / INFECTIOUS DISEASES Diagnoses Pre-transplant evaluation for ESRD (end stage renal disease) Neva Carbajal MBBS 701 [facility] [address] [place] [address] Referral ID Status Reason Start Date Expiration Date V isits Requested Visits Authorized [id number] New Request 11/22/2023 11/22/2024 1 1 Encounter Details Date Type Department Care Team (Late Contact Info) Description 11/22/2023 Orders Only Transplant Program [address] [place] [address] [address] [place] [address] Chinyere Valencia, OLGA [facility] 701 [place] [address] Pre-transplant evaluation for ESRD (end stage renal [...] Clinic & Specialty Center Cardiology Clinic [address] [address] Denae Mckeon MD 701 [facility] [place] [address] Scheduled Discharge Disposition: Discharged to home or self care 01/01/2024 2:00 PM NET COORDINATOR Office Visit Transplant Program 701 [facility] [address] [place] [address] Ning Leiva MD 701 [facility] [address] [place] [address] Scheduled Discharge Disposition: Discharged to home or [...]
--- OUTSIDE RECORDS SUMMARY | 2023-12-05 10:37 | XMS_ITS | Encounter Summary ---
Author Organization [facility] Address 701 [place] [address] Phone Care Team Providers Care Laborer Wharf Name Role Phone Unavailable Primary Care Provider [...] & Specialty Center Cardiology Clinic [address] [place] [address] Denae Mckeon MD [address] [place] [address] Scheduled Discharge Disposition: Discharged to home or self care 01/01/2024 2:00 PM PERSONNEL COORDINATOR Office Visit Transplant Program [address] [place] [address] Ning Leiva MD [address] [place] [address] Scheduled Discharge Disposition: Discharged to home or self care documented as of this encounter Visit Diagnoses Not on filedocumented in this encounter
--- OUTSIDE RECORDS SUMMARY | 2023-12-05 10:37 | XMS_ITS | Encounter Summary ---
Author Organization [facility] Address [address] [facility] [place] [address] Phone Care Team Providers Care Lining Brusher Name Role Phone Unavailable Primary Care Provider Unavailabl e Reason for Visit * Prior Authorization (Routine) - Closed Specialty Diagnoses / Procedures Referred By Contac t Referred To Contact CARDIOLOGY ECHO LAB Diagnoses Encounter for other preprocedural examination KIDA Echo and EKG. Diagnoses Pre-Transplant Evaluation For Esrd (End Stage Renal Disease) [Z01.818] Procedures TN ECHO TTHRC R-T 2D W/WO M-MODE REST&STRS CONT ECG TN ECG ROUTINE ECG W/LEAST 12 LDS W/I&R TN ECG ROUTINE ECG W/LEAST 12 LDS TRCG ONLY W/O I&R Echo Lab [address] [facility] [address] [place] [address] Referral ID Status Reason Start Date Expiration Date Visits Re quested Visits Authorized [id number] Closed 2 2 Encounter Details Date Type Department Care Team (Latest Contact Info) Description 11/20/2023 9:57 AM CDT - 11/20/2023 11:59 PM CDT Hospital [facility] [address] [facility] [address] [place], [place] [address] Blayne Quiroz MD [address] [facility] [address] [place] [address] Senior Quality Control Inspector, Ekg [address] [place] [address] Discharge Disposition: Discharged to home or self [...] & Specialty Center Cardiology Clinic [address] [place] [address] Denae Mckeon MD [address] [place], [place] [id number] Scheduled Discharge Disposition: Discharged to home or self care 01/01/2024 2:00 PM RESOURCE SPECIALIST TEACHER Office Visit Transplant Program [address] [place] [address] Ning Leiva MD [address] [address] Scheduled Discharge Disposition: Discharged to home or self care documented as of this encounter Procedures Procedure Name Priority Date/Time Associated Diagnosis Comments EKG ADULT (12-LEAD) Routine 11/20/2023 1 0:46 AM CDT Pre-transplant evaluation for ESRD (end stage renal disease) documented in this encounter Results * EKG ADULT (12-LEAD) (11/20/2023 10:46 AM CDT) 11/20/2023 10:4 6 AM CDT Impressions [facility] CVIS EKG ORDERS - 11/20/2023 10:46 AM CDT SINUS RHYTHM NORMAL ECG No previous ECG available for comparison. P-R Interval 174 ms QRS Interval 93 ms QT Interval 367 ms QTC Interval 409 ms P Jasper 46 QRS Jasper 61 T Wave Jasper 68 Narrative Procedure Note Jean Liu MD - 11/20/2023 IMPRESSION SINUS RHYTHM NORMAL ECG No previous ECG available for comparison. P-R Interval 174 ms QRS Interval 93 ms QT Interval 367 ms QTC Interval 409 ms P Jasper 46 QRS Jasper 61 T Wave Jasper 68 Blayne Quiroz MD EKG [facility] CVIS EKG ORDERS documented in this encounter Visit Diagnoses Diagnosis Pre-transplant evaluation for ESRD (end stage renal disease) Other specified pre-operative examination documented in this encounter
--- OUTSIDE RECORDS SUMMARY | 2023-12-05 10:37 | XMS_ITS | Encounter Summary ---
Author Organization [facility] Address [address] [place] [address] Phone Care Team Providers Care Service Porter Name Role Phone Unavailable Primary Care Provider Unavailabl e Encounter Details Date Type Department Care Team (Late Contact Info) Description 11/01/2023 Documentation Only Transplant Program [address] [place] [address] Williams Lindquist Transplant Hi Lift Operator [address] [place], [place] [address] Social History Tobacco Use Types Packs/Day Years Used Date Smoking Tobacco: Never Assessed Sex and Gender Information Value Date Recorded Sex Assigned at Not on file Gender Identity Not on file Sexual Orientation Not on file documented as of this encounter Progress Notes * Williams Lindquist Transplant Hi Lift Operator - 11/01/2023 1:48 PM CDT D/A: The following secure email was sent to Rin, patient's bee worker. Lopez Gar, Sorry to bother you, but I'm wondering if you have received the [facility] approved renewed ESRD Care Planon Maco Stein? He has transplant evaluation appointments scheduled and I'm afraid we'll have to cancel them if we don't have a current Care Plan in place. Thanks for your help, Williams Hui: Response pending. Brenna Lindquist Transplant Hi Lift Operator, October 13:49 documented in this encounter Plan of Treatment Upcoming Encounters Date Type Department Care Team (Late st Contact Info) Description 12/18/2023 11:00 AM CDT Office Visit Clinic & Specialty Center Cardiology Clinic [address] [place] [address] Denae Mckeon MD [address] [place] [address] Scheduled Discharge Disposition: Discharged to home or self care 01/01/2024 2:00 PM GREASE PACKER Office Visit Transplant Program [address] [facility] [address] [place] [address] Ning Leiva MD [address] [place], [place] [address] Scheduled Discharge Disposition: Discharged to home or self care documented as of this encounter Visit Diagnoses Not on filedocumented in this encounter
--- OUTSIDE RECORDS SUMMARY | 2023-12-05 10:37 | XMS_ITS ---
Author Organization [facility] Address [address] [place] [address] Phone Care Team Providers Care Locksmith Helper Name Role Phone Unavailable Primary Care Provider Unavailabl e Transplant Episode Kidney Candidate [facility], [place] - [facility] Evaluation began on 11/20/2023 Marked as Active on 11/20/2023 Kidney CoordinatorChinyere Valencia RN Phone: N/A Fax: N/A Email: N/A Care Team Name Role Phone Fax Email Chinyere Valencia RN Kidney Coordinator N/A N/A N/A Jean Ochoa DO [facility] Info Surgeon [phone] N/A Julito Cortez MD Back Hand Referring Back Hand Referring Provider [phone] N/A Kidney Spec [facility] Referring Nephrology Group [facility] Nephrology Group N/A N/A N/A Chinyere Valencia RN TXP Pre Coordinator N/A N/A N/A Events Pre-Transplant Referred: 05/11/2023 Evaluation began: 11/20/2023 Committee: 07/20/2023 Appointments (11/05/2023 - 01/05/2024) When With Description 11/20/2023 Transplant - Kamala Simental Chronic kidne y disease (Primary Dx) 11/20/2023 Transplant - Stacia Goode Encount er for pre-transplant evaluation for kidney transplant (Primary Dx) 01/01/2024 Transplant - Jessi Leiva Sche duled Dialysis History Dialysis History Start End Type Comments Center Home Hemodialysis [facility] D[facility] Information Center Phone Fax Address [facility] [phone] [address] [facility] [address]
--- OUTSIDE RECORDS SUMMARY | 2023-12-05 10:37 | XMS_ITS | Referral Summary ---
Author Organization [facility] Address [address] [place] [address] Phone Care Team Providers Care Production Floater Name Role Phone Unavailable Primary Care Provider Unavailabl e Source Comments Filtr8 is fully rolled out on [employer]. Last update 07/31/08.NPR Encounters Date Type Department Care Team Description 11/22/2023 Orders Only Transplant Program [address] [place] [address] Chinyere Valencia, OLGA LIDIA Pre-transplant evaluation for ESRD (end stage renal disease) (Primary Dx) 11/21/2023 Abstract Transplant Program [address] [place] [address] Chinyere Valencia RN 11/20/2023 9:57 AM CDT - 11/20/2023 11:59 PM CDT Hospital Encounter [facility] EKG [address] [place] [address] Blayne Quiroz MD Assistant Program Manager, Ekg Discharge Disposition: Discharged to home or self care 11/20/2023 Travel 11/20/2023 2:30 PM CDT Nurse Only Transplant Program [address] [place] [address] Neva Carbajal MBBS Rn, [facility]-Pre Recipient Chronic kidney disease (Primary Dx) Discharge Disposition: Discharged to home or self care 11/20/2023 1:30 PM CDT Office Visit Transplant Program [address] [place] [address] Neva Carbajal MBBS Gjesvold, Donna E, RD, LD Encounter for pre-transplant evaluation for kidney transplant (Primary Dx) Discharge Disposition: Discharged to home or self care 11/20/2023 12:29 PM CDT - 11/20/2023 11:59 PM CDT Hospital Encounter [facility] XRAY [address] [place] [address] Blayne Quiroz MD Discharge Disposition: Discharged to home or self care 11/20/2023 12:08 PM CDT - 11/20/2023 11:59 PM CDT Hospital Encounter [facility] CT [address] [place] [address] Blayne Quiroz MD Discharge Disposition: Discharged to home or self care 11/20/2023 9:55 AM CDT - 11/20/2023 11:59 PM CDT Hospital Encounter [facility] Echo Lab [address] [place] [address] Blayne Quiroz MD Alvarado, Michelle, JOB SERVICE SPECIALIST Jerel Pena, telegraph repeater mechanic Disposition: Discharged to home or self care 11/01/2023 Documentation Only Transplant Program [address] [place] [address] Williams Lindquist Transplant Metal Reclamation Kettle Tender 10/03/2023 Documentation Only Transplant Program [address] [place] [address] Williams Lindquist Transplant Metal Reclamation Kettle Tender 09/26/2023 Abstract Transplant Program [address] [place] [address] Williams Lindquist Transplant Metal Reclamation Kettle Tender from Last 3 Months Allergies Active Allergy [...] to chronic kidney disease, on chronic dialysis ([facility]) 10/13/2022 Anxiety 10/13/2022 HTN (hypertension) 09/15/2022 Diabetes mellitus ([facility]) 01/27/2002 Social History Tobacco Use Types [...] & Specialty Center Cardiology Clinic [address] [address] Denae Mckeon MD 701 [facility] [address] [place] [address] Scheduled Discharge Disposition: Discharged to home or self care 01/01/2024 2:00 PM COMMANDING OFFICER GARAGE Office Visit Transplant Program [address] [facility] [address] [place] [address] Ning Leiva MD 701 [facility] [address] [place], [place] [address] Scheduled Discharge Disposition: Discharged to home or [...] Donor, Chagas Screen Non Reactive Non Reactive [employer] [facility] [employer] Blood 11/20/2023 1:20 PM CDT 11/23/2023 11:23 AM CDT [facility] [employer] [address] [place] [address] * COCCIDIOIDES AB SCREEN WITH REFLEX (11/20/2023 1:20 PM CDT) Pathologist [facility] Coccidioides Antibody Negative Negative [facility] Comment: Repeat testing on a new sample in 2-3 weeks if clinically indicated. ADDITIONAL INFORMATION This test has been modified from the jewelry jobber's instructions. Its performance characteristics were determined by [facility] in a manner consistent with CLIA requirements. This test has not been cleared or approved by the U.S. Food and Drug Administration. Test Performed by: [facility] [address] [place] [address] Radiological Defense Officer: Sawyer Alejandre Ph.D.; CLIA# [id number] Serum 11/20/2023 1:20 PM CDT 11/20/2023 2:24 PM CDT Narrative [facility] - 11/21/2023 8:16 PM CDT Bill to Corporate Kidney Acquisition Account [facility] [address] [place] [address] * (ABNORMAL) QUANTIFERON-TB GOLD PLUS (11/20/2023 1:20 PM CDT) QuantiFERON TB Gold Plus Positive( A) Negative [facility] LAB QFT TB 1 0.19 [facility] LAB QFT TB 2 0.35 [facility] QFT TB MITOGEN 9.94 [facility] QFT NIL 0.06 [facility] Blood 11/20/2023 1:20 PM CDT 11/22/2023 7:34 AM CDT Narrative [facility] LAB - 11/22/2023 10:36 AM CDT Bill to Corporate Kidney Acquisition ??Account [facility] Performing Organization Address City/[facility]/ZIP Co de Phone Number [facility] LAB [address] [address] * HIV COMBO (11/20/2023 1:20 PM CDT) Pathologist [facility] HIV Antigen-Antibody Nonreactive Nonreactive [facility] Comment:Performance characte ristics have not been established with this test on patients less than 2 years of age. Blood 11/20/2023 1:20 PM CDT 11/20/2023 2:24 PM CDT Narrative [facility] - 11/20/2023 3:20 PM CDT Bill to Corporate Kidney Acquisition Account [facility] LAB [address] [address] * HEPATITIS B CORE TOTAL THEE (11/20/2023 1:20 PM CDT) Pathologist [facility] HBV Core Total Thee Nonreactive Nonreactive [facility] Blood 11/20/2023 1:20 PM CDT 11/20/2023 3:41 PM CDT Narrative [facility] - 11/20/2023 4:11 PM CDT Bill to Corporate Kidney Acquisition Account [facility] [address] [address] * (ABNORMAL) CBC WITH PLTS/AUTO DIFF (11/20/2023 1:20 PM CDT) [facility] WBC 4.75 4.00 - 10.00 k/cmm [facility] RBC 2.54(L) 4.60 - 6.00 m/cmm [facility] Hgb 8.4(L) 13.1 - 17.5 g/dL [facility] Hematocrit 24.7(L) 40.0 - 51.0 % [facility] MCV 97.2 80.0 - 100.0 fL [facility] MCH 33.1(H) 25.0 - 32.0 pg [facility] MCHC 34.0 31.0 - 36.0 g/dL [facility] RDW 14.5 11.5 - 14.5 % [facility] Plt 92(L) 150 - 400 k/cmm [facility] MPV 11.6 6.5 - 12.5 fL [facility] Automated Abs Neutrophil 3.10 1.70 - 6.50 k/cmm [facility] Comment:Preliminary ANC, Fin al Result to Follow Abs Immature Granulocyte 0.01 0.00 - 0.09 k/cmm [facility] Comment:The Immature Granulo cyte Absolute count contains metamyelocytes and myelocytes. Abs Neutrophil 3.10 1.70 - 6.50 k/cmm [facility] Abs Lymphocyte 1.09 0.80 - 4.00 k/cmm [facility] Abs Monocyte 0.41 0.20 - 1.00 k/cmm [facility] Abs Eosinophil 0.13 0.00 - 0.60 k/cmm [facility] Abs Basophil 0.01 0.00 - 0.20 k/cmm [facility] Blood 11/20/2023 1:20 PM CDT 11/20/2023 2:24 PM CDT Narrative [facility] - 11/20/2023 2:35 PM CDT Bill to Corporate Kidney Acquisition ??Account [facility] Performing Organization Address City/[facility]/ZIP Co de Phone Number [facility] [address] [address] * VARICELLA-ZOSTER VIRUS (VZV) ANTIBODY, IGG (11/20/2023 1:20 PM CDT) VZV Ab, IgG Positive [facility] Comment:Positive results ind icate current or past exposure to Varicella-Zoster virus or prior immunization. Blood 11/20/2023 1:20 PM CDT 11/20/2023 2:24 PM CDT Narrative [facility] - 11/21/2023 9:03 AM CDT Bill to Corporate Kidney Acquisition ??Account [facility] Performing Organization Address [facility] Co de Phone Number [facility] [address] [address] * MEASLES VIRUS (RUBEOLA) ANTIBODY, IGG (11/20/2023 1:20 PM CDT) Measles Ab, IgG Index 116.00 AU/ml [facility] Measles Ab, IgG Positive [facility] Comment:Positive results (>= 16.5) indicate current or past exposure to Measles virus or prior immunization. Blood 11/20/2023 1:20 PM CDT 11/20/2023 2:24 PM CDT Narrative [facility] - 11/21/2023 9:03 AM CDT Bill to Corporate Kidney Acquisition ??Account [facility] [address] [address] * RPR SYPHILIS SCREEN (11/20/2023 1:20 PM CDT) RPR Screen Non-Reactive Non-Reacti ve [facility] RPR Titer Not Reflexed [facility] Blood 11/20/2023 1:20 PM CDT 11/21/2023 10:14 AM CDT Narrative [facility] - 11/21/2023 11:32 AM CDT Bill to Corporate Kidney Acquisition ??Account [facility] [address] [address] * PROTHROMBIN (PT) & INR (11/20/2023 1:20 PM CDT) PT 11.6 9.0 - 12.5 sec [facility] INR 1.0 0.8 - 1.1 [facility] Comment: Warfarin Therapeutic Range: Standard Intensity: 2.0 - 3.0 High Intensity: 2.5 - 3.5 Blood 11/20/2023 1:20 PM CDT 11/20/2023 2:25 PM CDT Narrative [facility] - 11/20/2023 2:54 PM CDT Bill to Corporate Kidney Acquisition Account [facility] Performing Organization Address [facility] Co de Phone Number [facility] [address] [address] * PHOSPHORUS (11/20/2023 1:20 PM CDT) Phosphorus 3.6 2.5 - 4.5 mg/dL [facility] Blood 11/20/2023 1:20 PM CDT 11/20/2023 2:24 PM CDT Narrative [facility] - 11/20/2023 2:49 PM CDT Bill to Corporate Kidney Acquisition ??Account [facility] Performing Organization Address City/[facility]/ZIP Co de Phone Number [facility] [address] [address] * HEPATITIS C ANTIBODY (11/20/2023 1:20 PM CDT) Hep C Thee Nonreactive Nonreactive [facility] Comment:Performance characte ristics have not been established with this test on patients less than 10 years of age. Blood 11/20/2023 1:20 PM CDT 11/20/2023 2:24 PM CDT Narrative [facility] - 11/20/2023 3:19 PM CDT Bill to Corporate Kidney Acquisition ??Account [facility] Performing Organization Address City/[facility]/ZIP Co de Phone Number [facility] [address] [address] * HEPATITIS B SURFACE ANTIGEN (11/20/2023 1:20 PM CDT) HBV Surface Ag Nonreactive Nonreactive [facility] Comment: Testing performed at: [facility] Lab [address] [address] Blood 11/20/2023 1:20 PM CDT 11/20/2023 2:24 PM CDT Narrative [facility] - 11/20/2023 3:19 PM CDT Bill to Corporate Kidney Acquisition ??Account [facility] Performing Organization Address City/[facility]/ZIP Co de Phone Number [address] [address] * HEPATITIS B SURFACE ANTIBODY (11/20/2023 1:20 PM CDT) HBsAb Quant 83.42 mIU/ml [facility] Comment: The Hepatitis B Surface Antibody quantitation is greater than or equal to 12.00 mIU/mL. This patient has either had an antibody response to a hepatitis B vaccination, received a transfusion or has recovered from a hepatitis B infection. This patient should be considered immune to hepatitis B. HBsAb Interpretation Reactive [facility] Blood 11/20/2023 1:20 PM CDT 11/20/2023 2:24 PM CDT Narrative [facility] - 11/20/2023 3:19 PM CDT Bill to Corporate Kidney Acquisition ??Account Nevauziel Jangmeenu [facility] Performing Organization Address City/[facility] Co de Phone Number [facility] [address] [address] * GGT (11/20/2023 1:20 PM CDT) [facility] GGT 13 10 - 71 IU/L [facility] Blood 11/20/2023 1:20 PM CDT 11/20/2023 2:24 PM CDT Narrative [facility] - 11/20/2023 2:49 PM CDT Bill to Corporate Kidney Acquisition ??Account Nevauziel Carbajal [facility] Performing Organization Address [facility] de Phone Number [facility] [address] [address] * (ABNORMAL) EBV VCA IGG (11/20/2023 1:20 PM CDT) [facility] EBV Ab VCA IGG >750.0(H) 0.0 - 21.9 U/mL [facility] Comment: INTERPRETIVE INFORMATION: Parveen-Monsalve Virus Antibody to ?Viral Capsid Antigen, IgG ??17.9 U/mL or less.......Not Detected ??18.0-21.9 U/mL..........Indeterminate - Repeat testing in ?10-14 days may be helpful. ??22.0 U/mL or greater....Detected Performed By: [facility] [address] [place] [address] Bearing Inspector: Salinas Prajapati MD, PhD CLIA Number: [id number] PARVEEN-MONSALVE VIRUS ANTIBODY TO VIRAL CAPSID ANTIGEN IGG REFERENCE INTERVAL: EFFECTIVE 10/11/09 NEGATIVE: ??17.9 U/ML OR LESS EQUIVOCAL: 18.0 - 21.9 U/ML POSITIVE: ??22.0 U/ML OR GREATER Serum 11/20/2023 1:20 PM CDT 11/20/2023 2:24 PM CDT Narrative [facility] - 11/21/2023 7:21 PM CDT Bill to Corporate Kidney Acquisition ??Account [facility] [address] [place] [address], * CALCIUM, TOTAL (11/20/2023 1:20 PM CDT) Calcium 8.6 8.6 - 10.0 mg/dL [facility] Blood 11/20/2023 1:20 PM CDT 11/20/2023 2:24 PM CDT Narrative [facility] - 11/20/2023 2:49 PM CDT Bill to Corporate Kidney Acquisition ??Account [facility] Performing Organization Address City/[facility]/ZIP Co de Phone Number [facility] [address] [address] * BILIRUBIN, TOTAL (ONLY) (11/20/2023 1:20 PM CDT) Bili Total 0.5 <=1.2 mg/dL [facility] Blood 11/20/2023 1:20 PM CDT 11/20/2023 2:24 PM CDT Narrative [facility] - 11/20/2023 2:49 PM CDT Bill to Corporate Kidney Acquisition ??Account [facility] Performing Organization Address City/[facility]/ZIP Co de Phone Number [facility] [address] [address] * AST (SGOT) (11/20/2023 1:20 PM CDT) AST(SGOT) 15 5 - 40 IU/L [facility] Blood 11/20/2023 1:20 PM CDT 11/20/2023 2:24 PM CDT Narrative [facility] - 11/20/2023 2:49 PM CDT Bill to Corporate Kidney Acquisition ??Account [facility] [address] [address] * PTT (APTT) (11/20/2023 1:20 PM CDT) APTT 33.4 25.0 - 37.0 sec [facility] Blood 11/20/2023 1:20 PM CDT 11/20/2023 2:25 PM CDT Narrative [facility] - 11/20/2023 2:54 PM CDT Bill to Corporate Kidney Acquisition Account [facility] Performing Organization Address City/[facility]/ZIP Co de Phone Number [facility] [address] [address] * ALT (SGPT) (11/20/2023 1:20 PM CDT) ALT (SGPT) 9 <=41 IU/L [facility] Blood 11/20/2023 1:20 PM CDT 11/20/2023 2:24 PM CDT Narrative [facility] - 11/20/2023 2:49 PM CDT Bill to Corporate Kidney Acquisition ??Account [facility]a [facility] Performing Organization Address City/[facility]/ZIP Co de Phone Number [facility] [address] [address] * ALKALINE PHOSPHATASE (11/20/2023 1:20 PM CDT) Alk Phos 118 40 - 129 IU/L [facility] Comment:No reference range e stablished for patients <18 years old. Blood 11/20/2023 1:20 PM CDT 11/20/2023 2:24 PM CDT Narrative [facility] - 11/20/2023 2:49 PM CDT Bill to Corporate Kidney Acquisition ??Account Neva Carbajal [facility] Performing Organization Address City/[facility]/ZIP Co de Phone Number [facility] [address] [address] * ALBUMIN (11/20/2023 1:20 PM CDT) Albumin 4.3 3.8 - 5.1 g/dL [facility] Blood 11/20/2023 1:20 PM CDT 11/20/2023 2:24 PM CDT Narrative [facility] - 11/20/2023 2:49 PM CDT Bill to Corporate Kidney Acquisition ??Account [facility] Performing Organization Address City/[facility] Co de Phone Number [facility] [address] [address] * BLOOD TYPING-ABO/RH (11/20/2023 1:20 PM CDT) ABORHG O POS [facility] Blood 11/20/2023 1:20 PM CDT 11/20/2023 2:29 PM CDT Narrative [facility] - 11/20/2023 3:06 PM CDT Bill to Corporate Kidney Acquisition ??Account Neva Carbajal [facility] TRANSFUSION SER VICES Performing Organization Address [facility] Co de Phone Number [facility] [address] [address] * XR CHEST 2 VIEWS PA + [...] Blayne Quiroz MD RAD CT BODY * [facility] EXERCISE STRESS ECHO COMPLETE WITH CONTRAST (11/20/2023 [...] ? 67.01 Inches MACO Patient Number ?? [id number] ?Weight ? 205 Pounds Date of ?1980 ? BSA ?2.04 m^2 Age ?43 ? Tape Number: Gender ? Male ? Study Date ? 11/20/2023 10:51 AM Senior Javascript Developer ?MA ? Ordering Provider ??CORBY CARUSO Referring ? Interpreting ? Hue Flynn MD Physician ? Physician ?[id number] Type of Study: Stress procedure: ECH EXERCISE [...] HR: 176 bpm ? HR BP Product: 56062 % of predicted HR: 62 ? Max [...] VINAY Height 67.01 Inches MACO Patient Number [id number] Weight 205 Pounds Date of 1980 BSA 2.04 m^2 Age 43 Tape Number: Gender Male Study Date 11/20/2023 10:51 AM Senior Javascript Developer [place] Ordering Provider CORBY CARUSO Referring Interpreting Hue Flynn MD Physician Physician [id number] Type of Study: Stress procedure: ECH EXERCISE STRESS ECHO, Color Doppler, Spectral Doppler HR: 84 bpmBP: 184/80 mmHg Patient Status: RoutineTechnical Quality: Adequate visualization Study Location: [facility] Medium: [facility]. Amount- 0.77 ml Indications Indications for Study: [...] Predicted HR: 176 bpm HR BP Product: 67078 % of predicted HR: 62 Max Exercise: [...] improved withstress. Blayne Quiroz MD RAD ECHO [facility] HEARTLAB * EKG ADULT (12-LEAD) (11/20/2023 10:46 AM CDT) 11/20/2023 10:4 6 AM CDT Impressions [facility] CVIS EKG ORDERS - 11/20/2023 10:46 AM CDT SINUS RHYTHM NORMAL ECG No previous ECG available for comparison. P-R Interval 174 ms QRS Interval 93 ms QT Interval 367 ms QTC Interval 409 ms P [place] 46 QRS [place] 61 T Wave [place]en 68 Narrative Procedure Note Jean Liu MD - 11/20/2023 IMPRESSION SINUS RHYTHM NORMAL ECG No previous ECG available for comparison. P-R Interval 174 ms QRS Interval 93 ms QT Interval 367 ms QTC Interval 409 ms P [place] 46 QRS [place] 61 T Wave [place] 68 Blayne Quiroz MD EKG [facility] CVIS EKG ORDERS from Last 3 Months CORPORATE,KIDNEY ACQUISITION COST-CURRENT NEW Corporate Other 05/26/2020 Attn Williams Lindquist [facility] [address] [place] [address]
--- OUTSIDE RECORDS SUMMARY | 2023-12-05 10:37 | XMS_ITS | Encounter Summary ---
Author Organization [facility] Address [address] [place] [address] Phone Care Team Providers Care Club Room Attendant Name Role Phone Unavailable Primary Care Provider Unavailabl e Encounter Details Date Type Department Care Team (Latest Contact Info) Description 11/20/2023 12:29 PM CDT - 11/20/2023 11:59 PM CDT Hospital Encounter [facility] XRAY [address] [place], [place] [id number] Blayne Quiroz MD [address] [phone] Discharge Disposition: Discharged to home or self [...] [facility]ty [facility] Cardiology Clinic [address] [address] Denae Mckeon MD 701 [facility] [address] [place] [address] Scheduled Discharge Disposition: Discharged to home or self care 01/01/2024 2:00 PM INSULATION INSTALLER Office Visit Transplant Program 701 [facility] [address] [place] [address] Ning Leiva MD 701 [facility] [address] [place] [address] Scheduled Discharge Disposition: Discharged to home or [...]
--- OUTSIDE RECORDS SUMMARY | 2023-12-05 10:37 | XMS_ITS | Encounter Summary ---
Author Organization [facility] Address [address] [place] [address] Phone Care Team Providers Care Television Mechanic Name Role Phone Unavailable Primary Care Provider Unavailabl e Encounter Details Date Type Department Care Team (Late st Contact Info) Description 11/21/2023 Abstract Transplant Program [address] [place] [address] [address] [place] [address] Chinyere Valencia RN [facility] [address] [place] [address] Social History Tobacco Use Types Packs/Day Years [...] [facility] Card[facility] Clinic [address] [address] Denae Mckeon MD [address] [place] [address] [address]5 [place] [address] Scheduled Discharge Disposition: Discharged to home or self care 01/01/2024 2:00 PM MALLET CUTTER Office Visit Transplant Program [address] [place] [address] [address] [place] [address] Ning Leiva MD [address] [facility] [address] [place] [address] Scheduled Discharge Disposition: Discharged to home or self care documented as of this encounter Visit Diagnoses Not on filedocumented in this encounter
--- OUTSIDE RECORDS SUMMARY | 2023-12-05 10:38 | XMS_ITS | Clinical Summary ---
Author Organization [facility] Address [address] [facility] [address] [place] [address] Care Team Providers Care Health Inspector Name Role Phone No, Pcp Primary Care Provider [phone] Active Problems Problem Noted Date Diagnosed Date End stage renal disease 11/23/2023 Dependence on renal dialysis 11/23/2023 Type 2 diabetes mellitus 11/23/2023 Encounters Date Type Department Care Team Description 12/02/2023 Orders Only [facility] [address] [facility] [address] [place] [address] Julito Cortez MD 11/22/2023 Orders Only [facility] [address] [facility] [address] [place] [address] Julito Cortez MD 11/22/2023 Treatment [facility] [address] [place] [address] Julito Cortez MD 11/08/2023 Orders Only [facility] [address] [address] Julito Cortez MD 11/03/2023 Orders Only [facility] [address] [address] Julito Cortez MD 09/27/2023 Orders Only [facility] [address] [facility] [address] [place] [address] Julito Cortez MD 09/26/2023 [facility] [address] [place] [phone] Julito Cortez MD 09/10/2023 Orders Only [facility] [place] [address] [...] Date/Time Associated Diagnosis Comments HD KINETICS Routine 12/02/2023 CHEMISTRY Routine 12/02/2023 CHEMISTRY Routine 12/02/2023 POST CHEMISTRY Routine 12/02/2023 HEMATOLOGY Routine 12/02/2023 CHEMISTRY Routine 11/22/2023 CHEMISTRY Routine 11/08/2023 [facility] RESULTS Routine 11/03/2023 HEMATOLOGY Routine 11/03/2023 HD KINETICS Routine 11/03/2023 POST CHEMISTRY Routine 11/03/2023 CHEMISTRY Routine 11/03/2023 CHEMISTRY Routine 11/03/2023 [facility] RESULTS Routine 09/27/2023 HEMATOLOGY Routine 09/27/2023 HD KINETICS Routine 09/27/2023 POST CHEMISTRY Routine 09/27/2023 CHEMISTRY Routine 09/27/2023 CHEMISTRY Routine 09/27/2023 CHEMISTRY Routine 09/10/2023 from Last 3 Months Results * (ABNORMAL) HD KINETICS (12/02/2023) Only the most recent of3 resultswithin the time period is included. % Urea Reduction 52(L) 65 - 80 % [facility] 12/02/2023 12/04/2023 10: 54 AM CDT Narrative [facility] - 12/04/2023 Unless otherwise specified, test(s) performed at: [facility], [address] [place] [address], [place] [address] ELECTRIC METER INSTALLER: Gurdeep Ricardo M.D., Ph.D For any questions, please call customer service at FREQUENCY:MONTHLY Resulting Agency Comment Specimen source: Plasma Julito Cortez MD LAB BLOOD ORDERABLES [facility] See order comments or contact performing lab Unknown, [place] * (ABNORMAL) POST CHEMISTRY (12/02/2023) Only the most recent of3 resultswithin the time period is included. BUN Post Dialysis 20(H) 6 - 19 mg/dL [facility] 12/02/2023 12/04/2023 10: 54 AM CDT Narrative [facility] - 12/04/2023 Unless otherwise specified, test(s) performed at: [facility], [address] [place] [address], [place] [address] ELECTRIC METER INSTALLER: Gurdeep Ricardo M.D., Ph.D For any questions, please call customer service at FREQUENCY:MONTHLY Resulting Agency Comment Specimen source: Plasma Julito Cortez MD LAB BLOOD ORDERABLES [facility] See order comments or contact performing lab Unknown, [place] * (ABNORMAL) HEMATOLOGY (12/02/2023) Only the most recent of3 resultswithin the time period is included. Neutrophils 67.1 40.0 - 75.0 % [facility] Lymphocytes Relative 19.9 19.0 - 48.0 % [facility] Monocytes 7.5 3.0 - 10.0 % [facility] Eosinophils Relative 2.1 0.0 - 7.0 % [facility] Basophils Relative 0.2 0.0 - 1.5 % [facility] [place] 3.2 0.0 - 4.0 % [facility] WBC 5.08 4.80 - 10.80 1000/mcL [facility] RBC 2.40(L) 4.70 - 6.10 mill/mcL [facility] Hematocrit 23.5(L) 42.0 - 52.0 % [facility] MCV 98 80 - 100 fl [facility] MCH 32.3(H) 27.0 - 31.0 pg [facility] MCHC 33.0 30.0 - 36.0 g/dL [facility] RDW 14.9(H) 11.5 - 14.5 % [facility] Hemoglobin 7.8(L) 14.0 - 18.0 g/dL [facility] Hemoglobin x 3 23.4(L) 42.0 - 54.0 % [facility] Reticulocyte Hemoglobin 31.3 25.4 - 31.8 pg [facility] 12/02/2023 12/04/2023 10: 16 AM CDT Narrative [facility] - 12/04/2023 Unless otherwise specified, test(s) performed at: [facility], [address] [place] [address], [place] [address] ELECTRIC METER INSTALLER: Gurdeep Ricardo M.D., Ph.D For any questions, please call customer service at FREQUENCY:MONTHLY Resulting Agency Comment Specimen source: Blood Julito Cortez MD LAB BLOOD ORDERABLES [facility] See order comments or contact performing lab Unknown, [place] * (ABNORMAL) [facility] Chemistry (12/02/2023) Only the most recent of9 resultswithin the time period is included. BUN 42(H) 6 - 19 mg/dL [facility] Sodium 135(L) 136 - 145 mEq/L [facility] Chloride 96 96 - 108 mEq/L [facility] Bicarbonate (CO2) 30 20 - 31 mEq/L [facility] Calcium 8.8 8.7 - 10.4 mg/dL [facility] Comment: Please note change in reference range. Corrected Calcium 8.9 8.7 - 10.4 mg/dL [facility] Comment: Corrected Calcium is not equivalent to measured Ionized Calcium. Phosphorus 5.0(H) 2.6 - 4.5 mg/dL [facility] Calcium Phosphorus Product 44 0 - 54 [facility] Calcium Phosporus Product, Cor 45 0 - 54 [facility] Alkaline Phosphatase 83 40 - 129 U/L [facility] Albumin 3.9 3.5 - 5.2 g/dL [facility] Magnesium 2.7(H) 1.6 - 2.6 mg/dL [facility] Ferritin 1,457(H) 22 - 322 ng/mL [facility] TIBC 200 185 - 515 mcg/dL [facility] Creatinine 7.24(H) 0.60 - 1.30 mg/dL [facility] BUN/Creatinine Ratio 5.8(L) 10.0 - 20.0 [facility] 12/02/2023 12/04/2023 9:3 8 AM CDT Narrative [facility] - 12/05/2023 Unless otherwise specified, test(s) performed at: [facility], [address] [place] [address], [place] [address] ELECTRIC METER INSTALLER: Gurdeep Ricardo M.D., Ph.D For any questions, please call customer service at FREQUENCY:MONTHLY Resulting Agency Comment Specimen source: Serum Julito Cortez MD LAB BLOOD ORDERABLES [facility] See order comments or contact performing lab Unknown, [place] * [facility] Results (11/03/2023) Only the most recent of2 resultswithin the time period is included. Simple KT/V (HHD and NXSTAGE) 0.65 [facility] SPKT/V DAUGIRDAS II (HHD & NXSTAGE) 0.81 [facility] WSTDKT/V 2.6 [facility] 11/03/2023 11/03/2023 Ordering Provider LAB BLOOD ORDERABLE S [facility] Contact Performing lab Unknown, [place] from Last 3 Months Care Teams Health Inspector Relationship Specialty Start Date End Date No, Pcp PCP - General Internal Medicine 09/10/23
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
--- OUTSIDE RECORDS SUMMARY | 2023-12-05 10:38 | XMS_ITS | Encounter Summary ---
Author Organization [facility] Address [address] [facility] [address] [facility] [address] [place] [address] Care Team Providers Care Supervisor Electronics Inspection Name Role Phone Unavailable Primary Care Provider Unavailabl e Encounter Details Date Type Department Care Team (Late st Contact Info) Description 08/31/2023 Orders Only [facility] [place] [address] [place] [address] Julito Cortez MD [address] [place] [address] Social History Tobacco Use Types [...] (08/31/2023) Simple KT/V (HHD and NXSTAGE) 0.76 [facility] SPKT/V DAUGIRDAS II (HHD & NXSTAGE) 0.81 [facility] WSTDKT/V 2.0 [facility] 08/31/2023 08/31/2023 Shireen Ordering Provider LAB BLOOD ORDERABLE S [facility] Contact Performing lab Unknown, [place] * TRACE [employer]LEMENTS (08/31/2023) Aluminum 5 0 - 10 mcg/L [facility] Comment: This test was developed and its performance characteristics determined by [facility]. It has not been cleared or approved by the FDA. The laboratory is regulated under CLIA as qualified to perform high complexity testing. This test is used for clinical purposes. It should not be regarded as investigational or for research. 08/31/2023 09/01/2023 10: 06 AM CDT Narrative [facility] - 09/01/2023 Unless otherwise specified, test(s) performed at: [facility], [address] [place] [address], [place] [address] FOREMAN OR SUPERVISOR AND OPERATOR: Gurdeep Ricardo M.D., Ph.D For any questions, please call customer service at FREQUENCY:MONTHLY Resulting Agency Comment Specimen source: Serum Julito Cortez MD LAB BLOOD ORDERABLES [facility] See order comments or contact performing [...] 08/31/2023 09/01/2023 11: 28 AM CDT Narrative [facility] - 09/01/2023 Unless otherwise specified, test(s) performed at: [facility], [address] [place] [address] FOREMAN OR SUPERVISOR AND OPERATOR: Gurdeep Ricardo M.D., Ph.D For any questions, please call customer service at FREQUENCY:MONTHLY Resulting Agency Comment Specimen source: Blood Julito Cortez MD LAB BLOOD ORDERABLES Performing Organization Address [facility] de Phone Number [facility] dVisit [facility] See order comments or contact performing lab Unknown, [place] * (ABNORMAL) [facility] (08/31/2023) PTH 102(H) 16 - 80 pg/mL [facility] 08/31/2023 09/01/2023 10: 43 AM CDT Narrative [facility] - 09/01/2023 Unless otherwise specified, test(s) performed at: [facility], [address] [place] [address], [place] [address] FOREMAN OR SUPERVISOR AND OPERATOR: Gurdeep Ricardo M.D., Ph.D For any questions, please call customer service at FREQUENCY:MONTHLY Resulting Agency Comment Specimen source: Plasma Julito Cortez MD LAB BLOOD ORDERABLES Performing Organization Address [facility]/ZIP Co de Phone Number [facility] See order comments or contact performing lab Unknown, [place] * (ABNORMAL) HD KINETICS (08/31/2023) Pathologist [facility] % Urea Reduction 53(L) 65 - 80 % [facility] 08/31/2023 09/01/2023 10: 34 AM CDT Narrative Resulting Agency Comment Specimen source: Plasma Julito Cortez MD LAB BLOOD ORDERABLES Performing Organization Address [facility] de Phone Number [facility] See order comments or contact performing lab Unknown, [place] * (ABNORMAL) POST CHEMISTRY (08/31/2023) [facility] BUN Post Dialysis 20(H) 6 - 19 mg/dL [facility] 08/31/2023 09/01/2023 10: 34 AM CDT Narrative [facility] - 09/01/2023 Unless otherwise specified, test(s) performed at: [facility], [address] [place] [address], [place] [address] FOREMAN OR SUPERVISOR AND OPERATOR: Gurdeep Ricardo M.D., Ph.D For any questions, please call customer service at FREQUENCY:MONTHLY Resulting Agency Comment Specimen source: Plasma Julito Cortez MD LAB BLOOD ORDERABLES Performing Organization Address [facility] de Phone Number [facility] See order comments or contact performing lab Unknown, [place] * (ABNORMAL) SPECIAL CHEMISTRY (08/31/2023) [facility] Vitamin B-12 3,903(H) 211 - 911 [...] BLOOD BANK TEST ORDERABLES Performing Organization Address [facility]/ZIP Co de Phone Number [facility] See order comments [...] 08/31/2023 09/01/2023 10: 25 AM CDT Narrative [facility] - 09/01/2023 Unless otherwise specified, test(s) performed at: [facility], [address] [place] [address], [place] [address] FOREMAN OR SUPERVISOR AND OPERATOR: Gurdeep Ricardo M.D., Ph.D For any questions, please call customer service at FREQUENCY:MONTHLY Resulting Agency Comment Specimen source: Serum Julito Cortez MD LAB BLOOD ORDERABLES [facility] See order comments or contact performing lab Unknown, [place] documented in this encounter Visit Diagnoses Not on filedocumented in this encounter
--- OUTSIDE RECORDS SUMMARY | 2023-12-05 10:38 | XMS_ITS | Encounter Summary ---
Author Organization [facility] [place] Address [address] [facility] [address] [place] [address] Care Team Providers Care Napper Tender Name Role Phone No, Pcp Primary Care Provider [phone] Encounter Details Date Type Department Care Team (Late st Contact Info) Description 11/03/2023 Orders Only [facility] [place] [address] [place] [address] Julito Cortez MD [address] [place] [address] Social History Tobacco Use Types [...] Shireen Ordering Provider LAB BLOOD ORDERABLE S [facility] Contact Performing lab Unknown, [place] * (ABNORMAL) [...] 11/06/2023 Unless otherwise specified, test(s) performed at: [facility], [address] [place] [address], [place] [address] TUBE MAKING MACHINE OPERATOR: Gurdeep Ricardo M.D., Ph.D For any [...] LAB BLOOD ORDERABLES Performing Organization Address [facility]/ZIP Co de Phone Number [facility] See order comments or contact performing lab Unknown, [place] * (ABNORMAL) POST CHEMISTRY (11/03/2023) BUN Post Dialysis 23(H) 6 - 19 mg/dL [facility] 11/03/2023 11/06/2023 10: 47 AM CDT Narrative [facility] - 11/06/2023 Unless otherwise specified, test(s) performed at: [facility], [address] [place] [address], [place] [address] TUBE MAKING MACHINE OPERATOR: Gurdeep Ricardo M.D., Ph.D For any questions, please call customer service at FREQUENCY:MONTHLY Resulting Agency Comment Specimen source: Plasma Julito Cortez MD LAB BLOOD ORDERABLES Performing Organization Address [facility] de Phone Number [facility] [...] 11/03/2023 11/06/2023 10: 28 AM CDT Narrative [facility] - 11/06/2023 Unless otherwise specified, test(s) performed at: [facility], [address] [place] [address], [place] [address] TUBE MAKING MACHINE OPERATOR: Gurdeep Ricardo M.D., Ph.D For any questions, please call customer service at FREQUENCY:MONTHLY Resulting Agency Comment Specimen source: Serum Julito Cortez MD LAB BLOOD ORDERABLES Performing Organization Address City/[facility]/ZIP Co de Phone Number [facility] [employer] [facility] See order comments or contact performing lab Unknown, [place] * (ABNORMAL) [facility] (11/03/2023) PTH 328(H) 16 - 80 pg/mL [facility] 11/03/2023 11/06/2023 10: 37 AM CDT Narrative [facility] - 11/06/2023 Unless otherwise specified, test(s) performed at: [facility], [address] [place] [address], [place] [address] TUBE MAKING MACHINE OPERATOR: Gurdeep Ricardo M.D., Ph.D For any questions, please call customer service at FREQUENCY:MONTHLY Resulting Agency Comment Specimen source: Plasma Julito Cortez MD LAB BLOOD ORDERABLES Performing Organization Address City/[facility]/ZIP Co de Phone Number [facility] See order comments or contact performing lab Unknown, [place] documented in this encounter Visit Diagnoses Not on filedocumented in this encounter Care Teams Napper Tender Relationship Specialty Start Date End Date No, Pcp PCP - General Internal Medicine 09/10/23 documented as of this encounter
--- OUTSIDE RECORDS SUMMARY | 2023-12-05 10:38 | XMS_ITS | Encounter Summary ---
Author Organization [facility] Address [address] [place] [address] Care Team Providers Care Upsetter Helper Name Role Phone No, Pcp Primary Care Provider [phone] Encounter Details Date Type Department Care Team (Late st Contact Info) Description 12/02/2023 Orders Only [facility] [place] [address] [place] [address] Julito Cortez MD [address] [place] [address] Social History Tobacco Use Types [...] Associated Diagnosis Comments HD KINETICS Routine 12/02/2023 POST CHEMISTRY Routine 12/02/2023 HEMATOLOGY Routine 12/02/2023 CHEMISTRY Routine 12/02/2023 CHEMISTRY Routine 12/02/2023 documented in this encounter Results * (ABNORMAL) HD KINETICS (12/02/2023) % Urea Reduction 52(L) 65 - 80 % [facility] 12/02/2023 12/04/2023 10: 54 AM CDT Narrative [facility] - 12/04/2023 Unless otherwise specified, test(s) performed at: [facility], [address] [place] [address], [place] [address] TRAFFIC ENGINEERING TECHNICIAN: Gurdeep Ricardo M.D., Ph.D For any questions, please call customer service at FREQUENCY:MONTHLY Resulting Agency Comment Specimen source: Plasma Julito Cortez MD LAB BLOOD ORDERABLES [facility] See order comments or contact performing lab Unknown, [place] * (ABNORMAL) [facility] (12/02/2023) BUN 42(H) 6 - 19 mg/dL [facility] [...] 12/02/2023 12/04/2023 9:3 8 AM CDT Narrative [facility] - 12/05/2023 Unless otherwise specified, test(s) performed at: [facility], [address] [place] [address], [place] [address] TRAFFIC ENGINEERING TECHNICIAN: Gurdeep Ricardo M.D., Ph.D For any questions, please call customer service at FREQUENCY:MONTHLY Resulting Agency Comment Specimen source: Serum Julito Cortez MD LAB BLOOD ORDERABLES Performing Organization Address [facility] de Phone Number [facility] See order comments or contact performing lab Unknown, [place] * (ABNORMAL) [facility] (12/02/2023) PTH 357(H) 16 - 80 pg/mL [facility] 12/02/2023 12/04/2023 10: 16 AM CDT Narrative [facility] - 12/04/2023 Unless otherwise specified, test(s) performed at: [employer] [employer], [address] [place] [id number] TRAFFIC ENGINEERING TECHNICIAN: Gurdeep Ricardo M.D., Ph.D For any questions, please call customer service at FREQUENCY:MONTHLY Resulting Agency Comment Specimen source: Plasma Julito Cortez MD LAB BLOOD ORDERABLES Performing Organization Address [facility] de Phone Number [facility] See order comments or contact performing lab Unknown, [place] * (ABNORMAL) POST CHEMISTRY (12/02/2023) Pathologist [facility] BUN Post Dialysis 20(H) 6 - 19 mg/dL [facility] 12/02/2023 12/04/2023 10: 54 AM CDT Narrative [facility] - 12/04/2023 Unless otherwise specified, test(s) performed at: [facility] [employer], [address] [place] [address], [place] [address] TRAFFIC ENGINEERING TECHNICIAN: Gurdeep Ricardo M.D., Ph.D For any questions, please call customer service at FREQUENCY:MONTHLY Resulting Agency Comment Specimen source: Plasma Julito Cortez MD LAB BLOOD ORDERABLES Performing Organization Address [facility] de Phone Number [facility] See order comments or contact performing lab Unknown, [place] * (ABNORMAL) HEMATOLOGY (12/02/2023) Pathologist [facility] Neutrophils 67.1 40.0 - 75.0 % [facility] [...] 12/02/2023 12/04/2023 10: 16 AM CDT Narrative [facility] - 12/04/2023 Unless otherwise specified, test(s) performed at: [facility] [employer], [address] [place] [address], [place] [address] TRAFFIC ENGINEERING TECHNICIAN: Gurdeep Ricardo M.D., Ph.D For any questions, please call customer service at FREQUENCY:MONTHLY Resulting Agency Comment Specimen source: Blood Julito Cortez MD LAB BLOOD ORDERABLES [facility] See order comments or contact performing lab Unknown, [place] documented in this encounter Visit Diagnoses Not on filedocumented in this encounter Care Teams Upsetter Helper Relationship Specialty Start Date End Date No, Pcp PCP - General Internal Medicine 09/10/23 documented as of this encounter
--- OUTSIDE RECORDS SUMMARY | 2023-12-05 10:38 | XMS_ITS | Encounter Summary ---
Author Organization [facility] Address [address] [place] [address] Care Team Providers Care Broomcorn Grader Name Role Phone No, Pcp Primary Care Provider [phone] Encounter Details Date Type Department Care Team (Late st Contact Info) Description 11/08/2023 Orders Only [facility] [place] [address] [place] [address] Julito Cortez MD [address] [place] [address] Social History Tobacco Use Types [...] 11/10/2023 Unless otherwise specified, test(s) performed at: [email or web address], [address] [place] [address], [place] [address] SCREW MACHINE OPERATOR: Gurdeep Ricardo M.D., Ph.D For any questions, please call customer service at FREQUENCY:OTHER Resulting Agency Comment Specimen source: Serum Julito Cortez MD LAB BLOOD ORDERABLES [facility] See order comments or contact performing lab Unknown, [place] documented in this encounter Visit Diagnoses Not on filedocumented in this encounter Care Teams Broomcorn Grader Relationship Specialty Start Date End Date No, Pcp PCP - General Internal Medicine 09/10/23 documented as of this encounter
--- OUTSIDE RECORDS SUMMARY | 2023-12-05 10:38 | XMS_ITS | Encounter Summary ---
Author Organization [facility] [place] Address [address] [place] [address] Care Team Providers Care Ham Clerk Name Role Phone No, Pcp Primary Care Provider [phone] Encounter Details Date Type Department Care Team (Late st Contact Info) Description 11/22/2023 Treatment [facility] [place] [address] [place] [address] Julito Cortez MD [address] [place] [address] Social History Tobacco Use Types [...] Name: Maco Stein : 1980 Chart #: [id number] Sex: M This patient was personally seen for a complete visit as part of routine monthly dialysis care. A review of the dialysis treatment, blood pressure, estimated dry weight and recent lab values was made. These were discussed with the patient and staff as necessary. AUTO BODY WORKER: Julito Cortez MD LOCATION: [phone] SCHEDULE: EDW: kg. DIALYZER: HD DURATION: NEEDLE [...] or CP. has appt next week at [facility] Txp. 06/15/23: Feels well. no concerns. cost was a barrier to getting the Lokelma, hasn't obtained it,yet. 05/01/23: Feels well. no SOB or CP. No N/v/d. Stable wt. BP's are better. 04/10/23: Feels well, 2nd day with 2 16 g needles in. no SOB or CP. 03/01/23: HD going well. but having L AVF/arm discomfort/numbness, worse on the run. has appt at [facility] next Tu with Dr. Solorzano. fingers cool but not cold, no weakness, no pain. Interested in HHD and going to for education tomorrow. referred for txp to [facility]. 01/24/23: Feels well, got his AVF at [facility] yesterday. no arm pain. no SOB or CP. 12/25/22: BP is better after lowering his meds. still has ringing in his ears at end of every run, and leaving about EDW and no edema or SOB. Going for AVF soon. still can't do Txp eval until insurance is confirmed. 11/24/22: Feels fine today. No SOB or CP. hasn't been to [facility], yet. no N/V. 11/01/22: my second time seeing him. feels better. has had some tinnitus. BP is high but no MORA, blurry vision, CP or SOB. appetite is better. Taking losartan 50 mg/d. 10/02/22: My first time meeting him. his second time here, started here 09/29. Came from [facility] where he initiated. Feels ok today. no SOB or CP Advanced Practitioner Subjective REGISTERED DENTAL ASSISTANT 08/01/2023:Seen on dialysis. Doing well. No SOB, or chest pain reported. Arm access working well; no reported issues. BP slightly elevated. Leaving close to EDW. Potassium improved. Continue plan ofcare. REGISTERED DENTAL ASSISTANT 06/06/2023: Patient seen on dialysis. Doing well. [...] mouth twice a day 07/13/2023 RenaPlex-D (vit b,a-yo-wzwg-selen-vit d3-e) 800 mcg-12.5 mg-2,000 unit tablet Take [...] of access: Fistula Surgeon - IR at [facility] Staff and patient report access is working well. Send to Surgeon for access creation. 04/10/23: using AVF d #2 today. 03/01/23: may have steal, going to see surgeon 03/06/23 01/24/23 L AVF at [facility] 01/23/23 (see OP note) 12/25/22: has [facility] appt upcoming 11/01/22: needs AVF eval at [facility] 10/02/22: needs AVF eval at [facility] Anemia Assessment HEMOGLOBIN (G/DL) IN BLOOD [...] K+ diet education ongoing 08/13/23: Labs pending REGISTERED DENTAL ASSISTANT 02/08/2023: Educated on low potassium foods. Bone [...] at goal. Intact PTH is at goal. Cane Furniture Maker will adjust binders and vitamin D per protocol and continue to provide dietary education. 08/13/23: Labs pending Cardiovascular Assessment Blood pressures reviewed and are acceptable. Intradialytic weight gains are appropriate. Estimated dry weight is appropriate. Continue same cardiovascular medications. 11/22/23: erratic BP's and keep log and report to us in 1-2 wks. REGISTERED DENTAL ASSISTANT 05/11/2023 decreased to 95.5 kg 03/01/23: increase 96 12/25/22: increase 93.5 MD 11/24/22: increase 92 11/01/22: increase losartan to 100 mg q evening. next would add CCB, edw 93.5 REGISTERED DENTAL ASSISTANT 10/09/2022: Had been still taking hydralazine; not started losartan. Instructed to make change 10/02/22: d/c hydralazine, add Losartan 50 mg q evening. Transplant Status: Patient has been referred. Center - [facility] 04/10/23: got his LEA in Jan and was referred to [facility], still waiting to hear back 11/24/22: not [...] on filedocumented in this encounter Care Teams Ham Clerk Relationship Specialty Start Date End Date No, Pcp PCP - General Internal Medicine 09/10/23 documented as of this encounter
--- OUTSIDE RECORDS SUMMARY | 2023-12-05 10:38 | XMS_ITS | Encounter Summary ---
Author Organization [facility] Address [address] [place] [address] Care Team Providers Care Strip Catcher Name Role Phone No, Pcp Primary Care Provider [phone] Encounter Details Date Type Department Care Team (Late st Contact Info) Description 09/10/2023 Orders Only [facility] [place] [address] [place] [address] Julito Cortez MD [address] [place] [address] Social History Tobacco Use Types [...] (09/10/2023) Potassium 6.0(H) 3.5 - 5.1 mEq/L [facility] 09/10/2023 09/11/2023 3:3 0 AM CDT Narrative [facility] - 09/11/2023 Unless otherwise specified, test(s) performed at: [facility], [address] [place] [address], [place] [address] SECTION MAINTAINER: Gurdeep Ricardo M.D., Ph.D For any questions, please call customer service at FREQUENCY:OTHER Resulting Agency Comment Specimen source: Serum Julito Cortez MD LAB BLOOD ORDERABLES [facility] See order comments or contact performing lab Unknown, [place] documented in this encounter Visit Diagnoses Not on filedocumented in this encounter Care Teams Strip Catcher Relationship Specialty Start Date End Date No, Pcp PCP - General Internal Medicine 09/10/23 documented as of this encounter
--- OUTSIDE RECORDS SUMMARY | 2023-12-05 10:38 | XMS_ITS | Encounter Summary ---
Author Organization [facility] Address [address] [place] [address] Care Team Providers Care Acid Bleacher Name Role Phone No, Pcp Primary Care Provider [phone] Encounter Details Date Type Department Care Team (Late st Contact Info) Description 11/22/2023 Orders Only [facility] [place] [address] [place] [address] Julito Cortez MD [address] [place] [address] Social History Tobacco Use Types [...] (11/22/2023) Potassium 5.4(H) 3.5 - 5.1 mEq/L [facility] 11/22/2023 11/23/2023 7:1 8 AM CDT Narrative [facility] - 11/23/2023 Unless otherwise specified, test(s) performed at: [facility] [address] [place] [address], [place] [address] LABORATORY TECHNICAL SPECIALIST: Gurdeep Ricardo M.D., Ph.D For any questions, please call customer service at FREQUENCY:OTHER Resulting Agency Comment Specimen source: Serum Julito Cortez MD LAB BLOOD ORDERABLES [facility] See order comments or contact performing lab Unknown, [place] documented in this encounter Visit Diagnoses Not on filedocumented in this encounter Care Teams Acid Bleacher Relationship Specialty Start Date End Date No, Pcp PCP - General Internal Medicine 09/10/23 documented as of this encounter
--- OUTSIDE RECORDS SUMMARY | 2023-12-05 10:38 | XMS_ITS | Encounter Summary ---
Author Organization [facility] Address [address] [place] [address] Care Team Providers Care Black Puller Name Role Phone Unavailable Primary Care Provider Unavailabl e Encounter Details Date Type Department Care Team (Late st Contact Info) Description 08/29/2023 Orders Only [facility] [place] [address] [place] [address] Julito Cortez MD [address] [place] [address] Social History Tobacco Use Types [...] (08/29/2023) Hemoglobin 9.3(L) 14.0 - 18.0 g/dL [facility] Hemoglobin x 3 27.9(L) 42.0 - 54.0 % [facility] 08/29/2023 09/01/2023 12: 05 PM CDT Narrative [facility] - 09/01/2023 Unless otherwise specified, test(s) performed at: [facility], [address] [place] [address], [place] [address] TOOL MAKER: Gurdeep Ricardo M.D., Ph.D For any questions, please call customer service at FREQUENCY:OTHER Resulting Agency Comment Specimen source: Blood Julito Cortez MD LAB BLOOD ORDERABLES [facility] See order comments or contact performing lab Unknown, [place] documented in this encounter Visit Diagnoses Not on filedocumented in this encounter
--- OUTSIDE RECORDS SUMMARY | 2023-12-05 10:38 | XMS_ITS | Clinical Summary ---
Author Organization [facility] [facility] Address [place], [place] [address] Care Team Providers Care Shoe Ironer Name Role Phone Daysi Pires Primary Care Provider Allergies Active Allergy Reactions Criticality Noted Date Comments Latex *Unknown 09/15/2022 Tramadol *Unknown 09/15/2022 Medications Medication Sig Dispensed Refills Start Date End Date Status gabapentin (NEURONTIN) 300 mg capsule Take 300 mg by mouth once daily if needed. Active calcitrioL 0.5 mcg capsuleIndications:Secjagdish naif hyperparathyroidism of renal origin (HC) Take [...] two times daily. 60 Tablet 4 Active amoxicillin-clavulanate (AUGMENTIN) 500-125 mg tabletIndications:Commun ity acquired pneumonia of right lower lobe of lung,Dialysis patient (HC),End stage renal disease (HC) Take 1 Tablet by mouth every 12 hours for 10 days. 20 Tablet 4 12/10/19 24 Active azithromycin (Zithromax Z-Waldo) 250 mg tabletIndications:Commun ity acquired pneumonia of right lower lobe of lung Two tablets the first day, one daily days 2-5 6 Tablet 4 12/05/19 24 Active sensor (FreeStyle Gale 3 Sensor) for continuous blood glucose monitor (CGM)Indications:Type 2 diabetes mellitus with chronic kidney disease on chronic dialysis, with long-term current use of insulin (HC) To be used to read blood sugars, change sensor every 14 days. 6 Each 3 4 Active codeine-guaiFENesin 10-100 mg/5 mL liquidIndications:Cough, unspecified type,Community acquired pneumonia of right lower lobe of lung Take 5-10 mL by mouth at bedtime if needed for Cough. Max dose 60 mL per 24 hrs. 118 mL 4 Active Active Problems Problem Noted Date [...] disease 09/24/2022 Overview (09/24/2022): HD started at [facility] 09/16/22 HTN (hypertension) 09/15/2022 Acute on chronic kidney failure 09/15/2022 Hypertensive emergency 09/15/2022 DIABETES 01/27/2002 Encounters Date Type Department Care Team Description 12/03/2023 Telephone [facility] [place] [address] [place] [address] Daysi Pires PA Follow Up 11/30/2023 3:30 PM CDT Ancillary Procedure [facility] [place] [address] [place] [address] Arrived 11/30/2023 2:40 PM CDT Office Visit [facility] [place] [address] [place] [address] Daysi Pires PA Follow Up (Coughing, SOB, chills started Sunday) 11/30/2023 Travel 10/31/2023 11:35 AM CDT Office Visit [facility] [place] [address] [place] [address] Ning Lopez PA Hospital F/U (Slowly feeling better ) 10/31/2023 Travel 10/26/2023 Patient Outreach [facility] [place] [address] [place] [address] Laura Reyes, RN Primary RN Care Management (Lian 56); Hospital F/U 10/23/2023 5:44 PM CDT - 10/25/2023 5:30 AM CDT Hospital Encounter [facility] [address] [place] [address] Aiden Babin MD [facility] Eyad Wallace MD Kethireddy, Rajesh Babu, MBBS Lower extremity edema (Primary Dx); ESRD (end stage renal disease) (HC); HTN (hypertension) Discharge Disposition: Home Self Care 10/23/2023 Travel 10/19/2023 Nurse Triage [facility] [place] [address] [place] [address] Daysi Pires PA Chest Pain from Last 3 Months Immunizations Name Administration Dates Next Due Hep B (Hepatitis B (Adult) Recombinant Adjuvanted) 03/15/2023,01/12/2023,12/13/2022,2022 Influenza RIV4 (Age 18+ Year s) PRESERV FREE 05/18/2023 Pneumococcal Conj 20-valent (Prevnar 20) 11/22/2023 Social History Tobacco Use Types Packs/Day Years [...] Sign Reading Time Taken Comments Blood Pressure 189/77 11/30/2023 2:58 PM CDT Pulse 93 11/30/2023 2:58 PM CDT Temperature 37.2 ??C (98.9 ??F) 11/30/2023 2:58 PM CD T Respiratory Rate 16 10/25/2023 12:29 PM CDT Oxygen Saturation 96% 11/30/2023 2:58 PM CDT Inhaled Oxygen Concentration - - Weight 97.1 kg (214 lb) 11/30/2023 2:58 PM CDT Height 175.3 cm (5' 9) 10/23/2023 5:31 PM CDT Body Mass Index 31.6 10/23/2023 5:31 PM CDT Plan of Treatment Health Maintenance Due Date Last Done Comments Tdap 10/14/1990 Depression screening for age 12+ 1991 HIV for age 15-65 10/14/1994 BMI (ht and wt on same day) for age 18+ 10/14/1997 Hepatitis C screening for ag e 18-79 10/14/1997 Tetanus booster 1999 COVID-19 vaccine series ( season) 2023 Influenza for age 9-49 10/28/2023 05/18/2023 Hepatitis B series for Diabe isela (5 of 5 - Risk Dialysis Recombivax 3-dose series) 03/15/2024 03/15/2023, 01/12/2023, 12/13/2022, Additional history exists Lipids for age 35-44 12/06/2026 12/06/2021, 07/06/2021, 04/07/2020 Pneumococcal series for age 6-64 Completed 11/22/19 24 Procedures Procedure Name Priority Date/Time Associated Diagnosis Comments XR CHEST 2 VIEWS PA AND LATERAL Routine 11/30/2023 3:26 PM CDT Cough, unspecified type GLUCOSE METER Timed 10/25/2023 12:32 PM CDT [...] Recently Relevant to Health Maintenance Results * XR CHEST 2 VIEWS PA AND LATERAL (11/30/2023 3:26 PM CDT) Anatomical Region Laterality Modality CHEST, THORAX, Lung, HEART Compu nhi Radiography 12/02/2023 9:55 PM CDT Impressions 12/02/2023 9:55 PM CDT No acute findings. Dictated by Jena Manzo MD @ 12/02/2023 9:55:55 PM (Electronically Signed) Narrative 12/02/2023 9:55 PM CDT For Patients: ??As a result of the Cures Act, medical imaging exams and procedure reports are released immediately into your electronic medical record. ??You may view this report before your referring provider. ??If you have questions, please contact your health care provider. INDICATION: Cough TECHNIQUE: Chest 2 views COMPARISON: 09/23/2022 FINDINGS: Cardiovascular and mediastinum: ??Heart size and vasculature are normal in caliber and appearance. ?? Lungs and pleural spaces: ??Lungs are clear. ??No sign of infiltrate or mass. ??No sign of pleural effusion. ??No pneumothorax. ?? Bones and soft tissues: ??No significant findings. Procedure Note Jean Manzo MD - 12/02/2023 For Patients: As a result of the Cures Act, medical imagingexams and procedure reports are released immediately into your electronicmedical record. You may view this report before your referring provider.If you have questions, please contact your health care provider. INDICATION: Cough TECHNIQUE: Chest 2 views COMPARISON: 09/23/2022 FINDINGS: Cardiovascular and mediastinum: Heart size and vasculature are normal incaliber and appearance. Lungs and pleural spaces: Lungs are clear. No sign of infiltrate ormass. No sign of pleural effusion. No pneumothorax. Bones and soft tissues: No significant findings. IMPRESSION: No acute findings. Dictated by Jean Manzo MD @ 12/02/2023 9:55:55 PM (Electronically Signed) [facility] * (ABNORMAL) GLUCOSE METER (10/25/2023 12:32 PM CDT) Only the most recent of7 resultswithin the time period is included. GLUCOSE METER 127(H) 65 - 100 mg/dL 10/25/2023 12:33 PM CDT [facility] Blood BLOOD SPECIMEN / Unknown 10/25/2023 12:32 PM CDT 10/25/2023 12:33 PM CDT Sean Torres [facility] CHEMISTRY [facility] [address] [place] [address], * ECHO TTE COMPLETE WO CONTRAST (10/24/2023 11:01 AM CDT) AORTIC VALVE MEAN PG 4 mmHg LVEDD 5.2 cm EJECTION FRACTION 55 - 60% Anatomical Region Laterality Modality Ultrasound 10/24/2023 9:54 AM CDT Narrative 10/24/2023 11:09 AM CDT ECHOCARDIOGRAM MACO STEIN ? Accession#: ?? [id number] : ?1980 43 years Study Date: ?? 10/24/2023 9:54:07 AM Gender: M ?BP: ? 180/83 mmHg Height: 175.00 cm ?BSA: ?2.10 m? ? ? Weight: 95.00 kg ? Tech: ? CJG ? Referring MD: EYAD WALLACE Site: ? [facility] Reading Location: [facility] Patient Location: Inpatient. Procedure: 2D w/ [...] detected. Comparison Compared to prior exam of COOK DINNER, there has been no significant change. Chamber [...] . This study was interpreted by an [facility] accredited facility. ??Final ?? Procedure Note Alex Weaver MD - 10/24/2023 ECHOCARDIOGRAM MACO STEIN : 1980 43 years Study Date: 10/24/2023 9:54:07 AM Gender: M BP: 180/83 mmHg Height: 175.00 cm BSA: 2.10 m? ? ? Weight: 95.00 kg Tech: CJG Referring MD: EYAD WALLACE Site: [facility] Reading Location: [facility] Patient Location: Inpatient. Procedure: 2D w/ [...] detected. Comparison Compared to prior exam of COOK DINNER, there has been no significant change. Chamber [...] . This study was interpreted by an [facility] accredited facility. Final Eyad Wallace MD ECHO ORD * HBSAG (HBS) (10/24/2023 7:01 AM CDT) HBSAG Nonreactive Nonreactive 10/24/2023 10:42 AM CDT [facility] Blood BLOOD SPECIMEN / Unknown Venipuncture / Unknown 10/24/2023 7:01 AM CDT 10/24/2023 8:32 AM CDT Rabia Husain MD SEND OUT S [facility] [address] [place] [address], [place] * (ABNORMAL) Electrolyte panel AM (10/24/2023 7:01 AM CDT) SODIUM 134(L) 136 - 145 mmol/L 10/24/2023 8:56 AM CDT [facility] POTASSIUM 4.1 3.5 - 5.1 mmol/L 10/24/2023 8:56 AM CDT [facility] CHLORIDE 94(L) 98 - 107 mmol/L 10/24/2023 8:56 AM CDT [facility] CO2,TOTAL 28 22 - 29 mmol/L 10/24/2023 8:56 AM CDT [facility] ANION GAP 12 5 - 18 10/24/2023 8:56 AM CDT [facility] Blood BLOOD SPECIMEN / Unknown Venipuncture / Unknown 10/24/2023 7:01 AM CDT 10/24/2023 8:32 AM CDT Eyad Wallace MD CHEMISTRY [facility] [address] [place] [address], [place] * US VENOUS LOWER EXTREMITY BILATERAL [...] 6-15 ng/L ng/L 10/23/2023 7:35 PM CDT [facility] Blood BLOOD SPECIMEN / Unknown Butterfly / Unknown 10/23/2023 6:57 PM CDT 10/23/2023 7:09 PM CDT Narrative [facility] - 10/23/2023 7:35 PM CDT hs-cTnT [...] department patient population. Aiden Babin MD CHEMISTRY [facility] [address] [place] [address], [place] * (ABNORMAL) CBC W PLT NO DIFF (10/23/2023 6:57 PM CDT) Pathologist [facility] WHITE BLOOD COUNT 6.3 4.5 - 11.0 thou/cu mm 10/23/2023 7:15 PM CDT [facility] RED BLOOD COUNT 2.63(L) 4.30 - 5.90 mil/cu mm 10/23/2023 7:15 PM CDT [facility] HEMOGLOBIN 8.7(L) 13.5 - 17.5 g/dL 10/23/2023 7:15 PM CDT [facility] HEMATOCRIT 25.0(L) 37.0 - 53.0 % 10/23/2023 7:15 PM CDT [facility] MCV 95 80 - 100 fL 10/23/2023 7:15 PM CDT [facility] MCH 33.1 26.0 - 34.0 pg 10/23/2023 7:15 PM CDT [facility] MCHC 34.8 32.0 - 36.0 g/dL 10/23/2023 7:15 PM CDT [facility] RDW 13.2 11.5 - 15.5 % 10/23/2023 7:15 PM CDT [facility] PLATELET COUNT 100(L) 140 - 440 thou/cu mm 10/23/2023 7:15 PM CDT [facility] MPV 12.0(H) 6.5 - 11.0 fL 10/23/2023 7:15 PM CDT [facility] NRBC 0.0 % 10/23/2023 7:15 PM CDT [facility] ABS NRBC 0.0 thou /cu mm 10/23/2023 7:15 PM CDT [facility] Blood BLOOD SPECIMEN / Unknown Butterfly / Unknown 10/23/2023 6:57 PM CDT 10/23/2023 7:09 PM CDT Aiden Babin MD HEMATOLOGY [facility] [address] [place] [address], * (ABNORMAL) HEPATIC FUNCTION PANEL (10/23/2023 6:57 PM CDT) ALBUMIN 3.7(L) 4.0 - 4.9 g/dL 10/23/2023 7:35 PM CDT [facility] PROTEIN,TOTAL 6.9 6.0 - 8.0 g/dL 10/23/2023 7:35 PM CDT [facility] BILIRUBIN,TOTAL 0.5 0.0 - 1.2 mg/dL 10/23/2023 7:35 PM CDT [facility] BILIRUBIN,DIRECT 0.2 0.0 - 0.2 mg/dL 10/23/2023 7:35 PM CDT [facility] BILIRUBIN,INDIRE CT 0.3 0.2 - 0.8 mg/dL 10/23/2023 7:35 PM CDT [facility] ALK PHOSPHATASE 74 40 - 129 IU/L 10/23/2023 7:35 PM CDT [facility] ALT (SGPT) 7(L) 10 - 50 IU/L 10/23/2023 7:35 PM CDT [facility] AST (SGOT) 17 10 - 50 IU/L 10/23/2023 7:35 PM CDT [facility] Blood BLOOD SPECIMEN / Unknown Butterfly / Unknown 10/23/2023 6:57 PM CDT 10/23/2023 7:09 PM CDT Aiden Babin MD [facility] [address] [place] [address], * (ABNORMAL) BASIC METABOLIC PANEL (10/23/2023 6:57 PM CDT) SODIUM 131(L) 136 - 145 mmol/L 10/23/2023 7:35 PM CDT [facility] POTASSIUM 4.1 3.5 - 5.1 mmol/L 10/23/2023 7:35 PM CDT [facility] CHLORIDE 90(L) 98 - 107 mmol/L 10/23/2023 7:35 PM CDT [facility] CO2,TOTAL 29 22 - 29 mmol/L 10/23/2023 7:35 PM CDT [facility] ANION GAP 12 5 - 18 10/23/2023 7:35 PM CDT [facility] GLUCOSE 366(H) 70 - 99 mg/dL 10/23/2023 7:35 PM CDT [facility] CALCIUM 8.7 8.6 - 10.0 mg/dL 10/23/2023 7:35 PM CDT [facility] BUN 29(H) 6 - 20 mg/dL 10/23/2023 7:35 PM CDT [facility] CREATININE 6.62(H) 0.70 - 1.20 mg/dL 10/23/2023 7:35 PM CDT [facility] BUN/CREAT RATIO 4(L) 10 - 20 4 7:35 PM CDT [facility] eGFR 10(L) >90 mL/min/1.7 3m2 10/23/2023 7:35 PM CDT [facility] Comment:As of 2021, eG FR [...] 7:09 PM CDT Aiden Babin MD [facility] [address] [place] [address], * EKG 12 LEAD (10/23/2023 5:34 PM CDT) Interpretation Normal sinus rhythm Normal ECG Compared to ekg of 3 No Change BEYOND NOW Ventricular Rate 93 BPM BEYOND NOW Atrial Rate 93 BPM BEYOND NOW P-R Interval 170 ms BEYOND NOW QRS Duration 80 ms BEYOND NOW QT 362 ms BEYOND NOW QTc 450 ms BEYOND NOW P Mentor 29 degrees BEYOND NOW R Mentor 56 degrees BEYOND NOW T Mentor 68 degrees BEYOND NOW 10/23/2023 5:34 PM CDT 10/23/2023 11:22 PM CDT Aiden Babin MD EKG ORD Performing Organization Address City/[facility]/ZIP Co de Phone Number BEYOND NOW [place], [place] * (ABNORMAL) LIPID PANEL (12/06/2021 3:00 PM CDT) [facility] CHOLESTEROL,TOTAL 163 100 - 199 mg/dL 12/07/2021 3:15 PM CDT [facility] TRIGLYCERIDES 272(H) <150 mg/dL 12/07/2021 3:15 PM CDT [facility] HDL CHOLESTEROL 23(L) >40 mg/dL 3:15 PM CDT [facility] NON-HDL CHOLESTEROL 140 <145 mg/dl 12/07/2021 3:15 PM T [facility] CHOL/HDL RATIO 7.09(H) <4.50 12/07/2021 3:15 PM CDT [facility] LDL CHOLESTEROL 86 <=130 mg/dL 12/07/2021 3:15 PM CDT [facility] VLDL CHOLESTEROL 54(H) <=30 mg/dL 12/07/2021 3:15 PM CDT [facility] PROVIDER ORDERED STATUS RANDOM 12/07/2021 3:15 PM CDT [facility] Blood BLOOD SPECIMEN / Unknown 12/06/2021 3:00 PM CDT 12/07/2021 2:54 PM CDT Aidee Sher NP CHEMISTRY Performing Organization Address City/[facility]/ZIP Co de Phone Number [facility] [address] [place] [phone] from Last 3 Months or Most Recently Relevant to Health Maintenance Advance Directives Documents on File Type Date Recorded Patient Cut In Station Operator Expl anation Healthcare Directive 09/26/2022 023 * Full Code (Latest Code Status on File) Date Activated Date Inactivated Comments 10/23/2023 8:52 PM 10/26/2023 1:29 AM Question Answer Comments Code Status Discussion: Reviewed Preferences * Full Code Date Activated Date Inactivated Comments 09/15/2022 5:47 PM 09/27/2022 6:10 PM Question Answer Comments Code Status Discussion: Reviewed Preferences Care Teams Shoe Ironer Relationship Specialty Start Date End Date Daysi Pires PA [address] [place] [address] PCP - General Physician Buckle Wire Inserter 06/04/23
--- OUTSIDE RECORDS SUMMARY | 2023-12-05 10:38 | XMS_ITS | Encounter Summary ---
Author Organization [facility] Address [address] [facility] [address] [place] [address] Care Team Providers Care Buncher Machine Name Role Phone No, Pcp Primary Care Provider [phone] Encounter Details Date Type Department Care Team (Late st Contact Info) Description 09/27/2023 Orders Only [facility] [address] [place] [address] Julito Cortez MD [address] [place] [address] Social History Tobacco Use Types [...] Shireen Ordering Provider LAB BLOOD ORDERABLE S [facility] Contact Performing lab Unknown, [place] [...] 09/28/2023 Unless otherwise specified, test(s) performed at: [facility], [address] [place] [address], [place] [address] JEWELRY INSPECTOR: Gurdeep Ricardo M.D., Ph.D For any questions, [...] BLOOD ORDERABLES Performing Organization Address [facility]/ZIP Co de Phone Number [facility] See order comments or contact performing lab Unknown, [place] * (ABNORMAL) POST CHEMISTRY (09/27/2023) BUN Post Dialysis 23(H) 6 - 19 mg/dL [facility] 09/27/2023 09/28/2023 3:1 1 AM CDT Narrative [facility] - 09/28/2023 Unless otherwise specified, test(s) performed at: [facility], [address] [place] [address], [place] [address] JEWELRY INSPECTOR: Gurdeep Ricardo M.D., Ph.D For any questions, please call customer service at FREQUENCY:MONTHLY Resulting Agency Comment Specimen source: Plasma Julito Cortez MD LAB BLOOD ORDERABLES Performing Organization Address [facility] de Phone Number [facility] [...] 09/27/2023 09/28/2023 2:5 6 AM CDT Narrative [facility] - 09/28/2023 Unless otherwise specified, test(s) performed at: [facility], [address] [place] [address] JEWELRY INSPECTOR: Gurdeep Ricardo M.D., Ph.D For any questions, please call customer service at FREQUENCY:MONTHLY Resulting Agency Comment Specimen source: Serum Julito Cortez MD LAB BLOOD ORDERABLES Performing Organization Address [facility] Co de Phone Number [email or web address] See order comments or contact performing lab Unknown, [place] * (ABNORMAL) [facility] Chemistry (09/27/2023) PTH 291(H) 16 - 80 pg/mL [facility] 09/27/2023 09/28/2023 3:0 3 AM CDT Narrative [facility] - 09/28/2023 Unless otherwise specified, test(s) performed at: [facility], [address] [place] [address], [place] [address] JEWELRY INSPECTOR: Gurdeep Ricardo M.D., Ph.D For any questions, please call customer service at FREQUENCY:MONTHLY Resulting Agency Comment Specimen source: Plasma Julito Cortez MD LAB BLOOD ORDERABLES Performing Organization Address [facility]/ZIP Co de Phone Number [email or web address] See order comments or contact performing lab Unknown, [place] documented in this encounter Visit Diagnoses Not on filedocumented in this encounter Care Teams Buncher Machine Relationship Specialty Start Date End Date No, Pcp PCP - General Internal Medicine 09/10/23 documented as of this encounter
== END 2023-12-05 10:31 | disposition home or self-care (01) ==
LOC: WOUND 10:30
PROVIDERS: PCP Internal Medicine; Visit Provider Surgery
DX: E11.621 Type 2 diabetes mellitus with foot ulcer (principal); E11.40 Type 2 diabetes mellitus with diabetic neuropathy, unspecified; L97.522 Non-pressure chronic ulcer of other part of left foot with fat layer exposed; E11.22 Type 2 diabetes mellitus with diabetic chronic kidney disease; N18.6 End stage renal disease; Z79.4 Long term (current) use of insulin; Z99.2 Dependence on renal dialysis
CPT/HCPCS: 97597

== ENCOUNTER 2023-12-12 10:30 | Outpatient (CLI) | payer MEDICAID, SELFPAY ==
--- OUTSIDE RECORDS SUMMARY | 2023-12-12 10:35 | XMS_ITS ---
Author Name [facility], [facility] Address [address] [place] [address] Phone [phone] Organization [facility] e, NA DOCUMENT DISCLAIMER Multiple document versions may exist, please be sure you review the latest version. The information in the [facility] Continuity of Care Document represents [...] push November 07, 2023 November 05, 2024 Discontinued Mircera Self Administer at Home Once 150 mcg Subcutaneous December 10, 2023 Discontinued Home Medications Medication Instructions Dosage [...] Sign Value Date / Time Blood Pressure-sitting 200/61 mmHg November 262023 05:07 PM Temperature 98.4 deg. F December 11, 2023 05:07 PM Weight Vital Sign Value Date / Time Estimated Dry Weight 87 kg October 11:59 PM Pre-Dialysis 88.9 kg December 11, 2023 05:07 PM Post-Dialysis 70.4 kg December 11, 2023 05:07 PM Other Other Value Date / Time Height 175 cm August 27, 2023 12 :00 AM Body Mass Index 28.41 kg/m2 December 11, 2023 02:13 PM LAB RESULTS Hematology Result Type Result Value Relevant Referen ce Range Interpretation Date UIBC (Calc) 160 mcg/dL 155 - 355 [...] 750 ng/mL 22 - 322 ng/mL High Sandra 19, 2 024 TIBC 252 mcg/dL 185 - 515 [...] - 911 pg/mL High August 31, 2023 Chloride 101 mEq/L 96 - 108 [...] - 19 mg/dL High September 26, 024 URR, Calc 57 % 65 - 80 % Low September 26 Bicarbonate 26 mEq/L 20 - 31 mEq/L - November 03, 2023 Potassium 7.2 mEq/L 3.5 - 5.1 mEq/L Critically high Oct Chloride 107 mEq/L 96 - 108 mEq/L - November 03, 2023 BUN/Creat Ratio 5.0 10.0 - 20.0 Low r 2023 Sodium 136 mEq/L 136 - [...] Reference Range Provided Normal November 03, 2023 wstdKt/V 2.2 No Reference Ran ge Provided - December 02, 2023 wstdKt/V without residual 2.2 No Reference Range Provided - December 02, 2023 spKt/V Daugirdas II (HHD) 0.78 No Reference Range Provided Normal December 02, 2023 wstdKt/V, residual 0.0 No Reference Range Provided - December 02, 2023 Simple Kt/V (Home HD Only) 0.73 No Reference Range Provided Normal December 02, 2023 Bone/Mineral Result Type Result Value Relevant [...] x P Product 37 0 - November 02 24 Phosphorus 4.4 mg/dL 2.6 - 4.5 [...] U/L 40 - 129 U/L - Oc tober 2023 PTH-Intact, Plasma 357 pg/mL 16 - 80 pg/mL High Oct nicky 2023 Magnesium 2.7 mg/dL 1.6 - [...] 29, 2023 Frequency 4X Week [facility]Cartridge CAR 172 Therapy Fluid (dialysate) [...] Meds-entered by patient Octob er 2023 Weight 87 kg Weight 85.6 kg 2:59 1 of 8 400 CAR-172-C 2K 45 Lactate Blood Pressure-sitting 191/88 mmHg Blood Pressure-sitting 16 3/63 mmHg 2 of 8 400 Blood Pressure-standing 203/79 mmHg Blood Pressure-standing 163/65 mmHg 3 of 8 400 Heart Rate 83 beats per minute Heart Rate 80 beats per minute 4 of 8 400 Temperature 97.9 deg. F - - 5 of 8 400 - - - - 6 of 8 400 - - - - 7 of 8 400 - - - - 8 of 8 400 December 10, 2023 Weight 93.2 kg Weight 89.4 kg 1:54 1 of 5 230 CAR-172-C 2K 45 Lactate Not available Heparin 1999 Access Heparin 2000 Via Access Blood Pressure-sitting 191/77 mmHg Blood Pressure-sitting 18 8/67 mmHg 2 of 5 400 Blood Pressure-standing 176/62 mmHg Blood Pressure-standing 181/62 mmHg 3 of 5 400 Heart Rate 87 beats per minute Heart Rate 86 beats per minute 4 of 5 400 Temperature 98 deg. F Temperature 97.7 deg. F 5 of 5 400 December 11, 2023 Weight 88.9 kg Weight 70.4 kg - - - CAR-172-C 2K 45 Lactate Not available Heparin [address] 150[address]g Subcutaneous Heparin 2000 Access Blood Pressure-sitting 172/79 mmHg Blood Pressure-sit ting 200/61 mmHg Blood Pressure-standing 168/72 mmHg Temperature 98.4 deg. F Heart Rate 82 beats per minute - - Temperature 97.2 deg. F - -
--- OUTSIDE RECORDS SUMMARY | 2023-12-12 10:36 | XMS_ITS | Encounter Summary ---
Author Organization [facility] Address [address] [place] [address] Phone Care Team Providers Care Rehabilitation Services Manager Name Role Phone Unavailable Primary Care [...] [facility]ty [facility] Card[facility] [address] [place] [address] Denae Mckeon MD [address] [place] [address] Scheduled Discharge Disposition: Discharged to home or self care 01/01/2024 2:00 PM CHERRY PITTER Office Visit Transplant Program [address] [place] [address] [place] [address] Ning Leiva MD [address] [place] [address] Scheduled Discharge Disposition: Discharged to home or self care documented as of this encounter Visit Diagnoses Not on filedocumented in this encounter
--- OUTSIDE RECORDS SUMMARY | 2023-12-12 10:36 | XMS_ITS | Encounter Summary ---
Author Organization [facility] Address [address] [place] [address] Phone Care Team Providers Care Accounting Administrative Assistant Name Role Phone Unavailable Primary Care Provider Unavailabl e Reason for Visit * Prior Authorization (Routine) - Closed Specialty Diagnoses / Procedures Referred By Contac t Referred To Contact CARDIOLOGY ECHO LAB Diagnoses Encounter for other preprocedural examination KIDA Echo and EKG. Diagnoses Pre-Transplant Evaluation For Esrd (End Stage Renal Disease) [Z01.818] Procedures LA ECHO TTHRC R-T 2D W/WO M-MODE REST&STRS CONT ECG LA ECG ROUTINE ECG W/LEAST 12 LDS W/I&R LA ECG ROUTINE ECG W/LEAST 12 LDS TRCG ONLY W/O I&R Echo Lab 701 [facility] [address] [place] [address] Referral ID Status Reason Start Date Expiration Date Visits Re quested Visits Authorized [id number] Closed 2 2 Encounter Details Date Type Department Care Team (Latest Contact Info) Description 11/20/2023 9:57 AM CDT - 11/20/2023 11:59 PM CDT Hospital Encounter [facility] EKG 701 [facility] [address] [place], [place] [phone] Blayne Quiroz MD 701 [facility] S5 [place] [address] Drilling Fluids Specialist, Ekg [address] [place] [address] Discharge Disposition: Discharged to home or self [...] [facility] Specialty Center Cardiology Clinic [address] [place] [address] Denae Mckeon MD [address] [place], [place] [address] Scheduled Discharge Disposition: Discharged to home or self care 01/01/2024 2:00 PM PLASTIC SHEETS SUPERVISOR Office Visit Transplant Program [address] [place] [address] Ning Leiva MD [address] [address] Scheduled Discharge Disposition: Discharged to home or self care documented as of this encounter Procedures Procedure Name Priority Date/Time Associated Diagnosis Comments EKG ADULT (12-LEAD) Routine 11/20/2023 1 0:46 AM CDT Pre-transplant evaluation for ESRD (end stage renal disease) documented in this encounter Results * EKG ADULT (12-LEAD) (11/20/2023 10:46 AM CDT) 11/20/2023 10:4 6 AM CDT Impressions [facility] EKG ORDERS - 11/20/2023 10:46 AM CDT SINUS RHYTHM NORMAL ECG No previous ECG available for comparison. P-R Interval 174 ms QRS Interval 93 ms QT Interval 367 ms QTC Interval 409 ms P Sutherland 46 QRS Sutherland 61 T Wave Sutherland 68 Narrative Procedure Note Jean Liu MD - 11/20/2023 IMPRESSION SINUS RHYTHM NORMAL ECG No previous ECG available for comparison. P-R Interval 174 ms QRS Interval 93 ms QT Interval 367 ms QTC Interval 409 ms P Sutherland 46 QRS Sutherland 61 T Wave Sutherland 68 Blayne Quiroz MD EKG [facility] EKG ORDERS documented in this encounter Visit Diagnoses Diagnosis Pre-transplant evaluation for ESRD (end stage renal disease) Other specified pre-operative examination documented in this encounter
--- OUTSIDE RECORDS SUMMARY | 2023-12-12 10:36 | XMS_ITS | Encounter Summary ---
Author Organization [facility] Address 1 [facility] [place] [address] Phone Care Team Providers Care Safety Leader Name Role Phone Unavailable Primary Care Provider Unavailabl e Reason for Referral * Consult/Test/Treat (Routine) - New Request Specialty Diagnoses / Procedures Referred By Amanda t Referred To Contact Infectious Diseases / INFECTIOUS DISEASES Diagnoses Pre-transplant evaluation for ESRD (end stage renal disease) Neva Carbajal MBBS 701 [facility] [address] [place] [address] Referral ID Status Reason Start Date Expiration Date V isits Requested Visits Authorized [id number] New Request 11/22/2023 11/22/2024 1 1 Encounter Details Date Type Department Care Team (Late Contact Info) Description 11/22/2023 Orders Only Transplant Program [address] [place] [address] [address] [place] [address] Chinyere Valencia, OLGA LIDIA [facility] 701 [place] [address] Pre-transplant evaluation for ESRD (end stage renal [...] [facility]ty Center Cardiology Clinic [address] [address] Denae Mckeon MD [address] [facility] [place] [address] Scheduled Discharge Disposition: Discharged to home or self care 01/01/2024 2:00 PM MASON TENDER Office Visit Transplant Program 701 [facility] [address] [place] [address] Ning Leiva MD 701 [facility] [place] [address] Scheduled Discharge Disposition: Discharged to home or [...]
--- OUTSIDE RECORDS SUMMARY | 2023-12-12 10:36 | XMS_ITS | Encounter Summary ---
Author Organization [facility] Address [address] [place] [address] Phone Care Team Providers Care Quality Systems Technician Name Role Phone Unavailable Primary Care Provider Unavailabl e Encounter Details Date Type Department Care Team (Latest Contact Info) Description 11/20/2023 12:29 PM CDT - 11/20/2023 11:59 PM CDT Hospital Encounter [facility] [address] [place], [place] [phone] Blayne Quiroz MD [address] [phone] Discharge Disposition: Discharged to home or self [...] Clinic [facility]ty Center Cardiology Clinic [address] [address] Denae Mckeon MD 701 [facility] O5 [place] [address] Scheduled Discharge Disposition: Discharged to home or self care 01/01/2024 2:00 PM SECRETARY OFFICE CLERK Office Visit Transplant Program 701 [facility] [address] [place] [address] Ning Leiva MD 701 [facility] G5 [place] [address] Scheduled Discharge Disposition: Discharged to home or [...]
--- OUTSIDE RECORDS SUMMARY | 2023-12-12 10:36 | XMS_ITS | Encounter Summary ---
Author Organization [facility] Address 701 [facility] [place] [address] Phone Care Team Providers Care 21 Dealer Name Role Phone Unavailable Primary Care Provider Unavailabl e Reason for Visit * Reason Comments Pre Kidney Transplant Evaluation Encounter Details Date Type Department Care Team (Late st Contact Info) Description 11/20/2023 2:30 PM CDT Nurse Only Transplant Program 701 [facility] [address] [place], [place] [phone] Neva Carbajal MBBS 701 [facility] [address] [place], [place] [phone] RnCail-Pre Recipient Chronic kidney disease (Primary Dx) Discharge [...] and have labs drawn. Also meeting with gas line servicer. Discussed when labs results would be returned. Chinyere Valencia RN, 11/20/2023 2:25 PM documented in this encounter Miscellaneous Notes * Transplant Care Plan - Chinyere Valencia RN - 11/20/2023 2:30 PM CDT Transplant-Recipient Plan Transplant-Pre Care Plan Maco Stein Recipient Care Plan Pretransplant I) Referral received by financial retirement plan specialist from Nephrologists, dialysis unit or patient. II) Patient scheduled to attend information session. III) Patient attends information session which includes Muffler Tender, Transplant Gravity Flow Irrigator, Treating Plant Pumper, Living Donor Coordinator, Transplant Surgeon, Industrial Pipefitter Journeyman, and Collateral Specialist Discussed the following with potential transplant candidate and their family members: IV) A) Advantages and disadvantages of transplant V) B) Possible complications post transplant ) C)Medications and their side effects VII) D) Hospitalization and frequency of clinic visits post-op VIII) E) Requirement that all out-of-town patients remain in [facility] for at least 2 weeks [...] waitlisted, patient's name is placed on the [facility] kidney donor waitlist. Patient notification letter sent and if patient is predialysis arrangements are made for ALA levels to be drawn 2. Patient's Collateral Specialist notified 3. Patient's dialysis unit notified and [...] 2. Patient notification letter sent. 3. Patient???s Collateral Specialist notified 4. Patient???s dialysis unit notified Transplant-Recipient Plan Transplant-Pre Care Plan Maco PompashellyUnderwood WAITLIST MANAGEMENT I) Monthly Updates a. Brief summary of patient's transplant status sent out by the Transplant Clinic monthly to the dialysis unit or if predialysis to the Collateral Specialist. II) Semiannual Check Calls Patient contacted by phone by transplant meat team member to verify current: contact information, insurance, health [...] [facility]ty Center Cardiology Clinic [address] [address] Denae Mckeon MD [address] [place], [place] [address] Scheduled Discharge Disposition: Discharged to home or self care 01/01/2024 2:00 PM CLERK OPERATOR Office Visit Transplant Program [address] [place], [place] [address] Ning Leiva MD 701 [facility] [address] [place] [address] Scheduled Discharge Disposition: Discharged to home or [...] Donor, [place]as Screen Non Reactive Non Reactive [facility] Blood 11/20/2023 1:20 PM CDT 11/23/2023 11:23 AM CDT [facility] [address] [place] [address] * COCCIDIOIDES AB SCREEN WITH REFLEX (11/20/2023 1:20 PM CDT) Coccidioides Antibody Negative Negative [facility] Comment: Repeat testing on a new sample in 2-3 weeks if clinically indicated. ADDITIONAL INFORMATION This test has been modified from the envelope press operator's instructions. Its performance characteristics were determined by [facility] in a manner consistent with CLIA requirements. This test has not been cleared or approved by the U.S. Food and Drug Administration. Test Performed by: [facility] - [address] [address] White Spooler: Sawyer Alejandre Ph.D.; CLIA# [id number] Serum 11/20/2023 1:20 PM CDT 11/20/2023 2:24 PM CDT Narrative [facility] - 11/21/2023 8:16 PM CDT Bill to Corporate Kidney Acquisition Account Neva Carbajal [facility] [address] [place] [address] * (ABNORMAL) QUANTIFERON-TB GOLD PLUS (11/20/2023 1:20 PM CDT) QuantiFERON TB Gold Plus Positive( A) Negative [facility] QFT TB 1 0.19 [facility] QFT TB 2 0.35 [facility] Q[facility] TB MITOGEN 9.94 [facility] QFT NIL 0.06 [facility] Blood 11/20/2023 1:20 PM CDT 11/22/2023 7:34 AM CDT Narrative [facility] - 11/22/2023 10:36 AM CDT Bill to Corporate Kidney Acquisition ??Account [facility] [address] [address] * HEPATITIS B CORE TOTAL BHAKTI (11/20/2023 1:20 PM CDT) HBV Core Total Bhakti Nonreactive Nonreactive [facility] Blood 11/20/2023 1:20 PM CDT 11/20/2023 3:41 PM CDT Narrative [facility] - 11/20/2023 4:11 PM CDT Bill to Corporate Kidney Acquisition Account [facility] [address] [address] * MEASLES VIRUS (RUBEOLA) ANTIBODY, IGG (11/20/2023 1:20 PM CDT) Measles Ab, IgG Index 116.00 AU/ml [facility] Measles Ab, IgG Positive [facility] Comment:Positive results (>= 16.5) indicate current or past exposure to Measles virus or prior immunization. Blood 11/20/2023 1:20 PM CDT 11/20/2023 2:24 PM CDT Narrative [facility] - 11/21/2023 9:03 AM CDT Bill to Corporate Kidney Acquisition ??Account [facility] Performing Organization Address City/[facility]/ZIP Co de Phone Number [facility] [address] [address] * RPR SYPHILIS SCREEN (11/20/2023 1:20 PM CDT) RPR Screen Non-Reactive Non-Reacti ve [facility] RPR Titer Not Reflexed [facility] Blood 11/20/2023 1:20 PM CDT 11/21/2023 10:14 AM CDT Narrative [facility] - 11/21/2023 11:32 AM CDT Bill to Corporate Kidney Acquisition ??Account [facility] [address] [address] * (ABNORMAL) EBV VCA IGG (11/20/2023 1:20 PM CDT) EBV Ab VCA IGG >750.0(H) 0.0 - 21.9 U/mL [facility] Comment: INTERPRETIVE INFORMATION: Parveen-Monsalve Virus Antibody to ?Viral Capsid Antigen, IgG ??17.9 U/mL or less.......Not Detected ??18.0-21.9 U/mL..........Indeterminate - Repeat testing in ?10-14 days may be helpful. ??22.0 U/mL or greater....Detected Performed By: [facility] [address] [place] [address] Interface Designer: Salinas Prajapati MD, PhD CLIA Number: [id number] PARVEEN-MONSALVE VIRUS ANTIBODY TO VIRAL CAPSID ANTIGEN IGG REFERENCE INTERVAL: EFFECTIVE 10/11/09 NEGATIVE: ??17.9 U/ML OR LESS EQUIVOCAL: 18.0 - 21.9 U/ML POSITIVE: ??22.0 U/ML OR GREATER Serum 11/20/2023 1:20 PM CDT 11/20/2023 2:24 PM CDT Narrative [facility] - 11/21/2023 7:21 PM CDT Bill to Corporate Kidney Acquisition ??Account [facility] [address] [place] [address], * VARICELLA-ZOSTER VIRUS (VZV) ANTIBODY, IGG (11/20/2023 1:20 PM CDT) Pathologist [facility] VZV Ab, IgG Positive [facility] Comment:Positive results ind icate current or past exposure to Varicella-Zoster virus or prior immunization. Blood 11/20/2023 1:20 PM CDT 11/20/2023 2:24 PM CDT Narrative [facility] - 11/21/2023 9:03 AM CDT Bill to Corporate Kidney Acquisition ??Account [facility] [address] [address] * PHOSPHORUS (11/20/2023 1:20 PM CDT) Phosphorus 3.6 2.5 - 4.5 mg/dL [facility] Blood 11/20/2023 1:20 PM CDT 11/20/2023 2:24 PM CDT Narrative [facility] - 11/20/2023 2:49 PM CDT Bill to Corporate Kidney Acquisition ??Account [facility] Performing Organization Address [facility]/ZIP Co de Phone Number [facility] [address] [address] * HIV COMBO (11/20/2023 1:20 PM CDT) HIV Antigen-Antibody Nonreactive Nonreactive [facility] Comment:Performance characte ristics have not been established with this test on patients less than 2 years of age. Blood 11/20/2023 1:20 PM CDT 11/20/2023 2:24 PM CDT Narrative [facility] - 11/20/2023 3:20 PM CDT Bill to Corporate Kidney Acquisition Account [facility] Performing Organization Address City/[facility]/ZIP Co de Phone Number [facility] [address] [address] * HEPATITIS C ANTIBODY (11/20/2023 1:20 PM CDT) Hep C Bhakti Nonreactive Nonreactive [facility] Comment:Performance characte ristics have not been established with this test on patients less than 10 years of age. Blood 11/20/2023 1:20 PM CDT 11/20/2023 2:24 PM CDT Narrative [facility] - 11/20/2023 3:19 PM CDT Bill to Corporate Kidney Acquisition ??Account [facility] [address] [address] * HEPATITIS B SURFACE ANTIGEN (11/20/2023 1:20 PM CDT) HBV Surface Ag Nonreactive Nonreactive [facility] Comment: Testing performed at: [facility] [address] [address] Blood 11/20/2023 1:20 PM CDT 11/20/2023 2:24 PM CDT Narrative [facility] - 11/20/2023 3:19 PM CDT Bill to Corporate Kidney Acquisition ??Account [facility] Performing Organization Address [facility] Co de Phone Number [facility] [address] [address] * HEPATITIS B SURFACE ANTIBODY (11/20/2023 1:20 PM CDT) HBsAb Quant 83.42 mIU/ml [facility] Comment: The Hepatitis B Surface Antibody quantitation is greater than or equal to 12.00 mIU/mL. This patient has either had an antibody response to a hepatitis B vaccination, received a transfusion or has recovered from a hepatitis B infection. This patient should be considered immune to hepatitis B. HBsAb Interpretation Reactive [facility] Blood 11/20/2023 1:20 PM CDT 11/20/2023 2:24 PM CDT Narrative [facility] - 11/20/2023 3:19 PM CDT Bill to Corporate Kidney Acquisition ??Account [facility] Performing Organization Address City/[facility]/ZIP Co de Phone Number [facility] [address] [address] * PTT (APTT) (11/20/2023 1:20 PM CDT) APTT 33.4 25.0 - 37.0 sec [facility] Blood 11/20/2023 1:20 PM CDT 11/20/2023 2:25 PM CDT Narrative [facility] - 11/20/2023 2:54 PM CDT Bill to Corporate Kidney Acquisition Account [facility] [address] [address] * PROTHROMBIN (PT) & INR (11/20/2023 1:20 PM CDT) PT 11.6 9.0 - 12.5 sec [facility] INR 1.0 0.8 - 1.1 [facility] Comment: Warfarin Therapeutic Range: Standard Intensity: 2.0 - 3.0 High Intensity: 2.5 - 3.5 Blood 11/20/2023 1:20 PM CDT 11/20/2023 2:25 PM CDT Narrative [facility] - 11/20/2023 2:54 PM CDT Bill to Corporate Kidney Acquisition Account [facility] Performing Organization Address [facility] Co de Phone Number [facility] [address] [address] * GGT (11/20/2023 1:20 PM CDT) GGT 13 10 - 71 IU/L [facility] Blood 11/20/2023 1:20 PM CDT 11/20/2023 2:24 PM CDT Narrative [facility] - 11/20/2023 2:49 PM CDT Bill to Corporate Kidney Acquisition ??Account [facility] Performing Organization Address City/[facility]/ZIP Co de Phone Number [facility] [address] [address] * (ABNORMAL) CBC WITH PLTS/AUTO DIFF (11/20/2023 1:20 PM CDT) WBC 4.75 4.00 - 10.00 k/cmm [facility] RBC 2.54(L) 4.60 - 6.00 m/cmm [facility] Hgb 8.4(L) 13.1 - 17.5 g/dL [facility] Hematocrit 24.7(L) 40.0 - 51.0 % [facility] MCV 97.2 80.0 - 100.0 fL [facility] MCH 33.1(H) 25.0 - 32.0 pg [facility] MCHC 34.0 31.0 - 36.0 g/dL [facility] RDW 14.5 11.5 - 14.5 % [facility] Plt 92(L) 150 - 400 k/cmm [facility] MPV 11.6 6.5 - 12.5 fL [facility] Automated Abs Neutrophil 3.10 1.70 - 6.50 k/cmm [facility] Comment:Preliminary ANC, Fin al Result to Follow Abs Immature Granulocyte 0.01 0.00 - 0.09 k/cmm [facility] Comment:The Immature Granulo cyte Absolute count contains metamyelocytes and myelocytes. Abs Neutrophil 3.10 1.70 - 6.50 k/cmm [facility] Abs Lymphocyte 1.09 0.80 - 4.00 k/cmm [facility] Abs Monocyte 0.41 0.20 - 1.00 k/cmm [facility] Abs Eosinophil 0.13 0.00 - 0.60 k/cmm [facility] Abs Basophil 0.01 0.00 - 0.20 k/cmm [facility] Blood 11/20/2023 1:20 PM CDT 11/20/2023 2:24 PM CDT Narrative [facility] - 11/20/2023 2:35 PM CDT Bill to Corporate Kidney Acquisition ??Account [facility] [address] [place] [address] * CALCIUM, TOTAL (11/20/2023 1:20 PM CDT) Calcium 8.6 8.6 - 10.0 mg/dL [facility] Blood 11/20/2023 1:20 PM CDT 11/20/2023 2:24 PM CDT Narrative [facility] - 11/20/2023 2:49 PM CDT Bill to Corporate Kidney Acquisition ??Account [facility] [address] [address] * BLOOD TYPING-ABO/RH (11/20/2023 1:20 PM CDT) ABORHG O POS [facility] Blood 11/20/2023 1:20 PM CDT 11/20/2023 2:29 PM CDT Narrative [facility] - 11/20/2023 3:06 PM CDT Bill to Corporate Kidney Acquisition ??Account [facility] TRANSFUSION SER VICES Performing Organization Address [facility] Co de Phone Number [address] [address] * BILIRUBIN, TOTAL (ONLY) (11/20/2023 1:20 PM CDT) Bili Total 0.5 <=1.2 mg/dL [facility] Blood 11/20/2023 1:20 PM CDT 11/20/2023 2:24 PM CDT Narrative [facility] - 11/20/2023 2:49 PM CDT Bill to Corporate Kidney Acquisition ??Account [facility] Performing Organization Address City/[facility]/ZIP Co de Phone Number [address] [address] * AST (SGOT) (11/20/2023 1:20 PM CDT) AST(SGOT) 15 5 - 40 IU/L [facility] Blood 11/20/2023 1:20 PM CDT 11/20/2023 2:24 PM CDT Narrative [facility] - 11/20/2023 2:49 PM CDT Bill to Corporate Kidney Acquisition ??Account [facility] [address] [address] * ALT (SGPT) (11/20/2023 1:20 PM CDT) ALT (SGPT) 9 <=41 IU/L [facility] Blood 11/20/2023 1:20 PM CDT 11/20/2023 2:24 PM CDT Narrative [facility] - 11/20/2023 2:49 PM CDT Bill to Corporate Kidney Acquisition ??Account [facility] Performing Organization Address City/[facility]/ZIP Co de Phone Number [facility] [address] [address] * ALKALINE PHOSPHATASE (11/20/2023 1:20 PM CDT) Alk Phos 118 40 - 129 IU/L [facility] Comment:No reference range e stablished for patients <18 years old. Blood 11/20/2023 1:20 PM CDT 11/20/2023 2:24 PM CDT Narrative [facility] - 11/20/2023 2:49 PM CDT Bill to Corporate Kidney Acquisition ??Account [facility] [address] [address] * ALBUMIN (11/20/2023 1:20 PM CDT) Albumin 4.3 3.8 - 5.1 g/dL [facility] Blood 11/20/2023 1:20 PM CDT 11/20/2023 2:24 PM CDT Narrative [facility] - 11/20/2023 2:49 PM CDT Bill to Corporate Kidney Acquisition ??Account [facility] [address] [place] [address] documented in this encounter Visit Diagnoses Diagnosis Chronic kidney disease- Primary Chronic kidney disease, unspecified documented in this encounter
--- OUTSIDE RECORDS SUMMARY | 2023-12-12 10:36 | XMS_ITS | Encounter Summary ---
Author Organization [facility] Address [address] [place] [address] Phone Care Team Providers Care Utilization Review Specialist Name Role Phone Unavailable Primary Care Provider Unavailabl e Encounter Details Date Type Department Care Team (Late st Contact Info) Description 11/21/2023 Abstract Transplant Program [address] [place] [address] [address] [place] [address] Chinyere Valencia RN [facility] [address] [place] [address] Social History Tobacco Use Types Packs/Day Years [...] Clinic & Specialty Center Cardiology Clinic [address] [address] Denae Mckeon MD [address] [place] [address] [address] [place] [address] Scheduled Discharge Disposition: Discharged to home or self care 01/01/2024 2:00 PM RURAL SERVICE ENGINEER Office Visit Transplant Program [address] [place] [address] [address] [place] [address] Ning Leiva MD 701 [facility] G[address] [place] [address] Scheduled Discharge Disposition: Discharged to home or self care documented as of this encounter Visit Diagnoses Not on filedocumented in this encounter
--- OUTSIDE RECORDS SUMMARY | 2023-12-12 10:36 | XMS_ITS | Clinical Summary ---
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 Last update 07/31/08.[employer] Allergies Active Allergy Reactions Criticality Noted Date [...] to chronic kidney disease, on chronic dialysis ([facility]) 10/13/2022 Anxiety 10/13/2022 HTN (hypertension) 09/15/2022 Diabetes mellitus ([facility]) 01/27/2002 Encounters Date Type Department Care Team Description 11/22/2023 Orders Only Transplant Program [address] [place] [address] Chinyere Valencia RN Pre-transplant evaluation for ESRD (end stage renal disease) (Primary Dx) 11/21/2023 Abstract Transplant Program [address] [place] [address] Chinyere Valencia RN 11/20/2023 2:30 PM CDT Nurse Only Transplant Program [address] [place] [address] Neva Carbajal MBBS Rn, [facility]-Pre Recipient Chronic kidney disease (Primary Dx) Discharge Disposition: Discharged to home or self care 11/20/2023 1:30 PM CDT Office Visit Transplant Program [address] [place] [address] Neva Carbajal MBBS Gjesvold, Donna E, RD, LD Encounter for pre-transplant evaluation for kidney transplant (Primary Dx) Discharge Disposition: Discharged to home or self care 11/20/2023 12:29 PM CDT - 11/20/2023 11:59 PM CDT Hospital Encounter [facility] XRAY [address] [place] [address] Blayne Quiroz MD Discharge Disposition: Discharged to home or self care 11/20/2023 12:08 PM CDT - 11/20/2023 11:59 PM CDT Hospital Encounter [facility] CT [address] [place] [address] Blayne Quiroz MD Discharge Disposition: Discharged to home or self care 11/20/2023 9:57 AM CDT - 11/20/2023 11:59 PM CDT Hospital Encounter [facility] EKG [address] [place] [address] Blayne Quiroz MD Collision Worker, Ekg Discharge Disposition: Discharged to home or self care 11/20/2023 9:55 AM CDT - 11/20/2023 11:59 PM CDT Hospital Encounter [facility] Echo Lab [address] [place] [address] Blayne Quiroz MD Alvarado, Michelle, AMMONIA BOX OPERATOR Jerel Pena, tray service worker Disposition: Discharged to home or self care 11/20/2023 Travel 11/01/2023 Documentation Only Transplant Program [address] [place] [address] Williams Lindquist Transplant Bee Farmer 10/03/2023 Documentation Only Transplant Program [address] [place] [address] Williams Lindquist Transplant Bee Farmer 09/26/2023 Abstract Transplant Program [address] [place] [address] Williams Lindquist Transplant Bee Farmer from Last 3 Months Social History Tobacco [...] [facility] [address] [address] Denae Mckeon MD [address] [facility] [address] [place] [address] Scheduled Discharge Disposition: Discharged to home or self care 01/01/2024 2:00 PM [employer] Office Visit Transplant Program [address] [facility] [address] [place] [address] Ning Leiva MD [address] [facility] [address] [place], [place] [address] Scheduled Discharge Disposition: Discharged to home or [...] Donor, Chagas Screen Non Reactive Non Reactive [facility] Blood 11/20/2023 1:20 PM CDT 11/23/2023 11:23 AM CDT [facility] Performing Organization Address City/[facility]/ZIP Co de Phone Number [employer] [address] [place] [address] * COCCIDIOIDES AB SCREEN WITH REFLEX (11/20/2023 1:20 PM CDT) Coccidioides Antibody Negative Negative [facility] [address] [facility] Comment: Repeat testing on a new sample in 2-3 weeks if clinically indicated. ADDITIONAL INFORMATION This test has been modified from the section plotter operator's instructions. Its performance characteristics were determined by [facility] in a manner consistent with CLIA requirements. This test has not been cleared or approved by the U.S. Food and Drug Administration. Test Performed by: [facility] - [address] [address] Renderer: Sawyer Alejandre Ph.D.; CLIA# [id number] Serum 11/20/2023 1:20 PM CDT 11/20/2023 2:24 PM CDT Narrative [facility] [employer] [facility] [place] [facility] - 11/21/2023 8:16 PM CDT Bill to Corporate Kidney Acquisition Account Neva Carbajal [facility] Performing Organization Address City/[facility]/ZIP Co de Phone Number [facility] [employer] [address] SUPPORT [facility]ENTR [address] [place] [phone] * (ABNORMAL) QUANTIFERON-TB GOLD PLUS (11/20/2023 1:20 PM CDT) Pathologist [facility] QuantiFERON TB Gold Plus Positive( A) Negative [facility] QFT TB 1 0.19 [facility] QFT TB 2 0.35 [facility] QFT TB MITOGEN 9.94 [facility] QFT NIL 0.06 [facility] Blood 11/20/2023 1:20 PM CDT 11/22/2023 7:34 AM CDT Narrative [facility] - 11/22/2023 10:36 AM CDT Bill to Corporate Kidney Acquisition ??Account [facility] [address] [address] * HIV COMBO (11/20/2023 1:20 PM CDT) [facility] HIV Antigen-Antibody Nonreactive Nonreactive [facility] Comment:Performance characte ristics have not been established with this test on patients less than 2 years of age. Blood 11/20/2023 1:20 PM CDT 11/20/2023 2:24 PM CDT Narrative [facility] - 11/20/2023 3:20 PM CDT Bill to Corporate Kidney Acquisition Account [facility] Performing Organization Address City/[facility]/ZIP Co de Phone Number [facility] [address] [address] * HEPATITIS B CORE TOTAL THEE (11/20/2023 1:20 PM CDT) Pathologist [facility] HBV Core Total Thee Nonreactive Nonreactive [facility] Blood 11/20/2023 1:20 PM CDT 11/20/2023 3:41 PM CDT Narrative [facility] - 11/20/2023 4:11 PM CDT Bill to Corporate Kidney Acquisition Account [facility] Performing Organization Address City/[facility]/ZIP Co de Phone Number [facility] [address] [address] * (ABNORMAL) CBC WITH PLTS/AUTO DIFF (11/20/2023 1:20 PM CDT) WBC 4.75 4.00 - 10.00 k/cmm [facility] RBC 2.54(L) 4.60 - 6.00 m/cmm [facility] Hgb 8.4(L) 13.1 - 17.5 g/dL [facility] Hematocrit 24.7(L) 40.0 - 51.0 % [facility] MCV 97.2 80.0 - 100.0 fL [facility] MCH 33.1(H) 25.0 - 32.0 pg [facility] MCHC 34.0 31.0 - 36.0 g/dL [facility] RDW 14.5 11.5 - 14.5 % [facility] Plt 92(L) 150 - 400 k/cmm [facility] MPV 11.6 6.5 - 12.5 fL [facility] Automated Abs Neutrophil 3.10 1.70 - 6.50 k/cmm [facility] Comment:Preliminary ANC, Fin al Result to Follow Abs Immature Granulocyte 0.01 0.00 - 0.09 k/cmm [facility] Comment:The Immature Granulo cyte Absolute count contains metamyelocytes and myelocytes. Abs Neutrophil 3.10 1.70 - 6.50 k/cmm [facility] Abs Lymphocyte 1.09 0.80 - 4.00 k/cmm [facility] Abs Monocyte 0.41 0.20 - 1.00 k/cmm [facility] Abs Eosinophil 0.13 0.00 - 0.60 k/cmm [facility] Abs Basophil 0.01 0.00 - 0.20 k/cmm [facility] Blood 11/20/2023 1:20 PM CDT 11/20/2023 2:24 PM CDT Narrative [facility] - 11/20/2023 2:35 PM CDT Bill to Corporate Kidney Acquisition ??Account [facility] [address] [place] [address] * VARICELLA-ZOSTER VIRUS (VZV) ANTIBODY, IGG (11/20/2023 1:20 PM CDT) VZV Ab, IgG Positive [facility] Comment:Positive results ind icate current or past exposure to Varicella-Zoster virus or prior immunization. Blood 11/20/2023 1:20 PM CDT 11/20/2023 2:24 PM CDT Narrative [facility] - 11/21/2023 9:03 AM CDT Bill to Corporate Kidney Acquisition ??Account [facility] Performing Organization Address City/[facility]/ZIP Co de Phone Number [facility] [address] [address] * MEASLES VIRUS (RUBEOLA) ANTIBODY, IGG (11/20/2023 1:20 PM CDT) Measles Ab, IgG Index 116.00 AU/ml [facility] Measles Ab, IgG Positive [facility] Comment:Positive results (>= 16.5) indicate current or past exposure to Measles virus or prior immunization. Blood 11/20/2023 1:20 PM CDT 11/20/2023 2:24 PM CDT Narrative [facility] - 11/21/2023 9:03 AM CDT Bill to Corporate Kidney Acquisition ??Account [facility] Performing Organization Address [facility] Co de Phone Number [facility] [address] [address] * RPR SYPHILIS SCREEN (11/20/2023 1:20 PM CDT) RPR Screen Non-Reactive Non-Reacti ve [facility] RPR Titer Not Reflexed [facility] Blood 11/20/2023 1:20 PM CDT 11/21/2023 10:14 AM CDT Narrative [facility] - 11/21/2023 11:32 AM CDT Bill to Corporate Kidney Acquisition ??Account [facility] [address] [address] * PROTHROMBIN (PT) & INR (11/20/2023 1:20 PM CDT) PT 11.6 9.0 - 12.5 sec [facility] INR 1.0 0.8 - 1.1 [facility] Comment: Warfarin Therapeutic Range: Standard Intensity: 2.0 - 3.0 High Intensity: 2.5 - 3.5 Blood 11/20/2023 1:20 PM CDT 11/20/2023 2:25 PM CDT Narrative [facility] - 11/20/2023 2:54 PM CDT Bill to Corporate Kidney Acquisition Account [facility] [address] [address] * PHOSPHORUS (11/20/2023 1:20 PM CDT) Pathologist [facility] Phosphorus 3.6 2.5 - 4.5 mg/dL [facility] Blood 11/20/2023 1:20 PM CDT 11/20/2023 2:24 PM CDT Narrative [facility] - 11/20/2023 2:49 PM CDT Bill to Corporate Kidney Acquisition ??Account [facility] [address] [address] * HEPATITIS C ANTIBODY (11/20/2023 1:20 PM CDT) Hep C Thee Nonreactive Nonreactive [facility] Comment:Performance characte ristics have not been established with this test on patients less than 10 years of age. Blood 11/20/2023 1:20 PM CDT 11/20/2023 2:24 PM CDT Narrative [facility] - 11/20/2023 3:19 PM CDT Bill to Corporate Kidney Acquisition ??Account [facility] Performing Organization Address City/[facility]/ZIP Co de Phone Number [facility] [address] [address] * HEPATITIS B SURFACE ANTIGEN (11/20/2023 1:20 PM CDT) HBV Surface Ag Nonreactive Nonreactive [facility] Comment: Testing performed at: [facility] [address] [address] Blood 11/20/2023 1:20 PM CDT 11/20/2023 2:24 PM CDT Narrative [facility] - 11/20/2023 3:19 PM CDT Bill to Corporate Kidney Acquisition ??Account [facility] Performing Organization Address [facility] Co de Phone Number [address] [address] * HEPATITIS B SURFACE ANTIBODY (11/20/2023 1:20 PM CDT) HBsAb Quant 83.42 mIU/ml [facility] Comment: The Hepatitis B Surface Antibody quantitation is greater than or equal to 12.00 mIU/mL. This patient has either had an antibody response to a hepatitis B vaccination, received a transfusion or has recovered from a hepatitis B infection. This patient should be considered immune to hepatitis B. HBsAb Interpretation Reactive [facility] Blood 11/20/2023 1:20 PM CDT 11/20/2023 2:24 PM CDT Narrative [facility] - 11/20/2023 3:19 PM CDT Bill to Corporate Kidney Acquisition ??Account [facility] Performing Organization Address City/[facility]/ZIP Co de Phone Number [facility] [address] [address] * GGT (11/20/2023 1:20 PM CDT) GGT 13 10 - 71 IU/L [facility] Blood 11/20/2023 1:20 PM CDT 11/20/2023 2:24 PM CDT Narrative [facility] - 11/20/2023 2:49 PM CDT Bill to Corporate Kidney Acquisition ??Account [facility] [address] [place] [address] * (ABNORMAL) EBV VCA IGG (11/20/2023 1:20 PM CDT) EBV Ab VCA IGG >750.0(H) 0.0 - 21.9 U/mL [employer] [facility] Comment: INTERPRETIVE INFORMATION: Parveen-Monsalve Virus Antibody to ?Viral Capsid Antigen, IgG ??17.9 U/mL or less.......Not Detected ??18.0-21.9 U/mL..........Indeterminate - Repeat testing in ?10-14 days may be helpful. ??22.0 U/mL or greater....Detected Performed By: [facility] [address] [place] [address] Production Quality Analyst: Salinas Prajapati MD, PhD CLIA Number: [id number] PARVEEN-MONSALVE VIRUS ANTIBODY TO VIRAL CAPSID ANTIGEN IGG REFERENCE INTERVAL: EFFECTIVE 10/11/09 NEGATIVE: ??17.9 U/ML OR LESS EQUIVOCAL: 18.0 - 21.9 U/ML POSITIVE: ??22.0 U/ML OR GREATER Serum 11/20/2023 1:20 PM CDT 11/20/2023 2:24 PM CDT Narrative [email or web address] - 11/21/2023 7:21 PM CDT Bill to Corporate Kidney Acquisition ??Account [facility] Performing Organization Address City/[facility]/ZIP Co de Phone Number [employer] [facility] [address] [place] [address], * CALCIUM, TOTAL (11/20/2023 1:20 PM CDT) Calcium 8.6 8.6 - 10.0 mg/dL [facility] Blood 11/20/2023 1:20 PM CDT 11/20/2023 2:24 PM CDT Narrative [facility] - 11/20/2023 2:49 PM CDT Bill to Corporate Kidney Acquisition ??Account [facility] [address] [address] * BILIRUBIN, TOTAL (ONLY) (11/20/2023 1:20 PM CDT) Bili Total 0.5 <=1.2 mg/dL [facility] Blood 11/20/2023 1:20 PM CDT 11/20/2023 2:24 PM CDT Narrative [facility] - 11/20/2023 2:49 PM CDT Bill to Corporate Kidney Acquisition ??Account [facility] Performing Organization Address City/[facility]/ZIP Co de Phone Number [facility] [address] [address] * AST (SGOT) (11/20/2023 1:20 PM CDT) AST(SGOT) 15 5 - 40 IU/L [facility] Blood 11/20/2023 1:20 PM CDT 11/20/2023 2:24 PM CDT Narrative [facility] - 11/20/2023 2:49 PM CDT Bill to Corporate Kidney Acquisition ??Account [facility] Performing Organization Address City/[facility]/ZIP Co de Phone Number [facility] [address] [address] * PTT (APTT) (11/20/2023 1:20 PM CDT) APTT 33.4 25.0 - 37.0 sec [facility] Blood 11/20/2023 1:20 PM CDT 11/20/2023 2:25 PM CDT Narrative [facility] - 11/20/2023 2:54 PM CDT Bill to Corporate Kidney Acquisition Account [facility] [address] [address] * ALT (SGPT) (11/20/2023 1:20 PM CDT) Pathologist [facility] ALT (SGPT) 9 <=41 IU/L [facility] Blood 11/20/2023 1:20 PM CDT 11/20/2023 2:24 PM CDT Narrative [facility] - 11/20/2023 2:49 PM CDT Bill to Corporate Kidney Acquisition ??Account [facility] Performing Organization Address [facility] Co de Phone Number [facility] [address] [address] * ALKALINE PHOSPHATASE (11/20/2023 1:20 PM CDT) Alk Phos 118 40 - 129 IU/L [facility] Comment:No reference range e stablished for patients <18 years old. Blood 11/20/2023 1:20 PM CDT 11/20/2023 2:24 PM CDT Narrative [facility] - 11/20/2023 2:49 PM CDT Bill to Corporate Kidney Acquisition ??Account [facility] Performing Organization Address City/[facility]/ZIP Co de Phone Number [facility] [address] [address] * ALBUMIN (11/20/2023 1:20 PM CDT) Albumin 4.3 3.8 - 5.1 g/dL [facility] Blood 11/20/2023 1:20 PM CDT 11/20/2023 2:24 PM CDT Narrative [facility] - 11/20/2023 2:49 PM CDT Bill to Corporate Kidney Acquisition ??Account [facility] Performing Organization Address City/[facility]/ZIP Co de Phone Number [address] [address] * BLOOD TYPING-ABO/RH (11/20/2023 1:20 PM CDT) ABORHG O POS [facility] Blood 11/20/2023 1:20 PM CDT 11/20/2023 2:29 PM CDT Narrative [facility] - 11/20/2023 3:06 PM CDT Bill to Corporate Kidney Acquisition ??Account [facility]a [facility] TRANSFUSION [employer] Performing Organization Address City/[facility]/ZIP Co de Phone Number [facility] [address] [address] * XR CHEST 2 VIEWS PA + [...] Blayne CARIAS CT BODY * [facility] EXERCISE STRESS ECHO COMPLETE WITH CONTRAST [...] ? 67.01 Inches MACO Patient Number ?? [id number] ?Weight ? 205 Pounds Date of ?1980 ? BSA ?2.04 m^2 Age ?43 ? Tape Number: Gender ? Male ? Study Date ? 11/20/2023 10:51 AM Operations Technician ?MA ? Ordering Provider ??CORBY CARUSO Referring ? Interpreting ? Hue Flynn MD Physician ? Physician ?[id number] Type of Study: Stress procedure: [facility] EXERCISE STRESS ECHO, Color Doppler, Spectral Doppler [...] HR: 176 bpm ? HR BP Product: 44748 % of predicted HR: 62 ? Max [...] EMIL Height 67.01 Inches MACO Patient Number [id number] Weight 205 Pounds Date of 1980 BSA 2.04 m^2 Age 43 Tape Number: Gender Male Study Date 11/20/2023 10:51 AM Operations Technician MA Ordering Provider CORBY CARUSO Referring Interpreting Hue Flynn MD Physician Physician [id number] Type of Study: Stress procedure: ECH EXERCISE [...] Quiroz MD RAD ECHO Performing Organization Address [facility] Co de Phone Number [facility] * EKG ADULT (12-LEAD) (11/20/2023 10:46 AM CDT) 11/20/2023 10:4 6 AM CDT Impressions [facility] CVIS EKG ORDERS - 11/20/2023 10:46 AM CDT SINUS RHYTHM NORMAL ECG No previous ECG available for comparison. P-R Interval 174 ms QRS Interval 93 ms QT Interval 367 ms QTC Interval 409 ms P [place] 46 QRS [place] 61 T Wave [place] 68 Narrative Procedure Note Jean Liu MD - 11/20/2023 IMPRESSION SINUS RHYTHM NORMAL ECG No previous ECG available for comparison. P-R Interval 174 ms QRS Interval 93 ms QT Interval 367 ms QTC Interval 409 ms P [place] 46 QRS [place] 61 T Wave [place] 68 Blayne Quiroz MD EKG [facility] CVIS EKG ORDERS from Last 3 Months CORPORATE,KIDNEY ACQUISITION COST-CURRENT NEW Corporate Other 05/26/2020 Attn Williams Lindquist [facility] [address] [place] [address]
--- OUTSIDE RECORDS SUMMARY | 2023-12-12 10:36 | XMS_ITS | Referral Summary ---
Author Organization [facility] Address [address] [place] [address] Phone Care Team Providers Care Model Photographers' Name Role Phone Unavailable Primary Care Provider Unavailabl e Source Comments Youj[employer] is fully rolled out on [employer]. Last update 07/31/08.Issue Encounters Date Type Department Care Team Description 11/22/2023 Orders Only Transplant Program [address] [place] [address] Chinyere Valencia, OLGA LIDIA Pre-transplant evaluation for ESRD (end stage renal disease) (Primary Dx) 11/21/2023 Abstract Transplant Program [address] [place] [address] Chinyere Valencia RN 11/20/2023 9:57 AM CDT - 11/20/2023 11:59 PM CDT Hospital Encounter [facility] EKG [address] [place] [address] Blayne Quiroz MD Timber Girdler, Ekg Discharge Disposition: Discharged to home or self care 11/20/2023 Travel 11/20/2023 2:30 PM CDT Nurse Only Transplant Program [address] [place] [address] Neva Carbajal MBBS Rn, [facility]-Pre Recipient Chronic kidney disease (Primary Dx) Discharge Disposition: Discharged to home or self care 11/20/2023 1:30 PM CDT Office Visit Transplant Program [address] [place] [address] Neva Carbajal MBBS Gjesvold, Donna E, RD, LD Encounter for pre-transplant evaluation for kidney transplant (Primary Dx) Discharge Disposition: Discharged to home or self care 11/20/2023 12:29 PM CDT - 11/20/2023 11:59 PM CDT Hospital Encounter [facility] XRAY [address] [place] [address] Blayne Quiroz MD Discharge Disposition: Discharged to home or self care 11/20/2023 12:08 PM CDT - 11/20/2023 11:59 PM CDT Hospital Encounter [facility] CT [address] [place] [address] Blayne Quiroz MD Discharge Disposition: Discharged to home or self care 11/20/2023 9:55 AM CDT - 11/20/2023 11:59 PM CDT Hospital Encounter [facility] Echo Lab [address] [place] [address] Blayne Quiroz MD Alvarado, Michelle, PIGMENT MAKING SUPERVISOR Jerel Pena, field hauler Disposition: Discharged to home or self care 11/01/2023 Documentation Only Transplant Program [address] [place] [address] Williams Lindquist Transplant System Operator 10/03/2023 Documentation Only Transplant Program [address] [place] [address] Williams Lindquist Transplant System Operator 09/26/2023 Abstract Transplant Program [address] [place] [address] Williams Lindquist Transplant System Operator from Last 3 Months Allergies Active Allergy [...] to chronic kidney disease, on chronic dialysis ([facility]) 10/13/2022 Anxiety 10/13/2022 HTN (hypertension) 09/15/2022 Diabetes mellitus ([facility]) 01/27/2002 Social History Tobacco Use Types [...] [facility] [address] [address] Denae Mckeon MD [address] [facility] [address] [place] [address] Scheduled Discharge Disposition: Discharged to home or self care 01/01/2024 2:00 PM 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 APPRENTICE Office Visit Transplant Program [address] [facility] [address] [place] [address] Ning Leiva MD [address] [facility] [address] [place], [place] [address] Scheduled Discharge Disposition: Discharged to home or [...] Donor, Chagas Screen Non Reactive Non Reactive [employer] [facility] Blood 11/20/2023 1:20 PM CDT 11/23/2023 11:23 AM CDT [facility] [employer] [address] [place] [address] * COCCIDIOIDES AB SCREEN WITH REFLEX (11/20/2023 1:20 PM CDT) Pathologist [facility] Coccidioides Antibody Negative Negative [facility] Comment: Repeat testing on a new sample in 2-3 weeks if clinically indicated. ADDITIONAL INFORMATION This test has been modified from the technical project coordinator's instructions. Its performance characteristics were determined by [facility] in a manner consistent with CLIA requirements. This test has not been cleared or approved by the U.S. Food and Drug Administration. Test Performed by: [facility] [address] [place] [address] Account Manager Sales Representative: Sawyer Alejandre Ph.D.; CLIA# [id number] Serum 11/20/2023 1:20 PM CDT 11/20/2023 2:24 PM CDT Narrative [facility] [address] [facility] - 11/21/2023 8:16 PM CDT Bill to Corporate Kidney Acquisition Account [facility] [address] [facility] [address] [place] [address] * (ABNORMAL) QUANTIFERON-TB GOLD PLUS (11/20/2023 1:20 PM CDT) QuantiFERON TB Gold Plus Positive( A) Negative [facility] QFT TB 1 0.19 [facility] QFT TB 2 0.35 [facility] QFT TB MITOGEN 9.94 [facility] QFT NIL 0.06 [facility] Blood 11/20/2023 1:20 PM CDT 11/22/2023 7:34 AM CDT Narrative [facility] - 11/22/2023 10:36 AM CDT Bill to Corporate Kidney Acquisition ??Account [facility] Performing Organization Address City/[facility]/ZIP Co de Phone Number [facility] [address] [address] * HIV COMBO (11/20/2023 1:20 PM CDT) Pathologist [facility] HIV Antigen-Antibody Nonreactive Nonreactive [facility] Comment:Performance characte ristics have not been established with this test on patients less than 2 years of age. Blood 11/20/2023 1:20 PM CDT 11/20/2023 2:24 PM CDT Narrative [facility] - 11/20/2023 3:20 PM CDT Bill to Corporate Kidney Acquisition Account [facility] [address] [address] * HEPATITIS B CORE TOTAL THEE (11/20/2023 1:20 PM CDT) Pathologist [facility] HBV Core Total Thee Nonreactive Nonreactive [facility] Blood 11/20/2023 1:20 PM CDT 11/20/2023 3:41 PM CDT Narrative [facility] - 11/20/2023 4:11 PM CDT Bill to Corporate Kidney Acquisition Account [facility] [address] [address] * (ABNORMAL) CBC WITH PLTS/AUTO DIFF (11/20/2023 1:20 PM CDT) [facility] WBC 4.75 4.00 - 10.00 k/cmm [facility] RBC 2.54(L) 4.60 - 6.00 m/cmm [facility] Hgb 8.4(L) 13.1 - 17.5 g/dL [facility] Hematocrit 24.7(L) 40.0 - 51.0 % [facility] MCV 97.2 80.0 - 100.0 fL [facility] MCH 33.1(H) 25.0 - 32.0 pg [facility] MCHC 34.0 31.0 - 36.0 g/dL [facility] RDW 14.5 11.5 - 14.5 % [facility] Plt 92(L) 150 - 400 k/cmm [facility] MPV 11.6 6.5 - 12.5 fL [facility] Automated Abs Neutrophil 3.10 1.70 - 6.50 k/cmm [facility] Comment:Preliminary ANC, Fin al Result to Follow Abs Immature Granulocyte 0.01 0.00 - 0.09 k/cmm [facility] Comment:The Immature Granulo cyte Absolute count contains metamyelocytes and myelocytes. Abs Neutrophil 3.10 1.70 - 6.50 k/cmm [facility] Abs Lymphocyte 1.09 0.80 - 4.00 k/cmm [facility] Abs Monocyte 0.41 0.20 - 1.00 k/cmm [facility] Abs Eosinophil 0.13 0.00 - 0.60 k/cmm [facility] Abs Basophil 0.01 0.00 - 0.20 k/cmm [facility] Blood 11/20/2023 1:20 PM CDT 11/20/2023 2:24 PM CDT Narrative [facility] - 11/20/2023 2:35 PM CDT Bill to Corporate Kidney Acquisition ??Account [facility] Performing Organization Address City/[facility]/ZIP Co de Phone Number [facility] [address] [address] * VARICELLA-ZOSTER VIRUS (VZV) ANTIBODY, IGG (11/20/2023 1:20 PM CDT) VZV Ab, IgG Positive [facility] Comment:Positive results ind icate current or past exposure to Varicella-Zoster virus or prior immunization. Blood 11/20/2023 1:20 PM CDT 11/20/2023 2:24 PM CDT Narrative [facility] - 11/21/2023 9:03 AM CDT Bill to Corporate Kidney Acquisition ??Account [facility] Performing Organization Address [facility] Co de Phone Number [facility] [address] [address] * MEASLES VIRUS (RUBEOLA) ANTIBODY, IGG (11/20/2023 1:20 PM CDT) Measles Ab, IgG Index 116.00 AU/ml [facility] Measles Ab, IgG Positive [facility] Comment:Positive results (>= 16.5) indicate current or past exposure to Measles virus or prior immunization. Blood 11/20/2023 1:20 PM CDT 11/20/2023 2:24 PM CDT Narrative [facility] - 11/21/2023 9:03 AM CDT Bill to Corporate Kidney Acquisition ??Account [facility] [address] [address] * RPR SYPHILIS SCREEN (11/20/2023 1:20 PM CDT) RPR Screen Non-Reactive Non-Reacti ve [facility] RPR Titer Not Reflexed [facility] Blood 11/20/2023 1:20 PM CDT 11/21/2023 10:14 AM CDT Narrative [facility] - 11/21/2023 11:32 AM CDT Bill to Corporate Kidney Acquisition ??Account [facility] [address] [address] * PROTHROMBIN (PT) & INR (11/20/2023 1:20 PM CDT) PT 11.6 9.0 - 12.5 sec [facility] INR 1.0 0.8 - 1.1 [facility] Comment: Warfarin Therapeutic Range: Standard Intensity: 2.0 - 3.0 High Intensity: 2.5 - 3.5 Blood 11/20/2023 1:20 PM CDT 11/20/2023 2:25 PM CDT Narrative [facility] - 11/20/2023 2:54 PM CDT Bill to Corporate Kidney Acquisition Account [facility] Performing Organization Address [facility] Co de Phone Number [facility] [address] [address] * PHOSPHORUS (11/20/2023 1:20 PM CDT) Phosphorus 3.6 2.5 - 4.5 mg/dL [facility] Blood 11/20/2023 1:20 PM CDT 11/20/2023 2:24 PM CDT Narrative [facility] - 11/20/2023 2:49 PM CDT Bill to Corporate Kidney Acquisition ??Account [facility] Performing Organization Address City/[facility]/ZIP Co de Phone Number [facility] [address] [address] * HEPATITIS C ANTIBODY (11/20/2023 1:20 PM CDT) Hep C Thee Nonreactive Nonreactive [facility] Comment:Performance characte ristics have not been established with this test on patients less than 10 years of age. Blood 11/20/2023 1:20 PM CDT 11/20/2023 2:24 PM CDT Narrative [facility] - 11/20/2023 3:19 PM CDT Bill to Corporate Kidney Acquisition ??Account [facility] Performing Organization Address City/[facility]/ZIP Co de Phone Number [facility] [address] [address] * HEPATITIS B SURFACE ANTIGEN (11/20/2023 1:20 PM CDT) HBV Surface Ag Nonreactive Nonreactive [facility] Comment: Testing performed at: [facility] [address] [address] Blood 11/20/2023 1:20 PM CDT 11/20/2023 2:24 PM CDT Narrative [facility] - 11/20/2023 3:19 PM CDT Bill to Corporate Kidney Acquisition ??Account [facility] Performing Organization Address City/[facility]/ZIP Co de Phone Number [address] [address] * HEPATITIS B SURFACE ANTIBODY (11/20/2023 1:20 PM CDT) HBsAb Quant 83.42 mIU/ml [facility] Comment: The Hepatitis B Surface Antibody quantitation is greater than or equal to 12.00 mIU/mL. This patient has either had an antibody response to a hepatitis B vaccination, received a transfusion or has recovered from a hepatitis B infection. This patient should be considered immune to hepatitis B. HBsAb Interpretation Reactive [facility] Blood 11/20/2023 1:20 PM CDT 11/20/2023 2:24 PM CDT Narrative [facility] - 11/20/2023 3:19 PM CDT Bill to Corporate Kidney Acquisition ??Account Nevauziel Jangmeenu [facility] Performing Organization Address City/[facility] Co de Phone Number [facility] [address] [address] * GGT (11/20/2023 1:20 PM CDT) [facility] GGT 13 10 - 71 IU/L [facility] Blood 11/20/2023 1:20 PM CDT 11/20/2023 2:24 PM CDT Narrative [facility] - 11/20/2023 2:49 PM CDT Bill to Corporate Kidney Acquisition ??Account Nevauziel Carbajal [facility] Performing Organization Address [facility] de Phone Number [facility] [address] [address] * (ABNORMAL) EBV VCA IGG (11/20/2023 1:20 PM CDT) [facility] EBV Ab VCA IGG >750.0(H) 0.0 - 21.9 U/mL [employer] Comment: INTERPRETIVE INFORMATION: Parveen-Monsalve Virus Antibody to ?Viral Capsid Antigen, IgG ??17.9 U/mL or less.......Not Detected ??18.0-21.9 U/mL..........Indeterminate - Repeat testing in ?10-14 days may be helpful. ??22.0 U/mL or greater....Detected Performed By: [facility] [address] [place] [id number] [employer] Professor: Salinas Prajapati MD, PhD CLIA Number: [id number] PARVEEN-MONSALVE VIRUS ANTIBODY TO VIRAL CAPSID ANTIGEN IGG REFERENCE INTERVAL: EFFECTIVE 10/11/09 NEGATIVE: ??17.9 U/ML OR LESS EQUIVOCAL: 18.0 - 21.9 U/ML POSITIVE: ??22.0 U/ML OR GREATER Serum 11/20/2023 1:20 PM CDT 11/20/2023 2:24 PM CDT Narrative [facility] - 11/21/2023 7:21 PM CDT Bill to Corporate Kidney Acquisition ??Account [facility] [employer] [address] [place] [address], * CALCIUM, TOTAL (11/20/2023 1:20 PM CDT) Calcium 8.6 8.6 - 10.0 mg/dL [facility] Blood 11/20/2023 1:20 PM CDT 11/20/2023 2:24 PM CDT Narrative [facility] - 11/20/2023 2:49 PM CDT Bill to Corporate Kidney Acquisition ??Account [facility] Performing Organization Address City/[facility]/ZIP Co de Phone Number [facility] [address] [address] * BILIRUBIN, TOTAL (ONLY) (11/20/2023 1:20 PM CDT) Bili Total 0.5 <=1.2 mg/dL [facility] Blood 11/20/2023 1:20 PM CDT 11/20/2023 2:24 PM CDT Narrative [facility] - 11/20/2023 2:49 PM CDT Bill to Corporate Kidney Acquisition ??Account [facility] Performing Organization Address City/[facility]/ZIP Co de Phone Number [facility] [address] [address] * AST (SGOT) (11/20/2023 1:20 PM CDT) AST(SGOT) 15 5 - 40 IU/L [facility] Blood 11/20/2023 1:20 PM CDT 11/20/2023 2:24 PM CDT Narrative [facility] - 11/20/2023 2:49 PM CDT Bill to Corporate Kidney Acquisition ??Account [facility] [address] [address] * PTT (APTT) (11/20/2023 1:20 PM CDT) APTT 33.4 25.0 - 37.0 sec [facility] Blood 11/20/2023 1:20 PM CDT 11/20/2023 2:25 PM CDT Narrative [facility] - 11/20/2023 2:54 PM CDT Bill to Corporate Kidney Acquisition Account [facility] Performing Organization Address City/[facility]/ZIP Co de Phone Number [facility] [address] [address] * ALT (SGPT) (11/20/2023 1:20 PM CDT) ALT (SGPT) 9 <=41 IU/L [facility] Blood 11/20/2023 1:20 PM CDT 11/20/2023 2:24 PM CDT Narrative [facility] - 11/20/2023 2:49 PM CDT Bill to Corporate Kidney Acquisition ??Account [facility] Performing Organization Address City/[facility]/ZIP Co de Phone Number [facility] [address] [address] * ALKALINE PHOSPHATASE (11/20/2023 1:20 PM CDT) Alk Phos 118 40 - 129 IU/L [facility] Comment:No reference range e stablished for patients <18 years old. Blood 11/20/2023 1:20 PM CDT 11/20/2023 2:24 PM CDT Narrative [facility] - 11/20/2023 2:49 PM CDT Bill to Corporate Kidney Acquisition ??Account Neva Carbajal [facility] Performing Organization Address City/[facility]/ZIP Co de Phone Number [facility] [address] [address] * ALBUMIN (11/20/2023 1:20 PM CDT) Albumin 4.3 3.8 - 5.1 g/dL [facility] Blood 11/20/2023 1:20 PM CDT 11/20/2023 2:24 PM CDT Narrative [facility] - 11/20/2023 2:49 PM CDT Bill to Corporate Kidney Acquisition ??Account [facility] Performing Organization Address City/[facility] Co de Phone Number [facility] [address] [address] * BLOOD TYPING-ABO/RH (11/20/2023 1:20 PM CDT) ABORHG O POS [facility] Blood 11/20/2023 1:20 PM CDT 11/20/2023 2:29 PM CDT Narrative [facility] - 11/20/2023 3:06 PM CDT Bill to Corporate Kidney Acquisition ??Account Neva Carbajal [facility] TRANSFUSION SER VICES Performing Organization Address [facility] Co de Phone Number [facility] [address] [address] * XR CHEST 2 VIEWS PA + [...] Blayne Quiroz MD RAD CT BODY * [facility] EXERCISE STRESS ECHO COMPLETE WITH CONTRAST (11/20/2023 [...] ? 67.01 Inches MACO Patient Number ?? [id number] ?Weight ? 205 Pounds Date of ?1980 ? BSA ?2.04 m^2 Age ?43 ? Tape Number: Gender ? Male ? Study Date ? 11/20/2023 10:51 AM Clinical Counselor ?MA ? Ordering Provider ??CORBY CARUSO Referring ? Interpreting ? Hue Flynn MD Physician ? Physician ?[id number] Type of Study: Stress procedure: ECH EXERCISE [...] HR: 176 bpm ? HR BP Product: 17358 % of predicted HR: 62 ? Max [...] EMIL Height 67.01 Inches MACO Patient Number [id number] Weight 205 Pounds Date of 1980 BSA 2.04 m^2 Age 43 Tape Number: Gender Male Study Date 11/20/2023 10:51 AM Clinical Counselor MA Ordering Provider CORBY CARUSO Referring Interpreting Hue Flynn MD Physician Physician [id number] Type of Study: Stress procedure: ECH EXERCISE STRESS ECHO, Color Doppler, Spectral Doppler HR: 84 bpmBP: 184/80 mmHg Patient Status: RoutineTechnical Quality: Adequate visualization Study [facility] Medium: [employer] Now. Amount- 0.77 ml Indications Indications for Study: [...] Predicted HR: 176 bpm HR BP Product: 79003 % of predicted HR: 62 Max Exercise: [...] withstress. Blayne Quiroz MD RAD ECHO [facility] * EKG ADULT (12-LEAD) (11/20/2023 10:46 AM CDT) 11/20/2023 10:4 6 AM CDT Impressions [facility] CVIS EKG ORDERS - 11/20/2023 10:46 AM CDT SINUS RHYTHM NORMAL ECG No previous ECG available for comparison. P-R Interval 174 ms QRS Interval 93 ms QT Interval 367 ms QTC Interval 409 ms P [place] 46 QRS [place] 61 T Wave [place] 68 Narrative Procedure Note Jean Liu MD - 11/20/2023 IMPRESSION SINUS RHYTHM NORMAL ECG No previous ECG available for comparison. P-R Interval 174 ms QRS Interval 93 ms QT Interval 367 ms QTC Interval 409 ms P [place] 46 QRS [place] 61 T Wave [place] 68 Blayne Quiroz MD EKG [facility] EKG ORDERS from Last 3 Months CORPORATE,KIDNEY ACQUISITION COST-CURRENT NEW Corporate Other 05/26/2020 Attn [facility] [address] [place] [address]
--- OUTSIDE RECORDS SUMMARY | 2023-12-12 10:36 | XMS_ITS | Encounter Summary ---
Author Organization [facility] [place] Address [address] [facility] [place] [address] Phone Care Team Providers Care Channel Marketing Coordinator Name Role Phone Unavailable Primary Care Provider Unavailabl e Reason for Visit * Reason Comments Medical Nutrition Therapy Encounter Details Date Type Department Care Team (Late st Contact Info) Description 11/20/2023 1:30 PM CDT Office Visit Transplant Program [address] [facility] [address] [place], [place] [id number] Neva Carbajal MBBS [address] [facility] [address] [place], [place] [address] Jade Goode RD, LD [address] [facility] [address] [place], [place] [id number] Encounter for pre-transplant evaluation for kidney transplant [...] 35.4 inches (90 cm) for South , Tajik, or Mongolian [email or web address]-[email or web address]/[email or web address]-kqjupatytpzcd-avylc yplad-gjv-tuhyshcqe-ethnic-groups/ Waist to Height Ratio (W:HtR): 0.63 (11/20/2023) Estimation of T2DM, HTN, CVD, and mortality risk due to central adiposity (questionable accuracy when BMI>35) 0.4 to 0.49 (no indication of increased health risks due to central adiposity) 0.5 to 0.59 (increased health risks due to increased central adiposity) 0.6 or more (further increased health risks due to high central adiposity) https://www.nice.org.uk/guidance/cg189/chapter/Recommendations#bwjinhkdtvm-bcj-v ywevkrej-bnsecrybnu-abbeehi-kft-smtyopi-oqvpdmyyr (Clinical guideline [CG189] last updated 03 November 2021) Hand Sharples Machine Operator Strength (HGS) Examination ([place] Society of Hand Therapists 2016) Equipment: [employer] Hydraulic Hand Dynamometer [id number] Test Hand Date Readings in pounds force Patient Mean Normal (mean for age & sex) Alert Level (minus 2 SD for age & sex) Right hand 11/20/2023 85, 85, 94 88 116.8 75.4 Left hand 11/20/2023 Dialysis access NA 112.8 75.4 Patient Position: Seated upright in chair, arms bent at 90 degrees Patient agreed to exam. Patient tolerated exam. Reference ranges p.5: [email or web address].pdf Frailty Screen: 1. How many days in [...] 0) Weight Loss Score = 0 4. Sharples Machine Operator Strength (dominant hand): Normal HGS for BMI [...] to 29 : <=39.5# >29 : <=46# Sharples Machine Operator Strength Score = 0 5. Walk Time [...] Mortality (Tristen Oconnell et farzaneh, J [employer]2017) Social History: Alcohol: none with illness, [...] Pre-tx info session Accompanied by Daughter Becki Explosive Ordnance Specialist NA Prior MNT Dialysis RD CDCES yrs [...] Meals out: 1 x wk - maybe faroese Usual fluid intake / 24 hr ~2 [...] Insecurity: No Food Insecurity (06/04/2023) Received from [employer] [facility], [employer] [facility] Food Insecurity Worried About Running Out of [...] 12/03/2023 9:58 AM Certified Clinical Transplant Dietitian [employer] [phone] documented in this encounter Plan of Treatment Upcoming Encounters Date Type Department Care Team (Late st Contact Info) Description 12/18/2023 11:00 AM CDT Office Visit Clinic [facility] Specialty Center Cardiology Clinic [address] [address] Denae Mckeon MD [address] [place], [place] [address] Scheduled Discharge Disposition: Discharged to home or self care 01/01/2024 2:00 PM LEVELER HELPER Office Visit Transplant Program [address] [facility] [address] [place], [place] [phone] Ning Leiva MD [address] [place] [address] Scheduled Discharge Disposition: Discharged to home or self care documented as of this encounter Visit Diagnoses Diagnosis Encounter for pre-transplant evaluation for kidney transplant- Primary documented in this encounter
--- OUTSIDE RECORDS SUMMARY | 2023-12-12 10:37 | XMS_ITS | Clinical Summary ---
Author Organization [employer] [facility] Address [place], [place] [address] Care Team Providers Care Ship Worker Name Role Phone Daysi Pires Primary [...] two times daily. 60 Tablet 4 Active sensor (WIByle Gale 3 Sensor) for continuous blood glucose monitor (CGM)Indications:Type 2 diabetes mellitus with chronic kidney disease on chronic dialysis, with long-term current use of insulin (HC) To be used to read blood sugars, change sensor every 14 days. 6 Each 3 4 Active codeine-guaiFENesin 10-100 mg/5 mL liquidIndications:Cough , unspecified type,Community acquired pneumonia of right lower lobe of lung Take 5-10 mL by mouth at bedtime if needed for Cough. Max dose 60 mL per 24 hrs. 118 mL 4 Active azithromycin (Zithromax Z-Waldo) 250 mg tabletIndications:Cough , unspecified type,Dialysis patient (HC) Two tablets the first day, one daily days 2-5 6 Tablet 4 12/15/19 24 Active amoxicillin-clavulanate (AUGMENTIN) 500-125 mg tabletIndications:Commu nity acquired pneumonia of right lower lobe of lung,Dialysis patient (HC),End stage renal disease (HC) Take 1 Tablet by mouth every 12 hours for 10 days. 20 Tablet 4 12/10/19 24 azithromycin (Zithromax Z-Waldo) 250 mg tabletIndications:Elton martinez acquired pneumonia of right lower lobe of lung Two tablets the first day, one daily days 2-5 6 Tablet 4 12/05/19 24 Active Problems Problem Noted Date Diagnosed Date [...] Encounters Date Type Department Care Team Description 12/10/2023 Telephone [facility] [address] [place] [address] Daysi Pires PA antibiotic not working (antibiotic finished) 12/10/2023 Telephone [facility] [address] [place] [address] Daysi Pires PA 12/07/2023 Telephone [facility] [address] [place] [address] Daysi Pires PA RETURNING CALL 12/03/2023 Telephone [facility] [address] [place] [address] Daysi Pires PA Follow Up 11/30/2023 3:30 PM CDT Ancillary Procedure [facility] [address] [place] [facility] [address] 11/30/2023 2:40 PM CDT Office Visit [facility] [address] [place] [address] Daysi Pires PA Follow Up (Coughing, SOB, chills started Sunday) 11/30/2023 Travel 11/14/2023 Orders Only [facility] Scanner 1 scan: (1-Ord) INDRA, WOUND DEBRIDEMENT LEFT TOE, 11/14/2023 11/07/2023 Orders Only [facility] Scanner 1 scan: (1-Ord) INDRA, WOUND DEBRIDEMENT LEFT TOE, 11/07/2023 10/31/2023 11:35 AM CDT Office Visit [facility] [address] [place] [address] Ning Lopez PA Hospital F/U (Slowly feeling better ) 10/31/2023 Travel 10/26/2023 Patient Outreach [facility] [address] [place] [address] Laura Reyes RN Primary RN Care Management (Lace 56); Hospital F/U 10/23/2023 5:44 PM CDT - 10/25/2023 5:30 AM CDT Hospital Encounter [facility] [address] [place] [address] Aiden Babin MD [facility], [facility] Hospitalists Of Eyad Wallace MD Kethireddy, Rajesh Babu, MBBS Lower extremity edema (Primary Dx); ESRD (end stage renal disease) (HC); HTN (hypertension) Discharge Disposition: Home Self Care 10/23/2023 Travel 10/19/2023 Nurse Triage [facility] [address] [place] [address] Daysi Pires PA Chest Pain from Last [...] 11/30/2023 3:26 PM CDT Cough, unspecified type SCAN-OPERATIVE/PROCE DURE REPORT 11/14/2023 12:00 AM CDT SCAN-OPERATIVE/PROCE DURE REPORT 11/07/2023 12:00 AM CDT GLUCOSE METER Timed 10/25/2023 12:32 PM CDT [...] PM CDT No acute findings. Dictated by Jean Manzo [...] (Electronically Signed) [facility]i [facility] * SCAN-OPERATIVE/PROCEDURE REPORT (11/14/2023 12:00 AM CDT) Scanner OTHER * SCAN-OPERATIVE/PROCEDURE REPORT (11/07/2023 12:00 AM CDT) Scanner OTHER * (ABNORMAL) GLUCOSE METER (10/25/2023 12:32 PM CDT) Only the most recent of7 resultswithin the time period is included. GLUCOSE METER 127(H) 65 - 100 mg/dL 10/25/2023 12:33 PM CDT [facility] Blood BLOOD SPECIMEN / Unknown 10/25/2023 12:32 PM CDT 10/25/2023 12:33 PM CDT Sean Torres [facility]STR[facility] [address] [place] [address], * ECHO TTE COMPLETE WO CONTRAST (10/24/2023 11:01 AM CDT) AORTIC VALVE MEAN PG 4 mmHg LVEDD 5.2 cm EJECTION FRACTION 55 - 60% Anatomical Region Laterality Modality Ultrasound 10/24/2023 9:54 AM CDT Narrative 10/24/2023 11:09 AM CDT ECHOCARDIOGRAM MACO STEIN ? Accession#: ?? [id number] : ?1980 43 years Study Date: ?? 10/24/2023 9:54:07 AM Gender: M ?BP: ? 180/83 mmHg Height: 175.00 cm ?BSA: ?2.10 m? ? ? Weight: 95.00 kg ? Tech: ? CJG ? Referring MD: EYAD WALLACE Site: ? [facility] Reading Location: [facility] Patient Location: Inpatient. Procedure: 2D w/ [...] detected. Comparison Compared to prior exam of GLASS BLOWING INSTRUCTOR, there has been no significant change. Chamber [...] . This study was interpreted by an [facility] accredited facility. ??Final ?? Procedure Note Alex Weaver MD - 10/24/2023 ECHOCARDIOGRAM MACO STEIN : 1980 43 years Study Date: 10/24/2023 9:54:07 AM Gender: M BP: 180/83 mmHg Height: 175.00 cm BSA: 2.10 m? ? ? Weight: 95.00 kg Tech: [facility] Referring MD: EYAD WALLACE Site: [facility] Reading Location: [facility] Patient Location: Inpatient. Procedure: 2D w/ Contrast, [...] detected. Comparison Compared to prior exam of GLASS BLOWING INSTRUCTOR, there has been no significant change. Chamber [...] . This study was interpreted by an [facility] accredited facility. Final Eyad Wallace MD ECHO ORD * HBSAG (HBS) (10/24/2023 7:01 AM CDT) HBSAG Nonreactive Nonreactive 10/24/2023 10:42 AM CDT [facility] Blood BLOOD SPECIMEN / Unknown Venipuncture / Unknown 10/24/2023 7:01 AM CDT 10/24/2023 8:32 AM CDT Rabia Husain MD SEND OUT S Performing Organization Address [facility]/ZIP Co de Phone Number [facility] [address] [place] [address], * (ABNORMAL) Electrolyte panel AM (10/24/2023 7:01 AM CDT) [facility] SODIUM 134(L) 136 - 145 mmol/L 10/24/2023 8:56 AM CDT [facility] POTASSIUM 4.1 3.5 - 5.1 mmol/L 10/24/2023 8:56 AM CDT [facility] CHLORIDE 94(L) 98 - 107 mmol/L 10/24/2023 8:56 AM CDT [facility] CO2,TOTAL 28 22 - 29 mmol/L 10/24/2023 8:56 AM CDT [facility] ANION GAP 12 5 - 18 10/24/2023 8:56 AM CDT [facility] Blood BLOOD SPECIMEN / Unknown Venipuncture / Unknown 10/24/2023 7:01 AM CDT 10/24/2023 8:32 AM CDT Eyad Wallace MD CHEMISTRY Performing Organization Address [facility] Co de Phone Number [facility] [address] [place] [address], [place] * US VENOUS LOWER EXTREMITY BILATERAL [...] For Patients: As a result of the Century Cures Act, medical imagingexams and procedure reports [...] 6-15 ng/L ng/L 10/23/2023 7:35 PM CDT [facility] Blood BLOOD SPECIMEN / Unknown Butterfly / Unknown 10/23/2023 6:57 PM CDT 10/23/2023 7:09 PM CDT Narrative [facility] - 10/23/2023 7:35 PM CDT hs-cTnT [...] department patient population. Aiden Babin MD CHEMISTRY [facility] [address] [place] [address], * (ABNORMAL) CBC W PLT NO DIFF (10/23/2023 6:57 PM CDT) WHITE BLOOD COUNT 6.3 4.5 - 11.0 thou/cu mm 10/23/2023 7:15 PM CDT [facility] RED BLOOD COUNT 2.63(L) 4.30 - 5.90 mil/cu mm 10/23/2023 7:15 PM CDT [facility] HEMOGLOBIN 8.7(L) 13.5 - 17.5 g/dL 10/23/2023 7:15 PM CDT [facility] HEMATOCRIT 25.0(L) 37.0 - 53.0 % 10/23/2023 7:15 PM CDT [facility] MCV 95 80 - 100 fL 10/23/2023 7:15 PM CDT [facility] MCH 33.1 26.0 - 34.0 pg 10/23/2023 7:15 PM CDT [facility] MCHC 34.8 32.0 - 36.0 g/dL 10/23/2023 7:15 PM CDT [facility] RDW 13.2 11.5 - 15.5 % 10/23/2023 7:15 PM CDT [facility] PLATELET COUNT 100(L) 140 - 440 thou/cu mm 10/23/2023 7:15 PM CDT [facility] MPV 12.0(H) 6.5 - 11.0 fL 10/23/2023 7:15 PM CDT [facility] NRBC 0.0 % 10/23/2023 7:15 PM CDT [facility] ABS NRBC 0.0 thou /cu mm 10/23/2023 7:15 PM CDT [facility] Blood BLOOD SPECIMEN / Unknown Butterfly / Unknown 10/23/2023 6:57 PM CDT 10/23/2023 7:09 PM CDT Aiden Babin MD HEMATOLOGY [facility] [address] [place] [address], * (ABNORMAL) HEPATIC FUNCTION PANEL (10/23/2023 6:57 PM CDT) ALBUMIN 3.7(L) 4.0 - 4.9 g/dL 10/23/2023 7:35 PM CDT [facility] PROTEIN,TOTAL 6.9 6.0 - 8.0 g/dL 10/23/2023 7:35 PM CDT [facility] BILIRUBIN,TOTAL 0.5 0.0 - 1.2 mg/dL 10/23/2023 7:35 PM CDT [facility] BILIRUBIN,DIRECT 0.2 0.0 - 0.2 mg/dL 10/23/2023 7:35 PM CDT [facility] BILIRUBIN,INDIRE CT 0.3 0.2 - 0.8 mg/dL 10/23/2023 7:35 PM CDT [facility] ALK PHOSPHATASE 74 40 - 129 IU/L 10/23/2023 7:35 PM CDT [facility] ALT (SGPT) 7(L) 10 - 50 IU/L 10/23/2023 7:35 PM CDT [facility] AST (SGOT) 17 10 - 50 IU/L 10/23/2023 7:35 PM CDT [facility] Blood BLOOD SPECIMEN / Unknown Butterfly / Unknown 10/23/2023 6:57 PM CDT 10/23/2023 7:09 PM CDT Aiden Babin MD CHEMISTRY [facility] [address] [place] [address], * (ABNORMAL) BASIC METABOLIC PANEL (10/23/2023 6:57 PM CDT) SODIUM 131(L) 136 - 145 mmol/L 10/23/2023 7:35 PM CDT [facility] POTASSIUM 4.1 3.5 - 5.1 mmol/L 10/23/2023 7:35 PM CDT [facility] CHLORIDE 90(L) 98 - 107 mmol/L 10/23/2023 7:35 PM CDT [facility] CO2,TOTAL 29 22 - 29 mmol/L 10/23/2023 7:35 PM CDT [facility] ANION GAP 12 5 - 18 10/23/2023 7:35 PM CDT [facility] GLUCOSE 366(H) 70 - 99 mg/dL 10/23/2023 7:35 PM CDT [facility] CALCIUM 8.7 8.6 - 10.0 mg/dL 10/23/2023 7:35 PM CDT [facility] BUN 29(H) 6 - 20 mg/dL 10/23/2023 7:35 PM CDT [facility] CREATININE 6.62(H) 0.70 - 1.20 mg/dL 10/23/2023 7:35 PM CDT [facility] BUN/CREAT RATIO 4(L) 10 - 20 7:35 PM CDT [facility] eGFR 10(L) >90 mL/min/1.7 3m2 10/23/2023 7:35 PM CDT [facility] Comment:As of 2021, eG FR [...] PM CDT Aiden Babin MD CHEMISTRY [facility] [address] [place] [address], * EKG 12 LEAD (10/23/2023 5:34 PM CDT) Interpretation Normal sinus rhythm Normal ECG Compared to ekg of 3 No Change BEYOND NOW Ventricular Rate 93 BPM BEYOND NOW Atrial Rate 93 BPM BEYOND NOW P-R Interval 170 ms BEYOND NOW QRS Duration 80 ms BEYOND NOW QT 362 ms BEYOND NOW QTc 450 ms BEYOND NOW P Jefferson 29 degrees BEYOND NOW R Jefferson 56 degrees BEYOND NOW T Jefferson 68 degrees BEYOND NOW 10/23/2023 5:34 PM CDT 10/23/2023 11:22 PM CDT Aiden Babin MD EKG ORD BEYOND NOW [place], [place] * (ABNORMAL) LIPID PANEL (12/06/2021 3:00 PM CDT) CHOLESTEROL,TOTAL 163 100 - 199 mg/dL 12/07/2021 3:15 PM CDT [facility] TRIGLYCERIDES 272(H) <150 mg/dL 12/07/2021 3:15 PM CDT [facility] HDL CHOLESTEROL 23(L) >40 mg/dL 3:15 PM CDT [facility] NON-HDL CHOLESTEROL 140 <145 mg/dl 12/07/2021 3:15 PM T [facility] CHOL/HDL RATIO 7.09(H) <4.50 12/07/2021 3:15 PM T [facility] LDL CHOLESTEROL 86 <=130 mg/dL 12/07/2021 3:15 PM T [facility] VLDL CHOLESTEROL 54(H) <=30 mg/dL 12/07/2021 3:15 PM T [facility] PROVIDER ORDERED STATUS RANDOM 12/07/2021 3:15 PM T [facility] Blood BLOOD SPECIMEN / Unknown 12/06/2021 3:00 PM CDT 12/07/2021 2:54 PM CDT Aidee Sher GLASS BLOWING INSTRUCTOR CHEMISTRY [facility] [address] [place] [address] from Last 3 Months or Most Recently Relevant to Health Maintenance Advance Directives Documents on File Type Date Recorded Patient Electronics Processing Supervisor Expl anation Healthcare Directive 09/26/2022 023 * Full Code (Latest Code Status on File) Date Activated Date Inactivated Comments 10/23/2023 8:52 PM 10/26/2023 1:29 AM Question Answer Comments Code Status Discussion: Reviewed Preferences * Full Code Date Activated Date Inactivated Comments 09/15/2022 5:47 PM 09/27/2022 6:10 PM Question Answer Comments Code Status Discussion: Reviewed Preferences Care Teams Ship Worker Relationship Specialty Start Date End Date Daysi Pires PA [address] [place] [address] PCP - General Physician Endless Track Vehicle Supervisor 06/04/23
--- OUTSIDE RECORDS SUMMARY | 2023-12-12 10:37 | XMS_ITS | Encounter Summary ---
Author Organization [facility] Address [address] [facility] [address] [place] [address] Care Team Providers Care Stonemason Apprentice Name Role Phone No, Pcp Primary Care Provider [phone] Encounter Details Date Type Department Care Team (Late st Contact Info) Description 12/02/2023 Orders Only [facility] [address] [place] [address] Julito Cortez MD [address] [place] [address] Social History Tobacco Use Types [...] 12/02/2023 CHEMISTRY Routine 12/02/2023 CHEMISTRY Routine 12/02/2023 [facility] RESULTS Routine 12/02/2023 documented in this encounter Results * [facility] Results (12/02/2023) WSTDKT/V 2.2 Knowledge Center Simple KT/V (HHD and NXSTAGE) 0.73 Knowledge Center SPKT/V DAUGIRDAS II (HHD & NXSTAGE) 0.78 [facility] Center 12/02/2023 12/02/2023 Shireen Ordering Provider LAB BLOOD ORDERABLE S Performing Organization Address [facility] Co de Phone Number [facility] Contact Performing lab Unknown, [place] * (ABNORMAL) HD KINETICS (12/02/2023) % Urea Reduction 52(L) 65 - 80 % [facility] 12/02/2023 12/04/2023 10: 54 AM CDT Narrative [facility] - 12/04/2023 Unless otherwise specified, test(s) performed at: [facility] [address] [place] [address], [place] [address] STUDENT RECORDS COORDINATOR: Gurdeep Ricardo M.D., Ph.D For any questions, please call customer service at FREQUENCY:MONTHLY Resulting Agency Comment Specimen source: Plasma Julito Cortez MD LAB BLOOD ORDERABLES Performing Organization Address [facility]/ZIP Co de Phone Number [facility] See order comments or contact performing lab Unknown, [place] * (ABNORMAL) [facility] (12/02/2023) Pathologist [facility] BUN 42(H) 6 - 19 mg/dL [facility] [...] 12/05/2023 Unless otherwise specified, test(s) performed at: [facility] [address] [place] [address], [place] [address] STUDENT RECORDS COORDINATOR: Gurdeep Ricardo M.D., Ph.D For any questions, please call customer service at FREQUENCY:MONTHLY Resulting Agency Comment Specimen source: Serum Julito Cortez MD LAB BLOOD ORDERABLES Performing Organization Address [facility] de Phone Number [facility] [employer] [facility] [employer] [facility] See order comments or contact performing lab Unknown, [place] * (ABNORMAL) [facility] (12/02/2023) PTH 357(H) 16 - 80 pg/mL [facility] 12/02/2023 12/04/2023 10: 16 AM CDT Narrative [facility] - 12/04/2023 Unless otherwise specified, test(s) performed at: [facility] [address] [place] [address], [place] [address] STUDENT RECORDS COORDINATOR: Gurdeep Ricardo M.D., Ph.D For any questions, please call customer service at FREQUENCY:MONTHLY Resulting Agency Comment Specimen source: Plasma Julito Cortez MD LAB BLOOD ORDERABLES Performing Organization Address [facility]/ZIP Co de Phone Number [facility] [employer] [facility] See order comments or contact performing lab Unknown, [place] * (ABNORMAL) POST CHEMISTRY (12/02/2023) BUN Post Dialysis 20(H) 6 - 19 mg/dL [facility] 12/02/2023 12/04/2023 10: 54 AM CDT Narrative [facility] - 12/04/2023 Unless otherwise specified, test(s) performed at: [facility] [address] [place] [address], [place] [address] STUDENT RECORDS COORDINATOR: Gurdeep Ricardo M.D., Ph.D For any questions, please call customer service at FREQUENCY:MONTHLY Resulting Agency Comment Specimen source: Plasma Julito Cortez MD LAB BLOOD ORDERABLES [facility] See order comments or contact performing lab Unknown, [place] * (ABNORMAL) HEMATOLOGY (12/02/2023) Neutrophils 67.1 40.0 - 75.0 % [facility] [...] 12/02/2023 12/04/2023 10: 16 AM CDT Narrative [facility] - 12/04/2023 Unless otherwise specified, test(s) performed at: [employer] [address] [place] [address], [place] [address] STUDENT RECORDS COORDINATOR: Gurdeep Ricardo M.D., Ph.D For any questions, please call customer service at FREQUENCY:MONTHLY Resulting Agency Comment Specimen source: Blood Julito Cortez MD LAB BLOOD ORDERABLES [facility] See order comments or contact performing lab Unknown, [place] documented in this encounter Visit Diagnoses Not on filedocumented in this encounter Care Teams Stonemason Apprentice Relationship Specialty Start Date End Date No, Pcp PCP - General Internal Medicine 09/10/23 documented as of this encounter
--- OUTSIDE RECORDS SUMMARY | 2023-12-12 10:37 | XMS_ITS | Encounter Summary ---
Author Organization [facility] [place] [facility] [place] [address] [place] [address] Phone Care Team Providers Care Hand Woodworking Sander Name Role Phone Unavailable Primary Care Provider Unavailabl e Reason for Visit * Prior Authorization (Routine) - Closed Specialty Diagnoses / Procedures Referred By Contac t Referred To Contact CARDIOLOGY ECHO LAB Diagnoses Encounter for other preprocedural examination KIDA Echo and EKG. Diagnoses Pre-Transplant Evaluation For Esrd (End Stage Renal Disease) [Z01.818] Procedures CA ECHO TTHRC R-T 2D W/WO M-MODE REST&STRS CONT ECG CA ECG ROUTINE ECG W/LEAST 12 LDS W/I&R CA ECG ROUTINE ECG W/LEAST 12 LDS TRCG ONLY W/O I&R Echo Lab 701 [facility] [place] [address] Referral ID Status Reason Start Date Expiration Date Visits Re quested Visits Authorized [id number] Closed 2 2 Encounter Details Date Type Department Care Team (Latest Contact Info) Description 11/20/2023 9:55 AM CDT - 11/20/2023 11:59 PM T Hospital Encounter [facility] [place] 701 [facility] [address] [place] [address] Blayne Quiroz MD [address] [address] Hue Padilla, RATNA [address] [place] [address] Jerel Pena, RN [address] [place] [address] Discharge Disposition: Discharged to home [...] Clinic & Specialty Center Cardiology Clinic [address] [address] Denae Mckeon MD 701 [facility] [address] [place] [address] Scheduled Discharge Disposition: Discharged to home or self care 01/01/2024 2:00 PM SENIOR QUALITATIVE RESEARCHER Office Visit Transplant Program 701 [facility] [address] [place] [address] Ning Leiva MD 701 [facility] [address] [place] [address] Scheduled Discharge Disposition: Discharged to home or [...] ? 67.01 Inches JESSICA Patient Number ?? [id number] ?Weight ? 205 Pounds Date of ?1980 ? BSA ?2.04 m^2 Age ?43 ? Tape Number: Gender ? Male ? Study Date ? 11/20/2023 10:51 AM Freelance Operator ?[place] ? Ordering Provider ??CORBY CARUSO Referring ? Interpreting ? Hue Flynn MD Physician ? Physician ?[id number] Type of Study: Stress procedure: ECH EXERCISE [...] HR: 176 bpm ? HR BP Product: 90849 % of predicted HR: 62 ? Max [...] VINAY Height 67.01 Inches JESSICA Patient Number [id number] Weight 205 Pounds Date of 1980 BSA 2.04 m^2 Age 43 Tape Number: Gender Male Study Date 11/20/2023 10:51 AM Freelance Operator [place] Ordering Provider CORBY CARUSO Referring Interpreting Hue Flynn MD Physician Physician [id number] Type of Study: Stress procedure: ECH EXERCISE [...] Predicted HR: 176 bpm HR BP Product: 49154 % of predicted HR: 62 Max Exercise: [...] improved withstress. Blayne Quiroz MD RAD ECHO [facility] [place] documented in this encounter Visit Diagnoses [...]
--- OUTSIDE RECORDS SUMMARY | 2023-12-12 10:37 | XMS_ITS ---
Author Organization [facility] Address [address] [place] [address] Phone Care Team Providers Care Apprenticeship Training Representative Name Role Phone Unavailable Primary Care Provider Unavailabl e Transplant Episode Kidney Candidate [facility] ([place], [place]) - [facility] Evaluation began on 11/20/2023 Marked as Active on 11/20/2023 Kidney CoordinatorChinyere Valencia RN Phone: N/A Fax: N/A Email: N/A Care Team Name Role Phone Fax Email Chinyere Valencia RN Kidney Coordinator N/A N/A N/A Jean Ochoa DO TXP Info Surgeon [phone] N/A Julito Cortez MD Wood Carver Referring Wood Carver Referring Provider [phone] N/A Kidney Spec [facility] Referring Nephrology Group TXP Nephrology Group N/A N/A N/A Chinyere Valencia RN TXP Pre Coordinator N/A N/A N/A Events Pre-Transplant Referred: 05/11/2023 Evaluation began: 11/20/2023 Committee: 07/20/2023 Appointments (11/12/2023 - 01/12/2024) When With Description 11/20/2023 Transplant - Kamala Simental Chronic kidne y disease (Primary Dx) 11/20/2023 Transplant - Stacia Goode Encount er for pre-transplant evaluation for kidney transplant (Primary Dx) 01/01/2024 Transplant - Jessi Leiva Sche duled Dialysis History Dialysis History Start End Type Comments Center Home Hemodialysis [facility] Dialysis Center Information Center Phone Fax Address [facility] [phone] [address] [facility] [address]
--- OUTSIDE RECORDS SUMMARY | 2023-12-12 10:37 | XMS_ITS | Encounter Summary ---
Author Organization [facility] [place] Address [address] [place] [address] Phone Care Team Providers Care Electronic Scale Tester Name Role Phone Unavailable Primary Care Provider Unavailabl e Encounter Details Date Type Department Care Team (Late st Contact Info) Description 10/03/2023 Documentation Only Transplant Program [address] [place], [place] [address] Williams Lindquist Transplant Labor Relations Consultant [address] [place], [place] [address] Social History Tobacco Use Types Packs/Day Years Used Date Smoking Tobacco: Never Assessed Sex and Gender Information Value Date Recorded Sex Assigned at Not on file Gender Identity Not on file Sexual Orientation Not on file documented as of this encounter Progress Notes * Willimas Lindquist Transplant Labor Relations Consultant - 10/03/2023 9:12 AM CDT D/A: Received message from patient's daughter stating his Emergency Medical Assistance insurance isin place again. This was verified by [facility] website. Patient contacted and informed someone will becontacting him to reschedule the appointments that had to be canceled in August. Also talked with himabout applying for Uncompensated Care and patient requested an email be sent to him with the numberto call. Brenna Lindquist Transplant Labor Relations Consultant, Tuesday October 03, 2023 09:16 documented in this encounter Plan of Treatment Upcoming Encounters Date Type Department Care Team (Late st Contact Info) Description 12/18/2023 11:00 AM CDT Office Visit Clinic & Specialty Center Cardiology Clinic [address] [address] Denae Mckeon MD [address] [place] [address] Scheduled Discharge Disposition: Discharged to home or self care 01/01/2024 2:00 PM SPECIAL AGENT SECRET SERVICE Office Visit Transplant Program [address] [place] [address] Ning Levia MD [address] [place] [address] Scheduled Discharge Disposition: Discharged to home or self care documented as of this encounter Visit Diagnoses Not on filedocumented in this encounter
--- OUTSIDE RECORDS SUMMARY | 2023-12-12 10:37 | XMS_ITS | Encounter Summary ---
Author Organization [facility] Address [address] [facility] [address] [place] [address] Care Team Providers Care Paint Booth Operator Name Role Phone No, Pcp Primary Care Provider [phone] Encounter Details Date Type Department Care Team (Late st Contact Info) Description 11/03/2023 Orders Only [facility] [address] [place] [address] Julito Cortez MD [address] [place] [address] Social History Tobacco Use Types [...] 11/06/2023 Unless otherwise specified, test(s) performed at: [facility], [address] [place] [address], [place] [address] SIDE DOOR WORKER: Gurdeep Ricardo M.D., Ph.D For any [...] MD LAB BLOOD ORDERABLES Performing Organization Address [facility]/ZIP Co de Phone Number [facility] See order comments or contact performing lab Unknown, [place] * (ABNORMAL) POST CHEMISTRY (11/03/2023) BUN Post Dialysis 23(H) 6 - 19 mg/dL [facility] 11/03/2023 11/06/2023 10: 47 AM CDT Narrative [facility] - 11/06/2023 Unless otherwise specified, test(s) performed at: [facility], [address] [place] [address], [place] [address] SIDE DOOR WORKER: Gurdeep Ricardo M.D., Ph.D For any questions, please call customer service at FREQUENCY:MONTHLY Resulting Agency Comment Specimen source: Plasma Julito Cortez MD LAB BLOOD ORDERABLES Performing Organization Address [facility] de Phone Number [...] 11/03/2023 11/06/2023 10: [address] [facility] 11/06/2023 Unless otherwise specified, test(s) performed at: [facility], [address] [place] [address], [place] [address] SIDE DOOR WORKER: Gurdeep Ricardo M.D., Ph.D For any questions, please call customer service at FREQUENCY:MONTHLY Resulting Agency Comment Specimen source: Serum Julito Cortez MD LAB BLOOD ORDERABLES Performing Organization Address City/[facility]/ZIP Co de Phone Number [facility] [employer] [facility] See order comments or contact performing lab Unknown, [place] * (ABNORMAL) Spectra Chemistry (11/03/2023) PTH 328(H) 16 - 80 pg/mL [facility] 11/03/2023 11/06/2023 10: [address] [facility] - 11/06/2023 Unless otherwise specified, test(s) performed at: [facility], [address] [place] [address], [place] [address] SIDE DOOR WORKER: Gurdeep Ricardo M.D., Ph.D For any questions, please call customer service at FREQUENCY:MONTHLY Resulting Agency Comment Specimen source: Plasma Julito Cortez MD LAB BLOOD ORDERABLES Performing Organization Address City/[facility]/ZIP Co de Phone Number [facility] [employer] [facility] See order comments or contact performing lab Unknown, [place] documented in this encounter Visit Diagnoses Not on filedocumented in this encounter Care Teams Paint Booth Operator Relationship Specialty Start Date End Date No, Pcp PCP - General Internal Medicine 09/10/23 documented as of this encounter
--- OUTSIDE RECORDS SUMMARY | 2023-12-12 10:37 | XMS_ITS | Encounter Summary ---
Author Organization [facility] Address [address] [facility] [facility] [address] [place] [address] Care Team Providers Care Business Segment Manager Name Role Phone No, Pcp Primary Care Provider [phone] Encounter Details Date Type Department Care Team (Late st Contact Info) Description 09/27/2023 Orders Only [facility] [place] [address] [place] [address] Julito Cortez MD [address] [place] [address] Social History Tobacco Use Types [...] Shireen Ordering Provider LAB BLOOD ORDERABLE [facility] Center Contact Performing lab Unknown, [...] 09/28/2023 Unless otherwise specified, test(s) performed at: [facility], [address] [place] [address], [place] [address] FOREIGN DIPLOMAT: Gurdeep Ricardo M.D., Ph.D For any questions, [...] LAB BLOOD ORDERABLES Performing Organization Address [facility]/ZIP Co de Phone Number [facility] See order comments or contact performing lab Unknown, [place] * (ABNORMAL) POST CHEMISTRY (09/27/2023) BUN Post Dialysis 23(H) 6 - 19 mg/dL [facility] 09/27/2023 09/28/2023 3:1 1 AM CDT Narrative [facility] - 09/28/2023 Unless otherwise specified, test(s) performed at: [facility], [address] [place] [address], [place] [address] FOREIGN DIPLOMAT: Gurdeep Ricardo M.D., Ph.D For any questions, please call customer service at FREQUENCY:MONTHLY Resulting Agency Comment Specimen source: Plasma Julito Cortez MD LAB BLOOD ORDERABLES Performing Organization Address [facility] de Phone Number [facility] [...] 09/27/2023 09/28/2023 2:5 6 AM CDT Narrative [facility] - 09/28/2023 Unless otherwise specified, test(s) performed at: [facility], [address] [place] [address] FOREIGN DIPLOMAT: Gurdeep Ricardo M.D., Ph.D For any questions, please call customer service at FREQUENCY:MONTHLY Resulting Agency Comment Specimen source: Serum Julito Cortez MD LAB BLOOD ORDERABLES Performing Organization Address [facility] Co de Phone Number [facility] [employer] [facility] See order comments or contact performing lab Unknown, [place] * (ABNORMAL) [facility] Chemistry (09/27/2023) PTH 291(H) 16 - 80 pg/mL [facility] 09/27/2023 09/28/2023 3:0 3 AM CDT Narrative [facility] K[facility] - 09/28/2023 Unless otherwise specified, test(s) performed at: [facility], [address] [place] [address], [place] [address] FOREIGN DIPLOMAT: Gurdeep Ricardo M.D., Ph.D For any questions, please call customer service at FREQUENCY:MONTHLY Resulting Agency Comment Specimen source: Plasma Julito Cortez MD LAB BLOOD ORDERABLES Performing Organization Address [facility]/ZIP Co de Phone Number [facility] [employer] [facility] See order comments or contact performing lab Unknown, [place] documented in this encounter Visit Diagnoses Not on filedocumented in this encounter Care Teams Business Segment Manager Relationship Specialty Start Date End Date No, Pcp PCP - General Internal Medicine 09/10/23 documented as of this encounter
--- OUTSIDE RECORDS SUMMARY | 2023-12-12 10:37 | XMS_ITS | Encounter Summary ---
Author Organization [facility] Address [address] [place] [address] Phone Care Team Providers Care Director For Beauty School Name Role Phone Unavailable Primary Care Provider Unavailabl e Encounter Details Date Type Department Care Team (Late st Contact Info) Description 09/03/2023 Documentation Only Transplant Program [address] [place], [place] [address] Williams Lindquist Transplant Linen Folder [address] [place], [place] [address] Social History Tobacco Use Types Packs/Day Years Used Date Smoking Tobacco: Never Assessed Sex and Gender Information Value Date Recorded Sex Assigned at Not on file Gender Identity Not on file Sexual Orientation Not on file documented as of this encounter Progress Notes * Williams Lindquist Transplant Linen Folder - 09/03/2023 9:30 AM CDT D/A: Patient's Emergency Medical Assistance checked in [facility] website and found to be inactive. Patient was called with night worker and given this information. Patient responded in Libyan and does not need an shoe handler. Patient stated he believes everything has been covered. Explained that his coverage was checked in the Medical Assistance website which his ID number was entered and the response listed his name and that coverage is inactive. Patient was told to contact [facility] appears he needs to renew his coverage. Patient was also told that appointments scheduled for 09/04/2023 will be canceled. Patient was requested to call when his coverage is in place again. medication coordinator aware. Brenna Lindquist Transplant Linen Folder, Sunday September 03, 2023 09:35 documented in this encounter Plan of Treatment Upcoming Encounters Date Type Department Care Team (Late st Contact Info) Description 12/18/2023 11:00 AM CDT Office Visit Clinic & Specialty Center Cardiology Clinic [address] [address] Denae Mckeon MD [address] [place], [place] [address] Scheduled Discharge Disposition: Discharged to home or self care 01/01/2024 2:00 PM EMBOSSING PRESS OPERATOR Office Visit Transplant Program 701 [facility] [address] [place], [place] [address] Ning Leiva MD [address] [place] [address] Scheduled Discharge Disposition: Discharged to home or self care documented as of this encounter Visit Diagnoses Not on filedocumented in this encounter
--- OUTSIDE RECORDS SUMMARY | 2023-12-12 10:37 | XMS_ITS | Encounter Summary ---
Author Organization [facility] Address [address] [place] [address] Care Team Providers Care Director Of Recruitment Name Role Phone No, Pcp Primary Care Provider [phone] Encounter Details Date Type Department Care Team (Late st Contact Info) Description 11/22/2023 Treatment [facility] [place] [address] [place] [address] Julito Cortez MD [address] [facility] [address] [place] [address] Social History Tobacco Use Types Packs/Day Years Used Date Smoking Tobacco: Never Assessed Sex and Gender Information Value Date Recorded Sex Assigned at Not on file Gender Identity Not on file Sexual Orientation Not on file documented as of this encounter Miscellaneous Notes * Dialysis Note - uJlito Cortez MD - 11/22/2023 2:24 PM CDT Date: Nov 22, 2023 Patient Name: Maco Stein : 1980 Chart #: [id number] Sex: M This patient was personally seen for a complete visit as part of routine monthly dialysis care. A review of the dialysis treatment, blood pressure, estimated dry weight and recent lab values was made. These were discussed with the patient and staff as necessary. BAGGING MACHINE OPERATOR: Julito Cortez MD LOCATION: [phone] SCHEDULE: EDW: kg. DIALYZER: HD DURATION: NEEDLE [...] or CP. has appt next week at [facility] [place]. 06/15/23: Feels well. no concerns. cost was a barrier to getting the Lokelma, hasn't obtained it,yet. 05/01/23: Feels well. no SOB or CP. No N/v/d. Stable wt. BP's are better. 04/10/23: Feels well, 2nd day with 2 16 g needles in. no SOB or CP. 03/01/23: HD going well. but having L AVF/arm discomfort/numbness, worse on the run. has appt at [facility] [place] Tu with Dr. Solorzano. fingers cool but not cold, no weakness, no pain. Interested in HHD and going to for education tomorrow. referred for txp to [facility]. 01/24/23: Feels well, got his AVF at [facility] yesterday. no arm pain. no SOB or CP. 12/25/22: BP is better after lowering his meds. still has ringing in his ears at end of every run, and leaving about EDW and no edema or SOB. Going for AVF soon. still can't do Txp eval until insurance is confirmed. 11/24/22: Feels fine today. No SOB or CP. hasn't been to [facility], yet. no N/V. 11/01/22: my second time seeing him. feels better. has had some tinnitus. BP is high but no MORA, blurry vision, CP or SOB. appetite is better. Taking losartan 50 mg/d. 10/02/22: My first time meeting him. his second time here, started here 09/29. Came from [facility] where he initiated. Feels ok today. no SOB or CP Advanced Practitioner Subjective BILLPOSTER 08/01/2023:Seen on dialysis. Doing well. No SOB, or chest pain reported. Arm access working well; no reported issues. BP slightly elevated. Leaving close to EDW. Potassium improved. Continue plan ofcare. BILLPOSTER 06/06/2023: Patient seen on dialysis. Doing well. [...] mouth twice a day 07/13/2023 RenaPlex-D (vit b,d-lg-iqqq-selen-vit d3-e) 800 mcg-12.5 mg-2,000 unit tablet Take [...] of access: Fistula Surgeon - IR at [facility] Staff and patient report access is working well. Send to Surgeon for access creation. 04/10/23: using AVF d #2 today. 03/01/23: may have steal, going to see surgeon 03/06/23 01/24/23 L AVF at [facility] 01/23/23 (see OP note) 12/25/22: has [facility] appt upcoming 11/01/22: needs AVF eval at [facility] [place]ANE 10/02/22: needs AVF eval at [facility] Anemia Assessment HEMOGLOBIN (G/DL) IN BLOOD g/dL [...] K+ diet education ongoing 08/13/23: Labs pending BILLPOSTER 02/08/2023: Educated on low potassium foods. Bone [...] at goal. Intact PTH is at goal. Asphalt Coater will adjust binders and vitamin D per protocol and continue to provide dietary education. 08/13/23: Labs pending Cardiovascular Assessment Blood pressures reviewed and are acceptable. Intradialytic weight gains are appropriate. Estimated dry weight is appropriate. Continue same cardiovascular medications. 11/22/23: erratic BP's and keep log and report to us in 1-2 wks. BILLPOSTER 05/11/2023 decreased to 95.5 kg 03/01/23: increase 96 12/25/22: increase 93.5 MD 11/24/22: increase 92 11/01/22: increase losartan to 100 mg q evening. next would add CCB, edw 93.5 BILLPOSTER 10/09/2022: Had been still taking hydralazine; not started losartan. Instructed to make change 10/02/22: d/c hydralazine, add Losartan 50 mg q evening. Transplant Status: Patient has been referred. Center - [facility] 04/10/23: got his LEA in Jan and was referred to [facility], still waiting to hear back 11/24/22: not [...] in this encounter Care Teams Director Of Recruitment Relationship Specialty Start Date End Date No, Pcp PCP - General Internal Medicine 09/10/23 documented as of this encounter
--- OUTSIDE RECORDS SUMMARY | 2023-12-12 10:37 | XMS_ITS | Encounter Summary ---
Author Organization [facility] Address [address] [facility] [place] [address] Phone Care Team Providers Care Director Surgical Name Role Phone Unavailable Primary Care Provider [...] ABDOMEN & PELVIS W/O CONTRAST MATERIAL Ct [facility] [address] [place] [address] Referral ID Status Reason Start Date Expiration Date Visits Re quested Visits Authorized [id number] Closed 1 1 Encounter Details Date Type Department Care Team (Latest Contact Info) Description 11/20/2023 12:08 PM CDT - 11/20/2023 11:59 PM CDT Hospital Encounter [facility] [place] [address] [place], [place] [address] Blayne Quiroz MD [address] [facility] [address] [place] [address] Discharge Disposition: Discharged to home or self [...] Clinic & Specialty Center Cardiology Clinic [address] [address] Denae Mckeon MD 701 [facility] [address] [place], [place] [address] Scheduled Discharge Disposition: Discharged to home or self care 01/01/2024 2:[address] DRIVER Office Visit Transplant Program [address] [place] [address] [address] [place], [place] [address] Ning Leiva MD [address] [facility] [address] [place] [address] Scheduled Discharge Disposition: Discharged to home or [...]
--- OUTSIDE RECORDS SUMMARY | 2023-12-12 10:37 | XMS_ITS | Clinical Summary ---
Author Organization [facility] Facility Address [address] [facility] [address] [place] [address] Care Team Providers Care Egg Worker Name Role Phone No, Pcp Primary Care Provider [phone] Active Problems Problem Noted Date Diagnosed Date End stage renal disease 11/23/2023 Dependence on renal dialysis 11/23/2023 Type 2 diabetes mellitus 11/23/2023 Encounters Date Type Department Care Team Description 12/02/2023 Orders Only [facility] [address] [facility] [address] [place] [address] Julito Cortez MD 11/22/2023 Orders Only [facility] [address] [facility] [address] [place] [address] Julito Cortez MD 11/22/2023 Treatment [facility] [address] [address] Julito Cortez MD 11/08/2023 Orders Only [facility] [address] [address] Julito Cortez MD 11/03/2023 Orders Only [facility] [address] [facility] [address] [place] [address] Julito Cortez MD 09/27/2023 Orders Only [facility] [address] [facility] [address] [place] [address] Julito Cortez MD 09/26/2023 Treatment [facility] [place] [address] Julito Cortez MD from Last 3 Months [...] Diagnosis Comments [facility] LAB RESULTS Routine 12/02/2023 HD KINETICS Routine 12/02/2023 CHEMISTRY Routine 12/02/2023 [...] 09/27/2023 CHEMISTRY Routine 09/27/2023 CHEMISTRY Routine 09/27/2023 from Last 3 Months Results * (ABNORMAL) HD KINETICS (12/02/2023) Only the most recent of3 resultswithin the time period is included. % Urea Reduction 52(L) 65 - 80 % [facility] 12/02/2023 12/04/2023 10: 54 AM CDT Narrative [facility] Ligandal [facility] - 12/04/2023 Unless otherwise specified, test(s) performed at: [facility], [address] [place] [address], [place] [id number] ARCHAEOLOGY PROFESSOR: Gurdeep Ricardo M.D., Ph.D For any questions, please call customer service at FREQUENCY:MONTHLY Resulting Agency Comment Specimen source: Plasma Julito Cortez MD LAB BLOOD ORDERABLES [facility] See order comments or contact performing lab Unknown, [place] * (ABNORMAL) POST CHEMISTRY (12/02/2023) Only the most recent of3 resultswithin the time period is included. Pathologist [facility] BUN Post Dialysis 20(H) 6 - 19 mg/dL [facility] 12/02/2023 12/04/2023 10: 54 AM CDT Narrative [facility] Ligandal [facility] - 12/04/2023 Unless otherwise specified, test(s) performed at: [facility], [address] [place] [address], [place] [id number] ARCHAEOLOGY PROFESSOR: Gurdeep Ricardo M.D., Ph.D For any questions, please call customer service at FREQUENCY:MONTHLY Resulting Agency Comment Specimen source: Plasma Julito Cortez MD LAB BLOOD ORDERABLES [facility] Ligandal [facility] See order comments or contact performing [...] 12/04/2023 Unless otherwise specified, test(s) performed at: [facility], [address] [place] [address], [place] [address] ARCHAEOLOGY PROFESSOR: Gurdeep Ricardo M.D., Ph.D For any questions, please call customer service at FREQUENCY:MONTHLY Resulting Agency Comment Specimen source: Blood Julito Cortez MD LAB BLOOD ORDERABLES [employer] [facility]RA [facility] See order comments or contact performing lab Unknown, [place] * (ABNORMAL) Spectrae Chemistry (12/02/2023) Only the most recent of8 resultswithin the time period is included. [facility] BUN 42(H) 6 - 19 mg/dL Spectra [...] 12/02/2023 12/04/2023 9:3 8 AM CDT Narrative [facility] SPECTRA KSN - 12/05/2023 Unless otherwise specified, test(s) performed at: [facility], [address] [place] [address], [place] [address] ARCHAEOLOGY PROFESSOR: Gurdeep Ricardo M.D., Ph.D For any questions, please call customer service at FREQUENCY:MONTHLY Resulting Agency Comment Specimen source: Serum Julito Cortez MD LAB BLOOD ORDERABLES [facility] See order comments or contact performing lab Unknown, [place] * Spectra SHIREEN Lab Results (12/02/2023) Only the most recent of3 resultswithin the time period is included. WSTDKT/V 2.2 [facility] Simple KT/V (HHD and NXSTAGE) 0.73 [facility] SPKT/V DAUGIRDAS II (HHD & NXSTAGE) 0.78 [facility] 12/02/2023 12/02/2023 Shireen Ordering Provider LAB BLOOD ORDERABLE S SHIRE[facility] Contact Performing lab Unknown, [place] from Last 3 Months Care Teams Egg Worker Relationship Specialty Start Date End Date No, Pcp PCP - General Internal Medicine 09/10/23
--- OUTSIDE RECORDS SUMMARY | 2023-12-12 10:37 | XMS_ITS | Encounter Summary ---
Author Organization [facility] Address [address] [facility] [address] [place] [address] Care Team Providers Care Landscape Artist Name Role Phone No, Pcp Primary Care Provider [phone] Encounter Details Date Type Department Care Team (Late st Contact Info) Description 11/22/2023 Orders Only [facility] [place] [address] [place] [address] Julito Cortez MD [address] [place] [address] Social History Tobacco Use Types [...] (11/22/2023) Potassium 5.4(H) 3.5 - 5.1 mEq/L [employer] 11/22/2023 11/23/2023 7:1 8 AM CDT Narrative [facility] - 11/23/2023 Unless otherwise specified, test(s) performed at: [facility] [employer], [address] [place] [address], [place] [address] COMMERCIAL COORDINATOR: Gurdeep Ricardo M.D., Ph.D For any questions, please call customer service at FREQUENCY:OTHER Resulting Agency Comment Specimen source: Serum Julito Cortez MD LAB BLOOD ORDERABLES [facility] See order comments or contact performing lab Unknown, [place] documented in this encounter Visit Diagnoses Not on filedocumented in this encounter Care Teams Landscape Artist Relationship Specialty Start Date End Date No, Pcp PCP - General Internal Medicine 09/10/23 documented as of this encounter
--- OUTSIDE RECORDS SUMMARY | 2023-12-12 10:37 | XMS_ITS | Encounter Summary ---
Author Organization [facility] Address [address] [facility] [address] [place] [address] Care Team Providers Care Aircraft Mechanic Electrical And Radio Name Role Phone No, Pcp Primary Care Provider [phone] Encounter Details Date Type Department Care Team (Late st Contact Info) Description 11/08/2023 Orders Only [facility] [place] [address] [place] [address] Julito Cortez MD [address] [place] [address] Social History Tobacco Use Types [...] 11/10/2023 Unless otherwise specified, test(s) performed at: [facility] [address] [place] [address], [place] [address] SKILLED LABORER: Gurdeep Ricardo M.D., Ph.D For any questions, please call customer service at FREQUENCY:OTHER Resulting Agency Comment Specimen source: Serum Julito Cortez MD LAB BLOOD ORDERABLES [facility] See order comments or contact performing lab Unknown, [place] documented in this encounter Visit Diagnoses Not on filedocumented in this encounter Care Teams Aircraft Mechanic Electrical And Radio Relationship Specialty Start Date End Date No, Pcp PCP - General Internal Medicine 09/10/23 documented as of this encounter
--- OUTSIDE RECORDS SUMMARY | 2023-12-12 10:37 | XMS_ITS | Encounter Summary ---
Author Organization [facility] Address 1 [place] [address] Phone Care Team Providers Care Carrot Grader Inspector Name Role Phone Unavailable Primary Care Provider Unavailabl e Encounter Details Date Type Department Care Team (Late st Contact Info) Description 09/26/2023 Abstract Transplant Program [address] [place] [address] [facility] [place] [address] Williams Lindquist, Transplant Jewelry Designer [address] [place] [phone] Social History Tobacco Use Types Packs/Day Years [...] Clinic & Specialty Center Cardiology Clinic [address] [address] Denae Mckeon MD 701 [facility] [address] [place] [address] Scheduled Discharge Disposition: Discharged to home or self care 01/01/2024 2:00 PM POULTRY SCIENTIST Office Visit Transplant Program 1 [facility] [address] [place] [address] Ning Leiva MD 701 [facility] [address] [place] [address] Scheduled Discharge Disposition: Discharged to home or self care documented as of this encounter Visit Diagnoses Not on filedocumented in this encounter
--- OUTSIDE RECORDS SUMMARY | 2023-12-12 10:37 | XMS_ITS | Encounter Summary ---
Author Organization [facility] Address [address] [place] [address] Phone Care Team Providers Care Pulp Machine Operator Name Role Phone Unavailable Primary Care Provider Unavailabl e Encounter Details Date Type Department Care Team (Late Contact Info) Description 11/01/2023 Documentation Only Transplant Program [address] [place] [address] Williams Lindquist Transplant Yield Analyst [address] [place], [place] [id number] Social History Tobacco Use Types Packs/Day Years Used Date Smoking Tobacco: Never Assessed Sex and Gender Information Value Date Recorded Sex Assigned at Not on file Gender Identity Not on file Sexual Orientation Not on file documented as of this encounter Progress Notes * Williams Lindquist Transplant Yield Analyst - 11/01/2023 1:48 PM CDT D/A: The following secure email was sent to Rin, patient's fountain worker. Lopez Gar, Sorry to bother you, but I'm wondering if you have received the [facility] approved renewed ESRD Care Planon Maco Stein? He has transplant evaluation appointments scheduled and I'm afraid we'll have to cancel them if we don't have a current Care Plan in place. Thanks for your help, Williams Hui: Response pending. Brenna Lindquist, Transplant Yield Analyst, October 13:49 documented in this encounter Plan of Treatment Upcoming Encounters Date Type Department Care Team (Late st Contact Info) Description 12/18/2023 11:00 AM CDT Office Visit Clinic [facility] Specialty Center Cardiology Clinic [address] [place] [address] Denae Mckeon MD [address] [place] [address] Scheduled Discharge Disposition: Discharged to home or self care 01/01/2024 2:00 PM WIRE THREADER Office Visit Transplant Program 701 [facility] [address] [place] [address] Ning Leiva MD [address] [place], [place] [address] Scheduled Discharge Disposition: Discharged to home or self care documented as of this encounter Visit Diagnoses Not on filedocumented in this encounter
--- OUTSIDE RECORDS SUMMARY | 2023-12-12 10:37 | XMS_ITS | Encounter Summary ---
Author Organization [facility] Address 1 [place] [address] Phone Care Team Providers Care Community Living Coach Name Role Phone Unavailable Primary Care Provider Unavailabl e Encounter Details Date Type Department Care Team (Late st Contact Info) Description 04/25/2023 Abstract Transplant Program [address] [place] [address] [facility] [place] [address] Williams Lindquist, Transplant Butcher Fish [address] [place] [address] [phone] Social History Tobacco Use Types Packs/Day Years [...] & Specialty Center Cardiology Clinic [address] [address] Denae Mckeon MD 701 [facility] [address] [place] [address] Scheduled Discharge Disposition: Discharged to home or self care 01/01/2024 2:00 PM DRY HEAT CABINET ATTENDANT Office Visit Transplant Program 1 [facility] [address] [place] [address] Ning Leiva MD 701 [facility] [address] [place] [address] Scheduled Discharge Disposition: Discharged to home or self care documented as of this encounter Visit Diagnoses Not on filedocumented in this encounter
--- OUTSIDE RECORDS SUMMARY | 2023-12-12 10:38 | XMS_ITS | Encounter Summary ---
Author Organization [facility] Address [address] [facility] [address] [place] [address] Care Team Providers Care Wood Turning Lathe Operator Name Role Phone No, Pcp Primary Care Provider [phone] Encounter Details Date Type Department Care Team (Late st Contact Info) Description 09/10/2023 Orders Only [facility] [place] [address] [place] [address] Julito Cortez MD [address] [place] [address] Social History Tobacco Use Types [...] (09/10/2023) Potassium 6.0(H) 3.5 - 5.1 mEq/L [employer] 09/10/2023 09/11/2023 3:3 0 AM CDT Narrative [facility] - 09/11/2023 Unless otherwise specified, test(s) performed at: [facility], [address] [place] [address], [place] [address] MEDICAL COLLECTIONS REPRESENTATIVE: Gurdeep Ricardo M.D., Ph.D For any questions, please call customer service at FREQUENCY:OTHER Resulting Agency Comment Specimen source: Serum Julito Cortez MD LAB BLOOD ORDERABLES [facility] See order comments or contact performing lab Unknown, [place] documented in this encounter Visit Diagnoses Not on filedocumented in this encounter Care Teams Wood Turning Lathe Operator Relationship Specialty Start Date End Date No, Pcp PCP - General Internal Medicine 09/10/23 documented as of this encounter
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
== END 2023-12-12 10:31 | disposition home or self-care (01) ==
LOC: WOUND 10:30
PROVIDERS: PCP Internal Medicine; Visit Provider Surgery
DX: E11.621 Type 2 diabetes mellitus with foot ulcer (principal); E11.40 Type 2 diabetes mellitus with diabetic neuropathy, unspecified; L97.524 Non-pressure chronic ulcer of other part of left foot with necrosis of bone; L97.522 Non-pressure chronic ulcer of other part of left foot with fat layer exposed; E11.22 Type 2 diabetes mellitus with diabetic chronic kidney disease; N18.6 End stage renal disease; Z99.2 Dependence on renal dialysis
CPT/HCPCS: 11042; 97597; G0463

== ENCOUNTER 2023-12-13 13:21 | Outpatient (CLI) | payer MEDICAID, OTHER, SELFPAY ==
--- OUTSIDE RECORDS SUMMARY | 2023-12-13 13:25 | XMS_ITS ---
Author Name [facility] Address [address] [place] [address] Phone [phone] Organization [facility] e, NA DOCUMENT DISCLAIMER Multiple document versions may exist, please be sure you review the latest version. The information in the [facility] Continuity of Care Document represents a [...] 29, 2023 Frequency 4X Week [facility] D[facility]zer/Cartridge CAR 172 Therapy Fluid (dialysate) 2.0 [...]
--- OUTSIDE RECORDS SUMMARY | 2023-12-13 13:26 | XMS_ITS | Encounter Summary ---
Author Organization [facility] Address [address] [facility] [place] [address] Phone Care Team Providers Care Plastic Surgery Technician Name Role Phone Unavailable Primary Care Provider Unavailabl e Reason for Referral * Consult/Test/Treat (Routine) - New Request Specialty Diagnoses / Procedures Referred By Amanda t Referred To Contact Infectious Diseases / INFECTIOUS DISEASES Diagnoses Pre-transplant evaluation for ESRD (end stage renal disease) Neva Carbajal MBBS 701 [facility] [address] [place] [address] Referral ID Status Reason Start Date Expiration Date V isits Requested Visits Authorized [id number] New Request 11/22/2023 11/22/2024 1 1 Encounter Details Date Type Department Care Team (Late Contact Info) Description 11/22/2023 Orders Only Transplant Program [address] [place] [address] [address] [place] [address] Chinyere Valencia, [facility] [address] [place] [address] Pre-transplant evaluation for ESRD (end stage renal [...] & Specialty Center Cardiology Clinic [address] [address] Denae Mckeon MD 701 [facility]5 [place] [address] Scheduled Discharge Disposition: Discharged to home or self care 01/01/2024 2:00 PM SENIOR MOBILE WEB DEVELOPER Office Visit Transplant Program 701 [facility] [address] [place] [address] Ning Leiva MD 701 [facility] G[address] [place] [address] Scheduled Discharge Disposition: Discharged to home or [...]
--- OUTSIDE RECORDS SUMMARY | 2023-12-13 13:26 | XMS_ITS | Encounter Summary ---
Author Organization [facility] Address [address] [facility] [place] [address] Phone Care Team Providers Care Cutlery Grinder Name Role Phone Unavailable Primary Care Provider Unavailabl e Reason for Visit * Reason Comments Medical Nutrition Therapy Encounter Details Date Type Department Care Team (Late st Contact Info) Description 11/20/2023 1:30 PM CDT Office Visit Transplant Program 701 [facility] [address]1.[address] [place], [place] [id number] eNva Carbajal MBBS 701 [facility] [address]5.[address] [place], [place] [address] Jade Goode RD, LD 701 [facility] [address] [place], [place] [address] Encounter for pre-transplant evaluation for kidney transplant [...] 35.4 inches (90 cm) for South , Amharic, or Yakut [email or web address].harvard.edu/nqyyxxz-sanxtmpxov-zdbbpx/wunxn-elbwrbechtevk-ieakv dyxfe-ian-dufwksabh-ethnic-groups/ Waist to Height Ratio (W:HtR): 0.63 (11/20/2023) Estimation of T2DM, HTN, CVD, and mortality risk due to central adiposity (questionable accuracy when BMI>35) 0.4 to 0.49 (no indication of increased health risks due to central adiposity) 0.5 to 0.59 (increased health risks due to increased central adiposity) 0.6 or more (further increased health risks due to high central adiposity) https://www.nice.org.uk/guidance/cg189/chapter/Recommendations#hgnwwxwmciu-qmy-x zcljeesb-fadcatliku-khhgkne-kfr-pggzulo-upbzbljoi (Clinical guideline [CG189] last updated 03 November 2021) Hand Casting Finisher Strength (HGS) Examination ([place] Society of Hand Therapists 2016) Equipment: Automatic Agency Hydraulic Hand Dynamometer [id number] Test Hand Date Readings in pounds force Patient Mean Normal (mean for age & sex) Alert Level (minus 2 SD for age & sex) Right hand 11/20/2023 85, 85, 94 88 116.8 75.4 Left hand 11/20/2023 Dialysis access NA 112.8 75.4 Patient Position: Seated upright in chair, arms bent at 90 degrees Patient agreed to exam. Patient tolerated exam. Reference ranges p.5: https://www.[employer]/Downloads/JAMARHandDynamometer.pdf Frailty Screen: 1. How many days in [...] 0) Weight Loss Score = 0 4. Casting Finisher Strength (dominant hand): Normal HGS for BMI [...] to 29 : <=39.5# >29 : <=46# Casting Finisher Strength Score = 0 5. Walk Time [...] Mortality (Tristen Oconnell et farzaneh, J [employer]2017) Social History: Alcohol: none with illness, [...] Pre-tx info session Accompanied by Daughter Becki Data Acquisition Technician NA Prior MNT Dialysis RD CDCES yrs [...] Meals out: 1 x wk - maybe senegalese Usual fluid intake / 24 hr ~2 [...] Insecurity: No Food Insecurity (06/04/2023) [facility] [employer] [facility] [employer] [facility] Food Insecurity Worried About Running Out [...] 12/03/2023 9:58 AM Certified Clinical Transplant Dietitian [employer] [phone] documented in this encounter Plan of Treatment Upcoming Encounters Date Type Department Care Team (Late st Contact Info) Description 12/18/2023 11:00 AM CDT Office Visit Clinic & Specialty Center Cardiology Clinic [address] [address] Denae Mckeon MD [address] [place], [place] [address] Scheduled Discharge Disposition: Discharged to home or self care 01/01/2024 2:00 PM APPLICATION CHEMIST Office Visit Transplant Program 701 [facility] [address] [place], [place] [address] Ning Leiva MD [address] [place] [address] Scheduled Discharge Disposition: Discharged to home or self care documented as of this encounter Visit Diagnoses Diagnosis Encounter for pre-transplant evaluation for kidney transplant- Primary documented in this encounter
--- OUTSIDE RECORDS SUMMARY | 2023-12-13 13:26 | XMS_ITS | Encounter Summary ---
Author Organization [facility] Address [address] [place] [address] Phone Care Team Providers Care Wellhead Pumper Name Role Phone Unavailable Primary Care Provider [...] & Specialty Center Cardiology Clinic [address] [place] [address] Denae Mckeon MD [address] [place] [address] Scheduled Discharge Disposition: Discharged to home or self care 01/01/2024 2:00 PM CHINA DECORATOR Office Visit Transplant Program [address] [place] [address] Ning Lieva MD [address] [place] [address] Scheduled Discharge Disposition: Discharged to home or self care documented as of this encounter Visit Diagnoses Not on filedocumented in this encounter
--- OUTSIDE RECORDS SUMMARY | 2023-12-13 13:26 | XMS_ITS | Clinical Summary ---
Author Organization [facility] Address [address] [place] [address] Phone Care Team Providers Care Plant Tour Guide Name Role Phone Unavailable Primary Care Provider Unavailabl e Source Comments Smava is fully rolled out on [employer]. Last update 07/31/08.[facility] Allergies Active Allergy Reactions Criticality Noted Date [...] to chronic kidney disease, on chronic dialysis ([facility]) 10/13/2022 Anxiety 10/13/2022 HTN (hypertension) 09/15/2022 Diabetes mellitus ([facility]) 01/27/2002 Encounters Date Type Department Care Team Description 11/22/2023 Orders Only Transplant Program [address] [place] [address] Chinyere Valencia RN Pre-transplant evaluation for ESRD (end stage renal disease) (Primary Dx) 11/21/2023 Abstract Transplant Program [address] [place] [address] Chinyere Valencia RN 11/20/2023 2:30 PM CDT Nurse Only Transplant Program [address] [place] [address] Neva Carbajal MBBS Rn, [facility]-Pre Recipient Chronic kidney disease (Primary Dx) Discharge Disposition: Discharged to home or self care 11/20/2023 1:30 PM CDT Office Visit Transplant Program [address] [place] [address] Neva Carbajal MBBS Gjesvold, Donna E, RD, LD Encounter for pre-transplant evaluation for kidney transplant (Primary Dx) Discharge Disposition: Discharged to home or self care 11/20/2023 12:29 PM CDT - 11/20/2023 11:59 PM CDT Hospital Encounter [facility] XRAY [address] [place] [address] Blayne Quiroz MD Discharge Disposition: Discharged to home or self care 11/20/2023 12:08 PM CDT - 11/20/2023 11:59 PM CDT Hospital Encounter [facility] CT [address] [place] [address] Blayne Quiroz MD Discharge Disposition: Discharged to home or self care 11/20/2023 9:57 AM CDT - 11/20/2023 11:59 PM CDT Hospital Encounter [facility] EKG [address] [place] [address] Blayne Quiroz MD Day Care Center Director, Ekg Discharge Disposition: Discharged to home or self care 11/20/2023 9:55 AM CDT - 11/20/2023 11:59 PM CDT Hospital Encounter [facility] Echo Lab [address] [place] [address] Blayne Quiroz MD Alvarado, Michelle, DENTAL TECHNICIAN APPRENTICE Jerel Pena, farm equipment engine mechanic Disposition: Discharged to home or self care 11/20/2023 Travel 11/01/2023 Documentation Only Transplant Program [address] [place] [address] Williams Lindquist Transplant Lining Inserter 10/03/2023 Documentation Only Transplant Program [address] [place] [address] Williams Lindquist Transplant Lining Inserter 09/26/2023 Abstract Transplant Program [address] [place] [address] Williams Lindquist Transplant Lining Inserter from Last 3 Months Social History Tobacco [...] [facility]ty Center Cardiology Clinic [address] [address] Denae Mckeon MD 701 [facility] [address] [place] [address] Scheduled Discharge Disposition: Discharged to home or self care 01/01/2024 2:00 PM PRODUCTION CONTROL EXPERT Office Visit Transplant Program [address] [facility] [address] [place] [address] Ning Leiva MD 701 [facility] [address] [place], [place] [address] Scheduled Discharge Disposition: Discharged to home or [...] Donor, Chagas Screen Non Reactive Non Reactive [facility] [facility] Blood 11/20/2023 1:20 PM CDT 11/23/2023 11:23 AM CDT [facility] Performing Organization Address City/[facility]/ZIP Co de Phone Number [employer] [address] [place] [address] * COCCIDIOIDES AB SCREEN WITH REFLEX (11/20/2023 1:20 PM CDT) Coccidioides Antibody Negative Negative [facility] [address] [facility] Comment: Repeat testing on a new sample in 2-3 weeks if clinically indicated. ADDITIONAL INFORMATION This test has been modified from the critical care clinical nurse specialist's instructions. Its performance characteristics were determined by [facility] in a manner consistent with CLIA requirements. This test has not been cleared or approved by the U.S. Food and Drug Administration. Test Performed by: [facility] - [address] [address] Designer Writer: Sawyer Alejandre Ph.D.; CLIA# [id number] Serum 11/20/2023 1:20 PM CDT 11/20/2023 2:24 PM CDT Narrative [facility] [email or web address] [employer] [facility] - 11/21/2023 8:16 PM CDT Bill to Corporate Kidney Acquisition Account Neva Carbajal [facility] Performing Organization Address City/[facility]/ZIP Co de Phone Number [facility] [email or web address] [address] [facility] [address] [place] [address] * (ABNORMAL) QUANTIFERON-TB GOLD PLUS (11/20/2023 1:20 PM CDT) Pathologist [facility] QuantiFERON TB Gold Plus Positive( A) Negative [facility] QFT TB 1 0.19 [facility] QFT TB 2 0.35 [facility] QFT TB MITOGEN 9.94 [facility] QFT NIL 0.06 [facility] Blood 11/20/2023 1:20 PM CDT 11/22/2023 7:34 AM CDT Narrative [facility] - 11/22/2023 10:36 AM CDT Bill to Corporate Kidney Acquisition ??Account [facility] [address] [address] * HIV COMBO (11/20/2023 1:20 PM CDT) [facility] HIV Antigen-Antibody Nonreactive Nonreactive [facility] Comment:Performance characte ristics have not been established with this test on patients less than 2 years of age. Blood 11/20/2023 1:20 PM CDT 11/20/2023 2:24 PM CDT Narrative [facility] - 11/20/2023 3:20 PM CDT Bill to Corporate Kidney Acquisition Account [facility] Performing Organization Address City/[facility]/ZIP Co de Phone Number [facility] [address] [address] * HEPATITIS B CORE TOTAL THEE (11/20/2023 1:20 PM CDT) Pathologist [facility] HBV Core Total Thee Nonreactive Nonreactive [facility] Blood 11/20/2023 1:20 PM CDT 11/20/2023 3:41 PM CDT Narrative [facility] - 11/20/2023 4:11 PM CDT Bill to Corporate Kidney Acquisition Account [facility] Performing Organization Address City/[facility]/ZIP Co de Phone Number [facility] [address] [address] * (ABNORMAL) CBC WITH PLTS/AUTO DIFF (11/20/2023 1:20 PM CDT) WBC 4.75 4.00 - 10.00 k/cmm [facility] RBC 2.54(L) 4.60 - 6.00 m/cmm [facility] Hgb 8.4(L) 13.1 - 17.5 g/dL [facility] Hematocrit 24.7(L) 40.0 - 51.0 % [facility] MCV 97.2 80.0 - 100.0 fL [facility] MCH 33.1(H) 25.0 - 32.0 pg [facility] MCHC 34.0 31.0 - 36.0 g/dL [facility] RDW 14.5 11.5 - 14.5 % [facility] Plt 92(L) 150 - 400 k/cmm [facility] MPV 11.6 6.5 - 12.5 fL [facility] Automated Abs Neutrophil 3.10 1.70 - 6.50 k/cmm [facility] Comment:Preliminary ANC, Fin al Result to Follow Abs Immature Granulocyte 0.01 0.00 - 0.09 k/cmm [facility] Comment:The Immature Granulo cyte Absolute count contains metamyelocytes and myelocytes. Abs Neutrophil 3.10 1.70 - 6.50 k/cmm [facility] Abs Lymphocyte 1.09 0.80 - 4.00 k/cmm [facility] Abs Monocyte 0.41 0.20 - 1.00 k/cmm [facility] Abs Eosinophil 0.13 0.00 - 0.60 k/cmm [facility] Abs Basophil 0.01 0.00 - 0.20 k/cmm [facility] Blood 11/20/2023 1:20 PM CDT 11/20/2023 2:24 PM CDT Narrative [facility] - 11/20/2023 2:35 PM CDT Bill to Corporate Kidney Acquisition ??Account [facility] [address] [place] [address] * VARICELLA-ZOSTER VIRUS (VZV) ANTIBODY, IGG (11/20/2023 1:20 PM CDT) VZV Ab, IgG Positive [facility] Comment:Positive results ind icate current or past exposure to Varicella-Zoster virus or prior immunization. Blood 11/20/2023 1:20 PM CDT 11/20/2023 2:24 PM CDT Narrative [facility] - 11/21/2023 9:03 AM CDT Bill to Corporate Kidney Acquisition ??Account [facility] Performing Organization Address City/[facility]/ZIP Co de Phone Number [facility] [address] [address] * MEASLES VIRUS (RUBEOLA) ANTIBODY, IGG (11/20/2023 1:20 PM CDT) Measles Ab, IgG Index 116.00 AU/ml [facility] Measles Ab, IgG Positive [facility] Comment:Positive results (>= 16.5) indicate current or past exposure to Measles virus or prior immunization. Blood 11/20/2023 1:20 PM CDT 11/20/2023 2:24 PM CDT Narrative [facility] - 11/21/2023 9:03 AM CDT Bill to Corporate Kidney Acquisition ??Account [facility] Performing Organization Address [facility] Co de Phone Number [facility] [address] [address] * RPR SYPHILIS SCREEN (11/20/2023 1:20 PM CDT) RPR Screen Non-Reactive Non-Reacti ve [facility] RPR Titer Not Reflexed [facility] Blood 11/20/2023 1:20 PM CDT 11/21/2023 10:14 AM CDT Narrative [facility] - 11/21/2023 11:32 AM CDT Bill to Corporate Kidney Acquisition ??Account [facility] [address] [address] * PROTHROMBIN (PT) & INR (11/20/2023 1:20 PM CDT) PT 11.6 9.0 - 12.5 sec [facility] INR 1.0 0.8 - 1.1 [facility] Comment: Warfarin Therapeutic Range: Standard Intensity: 2.0 - 3.0 High Intensity: 2.5 - 3.5 Blood 11/20/2023 1:20 PM CDT 11/20/2023 2:25 PM CDT Narrative [facility] - 11/20/2023 2:54 PM CDT Bill to Corporate Kidney Acquisition Account [facility] [address] [address] * PHOSPHORUS (11/20/2023 1:20 PM CDT) Pathologist [facility] Phosphorus 3.6 2.5 - 4.5 mg/dL [facility] Blood 11/20/2023 1:20 PM CDT 11/20/2023 2:24 PM CDT Narrative [facility] - 11/20/2023 2:49 PM CDT Bill to Corporate Kidney Acquisition ??Account [facility] [address] [address] * HEPATITIS C ANTIBODY (11/20/2023 1:20 PM CDT) Hep C Thee Nonreactive Nonreactive [facility] Comment:Performance characte ristics have not been established with this test on patients less than 10 years of age. Blood 11/20/2023 1:20 PM CDT 11/20/2023 2:24 PM CDT Narrative [facility] - 11/20/2023 3:19 PM CDT Bill to Corporate Kidney Acquisition ??Account [facility] Performing Organization Address City/[facility]/ZIP Co de Phone Number [facility] [address] [address] * HEPATITIS B SURFACE ANTIGEN (11/20/2023 1:20 PM CDT) HBV Surface Ag Nonreactive Nonreactive [facility] Comment: Testing performed at: [facility] [address] [address] Blood 11/20/2023 1:20 PM CDT 11/20/2023 2:24 PM CDT Narrative [facility] - 11/20/2023 3:19 PM CDT Bill to Corporate Kidney Acquisition ??Account [facility] Performing Organization Address [place]/[facility] Co de Phone Number [address] [address] * HEPATITIS B SURFACE ANTIBODY (11/20/2023 1:20 PM CDT) HBsAb Quant 83.42 mIU/ml [facility] Comment: The Hepatitis B Surface Antibody quantitation is greater than or equal to 12.00 mIU/mL. This patient has either had an antibody response to a hepatitis B vaccination, received a transfusion or has recovered from a hepatitis B infection. This patient should be considered immune to hepatitis B. HBsAb Interpretation Reactive [facility] Blood 11/20/2023 1:20 PM CDT 11/20/2023 2:24 PM CDT Narrative [facility] - 11/20/2023 3:19 PM CDT Bill to Corporate Kidney Acquisition ??Account [facility] Performing Organization Address City/[facility]/ZIP Co de Phone Number [facility] [address] [address] * GGT (11/20/2023 1:20 PM CDT) GGT 13 10 - 71 IU/L [facility] Blood 11/20/2023 1:20 PM CDT 11/20/2023 2:24 PM CDT Narrative [facility] - 11/20/2023 2:49 PM CDT Bill to Corporate Kidney Acquisition ??Account [facility] [address] [place] [address] * (ABNORMAL) EBV VCA IGG (11/20/2023 1:20 PM CDT) EBV Ab VCA IGG >750.0(H) 0.0 - 21.9 U/mL [employer] Comment: INTERPRETIVE INFORMATION: Parveen-Monsalve Virus Antibody to ?Viral Capsid Antigen, IgG ??17.9 U/mL or less.......Not Detected ??18.0-21.9 U/mL..........Indeterminate - Repeat testing in ?10-14 days may be helpful. ??22.0 U/mL or greater....Detected Performed By: [facility] [address] [place] [address] Spa Concierge: [place] Prajapati MD, PhD CLIA Number: [id number] PARVEEN-MONSALVE VIRUS ANTIBODY TO VIRAL CAPSID ANTIGEN IGG REFERENCE INTERVAL: EFFECTIVE 10/11/09 NEGATIVE: ??17.9 U/ML OR LESS EQUIVOCAL: 18.0 - 21.9 U/ML POSITIVE: ??22.0 U/ML OR GREATER Serum 11/20/2023 1:20 PM CDT 11/20/2023 2:24 PM CDT Narrative [facility] - 11/21/2023 7:21 PM CDT Bill to Corporate Kidney Acquisition ??Account [facility] Performing Organization Address City/[facility]/ZIP Co de Phone Number [employer] [address] [place] [address], * CALCIUM, TOTAL (11/20/2023 1:20 PM CDT) Calcium 8.6 8.6 - 10.0 mg/dL [facility] Blood 11/20/2023 1:20 PM CDT 11/20/2023 2:24 PM CDT Narrative [facility] - 11/20/2023 2:49 PM CDT Bill to Corporate Kidney Acquisition ??Account [facility] [address] [address] * BILIRUBIN, TOTAL (ONLY) (11/20/2023 1:20 PM CDT) Bili Total 0.5 <=1.2 mg/dL [facility] Blood 11/20/2023 1:20 PM CDT 11/20/2023 2:24 PM CDT Narrative [facility] - 11/20/2023 2:49 PM CDT Bill to Corporate Kidney Acquisition ??Account [facility] Performing Organization Address City/[facility]/ZIP Co de Phone Number [facility] [address] [address] * AST (SGOT) (11/20/2023 1:20 PM CDT) AST(SGOT) 15 5 - 40 IU/L [facility] Blood 11/20/2023 1:20 PM CDT 11/20/2023 2:24 PM CDT Narrative [facility] - 11/20/2023 2:49 PM CDT Bill to Corporate Kidney Acquisition ??Account [facility] Performing Organization Address City/[facility]/ZIP Co de Phone Number [facility] [address] [address] * PTT (APTT) (11/20/2023 1:20 PM CDT) APTT 33.4 25.0 - 37.0 sec [facility] Blood 11/20/2023 1:20 PM CDT 11/20/2023 2:25 PM CDT Narrative [facility] - 11/20/2023 2:54 PM CDT Bill to Corporate Kidney Acquisition Account [facility] [address] [address] * ALT (SGPT) (11/20/2023 1:20 PM CDT) Pathologist [facility] ALT (SGPT) 9 <=41 IU/L [facility] Blood 11/20/2023 1:20 PM CDT 11/20/2023 2:24 PM CDT Narrative [facility] - 11/20/2023 2:49 PM CDT Bill to Corporate Kidney Acquisition ??Account [facility] Performing Organization Address [facility] Co de Phone Number [facility] [address] [address] * ALKALINE PHOSPHATASE (11/20/2023 1:20 PM CDT) Alk Phos 118 40 - 129 IU/L [facility] Comment:No reference range e stablished for patients <18 years old. Blood 11/20/2023 1:20 PM CDT 11/20/2023 2:24 PM CDT Narrative [facility] - 11/20/2023 2:49 PM CDT Bill to Corporate Kidney Acquisition ??Account [facility] Performing Organization Address City/[facility]/ZIP Co de Phone Number [facility] [address] [address] * ALBUMIN (11/20/2023 1:20 PM CDT) Albumin 4.3 3.8 - 5.1 g/dL [facility] Blood 11/20/2023 1:20 PM CDT 11/20/2023 2:24 PM CDT Narrative [facility] - 11/20/2023 2:49 PM CDT Bill to Corporate Kidney Acquisition ??Account [facility] Performing Organization Address City/[facility]/ZIP Co de Phone Number [address] [address] * BLOOD TYPING-ABO/RH (11/20/2023 1:20 PM CDT) ABORHG O POS [facility] Blood 11/20/2023 1:20 PM CDT 11/20/2023 2:29 PM CDT Narrative [facility] - 11/20/2023 3:06 PM CDT Bill to Corporate Kidney Acquisition ??Account [facility]a [facility] TRANSFUSION SER VICES Performing Organization Address City/[facility]/ZIP Co de Phone Number [facility] [address] [address] * XR CHEST 2 VIEWS PA + [...] Shilo Cronin Blayne CARIAS CT BODY * [facility] EXERCISE STRESS ECHO COMPLETE WITH CONTRAST [...] ? 67.01 Inches MACO Patient Number ?? [id number] ?Weight ? 205 Pounds Date of ?1980 ? BSA ?2.04 m^2 Age ?43 ? Tape Number: Gender ? Male ? Study Date ? 11/20/2023 10:51 AM Lamp Shades Supervisor ?MA ? Ordering Provider ??CORBY CARUSO Referring ? Interpreting ? Hue Flynn MD Physician ? Physician ?[id number] Type of Study: Stress procedure: [facility] EXERCISE STRESS ECHO, Color Doppler, Spectral [...] HR: 176 bpm ? HR BP Product: 05197 % of predicted HR: 62 ? Max [...] EMIL Height 67.01 Inches MACO Patient Number [id number] Weight 205 Pounds Date of 1980 BSA 2.04 m^2 Age 43 Tape Number: Gender Male Study Date 11/20/2023 10:51 AM Lamp Shades Supervisor MA Ordering Provider CORBY CARUSO Referring Interpreting Hue Flynn MD Physician Physician [id number] Type of Study: Stress procedure: ECH EXERCISE [...] Quiroz MD RAD ECHO Performing Organization Address [facility] Co de Phone Number [facility] HEARTLAB * EKG ADULT (12-LEAD) (11/20/2023 10:46 AM CDT) 11/20/2023 10:4 6 AM CDT Impressions [facility] CVIS EKG ORDERS - 11/20/2023 10:46 AM CDT SINUS RHYTHM NORMAL ECG No previous ECG available for comparison. P-R Interval 174 ms QRS Interval 93 ms QT Interval 367 ms QTC Interval 409 ms P [place] 46 QRS [place] 61 T Wave [place] 68 Narrative Procedure Note Jean Liu MD - 11/20/2023 IMPRESSION SINUS RHYTHM NORMAL ECG No previous ECG available for comparison. P-R Interval 174 ms QRS Interval 93 ms QT Interval 367 ms QTC Interval 409 ms P [place] 46 QRS [place] 61 T Wave [place] 68 Blayne Quiroz MD EKG [facility] CVIS EKG ORDERS from Last 3 Months CORPORATE,KIDNEY ACQUISITION COST-CURRENT NEW Corporate Other 05/26/2020 Attn Williams Lindquist [facility] [address] [place] [address]
--- OUTSIDE RECORDS SUMMARY | 2023-12-13 13:26 | XMS_ITS | Encounter Summary ---
Author Organization [facility] Address [address] [place] [address] Phone Care Team Providers Care Brief Writer Name Role Phone Unavailable Primary Care Provider Unavailabl e Encounter Details Date Type Department Care Team (Latest Contact Info) Description 11/20/2023 12:29 PM CDT - 11/20/2023 11:59 PM CDT Hospital Encounter [facility] [address] [place], [place] [id number] Blayne Quiroz MD [address] [id number] Discharge Disposition: Discharged to home or self [...] & Specialty Center Cardiology Clinic [address] [address] Denae Mckeon MD 701 [facility] [address] [place] [address] Scheduled Discharge Disposition: Discharged to home or self care 01/01/2024 2:00 PM DIRECTOR BUSINESS INTEGRATION Office Visit Transplant Program 701 [facility] [address] [place] [address] Ning Leiva MD 701 [facility] [address] [place] [address] Scheduled Discharge Disposition: Discharged to home or [...]
--- OUTSIDE RECORDS SUMMARY | 2023-12-13 13:26 | XMS_ITS | Encounter Summary ---
Author Organization [facility] Address [address] [place] [address] Phone Care Team Providers Care Continuous Mining Machine Lode Miner Name Role Phone Unavailable Primary Care Provider Unavailabl e Encounter Details Date Type Department Care Team (Late st Contact Info) Description 11/21/2023 Abstract Transplant Program [address] [place] [address] [address] [place] [address] Chinyere Valencia RN [facility] [address] [place] [address] Social History Tobacco Use Types Packs/Day Years [...] Clinic & Specialty Center Cardiology Clinic [address] [address] Denae Mckeon MD [address] [place] [address] [address] [place] [address] Scheduled Discharge Disposition: Discharged to home or self care 01/01/2024 2:00 PM DISCOVERY GUIDE Office Visit Transplant Program [address] [place] [address] [address] [place] [address] Ning Leiva MD 701 [facility] [address] [place] [address] Scheduled Discharge Disposition: Discharged to home or self care documented as of this encounter Visit Diagnoses Not on filedocumented in this encounter
--- OUTSIDE RECORDS SUMMARY | 2023-12-13 13:26 | XMS_ITS | Referral Summary ---
Author Organization [facility] Address [address] [place] [address] Phone Care Team Providers Care Tube Winder Hand Name Role Phone Unavailable Primary Care Provider Unavailabl e Source Comments Dahu is fully rolled out on Ceon. Last update 07/31/08.Klooff Encounters Date Type Department Care Team Description 11/22/2023 Orders Only Transplant Program [address] [place] [address] Chinyere Valencia, OLGA LIDIA Pre-transplant evaluation for ESRD (end stage renal disease) (Primary Dx) 11/21/2023 Abstract Transplant Program [address] [place] [address] Chinyere Valencia RN 11/20/2023 9:57 AM CDT - 11/20/2023 11:59 PM CDT Hospital Encounter [facility] [address] [place] [address] Blayne Quiroz MD Rehabilitation Aide, Ekg Discharge Disposition: Discharged to home or self care 11/20/2023 Travel 11/20/2023 2:30 PM CDT Nurse Only Transplant Program [address] [place] [address] Neva Carbajal MBBS Rn, [facility]-Pre Recipient Chronic kidney disease (Primary Dx) Discharge Disposition: Discharged to home or self care 11/20/2023 1:30 PM CDT Office Visit Transplant Program [address] [place] [address] Neva Carbajal MBBS Gjesvold, Donna E, RD, LD Encounter for pre-transplant evaluation for kidney transplant (Primary Dx) Discharge Disposition: Discharged to home or self care 11/20/2023 12:29 PM CDT - 11/20/2023 11:59 PM CDT Hospital Encounter [facility] [address] [place] [address] Blayne Quiroz MD Discharge Disposition: Discharged to home or self care 11/20/2023 12:08 PM CDT - 11/20/2023 11:59 PM CDT Hospital Encounter [facility] [place] [address] [place] [address] Blayne Quiroz MD Discharge Disposition: Discharged to home or self care 11/20/2023 9:55 AM CDT - 11/20/2023 11:59 PM CDT Hospital Encounter [facility] Echo Lab [address] [place] [address] Blayne Quiroz MD Alvarado, Michelle, SURFACE HYDROLOGIST Jerel Pena, mobile designer Disposition: Discharged to home or self care 11/01/2023 Documentation Only Transplant Program [address] [place] [address] Williams Lindquist Transplant Dixonac Operator 10/03/2023 Documentation Only Transplant Program [address] [place] [address] Williams Lindquist Transplant Dixonac Operator 09/26/2023 Abstract Transplant Program [address] [place] [address] Williams Lindquist Transplant Dixonac Operator from Last 3 Months Allergies Active [...] disease, on chronic dialysis ([facility]) 10/13/2022 Anxiety 10/13/2022 HTN (hypertension) 09/15/2022 Diabetes mellitus ([facility]) 01/27/2002 Social History Tobacco Use Types [...] [facility] Card[facility] [address] [address] Denae Mckeon MD 701 [facility] [address] [place] [address] Scheduled Discharge Disposition: Discharged to home or self care 01/01/2024 2:00 PM SODIUM CHLORITE OPERATOR Office Visit Transplant Program 701 [facility] [address] [place] [address] Ning Leiva MD 701 [facility] [address] [place], [place] [address] Scheduled Discharge Disposition: Discharged to home or [...] Donor, Chagas Screen Non Reactive Non Reactive [employer] [facility] [employer] Blood 11/20/2023 1:20 PM CDT 11/23/2023 11:23 AM CDT [facility] [employer] [address] [place] [address] * COCCIDIOIDES AB SCREEN WITH REFLEX (11/20/2023 1:20 PM CDT) Pathologist [facility] Coccidioides Antibody Negative Negative [facility] Comment: Repeat testing on a new sample in 2-3 weeks if clinically indicated. ADDITIONAL INFORMATION This test has been modified from the stunt woman's instructions. Its performance characteristics were determined by [facility] in a manner consistent with CLIA requirements. This test has not been cleared or approved by the U.S. Food and Drug Administration. Test Performed by: [facility] [address] [place] [address] Agile Tester: Sawyer Alejandre Ph.D.; CLIA# [id number] Serum 11/20/2023 1:20 PM CDT 11/20/2023 2:24 PM CDT Narrative [facility] - 11/21/2023 8:16 PM CDT Bill to Corporate Kidney Acquisition Account [facility] [address] [place] [address] * (ABNORMAL) QUANTIFERON-TB GOLD PLUS (11/20/2023 1:20 PM CDT) QuantiFERON TB Gold Plus Positive( A) Negative [facility] QFT TB 1 0.19 [facility] QFT TB 2 0.35 [facility] QFT TB MITOGEN 9.94 [facility] QFT NIL 0.06 [facility] Blood 11/20/2023 1:20 PM CDT 11/22/2023 7:34 AM CDT Narrative [facility] - 11/22/2023 10:36 AM CDT Bill to Corporate Kidney Acquisition ??Account [facility] Performing Organization Address City/[facility]/ZIP Co de Phone Number [facility] [address] [address] * HIV COMBO (11/20/2023 1:20 PM CDT) Pathologist [facility] HIV Antigen-Antibody Nonreactive Nonreactive [facility] Comment:Performance characte ristics have not been established with this test on patients less than 2 years of age. Blood 11/20/2023 1:20 PM CDT 11/20/2023 2:24 PM CDT Narrative [facility] - 11/20/2023 3:20 PM CDT Bill to Corporate Kidney Acquisition Account [facility] [address] [address] * HEPATITIS B CORE TOTAL THEE (11/20/2023 1:20 PM CDT) Pathologist [facility] HBV Core Total Thee Nonreactive Nonreactive [facility] Blood 11/20/2023 1:20 PM CDT 11/20/2023 3:41 PM CDT Narrative [facility] - 11/20/2023 4:11 PM CDT Bill to Corporate Kidney Acquisition Account [facility] [address] [address] * (ABNORMAL) CBC WITH PLTS/AUTO DIFF (11/20/2023 1:20 PM CDT) [facility] WBC 4.75 4.00 - 10.00 k/cmm [facility] RBC 2.54(L) 4.60 - 6.00 m/cmm [facility] Hgb 8.4(L) 13.1 - 17.5 g/dL [facility] Hematocrit 24.7(L) 40.0 - 51.0 % [facility] MCV 97.2 80.0 - 100.0 fL [facility] MCH 33.1(H) 25.0 - 32.0 pg [facility] MCHC 34.0 31.0 - 36.0 g/dL [facility] RDW 14.5 11.5 - 14.5 % [facility] Plt 92(L) 150 - 400 k/cmm [facility] MPV 11.6 6.5 - 12.5 fL [facility] Automated Abs Neutrophil 3.10 1.70 - 6.50 k/cmm [facility] Comment:Preliminary ANC, Fin al Result to Follow Abs Immature Granulocyte 0.01 0.00 - 0.09 k/cmm [facility] Comment:The Immature Granulo cyte Absolute count contains metamyelocytes and myelocytes. Abs Neutrophil 3.10 1.70 - 6.50 k/cmm [facility] Abs Lymphocyte 1.09 0.80 - 4.00 k/cmm [facility] Abs Monocyte 0.41 0.20 - 1.00 k/cmm [facility] Abs Eosinophil 0.13 0.00 - 0.60 k/cmm [facility] Abs Basophil 0.01 0.00 - 0.20 k/cmm [facility] Blood 11/20/2023 1:20 PM CDT 11/20/2023 2:24 PM CDT Narrative [facility] - 11/20/2023 2:35 PM CDT Bill to Corporate Kidney Acquisition ??Account [facility] Performing Organization Address City/[facility]/ZIP Co de Phone Number [facility] [address] [address] * VARICELLA-ZOSTER VIRUS (VZV) ANTIBODY, IGG (11/20/2023 1:20 PM CDT) VZV Ab, IgG Positive [facility] Comment:Positive results ind icate current or past exposure to Varicella-Zoster virus or prior immunization. Blood 11/20/2023 1:20 PM CDT 11/20/2023 2:24 PM CDT Narrative [facility] - 11/21/2023 9:03 AM CDT Bill to Corporate Kidney Acquisition ??Account [facility] Performing Organization Address [facility] Co de Phone Number [facility] [address] [address] * MEASLES VIRUS (RUBEOLA) ANTIBODY, IGG (11/20/2023 1:20 PM CDT) Measles Ab, IgG Index 116.00 AU/ml [facility] Measles Ab, IgG Positive [facility] Comment:Positive results (>= 16.5) indicate current or past exposure to Measles virus or prior immunization. Blood 11/20/2023 1:20 PM CDT 11/20/2023 2:24 PM CDT Narrative [facility] - 11/21/2023 9:03 AM CDT Bill to Corporate Kidney Acquisition ??Account [facility] [address] [address] * RPR SYPHILIS SCREEN (11/20/2023 1:20 PM CDT) RPR Screen Non-Reactive Non-Reacti ve [facility] RPR Titer Not Reflexed [facility] Blood 11/20/2023 1:20 PM CDT 11/21/2023 10:14 AM CDT Narrative [facility] - 11/21/2023 11:32 AM CDT Bill to Corporate Kidney Acquisition ??Account [facility] [address] [address] * PROTHROMBIN (PT) & INR (11/20/2023 1:20 PM CDT) PT 11.6 9.0 - 12.5 sec [facility] INR 1.0 0.8 - 1.1 [facility] Comment: Warfarin Therapeutic Range: Standard Intensity: 2.0 - 3.0 High Intensity: 2.5 - 3.5 Blood 11/20/2023 1:20 PM CDT 11/20/2023 2:25 PM CDT Narrative [facility] - 11/20/2023 2:54 PM CDT Bill to Corporate Kidney Acquisition Account [facility] Performing Organization Address [facility] Co de Phone Number [facility] [address] [address] * PHOSPHORUS (11/20/2023 1:20 PM CDT) Phosphorus 3.6 2.5 - 4.5 mg/dL [facility] Blood 11/20/2023 1:20 PM CDT 11/20/2023 2:24 PM CDT Narrative [facility] - 11/20/2023 2:49 PM CDT Bill to Corporate Kidney Acquisition ??Account [facility] Performing Organization Address City/[facility]/ZIP Co de Phone Number [facility] [address] [address] * HEPATITIS C ANTIBODY (11/20/2023 1:20 PM CDT) Hep C Thee Nonreactive Nonreactive [facility] Comment:Performance characte ristics have not been established with this test on patients less than 10 years of age. Blood 11/20/2023 1:20 PM CDT 11/20/2023 2:24 PM CDT Narrative [facility] - 11/20/2023 3:19 PM CDT Bill to Corporate Kidney Acquisition ??Account [facility] Performing Organization Address City/[facility]/ZIP Co de Phone Number [facility] [address] [address] * HEPATITIS B SURFACE ANTIGEN (11/20/2023 1:20 PM CDT) HBV Surface Ag Nonreactive Nonreactive [facility] Comment: Testing performed at: [facility] [address] [address] Blood 11/20/2023 1:20 PM CDT 11/20/2023 2:24 PM CDT Narrative [facility] - 11/20/2023 3:19 PM CDT Bill to Corporate Kidney Acquisition ??Account [facility] Performing Organization Address City/[facility]/ZIP Co de Phone Number [address] [address] * HEPATITIS B SURFACE ANTIBODY (11/20/2023 1:20 PM CDT) HBsAb Quant 83.42 mIU/ml [facility] Comment: The Hepatitis B Surface Antibody quantitation is greater than or equal to 12.00 mIU/mL. This patient has either had an antibody response to a hepatitis B vaccination, received a transfusion or has recovered from a hepatitis B infection. This patient should be considered immune to hepatitis B. HBsAb Interpretation Reactive [facility] Blood 11/20/2023 1:20 PM CDT 11/20/2023 2:24 PM CDT Narrative [facility] - 11/20/2023 3:19 PM CDT Bill to Corporate Kidney Acquisition ??Account Nevauziel Jangmeenu [facility] Performing Organization Address City/[facility] Co de Phone Number [facility] [address] [address] * GGT (11/20/2023 1:20 PM CDT) [facility] GGT 13 10 - 71 IU/L [facility] Blood 11/20/2023 1:20 PM CDT 11/20/2023 2:24 PM CDT Narrative [facility] - 11/20/2023 2:49 PM CDT Bill to Corporate Kidney Acquisition ??Account Nevauziel Carbajal [facility] Performing Organization Address [facility]/RUST de Phone Number [facility] [address] [address] * (ABNORMAL) EBV VCA IGG (11/20/2023 1:20 PM CDT) [facility] EBV Ab VCA IGG >750.0(H) 0.0 - 21.9 U/mL [employer] Comment: INTERPRETIVE INFORMATION: Parveen-Monsalve Virus Antibody to ?Viral Capsid Antigen, IgG ??17.9 U/mL or less.......Not Detected ??18.0-21.9 U/mL..........Indeterminate - Repeat testing in ?10-14 days may be helpful. ??22.0 U/mL or greater....Detected Performed By: [employer] [address] [place] [address] Digital Production Manager: Salinas Prajapati MD, PhD CLIA Number: [id number] PARVEEN-MONSALVE VIRUS ANTIBODY TO VIRAL CAPSID ANTIGEN IGG REFERENCE INTERVAL: EFFECTIVE 10/11/09 NEGATIVE: ??17.9 U/ML OR LESS EQUIVOCAL: 18.0 - 21.9 U/ML POSITIVE: ??22.0 U/ML OR GREATER Serum 11/20/2023 1:20 PM CDT 11/20/2023 2:24 PM CDT Narrative [facility] - 11/21/2023 7:21 PM CDT Bill to Corporate Kidney Acquisition ??Account [facility] [employer] [address] [place] [address], * CALCIUM, TOTAL (11/20/2023 1:20 PM CDT) Calcium 8.6 8.6 - 10.0 mg/dL [facility] Blood 11/20/2023 1:20 PM CDT 11/20/2023 2:24 PM CDT Narrative [facility] - 11/20/2023 2:49 PM CDT Bill to Corporate Kidney Acquisition ??Account [facility] Performing Organization Address City/[facility]/ZIP Co de Phone Number [facility] [address] [address] * BILIRUBIN, TOTAL (ONLY) (11/20/2023 1:20 PM CDT) Bili Total 0.5 <=1.2 mg/dL [facility] Blood 11/20/2023 1:20 PM CDT 11/20/2023 2:24 PM CDT Narrative [facility] - 11/20/2023 2:49 PM CDT Bill to Corporate Kidney Acquisition ??Account [facility] Performing Organization Address City/[facility]/ZIP Co de Phone Number [facility] [address] [address] * AST (SGOT) (11/20/2023 1:20 PM CDT) AST(SGOT) 15 5 - 40 IU/L [facility] Blood 11/20/2023 1:20 PM CDT 11/20/2023 2:24 PM CDT Narrative [facility] - 11/20/2023 2:49 PM CDT Bill to Corporate Kidney Acquisition ??Account [facility] [address] [address] * PTT (APTT) (11/20/2023 1:20 PM CDT) APTT 33.4 25.0 - 37.0 sec [facility] Blood 11/20/2023 1:20 PM CDT 11/20/2023 2:25 PM CDT Narrative [facility] - 11/20/2023 2:54 PM CDT Bill to Corporate Kidney Acquisition Account [facility] Performing Organization Address City/[facility]/ZIP Co de Phone Number [facility] [address] [address] * ALT (SGPT) (11/20/2023 1:20 PM CDT) ALT (SGPT) 9 <=41 IU/L [facility] Blood 11/20/2023 1:20 PM CDT 11/20/2023 2:24 PM CDT Narrative [facility] - 11/20/2023 2:49 PM CDT Bill to Corporate Kidney Acquisition ??Account [facility] Performing Organization Address City/[facility]/ZIP Co de Phone Number [facility] [address] [address] * ALKALINE PHOSPHATASE (11/20/2023 1:20 PM CDT) Alk Phos 118 40 - 129 IU/L [facility] Comment:No reference range e stablished for patients <18 years old. Blood 11/20/2023 1:20 PM CDT 11/20/2023 2:24 PM CDT Narrative [facility] - 11/20/2023 2:49 PM CDT Bill to Corporate Kidney Acquisition ??Account Neva Carbajal [facility] Performing Organization Address City/[facility]/ZIP Co de Phone Number [facility] [address] [address] * ALBUMIN (11/20/2023 1:20 PM CDT) Albumin 4.3 3.8 - 5.1 g/dL [facility] Blood 11/20/2023 1:20 PM CDT 11/20/2023 2:24 PM CDT Narrative [facility] - 11/20/2023 2:49 PM CDT Bill to Corporate Kidney Acquisition ??Account [facility] Performing Organization Address City/[facility] Co de Phone Number [facility] [address] [address] * BLOOD TYPING-ABO/RH (11/20/2023 1:20 PM CDT) ABORHG O POS [facility] Blood 11/20/2023 1:20 PM CDT 11/20/2023 2:29 PM CDT Narrative [facility] - 11/20/2023 3:06 PM CDT Bill to Corporate Kidney Acquisition ??Account Neva Carbajal [facility] [employer]SF[employer] Performing Organization Address [facility] Co de Phone Number [facility] [address] [address] * XR CHEST 2 VIEWS PA + [...] in the pelvis, likely physiologic. Reading Radiologist: hSilo Cronin Narrative 11/20/2023 2:[address] [...] Blayne Quiroz MD RAD CT BODY * [facility] EXERCISE STRESS ECHO COMPLETE WITH CONTRAST [...] ? 67.01 Inches MACO Patient Number ?? [id number] ?Weight ? 205 Pounds Date of ?1980 ? BSA ?2.04 m^2 Age ?43 ? Tape Number: Gender ? Male ? Study Date ? 11/20/2023 10:51 AM Engineer Internship ?MA ? Ordering Provider ??CORBY CARUSO Referring ? Interpreting ? Hue Flynn MD Physician ? Physician ?[id number] Type of Study: Stress procedure: ECH EXERCISE [...] HR: 176 bpm ? HR BP Product: 64046 % of predicted HR: 62 ? Max [...] VINAY Height 67.01 Inches MACO Patient Number [id number] Weight 205 Pounds Date of 1980 BSA 2.04 m^2 Age 43 Tape Number: Gender Male Study Date 11/20/2023 10:51 AM Engineer Internship [place] Ordering Provider CORBY CARUSO Referring Interpreting Hue Flynn MD Physician Physician [id number] Type of Study: Stress procedure: ECH EXERCISE STRESS ECHO, Color Doppler, Spectral Doppler HR: 84 bpmBP: 184/80 mmHg Patient Status: RoutineTechnical Quality: Adequate visualization Study Location: Echo LabEffective Measure Medium: DefinBotanical Tans. Amount- 0.77 ml Indications Indications for Study: [...] Predicted HR: 176 bpm HR BP Product: 48199 % of predicted HR: 62 Max Exercise: [...] RAD ECHO [facility] * EKG ADULT (12-LEAD) (11/20/2023 10:46 AM CDT) 11/20/2023 10:4 6 AM CDT Impressions [facility] EKG ORDERS - 11/20/2023 10:46 AM CDT SINUS RHYTHM NORMAL ECG No previous ECG available for comparison. P-R Interval 174 ms QRS Interval 93 ms QT Interval 367 ms QTC Interval 409 ms P [place] 46 QRS [place] 61 T Wave [place] 68 Narrative Procedure Note Jean Liu MD - 11/20/2023 IMPRESSION SINUS RHYTHM NORMAL ECG No previous ECG available for comparison. P-R Interval 174 ms QRS Interval 93 ms QT Interval 367 ms QTC Interval 409 ms P [place] 46 QRS [place] 61 T Wave [place] 68 Blayne Quiroz MD EKG [facility] EKG ORDERS from Last 3 Months CORPORATE,KIDNEY ACQUISITION COST-CURRENT NEW Corporate Other 05/26/2020 Attn Williams Lindquist [facility] [address] [place] [address]
--- OUTSIDE RECORDS SUMMARY | 2023-12-13 13:26 | XMS_ITS | Encounter Summary ---
Author Organization [facility] Address [address] [facility] [place] [address] Phone Care Team Providers Care [employer] Salesperson Name Role Phone Unavailable Primary Care Provider Unavailabl e Reason for Visit * Prior Authorization (Routine) - Closed Specialty Diagnoses / Procedures Referred By Contac t Referred To Contact CARDIOLOGY ECHO LAB Diagnoses Encounter for other preprocedural examination [facility] Echo and EKG. Diagnoses Pre-Transplant Evaluation For Esrd (End Stage Renal Disease) [Z01.818] Procedures [place] ECHO TTHRC R-T 2D W/WO M-MODE REST&STRS CONT ECG [place] ECG ROUTINE ECG W/LEAST 12 LDS W/I&R W[place] ECG ROUTINE ECG W/LEAST 12 LDS TRCG ONLY W/O I&R Echo Lab [address] [facility] [address] [place] [address] Referral ID Status Reason Start Date Expiration Date Visits Re quested Visits Authorized [id number] Closed 2 2 Encounter Details Date Type Department Care Team (Latest Contact Info) Description 11/20/2023 9:57 AM CDT - 11/20/2023 11:59 PM CDT [facility] [address] [facility] [address] [place], [place] [address] Blayne Quiroz MD [address] [facility] [address] [place] [address] Patient Registration Representative, Ekg [address] [place] [address] Discharge Disposition: Discharged to home or self [...] Specialty Center Cardiology Clinic [address] [place] [address] Denae Mckeon MD [address] [place], [place] [address] Scheduled Discharge Disposition: Discharged to home or self care 01/01/2024 2:00 PM PATIENT FINANCIAL COORDINATOR Office Visit Transplant Program [address] [place] [address] Ning Leiva MD [address] [address] Scheduled Discharge Disposition: Discharged to home or self care documented as of this encounter Procedures Procedure Name Priority Date/Time Associated Diagnosis Comments EKG ADULT (12-LEAD) Routine 11/20/2023 1 0:46 AM CDT Pre-transplant evaluation for ESRD (end stage renal disease) documented in this encounter Results * EKG ADULT (12-LEAD) (11/20/2023 10:46 AM CDT) 11/20/2023 10:4 6 AM CDT Impressions [facility] E[place] ORDERS - 11/20/2023 10:46 AM CDT SINUS RHYTHM NORMAL ECG No previous ECG available for comparison. P-R Interval 174 ms QRS Interval 93 ms QT Interval 367 ms QTC Interval 409 ms P [place] 46 QRS [place] 61 T Wave [place] 68 Narrative Procedure Note Jean Liu MD - 11/20/2023 IMPRESSION SINUS RHYTHM NORMAL ECG No previous ECG available for comparison. P-R Interval 174 ms QRS Interval 93 ms QT Interval 367 ms QTC Interval 409 ms P [place] 46 QRS [place] 61 T Wave [place] 68 Blayne Quiroz MD EKG [facility] EKG ORDERS documented in this encounter Visit Diagnoses Diagnosis Pre-transplant evaluation for ESRD (end stage renal disease) Other specified pre-operative examination documented in this encounter
--- OUTSIDE RECORDS SUMMARY | 2023-12-13 13:26 | XMS_ITS | Encounter Summary ---
Author Organization [facility] [place] Address [address] [facility] [place] [address] Phone Care Team Providers Care Blasting Entryman Name Role Phone Unavailable Primary Care Provider Unavailabl e Reason for Visit * Reason Comments Pre Kidney Transplant Evaluation Encounter Details Date Type Department Care Team (Late st Contact Info) Description 11/20/2023 2:30 PM CDT Nurse Only Transplant Program [address] [facility] [address] [place], [place] [id number] Neva Carbajal MBBS [address] [facility] [address] [place], [place] [id number] RnCali-Pre Recipient Chronic kidney disease (Primary Dx) [...] and have labs drawn. Also meeting with salt operator. Discussed when labs results would be returned. Chinyere Valencia RN, 11/20/2023 2:25 PM documented in this encounter Miscellaneous Notes * Transplant Care Plan - Chinyere Valencia RN - 11/20/2023 2:30 PM CDT Transplant-Recipient Plan Transplant-Pre Care Plan Maco Stein Recipient Care Plan Pretransplant I) Referral received by financial internship from Nephrologists, dialysis unit or patient. II) Patient scheduled to attend information session. III) Patient attends information session which includes Fnps, Transplant Webbing Seamer Pound Net, Honing Machine Operator Tool, Living Donor Coordinator, Transplant Surgeon, Mine Engineering Superintendent, and Parking Worker Discussed the following with potential transplant candidate and their family members: IV) A) Advantages and disadvantages of transplant V) B) Possible complications post transplant ) C)Medications and their side effects VII) D) Hospitalization and frequency of clinic visits post-op VIII) E) Requirement that all out-of-town patients remain in [facility] for at least 2 weeks post-op, typically [...] waitlisted, patient's name is placed on the [facility] kidney donor waitlist. Patient notification letter sent and if patient is predialysis arrangements are made for ALA levels to be drawn 2. Patient's Parking Worker notified 3. Patient's dialysis unit notified and [...] 2. Patient notification letter sent. 3. Patient???s Parking Worker notified 4. Patient???s dialysis unit notified Transplant-Recipient Plan Transplant-Pre Care Plan Maco [place] WAITLIST MANAGEMENT I) Monthly Updates a. Brief summary of patient's transplant status sent out by the Transplant Clinic monthly to the dialysis unit or if predialysis to the Parking Worker. II) Semiannual Check Calls Patient contacted by phone by transplant steam press tender to verify current: contact information, insurance, health [...] [facility] [address] [address] Denae Mckeon MD [address] [place], [place] [address] Scheduled Discharge Disposition: Discharged to home or self care 01/01/2024 2:00 PM AIRCRAFT INSTRUMENT ENGINEER Office Visit Transplant Program [address] [place], [place] [address] Ning Leiva MD [address] [facility] [address] [place] [address] Scheduled Discharge Disposition: Discharged to home or [...] Donor, [place]agas Screen Non Reactive Non Reactive [employer] Blood 11/20/2023 1:20 PM CDT 11/23/2023 11:23 AM CDT [facility] [employer] [address] [place] [address] * COCCIDIOIDES AB SCREEN WITH REFLEX (11/20/2023 1:20 PM CDT) Coccidioides Antibody Negative Negative [facility] Comment: Repeat testing on a new sample in 2-3 weeks if clinically indicated. ADDITIONAL INFORMATION This test has been modified from the cook boat's instructions. Its performance characteristics were determined by [facility] in a manner consistent with CLIA requirements. This test has not been cleared or approved by the U.S. Food and Drug Administration. Test Performed by: [facility] - [address] [address] Senior Data Warehouse Architect: Sawyer Alejandre Ph.D.; CLIA# [id number] Serum 11/20/2023 1:20 PM CDT 11/20/2023 2:24 PM CDT Narrative [facility] - 11/21/2023 8:16 PM CDT Bill to Corporate Kidney Acquisition Account Neva Carbajal [facility] [address] [place] [address] * (ABNORMAL) QUANTIFERON-TB GOLD PLUS (11/20/2023 1:20 PM CDT) QuantiFERON TB Gold Plus Positive( A) Negative [facility] QFT TB 1 0.19 [facility] QFT TB 2 0.35 [facility] QFT TB MITOGEN 9.94 [facility] QFT NIL 0.06 [facility] Blood 11/20/2023 1:20 PM CDT 11/22/2023 7:34 AM CDT Narrative [facility] - 11/22/2023 10:36 AM CDT Bill to Corporate Kidney Acquisition ??Account [facility] [address] [address] * HEPATITIS B CORE TOTAL BHAKTI (11/20/2023 1:20 PM CDT) HBV Core Total Bhakti Nonreactive Nonreactive [facility] Blood 11/20/2023 1:20 PM CDT 11/20/2023 3:41 PM CDT Narrative [facility] - 11/20/2023 4:11 PM CDT Bill to Corporate Kidney Acquisition Account [facility] [address] [address] * MEASLES VIRUS (RUBEOLA) ANTIBODY, IGG (11/20/2023 1:20 PM CDT) Measles Ab, IgG Index 116.00 AU/ml [facility] Measles Ab, IgG Positive [facility] Comment:Positive results (>= 16.5) indicate current or past exposure to Measles virus or prior immunization. Blood 11/20/2023 1:20 PM CDT 11/20/2023 2:24 PM CDT Narrative [facility] - 11/21/2023 9:03 AM CDT Bill to Corporate Kidney Acquisition ??Account [facility] Performing Organization Address City/[facility]/ZIP Co de Phone Number [facility] [address] [address] * RPR SYPHILIS SCREEN (11/20/2023 1:20 PM CDT) RPR Screen Non-Reactive Non-Reacti ve [facility] RPR Titer Not Reflexed [facility] Blood 11/20/2023 1:20 PM CDT 11/21/2023 10:14 AM CDT Narrative [facility] - 11/21/2023 11:32 AM CDT Bill to Corporate Kidney Acquisition ??Account [facility] [address] [address] * (ABNORMAL) EBV VCA IGG (11/20/2023 1:20 PM CDT) EBV Ab VCA IGG >750.0(H) 0.0 - 21.9 U/mL [facility] Comment: INTERPRETIVE INFORMATION: Parveen-Monsalve Virus Antibody to ?Viral Capsid Antigen, IgG ??17.9 U/mL or less.......Not Detected ??18.0-21.9 U/mL..........Indeterminate - Repeat testing in ?10-14 days may be helpful. ??22.0 U/mL or greater....Detected Performed By: [facility] [address] [place] [address] Supervisor Assembly Room: Salinas Prajapati MD, PhD CLIA Number: [id number] PARVEEN-MONSALVE VIRUS ANTIBODY TO VIRAL CAPSID ANTIGEN IGG REFERENCE INTERVAL: EFFECTIVE 10/11/09 NEGATIVE: ??17.9 U/ML OR LESS EQUIVOCAL: 18.0 - 21.9 U/ML POSITIVE: ??22.0 U/ML OR GREATER Serum 11/20/2023 1:20 PM CDT 11/20/2023 2:24 PM CDT Narrative [facility] - 11/21/2023 7:21 PM CDT Bill to Corporate Kidney Acquisition ??Account [facility] [address] [place] [address], * VARICELLA-ZOSTER VIRUS (VZV) ANTIBODY, IGG (11/20/2023 1:20 PM CDT) Pathologist [facility] VZV Ab, IgG Positive [facility] Comment:Positive results ind icate current or past exposure to Varicella-Zoster virus or prior immunization. Blood 11/20/2023 1:20 PM CDT 11/20/2023 2:24 PM CDT Narrative [facility] - 11/21/2023 9:03 AM CDT Bill to Corporate Kidney Acquisition ??Account [facility]a [facility] [address] [address] * PHOSPHORUS (11/20/2023 1:20 PM CDT) Phosphorus 3.6 2.5 - 4.5 mg/dL [facility] Blood 11/20/2023 1:20 PM CDT 11/20/2023 2:24 PM CDT Narrative [facility] - 11/20/2023 2:49 PM CDT Bill to Corporate Kidney Acquisition ??Account [facility]a [facility] Performing Organization Address [facility]/ZIP Co de Phone Number [facility] [address] [address] * HIV COMBO (11/20/2023 1:20 PM CDT) HIV Antigen-Antibody Nonreactive Nonreactive [facility] Comment:Performance characte ristics have not been established with this test on patients less than 2 years of age. Blood 11/20/2023 1:20 PM CDT 11/20/2023 2:24 PM CDT Narrative [facility] - 11/20/2023 3:20 PM CDT Bill to Corporate Kidney Acquisition Account [facility]a [facility] Performing Organization Address City/[facility]/ZIP Co de Phone Number [facility] [address] [address] * HEPATITIS C ANTIBODY (11/20/2023 1:20 PM CDT) Hep C Bhakti Nonreactive Nonreactive [facility] Comment:Performance characte ristics have not been established with this test on patients less than 10 years of age. Blood 11/20/2023 1:20 PM CDT 11/20/2023 2:24 PM CDT Narrative [facility] - 11/20/2023 3:19 PM CDT Bill to Corporate Kidney Acquisition ??Account [facility] [address] [address] * HEPATITIS B SURFACE ANTIGEN (11/20/2023 1:20 PM CDT) HBV Surface Ag Nonreactive Nonreactive [facility] Comment: Testing performed at: [facility] [address] [address] Blood 11/20/2023 1:20 PM CDT 11/20/2023 2:24 PM CDT Narrative [facility] - 11/20/2023 3:19 PM CDT Bill to Corporate Kidney Acquisition ??Account [facility] Performing Organization Address [facility] Co de Phone Number [facility] [address] [address] * HEPATITIS B SURFACE ANTIBODY (11/20/2023 1:20 PM CDT) HBsAb Quant 83.42 mIU/ml [facility] Comment: The Hepatitis B Surface Antibody quantitation is greater than or equal to 12.00 mIU/mL. This patient has either had an antibody response to a hepatitis B vaccination, received a transfusion or has recovered from a hepatitis B infection. This patient should be considered immune to hepatitis B. HBsAb Interpretation Reactive [facility] Blood 11/20/2023 1:20 PM CDT 11/20/2023 2:24 PM CDT Narrative [facility] - 11/20/2023 3:19 PM CDT Bill to Corporate Kidney Acquisition ??Account [facility] Performing Organization Address City/[facility]/ZIP Co de Phone Number [facility] [address] [address] * PTT (APTT) (11/20/2023 1:20 PM CDT) APTT 33.4 25.0 - 37.0 sec [facility] Blood 11/20/2023 1:20 PM CDT 11/20/2023 2:25 PM CDT Narrative [facility] - 11/20/2023 2:54 PM CDT Bill to Corporate Kidney Acquisition Account [facility]a [facility] [address] [address] * PROTHROMBIN (PT) & INR (11/20/2023 1:20 PM CDT) PT 11.6 9.0 - 12.5 sec [facility] INR 1.0 0.8 - 1.1 [facility] Comment: Warfarin Therapeutic Range: Standard Intensity: 2.0 - 3.0 High Intensity: 2.5 - 3.5 Blood 11/20/2023 1:20 PM CDT 11/20/2023 2:25 PM CDT Narrative [facility] - 11/20/2023 2:54 PM CDT Bill to Corporate Kidney Acquisition Account [facility] Performing Organization Address [facility] Co de Phone Number [facility] [address] [address] * GGT (11/20/2023 1:20 PM CDT) GGT 13 10 - 71 IU/L [facility] Blood 11/20/2023 1:20 PM CDT 11/20/2023 2:24 PM CDT Narrative [facility] - 11/20/2023 2:49 PM CDT Bill to Corporate Kidney Acquisition ??Account [facility] Performing Organization Address City/[facility]/ZIP Co de Phone Number [facility] [address] [address] * (ABNORMAL) CBC WITH PLTS/AUTO DIFF (11/20/2023 1:20 PM CDT) WBC 4.75 4.00 - 10.00 k/cmm [facility] RBC 2.54(L) 4.60 - 6.00 m/cmm [facility] Hgb 8.4(L) 13.1 - 17.5 g/dL [facility] Hematocrit 24.7(L) 40.0 - 51.0 % [facility] MCV 97.2 80.0 - 100.0 fL [facility] MCH 33.1(H) 25.0 - 32.0 pg [facility] MCHC 34.0 31.0 - 36.0 g/dL [facility] RDW 14.5 11.5 - 14.5 % [facility] Plt 92(L) 150 - 400 k/cmm [facility] MPV 11.6 6.5 - 12.5 fL [facility] Automated Abs Neutrophil 3.10 1.70 - 6.50 k/cmm [facility] Comment:Preliminary ANC, Fin al Result to Follow Abs Immature Granulocyte 0.01 0.00 - 0.09 k/cmm [facility] Comment:The Immature Granulo cyte Absolute count contains metamyelocytes and myelocytes. Abs Neutrophil 3.10 1.70 - 6.50 k/cmm [facility] Abs Lymphocyte 1.09 0.80 - 4.00 k/cmm [facility] Abs Monocyte 0.41 0.20 - 1.00 k/cmm [facility] Abs Eosinophil 0.13 0.00 - 0.60 k/cmm [facility] Abs Basophil 0.01 0.00 - 0.20 k/cmm [facility] Blood 11/20/2023 1:20 PM CDT 11/20/2023 2:24 PM CDT Narrative [facility] - 11/20/2023 2:35 PM CDT Bill to Corporate Kidney Acquisition ??Account [facility] [address] [place] [address] * CALCIUM, TOTAL (11/20/2023 1:20 PM CDT) Calcium 8.6 8.6 - 10.0 mg/dL [facility] Blood 11/20/2023 1:20 PM CDT 11/20/2023 2:24 PM CDT Narrative [facility] - 11/20/2023 2:49 PM CDT Bill to Corporate Kidney Acquisition ??Account [facility] [address] [address] * BLOOD TYPING-ABO/RH (11/20/2023 1:20 PM CDT) ABORHG O POS [facility] Blood 11/20/2023 1:20 PM CDT 11/20/2023 2:29 PM CDT Narrative [facility] - 11/20/2023 3:06 PM CDT Bill to Corporate Kidney Acquisition ??Account [facility]a [facility] TRANSFUSION SER VICES Performing Organization Address [facility] Co de Phone Number [address] [address] * BILIRUBIN, TOTAL (ONLY) (11/20/2023 1:20 PM CDT) Bili Total 0.5 <=1.2 mg/dL [facility] Blood 11/20/2023 1:20 PM CDT 11/20/2023 2:24 PM CDT Narrative [facility] - 11/20/2023 2:49 PM CDT Bill to Corporate Kidney Acquisition ??Account [facility] Performing Organization Address City/[facility]/ZIP Co de Phone Number [address] [address] * AST (SGOT) (11/20/2023 1:20 PM CDT) AST(SGOT) 15 5 - 40 IU/L [facility] Blood 11/20/2023 1:20 PM CDT 11/20/2023 2:24 PM CDT Narrative [facility] - 11/20/2023 2:49 PM CDT Bill to Corporate Kidney Acquisition ??Account [facility] [address] [address] * ALT (SGPT) (11/20/2023 1:20 PM CDT) ALT (SGPT) 9 <=41 IU/L [facility] Blood 11/20/2023 1:20 PM CDT 11/20/2023 2:24 PM CDT Narrative [facility] - 11/20/2023 2:49 PM CDT Bill to Corporate Kidney Acquisition ??Account [facility] Performing Organization Address City/[facility]/ZIP Co de Phone Number [facility] [address] [address] * ALKALINE PHOSPHATASE (11/20/2023 1:20 PM CDT) Alk Phos 118 40 - 129 IU/L [facility] Comment:No reference range e stablished for patients <18 years old. Blood 11/20/2023 1:20 PM CDT 11/20/2023 2:24 PM CDT Narrative [facility] - 11/20/2023 2:49 PM CDT Bill to Corporate Kidney Acquisition ??Account [facility] [address] [address] * ALBUMIN (11/20/2023 1:20 PM CDT) Albumin 4.3 3.8 - 5.1 g/dL [facility] Blood 11/20/2023 1:20 PM CDT 11/20/2023 2:24 PM CDT Narrative [facility] - 11/20/2023 2:49 PM CDT Bill to Corporate Kidney Acquisition ??Account [facility] [address] [place] [id number] documented in this encounter Visit Diagnoses Diagnosis Chronic kidney disease- Primary Chronic kidney disease, unspecified documented in this encounter
--- OUTSIDE RECORDS SUMMARY | 2023-12-13 13:26 | XMS_ITS | Encounter Summary ---
Author Organization [facility] Address [address] [facility] [address] Phone Care Team Providers Care Pari Mutual Ticket Checker Name Role Phone Unavailable Primary Care [...] & PELVIS W/O CONTRAST MATERIAL Ct [facility] [address] [place] [address] Referral ID Status Reason Start Date Expiration Date Visits Re quested Visits Authorized [id number] Closed 1 1 Encounter Details Date Type Department Care Team (Latest Contact Info) Description 11/20/2023 12:08 PM CDT - 11/20/2023 11:59 PM CDT Hospital Encounter [facility] [address] [place], [place] [phone] Blayne Quiroz MD [address] [facility] [address] [place] [address] Discharge Disposition: Discharged to home or self [...] [facility] Cardiology Clinic [address] [address] Denae Mckeon MD [address] [facility] [address] [place], [place] [address] Scheduled Discharge Disposition: Discharged to home or self care 01/01/2024 2:00 PM JOB PRESS FEEDER Office Visit Transplant Program [address] [place] [address] [address] [place], [place] [address] Ning Leiva MD [address] [facility] [address] [place] [address] Scheduled Discharge Disposition: Discharged to home or [...]
--- OUTSIDE RECORDS SUMMARY | 2023-12-13 13:27 | XMS_ITS | Encounter Summary ---
Author Organization [facility] [place] Address [address] [place] [address] Care Team Providers Care Rn Tele Name Role Phone No, Pcp Primary Care Provider [phone] Encounter Details Date Type Department Care Team (Late st Contact Info) Description 11/03/2023 Orders Only [facility] [address] [place] [address] Julito Cortez MD [address] [place] [address] Social History Tobacco Use Types Packs/Day Years Used Date Smoking Tobacco: Never Assessed Sex and Gender Information Value Date Recorded Sex Assigned at Not on file Legal Sex Male 2:14 PM EDT Gender Identity Not on file Sexual Orientation [...] Results * [facility] Lab Results (11/03/2023) [facility] Simple KT/V (HHD and NXSTAGE) 0.65 [facility] SPKT/V DAUGIRDAS II (HHD & NXSTAGE) 0.81 [facility] WSTDKT/V 2.6 [facility] 11/03/2023 11/03/2023 [facility] Ordering Provider LAB BLOOD ORDERABLES Final Result Performing Organization Address [facility]/ZIP Co de Phone Number [facility] Contact Performing lab Unknown, [...] 11/06/2023 Unless otherwise specified, test(s) performed at: [facility], [address] [place] [address], [place] [address] EMS DIRECTOR: Gurdeep Ricardo M.D., Ph.D For any questions, please call customer service at FREQUENCY:MONTHLY Resulting Agency Comment Specimen source: Blood Julito Cortez MD LAB BLOOD ORDERABLES Final Resul t [facility] See order comments or contact performing lab Unknown, [place] * (ABNORMAL) HD KINETICS (11/03/2023) % Urea Reduction 48(L) 65 - 80 % [facility] 11/03/2023 11/06/2023 10: 47 AM CDT Narrative Resulting Agency Comment Specimen source: Plasma Julito Cortez MD LAB BLOOD ORDERABLES Final Resul t Performing Organization Address [facility] [address]/[facility] de Phone Number [facility] See order comments or contact performing lab Unknown, [place] * (ABNORMAL) POST CHEMISTRY (11/03/2023) BUN Post Dialysis 23(H) 6 - 19 mg/dL [facility] 11/03/2023 11/06/2023 10: 47 AM CDT Narrative [facility] - 11/06/2023 Unless otherwise specified, test(s) performed at: [facility], [address] [place] [address], [place] [address] EMS DIRECTOR: Gurdeep Ricardo M.D., Ph.D For any questions, please call customer service at FREQUENCY:MONTHLY Resulting Agency Comment Specimen source: Plasma Julito Cortez MD LAB BLOOD ORDERABLES Final Resul t Performing Organization Address [facility] [address]/[facility] de Phone Number [facility] [...] 11/03/2023 11/06/2023 10: 28 AM CDT Narrative [facility] - 11/06/2023 Unless otherwise specified, test(s) performed at: [facility], [address] [place] [address], [place] [address] EMS DIRECTOR: Gurdeep Ricardo M.D., Ph.D For any questions, please call customer service at FREQUENCY:MONTHLY Resulting Agency Comment Specimen source: Serum Result [facility] Julito Cortez MD LAB BLOOD ORDERABLES Final Resul t [facility] See order comments or contact performing lab Unknown, [place] * (ABNORMAL) [facility] Chemistry (11/03/2023) PTH 328(H) 16 - 80 pg/mL [facility] 11/03/2023 11/06/2023 10: 37 AM CDT Narrative [facility] - 11/06/2023 Unless otherwise specified, test(s) performed at: [facility], [address] [place] [address], [place] [address] EMS DIRECTOR: Gurdeep Ricardo M.D., Ph.D For any questions, please call customer service at FREQUENCY:MONTHLY Resulting Agency Comment Specimen source: Plasma us Julito Cortez MD LAB BLOOD ORDERABLES Final Resul t [facility] See order comments or contact performing lab Unknown, [place] documented in this encounter Visit Diagnoses Not on filedocumented in this encounter Care Teams Rn Tele Relationship Specialty Start Date End Date No, Pcp PCP - General Internal Medicine 09/10/23 documented as of this encounter
--- OUTSIDE RECORDS SUMMARY | 2023-12-13 13:27 | XMS_ITS | Encounter Summary ---
Author Organization [facility] [place] Address [address] [place] [address] Care Team Providers Care Speech Lang Path Name Role Phone No, Pcp Primary Care Provider [phone] Encounter Details Date Type Department Care Team (Late st Contact Info) Description 12/02/2023 Orders Only [facility] [address] [place] [address] Julito Cortez MD [address] [place] [address] Social History Tobacco Use Types [...] SPKT/V DAUGIRDAS II (HHD & NXSTAGE) 0.78 [facility] 12/02/2023 12/02/2023 [facility] Ordering Provider LAB BLOOD ORDERABLES Final Result [facility] Contact Performing lab Unknown, [place] * (ABNORMAL) HD KINETICS (12/02/2023) Pathologist [facility] % Urea Reduction 52(L) 65 - 80 % [facility] 12/02/2023 12/04/2023 10: 54 AM CDT Narrative [facility] - 12/04/2023 Unless otherwise specified, test(s) performed at: [facility], [address] [place] [address], [place] [address] LITHOGRAPHIC PLATE MAKER: Gurdeep Ricardo M.D., Ph.D For any questions, please call customer service at FREQUENCY:MONTHLY Resulting Agency Comment Specimen source: Plasma Julito Cortez MD LAB BLOOD ORDERABLES Final Resul t [facility] See order comments or contact performing lab Unknown, [place] * (ABNORMAL) [facility] (12/02/2023) Pathologist [facility] BUN 42(H) 6 - 19 mg/dL [facility] [...] 12/02/2023 12/04/2023 9:3 8 AM CDT Narrative [facility] - 12/05/2023 Unless otherwise specified, test(s) performed at: [facility], [address] [place] [address], [place] [address] LITHOGRAPHIC PLATE MAKER: Gurdeep Ricardo M.D., Ph.D For any questions, please call customer service at FREQUENCY:MONTHLY Resulting Agency Comment Specimen source: Serum Julito Cortez MD LAB BLOOD ORDERABLES Edited Resu lt - Final Performing Organization Address [facility] de Phone Number [facility] See order comments or contact performing lab Unknown, [place] * (ABNORMAL) [facility] (12/02/2023) PTH 357(H) 16 - 80 pg/mL [facility] 12/02/2023 12/04/2023 10: 16 AM CDT Narrative [facility] - 12/04/2023 Unless otherwise specified, test(s) performed at: [facility], [address] [place] [address], [place] [address] LITHOGRAPHIC PLATE MAKER: Gurdeep Ricardo M.D., Ph.D For any questions, please call customer service at FREQUENCY:MONTHLY Resulting Agency Comment Specimen source: Plasma Julito Cortez MD LAB BLOOD ORDERABLES Final Resul t Performing Organization Address [facility] de Phone Number [facility] See order comments or contact performing lab Unknown, [place] * (ABNORMAL) POST CHEMISTRY (12/02/2023) BUN Post Dialysis 20(H) 6 - 19 mg/dL [facility] 12/02/2023 12/04/2023 10: 54 AM CDT Narrative [facility] - 12/04/2023 Unless otherwise specified, test(s) performed at: [facility], [address] [place] [address], [place] [address] LITHOGRAPHIC PLATE MAKER: Gurdeep Ricardo M.D., Ph.D For any questions, please call customer service at FREQUENCY:MONTHLY Resulting Agency Comment Specimen source: Plasma Julito Cortez MD LAB BLOOD ORDERABLES Final Resul t [facility] See order comments or contact performing [...] 12/02/2023 12/04/2023 10: 16 AM CDT Narrative [facility] - 12/04/2023 Unless otherwise specified, test(s) performed at: [facility], [address] [place] [address] LITHOGRAPHIC PLATE MAKER: Gurdeep Ricardo M.D., Ph.D For any questions, please call customer service at FREQUENCY:MONTHLY Resulting Agency Comment Specimen source: Blood us Julito Cortez MD LAB BLOOD ORDERABLES Final Resul t [facility] See order comments or contact performing lab Unknown, [place] documented in this encounter Visit Diagnoses Not on filedocumented in this encounter Care Teams Speech Lang Path Relationship Specialty Start Date End Date No, Pcp PCP - General Internal Medicine 09/10/23 documented as of this encounter
--- OUTSIDE RECORDS SUMMARY | 2023-12-13 13:27 | XMS_ITS | Encounter Summary ---
Author Organization [facility] Address [address] [place] [address] Phone Care Team Providers Care Carton Folder Name Role Phone Unavailable Primary Care Provider Unavailabl e Encounter Details Date Type Department Care Team (Late st Contact Info) Description 09/26/2023 Abstract Transplant Program [address] [place] [address] [facility] [place] [address] Williams Lindquist, Transplant Coal Pulverizing Operator [address] [place] [address] [id number] Social History Tobacco Use Types Packs/Day Years [...] [facility]ty [facility] Cardiology Clinic [address] [address] Denae Mckeon MD [address] [facility] [address] [place] [address] Scheduled Discharge Disposition: Discharged to home or self care 01/01/2024 2:00 PM VISCERA WASHER Office Visit Transplant Program 1 [facility] [address] [place] [address] Ning Leiva MD [address] [facility] [address] [place] [address] Scheduled Discharge Disposition: Discharged to home or self care documented as of this encounter Visit Diagnoses Not on filedocumented in this encounter
--- OUTSIDE RECORDS SUMMARY | 2023-12-13 13:27 | XMS_ITS | Clinical Summary ---
Author Organization [facility] Address [place], [place] [address] Care Team Providers Care Lube Man Name Role Phone Daysi Pires Primary Care [...] times daily. 60 Tablet 4 Active sensor ([employer]yle Gale 3 Sensor) for continuous blood glucose [...] 12/10/19 24 azithromycin (Zithromax Z-Waldo) 250 mg tabletIndications:Yamelu michelle acquired pneumonia of right lower lobe of [...] Encounters Date Type Department Care Team Description 12/12/2023 Telephone [facility] [address] [place] [address] Mina Carnes DPM Appointment 12/10/2023 Telephone [facility] [address] [place] [address] Daysi Pires PA antibiotic not working (antibiotic finished) 12/10/2023 Telephone [facility] [address] [place] [address] Daysi Pires PA 12/07/2023 Telephone [facility] [address] [place] [address] Daysi Pires PA RETURNING CALL 12/03/2023 Telephone [facility] [address] [place] [address] Daysi Pires PA Follow Up 11/30/2023 3:30 PM CDT Ancillary Procedure [facility] [address] [place] [address] 11/30/2023 2:40 PM CDT Office Visit [facility] [address] [facility] [place] [address] Daysi Pires PA Follow Up (Coughing, SOB, chills started Sunday) 11/30/2023 Travel 11/14/2023 Orders Only [facility] Scanner 1 scan: (1-Ord) [place], WOUND DEBRIDEMENT LEFT TOE, 11/14/2023 11/07/2023 Orders Only [facility] Scanner 1 scan: (1-Ord) [place], WOUND DEBRIDEMENT LEFT TOE, 11/07/2023 10/31/2023 11:35 AM CDT Office Visit [facility] [address] [facility] [address] Ning Lopez PA Hospital F/U (Slowly feeling better ) 10/31/2023 Travel 10/26/2023 Patient Outreach [facility] [address] [facility] [address] Laura Reyes RN Primary RN Care Management (Lace 56); Hospital F/U 10/23/2023 5:44 PM CDT - 10/25/2023 5:30 AM CDT Hospital Encounter [facility] [address] [place] [address] Aiden Babin MD [facility], [facility] Eyad Wallace MD [place], TAMMIE Lyles Lower extremity edema (Primary Dx); ESRD (end stage renal disease) (HC); HTN (hypertension) Discharge Disposition: Home Self Care 10/23/2023 Travel 10/19/2023 Nurse Triage [facility] [address] [place] [address] Daysi Pires PA Chest Pain from Last [...] Team (Late st Contact Info) Description 12/18/2023 2:15 PM CDT Office Visit [facility] [address] [place] [address] Mina Carnes DPM [address] [place] [address] Health Maintenance Due Date Last Done Comments Tdap 10/14/1990 Depression screening for age 12+ 1991 HIV for age 15-65 10/14/1994 BMI (ht and wt on same day) for age 18+ 10/14/1997 Hepatitis C screening for ag e 18-79 10/14/1997 Tetanus booster 1999 COVID-19 vaccine series (2023- season) 2023 Influenza for age 9-49 10/28/2023 [...] soft tissues: ??No significant findings. Procedure Note eJan Manzo MD - 12/02/2023 For Patients: As [...] - 100 mg/dL 10/25/2023 12:33 PM CDT [facility] Blood BLOOD SPECIMEN / Unknown 10/25/2023 12:32 PM CDT 10/25/2023 12:33 PM CDT Sean CHO CHEMISTRY [facility] [address] [place] [address], * ECHO TTE COMPLETE WO CONTRAST (10/24/2023 11:01 AM CDT) AORTIC VALVE MEAN PG 4 mmHg LVEDD 5.2 cm EJECTION FRACTION 55 - 60% Anatomical Region Laterality Modality Ultrasound 10/24/2023 9:54 AM CDT Narrative 10/24/2023 11:09 AM CDT ECHOCARDIOGRAM MACO KAURMARILIAKRISS ? Accession#: ?? [id number] : ?1980 43 years Study Date: ?? 10/24/2023 9:54:07 AM Gender: M ?BP: ? 180/83 mmHg Height: 175.00 cm ?BSA: ?2.10 m? ? ? Weight: 95.00 kg ? Tech: ? CJG ? Referring MD: EYAD WALLACE Site: ? [facility] [place] Location: ANW IP Patient [...] detected. Comparison Compared to prior exam of CIRCUIT TESTER, there has been no significant change. Chamber [...] . This study was interpreted by an [facility] accredited facility. ??Final ?? Procedure Note Alex Weaver MD - 10/24/2023 ECHOCARDIOGRAM MACO STEIN : 1980 43 years Study Date: 10/24/2023 9:54:07 AM Gender: M BP: 180/83 mmHg Height: 175.00 cm BSA: 2.10 m? ? ? Weight: 95.00 kg Tech: [facility] Referring MD: EYAD WALLACE Site: [facility] [place] Location: [facility] Patient Location: Inpatient. Procedure: 2D w/ [...] detected. Comparison Compared to prior exam of CIRCUIT TESTER, there has been no significant change. Chamber [...] HBSAG Nonreactive Nonreactive 10/24/2023 10:42 AM CDT [facility] Blood BLOOD SPECIMEN / Unknown Venipuncture / Unknown 10/24/2023 7:01 AM CDT 10/24/2023 8:32 AM CDT Rabia Husain MD SEND OUT S Performing Organization Address City/[facility]/ZIP Co de Phone Number [facility] [address] * (ABNORMAL) Electrolyte panel AM (10/24/2023 7:01 AM CDT) SODIUM 134(L) 136 - 145 mmol/L 10/24/2023 8:56 AM CDT [facility] POTASSIUM 4.1 3.5 - 5.1 mmol/L 10/24/2023 8:56 AM CDT [facility] CHLORIDE 94(L) 98 - 107 mmol/L 10/24/2023 8:56 AM CDT [facility] CO2,TOTAL 28 22 - 29 mmol/L 10/24/2023 8:56 AM CDT [facility] ANION GAP 12 5 - 18 10/24/2023 8:56 AM CDT [facility] Blood BLOOD SPECIMEN / Unknown Venipuncture / Unknown 10/24/2023 7:01 AM CDT 10/24/2023 8:32 AM CDT Eyad Wallace MD CHEMISTRY [facility] [address] [place] [address], [place] * [place] VENOUS LOWER EXTREMITY BILATERAL [...] 9:38:09 PM (Electronically Signed) Eyad Wallace MD * (ABNORMAL) TROPONIN T (HS) ONE TIME (10/23/2023 6:57 PM CDT) TROPONIN T HS 44(H) 6-15 ng/L ng/L 10/23/2023 7:35 PM CDT [facility] Blood BLOOD SPECIMEN / Unknown Butterfly / Unknown 10/23/2023 6:57 PM CDT 10/23/2023 7:09 PM CDT Narrative [facility] - 10/23/2023 7:35 PM CDT [id number] [...] department patient population. Aiden Babin MD [facility] [address] [place] [address], [place] * (ABNORMAL) CBC W PLT NO DIFF (10/23/2023 6:57 PM CDT) WHITE BLOOD COUNT 6.3 4.5 - 11.0 thou/cu mm 10/23/2023 7:15 PM CDT [facility] RED BLOOD COUNT 2.63(L) 4.30 - 5.90 mil/cu mm 10/23/2023 7:15 PM CDT [facility] HEMOGLOBIN 8.7(L) 13.5 - 17.5 g/dL 10/23/2023 7:15 PM CDT [facility] HEMATOCRIT 25.0(L) 37.0 - 53.0 % 10/23/2023 7:15 PM CDT [facility] MCV 95 80 - 100 fL 10/23/2023 7:15 PM CDT [facility] MCH 33.1 26.0 - 34.0 pg 10/23/2023 7:15 PM CDT [facility] MCHC 34.8 32.0 - 36.0 g/dL 10/23/2023 7:15 PM CDT [facility] RDW 13.2 11.5 - 15.5 % 10/23/2023 7:15 PM CDT [facility] PLATELET COUNT 100(L) 140 - 440 thou/cu mm 10/23/2023 7:15 PM CDT [facility] MPV 12.0(H) 6.5 - 11.0 fL 10/23/2023 7:15 PM CDT [facility] NRBC 0.0 % 10/23/2023 7:15 PM CDT [facility] ABS NRBC 0.0 thou /cu mm 10/23/2023 7:15 PM CDT [facility] Blood BLOOD SPECIMEN / Unknown Butterfly / Unknown 10/23/2023 6:57 PM CDT 10/23/2023 7:09 PM CDT Aiden Babin MD HEMATOLOGY [facility] [address] [place] [address], * (ABNORMAL) HEPATIC FUNCTION PANEL (10/23/2023 6:57 PM CDT) ALBUMIN 3.7(L) 4.0 - 4.9 g/dL 10/23/2023 7:35 PM CDT [facility] PROTEIN,TOTAL 6.9 6.0 - 8.0 g/dL 10/23/2023 7:35 PM CDT [facility] BILIRUBIN,TOTAL 0.5 0.0 - 1.2 mg/dL 10/23/2023 7:35 PM CDT [facility] BILIRUBIN,DIRECT 0.2 0.0 - 0.2 mg/dL 10/23/2023 7:35 PM CDT [facility] BILIRUBIN,INDIRE CT 0.3 0.2 - 0.8 mg/dL 10/23/2023 7:35 PM CDT [facility] ALK PHOSPHATASE 74 40 - 129 IU/L 10/23/2023 7:35 PM CDT [facility] ALT (SGPT) 7(L) 10 - 50 IU/L 10/23/2023 7:35 PM CDT [facility] AST (SGOT) 17 10 - 50 IU/L 10/23/2023 7:35 PM CDT [facility] Blood BLOOD SPECIMEN / Unknown Butterfly / Unknown 10/23/2023 6:57 PM CDT 10/23/2023 7:09 PM CDT Aiden Babin MD CHEMISTRY [facility] [address] [place] [address], [place] * (ABNORMAL) BASIC METABOLIC PANEL (10/23/2023 6:57 PM CDT) SODIUM 131(L) 136 - 145 mmol/L 10/23/2023 7:35 PM CDT [facility] POTASSIUM 4.1 3.5 - 5.1 mmol/L 10/23/2023 7:35 PM T [facility] CHLORIDE 90(L) 98 - 107 mmol/L 10/23/2023 7:35 PM T [facility] CO2,TOTAL 29 22 - 29 mmol/L 10/23/2023 7:35 PM T [facility] ANION GAP 12 5 - 18 10/23/2023 7:35 PM CDT [facility] GLUCOSE 366(H) 70 - 99 mg/dL 10/23/2023 7:35 PM T [facility] CALCIUM 8.7 8.6 - 10.0 mg/dL 10/23/2023 7:35 PM T [facility] BUN 29(H) 6 - 20 mg/dL 10/23/2023 7:35 PM T [facility] CREATININE 6.62(H) 0.70 - 1.20 mg/dL 10/23/2023 7:35 PM T [facility] BUN/CREAT RATIO 4(L) 10 - 20 7:35 PM T [facility] eGFR 10(L) >90 mL/min/1.7 3m2 10/23/2023 7:35 PM T [facility] Comment:As of 2021, eG FR [...] 7:09 PM CDT Aiden Babin MD CHEMISTRY [facility] [address] [place] [address], [place] * EKG 12 LEAD (10/23/2023 5:34 PM CDT) Interpretation Normal sinus rhythm Normal ECG Compared to ekg of 3 No Change BEYOND NOW Ventricular Rate 93 BPM BEYOND NOW Atrial Rate 93 BPM BEYOND NOW P-R Interval 170 ms BEYOND NOW QRS Duration 80 ms BEYOND NOW QT 362 ms BEYOND NOW QTc 450 ms BEYOND NOW P [place] 29 degrees BEYOND NOW R [place] 56 degrees BEYOND NOW T [place] 68 degrees BEYOND NOW 10/23/2023 5:34 PM CDT 10/23/2023 11:22 PM CDT Aiden Babin MD EKG ORD BEYOND NOW [place], [place] * (ABNORMAL) LIPID PANEL (12/06/2021 3:00 PM CDT) Pathologist [facility] CHOLESTEROL,TOTAL 163 100 - 199 mg/dL 12/07/2021 3:15 PM CDT [facility] TRIGLYCERIDES 272(H) <150 mg/dL 12/07/2021 3:15 PM CDT [facility] HDL CHOLESTEROL 23(L) >40 mg/dL 3:15 PM CDT [facility] NON-HDL CHOLESTEROL 140 <145 mg/dl 12/07/2021 3:15 PM CDT [facility] CHOL/HDL RATIO 7.09(H) <4.50 12/07/2021 3:15 PM CDT [facility] LDL CHOLESTEROL 86 <=130 mg/dL 12/07/2021 3:15 PM CDT [facility] VLDL CHOLESTEROL 54(H) <=30 mg/dL 12/07/2021 3:15 PM CDT [facility] PROVIDER ORDERED STATUS RANDOM 12/07/2021 3:15 PM CDT [facility] Blood BLOOD SPECIMEN / Unknown 12/06/2021 3:00 PM CDT 12/07/2021 2:54 PM CDT Aidee Sher CIRCUIT TESTER CHEMISTRY [facility] [address] [place] [address] from Last 3 Months or Most Recently Relevant to Health Maintenance Advance Directives Documents on File Type Date Recorded Patient Orthopedics Nurse Expl anation Healthcare Directive 09/26/2022 023 * Full Code (Latest Code Status on File) Date Activated Date Inactivated Comments 10/23/2023 8:52 PM 10/26/2023 1:29 AM Question Answer Comments Code Status Discussion: Reviewed Preferences * Full Code Date Activated Date Inactivated Comments 09/15/2022 5:47 PM 09/27/2022 6:10 PM Question Answer Comments Code Status Discussion: Reviewed Preferences Care Teams Lube Man Relationship Specialty Start Date End Date Daysi Pires PA [address] [place] [address] PCP - General Physician Commutator Presser 06/04/23
--- OUTSIDE RECORDS SUMMARY | 2023-12-13 13:27 | XMS_ITS | Encounter Summary ---
Author Organization [facility] [place] Address [address] [place] [address] Care Team Providers Care Statistical Engineer Name Role Phone No, Pcp Primary Care Provider [phone] Encounter Details Date Type Department Care Team (Late st Contact Info) Description 09/27/2023 Orders Only [facility] [address] [place] [address] Julito Cortez MD [address] [place] [address] Social History Tobacco Use Types [...] SPKT/V DAUGIRDAS II (HHD & NXSTAGE) 0.93 [facility] 09/27/2023 09/27/2023 [facility] Ordering Provider LAB BLOOD ORDERABLES Final Result [facility] Contact Performing [...] 09/28/2023 Unless otherwise specified, test(s) performed at: [facility], [address] [place] [address], [place] [address] PREMIX CONCRETE BATCHER: Gurdeep Ricardo M.D., Ph.D For any questions, [...] ORDERABLES Final Resul t Performing Organization Address [facility] Co de Phone Number [facility] See order comments or contact performing lab Unknown, [place] * (ABNORMAL) POST CHEMISTRY (09/27/2023) BUN Post Dialysis 23(H) 6 - 19 mg/dL [facility] 09/27/2023 09/28/2023 3:1 1 AM CDT Narrative [facility] - 09/28/2023 Unless otherwise specified, test(s) performed at: [facility], [address] [place] [address], [place] [address] PREMIX CONCRETE BATCHER: Gurdeep Ricardo M.D., Ph.D For any questions, please call customer service at FREQUENCY:MONTHLY Resulting Agency Comment Specimen source: Plasma Julito Cortez MD LAB BLOOD ORDERABLES Final Resul t Performing Organization Address [facility] de Phone Number [facility] [...] 09/27/2023 09/28/2023 2:5 6 AM CDT Narrative [facility] 09/28/2023 Unless otherwise specified, test(s) performed at: [facility], [address] [place] [address], [place] [address] PREMIX CONCRETE BATCHER: Gurdeep Ricardo M.D., Ph.D For any questions, please call customer service at FREQUENCY:MONTHLY Resulting Agency Comment Specimen source: Serum Julito Cortez MD LAB BLOOD ORDERABLES Final Resul t Performing Organization Address [facility] de Phone Number [facility] See order comments or contact performing lab Unknown, [place] * (ABNORMAL) Spectra Chemistry (09/27/2023) PTH 291(H) 16 - 80 pg/mL [facility] 09/27/2023 09/28/2023 3:0 3 AM CDT Narrative [facility] - 09/28/2023 Unless otherwise specified, test(s) performed at: [facility], [address] [place] [address], [place] [address] PREMIX CONCRETE BATCHER: Gurdeep Ricardo M.D., Ph.D For any questions, please call customer service at FREQUENCY:MONTHLY Resulting Agency Comment Specimen source: Plasma us Julito Cortez MD LAB BLOOD ORDERABLES Final Resul t Performing Organization Address [facility] de Phone Number [facility] See order comments or contact performing lab Unknown, [place] documented in this encounter Visit Diagnoses Not on filedocumented in this encounter Care Teams Statistical Engineer Relationship Specialty Start Date End Date No, Pcp PCP - General Internal Medicine 09/10/23 documented as of this encounter
--- OUTSIDE RECORDS SUMMARY | 2023-12-13 13:27 | XMS_ITS | Encounter Summary ---
Author Organization [facility] [place] Address [address] [facility] [facility] [address] [place] [address] Care Team Providers Care Financial Services Internship Name Role Phone No, Pcp Primary Care Provider [phone] Encounter Details Date Type Department Care Team (Late st Contact Info) Description 09/10/2023 Orders Only [facility] [place] [address] [place] [address] Julito Cortez MD [address] [place] [address] Social History Tobacco Use Types [...] (09/10/2023) Potassium 6.0(H) 3.5 - 5.1 mEq/L [facility] 09/10/2023 09/11/2023 3:3 0 AM CDT Narrative [facility] - 09/11/2023 Unless otherwise specified, test(s) performed at: [facility], [address] [place] [address], [place] [address] WORK CAR OPERATOR: Gurdeep Ricardo M.D., Ph.D For any questions, please call customer service at FREQUENCY:OTHER Resulting Agency Comment Specimen source: Serum us Julito Cortez MD LAB BLOOD ORDERABLES Final Resul t [facility] See order comments or contact performing lab Unknown, [place] documented in this encounter Visit Diagnoses Not on filedocumented in this encounter Care Teams Financial Services Internship Relationship Specialty Start Date End Date No, Pcp PCP - General Internal Medicine 09/10/23 documented as of this encounter
--- OUTSIDE RECORDS SUMMARY | 2023-12-13 13:27 | XMS_ITS | Encounter Summary ---
Author Organization [facility] Address [address] [address] Phone Care Team Providers Care Melt Supervisor Name Role Phone Unavailable Primary Care Provider Unavailabl e Encounter Details Date Type Department Care Team (Late st Contact Info) Description 10/03/2023 Documentation Only Transplant Program [address] [place], [place] [address] Williams Lindquist Transplant Staff Developer [address] [place], [place] [address] Social History Tobacco Use Types Packs/Day Years Used Date Smoking Tobacco: Never Assessed Sex and Gender Information Value Date Recorded Sex Assigned at Not on file Gender Identity Not on file Sexual Orientation Not on file documented as of this encounter Progress Notes * Williams Lindquist Transplant Staff Developer - 10/03/2023 9:12 AM CDT D/A: Received message from patient's daughter stating his Emergency Medical Assistance insurance isin place again. This was verified by [facility] website. Patient contacted and informed someone will becontacting him to reschedule the appointments that had to be canceled in August. Also talked with himabout applying for Uncompensated Care and patient requested an email be sent to him with the numberto call. Brenna Lindquist Transplant Staff Developer, Tuesday October 03, 2023 09:16 documented in this encounter Plan of Treatment Upcoming Encounters Date Type Department Care Team (Late st Contact Info) Description 12/18/2023 11:00 AM CDT Office Visit [facility] Cardiology Clinic [address] [address] Denae Mckeon MD [address] [place] [address] Scheduled Discharge Disposition: Discharged to home or self care 01/01/2024 2:00 PM SKATESMAN Office Visit Transplant Program [address] [place] [address] Ning Leiva MD [address] [place] [address] Scheduled Discharge Disposition: Discharged to home or self care documented as of this encounter Visit Diagnoses Not on filedocumented in this encounter
--- OUTSIDE RECORDS SUMMARY | 2023-12-13 13:27 | XMS_ITS | Encounter Summary ---
Author Organization [facility] Address 1 [place] [address] Phone Care Team Providers Care Yoker Machine Operator Name Role Phone Unavailable Primary Care Provider Unavailabl e Reason for Visit * Prior Authorization (Routine) - Closed Specialty Diagnoses / Procedures Referred By Contac t Referred To Contact CARDIOLOGY ECHO LAB Diagnoses Encounter for other preprocedural examination KIDA Echo and EKG. Diagnoses Pre-Transplant Evaluation For Esrd (End Stage Renal Disease) [Z01.818] Procedures NH ECHO TTHRC R-T 2D W/WO M-MODE REST&STRS CONT ECG NH ECG ROUTINE ECG W/LEAST 12 LDS W/I&R NH ECG ROUTINE ECG W/LEAST 12 LDS TRCG ONLY W/O I&R Echo Lab 701 [facility] [place] [address] Referral ID Status Reason Start Date Expiration Date Visits Re quested Visits Authorized [id number] Closed 2 2 Encounter Details Date Type Department Care Team (Latest Contact Info) Description 11/20/2023 9:55 AM CDT - 11/20/2023 11:59 PM T Hospital Encounter [facility] Echo Lab 701 [facility] [address] [place] [address] Blayne Quiroz MD [address] [address] Hue Padilla, RATNA [address] [place] [address] Jerel Pena, RN 701 [place] [address] Discharge Disposition: Discharged to home [...] & Specialty Center Cardiology Clinic [address] [address] Denae Mckeon MD 701 [facility] [address] [place] [address] Scheduled Discharge Disposition: Discharged to home or self care 01/01/2024 2:00 PM WHARF TENDER HEAD Office Visit Transplant Program 701 [facility] [address] [place] [address] Ning Leiva MD 701 [facility] [address] [place] [address] Scheduled Discharge Disposition: Discharged to home or [...] ? 67.01 Inches JESSICA Patient Number ?? [id number] ?Weight ? 205 Pounds Date of ?1980 ? BSA ?2.04 m^2 Age ?43 ? Tape Number: Gender ? Male ? Study Date ? 11/20/2023 10:51 AM Lehr Loader ?MA ? Ordering Provider ??CORBY CARUSO Referring ? Interpreting ? Hue Flynn MD Physician ? Physician ?[id number] Type of Study: Stress procedure: ECH EXERCISE [...] HR: 176 bpm ? HR BP Product: 78374 % of predicted HR: 62 ? Max [...] VINAY Height 67.01 Inches JESSICA Patient Number [id number] Weight 205 Pounds Date of 1980 BSA 2.04 m^2 Age 43 Tape Number: Gender Male Study Date 11/20/2023 10:51 AM Lehr Loader MA Ordering Provider CORBY CARUSO Referring Interpreting Hue Flynn MD Physician Physician [id number] Type of Study: Stress procedure: ECH EXERCISE [...] Predicted HR: 176 bpm HR BP Product: 50351 % of predicted HR: 62 Max Exercise: [...] improved withstress. Blayne Quiroz MD RAD ECHO [facility] ROMERO documented in this encounter Visit Diagnoses [...]
--- OUTSIDE RECORDS SUMMARY | 2023-12-13 13:27 | XMS_ITS | Clinical Summary ---
Author Organization [facility] Address [address] [facility] [address] [place] [address] Care Team Providers Care Hotel Supplies Salesperson Name Role Phone No, Pcp Primary Care Provider [phone] Active Problems Problem Noted Date Diagnosed Date End stage renal disease 11/23/2023 Dependence on renal dialysis 11/23/2023 Type 2 diabetes mellitus 11/23/2023 Encounters Date Type Department Care Team Description 12/02/2023 Orders Only [facility] [address] [facility] [address] [place] [address] Julito Cortez MD 11/22/2023 Orders Only [facility] [address] [facility] [address] [place] [address] Julito Cortez MD 11/22/2023 Treatment [facility] [address] [address] Julito Cortez MD 11/08/2023 Orders Only [facility] [address] [address] Julito Cortez MD 11/03/2023 Orders Only [facility] [address] [facility] [address] [place] [address] Julito Cortez MD 09/27/2023 Orders Only [facility] [place] [address] [facility] [address] [place] [address] Julito Cortez MD 09/26/2023 Treatment [facility] [address] [place] [address] Julito Cortez MD from Last 3 Months [...] Urea Reduction 52(L) 65 - 80 % ividence 12/02/2023 12/04/2023 10: 54 AM CDT Narrative [facility] - 12/04/2023 Unless otherwise specified, test(s) performed at: [facility], [address] [place] [address], [place] [address] FOREPART RASPER: Gurdeep Ricardo M.D., Ph.D For any questions, please call customer service at FREQUENCY:MONTHLY Resulting Agency Comment Specimen source: Plasma us Julito Cortez MD LAB BLOOD ORDERABLES Final Resul t [facility] ividence See order comments or contact performing lab Unknown, [place] * (ABNORMAL) POST CHEMISTRY (12/02/2023) Only the most recent of3 resultswithin the time period is included. Pathologist [facility] BUN Post Dialysis 20(H) 6 - 19 mg/dL [facility] 12/02/2023 12/04/2023 10: 54 AM CDT Narrative [facility] - 12/04/2023 Unless otherwise specified, test(s) performed at: [facility], [address] [place] [address], [place] [address] FOREPART RASPER: Gurdeep Ricardo M.D., Ph.D For any questions, please call customer service at FREQUENCY:MONTHLY Resulting Agency Comment Specimen source: Plasma Julito Cortez MD LAB BLOOD ORDERABLES Final Resul t [facility] See order comments [...] 12/04/2023 Unless otherwise specified, test(s) performed at: [facility], [address] [place] [address], [place] [address] FOREPART RASPER: Gurdeep Ricardo M.D., Ph.D For any questions, please call customer service at FREQUENCY:MONTHLY Resulting Agency Comment Specimen source: Blood Julito Cortez MD LAB BLOOD ORDERABLES Final Resul t [facility] See order [...] 12/02/2023 12/04/2023 9:3 8 AM CDT Narrative [facility] - 12/05/2023 Unless otherwise specified, test(s) performed at: [facility], [address] [place] [address], [place] [address] FOREPART RASPER: Gurdeep Ricardo M.D., Ph.D For any questions, please call customer service at FREQUENCY:MONTHLY Resulting Agency Comment Specimen source: Serum Julito Cortez MD LAB BLOOD ORDERABLES Edited Resu lt - Final [facility] See order comments or contact performing lab Unknown, [place] * [facility] Results (12/02/2023) Only the most recent of3 resultswithin the time period is included. WSTDKT/V 2.2 [facility] Simple KT/V (HHD and NXSTAGE) 0.73 [facility] SPKT/V DAUGIRDAS II (HHD & NXSTAGE) 0.78 [facility] 12/02/2023 12/02/2023 [facility] Ordering Provider LAB BLOOD ORDERABLES Final Result [facility] Contact Performing lab Unknown, [place] from Last 3 Months Insurance [place]ICAID [place] Care Teams Hotel Supplies Salesperson Relationship Specialty Start Date End Date No, Pcp PCP - General Internal Medicine 09/10/23
--- OUTSIDE RECORDS SUMMARY | 2023-12-13 13:27 | XMS_ITS | Encounter Summary ---
Author Organization [facility] Address [address] [facility] [address] [place] [address] Care Team Providers Care Racecar Driver Name Role Phone No, Pcp Primary Care Provider [phone] Encounter Details Date Type Department Care Team (Late st Contact Info) Description 11/08/2023 Orders Only [facility] [place] [address] [place] [address] Julito Cortez MD [address] [place] [address] Social History Tobacco Use Types [...] 11/10/2023 Unless otherwise specified, test(s) performed at: [facility], [address] [place] [address], [place] [address] SEARCH COORDINATOR: Gurdeep Ricardo M.D., Ph.D For any questions, please call customer service at FREQUENCY:OTHER Resulting Agency Comment Specimen source: Serum us Julito Cortez MD LAB BLOOD ORDERABLES Final Resul t [facility] See order comments or contact performing lab Unknown, [place] documented in this encounter Visit Diagnoses Not on filedocumented in this encounter Care Teams Racecar Driver Relationship Specialty Start Date End Date No, Pcp PCP - General Internal Medicine 09/10/23 documented as of this encounter
--- OUTSIDE RECORDS SUMMARY | 2023-12-13 13:27 | XMS_ITS | Encounter Summary ---
Author Organization [facility] Address [address] [facility] [address] [place] [address] Care Team Providers Care Bath Steward Name Role Phone No, Pcp Primary Care Provider Encounter Details Date Type Department Care Team (Late st Contact Info) Description 11/22/2023 Orders Only [facility] [place] [address] [place] [address] Julito Cortez MD [address] [place] [address] Social History Tobacco Use Types [...] (11/22/2023) Potassium 5.4(H) 3.5 - 5.1 mEq/L [facility] 11/22/2023 11/23/2023 7:1 8 AM CDT Narrative [facility] - 11/23/2023 Unless otherwise specified, test(s) performed at: [facility], [address] [place] [address], [place] [address] DRIER UNLOADER: Gurdeep Ricardo M.D., Ph.D For any questions, please call customer service at FREQUENCY:OTHER Resulting Agency Comment Specimen source: Serum us Julito Cortez MD LAB BLOOD ORDERABLES Final Resul t [facility] See order comments or contact performing lab Unknown, [place] documented in this encounter Visit Diagnoses Not on filedocumented in this encounter Care Teams Bath Steward Relationship Specialty Start Date End Date No, Pcp PCP - General Internal Medicine 09/10/23 documented as of this encounter
--- OUTSIDE RECORDS SUMMARY | 2023-12-13 13:27 | XMS_ITS | Encounter Summary ---
Author Organization [facility] Address [address] [place] [address] Care Team Providers Care Customizer Name Role Phone No, Pcp Primary Care Provider [phone] Encounter Details Date Type Department Care Team (Late st Contact Info) Description 11/22/2023 Treatment [facility] [place] [address] [place] [address] Julito Cortez MD [address] [facility] [address] [place] [address] Social History Tobacco Use Types [...] Name: Maco Stein : 1980 Chart #: [id number] Sex: M This patient was personally seen for a complete visit as part of routine monthly dialysis care. A review of the dialysis treatment, blood pressure, estimated dry weight and recent lab values was made. These were discussed with the patient and staff as necessary. COMMUNITY DEVELOPMENT MANAGER: Julito Cortez MD LOCATION: [place] [phone]/[phone] SCHEDULE: EDW: kg. DIALYZER: HD DURATION: NEEDLE [...] or CP. has appt next week at [facility] Txp. 06/15/23: Feels well. no concerns. cost was a barrier to getting the Lokelma, hasn't obtained it,yet. 05/01/23: Feels well. no SOB or CP. No N/v/d. Stable wt. BP's are better. 04/10/23: Feels well, 2nd day with 2 16 g needles in. no SOB or CP. 03/01/23: HD going well. but having L AVF/arm discomfort/numbness, worse on the run. has appt at [facility] next Tu with Dr. Solorzano. fingers cool but not cold, no weakness, no pain. Interested in HHD and going to for education tomorrow. referred for txp to [facility]. 01/24/23: Feels well, got his AVF at [facility] yesterday. no arm [...] No SOB or CP. hasn't been to [facility], yet. no N/V. 11/01/22: my second time seeing him. feels better. has had some tinnitus. BP is high but no MORA, blurry vision, CP or SOB. appetite is better. Taking losartan 50 mg/d. 10/02/22: My first time meeting him. his second time here, started here 09/29. Came from [facility] where he initiated. Feels ok today. no SOB or CP Advanced Practitioner Subjective PERFECT BINDER FEEDER OFFBEARER 08/01/2023:Seen on dialysis. Doing well. No SOB, or chest pain reported. Arm access working well; no reported issues. BP slightly elevated. Leaving close to EDW. Potassium improved. Continue plan ofcare. PERFECT BINDER FEEDER OFFBEARER 06/06/2023: Patient seen on dialysis. Doing well. [...] mouth twice a day 07/13/2023 RenaPlex-D (vit b,q-xa-skcj-selen-vit d3-e) 800 mcg-12.5 mg-2,000 unit tablet Take [...] of access: Fistula Surgeon - IR at [facility] Staff and patient report access is working well. Send to Surgeon for access creation. 04/10/23: using AVF d #2 today. 03/01/23: may have steal, going to see surgeon 03/06/23 11/29/23 L AVF at [facility] 01/23/23 (see OP note) 12/25/22: has [facility] appt upcoming 11/01/22: needs AVF eval at [facility] 10/02/22: needs AVF eval at [facility] Anemia Assessment HEMOGLOBIN (G/DL) [...] K+ diet education ongoing 08/13/23: Labs pending PERFECT BINDER FEEDER OFFBEARER 02/08/2023: Educated on low potassium foods. Bone [...] at goal. Intact PTH is at goal. Diesel Engineer will adjust binders and vitamin D per protocol and continue to provide dietary education. 08/13/23: Labs pending Cardiovascular Assessment Blood pressures reviewed and are acceptable. Intradialytic weight gains are appropriate. Estimated dry weight is appropriate. Continue same cardiovascular medications. 11/22/23: erratic BP's and keep log and report to us in 1-2 wks. PERFECT BINDER FEEDER OFFBEARER 05/11/2023 decreased to 95.5 kg 03/01/23: increase 96 12/25/22: increase 93.5 11/24/22: increase 92 11/01/22: increase losartan to 100 mg q evening. next would add CCB, edw 93.5 PERFECT BINDER FEEDER OFFBEARER 10/09/2022: Had been still taking hydralazine; not started losartan. Instructed to make change 10/02/22: d/c hydralazine, add Losartan 50 mg q evening. Transplant Status: Patient has been referred. Center - [facility] 04/10/23: got his LEA in Jan and was referred to [facility], still waiting to hear back 11/24/22: not [...] on filedocumented in this encounter Care Teams Customizer Relationship Specialty Start Date End Date No, Pcp PCP - General Internal Medicine 09/10/23 documented as of this encounter
--- OUTSIDE RECORDS SUMMARY | 2023-12-13 13:27 | XMS_ITS ---
Author Organization [facility] Address [address] [place] [address] Phone Care Team Providers Care Animal Pathologist Name Role Phone Unavailable Primary Care Provider Unavailabl e Transplant Episode Kidney Candidate [facility] [place] Evaluation began on 11/20/2023 Marked as Active on 11/20/2023 Kidney CoordinatorChinyere Valencia RN Phone: N/A Fax: N/A Email: N/A Care Team Name Role Phone Fax Email Chinyere Valencia RN Kidney Coordinator N/A N/A N/A Jean Ochoa DO TXP Info Surgeon [phone] N/A Julito Cortez MD Auditor Supervisor Referring Auditor Supervisor Referring Provider [phone] N/A Kidney Spec [facility] Referring Nephrology Group TXP Nephrology Group N/A N/A N/A Chinyere Valencia RN TXP Pre Coordinator N/A N/A N/A Events Pre-Transplant Referred: 05/11/2023 Evaluation began: 11/20/2023 Committee: 07/20/2023 Appointments (11/13/2023 - 01/13/2024) When With Description 11/20/2023 Transplant - Kamala Simental Chronic kidne y disease (Primary Dx) 11/20/2023 Transplant - Stacia Goode Encount er for pre-transplant evaluation for kidney transplant (Primary Dx) 01/01/2024 Transplant - Jessi Leiva Sche duled Dialysis History Dialysis History Start End Type Comments Center Home Hemodialysis [facility] Dialysis Center Information Center Phone Fax Address [facility] [phone] [address] [facility] [address]
--- OUTSIDE RECORDS SUMMARY | 2023-12-13 13:27 | XMS_ITS | Encounter Summary ---
Author Organization [facility] Address [address] [place] [address] Phone Care Team Providers Care Fixture Relamper Name Role Phone Unavailable Primary Care Provider Unavailabl e Encounter Details Date Type Department Care Team (Late Contact Info) Description 11/01/2023 Documentation Only Transplant Program [address] [place] [address] Williams Lindquist Transplant Bell Staff [address] [place], [place] [id number] Social History Tobacco Use Types Packs/Day Years Used Date Smoking Tobacco: Never Assessed Sex and Gender Information Value Date Recorded Sex Assigned at Not on file Gender Identity Not on file Sexual Orientation Not on file documented as of this encounter Progress Notes * Williams Lindquist Transplant Bell Staff - 11/01/2023 1:48 PM CDT D/A: The following secure email was sent to Rin, patient's hardboard factory worker. Lopez Gar, Sorry to bother you, but I'm wondering if you have received the [facility] approved renewed ESRD Care Planon Maco Stein? He has transplant evaluation appointments scheduled and I'm afraid we'll have to cancel them if we don't have a current Care Plan in place. Thanks for your help, Williams Hui: Response pending. Brenna Lindquist, Transplant Bell Staff, October 13:49 documented in this encounter Plan of Treatment Upcoming Encounters Date Type Department Care Team (Late st Contact Info) Description 12/18/2023 11:00 AM CDT Office Visit Clinic & Specialty Center Cardiology Clinic [address] [place] [address] Denae Mckeon MD [address] [place] [address] Scheduled Discharge Disposition: Discharged to home or self care 01/01/2024 2:00 PM FINAL ASSEMBLY AND PACKING SUPERVISOR Office Visit Transplant Program 701 [facility] [address] [place] [address] Ning Leiva MD [address] [place], [place] [address] Scheduled Discharge Disposition: Discharged to home or self care documented as of this encounter Visit Diagnoses Not on filedocumented in this encounter
--- OUTSIDE RECORDS SUMMARY | 2023-12-13 13:27 | XMS_ITS | Encounter Summary ---
Author Organization [facility] Address 1 [place] [address] Phone Care Team Providers Care Operations Expert Name Role Phone Unavailable Primary Care Provider Unavailabl e Encounter Details Date Type Department Care Team (Late st Contact Info) Description 04/25/2023 Abstract Transplant Program [address] [place] [address] [facility] [place] [address] Williams Lindquist, Transplant Prison Guard [address] [place] [address] Social History Tobacco Use Types Packs/Day Years [...] & Specialty Center Cardiology Clinic [address] [address] Denae Mckeon MD 701 [facility] [address] [place] [address] Scheduled Discharge Disposition: Discharged to home or self care 01/01/2024 2:00 PM VAT WASHER Office Visit Transplant Program 1 [facility] [address] [place] [address] Ning Leiva MD 701 [facility] [address] [place] [address] Scheduled Discharge Disposition: Discharged to home or self care documented as of this encounter Visit Diagnoses Not on filedocumented in this encounter
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
--- NOTE | 2023-12-13 13:30 | CRLHL7_ITS ---
For Patients: As a result of the Century Cures Act, medical imaging exams and procedure reports are released immediately into your electronic medical record. You may view this report before your referring provider. If you have questions, please contact your health care provider. INDICATION: Osteomyelitis. Foot wound. Type 2 diabetes. TECHNIQUE: Two views of left foot COMPARISON: None FINDINGS: Chronic postop changes of great toe amputation to the level of the metatarsal head. Forefoot soft tissue swelling and erosive changes at the little toe distal phalanx, suspicious for osteomyelitis. Erosion along the lateral aspect of the 5th metatarsal head also raising question of osteomyelitis. Degenerative changes. Small artery calcification, consistent with diabetes. IMPRESSION: 1. Suspected osteomyelitis involving little toe distal phalanx and erosion along the lateral aspect of the 5th metatarsal head also raising concern of osteomyelitis. 2. 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 Dictated by Braxton Quintanilla MD @ 12/17/2023 7:54:24 AM (Electronically Signed)
== END 2023-12-13 13:22 | disposition home or self-care (01) ==
LOC: RAD 13:22
PROVIDERS: PCP Physician Assistant Medical; Visit Provider Surgery
DX: E11.69 Type 2 diabetes mellitus with other specified complication (principal); E11.628 Type 2 diabetes mellitus with other skin complications; L08.9 Local infection of the skin and subcutaneous tissue, unspecified
CPT/HCPCS: 73620

== ENCOUNTER 2023-12-14 20:31 | Emergency (ER) | payer MEDICAID, SELFPAY ==
[2023-12-14] VITALS (47 sets, daily range): BP systolic 83–121; BP diastolic 48–70; PULSE 56–71; RESP 11–56; TEMP 36.3–36.4; O2SAT 83–100; BMI 30.7
--- NOTE | 2023-12-14 20:46 | CRLHL7_ITS ---
For Patients: As a result of the Century Cures Act, medical imaging exams and procedure reports are released immediately into your electronic medical record. You may view this report before your referring provider. If you have questions, please contact your health care provider. INDICATION: Cough. TECHNIQUE: Chest 1 view. COMPARISON: 10/19/2023. FINDINGS: Cardiovascular and mediastinum: Stable cardiomediastinal silhouette. Lungs and pleural spaces: Lungs are clear. No sign of infiltrate or mass. No sign of pleural effusion. No pneumothorax. Bones and soft tissues: No significant findings. IMPRESSION: No consolidation. Dictated by Sylvester Villavicencio MD @ 12/14/2023 10:23:49 PM (Electronically Signed)
--- NOTE | 2023-12-14 20:49 | ED_ITS ---
HPI - General Adult General Chief complaint: Weakness Stated complaint: Low BP Time Seen by Provider: 12/14/23 20:45 History of Present Illness HPI narrative: Pt was at dialysis today and experienced weakness. Has a left foot ulcer that is down to bone per family. Pt feeling fatigued as well as weak and dizzy. He also states he has cloudy vision. 43-year-old man presenting to the emergency department with concern of weakness. Does receive dialysis and having just completed his dialysis run began to feel more lightheaded and seeing spots. Has been struggling recently with a pneumonia parent lead diagnosed a month ago initially in 1 lung the report and now in both. Has also being treated for a wound on the left 5th toe. ?exposed bone? they say. Wound culture noted as below. He is coughing he says and when he starts coughing then he started vomiting. Has not had a noted fever. Is not reporting chest pain. Expecting consultation to discuss amputation of this toe On reassessment is reporting that he was feeling like his head was in a bucket that it is hard to hear us talking to him in some way. This is how he would describe what was interpreted initially as lightheadedness perhaps. Did have 1.1 L removed. Last dialysis was 3 days ago and before that was 4 days ago. On his own schedule but usually is dialyzed 4 days a week. On review of record I see 7 weeks ago a hemoglobin of 8.8 though I believe family notes that was 7.8 December 04 and was initiated on treatment for anemia. He denies dark stools or hematemesis. It appears that received azithromycin and Augmentin on 10/19/2023 for pneumonia and reports just today finishing another Z-Waldo also apparently for his lungs. Specimen: [id number] COMP Collected: 11/28/23-UNK Received: 11/28/23 -1231 Source: Foot Lt Sp Descrip: Sub Dr: Mariola Higgins M.D. Other Dr: Procedure Result Site Wound Culture* Final ML Organism 1 ENTEROBACTER CLOACAE COMPLEX Quantity of Growth Moderate amount LARGE AMOUNT ALPHA HEMOLYTIC STREP BUT NOT STREP PNEUMO. NO FURTHER WORKUP ENTCPX CHRISTAL RX --------- --- Cefazolin >=64 R Cefepime <=1 S Cefoxitin >=64 R Ceftazidime <=1 S Ceftriaxone <=1 S Ciprofloxacin <=0.25 S Ertapenem <=0.5 S Gentamicin <=1 S Imipenem <=0.25 S Levofloxacin <=0.12 S Tobramycin <=1 S Trimethoprim/Sulfamethoxazole <=20 S Related Data Home Medications ?Medication ?Instructions ?Recorded ?Confirmed clonidine HCl 0.1 mg tablet 0.1 mg PO DAILY 09/14/22 10/19/23 diltiazem HCl 240 mg 240 mg PO DAILY 09/14/22 09/14/22 capsule,extended release 24 hr hydralazine 50 mg tablet 150 mg PO BID 09/14/22 09/14/22 losartan 100 mg tablet 100 mg PO DAILY 09/14/22 10/19/23 metformin 500 mg tablet,extended 500 mg PO BID 09/14/22 09/14/22 release 24 hr amlodipine 10 mg tablet 10 mg PO DAILY 10/19/23 10/19/23 carvedilol 6.25 mg tablet 6.25 mg PO BID 10/19/23 10/19/23 cyclobenzaprine 5 mg tablet 5 mg PO 3XD PRN 10/19/23 10/19/23 gabapentin 300 mg capsule 300 mg PO DAILY PRN 10/19/23 10/19/23 nifedipine 30 mg tablet,extended 30 mg PO BID 10/19/23 10/19/23 release sertraline 25 mg tablet mg PO 10/19/23 sertraline 50 mg tablet 50 mg PO DAILY 10/19/23 10/19/23 sevelamer carbonate 800 mg tablet 2,400 mg PO 3XD 10/19/23 10/19/23 sodium zirconium cyclosilicate 10 g PO 10/19/23 gram oral powder packet (Lokelwv) vit B,C-folic ac 800 mcg-zinc 12.5 1 tab PO DAILY 10/19/23 10/19/23 mg-selen-D3 2,000 unit-vit E tablet (RenaPlex-D) Previous Rx's ?Medication ?Instructions ?Recorded amoxicillin 500 mg-potassium 1 tab PO BID #10 tabs 10/19/23 clavulanate 125 mg tablet (Augmentin) azithromycin 250 mg tablet 500 mg PO DIRECTED #6 tabs 10/19/23 Allergies Allergy/AdvReac Type Severity Reaction Status Date / Time Latex, Natural Rubber Allergy Verified 12/14/23 20:42 tramadol [From Ultram] Allergy Verified 12/14/23 20:42 Review of Systems Status of ROS: Reports: 6 or more systems reviewed and unremarkable except as noted in History and below [facility] Medical History Chronic kidney disease ?N18.9 - Chronic kidney disease, unspecified (ICD-10) Hypertension ?I10 - Essential (primary) hypertension (ICD-10) Type 2 diabetes mellitus ?E11.9 - Type 2 diabetes mellitus without complications (ICD-10) Social History Smoking Status: Never smoker How often do you have a drink containing alcohol: never AUDIT-C Alcohol total score: 0 Non-prescribed substance use: denies use Exam Narrative: Exam Narrative: Seems a little distracted. Takes a few beats to respond to questions. I see Mr. Woodard initially in reverse Trendelenburg. Cranial nerves 2-12 intact. Moving all extremities without difficulty. Skin is little cool. No rashes noted. Heart in slow and regular rhythm. Noninflamed fistula in the left arm. Oropharynx is moist without erythema or cobblestoning. Lungs appear clear. Abdomen is overweight soft nontender Left foot in question has deeply eroded medial aspect of the 5th toe. I do not see surrounding erythema or swelling. There is a nickel to quarter-sized ulceration also on the plantar surface of same MTP joint area. No wounds are draining really. Trace amount of drainage looks to be lightly serosanguineous dried on gauze that has been placed. Otherwise area is painted with gentian rojelio. Const: Vital Signs, click to edit/add: Vital Signs - 24 hr 12/14/23 20:39 12/14/23 20:42 12/14/23 20:47 Temperature 97.6 F 97.6 F Pulse Rate Pulse Rate [Right Pulse Oximeter] 60 Respiratory Rate 56 H Blood Pressure Blood Pressure [Ri ght Upper Arm] 83/50 L Pulse Oximetry 91 91 Oxygen Delivery Me thod Room Air Oxygen Flow Rate 12/14/23 20:53 12/14/23 20:54 12/14/23 20:57 Temperature Pulse Rate 56 L 57 L 57 L Pulse Rate [Right Pulse Oximeter] Respiratory Rate 18 Blood Pressure 89/48 L 92/49 L Blood Pressure [Ri ght Upper Arm] Pulse Oximetry 96 95 88 Oxygen Delivery Me thod Oxygen Flow Rate 12/14/23 21:00 12/14/23 21:02 12/14/23 21:07 Temperature Pulse Rate 57 L 56 L 56 L Pulse Rate [Right Pulse Oximeter] Respiratory Rate Blood Pressure 99/52 L 100/52 L Blood Pressure [Ri ght Upper Arm] Pulse Oximetry 98 83 L 84 L Oxygen Delivery Me thod Oxygen Flow Rate 12/14/23 21:12 12/14/23 21:15 12/14/23 21:17 Temperature Pulse Rate 56 L 57 L 59 L Pulse Rate [Right Pulse Oximeter] Respiratory Rate Blood Pressure 96/50 L 94/54 L Blood Pressure [Ri ght Upper Arm] Pulse Oximetry 91 89 88 Oxygen Delivery Me thod Nasal Cannula Oxygen Flow Rate 2 12/14/23 21:18 12/14/23 21:22 12/14/23 21:27 Temperature Pulse Rate 58 L 60 62 Pulse Rate [Right Pulse Oximeter] Respiratory Rate Blood Pressure 101/56 L 95/51 L Blood Pressure [Ri ght Upper Arm] Pulse Oximetry 91 92 96 Oxygen Delivery Me thod Oxygen Flow Rate 12/14/23 21:30 12/14/23 21:32 12/14/23 21:37 Temperature Pulse Rate 63 65 66 Pulse Rate [Right Pulse Oximeter] Respiratory Rate Blood Pressure 108/52 L 107/53 L Blood Pressure [Ri ght Upper Arm] Pulse Oximetry 91 100 91 Oxygen Delivery Me thod Oxygen Flow Rate 12/14/23 21:42 12/14/23 21:45 12/14/23 21:47 Temperature Pulse Rate 67 67 68 Pulse Rate [Right Pulse Oximeter] Respiratory Rate Blood Pressure 109/57 L 108/58 L Blood Pressure [Ri ght Upper Arm] Pulse Oximetry 93 95 94 Oxygen Delivery Me thod Oxygen Flow Rate 12/14/23 21:52 12/14/23 21:57 12/14/23 22:00 Temperature Pulse Rate 68 69 68 Pulse Rate [Right Pulse Oximeter] Respiratory Rate Blood Pressure 109/56 L 105/58 L Blood Pressure [Ri ght Upper Arm] Pulse Oximetry 93 93 93 Oxygen Delivery Me thod Oxygen Flow Rate 12/14/23 22:02 12/14/23 22:07 12/14/23 22:08 Temperature Pulse Rate 68 68 69 Pulse Rate [Right Pulse Oximeter] Respiratory Rate Blood Pressure 101/61 108/56 L Blood Pressure [Ri ght Upper Arm] Pulse Oximetry 100 92 91 Oxygen Delivery Me thod Oxygen Flow Rate 12/14/23 22:12 12/14/23 22:15 12/14/23 22:17 Temperature Pulse Rate 69 69 71 Pulse Rate [Right Pulse Oximeter] Respiratory Rate Blood Pressure 107/59 L 106/60 Blood Pressure [Ri ght Upper Arm] Pulse Oximetry 91 92 91 Oxygen Delivery Me thod Oxygen Flow Rate 12/14/23 22:22 12/14/23 22:27 12/14/23 22:30 Temperature Pulse Rate 69 70 69 Pulse Rate [Right Pulse Oximeter] Respiratory Rate Blood Pressure 107/57 L 110/58 L Blood Pressure [Ri ght Upper Arm] Pulse Oximetry 93 87 L 89 Oxygen Delivery Me thod Oxygen Flow Rate 12/14/23 22:32 12/14/23 22:37 12/14/23 22:42 Temperature Pulse Rate 70 70 70 Pulse Rate [Right Pulse Oximeter] Respiratory Rate Blood Pressure 108/60 106/57 L 111/58 L Blood Pressure [Ri ght Upper Arm] Pulse Oximetry 85 L 91 85 L Oxygen Delivery Me thod Oxygen Flow Rate 12/14/23 22:45 12/14/23 22:47 12/14/23 22:52 Temperature Pulse Rate 71 70 70 Pulse Rate [Right Pulse Oximeter] Respiratory Rate Blood Pressure 111/58 L 114/61 Blood Pressure [Ri ght Upper Arm] Pulse Oximetry 88 87 L 85 L Oxygen Delivery Me thod Oxygen Flow Rate 12/14/23 22:57 12/14/23 23:00 12/14/23 23:02 Temperature Pulse Rate 70 70 69 Pulse Rate [Right Pulse Oximeter] Respiratory Rate Blood Pressure 112/59 L 112/64 Blood Pressure [Ri ght Upper Arm] Pulse Oximetry 83 L 89 86 L Oxygen Delivery Me thod Oxygen Flow Rate 12/14/23 23:07 12/14/23 23:08 12/14/23 23:25 Temperature 97.5 F L 97.4 F L Pulse Rate 70 69 Pulse Rate [Right Pulse Oximeter] 70 Respiratory Rate 17 18 Blood Pressure 116/70 116/70 Blood Pressure [Ri ght Upper Arm] 110/59 L Pulse Oximetry 93 91 94 Oxygen Delivery Me thod Room Air Nasal Can nula Nasal Cannula Oxygen Flow Rate 2 2 12/14/23 23:30 12/14/23 23:51 Temperature 97.6 F 97.5 F L Pulse Rate 70 Pulse Rate [Right Pulse Oximeter] 71 Respiratory Rate 20 11 L Blood Pressure 116/59 L Blood Pressure [Ri ght Upper Arm] 121/61 Pulse Oximetry 96 99 Oxygen Delivery Me thod Nasal Cannula Nasal Cannula Oxygen Flow Rate 2 2 Documenting provider has reviewed patient's vital signs: yes Course Vital Signs Vital signs: Initial Vital Signs Temperature 97.6 F 12/14/23 20:39 Temperature Source Temporal Artery Scan 12/14/23 20:39 Pulse Rate 60 12/14/23 20:39 Pulse Rhythm Regular 12/14/23 20:39 Pulse Strength 3+ Normal 12/14/23 20:39 Respiratory Rate 56 H 12/14/23 20:39 Blood Pressure 83/50 L 12/14/23 20:39 Blood Pressure Mean 61 L 12/14/23 20:39 Blood Pressure Position Sitting 12/14/23 20:39 Pulse Oximetry 91 12/14/23 20:39 Oxygen Delivery Method Room Air 12/14/23 20:39 Vital Signs Temperature 97.6 F 12/14/23 20:39 Pulse Rate 60 12/14/23 20:39 Respiratory Rate 56 H 12/14/23 20:39 Blood Pressure 83/50 L 12/14/23 20:39 Pulse Oximetry 91 12/14/23 20:39 Oxygen Delivery Method Room Air 12/14/23 20:39 Temperature 97.5 F L 12/14/23 23:51 Pulse Rate 71 12/14/23 23:51 Respiratory Rate 11 L 12/14/23 23:51 Blood Pressure 121/61 12/14/23 23:51 Pulse Oximetry 99 12/14/23 23:51 Oxygen Delivery Method Nasal Cannula 12/14/23 23:51 Oxygen Flow Rate 2 12/14/23 23:51 Medical Decision Making MDM Narrative Medical decision making narrative: Differential does include sepsis. Will need to be clear full with hydration though does make urine. Initial bolus of 500 mL reassess. Do not get the sense that this is as much of a sepsis picture as a dialysis- induced hypotension in the setting of anemia. Does have some potential sources of sepsis however including his left 5th toe/foot and lungs. After 500 mL normal saline bolus blood pressure is 108/56. He is no longer requiring reverse Trendelenburg. Is on 2 L of oxygen via nasal cannula satting 92% with improving blood pressure, would wait with further fluid resuscitation. And furthermore with hemoglobin of 6.8, white count of 12.5, I am anticipating blood transfusion. This should help with volume if needed. Pending further antibiotics. One-view portable chest by me looks to show some mild cardiomegaly. Compared to prior chest x-ray looks like infiltrates have cleared. Radiology over-read below TECHNIQUE: Chest 1 view. COMPARISON: 10/19/2023. FINDINGS: Cardiovascular and mediastinum: Stable cardiomediastinal silhouette. Lungs and pleural spaces: Lungs are clear. No sign of infiltrate or mass. No sign of pleural effusion. No pneumothorax. Bones and soft tissues: No significant findings. IMPRESSION: No consolidation. Without ability to dialyze, did inquire as to tertiary care elsewhere. Ultimately did receive acceptance at [place]. 4-6 hour wait noted initially Markedly improved over time in the emergency department. 11:00 p.m. blood pressure is 112/64. Pulse remains slow. He does take a beta-sung. Pulse ox though 86% on nasal cannula 2 L Midnight reassessment with 99% on 2 L and blood pressure 121/61. Blood transfusion in process Trial off oxygen now at 96% on room air Medical Records Medical records reviewed: Yes I reviewed the patient's medical records Lab Data Lab results reviewed: Yes I reviewed the patient's lab results Labs: Lab Results 12/14/23 12/14/23 12/14/23 Range/Units 20:50 21:25 21:28 WBC 12.47 H (4.50-11.00) K/uL RBC 2.15 L (4.30-5.90) m/uL Hgb 6.8 L* (13.5-17.5) gm/dL Hct 21.0 L (37.0-53.0) % MCV 98 (80-100) fL MCH 32 (26-34) pg MCHC 32 (32-36) gm/dL RDW Coeff of Carol Ann 13.9 (11.5-15.5) % Plt Count 93 L (140-440) K/uL Neut % (Auto) 86.6 H (42.0-72.0) % Lymph % (Auto) 7.4 L (20-44) % [place] % (Auto) 5.3 (0.0-11.0) % Eos % (Auto) 0.2 (0.0-7.0) % Baso % (Auto) 0.2 (0.0-3.0) % Neut # (Auto) 10.80 H (1.7-7.0) K/uL Lymph # (Auto) 0.90 (0.90-2.90) K/uL [place] # (Auto) 0.70 (0.00-0.90) K/UL Eos # (Auto) 0.00 (0.00-0.50) K/uL Baso # (Auto) 0.00 (0.00-0.30) K/uL Abs Immat Gran (auto) 0.00 (0.00-0.30) K/uL Imm/Tot Granulo (auto) 0.3 % Sodium 129 L (135-149) mmol/L Potassium 4.3 (3.6-5.1) mmol/L Chloride 88 L (96-114) mmol/L Carbon Dioxide 18 L (20-32) mmol/L Anion Gap 23 H (7-15) mEq/L BUN 52 H (5-24) mg/dL Creatinine 6.5 H (0.5-1.5) mg/dL Estimated Creat Clear 14.50 Estimated GFR 10 ml/min Glucose 276 H (60-115) mg/dL Calcium 9.4 (8.4-10.6) mg/dL Phosphorus 4.5 (2.5-4.5) mg/dL Total Bilirubin 0.9 (0.1-1.5) mg/dL Direct Bilirubin 0.7 H (0.0-0.5) mg/dL AST 382 H (12-35) U/L ALT 272 H (4-50) U/L Alkaline Phosphatase 127 (40-150) U/L Troponin I 0.05 H (0.01-0.04) ng/mL Total Protein 7.7 (6.0-8.3) g/dL Albumin 4.2 (3.3-5.0) g/dL Lab Acknowledgement Test Added Blood Type O Positive Antibody Screen NEGATIVE Crossmatch (AHG) See Detail 12/14/23 Range/Units 21:31 WBC (4.50-11.00) K/uL RBC (4.30-5.90) m/uL Hgb (13.5-17.5) gm/dL Hct (37.0-53.0) % MCV (80-100) fL MCH (26-34) pg MCHC (32-36) gm/dL RDW Coeff of Carol Ann (11.5-15.5) % Plt Count (140-440) K/uL Neut % (Auto) (42.0-72.0) % Lymph % (Auto) (20-44) % [place] % (Auto) (0.0-11.0) % Eos % (Auto) (0.0-7.0) % Baso % (Auto) (0.0-3.0) % Neut # (Auto) (1.7-7.0) K/uL Lymph # (Auto) (0.90-2.90) K/uL [place] # (Auto) (0.00-0.90) K/UL Eos # (Auto) (0.00-0.50) K/uL Baso # (Auto) (0.00-0.30) K/uL Abs Immat Gran (auto) (0.00-0.30) K/uL Imm/Tot Granulo (auto) % Sodium (135-149) mmol/L Potassium (3.6-5.1) mmol/L Chloride (96-114) mmol/L Carbon Dioxide (20-32) mmol/L Anion Gap (7-15) mEq/L BUN (5-24) mg/dL Creatinine (0.5-1.5) mg/dL Estimated Creat Clear Estimated GFR ml/min Glucose (60-115) mg/dL Calcium (8.4-10.6) mg/dL Phosphorus (2.5-4.5) mg/dL Total Bilirubin (0.1-1.5) mg/dL Direct Bilirubin (0.0-0.5) mg/dL AST (12-35) U/L ALT (4-50) U/L Alkaline Phosphatase (40-150) U/L Troponin I (0.01-0.04) ng/mL Total Protein (6.0-8.3) g/dL Albumin (3.3-5.0) g/dL Lab Acknowledgement Test Added Blood Type Antibody Screen Crossmatch (AHG) ECG Data Attestation: I personally reviewed and interpreted this ECG as follows: (Sinus bradycardia at 57) Critical Care Time Critical Care Time Critical Care Time: Yes Attestation: The patient required my highest level preparedness to intervene emergently and I personally spent this critical care time directly and personally managing the patient. This critical care time included: Obtaining a history; Examining the patient; Pulse oximetry; Ordering and reviewing of studies; Arranging urgent treatment with development of a management plan; Evaluation of patients response to treatment; Frequent reassessment discussions with other providers. This critical care time was performed to assess and manage the high probability of imminent life-threatening deterioration that could result in multiorgan failure. It was exclusive of separate billable procedures and treating other patients and teaching time. Total Critical Care Time in Minutes: 45 Discharge Plan Discharge Clinical Impression: Pre-syncope, Anemia, Hypotension, Elevated liver transaminase level, Renal failure, Diabetic foot infection Patient Disposition: Xfer Other Discharge Location: [facility] Condition: Stable Prescriptions: No Action clonidine HCl 0.1 mg tablet 0.1 mg PO DAILY diltiazem HCl 240 mg capsule,extended release 24hr 240 mg PO DAILY hydralazine 50 mg tablet 150 mg PO BID losartan 100 mg tablet 100 mg PO DAILY metformin 500 mg tablet extended release 24 hr 500 mg PO BID carvedilol 6.25 mg tablet 6.25 mg PO BID nifedipine 30 mg tablet extended release 30 mg PO BID amlodipine 10 mg tablet 10 mg PO DAILY gabapentin 300 mg capsule 300 mg PO DAILY PRN sertraline 25 mg tablet PO sertraline 50 mg tablet 50 mg PO DAILY cyclobenzaprine 5 mg tablet 5 mg PO 3XD PRN sevelamer carbonate 800 mg tablet 2,400 mg PO 3XD RenaPlex-D 800 mcg-12.5 mg -2,000 unit tablet 1 tab PO DAILY Lokelma 10 gram powder in packet PO amoxicillin-pot clavulanate [Augmentin] 500-125 mg tablet 1 tab PO BID Qty: 10 0RF azithromycin 250 mg tablet 500 mg PO DIRECTED Qty: 6 0RF Taper: Z-WALDO 500 mg Q24H for 1 Day and 0 Hour 250 mg Q24H for 4 Days and 0 Hour Rx Instructions: For 250 mg dose pack: take 500 mg today (day 1), then 250 mg for 4 days (days 2-5) Follow Up/Referrals: Daysi Pires PAAshutosh [Primary Care Provider] - Stand Alone Forms: [facility] Info Instructions
[2023-12-14 21:05] LABS: Basophils Percent Auto 0.2 % (0.0-3.0); Eosinophils Percent Auto 0.2 % (0.0-7.0); Immature Granulocytes Pct Auto 0.3 %; Lymphocytes Percent Auto 7.4 % (20-44); Mean Corpuscular HGB Conc 32 gm/dL (32-36); Mean Corpuscular Hemoglobin 32 pg (26-34); Mean Corpuscular Volume 98 fL (80-100); Monocytes Percent Auto 5.3 % (0.0-11.0); Neutrophils Percent Auto 86.6 % (42.0-72.0); Platelet Count* 93 K/uL (140-440); RDW Coefficient of Variation % 13.9 % (11.5-15.5); Red Blood Count 2.15 m/uL (4.30-5.90); White Blood Count* 12.47 K/uL (4.50-11.00)
[2023-12-14 21:07] LABS: Slide Review Reflex No
[2023-12-14 21:09] LABS: Hemoglobin* 6.8 gm/dL (13.5-17.5)
--- OUTSIDE RECORDS SUMMARY | 2023-12-14 21:12 | XMS_ITS | Clinical Summary ---
Author Organization [facility] Address [address] [place] [address] Phone Care Team Providers Care Faith Doctor Name Role Phone Unavailable Primary Care Provider Unavailabl e Source Comments [facility] is fully rolled out on [employer]. Last update 07/31/08.[facility] Allergies Active Allergy Reactions Criticality Noted Date [...] to chronic kidney disease, on chronic dialysis ([facility]) 10/13/2022 Anxiety 10/13/2022 HTN (hypertension) 09/15/2022 Diabetes mellitus ([facility]) 01/27/2002 Encounters Date Type Department Care Team Description 11/22/2023 Orders Only Transplant Program [address] [place] [address] Chinyere Valencia RN Pre-transplant evaluation for ESRD (end stage renal disease) (Primary Dx) 11/21/2023 Abstract Transplant Program [address] [place] [address] Chinyere Valencia RN 11/20/2023 2:30 PM CDT Nurse Only Transplant Program [address] [place] [address] Neva Carbajal MBBS Rn, [facility]-Pre Recipient Chronic kidney disease (Primary Dx) Discharge Disposition: Discharged to home or self care 11/20/2023 1:30 PM CDT Office Visit Transplant Program [address] [place] [address] Neva Carbajal MBBS Gjesvold, Donna E, RD, LD Encounter for pre-transplant evaluation for kidney transplant (Primary Dx) Discharge Disposition: Discharged to home or self care 11/20/2023 12:29 PM CDT - 11/20/2023 11:59 PM CDT Hospital Encounter [facility] [address] [place] [address] Blayne Quiroz MD Discharge Disposition: Discharged to home or self care 11/20/2023 12:08 PM CDT - 11/20/2023 11:59 PM CDT Hospital Encounter [facility] [address] [place] [address] lBayne Quiroz MD Discharge Disposition: Discharged to home or self care 11/20/2023 9:57 AM CDT - 11/20/2023 11:59 PM CDT Hospital Encounter [facility] EKG [address] [place] [address] Blayne Quiroz MD Intensive Care Specialist, Ekg Discharge Disposition: Discharged to home or self care 11/20/2023 9:55 AM CDT - 11/20/2023 11:59 PM CDT Hospital Encounter [facility] Echo Lab [address] [place] [address] Blayne Quiroz MD Alvarado, Michelle, BUSINESS OFFICE COORDINATOR Jerel Pena, 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 Disposition: Discharged to home or self care 11/20/2023 Travel 11/01/2023 Documentation Only Transplant Program [address] [place] [address] Williams Lindquist Transplant [employer]osed Circuit Screen Watcher 10/03/2023 Documentation Only Transplant Program [address] [place] [address] Williams Lindquist Transplant [employer]osed Circuit Screen Watcher 09/26/2023 Abstract Transplant Program [address] [place] [address] Williams Lindqusit Transplant Closed Circuit Screen Watcher from Last 3 Months Social History Tobacco [...] [facility]ty [facility] Cardiology Clinic [address] [address] Denae Mckeon MD [address] [facility] [address] [place] [address] Scheduled Discharge Disposition: Discharged to home or self care 01/01/2024 2:00 PM RN CASE MANAGEMENT Office Visit Transplant Program [address] [facility] [address] [place] [address] Ning Leiva MD [address] [facility] [address] [place], [place] [address] Scheduled Discharge Disposition: Discharged to home or [...] Donor, Chagas Screen Non Reactive Non Reactive [facility] Blood 11/20/2023 1:20 PM CDT 11/23/2023 11:23 AM CDT [facility] Performing Organization Address City/[facility]/ZIP Co de Phone Number [employer] [address] [place] [address] * COCCIDIOIDES AB SCREEN WITH REFLEX (11/20/2023 1:20 PM CDT) Coccidioides Antibody Negative Negative [facility] [address] [facility] Comment: Repeat testing on a new sample in 2-3 weeks if clinically indicated. ADDITIONAL INFORMATION This test has been modified from the instructor of sociology's instructions. Its performance characteristics were determined by [facility] in a manner consistent with CLIA requirements. This test has not been cleared or approved by the U.S. Food and Drug Administration. Test Performed by: [facility] - [address] [address] Hr Payroll Coordinator: Sawyer Alejandre Ph.D.; CLIA# [id number] Serum 11/20/2023 1:20 PM CDT 11/20/2023 2:24 PM CDT Narrative [facility] [employer] SU[facility] - 11/21/2023 8:16 PM CDT Bill to Corporate Kidney Acquisition Account Neva Carbajal [facility] Performing Organization Address City/[facility]/ZIP Co de Phone Number [facility] [address] SU[facility]TR [address] [place] [phone] * (ABNORMAL) QUANTIFERON-TB GOLD PLUS (11/20/2023 1:20 PM CDT) Pathologist [facility] QuantiFERON TB Gold Plus Positive( A) Negative [facility] QFT TB 1 0.19 [facility] QFT TB 2 0.35 [facility] QFT TB MITOGEN 9.94 [facility] QFT NIL 0.06 [facility] Blood 11/20/2023 1:20 PM CDT 11/22/2023 7:34 AM CDT Narrative [facility] - 11/22/2023 10:36 AM CDT Bill to Corporate Kidney Acquisition ??Account [facility] [address] [address] * HIV COMBO (11/20/2023 1:20 PM CDT) [facility] HIV Antigen-Antibody Nonreactive Nonreactive [facility] Comment:Performance characte ristics have not been established with this test on patients less than 2 years of age. Blood 11/20/2023 1:20 PM CDT 11/20/2023 2:24 PM CDT Narrative [facility] - 11/20/2023 3:20 PM CDT Bill to Corporate Kidney Acquisition Account [facility] Performing Organization Address City/[facility]/ZIP Co de Phone Number [facility] [address] [address] * HEPATITIS B CORE TOTAL THEE (11/20/2023 1:20 PM CDT) Pathologist [facility] HBV Core Total Thee Nonreactive Nonreactive [facility] Blood 11/20/2023 1:20 PM CDT 11/20/2023 3:41 PM CDT Narrative [facility] - 11/20/2023 4:11 PM CDT Bill to Corporate Kidney Acquisition Account [facility] Performing Organization Address City/[facility]/ZIP Co de Phone Number [facility] [address] [address] * (ABNORMAL) CBC WITH PLTS/AUTO DIFF (11/20/2023 1:20 PM CDT) WBC 4.75 4.00 - 10.00 k/cmm [facility] RBC 2.54(L) 4.60 - 6.00 m/cmm [facility] Hgb 8.4(L) 13.1 - 17.5 g/dL [facility] Hematocrit 24.7(L) 40.0 - 51.0 % [facility] MCV 97.2 80.0 - 100.0 fL [facility] MCH 33.1(H) 25.0 - 32.0 pg [facility] MCHC 34.0 31.0 - 36.0 g/dL [facility] RDW 14.5 11.5 - 14.5 % [facility] Plt 92(L) 150 - 400 k/cmm [facility] MPV 11.6 6.5 - 12.5 fL [facility] Automated Abs Neutrophil 3.10 1.70 - 6.50 k/cmm [facility] Comment:Preliminary ANC, Fin al Result to Follow Abs Immature Granulocyte 0.01 0.00 - 0.09 k/cmm [facility] Comment:The Immature Granulo cyte Absolute count contains metamyelocytes and myelocytes. Abs Neutrophil 3.10 1.70 - 6.50 k/cmm [facility] Abs Lymphocyte 1.09 0.80 - 4.00 k/cmm [facility] Abs Monocyte 0.41 0.20 - 1.00 k/cmm [facility] Abs Eosinophil 0.13 0.00 - 0.60 k/cmm [facility] Abs Basophil 0.01 0.00 - 0.20 k/cmm [facility] Blood 11/20/2023 1:20 PM CDT 11/20/2023 2:24 PM CDT Narrative [facility] - 11/20/2023 2:35 PM CDT Bill to Corporate Kidney Acquisition ??Account [facility] [address] [place] [address] * VARICELLA-ZOSTER VIRUS (VZV) ANTIBODY, IGG (11/20/2023 1:20 PM CDT) VZV Ab, IgG Positive [facility] Comment:Positive results ind icate current or past exposure to Varicella-Zoster virus or prior immunization. Blood 11/20/2023 1:20 PM CDT 11/20/2023 2:24 PM CDT Narrative [facility] - 11/21/2023 9:03 AM CDT Bill to Corporate Kidney Acquisition ??Account [facility] Performing Organization Address City/[facility]/ZIP Co de Phone Number [facility] [address] [address] * MEASLES VIRUS (RUBEOLA) ANTIBODY, IGG (11/20/2023 1:20 PM CDT) Measles Ab, IgG Index 116.00 AU/ml [facility] Measles Ab, IgG Positive [facility] Comment:Positive results (>= 16.5) indicate current or past exposure to Measles virus or prior immunization. Blood 11/20/2023 1:20 PM CDT 11/20/2023 2:24 PM CDT Narrative [facility] - 11/21/2023 9:03 AM CDT Bill to Corporate Kidney Acquisition ??Account [facility] Performing Organization Address [facility] Co de Phone Number [facility] [address] [address] * RPR SYPHILIS SCREEN (11/20/2023 1:20 PM CDT) RPR Screen Non-Reactive Non-Reacti ve [facility] RPR Titer Not Reflexed [facility] Blood 11/20/2023 1:20 PM CDT 11/21/2023 10:14 AM CDT Narrative [facility] - 11/21/2023 11:32 AM CDT Bill to Corporate Kidney Acquisition ??Account [facility] [address] [address] * PROTHROMBIN (PT) & INR (11/20/2023 1:20 PM CDT) PT 11.6 9.0 - 12.5 sec [facility] INR 1.0 0.8 - 1.1 [facility] Comment: Warfarin Therapeutic Range: Standard Intensity: 2.0 - 3.0 High Intensity: 2.5 - 3.5 Blood 11/20/2023 1:20 PM CDT 11/20/2023 2:25 PM CDT Narrative [facility] - 11/20/2023 2:54 PM CDT Bill to Corporate Kidney Acquisition Account [facility] [address] [address] * PHOSPHORUS (11/20/2023 1:20 PM CDT) Pathologist [facility] Phosphorus 3.6 2.5 - 4.5 mg/dL [facility] Blood 11/20/2023 1:20 PM CDT 11/20/2023 2:24 PM CDT Narrative [facility] - 11/20/2023 2:49 PM CDT Bill to Corporate Kidney Acquisition ??Account [facility] [address] [address] * HEPATITIS C ANTIBODY (11/20/2023 1:20 PM CDT) Hep C Thee Nonreactive Nonreactive [facility] Comment:Performance characte ristics have not been established with this test on patients less than 10 years of age. Blood 11/20/2023 1:20 PM CDT 11/20/2023 2:24 PM CDT Narrative [facility] - 11/20/2023 3:19 PM CDT Bill to Corporate Kidney Acquisition ??Account [facility] Performing Organization Address City/[facility]/ZIP Co de Phone Number [facility] [address] [address] * HEPATITIS B SURFACE ANTIGEN (11/20/2023 1:20 PM CDT) HBV Surface Ag Nonreactive Nonreactive [facility] Comment: Testing performed at: [facility] [address] [address] Blood 11/20/2023 1:20 PM CDT 11/20/2023 2:24 PM CDT Narrative [facility] - 11/20/2023 3:19 PM CDT Bill to Corporate Kidney Acquisition ??Account [facility] Performing Organization Address [facility] Co de Phone Number [address] [address] * HEPATITIS B SURFACE ANTIBODY (11/20/2023 1:20 PM CDT) HBsAb Quant 83.42 mIU/ml [facility] Comment: The Hepatitis B Surface Antibody quantitation is greater than or equal to 12.00 mIU/mL. This patient has either had an antibody response to a hepatitis B vaccination, received a transfusion or has recovered from a hepatitis B infection. This patient should be considered immune to hepatitis B. HBsAb Interpretation Reactive [facility] Blood 11/20/2023 1:20 PM CDT 11/20/2023 2:24 PM CDT Narrative [facility] - 11/20/2023 3:19 PM CDT Bill to Corporate Kidney Acquisition ??Account [facility] Performing Organization Address City/[facility]/ZIP Co de Phone Number [facility] [address] [address] * GGT (11/20/2023 1:20 PM CDT) GGT 13 10 - 71 IU/L [facility] Blood 11/20/2023 1:20 PM CDT 11/20/2023 2:24 PM CDT Narrative [facility] - 11/20/2023 2:49 PM CDT Bill to Corporate Kidney Acquisition ??Account [facility] [address] [place] [address] * (ABNORMAL) EBV VCA IGG (11/20/2023 1:20 PM CDT) EBV Ab VCA IGG >750.0(H) 0.0 - 21.9 U/mL [facility] Comment: INTERPRETIVE INFORMATION: Parveen-Monsalve Virus Antibody to ?Viral Capsid Antigen, IgG ??17.9 U/mL or less.......Not Detected ??18.0-21.9 U/mL..........Indeterminate - Repeat testing in ?10-14 days may be helpful. ??22.0 U/mL or greater....Detected Performed By: [facility] [address] [place] [address] Senior Support Analyst: Salinas Prajapati MD, PhD CLIA Number: [id number] PARVEEN-MONSALVE VIRUS ANTIBODY TO VIRAL [employer] ANTIGEN IGG REFERENCE INTERVAL: EFFECTIVE 10/11/09 NEGATIVE: ??17.9 U/ML OR LESS EQUIVOCAL: 18.0 - 21.9 U/ML POSITIVE: ??22.0 U/ML OR GREATER Serum 11/20/2023 1:20 PM CDT 11/20/2023 2:24 PM CDT Narrative [facility] - 11/21/2023 7:21 PM CDT Bill to Corporate Kidney Acquisition ??Account [facility] Performing Organization Address City/[facility]/ZIP Co de Phone Number [facility] [address] [place] [address], * CALCIUM, TOTAL (11/20/2023 1:20 PM CDT) Calcium 8.6 8.6 - 10.0 mg/dL [facility] Blood 11/20/2023 1:20 PM CDT 11/20/2023 2:24 PM CDT Narrative [facility] - 11/20/2023 2:49 PM CDT Bill to Corporate Kidney Acquisition ??Account [facility] [address] [address] * BILIRUBIN, TOTAL (ONLY) (11/20/2023 1:20 PM CDT) Bili Total 0.5 <=1.2 mg/dL [facility] Blood 11/20/2023 1:20 PM CDT 11/20/2023 2:24 PM CDT Narrative [facility] - 11/20/2023 2:49 PM CDT Bill to Corporate Kidney Acquisition ??Account [facility] Performing Organization Address City/[facility]/ZIP Co de Phone Number [facility] [address] [address] * AST (SGOT) (11/20/2023 1:20 PM CDT) AST(SGOT) 15 5 - 40 IU/L [facility] Blood 11/20/2023 1:20 PM CDT 11/20/2023 2:24 PM CDT Narrative [facility] - 11/20/2023 2:49 PM CDT Bill to Corporate Kidney Acquisition ??Account [facility] Performing Organization Address City/[facility]/ZIP Co de Phone Number [facility] [address] [address] * PTT (APTT) (11/20/2023 1:20 PM CDT) APTT 33.4 25.0 - 37.0 sec [facility] Blood 11/20/2023 1:20 PM CDT 11/20/2023 2:25 PM CDT Narrative [facility] - 11/20/2023 2:54 PM CDT Bill to Corporate Kidney Acquisition Account [facility] [address] [address] * ALT (SGPT) (11/20/2023 1:20 PM CDT) Pathologist [facility] ALT (SGPT) 9 <=41 IU/L [facility] Blood 11/20/2023 1:20 PM CDT 11/20/2023 2:24 PM CDT Narrative [facility] - 11/20/2023 2:49 PM CDT Bill to Corporate Kidney Acquisition ??Account [facility] Performing Organization Address [facility] Co de Phone Number [facility] [address] [address] * ALKALINE PHOSPHATASE (11/20/2023 1:20 PM CDT) Alk Phos 118 40 - 129 IU/L [facility] Comment:No reference range e stablished for patients <18 years old. Blood 11/20/2023 1:20 PM CDT 11/20/2023 2:24 PM CDT Narrative [facility] - 11/20/2023 2:49 PM CDT Bill to Corporate Kidney Acquisition ??Account [facility] Performing Organization Address City/[facility]/ZIP Co de Phone Number [facility] [address] [address] * ALBUMIN (11/20/2023 1:20 PM CDT) Albumin 4.3 3.8 - 5.1 g/dL [facility] Blood 11/20/2023 1:20 PM CDT 11/20/2023 2:24 PM CDT Narrative [facility] - 11/20/2023 2:49 PM CDT Bill to Corporate Kidney Acquisition ??Account [facility] Performing Organization Address City/[facility]/ZIP Co de Phone Number [address] [address] * BLOOD TYPING-ABO/RH (11/20/2023 1:20 PM CDT) ABORHG O POS [facility] Blood 11/20/2023 1:20 PM CDT 11/20/2023 2:29 PM CDT Narrative [facility] - 11/20/2023 3:06 PM CDT Bill to Corporate Kidney Acquisition ??Account Neva [facility] TRANSFUSION SER [employer]ICES Performing Organization Address City/[facility]/ZIP Co de Phone Number [facility] [address] [address] * XR CHEST 2 VIEWS PA + [...] Stress Echocardiography Report Demographics Patient Name ? JOSE-MONTERROSO ?Height ? 67.01 Inches MACO Patient Number ?? [id number] ?Weight ? 205 Pounds Date of ?1980 ? BSA ?2.04 m^2 Age ?43 ? Tape Number: Gender ? Male ? Study Date ? 11/20/2023 10:51 AM Motor Vehicle Field Representative ?MA ? Ordering Provider ??CORBY CARUSO Referring ? Interpreting ? Hue Flynn MD Physician ? Physician ?[id number] Type of Study: Stress procedure: [facility] EXERCISE STRESS ECHO, Color Doppler, [...] HR: 176 bpm ? HR BP Product: 37500 % of predicted HR: 62 ? Max [...] EMIL Height 67.01 Inches MACO Patient Number [id number] Weight 205 Pounds Date of 1980 BSA 2.04 m^2 Age 43 Tape Number: Gender Male Study Date 11/20/2023 10:51 AM Motor Vehicle Field Representative PEDRO Ordering Provider CORBY CARUSO Referring Interpreting Hue Flynn MD Physician Physician [id number] Type of Study: Stress procedure: ECH EXERCISE [...] Predicted HR: 176 bpm HR BP Product: 39345 % of predicted HR: 62 Max Exercise: [...] Quiroz MD RAD ECHO Performing Organization Address [facility] Co de Phone Number [facility] * EKG ADULT (12-LEAD) (11/20/2023 10:46 AM CDT) 11/20/2023 10:4 6 AM CDT Impressions [facility] CVIS EKG ORDERS - 11/20/2023 10:46 AM CDT SINUS RHYTHM NORMAL ECG No previous ECG available for comparison. P-R Interval 174 ms QRS Interval 93 ms QT Interval 367 ms QTC Interval 409 ms P Phoenix 46 QRS Phoenix 61 T Wave Phoenix 68 Narrative Procedure Note Jean Liu MD - 11/20/2023 IMPRESSION SINUS RHYTHM NORMAL ECG No previous ECG available for comparison. P-R Interval 174 ms QRS Interval 93 ms QT Interval 367 ms QTC Interval 409 ms P Phoenix 46 QRS Phoenix 61 T Wave [place] 68 Blayne Quiroz MD EKG Performing Organization Address City/[facility] Co de Phone Number [facility] CVIS EKG ORDERS from Last 3 Months CORPORATE,KIDNEY ACQUISITION COST-CURRENT NEW Corporate Other 05/26/2020 Attn [facility] [address] [place] [address]
--- OUTSIDE RECORDS SUMMARY | 2023-12-14 21:12 | XMS_ITS ---
Author Name Krystian, Clinic Address [address] [place] [address] Phone [phone] Organization [facility] e, NA DOCUMENT DISCLAIMER Multiple document versions may exist, please be sure you review the latest version. The information in the [facility] Continuity of Care Document represents [...] 29, 2023 Frequency 4X Week [facility] CAR 172 Therapy Fluid [...]
--- OUTSIDE RECORDS SUMMARY | 2023-12-14 21:12 | XMS_ITS | Encounter Summary ---
Author Organization [facility] Address [address] [facility] [address] Phone Care Team Providers Care Supervisor Sanding Name Role Phone Unavailable Primary Care Provider Unavailabl e Reason for Referral * Consult/Test/Treat (Routine) - New Request Specialty Diagnoses / Procedures Referred By Amanda t Referred To Contact Infectious Diseases / INFECTIOUS DISEASES Diagnoses Pre-transplant evaluation for ESRD (end stage renal disease) Neva Carbajal MBBS [address] [facility] [address] [place] [address] Referral ID Status Reason Start Date Expiration Date V isits Requested Visits Authorized [id number] New Request 11/22/2023 11/22/2024 1 1 Encounter Details Date Type Department Care Team (Late Contact Info) Description 11/22/2023 Orders Only Transplant Program [address] [place] [address] [address] [place] [address] Chinyere Valencia, OLGA [facility] [address] [place] [address] Pre-transplant evaluation for ESRD (end stage renal [...] & Specialty Center Cardiology Clinic [address] [address] Denae Mckeon MD [address] [facility] [address] [place] [address] Scheduled Discharge Disposition: Discharged to home or self care 01/01/2024 2:00 PM MODEL PHOTOGRAPHERS' Office Visit Transplant Program 701 [facility] [address] [place] [address] Ning Leiva MD [address] [facility] [address] [place] [address] Scheduled Discharge Disposition: Discharged to home or [...]
--- OUTSIDE RECORDS SUMMARY | 2023-12-14 21:12 | XMS_ITS | Encounter Summary ---
Author Organization [facility] Address [address] [place] [address] Phone Care Team Providers Care Chaperone Name Role Phone Unavailable Primary Care Provider [...] [facility] [address] [place] [address] Denae Mckeon MD [address] [place] [address] Scheduled Discharge Disposition: Discharged to home or self care 01/01/2024 2:00 PM LINE CREW SUPERVISOR Office Visit Transplant Program [address] [place] [address] Ning Leiva MD [address] [place] [address] Scheduled Discharge Disposition: Discharged to home or self care documented as of this encounter Visit Diagnoses Not on filedocumented in this encounter
--- OUTSIDE RECORDS SUMMARY | 2023-12-14 21:12 | XMS_ITS | Referral Summary ---
Author Organization [facility] Address [address] [place] [address] Phone Care Team Providers Care Sql Programmer Name Role Phone Unavailable Primary Care Provider Unavailabl e Source Comments [employer] is fully rolled out on MXP4. Last update 07/31/08.Tagwhat Encounters Date Type Department Care Team Description 11/22/2023 Orders Only Transplant Program [address] [place] [address] Chinyere Valencia, OLGA LIDIA Pre-transplant evaluation for ESRD (end stage renal disease) (Primary Dx) 11/21/2023 Abstract Transplant Program [address] [place] [address] Chinyere Valencia RN 11/20/2023 9:57 AM CDT - 11/20/2023 11:59 PM CDT Hospital Encounter [facility] EKG [address] [place] [address] Blayne Quiroz MD Medical Research Tech, Ekg Discharge Disposition: Discharged to home or self care 11/20/2023 Travel 11/20/2023 2:30 PM CDT Nurse Only Transplant Program [address] [place] [address] Neva Carbajal MBBS Rn, [facility]-Pre Recipient Chronic kidney disease (Primary Dx) Discharge Disposition: Discharged to home or self care 11/20/2023 1:30 PM CDT Office Visit Transplant Program [address] [place] [address] Neva Carbajal MBBS Gjesvold, Donna E, RD, LD Encounter for pre-transplant evaluation for kidney transplant (Primary Dx) Discharge Disposition: Discharged to home or self care 11/20/2023 12:29 PM CDT - 11/20/2023 11:59 PM CDT Hospital Encounter [facility] XRAY [address] [place] [address] Blayne Quiroz MD Discharge Disposition: Discharged to home or self care 11/20/2023 12:08 PM CDT - 11/20/2023 11:59 PM CDT Hospital Encounter [facility] CT [address] [place] [address] Blayne Quiroz MD Discharge Disposition: Discharged to home or self care 11/20/2023 9:55 AM CDT - 11/20/2023 11:59 PM CDT Hospital Encounter [facility] Echo Lab [address] [place] [address] Blayne Quiroz MD Alvarado, Michelle, REPAIRER SHOE STICKS Jreel Pena, women's soccer coach Disposition: Discharged to home or self care 11/01/2023 Documentation Only Transplant Program [address] [place] [address] Williams Lindquist Transplant Band Teacher 10/03/2023 Documentation Only Transplant Program [address] [place] [address] Williams Lindquist Transplant Band Teacher 09/26/2023 Abstract Transplant Program [address] [place] [address] Williams Lindquist Transplant Band Teacher from Last 3 Months Allergies Active Allergy [...] disease, on chronic dialysis ([facility]) 10/13/2022 Anxiety 10/13/2022 HTN (hypertension) 09/15/2022 Diabetes mellitus ([facility]) 01/27/2002 Social History Tobacco Use Types Packs/Day [...] [facility] Cardiology Clinic [address] [address] eDnae Mckeon MD [address] [facility] [address] [place] [address] Scheduled Discharge Disposition: Discharged to home or self care 01/01/2024 2:00 PM SANITATION MANAGER Office Visit Transplant Program [address] [facility] [address] [place] [address] Ning Leiva MD [address] [facility] [address] [place], [place] [address] Scheduled Discharge Disposition: Discharged to home or [...] Donor, Chagas Screen Non Reactive Non Reactive [facility] Blood 11/20/2023 1:20 PM CDT 11/23/2023 11:23 AM CDT [facility] [employer] [address] [place] [address] * COCCIDIOIDES AB SCREEN WITH REFLEX (11/20/2023 1:20 PM CDT) Pathologist [facility] Coccidioides Antibody Negative Negative [facility] Comment: Repeat testing on a new sample in 2-3 weeks if clinically indicated. ADDITIONAL INFORMATION This test has been modified from the instrumental teacher's instructions. Its performance characteristics were determined by [facility] in a manner consistent with CLIA requirements. This test has not been cleared or approved by the U.S. Food and Drug Administration. Test Performed by: [facility] [address] [place] [address] Assembler Watch Train: Sawyer Alejandre Ph.D.; CLIA# [id number] Serum 11/20/2023 1:20 PM CDT 11/20/2023 2:[address] [facility] - 11/21/2023 8:16 PM CDT Bill to Corporate Kidney Acquisition Account [facility]a [facility] [address] [place] [address] * (ABNORMAL) QUANTIFERON-TB GOLD PLUS (11/20/2023 1:20 PM CDT) QuantiFERON TB Gold Plus Positive( A) Negative [facility] QFT TB 1 0.19 [facility] QFT TB 2 0.35 [facility] QFT TB MITOGEN 9.94 [facility] QFT NIL 0.06 [facility] Blood 11/20/2023 1:20 PM CDT 11/22/2023 7:34 AM CDT Narrative [facility] - 11/22/2023 10:36 AM CDT Bill to Corporate Kidney Acquisition ??Account [facility] Performing Organization Address City/[facility]/ZIP Co de Phone Number [facility] [address] [address] * HIV COMBO (11/20/2023 1:20 PM CDT) Pathologist [facility] HIV Antigen-Antibody Nonreactive Nonreactive [facility] Comment:Performance characte ristics have not been established with this test on patients less than 2 years of age. Blood 11/20/2023 1:20 PM CDT 11/20/2023 2:24 PM CDT Narrative [facility] - 11/20/2023 3:20 PM CDT Bill to Corporate Kidney Acquisition Account [facility] [address] [address] * HEPATITIS B CORE TOTAL THEE (11/20/2023 1:20 PM CDT) Pathologist [facility] HBV Core Total Thee Nonreactive Nonreactive [facility] Blood 11/20/2023 1:20 PM CDT 11/20/2023 3:41 PM CDT Narrative [facility] - 11/20/2023 4:11 PM CDT Bill to Corporate Kidney Acquisition Account [facility] [address] [address] * (ABNORMAL) CBC WITH PLTS/AUTO DIFF (11/20/2023 1:20 PM CDT) [facility] WBC 4.75 4.00 - 10.00 k/cmm [facility] RBC 2.54(L) 4.60 - 6.00 m/cmm [facility] Hgb 8.4(L) 13.1 - 17.5 g/dL [facility] Hematocrit 24.7(L) 40.0 - 51.0 % [facility] MCV 97.2 80.0 - 100.0 fL [facility] MCH 33.1(H) 25.0 - 32.0 pg [facility] MCHC 34.0 31.0 - 36.0 g/dL [facility] RDW 14.5 11.5 - 14.5 % [facility] Plt 92(L) 150 - 400 k/cmm [facility] MPV 11.6 6.5 - 12.5 fL [facility] Automated Abs Neutrophil 3.10 1.70 - 6.50 k/cmm [facility] Comment:Preliminary ANC, Fin al Result to Follow Abs Immature Granulocyte 0.01 0.00 - 0.09 k/cmm [facility] Comment:The Immature Granulo cyte Absolute count contains metamyelocytes and myelocytes. Abs Neutrophil 3.10 1.70 - 6.50 k/cmm [facility] Abs Lymphocyte 1.09 0.80 - 4.00 k/cmm [facility] Abs Monocyte 0.41 0.20 - 1.00 k/cmm [facility] Abs Eosinophil 0.13 0.00 - 0.60 k/cmm [facility] Abs Basophil 0.01 0.00 - 0.20 k/cmm [facility] Blood 11/20/2023 1:20 PM CDT 11/20/2023 2:24 PM CDT Narrative [facility] - 11/20/2023 2:35 PM CDT Bill to Corporate Kidney Acquisition ??Account [facility] Performing Organization Address City/[facility]/ZIP Co de Phone Number [facility] [address] [address] * VARICELLA-ZOSTER VIRUS (VZV) ANTIBODY, IGG (11/20/2023 1:20 PM CDT) VZV Ab, IgG Positive [facility] Comment:Positive results ind icate current or past exposure to Varicella-Zoster virus or prior immunization. Blood 11/20/2023 1:20 PM CDT 11/20/2023 2:24 PM CDT Narrative [facility] - 11/21/2023 9:03 AM CDT Bill to Corporate Kidney Acquisition ??Account [facility] Performing Organization Address [facility] Co de Phone Number [facility] [address] [address] * MEASLES VIRUS (RUBEOLA) ANTIBODY, IGG (11/20/2023 1:20 PM CDT) Measles Ab, IgG Index 116.00 AU/ml [facility] Measles Ab, IgG Positive [facility] Comment:Positive results (>= 16.5) indicate current or past exposure to Measles virus or prior immunization. Blood 11/20/2023 1:20 PM CDT 11/20/2023 2:24 PM CDT Narrative [facility] - 11/21/2023 9:03 AM CDT Bill to Corporate Kidney Acquisition ??Account [facility] [address] [address] * RPR SYPHILIS SCREEN (11/20/2023 1:20 PM CDT) RPR Screen Non-Reactive Non-Reacti ve [facility] RPR Titer Not Reflexed [facility] Blood 11/20/2023 1:20 PM CDT 11/21/2023 10:14 AM CDT Narrative [facility] - 11/21/2023 11:32 AM CDT Bill to Corporate Kidney Acquisition ??Account [facility] [address] [address] * PROTHROMBIN (PT) & INR (11/20/2023 1:20 PM CDT) PT 11.6 9.0 - 12.5 sec [facility] INR 1.0 0.8 - 1.1 [facility] Comment: Warfarin Therapeutic Range: Standard Intensity: 2.0 - 3.0 High Intensity: 2.5 - 3.5 Blood 11/20/2023 1:20 PM CDT 11/20/2023 2:25 PM CDT Narrative [facility] - 11/20/2023 2:54 PM CDT Bill to Corporate Kidney Acquisition Account [facility] Performing Organization Address [facility] Co de Phone Number [facility] [address] [address] * PHOSPHORUS (11/20/2023 1:20 PM CDT) Phosphorus 3.6 2.5 - 4.5 mg/dL [facility] Blood 11/20/2023 1:20 PM CDT 11/20/2023 2:24 PM CDT Narrative [facility] - 11/20/2023 2:49 PM CDT Bill to Corporate Kidney Acquisition ??Account [facility] Performing Organization Address City/[facility]/ZIP Co de Phone Number [facility] [address] [address] * HEPATITIS C ANTIBODY (11/20/2023 1:20 PM CDT) Hep C Thee Nonreactive Nonreactive [facility] Comment:Performance characte ristics have not been established with this test on patients less than 10 years of age. Blood 11/20/2023 1:20 PM CDT 11/20/2023 2:24 PM CDT Narrative [facility] - 11/20/2023 3:19 PM CDT Bill to Corporate Kidney Acquisition ??Account [facility] Performing Organization Address City/[facility]/ZIP Co de Phone Number [facility] [address] [address] * HEPATITIS B SURFACE ANTIGEN (11/20/2023 1:20 PM CDT) HBV Surface Ag Nonreactive Nonreactive [facility] Comment: Testing performed at: [facility] [address] [address] Blood 11/20/2023 1:20 PM CDT 11/20/2023 2:24 PM CDT Narrative [facility] - 11/20/2023 3:19 PM CDT Bill to Corporate Kidney Acquisition ??Account [facility] Performing Organization Address City/[facility]/ZIP Co de Phone Number [address] [address] * HEPATITIS B SURFACE ANTIBODY (11/20/2023 1:20 PM CDT) HBsAb Quant 83.42 mIU/ml [facility] Comment: The Hepatitis B Surface Antibody quantitation is greater than or equal to 12.00 mIU/mL. This patient has either had an antibody response to a hepatitis B vaccination, received a transfusion or has recovered from a hepatitis B infection. This patient should be considered immune to hepatitis B. HBsAb Interpretation Reactive [facility] Blood 11/20/2023 1:20 PM CDT 11/20/2023 2:24 PM CDT Narrative [facility] - 11/20/2023 3:19 PM CDT Bill to Corporate Kidney Acquisition ??Account Nevauziel Jangmeenu [facility] Performing Organization Address City/[facility] Co de Phone Number [facility] [address] [address] * GGT (11/20/2023 1:20 PM CDT) [facility] GGT 13 10 - 71 IU/L [facility] Blood 11/20/2023 1:20 PM CDT 11/20/2023 2:24 PM CDT Narrative [facility] - 11/20/2023 2:49 PM CDT Bill to Corporate Kidney Acquisition ??Account Nevauziel Carbajal [facility] Performing Organization Address [facility] de Phone Number [facility] [address] [address] * (ABNORMAL) EBV VCA IGG (11/20/2023 1:20 PM CDT) [facility] EBV Ab VCA IGG >750.0(H) 0.0 - 21.9 U/mL [employer] Comment: INTERPRETIVE INFORMATION: Parveen-Monsalve Virus Antibody to ?Viral Capsid Antigen, IgG ??17.9 U/mL or less.......Not Detected ??18.0-21.9 U/mL..........Indeterminate - Repeat testing in ?10-14 days may be helpful. ??22.0 U/mL or greater....Detected Performed By: [employer] [address] [place] [id number] Dolly Driver: Salinas Prajapati MD, PhD CLIA Number: [id number] PARVEEN-MONSALVE VIRUS ANTIBODY TO VIRAL CAPSID ANTIGEN IGG REFERENCE INTERVAL: EFFECTIVE 10/11/09 NEGATIVE: ??17.9 U/ML OR LESS EQUIVOCAL: 18.0 - 21.9 U/ML POSITIVE: ??22.0 U/ML OR GREATER Serum 11/20/2023 1:20 PM CDT 11/20/2023 2:24 PM CDT Narrative [facility] - 11/21/2023 7:21 PM CDT Bill to Corporate Kidney Acquisition ??Account [facility] [employer] [address] [place] [address], * CALCIUM, TOTAL (11/20/2023 1:20 PM CDT) Calcium 8.6 8.6 - 10.0 mg/dL [facility] Blood 11/20/2023 1:20 PM CDT 11/20/2023 2:24 PM CDT Narrative [facility] - 11/20/2023 2:49 PM CDT Bill to Corporate Kidney Acquisition ??Account [facility] Performing Organization Address City/[facility]/ZIP Co de Phone Number [facility] [address] [address] * BILIRUBIN, TOTAL (ONLY) (11/20/2023 1:20 PM CDT) Bili Total 0.5 <=1.2 mg/dL [facility] Blood 11/20/2023 1:20 PM CDT 11/20/2023 2:24 PM CDT Narrative [facility] - 11/20/2023 2:49 PM CDT Bill to Corporate Kidney Acquisition ??Account [facility] Performing Organization Address City/[facility]/ZIP Co de Phone Number [facility] [address] [address] * AST (SGOT) (11/20/2023 1:20 PM CDT) AST(SGOT) 15 5 - 40 IU/L [facility] Blood 11/20/2023 1:20 PM CDT 11/20/2023 2:24 PM CDT Narrative [facility] - 11/20/2023 2:49 PM CDT Bill to Corporate Kidney Acquisition ??Account [facility] [address] [address] * PTT (APTT) (11/20/2023 1:20 PM CDT) APTT 33.4 25.0 - 37.0 sec [facility] Blood 11/20/2023 1:20 PM CDT 11/20/2023 2:25 PM CDT Narrative [facility] - 11/20/2023 2:54 PM CDT Bill to Corporate Kidney Acquisition Account [facility] Performing Organization Address City/[facility]/ZIP Co de Phone Number [facility] [address] [address] * ALT (SGPT) (11/20/2023 1:20 PM CDT) ALT (SGPT) 9 <=41 IU/L [facility] Blood 11/20/2023 1:20 PM CDT 11/20/2023 2:24 PM CDT Narrative [facility] - 11/20/2023 2:49 PM CDT Bill to Corporate Kidney Acquisition ??Account [facility] Performing Organization Address City/[facility]/ZIP Co de Phone Number [facility] [address] [address] * ALKALINE PHOSPHATASE (11/20/2023 1:20 PM CDT) Alk Phos 118 40 - 129 IU/L [facility] Comment:No reference range e stablished for patients <18 years old. Blood 11/20/2023 1:20 PM CDT 11/20/2023 2:24 PM CDT Narrative [facility] - 11/20/2023 2:49 PM CDT Bill to Corporate Kidney Acquisition ??Account Neva Carbajal [facility] Performing Organization Address City/[facility]/ZIP Co de Phone Number [facility] [address] [address] * ALBUMIN (11/20/2023 1:20 PM CDT) Albumin 4.3 3.8 - 5.1 g/dL [facility] Blood 11/20/2023 1:20 PM CDT 11/20/2023 2:24 PM CDT Narrative [facility] - 11/20/2023 2:49 PM CDT Bill to Corporate Kidney Acquisition ??Account [facility] Performing Organization Address City/[facility] Co de Phone Number [facility] [address] [address] * BLOOD TYPING-ABO/RH (11/20/2023 1:20 PM CDT) ABORHG O POS [facility] Blood 11/20/2023 1:20 PM CDT 11/20/2023 2:29 PM CDT Narrative [facility] - 11/20/2023 3:06 PM CDT Bill to Corporate Kidney Acquisition ??Account Neva Carbajal [facility] TRANSFUSION SER VICES Performing Organization Address [facility] Co de Phone Number [facility] [address] [address] * XR CHEST 2 VIEWS PA + [...] Blayne Quiroz MD RAD CT BODY * [facility] EXERCISE STRESS ECHO COMPLETE WITH [...] ? 67.01 Inches MACO Patient Number ?? [id number] ?Weight ? 205 Pounds Date of ?1980 ? BSA ?2.04 m^2 Age ?43 ? Tape Number: Gender ? Male ? Study Date ? 11/20/2023 10:51 AM Sales And Operations Trainee ?MA ? Ordering Provider ??CORBY CARUSO Referring ? Interpreting ? Hue Flynn MD Physician ? Physician ?[id number] Type of Study: Stress procedure: ECH EXERCISE [...] HR: 176 bpm ? HR BP Product: 09600 % of predicted HR: 62 ? Max [...] EMIL Height 67.01 Inches MACO Patient Number [id number] Weight 205 Pounds Date of 1980 BSA 2.04 m^2 Age 43 Tape Number: Gender Male Study Date 11/20/2023 10:51 AM Sales And Operations Trainee MA Ordering Provider CORBY CARUSO Referring Interpreting Hue Flynn MD Physician Physician [id number] Type of Study: Stress procedure: ECH EXERCISE [...] Predicted HR: 176 bpm HR BP Product: 74832 % of predicted HR: 62 Max Exercise: [...] improved withstress. Blayne Quiroz MD RAD ECHO [facility] * EKG ADULT (12-LEAD) (11/20/2023 10:46 AM CDT) 11/20/2023 10:4 6 AM CDT Impressions [facility] CVIS EKG ORDERS - 11/20/2023 10:46 AM CDT SINUS RHYTHM NORMAL ECG No previous ECG available for comparison. P-R Interval 174 ms QRS Interval 93 ms QT Interval 367 ms QTC Interval 409 ms P Page 46 QRS Page 61 T Wave Page 68 Narrative Procedure Note Jean Liu MD - 11/20/2023 IMPRESSION SINUS RHYTHM NORMAL ECG No previous ECG available for comparison. P-R Interval 174 ms QRS Interval 93 ms QT Interval 367 ms QTC Interval 409 ms P Page 46 QRS Page 61 T Wave Page 68 Blayne Quiroz MD EKG [facility] EKG ORDERS from Last 3 Months CORPORATE,KIDNEY ACQUISITION COST-CURRENT NEW Corporate Other 05/26/2020 Attn [facility] [address] [place] [address]
--- OUTSIDE RECORDS SUMMARY | 2023-12-14 21:12 | XMS_ITS | Encounter Summary ---
Author Organization [facility] Address [address] [facility] [place] [address] Phone Care Team Providers Care Tie Presser Name Role Phone Unavailable Primary Care Provider Unavailabl e Reason for Visit * Prior Authorization (Routine) - Closed Specialty Diagnoses / Procedures Referred By Contac t Referred To Contact CARDIOLOGY ECHO LAB Diagnoses Encounter for other preprocedural examination [facility] Echo and EKG. Diagnoses Pre-Transplant Evaluation For Esrd (End Stage Renal Disease) [Z01.818] Procedures [place] ECHO TTHRC R-T 2D W/WO M-MODE REST&STRS CONT ECG [place] ECG ROUTINE ECG W/LEAST 12 LDS W/I&R [place] ECG ROUTINE ECG W/LEAST 12 LDS TRCG ONLY W/O I&R Echo Lab [address] [facility] [address] [place] [address] Referral ID Status Reason Start Date Expiration Date Visits Re quested Visits Authorized [id number] Closed 2 2 Encounter Details Date Type Department Care Team (Latest Contact Info) Description 11/20/2023 9:57 AM CDT - 11/20/2023 11:59 PM CDT [facility] [address] [facility] [address] [place], [place] [address] Blayne Quiroz MD 701 [facility] [address] [place] [address] Core Analysis Operator, Ekg 701 [place] [address] Discharge Disposition: Discharged to home or self [...] & Specialty Center Cardiology Clinic [address] [place] [address] Denae Mckeon MD [address] [place], [place] [address] Scheduled Discharge Disposition: Discharged to home or self care 01/01/2024 2:00 PM MAINTENANCE ADVISOR Office Visit Transplant Program [address] [place] [address] Ning Leiva MD [address] [address] Scheduled Discharge Disposition: Discharged to home or self care documented as of this encounter Procedures Procedure Name Priority Date/Time Associated Diagnosis Comments EKG ADULT (12-LEAD) Routine 11/20/2023 1 0:46 AM CDT Pre-transplant evaluation for ESRD (end stage renal disease) documented in this encounter Results * EKG ADULT (12-LEAD) (11/20/2023 10:46 AM CDT) 11/20/2023 10:4 6 AM CDT Impressions [facility] [place] ORDERS - 11/20/2023 10:46 AM CDT SINUS RHYTHM NORMAL ECG No previous ECG available for comparison. P-R Interval 174 ms QRS Interval 93 ms QT Interval 367 ms QTC Interval 409 ms P [place] 46 QRS [place] 61 T Wave [place] 68 Narrative Procedure Note Jean Liu MD - 11/20/2023 IMPRESSION SINUS RHYTHM NORMAL ECG No previous ECG available for comparison. P-R Interval 174 ms QRS Interval 93 ms QT Interval 367 ms QTC Interval 409 ms P [place] 46 QRS [place] 61 T Wave [place] 68 Blayne Quiroz MD EKG [facility] [place] ORDERS documented in this encounter Visit Diagnoses Diagnosis Pre-transplant evaluation for ESRD (end stage renal disease) Other specified pre-operative examination documented in this encounter
--- OUTSIDE RECORDS SUMMARY | 2023-12-14 21:12 | XMS_ITS | Encounter Summary ---
Author Organization [facility] Address [address] [place] [address] Phone Care Team Providers Care Blister Pack Operator Name Role Phone Unavailable Primary Care Provider Unavailabl e Encounter Details Date Type Department Care Team (Late st Contact Info) Description 11/21/2023 Abstract Transplant Program [address] [place] [address] [address] [place] [address] Chinyere Valencia RN [facility] [address] [place] [address] Social History Tobacco Use Types Packs/Day Years [...] & Specialty Center Cardiology Clinic [address] [address] Denae Mckeon MD [address] [place] [address] [address] [place] [address] Scheduled Discharge Disposition: Discharged to home or self care 01/01/2024 2:00 PM HISTOLOGIST TECHNOLOGIST Office Visit Transplant Program [address] [place] [address] [address] [place] [address] Ning Leiva MD 701 [facility] [address] [place] [address] Scheduled Discharge Disposition: Discharged to home or self care documented as of this encounter Visit Diagnoses Not on filedocumented in this encounter
--- OUTSIDE RECORDS SUMMARY | 2023-12-14 21:13 | XMS_ITS | Encounter Summary ---
Author Organization [facility] Address [address] [place] [address] Phone Care Team Providers Care Insole And Heel Stiffener Name Role Phone Unavailable Primary Care Provider Unavailabl e Encounter Details Date Type Department Care Team (Late Contact Info) Description 11/01/2023 Documentation Only Transplant Program [address] [place] [address] Williams Lindquist Transplant Employee Development Manager 701 [place], [place] [id number] Social History Tobacco Use Types Packs/Day Years Used Date Smoking Tobacco: Never Assessed Sex and Gender Information Value Date Recorded Sex Assigned at Not on file Gender Identity Not on file Sexual Orientation Not on file documented as of this encounter Progress Notes * Williams Lindquist Transplant Employee Development Manager - 11/01/2023 1:48 PM CDT D/A: The following secure email was sent to Rin, patient's social worker masters. Lopez Gar, Sorry to bother you, but I'm wondering if you have received the [facility] approved renewed ESRD Care Planon Maco Stein? He has transplant evaluation appointments scheduled and I'm afraid we'll have to cancel them if we don't have a current Care Plan in place. Thanks for your help, Williams Hui: Response pending. Brenna Lindquist, Transplant Employee Development Manager, October 13:49 documented in this encounter Plan of Treatment Upcoming Encounters Date Type Department Care Team (Late st Contact Info) Description 12/18/2023 11:00 AM CDT Office Visit Clinic & Specialty Center Cardiology Clinic [address] [place] [address] Denae Mckeon MD [address] [place] [address] Scheduled Discharge Disposition: Discharged to home or self care 01/01/2024 2:00 PM SOUP MIXER Office Visit Transplant Program 701 [facility] [address] [place] [address] Ning Leiva MD [address] [place] [address] [place], [place] [address] Scheduled Discharge Disposition: Discharged to home or self care documented as of this encounter Visit Diagnoses Not on filedocumented in this encounter
--- OUTSIDE RECORDS SUMMARY | 2023-12-14 21:13 | XMS_ITS | Encounter Summary ---
Author Organization [facility] Address [address] [facility] [address] [place] [address] Care Team Providers Care Industrial Refrigeration Mechanic Name Role Phone No, Pcp Primary Care Provider [phone] Encounter Details Date Type Department Care Team (Late st Contact Info) Description 11/22/2023 Orders Only [facility] [address] [place] [address] Julito Cortez MD [address] [place] [address] Social History Tobacco Use Types [...] (11/22/2023) Potassium 5.4(H) 3.5 - 5.1 mEq/L [facility] 11/22/2023 11/23/2023 7:1 8 AM CDT Narrative [facility] - 11/23/2023 Unless otherwise specified, test(s) performed at: [facility], [address] [place] [address], [place] [address] LENS CLEANER: Gurdeep Ricardo M.D., Ph.D For any questions, please call customer service at FREQUENCY:OTHER Resulting Agency Comment Specimen source: Serum us Julito Cortez MD LAB BLOOD ORDERABLES Final Resul t [facility] See order comments or contact performing lab Unknown, [place] documented in this encounter Visit Diagnoses Not on filedocumented in this encounter Care Teams Industrial Refrigeration Mechanic Relationship Specialty Start Date End Date No, Pcp PCP - General Internal Medicine 09/10/23 documented as of this encounter
--- OUTSIDE RECORDS SUMMARY | 2023-12-14 21:13 | XMS_ITS | Encounter Summary ---
Author Organization [facility] Address [address] [place] [address] Phone Care Team Providers Care Flatwork Finisher Name Role Phone Unavailable Primary Care Provider Unavailabl e Encounter Details Date Type Department Care Team (Latest Contact Info) Description 11/20/2023 12:29 PM CDT - 11/20/2023 11:59 PM CDT Hospital Encounter [facility] [place]RAY 701 [place], [place] [id number] Blayne Quiroz MD [address] [id number] Discharge Disposition: Discharged to home or self [...] & Specialty Center Cardiology Clinic [address] [address] Denae Mckeon MD 701 [facility] [address] [place] [address] Scheduled Discharge Disposition: Discharged to home or self care 01/01/2024 2:00 PM WORKFORCE MANAGEMENT ANALYST Office Visit Transplant Program 701 [facility] [address] [place] [address] Ning Leiva MD 701 [facility] [address] [place] [address] Scheduled Discharge Disposition: Discharged to home or [...]
--- OUTSIDE RECORDS SUMMARY | 2023-12-14 21:13 | XMS_ITS | Encounter Summary ---
Author Organization [facility] Address [address] [facility] [place] [address] Phone Care Team Providers Care Broadcast Designer Name Role Phone Unavailable Primary Care Provider Unavailabl e Reason for Visit * Reason Comments Pre Kidney Transplant Evaluation Encounter Details Date Type Department Care Team (Late st Contact Info) Description 11/20/2023 2:30 PM CDT Nurse Only Transplant Program [address] [facility] [address] [place], [place] [phone] Neva Carbajal MBBS 701 [facility] [address] [place], [place] [id number] RnCali-Pre Recipient Chronic kidney disease (Primary Dx) [...] and have labs drawn. Also meeting with commodity lead. Discussed when labs results would be returned. Chinyere Valencia RN, 11/20/2023 2:25 PM documented in this encounter Miscellaneous Notes * Transplant Care Plan - Chinyere Valencia RN - 11/20/2023 2:30 PM CDT Transplant-Recipient Plan Transplant-Pre Care Plan Maco Stein Recipient Care Plan Pretransplant I) Referral received by director financial systems from Nephrologists, dialysis unit or patient. II) Patient scheduled to attend information session. III) Patient attends information session which includes Autographer, Transplant Dog Or Horse Racing Official, Temporary Office Assistant, Living Donor Coordinator, Transplant Surgeon, Pan Operator, and Repair Mechanic Discussed the following with potential transplant candidate and their family members: IV) A) Advantages and disadvantages of transplant V) B) Possible complications post transplant ) C)Medications and their side effects VII) D) Hospitalization and frequency of clinic visits post-op VIII) E) Requirement that all out-of-town patients remain in [facility] for at least 2 weeks post-op, [...] waitlisted, patient's name is placed on the [facility] kidney donor waitlist. Patient notification letter sent and if patient is predialysis arrangements are made for ALA levels to be drawn 2. Patient's Repair Mechanic notified 3. Patient's dialysis unit notified and [...] 2. Patient notification letter sent. 3. Patient???s Repair Mechanic notified 4. Patient???s dialysis unit notified Transplant-Recipient Plan Transplant-Pre Care Plan Maco [facility] WAITLIST MANAGEMENT I) Monthly Updates a. Brief summary of patient's transplant status sent out by the Transplant Clinic monthly to the dialysis unit or if predialysis to the Repair Mechanic. II) Semiannual Check Calls Patient contacted by phone by transplant steam fitter to verify current: contact information, insurance, health [...] [facility] [address] [address] Denae Mckeon MD [address] [place], [place] [phone] Scheduled Discharge Disposition: Discharged to home or self care 01/01/2024 2:00 PM LAMINATOR PRINTED CIRCUIT BOARDS Office Visit Transplant Program [address] [place], [place] [address] Ning Leiva MD 701 [facility] [address] [place] [address] Scheduled Discharge Disposition: Discharged to home or [...] Donor, Chagas Screen Non Reactive Non Reactive [employer] Blood 11/20/2023 1:20 PM CDT 11/23/2023 11:23 AM CDT [facility]a [facility] [employer] [address] [place] [address] * COCCIDIOIDES AB SCREEN WITH REFLEX (11/20/2023 1:20 PM CDT) Coccidioides Antibody Negative Negative [facility] Comment: Repeat testing on a new sample in 2-3 weeks if clinically indicated. ADDITIONAL INFORMATION This test has been modified from the configuration management consultant's instructions. Its performance characteristics were determined by [facility] in a manner consistent with CLIA requirements. This test has not been cleared or approved by the U.S. Food and Drug Administration. Test Performed by: [facility] - [address] [address] Maintenance Shop Laborer: Sawyer Alejandre Ph.D.; CLIA# [id number] Serum 11/20/2023 1:20 PM CDT 11/20/2023 2:24 PM CDT Narrative [facility] - 11/21/2023 8:16 PM CDT Bill to Corporate Kidney Acquisition Account Neva Carbajal [facility] [address] [place] [address] * (ABNORMAL) QUANTIFERON-TB GOLD PLUS (11/20/2023 1:20 PM CDT) QuantiFERON TB Gold Plus Positive( A) Negative [facility] QFT TB 1 0.19 [facility] QFT TB 2 0.35 [facility] QFT TB MITOGEN 9.94 [facility] QFT NIL 0.06 [facility] Blood 11/20/2023 1:20 PM CDT 11/22/2023 7:34 AM CDT Narrative [facility] - 11/22/2023 10:36 AM CDT Bill to Corporate Kidney Acquisition ??Account [facility] [address] [address] * HEPATITIS B CORE TOTAL BHAKTI (11/20/2023 1:20 PM CDT) HBV Core Total Bhakti Nonreactive Nonreactive [facility] Blood 11/20/2023 1:20 PM CDT 11/20/2023 3:41 PM CDT Narrative [facility] - 11/20/2023 4:11 PM CDT Bill to Corporate Kidney Acquisition Account [facility] [address] [address] * MEASLES VIRUS (RUBEOLA) ANTIBODY, IGG (11/20/2023 1:20 PM CDT) Measles Ab, IgG Index 116.00 AU/ml [facility] Measles Ab, IgG Positive [facility] Comment:Positive results (>= 16.5) indicate current or past exposure to Measles virus or prior immunization. Blood 11/20/2023 1:20 PM CDT 11/20/2023 2:24 PM CDT Narrative [facility] - 11/21/2023 9:03 AM CDT Bill to Corporate Kidney Acquisition ??Account [facility] Performing Organization Address City/[facility]/ZIP Co de Phone Number [facility] [address] [address] * RPR SYPHILIS SCREEN (11/20/2023 1:20 PM CDT) RPR Screen Non-Reactive Non-Reacti ve [facility] RPR Titer Not Reflexed [facility] Blood 11/20/2023 1:20 PM CDT 11/21/2023 10:14 AM CDT Narrative [facility] - 11/21/2023 11:32 AM CDT Bill to Corporate Kidney Acquisition ??Account [facility] [address] [address] * (ABNORMAL) EBV VCA IGG (11/20/2023 1:20 PM CDT) EBV Ab VCA IGG >750.0(H) 0.0 - 21.9 U/mL [employer] Comment: INTERPRETIVE INFORMATION: Parveen-Monsalve Virus Antibody to ?Viral Capsid Antigen, IgG ??17.9 U/mL or less.......Not Detected ??18.0-21.9 U/mL..........Indeterminate - Repeat testing in ?10-14 days may be helpful. ??22.0 U/mL or greater....Detected Performed By: [facility] [address] [place] [address] Asbestos Remover: Salinas Prajapati MD, PhD CLIA Number: [id number] PARVEEN-MONSALVE VIRUS ANTIBODY TO VIRAL CAPSID ANTIGEN IGG REFERENCE INTERVAL: EFFECTIVE 10/11/09 NEGATIVE: ??17.9 U/ML OR LESS EQUIVOCAL: 18.0 - 21.9 U/ML POSITIVE: ??22.0 U/ML OR GREATER Serum 11/20/2023 1:20 PM CDT 11/20/2023 2:24 PM CDT Narrative [facility] - 11/21/2023 7:21 PM CDT Bill to Corporate Kidney Acquisition ??Account [facility] [employer] [address] [place] [address], * VARICELLA-ZOSTER VIRUS (VZV) ANTIBODY, IGG (11/20/2023 1:20 PM CDT) Pathologist [facility] VZV Ab, IgG Positive [facility] Comment:Positive results ind icate current or past exposure to Varicella-Zoster virus or prior immunization. Blood 11/20/2023 1:20 PM CDT 11/20/2023 2:24 PM CDT Narrative [facility] - 11/21/2023 9:03 AM CDT Bill to Corporate Kidney Acquisition ??Account [facility]a [facility] [address] [address] * PHOSPHORUS (11/20/2023 1:20 PM CDT) Phosphorus 3.6 2.5 - 4.5 mg/dL [facility] Blood 11/20/2023 1:20 PM CDT 11/20/2023 2:24 PM CDT Narrative [facility] - 11/20/2023 2:49 PM CDT Bill to Corporate Kidney Acquisition ??Account Neva [facility] Performing Organization Address [facility]/ZIP Co de Phone Number [facility] [address] [address] * HIV COMBO (11/20/2023 1:20 PM CDT) HIV Antigen-Antibody Nonreactive Nonreactive [facility] Comment:Performance characte ristics have not been established with this test on patients less than 2 years of age. Blood 11/20/2023 1:20 PM CDT 11/20/2023 2:24 PM CDT Narrative [facility] - 11/20/2023 3:20 PM CDT Bill to Corporate Kidney Acquisition Account [facility]a [facility] Performing Organization Address City/[facility]/ZIP Co de Phone Number [facility] [address] [address] * HEPATITIS C ANTIBODY (11/20/2023 1:20 PM CDT) Hep C Bhakti Nonreactive Nonreactive [facility] Comment:Performance characte ristics have not been established with this test on patients less than 10 years of age. Blood 11/20/2023 1:20 PM CDT 11/20/2023 2:24 PM CDT Narrative [facility] - 11/20/2023 3:19 PM CDT Bill to Corporate Kidney Acquisition ??Account [facility] [address] [address] * HEPATITIS B SURFACE ANTIGEN (11/20/2023 1:20 PM CDT) HBV Surface Ag Nonreactive Nonreactive [facility] Comment: Testing performed at: [facility] [address] [address] Blood 11/20/2023 1:20 PM CDT 11/20/2023 2:24 PM CDT Narrative [facility] - 11/20/2023 3:19 PM CDT Bill to Corporate Kidney Acquisition ??Account [facility] Performing Organization Address [facility] Co de Phone Number [facility] [address] [address] * HEPATITIS B SURFACE ANTIBODY (11/20/2023 1:20 PM CDT) HBsAb Quant 83.42 mIU/ml [facility] Comment: The Hepatitis B Surface Antibody quantitation is greater than or equal to 12.00 mIU/mL. This patient has either had an antibody response to a hepatitis B vaccination, received a transfusion or has recovered from a hepatitis B infection. This patient should be considered immune to hepatitis B. HBsAb Interpretation Reactive [facility] Blood 11/20/2023 1:20 PM CDT 11/20/2023 2:24 PM CDT Narrative [facility] - 11/20/2023 3:19 PM CDT Bill to Corporate Kidney Acquisition ??Account [facility] Performing Organization Address City/[facility]/ZIP Co de Phone Number [facility] [address] [address] * PTT (APTT) (11/20/2023 1:20 PM CDT) APTT 33.4 25.0 - 37.0 sec [facility] Blood 11/20/2023 1:20 PM CDT 11/20/2023 2:25 PM CDT Narrative [facility] - 11/20/2023 2:54 PM CDT Bill to Corporate Kidney Acquisition Account [facility]a [facility] [address] [address] * PROTHROMBIN (PT) & INR (11/20/2023 1:20 PM CDT) PT 11.6 9.0 - 12.5 sec [facility] INR 1.0 0.8 - 1.1 [facility] Comment: Warfarin Therapeutic Range: Standard Intensity: 2.0 - 3.0 High Intensity: 2.5 - 3.5 Blood 11/20/2023 1:20 PM CDT 11/20/2023 2:25 PM CDT Narrative [facility] - 11/20/2023 2:54 PM CDT Bill to Corporate Kidney Acquisition Account [facility]a [facility] Performing Organization Address [facility] Co de Phone Number [facility] [address] [address] * GGT (11/20/2023 1:20 PM CDT) GGT 13 10 - 71 IU/L [facility] Blood 11/20/2023 1:20 PM CDT 11/20/2023 2:24 PM CDT Narrative [facility] - 11/20/2023 2:49 PM CDT Bill to Corporate Kidney Acquisition ??Account [facility]a [facility] Performing Organization Address City/[facility]/ZIP Co de Phone Number [facility] [address] [address] * (ABNORMAL) CBC WITH PLTS/AUTO DIFF (11/20/2023 1:20 PM CDT) WBC 4.75 4.00 - 10.00 k/cmm [facility] RBC 2.54(L) 4.60 - 6.00 m/cmm [facility] Hgb 8.4(L) 13.1 - 17.5 g/dL [facility] Hematocrit 24.7(L) 40.0 - 51.0 % [facility] MCV 97.2 80.0 - 100.0 fL [facility] MCH 33.1(H) 25.0 - 32.0 pg [facility] MCHC 34.0 31.0 - 36.0 g/dL [facility] RDW 14.5 11.5 - 14.5 % [facility] Plt 92(L) 150 - 400 k/cmm [facility] MPV 11.6 6.5 - 12.5 fL [facility] Automated Abs Neutrophil 3.10 1.70 - 6.50 k/cmm [facility] Comment:Preliminary ANC, Fin al Result to Follow Abs Immature Granulocyte 0.01 0.00 - 0.09 k/cmm [facility] Comment:The Immature Granulo cyte Absolute count contains metamyelocytes and myelocytes. Abs Neutrophil 3.10 1.70 - 6.50 k/cmm [facility] Abs Lymphocyte 1.09 0.80 - 4.00 k/cmm [facility] Abs Monocyte 0.41 0.20 - 1.00 k/cmm [facility] Abs Eosinophil 0.13 0.00 - 0.60 k/cmm [facility] Abs Basophil 0.01 0.00 - 0.20 k/cmm [facility] Blood 11/20/2023 1:20 PM CDT 11/20/2023 2:24 PM CDT Narrative [facility] - 11/20/2023 2:35 PM CDT Bill to Corporate Kidney Acquisition ??Account [facility] [address] [place] [address] * CALCIUM, TOTAL (11/20/2023 1:20 PM CDT) Calcium 8.6 8.6 - 10.0 mg/dL [facility] Blood 11/20/2023 1:20 PM CDT 11/20/2023 2:24 PM CDT Narrative [facility] - 11/20/2023 2:49 PM CDT Bill to Corporate Kidney Acquisition ??Account [facility] [address] [address] * BLOOD TYPING-ABO/RH (11/20/2023 1:20 PM CDT) ABORHG O POS [facility] Blood 11/20/2023 1:20 PM CDT 11/20/2023 2:29 PM CDT Narrative [facility] - 11/20/2023 3:06 PM CDT Bill to Corporate Kidney Acquisition ??Account [facility]a [facility] TRANSFUSION SER VICES Performing Organization Address [facility] Co de Phone Number [address] [address] * BILIRUBIN, TOTAL (ONLY) (11/20/2023 1:20 PM CDT) Bili Total 0.5 <=1.2 mg/dL [facility] Blood 11/20/2023 1:20 PM CDT 11/20/2023 2:24 PM CDT Narrative [facility] - 11/20/2023 2:49 PM CDT Bill to Corporate Kidney Acquisition ??Account [facility] Performing Organization Address City/[facility]/ZIP Co de Phone Number [address] [address] * AST (SGOT) (11/20/2023 1:20 PM CDT) AST(SGOT) 15 5 - 40 IU/L [facility] Blood 11/20/2023 1:20 PM CDT 11/20/2023 2:24 PM CDT Narrative [facility] - 11/20/2023 2:49 PM CDT Bill to Corporate Kidney Acquisition ??Account [facility] [address] [address] * ALT (SGPT) (11/20/2023 1:20 PM CDT) ALT (SGPT) 9 <=41 IU/L [facility] Blood 11/20/2023 1:20 PM CDT 11/20/2023 2:24 PM CDT Narrative [facility] - 11/20/2023 2:49 PM CDT Bill to Corporate Kidney Acquisition ??Account [facility] Performing Organization Address City/[facility]/ZIP Co de Phone Number [facility] [address] [address] * ALKALINE PHOSPHATASE (11/20/2023 1:20 PM CDT) Alk Phos 118 40 - 129 IU/L [facility] Comment:No reference range e stablished for patients <18 years old. Blood 11/20/2023 1:20 PM CDT 11/20/2023 2:24 PM CDT Narrative [facility] - 11/20/2023 2:49 PM CDT Bill to Corporate Kidney Acquisition ??Account [facility] [address] [address] * ALBUMIN (11/20/2023 1:20 PM CDT) Albumin 4.3 3.8 - 5.1 g/dL [facility] Blood 11/20/2023 1:20 PM CDT 11/20/2023 2:24 PM CDT Narrative [facility] - 11/20/2023 2:49 PM CDT Bill to Corporate Kidney Acquisition ??Account [facility] [address] [place] [address] documented in this encounter Visit Diagnoses Diagnosis Chronic kidney disease- Primary Chronic kidney disease, unspecified documented in this encounter
--- OUTSIDE RECORDS SUMMARY | 2023-12-14 21:13 | XMS_ITS | Encounter Summary ---
Author Organization [facility] Address [address] [facility] [place] [address] Phone Care Team Providers Care Health Occupations Instructor Name Role Phone Unavailable Primary Care Provider Unavailabl e Reason for Visit * Reason Comments Medical Nutrition Therapy Encounter Details Date Type Department Care Team (Late st Contact Info) Description 11/20/2023 1:30 PM CDT Office Visit Transplant Program [address] [facility] [address] [place], [place] [phone] Neva Carbajal MBBS [address] [facility] [address] [place], [place] [phone] Jade Goode RD, LD [address] [facility] [address] [place], [place] [id number] Encounter for pre-transplant evaluation for kidney transplant [...] 35.4 inches (90 cm) for South , Yakut, or Telugu [email or web address]-[email or web address]-[email or web address]-groups/ Waist to Height Ratio (W:HtR): 0.63 (11/20/2023) Estimation of T2DM, HTN, CVD, and mortality risk due to central adiposity (questionable accuracy when BMI>35) 0.4 to 0.49 (no indication of increased health risks due to central adiposity) 0.5 to 0.59 (increased health risks due to increased central adiposity) 0.6 or more (further increased health risks due to high central adiposity) https://www.nice.org.uk/guidance/cg189/chapter/Recommendations#ctnitrgdwjr-ktb-x nfmjumid-haxsrcznqm-tavakdt-uok-mgkuxbx-xpvgoxzuz (Clinical guideline [CG189] last updated 03 November 2021) Hand Hand Slitter Strength (HGS) Examination ([employer] Society of Hand Therapists 2016) Equipment: [employer]draulic Hand Dynamometer [id number] Test Hand Date Readings in pounds force Patient Mean Normal (mean for age & sex) Alert Level (minus 2 SD for age & sex) Right hand 11/20/2023 85, 85, 94 88 116.8 75.4 Left hand 11/20/2023 Dialysis access NA 112.8 75.4 Patient Position: Seated upright in chair, arms bent at 90 degrees Patient agreed to exam. Patient tolerated exam. Reference ranges p.5: [email or web address] Frailty Screen: 1. How many days in [...] 0) Weight Loss Score = 0 4. Hand Slitter Strength (dominant hand): Normal HGS for BMI [...] to 29 : <=39.5# >29 : <=46# Hand Slitter Strength Score = 0 5. Walk Time [...] Mortality (Tristen Oconnell et farzaneh, J [employer]2017) Social History: Alcohol: none with illness, [...] Pre-tx info session Accompanied by Daughter Becki Product Support Consultant NA Prior MNT Dialysis RD CDCES yrs [...] Meals out: 1 x wk - maybe vincentian Usual fluid intake / 24 hr ~2 [...] Insecurity: No Food Insecurity (06/04/2023) Received from [email or web address], [employer] [facility] Food Insecurity Worried About Running Out [...] 12/03/2023 9:58 AM Certified Clinical Transplant Dietitian [employer] [phone] documented in this encounter Plan of Treatment Upcoming Encounters Date Type Department Care Team (Late st Contact Info) Description 12/18/2023 11:00 AM CDT Office Visit Clinic & Specialty Center Cardiology Clinic [address] [address] Denae Mckeon MD [address] [place], [place] [phone] Scheduled Discharge Disposition: Discharged to home or self care 01/01/2024 2:00 PM POCKET GRINDER OPERATOR Office Visit Transplant Program 701 [facility] [address] [place], [place] [address] Ning Leiva MD [address] [place] [address] Scheduled Discharge Disposition: Discharged to home or self care documented as of this encounter Visit Diagnoses Diagnosis Encounter for pre-transplant evaluation for kidney transplant- Primary documented in this encounter
--- OUTSIDE RECORDS SUMMARY | 2023-12-14 21:13 | XMS_ITS | Encounter Summary ---
Author Organization [facility] Address 1 [place] [address] Phone Care Team Providers Care Transportation Security Screener Name Role Phone Unavailable Primary Care Provider [...] TRCG ONLY W/O I&R Echo Lab 701 [facility] [place] [address] Referral ID Status Reason Start Date Expiration Date Visits Re quested Visits Authorized [id number] Closed 2 2 Encounter Details Date Type Department Care Team (Latest Contact Info) Description 11/20/2023 9:55 AM CDT - 11/20/2023 11:59 PM T Hospital Encounter [facility] Echo Lab 701 [facility] [address] [place] [address] Blayne Quiroz MD [address] [address] Hue Padilla, RATNA 701 [place] [address] Jerel Pena, RN 701 [place] [address] Discharge Disposition: Discharged to home [...] & Specialty Center Cardiology Clinic [address] [address] Denae Mckeon MD 701 [facility] [address] [place] [address] Scheduled Discharge Disposition: Discharged to home or self care 01/01/2024 2:00 PM PRODUCT MANAGEMENT INTERN Office Visit Transplant Program 701 [facility] [address] [place] [address] Ning Leiva MD 701 [facility] [address] [place] [address] Scheduled Discharge Disposition: Discharged to home or [...] ? 67.01 Inches JESSICA Patient Number ?? [id number] ?Weight ? 205 Pounds Date of ?1980 ? BSA ?2.04 m^2 Age ?43 ? Tape Number: Gender ? Male ? Study Date ? 11/20/2023 10:51 AM Densitometrist ?MA ? Ordering Provider ??CORBY CARUSO Referring ? Interpreting ? Hue Flynn MD Physician ? Physician ?[id number] Type of Study: Stress procedure: ECH EXERCISE [...] HR: 176 bpm ? HR BP Product: 68077 % of predicted HR: 62 ? Max [...] VINAY Height 67.01 Inches JESSICA Patient Number [id number] Weight 205 Pounds Date of 1980 BSA 2.04 m^2 Age 43 Tape Number: Gender Male Study Date 11/20/2023 10:51 AM Densitometrist MA Ordering Provider CORBY CARUSO Referring Interpreting Hue Flynn MD Physician Physician [id number] Type of Study: Stress procedure: ECH EXERCISE [...] Predicted HR: 176 bpm HR BP Product: 20605 % of predicted HR: 62 Max Exercise: [...] improved withstress. Blayne Quiroz MD RAD ECHO [facility] HEARTLAB documented in this encounter Visit Diagnoses Diagnosis [...]
--- OUTSIDE RECORDS SUMMARY | 2023-12-14 21:13 | XMS_ITS | Clinical Summary ---
Author Organization [employer] [facility] Address [place], [place] [address] Care Team Providers Care Licensing Director Name Role Phone Daysi Pires Primary Care [...] times daily. 60 Tablet 4 Active sensor (Creditableyle Gale 3 Sensor) for continuous blood glucose [...] Type Department Care Team Description 12/12/2023 Telephone [facility] [address] [place] [address] Mina Carnes DPJessi Appointment 12/10/2023 Telephone [facility] [address] [place] [address] Daysi Pires PA antibiotic not working (antibiotic finished) 12/10/2023 Telephone [facility] [address] [place] [address] Daysi Pires PA Questions (finished zpac and still feeling sick) 12/07/2023 Telephone [facility] [address] [place] [address] Daysi Pires PA RETURNING CALL 12/03/2023 Telephone [facility] [address] [place] [address] Daysi Pires PA Follow Up 11/30/2023 3:30 PM CDT Ancillary Procedure [facility] [address] [place] [address] 11/30/2023 2:40 PM CDT Office Visit [facility] [address] [place] [address] Daysi Pires PA Follow Up (Coughing, SOB, chills started Sunday) 11/30/2023 Travel 11/14/2023 Orders Only [facility] Scanner 1 scan: (1-Ord) PETACA, WOUND DEBRIDEMENT LEFT TOE, 11/14/2023 11/07/2023 Orders Only [facility] Scanner 1 scan: (1-Ord[facility], 11/07/2023 10/31/2023 11:35 AM CDT Office Visit [facility] [address] [place] [facility] [place] [address] Ning Lopez PA Hospital F/U (Slowly feeling better ) 10/31/2023 Travel 10/26/2023 Patient Outreach [facility] [address] [place] [address] Laura Reyes RN Primary RN Care Management (Lace 56); Hospital F/U 10/23/2023 5:44 PM CDT - 10/25/2023 5:30 AM CDT Hospital Encounter [facility] [address] [place] [address] Aiden Babin MD [facility] Hospitalists Of Eyad Wallace MD Kethireddy, Rajesh Babu, MBBS Lower extremity edema (Primary Dx); ESRD (end stage renal disease) (HC); HTN (hypertension) Discharge Disposition: Home Self Care 10/23/2023 Travel 10/19/2023 Nurse Triage [facility] 1400 [facility] [address] Daysi Pires PA Chest Pain from Last 3 Months Immunizations Name Administration Dates Next Due Hep B (Hepatitis B (Adult) Recombinant Adjuvanted) 03/15/2023,01/12/2023,12/13/2022,09/20/ 2023 Influenza RIV4 (Age 18+ Year s) PRESERV [...] Description 12/18/2023 2:15 PM CDT Office Visit [facility] [address] [place] [address] Mina Carnes DPM [address] [place] [address] Health Maintenance Due Date Last Done Comments [...] of7 resultswithin the time period is included. [facility] Signature GLUCOSE METER 127(H) 65 - 100 mg/dL 10/25/2023 12:33 PM CDT [facility] Blood BLOOD SPECIMEN / Unknown 10/25/2023 12:32 PM CDT 10/25/2023 12:33 PM CDT Sean CHO CHEMISTRY [facility] [address] [place] [address], [place] * ECHO TTE COMPLETE WO CONTRAST (10/24/2023 11:01 AM CDT) AORTIC VALVE MEAN PG 4 mmHg LVEDD 5.2 cm EJECTION FRACTION 55 - 60% Anatomical Region Laterality Modality Ultrasound 10/24/2023 9:54 AM CDT Narrative 10/24/2023 11:09 AM CDT ECHOCARDIOGRAM MACO GARCIABeatrizKRISS ? Accession#: ?? [id number] : ?1980 43 years Study Date: ?? 10/24/2023 9:54:07 AM Gender: M ?BP: ? 180/83 mmHg Height: 175.00 cm ?BSA: ?2.10 m? ? ? Weight: 95.00 kg ? Tech: ? CJG ? Referring MD: EYAD WALLACE Site: ? [facility] Reading Location: ANW IP Patient [...] detected. Comparison Compared to prior exam of STREET LIGHT MECHANIC, there has been no significant change. Chamber [...] . This study was interpreted by an [facility] accredited facility. ??Final ?? Procedure Note Alex Weaver MD - 10/24/2023 ECHOCARDIOGRAM MACO STEIN : 1980 43 years Study Date: 10/24/2023 9:54:07 AM Gender: M BP: 180/83 mmHg Height: 175.00 cm BSA: 2.10 m? ? ? Weight: 95.00 kg Tech: [facility] Referring MD: EYAD WALLACE Site: [facility] Reading Location: [facility] Patient Location: Inpatient. Procedure: 2D [...] detected. Comparison Compared to prior exam of STREET LIGHT MECHANIC, there has been no significant change. Chamber [...] . This study was interpreted by an [facility] accredited facility. Final Eyad Wallace MD ECHO ORD * HBSAG (HBS) (10/24/2023 7:01 AM CDT) HBSAG Nonreactive Nonreactive 10/24/2023 10:42 AM CDT [facility] Blood BLOOD SPECIMEN / Unknown Venipuncture / Unknown 10/24/2023 7:01 AM CDT 10/24/2023 8:32 AM CDT Rabia Husain MD SEND OUT S Performing Organization Address City/[facility]/ZIP Co de Phone Number [facility] [address] [place] [address], * (ABNORMAL) Electrolyte panel AM (10/24/2023 7:01 AM CDT) SODIUM 134(L) 136 - 145 mmol/L 10/24/2023 8:56 AM CDT [facility] POTASSIUM 4.1 3.5 - 5.1 mmol/L 10/24/2023 8:56 AM CDT [facility] CHLORIDE 94(L) 98 - 107 mmol/L 10/24/2023 8:56 AM CDT [facility] CO2,TOTAL 28 22 - 29 mmol/L 10/24/2023 8:56 AM CDT [facility] ANION GAP 12 5 - 18 10/24/2023 8:56 AM CDT [facility] Blood BLOOD SPECIMEN / Unknown Venipuncture / Unknown 10/24/2023 7:01 AM CDT 10/24/2023 8:32 AM CDT Eyad Wallace MD CHEMISTRY Performing Organization Address City/[facility]/ZIP Co de Phone Number [facility] [address] [place] [address], [place] * US VENOUS LOWER EXTREMITY BILATERAL [...] (HS) ONE TIME (10/23/2023 6:57 PM CDT) [facility] TROPONIN T HS 44(H) 6-15 ng/L ng/L 10/23/2023 7:35 PM CDT [facility] Blood BLOOD SPECIMEN / [...] department patient population. Aiden Babin MD CHEMISTRY [facility] [address] [place] [address], * (ABNORMAL) CBC W PLT NO DIFF (10/23/2023 6:57 PM CDT) [facility] WHITE BLOOD COUNT 6.3 4.5 - 11.0 thou/cu mm 10/23/2023 7:15 PM CDT [facility] RED BLOOD COUNT 2.63(L) 4.30 - 5.90 mil/cu mm 10/23/2023 7:15 PM CDT [facility] HEMOGLOBIN 8.7(L) 13.5 - 17.5 g/dL 10/23/2023 7:15 PM CDT [facility] HEMATOCRIT 25.0(L) 37.0 - 53.0 % 10/23/2023 7:15 PM CDT [facility] MCV 95 80 - 100 fL 10/23/2023 7:15 PM CDT [facility] MCH 33.1 26.0 - 34.0 pg 10/23/2023 7:15 PM CDT [facility] MCHC 34.8 32.0 - 36.0 g/dL 10/23/2023 7:15 PM CDT [facility] RDW 13.2 11.5 - 15.5 % 10/23/2023 7:15 PM CDT [facility] PLATELET COUNT 100(L) 140 - 440 thou/cu mm 10/23/2023 7:15 PM CDT [facility] MPV 12.0(H) 6.5 - 11.0 fL 10/23/2023 7:15 PM CDT [facility] NRBC 0.0 % 10/23/2023 7:15 PM CDT [facility] ABS NRBC 0.0 thou /cu mm 10/23/2023 7:15 PM CDT [facility] Blood BLOOD SPECIMEN / Unknown Butterfly / Unknown 10/23/2023 6:57 PM CDT 10/23/2023 7:09 PM CDT Aiden Babin MD HEMATOLOGY [facility] [address] [address], [place] * (ABNORMAL) HEPATIC FUNCTION PANEL (10/23/2023 6:57 PM CDT) ALBUMIN 3.7(L) 4.0 - 4.9 g/dL 10/23/2023 7:35 PM CDT [facility] PROTEIN,TOTAL 6.9 6.0 - 8.0 g/dL 10/23/2023 7:35 PM CDT [facility] BILIRUBIN,TOTAL 0.5 0.0 - 1.2 mg/dL 10/23/2023 7:35 PM CDT [facility] BILIRUBIN,DIRECT 0.2 0.0 - 0.2 mg/dL 10/23/2023 7:35 PM CDT [facility] BILIRUBIN,INDIRE CT 0.3 0.2 - 0.8 mg/dL 10/23/2023 7:35 PM CDT [facility] ALK PHOSPHATASE 74 40 - 129 IU/L 10/23/2023 7:35 PM CDT [facility] ALT (SGPT) 7(L) 10 - 50 IU/L 10/23/2023 7:35 PM CDT [facility] AST (SGOT) 17 10 - 50 IU/L 10/23/2023 7:35 PM CDT [facility] Blood BLOOD SPECIMEN / Unknown Butterfly / Unknown 10/23/2023 6:57 PM CDT 10/23/2023 7:09 PM CDT Aiden Babin MD CHEMISTRY [facility] [address] [place] [address], [place] * (ABNORMAL) BASIC METABOLIC PANEL (10/23/2023 6:57 PM CDT) SODIUM 131(L) 136 - 145 mmol/L 10/23/2023 7:35 PM CDT [facility] POTASSIUM 4.1 3.5 - 5.1 mmol/L 10/23/2023 7:35 PM CDT [facility] CHLORIDE 90(L) 98 - 107 mmol/L 10/23/2023 7:35 PM T [facility] CO2,TOTAL 29 22 - 29 mmol/L 10/23/2023 7:35 PM CDT [facility] ANION GAP 12 5 - 18 10/23/2023 7:35 PM T [facility] GLUCOSE 366(H) 70 - 99 mg/dL 10/23/2023 7:35 PM T [facility] CALCIUM 8.7 8.6 - 10.0 mg/dL 10/23/2023 7:35 PM T [facility] BUN 29(H) 6 - 20 mg/dL 10/23/2023 7:35 PM T [facility] CREATININE 6.62(H) 0.70 - 1.20 mg/dL 10/23/2023 7:35 PM T [facility] BUN/CREAT RATIO 4(L) 10 - 20 7:35 PM T [facility] eGFR 10(L) >90 mL/min/1.7 3m2 10/23/2023 7:35 PM T [facility] Comment:As of 2021, eG [...] 7:09 PM CDT Aiden Babin MD CHEMISTRY [facility] [address] [place] [address], [place] * EKG 12 LEAD (10/23/2023 5:34 PM CDT) Pathologist [facility] Interpretation Normal sinus rhythm Normal ECG Compared to ekg of 3 No Change BEYOND NOW Ventricular Rate 93 BPM BEYOND NOW Atrial Rate 93 BPM BEYOND NOW P-R Interval 170 ms BEYOND NOW QRS Duration 80 ms BEYOND NOW QT 362 ms BEYOND NOW QTc 450 ms BEYOND NOW P [place] 29 degrees BEYOND NOW R [place] 56 degrees BEYOND NOW T [place] 68 degrees BEYOND NOW 10/23/2023 5:34 PM CDT 10/23/2023 11:22 PM CDT Aiden Babin MD EKG ORD Performing Organization Address [facility] Co de Phone Number BEYOND NOW [place], [place] * (ABNORMAL) LIPID PANEL (12/06/2021 3:00 PM CDT) [facility] CHOLESTEROL,TOTAL 163 100 - 199 mg/dL 12/07/2021 3:15 PM CDT [facility] TRIGLYCERIDES 272(H) <150 mg/dL 12/07/2021 3:15 PM T [facility] HDL CHOLESTEROL 23(L) >40 mg/dL 3:15 PM T [facility] NON-HDL CHOLESTEROL 140 <145 mg/dl 12/07/2021 3:15 PM T [facility] CHOL/HDL RATIO 7.09(H) <4.50 12/07/2021 3:15 PM T [facility] LDL CHOLESTEROL 86 <=130 mg/dL 12/07/2021 3:15 PM T [facility] VLDL CHOLESTEROL 54(H) <=30 mg/dL 12/07/2021 3:15 PM [facility] PROVIDER ORDERED STATUS RANDOM 12/07/2021 3:15 PM T [facility] Blood BLOOD SPECIMEN / Unknown 12/06/2021 3:00 PM CDT 12/07/2021 2:[address] LIGHT MECHANIC CHEMISTRY [facility] [address] [place] [address] from Last 3 Months or Most Recently Relevant to Health Maintenance Advance Directives Documents on File Type Date Recorded Patient Human Resources Records Clerk Expl anation Healthcare Directive 09/26/2022 023 * Full Code (Latest Code Status on File) Date Activated Date Inactivated Comments 10/23/2023 8:52 PM 10/26/2023 1:29 AM Question Answer Comments Code Status Discussion: Reviewed Preferences * Full Code Date Activated Date Inactivated Comments 09/15/2022 5:47 PM 09/27/2022 6:10 PM Question Answer Comments Code Status Discussion: Reviewed Preferences Care Teams Licensing Director Relationship Specialty Start Date End Date Daysi [place] [address] PCP - General Physician Deep Fat Cook Fry 06/04/23
--- OUTSIDE RECORDS SUMMARY | 2023-12-14 21:13 | XMS_ITS | Encounter Summary ---
Author Organization [facility] Address [address] [place] [address] Care Team Providers Care Inspector Name Role Phone No, Pcp Primary Care Provider [phone] Encounter Details Date Type Department Care Team (Late st Contact Info) Description 12/02/2023 Orders Only [facility] [address] [place] [address] Julito Cortez MD [address] [place] [address] Social History Tobacco Use [...] SPKT/V DAUGIRDAS II (HHD & NXSTAGE) 0.78 [facility] 12/02/2023 12/02/2023 [facility] Ordering Provider LAB BLOOD ORDERABLES Final Result [facility] Contact Performing lab Unknown, [place] * (ABNORMAL) HD KINETICS (12/02/2023) Pathologist [facility] % Urea Reduction 52(L) 65 - 80 % [facility] 12/02/2023 12/04/2023 10: 54 AM CDT Narrative [facility] - 12/04/2023 Unless otherwise specified, test(s) performed at: [facility], [address] [place] [address], [place] [address] FOUNDRY HELPER: Gurdeep Ricardo M.D., Ph.D For any questions, please call customer service at FREQUENCY:MONTHLY Resulting Agency Comment Specimen source: Plasma Julito Cortez MD LAB BLOOD ORDERABLES Final Resul t [facility] See order comments or contact performing lab Unknown, [place] * (ABNORMAL) [facility] (12/02/2023) Pathologist [facility] BUN 42(H) 6 - 19 mg/dL [facility] [...] 12/02/2023 12/04/2023 9:3 8 AM CDT Narrative [facility] - 12/05/2023 Unless otherwise specified, test(s) performed at: [facility], [address] [place] [address], [place] [address] FOUNDRY HELPER: Gurdeep Ricardo M.D., Ph.D For any questions, please call customer service at FREQUENCY:MONTHLY Resulting Agency Comment Specimen source: Serum Julito Cortez MD LAB BLOOD ORDERABLES Edited Resu lt - Final Performing Organization Address [facility] de Phone Number [facility] [email or web address] [facility] See order comments or contact performing lab Unknown, [place] * (ABNORMAL) [facility] (12/02/2023) PTH 357(H) 16 - 80 pg/mL [facility] 12/02/2023 12/04/2023 10: 16 AM CDT Narrative [facility] - 12/04/2023 Unless otherwise specified, test(s) performed at: [facility], [address] [place] [address], [place] [address] FOUNDRY HELPER: Gurdeep Ricardo M.D., Ph.D For any questions, please call customer service at FREQUENCY:MONTHLY Resulting Agency Comment Specimen source: Plasma Julito Cortez MD LAB BLOOD ORDERABLES Final Resul t Performing Organization Address [facility] de Phone Number [facility] [email or web address] [facility] See order comments or contact performing lab Unknown, [place] * (ABNORMAL) POST CHEMISTRY (12/02/2023) BUN Post Dialysis 20(H) 6 - 19 mg/dL [facility] 12/02/2023 12/04/2023 10: 54 AM CDT Narrative [facility] - 12/04/2023 Unless otherwise specified, test(s) performed at: [facility], [address] [place] [address], [place] [address] FOUNDRY HELPER: Gurdeep Ricardo M.D., Ph.D For any questions, please call customer service at FREQUENCY:MONTHLY Resulting Agency Comment Specimen source: Plasma Julito Cortez MD LAB BLOOD ORDERABLES Final Resul t [facility] See order comments or contact performing [...] 12/02/2023 12/04/2023 10: 16 AM CDT Narrative [facility] 12/04/2023 Unless otherwise specified, test(s) performed at: [facility], [address] [place] [address] FOUNDRY HELPER: Gurdeep Ricardo M.D., Ph.D For any questions, please call customer service at FREQUENCY:MONTHLY Resulting Agency Comment Specimen source: Blood us Julito Cortez MD LAB BLOOD ORDERABLES Final Resul t [facility] See order comments or contact performing lab Unknown, [place] documented in this encounter Visit Diagnoses Not on filedocumented in this encounter Care Teams Inspector Relationship Specialty Start Date End Date No, Pcp PCP - General Internal Medicine 09/10/23 documented as of this encounter
--- OUTSIDE RECORDS SUMMARY | 2023-12-14 21:13 | XMS_ITS | Encounter Summary ---
Author Organization [facility] Address [address] [place] [address] Phone Care Team Providers Care Geologist Petroleum Name Role Phone Unavailable Primary Care Provider Unavailabl e Encounter Details Date Type Department Care Team (Late st Contact Info) Description 04/25/2023 Abstract Transplant Program [address] [place] [address] [facility] [place] [address] Williams Lindquist, Transplant Billet Driller [address] [place] [phone] Social History Tobacco Use Types Packs/Day Years [...] Clinic & Specialty Center Cardiology Clinic [address] [address] Denae Mckeon MD 701 [facility] [address] [place] [address] Scheduled Discharge Disposition: Discharged to home or self care 01/01/2024 2:00 [address]RE[address]CAR DISPATCHER Office Visit Transplant Program 1 [facility] [address] [place] [address] Ning Leiva MD 701 [facility] [address] [place] [address] Scheduled Discharge Disposition: Discharged to home or self care documented as of this encounter Visit Diagnoses Not on filedocumented in this encounter
--- OUTSIDE RECORDS SUMMARY | 2023-12-14 21:13 | XMS_ITS | Encounter Summary ---
Author Organization [facility] Address [address] [place] [address] Phone Care Team Providers Care Sap Basis Name Role Phone Unavailable Primary Care Provider Unavailabl e Encounter Details Date Type Department Care Team (Late st Contact Info) Description 10/03/2023 Documentation Only Transplant Program [address] [place], [place] [id number] Williams Lindquist Transplant Track Worker [address] [place], [place] [address] Social History Tobacco Use Types Packs/Day Years Used Date Smoking Tobacco: Never Assessed Sex and Gender Information Value Date Recorded Sex Assigned at Not on file Gender Identity Not on file Sexual Orientation Not on file documented as of this encounter Progress Notes * Williams Lindquist Transplant Track Worker - 10/03/2023 9:12 AM CDT D/A: Received message from patient's daughter stating his Emergency Medical Assistance insurance isin place again. This was verified by [facility] website. Patient contacted and informed someone will becontacting him to reschedule the appointments that had to be canceled in August. Also talked with himabout applying for Uncompensated Care and patient requested an email be sent to him with the numberto call. Brenna Lindquist Transplant Track Worker, Tuesday October 03, 2023 09:16 documented in this encounter Plan of Treatment Upcoming Encounters Date Type Department Care Team (Late st Contact Info) Description 12/18/2023 11:00 AM CDT Office Visit Clinic & Specialty Center Cardiology Clinic [address] [address] Denae Mckeon MD [address] [place] [address] Scheduled Discharge Disposition: Discharged to home or self care 01/01/2024 2:00 PM STONE PRODUCT FABRICATOR Office Visit Transplant Program [address] [place] [address] Ning Leiva MD [address] [place] [address] Scheduled Discharge Disposition: Discharged to home or self care documented as of this encounter Visit Diagnoses Not on filedocumented in this encounter
--- OUTSIDE RECORDS SUMMARY | 2023-12-14 21:13 | XMS_ITS | Clinical Summary ---
Author Organization [facility] Facility Address [address] [facility] [address] [place] [address] Care Team Providers Care Hole Digger Operator Name Role Phone No, Pcp Primary Care Provider [phone] Active Problems Problem Noted Date Diagnosed Date End stage renal disease 11/23/2023 Dependence on renal dialysis 11/23/2023 Type 2 diabetes mellitus 11/23/2023 Encounters Date Type Department Care Team Description 12/02/2023 Orders Only [facility] [address] [facility] [address] [place] [address] Julito Cortez MD 11/22/2023 Orders Only [facility] [address] [facility] [address] [place] [address] Julito Cortez MD 11/22/2023 Treatment [facility] [address] [address] Julito Cortez MD 11/08/2023 Orders Only [facility] [address] [address] Julito Cortez MD 11/03/2023 Orders Only [facility] [place] [address] [facility] [address] [place] [address] Julito Cortez MD 09/27/2023 Orders Only [facility] [place] [address] [facility] [address] [place] [address] Julito Cortez MD 09/26/2023 Treatment [facility] [address] [place] [id number] Julito Cortez MD from Last 3 Months [...] Urea Reduction 52(L) 65 - 80 % [facility] 12/02/2023 12/04/2023 10: 54 AM CDT Narrative [facility] - 12/04/2023 Unless otherwise specified, test(s) performed at: [email or web address], [address] [place] [address], [place] [address] RN TRANSPLANT: Gurdeep Ricardo M.D., Ph.D For any questions, please call customer service at FREQUENCY:MONTHLY Resulting Agency Comment Specimen source: Plasma us Julito Cortez MD LAB BLOOD ORDERABLES Final Resul t [facility] See order comments or contact performing lab Unknown, [place] * (ABNORMAL) POST CHEMISTRY (12/02/2023) Only the most recent of3 resultswithin the time period is included. Pathologist [facility] BUN Post Dialysis 20(H) 6 - 19 mg/dL [facility] 12/02/2023 12/04/2023 10: 54 AM CDT Narrative [facility] - 12/04/2023 Unless otherwise specified, test(s) performed at: [email or web address], [address] [place] [address], [place] [address] RN TRANSPLANT: Gurdeep Ricardo M.D., Ph.D For any questions, please call customer service at FREQUENCY:MONTHLY Resulting Agency Comment Specimen source: Plasma Julito Cortez MD LAB BLOOD ORDERABLES Final Resul t [facility] See order comments or [...] 12/04/2023 Unless otherwise specified, test(s) performed at: [email or web address], [address] [place] [address], [place] [address] RN TRANSPLANT: Gurdeep Ricardo M.D., Ph.D For any questions, [...] 12/02/2023 12/04/2023 9:3 8 AM CDT Narrative [facility] - 12/05/2023 Unless otherwise specified, test(s) performed at: [email or web address], [address] [place] [address], [place] [address] RN TRANSPLANT: Gurdeep Ricardo M.D., Ph.D For any questions, please call customer service at FREQUENCY:MONTHLY Resulting Agency Comment Specimen source: Serum Julito Cortez MD LAB BLOOD ORDERABLES Edited Resu lt - Final [facility] See order comments or contact performing lab Unknown, [place] * [facility] Results (12/02/2023) Only the most recent of3 resultswithin the time period is included. WSTDKT/V 2.2 [facility] Simple KT/V (HHD and NXSTAGE) 0.73 [facility] SPKT/V DAUGIRDAS II (HHD & NXSTAGE) 0.78 [facility] 12/02/2023 12/02/2023 [facility] Ordering Provider LAB BLOOD ORDERABLES Final Result [facility] Contact Performing lab Unknown, [place] from Last 3 Months Insurance [place]ICAID [place] Care Teams Hole Digger Operator Relationship Specialty Start Date End Date No, Pcp PCP - General Internal Medicine 09/10/23
--- OUTSIDE RECORDS SUMMARY | 2023-12-14 21:13 | XMS_ITS | Encounter Summary ---
Author Organization [facility] [place] Address [address] [place] [address] Care Team Providers Care Endoscope Technician Name Role Phone No, Pcp Primary Care Provider [phone] Encounter Details Date Type Department Care Team (Late st Contact Info) Description 11/22/2023 Treatment [facility] [place] [address] [place] [address] Julito Cortez MD [address] [facility] [address] [place] [address] Social History Tobacco Use Types [...] Name: Maco Stein : 1980 Chart #: [id number] Sex: M This patient was personally seen for a complete visit as part of routine monthly dialysis care. A review of the dialysis treatment, blood pressure, estimated dry weight and recent lab values was made. These were discussed with the patient and staff as necessary. SURVEILLANCE TECHNICIAN: Julito Cortez MD LOCATION: [place] [address]/[phone] SCHEDULE: EDW: kg. DIALYZER: HD DURATION: NEEDLE [...] or CP. has appt next week at [facility] Txp. 06/15/23: Feels well. no [...] worse on the run. has appt at [facility] next Tu with Dr. Solorzano. fingers cool but not cold, no weakness, no pain. Interested in HHD and going to for education tomorrow. referred for txp to [facility]. 01/24/23: Feels well, got his AVF at [facility] yesterday. no arm pain. no SOB or CP. 12/25/22: BP is better after lowering his meds. still has ringing in his ears at end of every run, and leaving about EDW and no edema or SOB. Going for AVF soon. still can't do Txp eval until insurance is confirmed. 11/24/22: Feels fine today. No SOB or CP. hasn't been to [facility], yet. no N/V. 11/01/22: my second time seeing him. feels better. has had some tinnitus. BP is high but no MORA, blurry vision, CP or SOB. appetite is better. Taking losartan 50 mg/d. 10/02/22: My first time meeting him. his second time here, started here 09/29. Came from [facility] where he initiated. Feels ok today. no SOB or CP Advanced Practitioner Subjective HOSPITAL AIDES AND ASSISTANTS TEACHER 08/01/2023:Seen on dialysis. Doing well. No SOB, or chest pain reported. Arm access working well; no reported issues. BP slightly elevated. Leaving close to EDW. Potassium improved. Continue plan ofcare. HOSPITAL AIDES AND ASSISTANTS TEACHER 06/06/2023: Patient seen on dialysis. Doing well. [...] mouth twice a day 07/13/2023 RenaPlex-D (vit b,s-wv-vwgu-selen-vit d3-e) 800 mcg-12.5 mg-2,000 unit tablet Take [...] of access: Fistula Surgeon - IR at [facility] Staff and patient report access is working well. Send to Surgeon for access creation. 04/10/23: using AVF d #2 today. 03/01/23: may have steal, going to see surgeon 03/06/23 11/29/23 L AVF at [facility] 01/23/23 (see OP note) 12/25/22: has [facility] appt upcoming 11/01/22: needs AVF eval at [facility] 10/02/22: needs AVF eval at [facility] Anemia Assessment HEMOGLOBIN (G/DL) IN BLOOD [...] K+ diet education ongoing 08/13/23: Labs pending HOSPITAL AIDES AND ASSISTANTS TEACHER 02/08/2023: Educated on low potassium foods. Bone [...] at goal. Intact PTH is at goal. Screen Door Maker will adjust binders and vitamin D per protocol and continue to provide dietary education. 08/13/23: Labs pending Cardiovascular Assessment Blood pressures reviewed and are acceptable. Intradialytic weight gains are appropriate. Estimated dry weight is appropriate. Continue same cardiovascular medications. 11/22/23: erratic BP's and keep log and report to us in 1-2 wks. HOSPITAL AIDES AND ASSISTANTS TEACHER 05/11/2023 decreased to 95.5 kg 03/01/23: increase 96 12/25/22: increase 93.5 11/24/22: increase 92 11/01/22: increase losartan to 100 mg q evening. next would add CCB, edw 93.5 HOSPITAL AIDES AND ASSISTANTS TEACHER 10/09/2022: Had been still taking hydralazine; not started losartan. Instructed to make change 10/02/22: d/c hydralazine, add Losartan 50 mg q evening. Transplant Status: Patient has been referred. Center - [facility] 04/10/23: got his LEA in Jan and was referred to [facility], still waiting to hear back [...] on filedocumented in this encounter Care Teams Endoscope Technician Relationship Specialty Start Date End Date No, Pcp PCP - General Internal Medicine 09/10/23 documented as of this encounter
--- OUTSIDE RECORDS SUMMARY | 2023-12-14 21:13 | XMS_ITS ---
Author Organization [facility] Address [address] [place] [address] Phone Care Team Providers Care Floater Operator Name Role Phone Unavailable Primary Care Provider Unavailabl e Transplant Episode Kidney Candidate [facility] ([place], [place]) - [facility] Evaluation began on 11/20/2023 Marked as Active on 11/20/2023 Kidney CoordinatorChinyere Valencia RN Phone: N/A Fax: N/A Email: N/A Care Team Name Role Phone Fax Email Chinyere Valencia RN Kidney Coordinator N/A N/A N/A Jean Ochoa DO TXP Info Surgeon [phone] N/A Julito Cortez MD Processing Technologist Referring Processing Technologist Referring Provider [phone] N/A Kidney Spec Neph[facility] Referring Nephrology Group TXP Nephrology Group N/A N/A N/A Chinyere Valencia RN TXP Pre Coordinator N/A N/A N/A Events Pre-Transplant Referred: 05/11/2023 Evaluation began: 11/20/2023 Committee: 07/20/2023 Appointments (11/14/2023 - 01/14/2024) When With Description 11/20/2023 Transplant - Kamala Simental Chronic kidne y disease (Primary Dx) 11/20/2023 Transplant - Stacia Goode Encount er for pre-transplant evaluation for kidney transplant (Primary Dx) 01/01/2024 Transplant - Jessi Leiva Sche duled Dialysis History Dialysis History Start End Type Comments Center Home Hemodialysis [facility] Dialysis Center Information Center Phone Fax Address [facility] HD and PD [phone] [address] [facility] [address]
--- OUTSIDE RECORDS SUMMARY | 2023-12-14 21:13 | XMS_ITS | Encounter Summary ---
Author Organization [facility] Address [address] [place] [address] Phone Care Team Providers Care Radiosonde Operator Name Role Phone Unavailable Primary Care Provider Unavailabl e Encounter Details Date Type Department Care Team (Late st Contact Info) Description 09/26/2023 Abstract Transplant Program [address] [place] [address] [facility] [place] [address] Williams Lindquist, Transplant Architectural Manager [address] [place] [id number] Social History Tobacco Use Types Packs/Day Years [...] Clinic & Specialty Center Cardiology Clinic [address] [address] Denae Mckeon MD [address] [facility] [address] [place] [address] Scheduled Discharge Disposition: Discharged to home or self care 01/01/2024 2:00 PM PIPE RECOVERY SPECIALIST Office Visit Transplant Program 1 [facility] [address] [place] [address] Ning Leiva MD [address] [facility] [address] [place] [address] Scheduled Discharge Disposition: Discharged to home or self care documented as of this encounter Visit Diagnoses Not on filedocumented in this encounter
--- OUTSIDE RECORDS SUMMARY | 2023-12-14 21:13 | XMS_ITS | Encounter Summary ---
Author Organization [facility] Address [address] [facility] [address] [place] [address] Care Team Providers Care Catering Assistant Name Role Phone No, Pcp Primary Care Provider [phone] Encounter Details Date Type Department Care Team (Late st Contact Info) Description 11/08/2023 Orders Only [facility] [place] [address] [place] [address] Julito Cortez MD [address] [place] [address] Social History Tobacco Use Types [...] 11/10/2023 Unless otherwise specified, test(s) performed at: [facility], [address] [place] [address], [place] [address] [employer]: Gurdeep Ricardo M.D., Ph.D For any questions, please call customer service at FREQUENCY:OTHER Resulting Agency Comment Specimen source: Serum us Julito Cortez MD LAB BLOOD ORDERABLES Final Resul t [facility] See order comments or contact performing lab Unknown, [place] documented in this encounter Visit Diagnoses Not on filedocumented in this encounter Care Teams Catering Assistant Relationship Specialty Start Date End Date No, Pcp PCP - General Internal Medicine 09/10/23 documented as of this encounter
--- OUTSIDE RECORDS SUMMARY | 2023-12-14 21:13 | XMS_ITS | Encounter Summary ---
Author Organization [facility] [place] Address [address] [facility] [address] [place] [address] Care Team Providers Care Supervisor Contingents Name Role Phone No, Pcp Primary Care Provider [phone] Encounter Details Date Type Department Care Team (Late st Contact Info) Description 11/03/2023 Orders Only [facility] [place] [address] [place] [address] Julito Cortez MD [address] [place] [address] Social History Tobacco Use Types [...] Results * [facility] Results (11/03/2023) [facility] Simple KT/V (HHD and NXSTAGE) 0.65 [facility] SPKT/V DAUGIRDAS II (HHD & NXSTAGE) 0.81 [facility] WSTDKT/V 2.6 [facility] 11/03/2023 11/03/2023 [facility] Ordering Provider LAB BLOOD ORDERABLES Final Result Performing Organization Address [facility]/ZIP Co de Phone Number [facility] Contact Performing lab Unknown, [...] 11/06/2023 Unless otherwise specified, test(s) performed at: [facility], [address] [place] [address], [place] [address] ALLIANCES CONSULTANT: Gurdeep Ricardo M.D., Ph.D For any [...] ORDERABLES Final Resul t Performing Organization Address [facility] de Phone Number [facility] See order comments or contact performing lab Unknown, [place] * (ABNORMAL) POST CHEMISTRY (11/03/2023) BUN Post Dialysis 23(H) 6 - 19 mg/dL [facility] 11/03/2023 11/06/2023 10: 47 AM CDT Narrative [facility] - 11/06/2023 Unless otherwise specified, test(s) performed at: [facility], [address] [place] [address], [place] [address] ALLIANCES CONSULTANT: Gurdeep Ricardo M.D., Ph.D For any questions, please call customer service at FREQUENCY:MONTHLY Resulting Agency Comment Specimen source: Plasma Julito Cortez MD LAB BLOOD ORDERABLES Final Resul t Performing Organization Address [facility] de Phone Number [facility] [...] 11/03/2023 11/06/2023 10: 28 AM CDT Narrative [facility] - 11/06/2023 Unless otherwise specified, test(s) performed at: [facility], [address] [place] [address], [place] [address] ALLIANCES CONSULTANT: Gurdeep Ricardo M.D., Ph.D For any questions, please call customer service at FREQUENCY:MONTHLY Resulting Agency Comment Specimen source: Serum Result [facility] Julito Cortez MD LAB BLOOD ORDERABLES Final Resul t [facility] See order comments or contact performing lab Unknown, [place] * (ABNORMAL) [facility] Chemistry (11/03/2023) PTH 328(H) 16 - 80 pg/mL [facility] 11/03/2023 11/06/2023 10: 37 AM CDT Narrative [facility] - 11/06/2023 Unless otherwise specified, test(s) performed at: [facility], [address] [place] [address], [place] [address] ALLIANCES CONSULTANT: Gurdeep Ricardo M.D., Ph.D For any questions, please call customer service at FREQUENCY:MONTHLY Resulting Agency Comment Specimen source: Plasma us Julito Cortez MD LAB BLOOD ORDERABLES Final Resul t [facility] See order comments or contact performing lab Unknown, [place] documented in this encounter Visit Diagnoses Not on filedocumented in this encounter Care Teams Supervisor Contingents Relationship Specialty Start Date End Date No, Pcp PCP - General Internal Medicine 09/10/23 documented as of this encounter
--- OUTSIDE RECORDS SUMMARY | 2023-12-14 21:13 | XMS_ITS | Encounter Summary ---
Author Organization [facility] Address [address] [facility] [place] [address] Phone Care Team Providers Care Securities Compliance Examiner Name Role Phone Unavailable Primary Care Provider [...] ABDOMEN & PELVIS W/O CONTRAST MATERIAL Ct [facility] [address] [place] [address] Referral ID Status Reason Start Date Expiration Date Visits Re quested Visits Authorized [id number] Closed 1 1 Encounter Details Date Type Department Care Team (Latest Contact Info) Description 11/20/2023 12:08 PM CDT - 11/20/2023 11:59 PM CDT Hospital Encounter [facility] [place] [address] [place], [place] [id number] Blayne Quiroz MD [address] [facility] [address] [place] [address] Discharge Disposition: Discharged to home or self [...] & Specialty Center Cardiology Clinic [address] [address] Denae Mckeon MD [address] [facility] [address] [place], [place] [address] Scheduled Discharge Disposition: Discharged to home or self care 01/01/2024 2:00 PM ORACLE REPORTS DEVELOPER Office Visit Transplant Program [address] [place] [address] [address] [place], [place] [address] Ning Leiva MD [address] [facility] [address] [place] [address] Scheduled Discharge Disposition: Discharged to home or [...]
--- OUTSIDE RECORDS SUMMARY | 2023-12-14 21:14 | XMS_ITS | Encounter Summary ---
Author Organization [facility] Address [address] [facility] [address] [place] [address] Care Team Providers Care Cyber Security Consultant Name Role Phone No, Pcp Primary Care Provider [phone] Encounter Details Date Type Department Care Team (Late st Contact Info) Description 09/10/2023 Orders Only [facility] [place] [address] [place] [address] Julito Cortez MD [address] [place] [address] Social History Tobacco Use Types [...] (09/10/2023) Potassium 6.0(H) 3.5 - 5.1 mEq/L [facility] 09/10/2023 09/11/2023 3:3 0 AM CDT Narrative [facility] - 09/11/2023 Unless otherwise specified, test(s) performed at: [facility], [address] [place] [address], [place] [address] PULLEY WORKER: Gurdeep Ricardo M.D., Ph.D For any questions, please call customer service at FREQUENCY:OTHER Resulting Agency Comment Specimen source: Serum us Julito Cortez MD LAB BLOOD ORDERABLES Final Resul t [facility] See order comments or contact performing lab Unknown, [place] documented in this encounter Visit Diagnoses Not on filedocumented in this encounter Care Teams Cyber Security Consultant Relationship Specialty Start Date End Date No, Pcp PCP - General Internal Medicine 09/10/23 documented as of this encounter
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
--- OUTSIDE RECORDS SUMMARY | 2023-12-14 21:14 | XMS_ITS | Encounter Summary ---
Author Organization [facility] Address [address] [place] [address] Care Team Providers Care Machined Parts Metal Sprayer Name Role Phone No, Pcp Primary Care Provider [phone] Encounter Details Date Type Department Care Team (Late st Contact Info) Description 09/27/2023 Orders Only [facility] [address] [place] [address] Julito Cortez MD [address] [place] [address] Social History Tobacco Use Types [...] SPKT/V DAUGIRDAS II (HHD & NXSTAGE) 0.93 [facility] 09/27/2023 09/27/2023 [facility] Ordering Provider LAB BLOOD ORDERABLES Final Result [facility] Contact Performing lab Unknown, [place] * [...] 09/28/2023 Unless otherwise specified, test(s) performed at: [facility], [address] [place] [address], [place] [address] OUTSOLE BEVELER: Gurdeep Ricardo M.D., Ph.D For any questions, [...] ORDERABLES Final Resul t Performing Organization Address [facility] Co de Phone Number [facility] See order comments or contact performing lab Unknown, [place] * (ABNORMAL) POST CHEMISTRY (09/27/2023) BUN Post Dialysis 23(H) 6 - 19 mg/dL [facility] 09/27/2023 09/28/2023 3:1 1 AM CDT Narrative [facility] - 09/28/2023 Unless otherwise specified, test(s) performed at: [facility], [address] [place] [address], [place] [address] OUTSOLE BEVELER: Gurdeep Ricardo M.D., Ph.D For any questions, please call customer service at FREQUENCY:MONTHLY Resulting Agency Comment Specimen source: Plasma Julito Cortez MD LAB BLOOD ORDERABLES Final Resul t Performing Organization Address [facility] de Phone Number [facility] [...] 09/27/2023 09/28/2023 2:5 6 AM CDT Narrative [facility] - 09/28/2023 Unless otherwise specified, test(s) performed at: [facility], [address] [place] [address], [place] [address] OUTSOLE BEVELER: Gurdeep Ricardo M.D., Ph.D For any questions, please call customer service at FREQUENCY:MONTHLY Resulting Agency Comment Specimen source: Serum Julito Cortez MD LAB BLOOD ORDERABLES Final Resul t Performing Organization Address [facility] de Phone Number [facility] See order comments or contact performing lab Unknown, [place] * (ABNORMAL) Spectra Chemistry (09/27/2023) PTH 291(H) 16 - 80 pg/mL [facility] 09/27/2023 09/28/2023 3:0 3 AM CDT Narrative [facility] - 09/28/2023 Unless otherwise specified, test(s) performed at: [facility], [address] [place] [address], [place] [address] OUTSOLE BEVELER: Gurdeep Ricardo M.D., Ph.D For any questions, please call customer service at FREQUENCY:MONTHLY Resulting Agency Comment Specimen source: Plasma us Julito Cortez MD LAB BLOOD ORDERABLES Final Resul t Performing Organization Address [facility] de Phone Number [facility] See order comments or contact performing lab Unknown, [place] documented in this encounter Visit Diagnoses Not on filedocumented in this encounter Care Teams Machined Parts Metal Sprayer Relationship Specialty Start Date End Date No, Pcp PCP - General Internal Medicine 09/10/23 documented as of this encounter
[2023-12-14 21:15] LABS: Albumin* 4.2 g/dL (3.3-5.0); Chloride* 88 mmol/L (96-114)
[2023-12-14 21:16] LABS: Potassium* 4.3 mmol/L (3.6-5.1); Sodium* 129 mmol/L (135-149)
[2023-12-14 21:18] LABS: Alkaline Phosphatase* 127 U/L (40-150); Anion Gap 23 mEq/L (7-15); Aspartate Amino Transferase* 382 U/L (12-35); Bilirubin Direct* 0.7 mg/dL (0.0-0.5); Bilirubin Total* 0.9 mg/dL (0.1-1.5); Blood Urea Nitrogen* 52 mg/dL (5-24); Carbon Dioxide* 18 mmol/L (20-32); Creatinine* 6.5 mg/dL (0.5-1.5); Estimated Glomerular Filt Rate 10 ml/min; Total Protein* 7.7 g/dL (6.0-8.3)
[2023-12-14 21:19] LABS: Calcium* 9.4 mg/dL (8.4-10.6); Glucose* 276 mg/dL (60-115)
[2023-12-14 22:07] LABS: Alanine Aminotransferase* 272 U/L (4-50); Phosphorus* 4.5 mg/dL (2.5-4.5)
[2023-12-14 22:08] LABS: Troponin I* 0.05 ng/mL (0.01-0.04)
== END 2023-12-15 01:05 | disposition other institution (70) ==
PROVIDERS: Emergency Provider Family Medicine; PCP Physician Assistant Medical
DX: D64.9 Anemia, unspecified (principal); R74.01 Elevation of levels of liver transaminase levels; N19 Unspecified kidney failure; I95.9 Hypotension, unspecified
CPT/HCPCS: 36415; 36430; 71045; 80048; 80076; 81001; 84100; 84484; 85025; 86850; 86900; 86901; 86922; 87040; 93005; 94761; 99284; 99285; 99291; P9016

== ENCOUNTER 2023-12-15 00:50 | Outpatient (CLI) | payer MEDICAID, SELFPAY ==
--- OUTSIDE RECORDS SUMMARY | 2023-12-17 19:32 | XMS_ITS | Encounter Summary ---
Author Organization [facility] Address [address] [place] [address] Phone Care Team Providers Care Process Treater Name Role Phone Unavailable Primary Care Provider Unavailabl e Reason for Referral * Consult/Test/Treat (Routine) - New Request Specialty Diagnoses / Procedures Referred By Amanda t Referred To Contact Infectious Diseases / INFECTIOUS DISEASES Diagnoses Pre-transplant evaluation for ESRD (end stage renal disease) Neva Carbajal MBBS [address] [facility] [address] [place] [address] Referral ID Status Reason Start Date Expiration Date V isits Requested Visits Authorized [id number] New Request 11/22/2023 11/22/2024 1 1 Encounter Details Date Type Department Care Team (Late Contact Info) Description 11/22/2023 Orders Only Transplant Program [address] [place] [address] Chinyere Valencia, OLGA LIDIA [facility] [address] [place] [address] Pre-transplant evaluation for ESRD (end stage renal [...] Department Care Team (Late Contact Info) Description 01/01/2024 2:00 PM [employer] Office Visit Transplant Program [address] [place], [place] [address] Ning Leiva MD [address] [address] Scheduled Discharge Disposition: Discharged to home or [...]
--- OUTSIDE RECORDS SUMMARY | 2023-12-17 19:32 | XMS_ITS | Encounter Summary ---
Author Organization [facility] Address [address] [place] [address] Phone Care Team Providers Care Hydrogenation Operator Name Role Phone Unavailable Primary Care Provider Unavailabl e Encounter Details Date Type Department Care Team (Late st Contact Info) Description 11/21/2023 Abstract Transplant Program [address] [place] [phone] [place] [address] Chinyere Valencia RN [facility] [address] [place] [address] Social History Tobacco Use Types Packs/Day Years Used Date Smoking Tobacco: Never Assessed Sex and Gender Information Value Date Recorded Sex Assigned at Not on file Gender Identity Not on file Sexual Orientation Not on file documented as of this encounter Plan of Treatment Upcoming Encounters Date Type Department Care Team (Late st Contact Info) Description 01/01/2024 2:00 PM STONE CUTTER Office Visit Transplant Program [address] [phone] [place] [address] Ning Leiva MD [address] [facility] [address] [place] [address] Scheduled Discharge Disposition: Discharged to home or self care documented as of this encounter Visit Diagnoses Not on filedocumented in this encounter
--- OUTSIDE RECORDS SUMMARY | 2023-12-17 19:32 | XMS_ITS | Clinical Summary ---
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 Last update 07/31/08.[employer] Allergies Active Allergy Reactions Criticality Noted Date [...] to chronic kidney disease, on chronic dialysis ([facility] 10/13/2022 Anxiety 10/13/2022 HTN (hypertension) 09/15/2022 Diabetes mellitus ([facility]) 01/27/2002 Encounters Date Type Department Care Team Description 11/22/2023 Orders Only Transplant Program [address] [place] [address] Chinyere Valencia RN Pre-transplant evaluation for ESRD (end stage renal disease) (Primary Dx) 11/21/2023 Abstract Transplant Program [address] [place] [address] Chinyere Valencia RN 11/20/2023 2:30 PM CDT Nurse Only Transplant Program [address] [place] [address] Neva Carbajal MBBS Rn, [facility]-Pre Recipient Chronic kidney disease (Primary Dx) Discharge Disposition: Discharged to home or self care 11/20/2023 1:30 PM CDT Office Visit Transplant Program [address] [place] [address] Neva Carbajal MBBS Gjesvold, Donna E, RD, LD Encounter for pre-transplant evaluation for kidney transplant (Primary Dx) Discharge Disposition: Discharged to home or self care 11/20/2023 12:29 PM CDT - 11/20/2023 11:59 PM CDT Hospital Encounter [facility]RAY [address] [place] [address] Blayne Quiroz MD Discharge Disposition: Discharged to home or self care 11/20/2023 12:08 PM CDT - 11/20/2023 11:59 PM CDT Hospital Encounter [facility] [address] [place] [address] Blayne Quiroz MD Discharge Disposition: Discharged to home or self care 11/20/2023 9:57 AM CDT - 11/20/2023 11:59 PM CDT Hospital Encounter [facility] EKG [address] [place] [address] Blayne Quiroz MD Gas Distribution And Emergency Clerk, Ekg Discharge Disposition: Discharged to home or self care 11/20/2023 9:55 AM CDT - 11/20/2023 11:59 PM CDT Hospital Encounter [facility] Echo Lab [address] [place] [address] Blayne Quiroz MD Alvarado, Michelle, NUCLEAR ENGINEER Jerel Pena, 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 shop supervisor Disposition: Discharged to home or self care 11/20/2023 Travel 11/01/2023 Documentation Only Transplant Program [address] [place] [address] Williams Lindquist Transplant Line Server 10/03/2023 Documentation Only Transplant Program [address] [place] [address] Williams Lindquist Transplant Line Server 09/26/2023 Abstract Transplant Program [address] [place] [address] Williams Lindquist Transplant Line Server from Last 3 Months Social History Tobacco [...] st Contact Info) Description 01/01/2024 2:00 PM VACUUM SYSTEM TESTER Office Visit Transplant Program [address] [place] [address] Ning Leiva MD [address] [place] [address] Scheduled Discharge Disposition: Discharged to home or [...] Donor, Chagas Screen Non Reactive Non Reactive [employer] Blood 11/20/2023 1:20 PM CDT 11/23/2023 11:23 AM CDT [facility] [employer] [address] [place] [address] * COCCIDIOIDES AB SCREEN WITH REFLEX (11/20/2023 1:20 PM CDT) Coccidioides Antibody Negative Negative [facility] Comment: Repeat testing on a new sample in 2-3 weeks if clinically indicated. ADDITIONAL INFORMATION This test has been modified from the call center operations manager's instructions. Its performance characteristics were determined by [facility] in a manner consistent with CLIA requirements. This test has not been cleared or approved by the U.S. Food and Drug Administration. Test Performed by: [facility] - [address] [address] Cad Designer Drafter: Sawyer Alejandre Ph.D.; CLIA# [id number] Serum 11/20/2023 1:20 PM CDT 11/20/2023 2:24 PM CDT Narrative [facility] - 11/21/2023 8:16 PM CDT Bill to Corporate Kidney Acquisition Account [facility] [address] [place] [address] * (ABNORMAL) QUANTIFERON-TB GOLD PLUS (11/20/2023 1:20 PM CDT) QuantiFERON TB Gold Plus Positive( A) Negative [facility] QFT TB 1 0.19 [facility] QFT TB 2 0.35 [facility] QFT TB MITOGEN 9.94 [facility] QFT NIL 0.06 [facility] Blood 11/20/2023 1:20 PM CDT 11/22/2023 7:34 AM CDT Narrative [facility] - 11/22/2023 10:36 AM CDT Bill to Corporate Kidney Acquisition ??Account [facility] Performing Organization Address City/[facility] Co de Phone Number [facility] [address] [address] * HIV COMBO (11/20/2023 1:20 PM CDT) HIV Antigen-Antibody Nonreactive Nonreactive [facility] Comment:Performance characte ristics have not been established with this test on patients less than 2 years of age. Blood 11/20/2023 1:20 PM CDT 11/20/2023 2:24 PM CDT Narrative [facility] - 11/20/2023 3:20 PM CDT Bill to Corporate Kidney Acquisition Account [facility] Performing Organization Address [facility] Co de Phone Number [facility] [address] [address] * HEPATITIS B CORE TOTAL THEE (11/20/2023 1:20 PM CDT) Pathologist [facility] HBV Core Total Thee Nonreactive Nonreactive [facility] Blood 11/20/2023 1:20 PM CDT 11/20/2023 3:41 PM CDT Narrative [facility] - 11/20/2023 4:11 PM CDT Bill to Corporate Kidney Acquisition Account Neva Carbajal [facility] Performing Organization Address [facility] Co de Phone Number [facility] [address] [address] * (ABNORMAL) CBC WITH PLTS/AUTO DIFF (11/20/2023 1:20 PM CDT) Pathologist [facility] WBC 4.75 4.00 - 10.00 k/cmm [facility] RBC 2.54(L) 4.60 - 6.00 m/cmm [facility] Hgb 8.4(L) 13.1 - 17.5 g/dL [facility] Hematocrit 24.7(L) 40.0 - 51.0 % [facility] MCV 97.2 80.0 - 100.0 fL [facility] MCH 33.1(H) 25.0 - 32.0 pg [facility] MCHC 34.0 31.0 - 36.0 g/dL [facility] RDW 14.5 11.5 - 14.5 % [facility] Plt 92(L) 150 - 400 k/cmm [facility] MPV 11.6 6.5 - 12.5 fL [facility] Automated Abs Neutrophil 3.10 1.70 - 6.50 k/cmm [facility] Comment:Preliminary ANC, Fin al Result to Follow Abs Immature Granulocyte 0.01 0.00 - 0.09 k/cmm [facility] Comment:The Immature Granulo cyte Absolute count contains metamyelocytes and myelocytes. Abs Neutrophil 3.10 1.70 - 6.50 k/cmm [facility] Abs Lymphocyte 1.09 0.80 - 4.00 k/cmm [facility] Abs Monocyte 0.41 0.20 - 1.00 k/cmm [facility] Abs Eosinophil 0.13 0.00 - 0.60 k/cmm [facility] Abs Basophil 0.01 0.00 - 0.20 k/cmm [facility] Blood 11/20/2023 1:20 PM CDT 11/20/2023 2:24 PM CDT Narrative [facility] - 11/20/2023 2:35 PM CDT Bill to Corporate Kidney Acquisition ??Account [facility] [address] [address] * VARICELLA-ZOSTER VIRUS (VZV) ANTIBODY, IGG (11/20/2023 1:20 PM CDT) VZV Ab, IgG Positive [facility] Comment:Positive results ind icate current or past exposure to Varicella-Zoster virus or prior immunization. Blood 11/20/2023 1:20 PM CDT 11/20/2023 2:24 PM CDT Narrative [facility] - 11/21/2023 9:03 AM CDT Bill to Corporate Kidney Acquisition ??Account [facility] Performing Organization Address [facility] Co de Phone Number [facility] [address] [address] * MEASLES VIRUS (RUBEOLA) ANTIBODY, IGG (11/20/2023 1:20 PM CDT) Measles Ab, IgG Index 116.00 AU/ml [facility] Measles Ab, IgG Positive [facility] Comment:Positive results (>= 16.5) indicate current or past exposure to Measles virus or prior immunization. Blood 11/20/2023 1:20 PM CDT 11/20/2023 2:24 PM CDT Narrative [facility] - 11/21/2023 9:03 AM CDT Bill to Corporate Kidney Acquisition ??Account [facility] Performing Organization Address [facility] Co de Phone Number [facility] [address] [address] * RPR SYPHILIS SCREEN (11/20/2023 1:20 PM CDT) Pathologist [facility] RPR Screen Non-Reactive Non-Reacti ve [facility] RPR Titer Not Reflexed [facility] Blood 11/20/2023 1:20 PM CDT 11/21/2023 10:14 AM CDT Narrative [facility] - 11/21/2023 11:32 AM CDT Bill to Corporate Kidney Acquisition ??Account [facility] Performing Organization Address [facility] Co de Phone Number [facility] [address] [address] * PROTHROMBIN (PT) & INR (11/20/2023 1:20 PM CDT) PT 11.6 9.0 - 12.5 sec [facility] INR 1.0 0.8 - 1.1 [facility] Comment: Warfarin Therapeutic Range: Standard Intensity: 2.0 - 3.0 High Intensity: 2.5 - 3.5 Blood 11/20/2023 1:20 PM CDT 11/20/2023 2:25 PM CDT Narrative [facility] - 11/20/2023 2:54 PM CDT Bill to Corporate Kidney Acquisition Account [facility] Performing Organization Address City/[facility]/ZIP Co de Phone Number [facility] [address] [address] * PHOSPHORUS (11/20/2023 1:20 PM CDT) Phosphorus 3.6 2.5 - 4.5 mg/dL [facility] Blood 11/20/2023 1:20 PM CDT 11/20/2023 2:24 PM CDT Narrative [facility] - 11/20/2023 2:49 PM CDT Bill to Corporate Kidney Acquisition ??Account [facility] Performing Organization Address [facility] Co de Phone Number [facility] [address] [address] * HEPATITIS C ANTIBODY (11/20/2023 1:20 PM CDT) Hep C Thee Nonreactive Nonreactive [facility] Comment:Performance characte ristics have not been established with this test on patients less than 10 years of age. Blood 11/20/2023 1:20 PM CDT 11/20/2023 2:24 PM CDT Narrative [facility] - 11/20/2023 3:19 PM CDT Bill to Corporate Kidney Acquisition ??Account [facility] Performing Organization Address City/[facility]/ZIP Co de Phone Number [facility] [address] [address] * HEPATITIS B SURFACE ANTIGEN (11/20/2023 1:20 PM CDT) Pathologist [facility] HBV Surface Ag Nonreactive Nonreactive [facility] Comment: Testing performed at: [facility] [address] [address] Blood 11/20/2023 1:20 PM CDT 11/20/2023 2:24 PM CDT Narrative [facility] - 11/20/2023 3:19 PM CDT Bill to Corporate Kidney Acquisition ??Account [facility] Performing Organization Address [facility] Co de Phone Number [facility] [address] [address] * HEPATITIS B SURFACE ANTIBODY (11/20/2023 1:20 PM CDT) HBsAb Quant 83.42 mIU/ml [facility] Comment: The Hepatitis B Surface Antibody quantitation is greater than or equal to 12.00 mIU/mL. This patient has either had an antibody response to a hepatitis B vaccination, received a transfusion or has recovered from a hepatitis B infection. This patient should be considered immune to hepatitis B. HBsAb Interpretation Reactive [facility] Blood 11/20/2023 1:20 PM CDT 11/20/2023 2:24 PM CDT Narrative [facility] - 11/20/2023 3:19 PM CDT Bill to Corporate Kidney Acquisition ??Account [facility] Performing Organization Address [facility] Co de Phone Number [facility] [address] [address] * GGT (11/20/2023 1:20 PM CDT) GGT 13 10 - 71 IU/L [facility] Blood 11/20/2023 1:20 PM CDT 11/20/2023 2:24 PM CDT Narrative [facility] - 11/20/2023 2:49 PM CDT Bill to Corporate Kidney Acquisition ??Account [facility] Performing Organization Address [facility] Co de Phone Number [facility] [address] [address] * (ABNORMAL) EBV VCA IGG (11/20/2023 1:20 PM CDT) Pathologist [facility] EBV Ab VCA IGG >750.0(H) 0.0 - 21.9 U/mL [facility] [employer] Comment: INTERPRETIVE INFORMATION: Parveen-Monsalve Virus Antibody to ?Viral Capsid Antigen, IgG ??17.9 U/mL or less.......Not Detected ??18.0-21.9 U/mL..........Indeterminate - Repeat testing in ?10-14 days may be helpful. ??22.0 U/mL or greater....Detected Performed By: [facility] [employer] [address] [place] [address] Silver Solderer: Salinas Prajapati MD, PhD CLIA Number: [id number] PARVEEN-MONSALVE VIRUS ANTIBODY TO VIRAL CAPSID ANTIGEN IGG REFERENCE INTERVAL: EFFECTIVE 10/11/09 NEGATIVE: ??17.9 U/ML OR LESS EQUIVOCAL: 18.0 - 21.9 U/ML POSITIVE: ??22.0 U/ML OR GREATER Serum 11/20/2023 1:20 PM CDT 11/20/2023 2:24 PM CDT Narrative [facility] - 11/21/2023 7:21 PM CDT Bill to Corporate Kidney Acquisition ??Account [facility] [employer] [address] [place] [address], * CALCIUM, TOTAL (11/20/2023 1:20 PM CDT) [facility] Calcium 8.6 8.6 - 10.0 mg/dL [facility] Blood 11/20/2023 1:20 PM CDT 11/20/2023 2:24 PM CDT Narrative [facility] - 11/20/2023 2:49 PM CDT Bill to Corporate Kidney Acquisition ??Account [facility] Performing Organization Address [facility] Co de Phone Number [address] [address] * BILIRUBIN, TOTAL (ONLY) (11/20/2023 1:20 PM CDT) Bili Total 0.5 <=1.2 mg/dL [facility] Blood 11/20/2023 1:20 PM CDT 11/20/2023 2:24 PM CDT Narrative [facility] - 11/20/2023 2:49 PM CDT Bill to Corporate Kidney Acquisition ??Account [facility] Performing Organization Address [facility] Co de Phone Number [address] [address] * AST (SGOT) (11/20/2023 1:20 PM CDT) AST(SGOT) 15 5 - 40 IU/L [facility] Blood 11/20/2023 1:20 PM CDT 11/20/2023 2:24 PM CDT Narrative [facility] - 11/20/2023 2:49 PM CDT Bill to Corporate Kidney Acquisition ??Account [facility] Performing Organization Address [facility] Co de Phone Number [address] [address] * PTT (APTT) (11/20/2023 1:20 PM CDT) APTT 33.4 25.0 - 37.0 sec [facility] Blood 11/20/2023 1:20 PM CDT 11/20/2023 2:25 PM CDT Narrative [facility] - 11/20/2023 2:54 PM CDT Bill to Corporate Kidney Acquisition Account [facility] Performing Organization Address [facility]/ZIP Co de Phone Number [facility] [address] [address] * ALT (SGPT) (11/20/2023 1:20 PM CDT) ALT (SGPT) 9 <=41 IU/L [facility] Blood 11/20/2023 1:20 PM CDT 11/20/2023 2:24 PM CDT Narrative [facility] - 11/20/2023 2:49 PM CDT Bill to Corporate Kidney Acquisition ??Account [facility] Performing Organization Address [facility] Co de Phone Number [facility] [address] [address] * ALKALINE PHOSPHATASE (11/20/2023 1:20 PM CDT) Alk Phos 118 40 - 129 IU/L [facility] Comment:No reference range e stablished for patients <18 years old. Blood 11/20/2023 1:20 PM CDT 11/20/2023 2:24 PM CDT Narrative [facility] - 11/20/2023 2:49 PM CDT Bill to Corporate Kidney Acquisition ??Account [facility] Performing Organization Address [facility] Co de Phone Number [facility] [address] [address] * ALBUMIN (11/20/2023 1:20 PM CDT) Albumin 4.3 3.8 - 5.1 g/dL [facility] Blood 11/20/2023 1:20 PM CDT 11/20/2023 2:24 PM CDT Narrative [facility] - 11/20/2023 2:49 PM CDT Bill to Corporate Kidney Acquisition ??Account [facility] Performing Organization Address City/[facility]/ZIP Co de Phone Number [facility] [address] [place] [address] * BLOOD TYPING-ABO/RH (11/20/2023 1:20 PM CDT) ABORHG O POS [facility] Blood 11/20/2023 1:20 PM CDT 11/20/2023 2:29 PM CDT Narrative [facility] - 11/20/2023 3:06 PM CDT Bill to Corporate Kidney Acquisition ??Account [facility] TRANSFUSION SER VICES [facility] [address] [address] * XR CHEST 2 VIEWS PA + [...] ? 67.01 Inches MACO Patient Number ?? [id number] ?Weight ? 205 Pounds Date of ?1980 ? BSA ?2.04 m^2 Age ?43 ? Tape Number: Gender ? Male ? Study Date ? 11/20/2023 10:51 AM Tool Dresser ?MA ? Ordering Provider ??CORBY CARUSO Referring ? Interpreting ? Hue Flynn MD Physician ? Physician ?[id number] Type of Study: Stress procedure: ECH EXERCISE STRESS ECHO, Color Doppler, Spectral Doppler HR: 84 bpmBP: 184/80 mmHg Patient Status: RoutineTechnical Quality: Adequate visualization Study Location: [facility] Medium: DefinROKT. Amount- 0.77 ml Indications Indications for Study: [...] HR: 176 bpm ? HR BP Product: 02368 % of predicted HR: 62 ? Max [...] EMIL Height 67.01 Inches MACO Patient Number [id number] Weight 205 Pounds Date of 1980 BSA 2.04 m^2 Age 43 Tape Number: Gender Male Study Date 11/20/2023 10:51 AM Tool Dresser MA Ordering Provider CORBY CARUSO Referring Interpreting Hue Flynn MD Physician Physician [id number] Type of Study: Stress procedure: ECH EXERCISE [...] Due to poor endocardial definition at baseline, [employer] was used to enhance endocardial definition. Stress Stress Type: Exercise Mal Peak HR: 109 bpm HR Response: Normal Peak BP: 184/71 mmHg BP Response: Normal Predicted HR: 176 bpm HR BP Product: 83162 % of predicted HR: 62 Max Exercise: [...] MD RAD ECHO Performing Organization Address [facility] Co de Phone Number [facility] * EKG ADULT (12-LEAD) (11/20/2023 10:46 AM CDT) 11/20/2023 10:4 6 AM CDT Impressions [facility] EKG ORDERS - 11/20/2023 10:46 AM CDT SINUS RHYTHM NORMAL ECG No previous ECG available for comparison. P-R Interval 174 ms QRS Interval 93 ms QT Interval 367 ms QTC Interval 409 ms P [place] 46 QRS [place] 61 T Wave [place] 68 Narrative Procedure Note Jean Liu MD - 11/20/2023 IMPRESSION SINUS RHYTHM NORMAL ECG No previous ECG available for comparison. P-R Interval 174 ms QRS Interval 93 ms QT Interval 367 ms QTC Interval 409 ms P [place] 46 QRS [place] 61 T Wave [place] 68 Blayne Quiroz MD EKG Performing Organization Address [facility] Phone Number [facility] EKG ORDERS from Last 3 Months CORPORATE,KIDNEY ACQUISITION COST-CURRENT NEW Corporate Other 05/26/2020 Attn Williams Lindquist [facility] [address] [place] [address]
--- OUTSIDE RECORDS SUMMARY | 2023-12-17 19:32 | XMS_ITS | Encounter Summary ---
Author Organization [facility] Address [address] [place] [address] Phone Care Team Providers Care Account Financial Manager Name Role Phone Unavailable Primary Care Provider Unavailabl e Reason for Visit * Prior Authorization (Routine) - Closed Specialty Diagnoses / Procedures Referred By Contac t Referred To Contact CARDIOLOGY ECHO LAB Diagnoses Encounter for other preprocedural examination [facility] Echo and EKG. Diagnoses Pre-Transplant Evaluation For Esrd (End Stage Renal Disease) [Z01.818] Procedures OR ECHO TTHRC R-T 2D W/WO M-MODE REST&STRS CONT ECG OR ECG ROUTINE ECG W/LEAST 12 LDS W/I&R OR ECG ROUTINE ECG W/LEAST 12 LDS TRCG ONLY W/O I&R Echo Lab [address] [facility] [address] [place] [address] Referral ID Status Reason Start Date Expiration Date Visits Re quested Visits Authorized [id number] Closed 2 2 Encounter Details Date Type Department Care Team (Latest Contact Info) Description 11/20/2023 9:57 AM CDT - 11/20/2023 11:59 PM CDT Hospital Encounter [facility] EKG [address] [facility] [address] [place], [place] [address] Blayne Quiroz MD [address] [facility] [place] [address] [place] [address] Process Helper, Ekg [address] [place] [address] Discharge Disposition: Discharged to home or self [...] st Contact Info) Description 01/01/2024 2:00 PM SUPERVISOR PAPER TESTING Office Visit Transplant Program [address] [place] [address] Ning Leiva MD [address] [place] [address] Scheduled Discharge Disposition: Discharged to home or self care documented as of this encounter Procedures Procedure Name Priority Date/Time Associated Diagnosis Comments EKG ADULT (12-LEAD) Routine 11/20/2023 1 0:46 AM CDT Pre-transplant evaluation for ESRD (end stage renal disease) documented in this encounter Results * EKG ADULT (12-LEAD) (11/20/2023 10:46 AM CDT) 11/20/2023 10:4 6 AM CDT Impressions [facility] E[facility] ORDERS - 11/20/2023 10:46 AM CDT SINUS RHYTHM NORMAL ECG No previous ECG available for comparison. P-R Interval 174 ms QRS Interval 93 ms QT Interval 367 ms QTC Interval 409 ms P [place] 46 QRS [place] 61 T Wave [place] 68 Narrative Procedure Note Jean Liu MD - 11/20/2023 IMPRESSION SINUS RHYTHM NORMAL ECG No previous ECG available for comparison. P-R Interval 174 ms QRS Interval 93 ms QT Interval 367 ms QTC Interval 409 ms P [place] 46 QRS [place] 61 T Wave [place] 68 Blayne Quiroz MD EKG [facility] E[facility] ORDERS documented in this encounter Visit Diagnoses Diagnosis Pre-transplant evaluation for ESRD (end stage renal disease) Other specified pre-operative examination documented in this encounter
--- OUTSIDE RECORDS SUMMARY | 2023-12-17 19:32 | XMS_ITS | Referral Summary ---
Author Organization [facility] Address [address] [place] [address] Phone Care Team Providers Care Windlace Machine Operator Name Role Phone Unavailable Primary Care Provider Unavailabl e Source Comments [employer] is fully rolled out on [employer]. Last update 07/31/08.[email or web address] Encounters Date Type Department Care Team Description 11/22/2023 Orders Only Transplant Program [address] [place] [address] Chinyere Valencia, OLGA LIDIA Pre-transplant evaluation for ESRD (end stage renal disease) (Primary Dx) 11/21/2023 Abstract Transplant Program [address] [place] [address] Chinyere Valencia RN 11/20/2023 9:57 AM CDT - 11/20/2023 11:59 PM CDT Hospital Encounter [facility] EKG [address] [place] [address] Blayne Quiroz MD Him Manager, Ekg Discharge Disposition: Discharged to home or self care 11/20/2023 Travel 11/20/2023 2:30 PM CDT Nurse Only Transplant Program [address] [place] [address] Neva Carbajal MBBS Rn, [facility]-Pre Recipient Chronic kidney disease (Primary Dx) Discharge Disposition: Discharged to home or self care 11/20/2023 1:30 PM CDT Office Visit Transplant Program [address] [place] [address] Neva Carbajal MBBS Gjesvold, Donna E, RD, LD Encounter for pre-transplant evaluation for kidney transplant (Primary Dx) Discharge Disposition: Discharged to home or self care 11/20/2023 12:29 PM CDT - 11/20/2023 11:59 PM CDT Hospital Encounter [facility] XRAY [address] [place] [address] Blayne Quiroz MD Discharge Disposition: Discharged to home or self care 11/20/2023 12:08 PM CDT - 11/20/2023 11:59 PM CDT Hospital Encounter [facility] CT [address] [place] [address] Blayne Quiroz MD Discharge Disposition: Discharged to home or self care 11/20/2023 9:55 AM CDT - 11/20/2023 11:59 PM CDT Hospital Encounter [facility] Echo Lab [address] [place] [address] Blayne Quiroz MD Alvarado, Michelle, CLINICAL MEDICAL ASSISTANT Jerel Pena, rug setter velvet Disposition: Discharged to home or self care 11/01/2023 Documentation Only Transplant Program [address] [place] [address] Williams Lindquist Transplant Claims Investigator 10/03/2023 Documentation Only Transplant Program [address] [place] [address] Williams Lindquist Transplant Claims Investigator 09/26/2023 Abstract Transplant Program [address] [place] [address] Williams Lindquist Transplant Claims Investigator from Last 3 Months Allergies Active Allergy [...] to chronic kidney disease, on chronic dialysis ([facility]) 10/13/2022 Anxiety 10/13/2022 HTN (hypertension) 09/15/2022 Diabetes mellitus ([facility]) 01/27/2002 Social History Tobacco Use Types [...] st Contact Info) Description 01/01/2024 2:00 PM SATELLITE DISH REPAIRER Office Visit Transplant Program [address] [place] [address] Ning Leiva MD [address] [place] [address] Scheduled Discharge Disposition: Discharged to home or [...] Donor, Chagas Screen Non Reactive Non Reactive weendy Blood 11/20/2023 1:20 PM CDT 11/23/2023 11:23 AM CDT [facility] Performing Organization Address City/[facility]/ZIP Co de Phone Number weendy [address] [place] [address] * COCCIDIOIDES AB SCREEN WITH REFLEX (11/20/2023 1:20 PM CDT) Coccidioides Antibody Negative Negative [facility] [employer] [facility] Comment: Repeat testing on a new sample in 2-3 weeks if clinically indicated. ADDITIONAL INFORMATION This test has been modified from the senior investment manager's instructions. Its performance characteristics were determined by [facility] in a manner consistent with CLIA requirements. This test has not been cleared or approved by the U.S. Food and Drug Administration. Test Performed by: [facility] - [address] [address] Stonecutter: Sawyer Alejandre Ph.D.; CLIA# [id number] Serum 11/20/2023 1:20 PM CDT 11/20/2023 2:24 PM CDT Narrative [facility] [employer] [place] [employer] [facility] - 11/21/2023 8:16 PM CDT Bill to Corporate Kidney Acquisition Account [facility] [employer] [place] [address] [facility] [address] [place] [address] * (ABNORMAL) QUANTIFERON-TB GOLD PLUS (11/20/2023 1:20 PM CDT) QuantiFERON TB Gold Plus Positive( A) Negative [facility] QFT TB 1 0.19 [facility] QFT TB 2 0.35 [facility] QFT TB MITOGEN 9.94 [facility] QFT NIL 0.06 [facility] Blood 11/20/2023 1:20 PM CDT 11/22/2023 7:34 AM CDT Narrative [facility] - 11/22/2023 10:36 AM CDT Bill to Corporate Kidney Acquisition ??Account [facility] [address] [address] * HIV COMBO (11/20/2023 1:20 PM CDT) Pathologist [facility] HIV Antigen-Antibody Nonreactive Nonreactive [facility] Comment:Performance characte ristics have not been established with this test on patients less than 2 years of age. Blood 11/20/2023 1:20 PM CDT 11/20/2023 2:24 PM CDT Narrative [facility] - 11/20/2023 3:20 PM CDT Bill to Corporate Kidney Acquisition Account [facility] [address] [address] * HEPATITIS B CORE TOTAL THEE (11/20/2023 1:20 PM CDT) HBV Core Total Thee Nonreactive Nonreactive [facility] Blood 11/20/2023 1:20 PM CDT 11/20/2023 3:41 PM CDT Narrative [facility] - 11/20/2023 4:11 PM CDT Bill to Corporate Kidney Acquisition Account [facility] [address] [address] * (ABNORMAL) CBC WITH PLTS/AUTO DIFF (11/20/2023 1:20 PM CDT) WBC 4.75 4.00 - 10.00 k/cmm [facility] RBC 2.54(L) 4.60 - 6.00 m/cmm [facility] Hgb 8.4(L) 13.1 - 17.5 g/dL [facility] Hematocrit 24.7(L) 40.0 - 51.0 % [facility] MCV 97.2 80.0 - 100.0 fL [facility] MCH 33.1(H) 25.0 - 32.0 pg [facility] MCHC 34.0 31.0 - 36.0 g/dL [facility] RDW 14.5 11.5 - 14.5 % [facility] Plt 92(L) 150 - 400 k/cmm [facility] MPV 11.6 6.5 - 12.5 fL [facility] Automated Abs Neutrophil 3.10 1.70 - 6.50 k/cmm [facility] Comment:Preliminary ANC, Fin al Result to Follow Abs Immature Granulocyte 0.01 0.00 - 0.09 k/cmm [facility] Comment:The Immature Granulo cyte Absolute count contains metamyelocytes and myelocytes. Abs Neutrophil 3.10 1.70 - 6.50 k/cmm [facility] Abs Lymphocyte 1.09 0.80 - 4.00 k/cmm [facility] Abs Monocyte 0.41 0.20 - 1.00 k/cmm [facility] Abs Eosinophil 0.13 0.00 - 0.60 k/cmm [facility] Abs Basophil 0.01 0.00 - 0.20 k/cmm [facility] Blood 11/20/2023 1:20 PM CDT 11/20/2023 2:24 PM CDT Narrative [facility] - 11/20/2023 2:35 PM CDT Bill to Corporate Kidney Acquisition ??Account [facility] [address] [address] * VARICELLA-ZOSTER VIRUS (VZV) ANTIBODY, IGG (11/20/2023 1:20 PM CDT) VZV Ab, IgG Positive [facility] Comment:Positive results ind icate current or past exposure to Varicella-Zoster virus or prior immunization. Blood 11/20/2023 1:20 PM CDT 11/20/2023 2:24 PM CDT Narrative [facility] - 11/21/2023 9:03 AM CDT Bill to Corporate Kidney Acquisition ??Account [facility] Performing Organization Address [facility] Co de Phone Number [facility] [address] [address] * MEASLES VIRUS (RUBEOLA) ANTIBODY, IGG (11/20/2023 1:20 PM CDT) Measles Ab, IgG Index 116.00 AU/ml [facility] Measles Ab, IgG Positive [facility] Comment:Positive results (>= 16.5) indicate current or past exposure to Measles virus or prior immunization. Blood 11/20/2023 1:20 PM CDT 11/20/2023 2:24 PM CDT Narrative [facility] - 11/21/2023 9:03 AM CDT Bill to Corporate Kidney Acquisition ??Account [facility] Performing Organization Address City/[facility]/ZIP Co de Phone Number [facility] [address] [address] * RPR SYPHILIS SCREEN (11/20/2023 1:20 PM CDT) RPR Screen Non-Reactive Non-Reacti ve [facility] RPR Titer Not Reflexed [facility] Blood 11/20/2023 1:20 PM CDT 11/21/2023 10:14 AM CDT Narrative [facility] - 11/21/2023 11:32 AM CDT Bill to Corporate Kidney Acquisition ??Account Neva Jangmeenu [facility] Performing Organization Address City/[facility] Co de Phone Number [facility] [address] [address] * PROTHROMBIN (PT) & INR (11/20/2023 1:20 PM CDT) PT 11.6 9.0 - 12.5 sec [facility] INR 1.0 0.8 - 1.1 [facility] Comment: Warfarin Therapeutic Range: Standard Intensity: 2.0 - 3.0 High Intensity: 2.5 - 3.5 Blood 11/20/2023 1:20 PM CDT 11/20/2023 2:25 PM CDT Narrative [facility] - 11/20/2023 2:54 PM CDT Bill to Corporate Kidney Acquisition Account Neva Carbajal [facility] Performing Organization Address [facility] Co de Phone Number [facility] [address] [address] * PHOSPHORUS (11/20/2023 1:20 PM CDT) Pathologist [facility] Phosphorus 3.6 2.5 - 4.5 mg/dL [facility] Blood 11/20/2023 1:20 PM CDT 11/20/2023 2:24 PM CDT Narrative [facility] - 11/20/2023 2:49 PM CDT Bill to Corporate Kidney Acquisition ??Account Nevauziel Jangmeenu [facility] Performing Organization Address City/[facility] Co de Phone Number [facility] [address] [address] * HEPATITIS C ANTIBODY (11/20/2023 1:20 PM CDT) Hep C Thee Nonreactive Nonreactive [facility] Comment:Performance characte ristics have not been established with this test on patients less than 10 years of age. Blood 11/20/2023 1:20 PM CDT 11/20/2023 2:24 PM CDT Narrative [facility] - 11/20/2023 3:19 PM CDT Bill to Corporate Kidney Acquisition ??Account [facility] Performing Organization Address City/[facility]/ZIP Co de Phone Number [facility] [address] [address] * HEPATITIS B SURFACE ANTIGEN (11/20/2023 1:20 PM CDT) HBV Surface Ag Nonreactive Nonreactive [facility] Comment: Testing performed at: [facility] [address] [address] Blood 11/20/2023 1:20 PM CDT 11/20/2023 2:24 PM CDT Narrative [facility] - 11/20/2023 3:19 PM CDT Bill to Corporate Kidney Acquisition ??Account [facility] Performing Organization Address [facility] Co de Phone Number [facility] [address] [address] * HEPATITIS B SURFACE ANTIBODY (11/20/2023 1:20 PM CDT) Pathologist [facility] HBsAb Quant 83.42 mIU/ml [facility] Comment: The Hepatitis B Surface Antibody quantitation is greater than or equal to 12.00 mIU/mL. This patient has either had an antibody response to a hepatitis B vaccination, received a transfusion or has recovered from a hepatitis B infection. This patient should be considered immune to hepatitis B. HBsAb Interpretation Reactive [facility] Blood 11/20/2023 1:20 PM CDT 11/20/2023 2:24 PM CDT Narrative [facility] - 11/20/2023 3:19 PM CDT Bill to Corporate Kidney Acquisition ??Account [facility] Performing Organization Address City/[facility] Co de Phone Number [facility] [address] [address] * GGT (11/20/2023 1:20 PM CDT) Pathologist [facility] GGT 13 10 - 71 IU/L [facility] Blood 11/20/2023 1:20 PM CDT 11/20/2023 2:24 PM CDT Narrative [facility] - 11/20/2023 2:49 PM CDT Bill to Corporate Kidney Acquisition ??Account [facility] [address] [address] * (ABNORMAL) EBV VCA IGG (11/20/2023 1:20 PM CDT) [facility] EBV Ab VCA IGG >750.0(H) 0.0 - 21.9 U/mL [employer] Comment: INTERPRETIVE INFORMATION: Parveen-Monsalve Virus Antibody to ?Viral Capsid Antigen, IgG ??17.9 U/mL or less.......Not Detected ??18.0-21.9 U/mL..........Indeterminate - Repeat testing in ?10-14 days may be helpful. ??22.0 U/mL or greater....Detected Performed By: [facility] [address] [place] [id number] Cat Scan Tech: Salinas Prajapati MD, PhD CLIA Number: [id number] PARVEEN-MONSALVE VIRUS ANTIBODY TO VIRAL CAPSID ANTIGEN IGG REFERENCE INTERVAL: EFFECTIVE 10/11/09 NEGATIVE: ??17.9 U/ML OR LESS EQUIVOCAL: 18.0 - 21.9 U/ML POSITIVE: ??22.0 U/ML OR GREATER Serum 11/20/2023 1:20 PM CDT 11/20/2023 2:24 PM CDT Narrative [facility] - 11/21/2023 7:21 PM CDT Bill to Corporate Kidney Acquisition ??Account [facility] [employer] [address] [place] [address], * CALCIUM, TOTAL (11/20/2023 1:20 PM CDT) Calcium 8.6 8.6 - 10.0 mg/dL [facility] Blood 11/20/2023 1:20 PM CDT 11/20/2023 2:24 PM CDT Narrative [facility] - 11/20/2023 2:49 PM CDT Bill to Corporate Kidney Acquisition ??Account [facility] Performing Organization Address City/[facility]/ZIP Co de Phone Number [facility] [address] [address] * BILIRUBIN, TOTAL (ONLY) (11/20/2023 1:20 PM CDT) Bili Total 0.5 <=1.2 mg/dL [facility] Blood 11/20/2023 1:20 PM CDT 11/20/2023 2:24 PM CDT Narrative [facility] - 11/20/2023 2:49 PM CDT Bill to Corporate Kidney Acquisition ??Account [facility] Performing Organization Address [facility]/ZIP Co de Phone Number [facility] [address] [address] * AST (SGOT) (11/20/2023 1:20 PM CDT) AST(SGOT) 15 5 - 40 IU/L [facility] Blood 11/20/2023 1:20 PM CDT 11/20/2023 2:24 PM CDT Narrative [facility] - 11/20/2023 2:49 PM CDT Bill to Corporate Kidney Acquisition ??Account [facility] [address] [address] * PTT (APTT) (11/20/2023 1:20 PM CDT) APTT 33.4 25.0 - 37.0 sec [facility] Blood 11/20/2023 1:20 PM CDT 11/20/2023 2:25 PM CDT Narrative [facility] - 11/20/2023 2:54 PM CDT Bill to Corporate Kidney Acquisition Account [facility] [address] [address] * ALT (SGPT) (11/20/2023 1:20 PM CDT) ALT (SGPT) 9 <=41 IU/L [facility] Blood 11/20/2023 1:20 PM CDT 11/20/2023 2:24 PM CDT Narrative [facility] - 11/20/2023 2:49 PM CDT Bill to Corporate Kidney Acquisition ??Account [facility] Performing Organization Address City/[facility]/ZIP Co de Phone Number [facility] [address] [address] * ALKALINE PHOSPHATASE (11/20/2023 1:20 PM CDT) Alk Phos 118 40 - 129 IU/L [facility] Comment:No reference range e stablished for patients <18 years old. Blood 11/20/2023 1:20 PM CDT 11/20/2023 2:24 PM CDT Narrative [facility] - 11/20/2023 2:49 PM CDT Bill to Corporate Kidney Acquisition ??Account [facility] [address] [address] * ALBUMIN (11/20/2023 1:20 PM CDT) Albumin 4.3 3.8 - 5.1 g/dL [facility] Blood 11/20/2023 1:20 PM CDT 11/20/2023 2:24 PM CDT Narrative [facility] - 11/20/2023 2:49 PM CDT Bill to Corporate Kidney Acquisition ??Account [facility] Performing Organization Address City/[facility]/ZIP Co de Phone Number [facility] [address] [address] * BLOOD TYPING-ABO/RH (11/20/2023 1:20 PM CDT) ABORHG O POS [facility] Blood 11/20/2023 1:20 PM CDT 11/20/2023 2:29 PM CDT Narrative [facility] - 11/20/2023 3:06 PM CDT Bill to Corporate Kidney Acquisition ??Account [facility]a [facility] TRANSFUSION SER VICES Performing Organization Address [facility] Co de Phone Number [address] [address] * XR CHEST 2 VIEWS PA + [...] ? 67.01 Inches MACO Patient Number ?? [id number] ?Weight ? 205 Pounds Date of ?1980 ? BSA ?2.04 m^2 Age ?43 ? Tape Number: Gender ? Male ? Study Date ? 11/20/2023 10:51 AM Marine Engine Driver ?MA ? Ordering Provider ??CORBY CARUSO Referring ? Interpreting ? Hue Flynn MD Physician ? Physician ?[id number] Type of Study: Stress procedure: ECH EXERCISE [...] HR: 176 bpm ? HR BP Product: 27384 % of predicted HR: 62 ? Max [...] VINAY Height 67.01 Inches MACO Patient Number [id number] Weight 205 Pounds Date of 1980 BSA 2.04 m^2 Age 43 Tape Number: Gender Male Study Date 11/20/2023 10:51 AM Marine Engine Driver PEDRO Ordering Provider CORBY CARUSO Referring Interpreting Hue Flynn MD Physician Physician [id number] Type of Study: Stress procedure: ECH EXERCISE [...] Predicted HR: 176 bpm HR BP Product: 33340 % of predicted HR: 62 Max Exercise: [...] Quiroz MD RAD ECHO Performing Organization Address [facility] de Phone Number [facility] * EKG ADULT (12-LEAD) (11/20/2023 10:46 AM CDT) 11/20/2023 10:4 6 AM CDT Impressions [facility] CVIS EKG ORDERS - 11/20/2023 10:46 AM CDT SINUS RHYTHM NORMAL ECG No previous ECG available for comparison. P-R Interval 174 ms QRS Interval 93 ms QT Interval 367 ms QTC Interval 409 ms P Bell 46 QRS Bell 61 T Wave Bell 68 Narrative Procedure Note Jean Liu MD - 11/20/2023 IMPRESSION SINUS RHYTHM NORMAL ECG No previous ECG available for comparison. P-R Interval 174 ms QRS Interval 93 ms QT Interval 367 ms QTC Interval 409 ms P Bell 46 QRS Bell 61 T Wave Bell 68 Blayne Quiroz MD EKG Performing Organization Address [facility] Co de Phone Number [facility] CVIS EKG ORDERS from Last 3 Months CORPORATE,KIDNEY ACQUISITION COST-CURRENT NEW Corporate Other 05/26/2020 Attn Williams Lindquist [facility] [address] [place] [address]
--- OUTSIDE RECORDS SUMMARY | 2023-12-17 19:32 | XMS_ITS ---
Author Name Krystian, Clinic Address [address] [place] [address] Phone [phone] Organization [facility] e, NA DOCUMENT DISCLAIMER Multiple document versions may exist, please be sure you review the latest version. The information in the [facility] Continuity of Care [...] 29, 2023 Frequency 4X Week [facility]Cartridge CAR 172 Therapy Fluid (dialysate) 2.0 [...]
--- OUTSIDE RECORDS SUMMARY | 2023-12-17 19:32 | XMS_ITS | Encounter Summary ---
Author Organization [facility] Address [address] [place] [address] Phone Care Team Providers Care Supervisor Pyrotechnic Loading Name Role Phone Unavailable Primary Care [...] st Contact Info) Description 01/01/2024 2:00 PM SALES REPRESENTATIVE DOOR TO DOOR Office Visit Transplant Program [address] [facility] [address] [place] [address] Ning Leiva MD [address] [place] [address] Scheduled Discharge Disposition: Discharged to home or self care documented as of this encounter Visit Diagnoses Not on filedocumented in this encounter
--- OUTSIDE RECORDS SUMMARY | 2023-12-17 19:33 | XMS_ITS | Encounter Summary ---
Author Organization [facility] Address [address] [place] [address] Care Team Providers Care Physician/Internist Name Role Phone No, Pcp Primary Care Provider [phone] Encounter Details Date Type Department Care Team (Late st Contact Info) Description 11/22/2023 Orders Only [facility] [address] [place] [address] Julito Cortez MD [address] [place] [address] Social History Tobacco Use Types [...] (11/22/2023) Potassium 5.4(H) 3.5 - 5.1 mEq/L [facility] 11/22/2023 11/23/2023 7:1 8 AM CDT Narrative [facility] - 11/23/2023 Unless otherwise specified, test(s) performed at: [facility], [address] [place] [address], [place] [address] GROUP EXERCISE MANAGER: Gurdeep Ricardo M.D., Ph.D For any questions, please call customer service at FREQUENCY:OTHER Resulting Agency Comment Specimen source: Serum us Julito Cortez MD LAB BLOOD ORDERABLES Final Resul t [facility] See order comments or contact performing lab Unknown, [place] documented in this encounter Visit Diagnoses Not on filedocumented in this encounter Care Teams Physician/Internist Relationship Specialty Start Date End Date No, Pcp PCP - General Internal Medicine 09/10/23 documented as of this encounter
--- OUTSIDE RECORDS SUMMARY | 2023-12-17 19:33 | XMS_ITS ---
Author Organization [facility] [place] Address [address] [place] [id number] Phone Care Team Providers Care Client Advocate Name Role Phone Unavailable Primary Care Provider Unavailabl e Transplant Episode Kidney Candidate [facility] ([place], [place]) - [facility] Evaluation began on 11/20/2023 Marked as Active on 11/20/2023 Kidney CoordinatorChinyere Valencia RN Phone: N/A Fax: N/A Email: N/A Care Team Name Role Phone Fax Email Chinyere Valencia RN Kidney Coordinator N/A N/A N/A Jean Ochoa DO TXP Info Surgeon [phone] N/A Julito Cortez MD Farm General Manager Referring Farm General Manager Referring Provider [phone] N/A Kidney Spec Neph[facility] Referring Nephrology Group [facility] Nephrology Group N/A N/A N/A Chinyere Valencia RN TXP Pre Coordinator N/A N/A N/A Events Pre-Transplant Referred: 05/11/2023 Evaluation began: 11/20/2023 Committee: 07/20/2023 Appointments (11/17/2023 - 01/17/2024) When With Description 11/20/2023 Transplant - Kamala Simental Chronic kidne y disease (Primary Dx) 11/20/2023 Transplant - Stacia Goode Encount er for pre-transplant evaluation for kidney transplant (Primary Dx) 01/01/2024 Transplant - Jessi Leiva Sche duled Dialysis History Dialysis History Start End Type Comments Center Home Hemodialysis [facility] D[facility] Information Center Phone Fax Address [facility] [phone] [facility] [address]
--- OUTSIDE RECORDS SUMMARY | 2023-12-17 19:33 | XMS_ITS | Encounter Summary ---
Author Organization [facility] Address [address] [place] [address] Phone Care Team Providers Care District Medical Examiner Name Role Phone Unavailable Primary Care Provider Unavailabl e Encounter Details Date Type Department Care Team (Late st Contact Info) Description 04/25/2023 Abstract Transplant Program [address] [place] [address] Williams Lindquist, Transplant Director Of Residence Life [address] [place] [id number] Social History Tobacco Use Types Packs/Day Years Used Date Smoking Tobacco: Never Assessed Sex and Gender Information Value Date Recorded Sex Assigned at Not on file Gender Identity Not on file Sexual Orientation Not on file documented as of this encounter Plan of Treatment Upcoming Encounters Date Type Department Care Team (Late st Contact Info) Description 01/01/2024 2:00 PM GENERAL INTERNAL MEDICINE PHYSICIAN Office Visit Transplant Program [address] [place] [address] Ning Leiva MD [address] [facility] [address] [place] [address] Scheduled Discharge Disposition: Discharged to home or self care documented as of this encounter Visit Diagnoses Not on filedocumented in this encounter
--- OUTSIDE RECORDS SUMMARY | 2023-12-17 19:33 | XMS_ITS | Encounter Summary ---
Author Organization [facility] Address [address] [place] [address] Phone Care Team Providers Care Financial Institution Treasurer Name Role Phone Unavailable Primary Care Provider Unavailabl e Reason for Visit * Prior Authorization (Routine) - Closed Specialty Diagnoses / Procedures Referred By Contac t Referred To Contact CARDIOLOGY ECHO LAB Diagnoses Encounter for other preprocedural examination KIDA Echo and EKG. Diagnoses Pre-Transplant Evaluation For Esrd (End Stage Renal Disease) [Z01.818] Procedures [place] ECHO TTHRC R-T 2D W/WO M-MODE REST&STRS CONT ECG [place] ECG ROUTINE ECG W/LEAST 12 LDS W/I&R [place] ECG ROUTINE ECG W/LEAST 12 LDS TRCG ONLY W/O I&R Echo Lab [address] [facility] [place] [address] Referral ID Status Reason Start Date Expiration Date Visits Re quested Visits Authorized [id number] Closed 2 2 Encounter Details Date Type Department Care Team (Latest Contact Info) Description 11/20/2023 9:55 AM CDT - 11/20/2023 11:59 PM T Hospital Encounter [facility] [address] [facility] [address] [place] [address] Blayne Quiroz MD [address] [address] Hue Padilla, RATNA [address] [place] [address] Jerel Pena, RN [address] [place] [address] Discharge Disposition: Discharged to home [...] st Contact Info) Description 01/01/2024 2:00 PM APPLICATION PENETRATION TESTER Office Visit Transplant Program [address] [place] [address] Ning Leiva MD [address] [place] [place] [address] Scheduled Discharge Disposition: Discharged to home or [...] ? 67.01 Inches JESSICA Patient Number ?? [id number] ?Weight ? 205 Pounds Date of ?1980 ? BSA ?2.04 m^2 Age ?43 ? Tape Number: Gender ? Male ? Study Date ? 11/20/2023 10:51 AM Paint Booth Operator ?MA ? Ordering Provider ??CORBY CARUSO Referring ? Interpreting ? Hue Flynn MD Physician ? Physician ?[id number] Type of Study: Stress procedure: ECH EXERCISE [...] HR: 176 bpm ? HR BP Product: 09784 % of predicted HR: 62 ? Max [...] VINAY Height 67.01 Inches JESSICA Patient Number [id number] Weight 205 Pounds Date of 1980 BSA 2.04 m^2 Age 43 Tape Number: Gender Male Study Date 11/20/2023 10:51 AM Paint Booth Operator [place] Ordering Provider CORBY CARUSO Referring Interpreting Hue Flynn MD Physician Physician [id number] Type of Study: Stress procedure: ECH EXERCISE [...] Predicted HR: 176 bpm HR BP Product: 13851 % of predicted HR: 62 Max Exercise: [...] improved withstress. Blayne Quiroz MD RAD ECHO [facility] documented in this encounter Visit Diagnoses [...]
--- OUTSIDE RECORDS SUMMARY | 2023-12-17 19:33 | XMS_ITS | Encounter Summary ---
Author Organization [facility] Address [address] [facility] [facility] [address] Phone Care Team Providers Care Review Rn Name Role Phone Unavailable Primary Care Provider Unavailabl e Reason for Visit * Reason Comments Pre Kidney Transplant Evaluation Encounter Details Date Type Department Care Team (Late st Contact Info) Description 11/20/2023 2:30 PM CDT Nurse Only Transplant Program [address] [facility] [facility] [address] [place], [place] [id number] Neva Carbajal MBBS [address] [facility] [address] [place], [place] [id number] RnCali-Pre Recipient Chronic kidney disease (Primary Dx) [...] and have labs drawn. Also meeting with rug repairer. Discussed when labs results would be returned. Chinyere Valencia RN, 11/20/2023 2:25 PM documented in this encounter Miscellaneous Notes * Transplant Care Plan - Chinyere Valencia RN - 11/20/2023 2:30 PM CDT Transplant-Recipient Plan Transplant-Pre Care Plan Maco Stein Recipient Care Plan Pretransplant I) Referral received by corporate statistical financial analyst from Nephrologists, dialysis unit or patient. II) Patient scheduled to attend information session. III) Patient attends information session which includes Crusher Machine Operator, Transplant Sign Letterer, Seed Packer, Living Donor Coordinator, Transplant Surgeon, Public Relations Manager, and Accountant Machine Processing Discussed the following with potential transplant candidate and their family members: IV) A) Advantages and disadvantages of transplant V) B) Possible complications post transplant ) C)Medications and their side effects VII) D) Hospitalization and frequency of clinic visits post-op VIII) E) Requirement that all out-of-town patients remain in [facility] for at least 2 weeks post-op, typically [...] waitlisted, patient's name is placed on the [facility] kidney donor waitlist. Patient notification letter sent and if patient is predialysis arrangements are made for ALA levels to be drawn 2. Patient's Accountant Machine Processing notified 3. Patient's dialysis unit notified and [...] 2. Patient notification letter sent. 3. Patient???s Accountant Machine Processing notified 4. Patient???s dialysis unit notified Transplant-Recipient Plan Transplant-Pre Care Plan Maco Stein WAITLIST MANAGEMENT I) Monthly Updates a. Brief summary of patient's transplant status sent out by the Transplant Clinic monthly to the dialysis unit or if predialysis to the Accountant Machine Processing. II) Semiannual Check Calls Patient contacted by phone by transplant steam box hand to verify current: contact information, insurance, health [...] st Contact Info) Description 01/01/2024 2:00 PM REFRIGERATION UNIT REPAIRER Office Visit Transplant Program [address] [place] [address] Ning Leiva MD [address] [place] [address] Scheduled Discharge Disposition: Discharged to home or [...] * DONOR,CHAGAS SCREEN (11/20/2023 1:20 PM CDT) Pathologist [facility] Donor, Chagas Screen Non Reactive Non Reactive [facility] Blood 11/20/2023 1:20 PM CDT 11/23/2023 11:23 AM CDT [facility] [address] [place] [address] * COCCIDIOIDES AB SCREEN WITH REFLEX (11/20/2023 1:20 PM CDT) Pathologist [facility] Coccidioides Antibody Negative Negative [facility] [address] [facility] Comment: Repeat testing on a new sample in 2-3 weeks if clinically indicated. ADDITIONAL INFORMATION This test has been modified from the plant worker's instructions. Its performance characteristics were determined by [facility] in a manner consistent with CLIA requirements. This test has not been cleared or approved by the U.S. Food and Drug Administration. Test Performed by: [facility] - [address] [address] Bolt Sorter: Sawyer Alejandre Ph.D.; CLIA# [id number] Serum 11/20/2023 1:20 PM CDT 11/20/2023 2:24 PM CDT Narrative [facility] - 11/21/2023 8:16 PM CDT Bill to Corporate Kidney Acquisition Account [facility] [address] [address] * (ABNORMAL) QUANTIFERON-TB GOLD PLUS (11/20/2023 1:20 PM CDT) QuantiFERON TB Gold Plus Positive( A) Negative [facility] QFT TB [address] [facility] QFT TB [address] [facility] QFT TB MITOGEN 9.94 [facility] QFT NIL 0.06 [facility] Blood 11/20/2023 1:20 PM CDT 11/22/2023 7:[address] [facility] - 11/22/2023 10:36 AM CDT Bill to Corporate Kidney Acquisition ??Account Neva [facility] [address] [address] * HEPATITIS B CORE TOTAL BHAKTI (11/20/2023 1:20 PM CDT) Pathologist [facility] HBV Core Total Bhakti Nonreactive Nonreactive [facility] Blood 11/20/2023 1:20 PM CDT 11/20/2023 3:[address] [facility] - 11/20/2023 4:11 PM CDT Bill to Corporate Kidney Acquisition Account Nevauziel Jangmeenu [facility] Performing Organization Address [facility] de Phone Number [facility] [address] [address] * MEASLES VIRUS (RUBEOLA) ANTIBODY, IGG (11/20/2023 1:20 PM CDT) Measles Ab, IgG Index 116.00 AU/ml [facility] Measles Ab, IgG Positive [facility] Comment:Positive results (>= 16.5) indicate current or past exposure to Measles virus or prior immunization. Blood 11/20/2023 1:20 PM CDT 11/20/2023 2:[address] [facility] - 11/21/2023 9:03 AM CDT Bill to Corporate Kidney Acquisition ??Account Neva Carbajal [facility] Performing Organization Address [facility] de Phone Number [facility] [address] [address] * RPR SYPHILIS SCREEN (11/20/2023 1:20 PM CDT) [facility] RPR Screen Non-Reactive Non-Reacti ve [facility] RPR Titer Not Reflexed [facility] Blood 11/20/2023 1:20 PM CDT 11/21/2023 10:[address] [facility] - 11/21/2023 11:32 AM CDT Bill to Corporate Kidney Acquisition ??Account [facility] Performing Organization Address [facility] de Phone Number [facility] [address] [address] * (ABNORMAL) EBV VCA IGG (11/20/2023 1:20 PM CDT) EBV Ab VCA IGG >750.0(H) 0.0 - 21.9 U/mL [facility] Comment: INTERPRETIVE INFORMATION: Parveen-Monsalve Virus Antibody to ?Viral Capsid Antigen, IgG ??17.9 U/mL or less.......Not Detected ??18.0-21.9 U/mL..........Indeterminate - Repeat testing in ?10-14 days may be helpful. ??22.0 U/mL or greater....Detected Performed By: [employer] [address] [place] [address] Physical Chemist: Salinas Prajapati MD, PhD CLIA Number: [id number] PARVEEN-MONSALVE VIRUS ANTIBODY TO VIRAL CAPSID ANTIGEN IGG REFERENCE INTERVAL: EFFECTIVE 10/11/09 NEGATIVE: ??17.9 U/ML OR LESS EQUIVOCAL: 18.0 - 21.9 U/ML POSITIVE: ??22.0 U/ML OR GREATER Serum 11/20/2023 1:20 PM CDT 11/20/2023 2:24 PM CDT Narrative [facility] [employer] - 11/21/2023 7:21 PM CDT Bill to Corporate Kidney Acquisition ??Account Neva Carbajal [facility] Performing Organization Address [facility]/ZIP Co de Phone Number [employer] [address] [place] [address], * VARICELLA-ZOSTER VIRUS (VZV) ANTIBODY, IGG (11/20/2023 1:20 PM CDT) VZV Ab, IgG Positive [facility] Comment:Positive results ind icate current or past exposure to Varicella-Zoster virus or prior immunization. Blood 11/20/2023 1:20 PM CDT 11/20/2023 2:[address] [facility] - 11/21/2023 9:03 AM CDT Bill to Corporate Kidney Acquisition ??Account Neva [facility] [address] [address] * PHOSPHORUS (11/20/2023 1:20 PM CDT) Phosphorus 3.6 2.5 - 4.5 mg/dL [facility] Blood 11/20/2023 1:20 PM CDT 11/20/2023 2:[address] [facility] - 11/20/2023 2:49 PM CDT Bill to Corporate Kidney Acquisition ??Account Neva [facility] [address] [address] * HIV COMBO (11/20/2023 1:20 PM CDT) Pathologist [facility] HIV Antigen-Antibody Nonreactive Nonreactive [facility] Comment:Performance characte ristics have not been established with this test on patients less than 2 years of age. Blood 11/20/2023 1:20 PM CDT 11/20/2023 2:[address] [facility] - 11/20/2023 3:20 PM CDT Bill to Corporate Kidney Acquisition Account [facility] Performing Organization Address City/[facility]/ZIP Co de Phone Number [facility] [address] [address] * HEPATITIS C ANTIBODY (11/20/2023 1:20 PM CDT) Hep C Bhakti Nonreactive Nonreactive [facility] Comment:Performance characte ristics have not been established with this test on patients less than 10 years of age. Blood 11/20/2023 1:20 PM CDT 11/20/2023 2:[address] [facility] - 11/20/2023 3:19 PM CDT Bill to Corporate Kidney Acquisition ??Account Neva CHO [facility] [address] [address] * HEPATITIS B SURFACE ANTIGEN (11/20/2023 1:20 PM CDT) HBV Surface Ag Nonreactive Nonreactive [facility] Comment: Testing performed at: [facility] [address] [address] Blood 11/20/2023 1:20 PM CDT 11/20/2023 2:[address] [facility] - 11/20/2023 3:19 PM CDT Bill to Corporate Kidney Acquisition ??Account [facility] Performing Organization Address City/[facility]/ZIP Co de Phone Number [address] [address] * HEPATITIS B SURFACE ANTIBODY (11/20/2023 1:20 PM CDT) Pathologist [facility] HBsAb Quant 83.42 mIU/ml [facility] Comment: The Hepatitis B Surface Antibody quantitation is greater than or equal to 12.00 mIU/mL. This patient has either had an antibody response to a hepatitis B vaccination, received a transfusion or has recovered from a hepatitis B infection. This patient should be considered immune to hepatitis B. HBsAb Interpretation Reactive [facility] Blood 11/20/2023 1:20 PM CDT 11/20/2023 2:[address] [facility] - 11/20/2023 3:19 PM CDT Bill to Corporate Kidney Acquisition ??Account Neva [facility] [address] [address] * PTT (APTT) (11/20/2023 1:20 PM CDT) Pathologist [facility] APTT 33.4 25.0 - 37.[address] [facility] Blood 11/20/2023 1:20 PM CDT 11/20/2023 2:[address] [facility] - 11/20/2023 2:54 PM CDT Bill to Corporate Kidney Acquisition Account [facility] Performing Organization Address [facility] Co de Phone Number [facility] [address] [address] * PROTHROMBIN (PT) & INR (11/20/2023 1:20 PM CDT) PT 11.6 9.0 - 12.[address] [facility] INR 1.0 0.8 - 1.1 [facility] Comment: Warfarin Therapeutic Range: Standard Intensity: 2.0 - 3.0 High Intensity: 2.5 - 3.5 Blood 11/20/2023 1:20 PM CDT 11/20/2023 2:[address] [facility] - 11/20/2023 2:54 PM CDT Bill to Corporate Kidney Acquisition Account [facility] Performing Organization Address [facility] Co de Phone Number [facility] [address] [address] * GGT (11/20/2023 1:20 PM CDT) Pathologist [facility] GGT 13 10 - 71 IU/L [facility] Blood 11/20/2023 1:20 PM CDT 11/20/2023 2:[address] [facility] - 11/20/2023 2:49 PM CDT Bill to Corporate Kidney Acquisition ??Account [facility] Performing Organization Address City/[facility] Co de Phone Number [facility] [address] [address] * (ABNORMAL) CBC WITH PLTS/AUTO DIFF (11/20/2023 1:20 PM CDT) WBC 4.75 4.00 - 10.00 k/cmm [facility] RBC 2.54(L) 4.60 - 6.00 m/cmm [facility] Hgb 8.4(L) 13.1 - 17.5 g/dL [facility] Hematocrit 24.7(L) 40.0 - 51.0 % [facility] MCV 97.2 80.0 - 100.[address] [facility] MCH 33.1(H) 25.0 - 32.[address] [facility] MCHC 34.0 31.0 - 36.0 g/dL [facility] RDW 14.5 11.5 - 14.5 % [facility] Plt 92(L) 150 - 400 k/cmm [facility] MPV 11.6 6.5 - 12.[address] [facility] Automated Abs Neutrophil 3.10 1.70 - 6.50 k/cmm [facility] Comment:Preliminary ANC, Fin al Result to Follow Abs Immature Granulocyte 0.01 0.00 - 0.09 k/cmm [facility] Comment:The Immature Granulo cyte Absolute count contains metamyelocytes and myelocytes. Abs Neutrophil 3.10 1.70 - 6.50 k/cmm [facility] Abs Lymphocyte 1.09 0.80 - 4.00 k/cmm [facility] Abs Monocyte 0.41 0.20 - 1.00 k/cmm [facility] Abs Eosinophil 0.13 0.00 - 0.60 k/cmm [facility] Abs Basophil 0.01 0.00 - 0.20 k/cmm [facility] Blood 11/20/2023 1:20 PM CDT 11/20/2023 2:[address] [facility] - 11/20/2023 2:35 PM CDT Bill to Corporate Kidney Acquisition ??Account Neva [facility] [address] [address] * CALCIUM, TOTAL (11/20/2023 1:20 PM CDT) Calcium 8.6 8.6 - 10.0 mg/dL [facility] Blood 11/20/2023 1:20 PM CDT 11/20/2023 2:[address] [facility] - 11/20/2023 2:49 PM CDT Bill to Corporate Kidney Acquisition ??Account [facility] Performing Organization Address [facility] Co de Phone Number [facility] [address] [address] * BLOOD TYPING-ABO/RH (11/20/2023 1:20 PM CDT) ABORHG O POS [facility] Blood 11/20/2023 1:20 PM CDT 11/20/2023 2:[address] [facility] - 11/20/2023 3:06 PM CDT Bill to Corporate Kidney Acquisition ??Account [facility]a [facility] TRANSFUSION SER VICES Performing Organization Address [facility] Co de Phone Number [facility] [address] [address] * BILIRUBIN, TOTAL (ONLY) (11/20/2023 1:20 PM CDT) Bili Total 0.5 <=1.2 mg/dL [facility] Blood 11/20/2023 1:20 PM CDT 11/20/2023 2:[address] [facility] - 11/20/2023 2:49 PM CDT Bill to Corporate Kidney Acquisition ??Account [facility] Performing Organization Address [facility] Co de Phone Number [facility] [address] [address] * AST (SGOT) (11/20/2023 1:20 PM CDT) AST(SGOT) 15 5 - 40 IU/L [facility] Blood 11/20/2023 1:20 PM CDT 11/20/2023 2:[address] [facility] - 11/20/2023 2:49 PM CDT Bill to Corporate Kidney Acquisition ??Account [facility] Performing Organization Address City/[facility]/ZIP Co de Phone Number [facility] [address] [address] * ALT (SGPT) (11/20/2023 1:20 PM CDT) ALT (SGPT) 9 <=41 IU/L [facility] Blood 11/20/2023 1:20 PM CDT 11/20/2023 2:[address] [facility] - 11/20/2023 2:49 PM CDT Bill to Corporate Kidney Acquisition ??Account [facility] Performing Organization Address City/[facility]/ZIP Co de Phone Number [facility] [address] [address] * ALKALINE PHOSPHATASE (11/20/2023 1:20 PM CDT) Alk Phos 118 40 - 129 IU/L [facility] Comment:No reference range e stablished for patients <18 years old. Blood 11/20/2023 1:20 PM CDT 11/20/2023 2:[address] [facility] - 11/20/2023 2:49 PM CDT Bill to Corporate Kidney Acquisition ??Account [facility] Performing Organization Address City/[facility]/ZIP Co de Phone Number [facility] [address] [address] * ALBUMIN (11/20/2023 1:20 PM CDT) Albumin 4.3 3.8 - 5.1 g/dL [facility] Blood 11/20/2023 1:20 PM CDT 11/20/2023 2:[address] [facility] - 11/20/2023 2:49 PM CDT Bill to Corporate Kidney Acquisition ??Account Neva CHO [facility] [address] [address] documented in this encounter Visit Diagnoses Diagnosis Chronic kidney disease- Primary Chronic kidney disease, unspecified documented in this encounter
--- OUTSIDE RECORDS SUMMARY | 2023-12-17 19:33 | XMS_ITS | Encounter Summary ---
Author Organization [facility] Address [address] [address] Phone Care Team Providers Care Data Management Name Role Phone Unavailable Primary Care Provider Unavailabl e Encounter Details Date Type Department Care Team (Late Contact Info) Description 11/01/2023 Documentation Only Transplant Program [address] [place] [address] Williams Lindquist Transplant Woodwork Salvage Inspector [address] [place], [place] [id number] Social History Tobacco Use Types Packs/Day Years Used Date Smoking Tobacco: Never Assessed Sex and Gender Information Value Date Recorded Sex Assigned at Not on file Gender Identity Not on file Sexual Orientation Not on file documented as of this encounter Progress Notes * Williams Lindquist Transplant Woodwork Salvage Inspector - 11/01/2023 1:48 PM CDT D/A: The following secure email was sent to Rin, patient's bingo worker. Lopez Gar, Sorry to bother you, but I'm wondering if you have received the [facility] approved renewed ESRD Care Planon Maco Stein? He has transplant evaluation appointments scheduled and I'm afraid we'll have to cancel them if we don't have a current Care Plan in place. Thanks for your help, Williams Hui: Response pending. Brenna Lindquist, Transplant Woodwork Salvage Inspector, October 13:49 documented in this encounter Plan of Treatment Upcoming Encounters Date Type Department Care Team (Late st Contact Info) Description 01/01/2024 2:00 PM FOAM CUTTING SUPERVISOR Office Visit Transplant Program [address] [place] [address] Ning Leiva MD [address] [place] [address] Scheduled Discharge Disposition: Discharged to home or self care documented as of this encounter Visit Diagnoses Not on filedocumented in this encounter
--- OUTSIDE RECORDS SUMMARY | 2023-12-17 19:33 | XMS_ITS | Clinical Summary ---
Author Organization [facility] Facility Address [address] [facility] [address] [place] [address] Care Team Providers Care Scallop Cutter Name Role Phone No, Pcp Primary Care Provider [phone] Active Problems Problem Noted Date Diagnosed Date End stage renal disease 11/23/2023 Dependence on renal dialysis 11/23/2023 Type 2 diabetes mellitus 11/23/2023 Encounters Date Type Department Care Team Description 12/02/2023 Orders Only [facility] [address] [facility] [address] [place] [address] Julito Cortez MD 11/22/2023 Orders Only [facility] [address] [facility] [address] [place] [address] Julito Cortez MD 11/22/2023 Treatment [facility] [address] [address] Julito Cortez MD 11/08/2023 Orders Only [facility] [address] [address] Julito Cortez MD 11/03/2023 Orders Only [facility] [address] [facility] [address] [place] [address] Julito Cortez MD 09/27/2023 Orders Only [facility] [address] [facility] [address] [place] [address] Julito Cortez MD 09/26/2023 [facility] [address] [place] [phone] Julito Cortez MD from Last 3 Months [...] Urea Reduction 52(L) 65 - 80 % [facility] 12/02/2023 12/04/2023 10: 54 AM CDT Narrative [facility] - 12/04/2023 Unless otherwise specified, test(s) performed at: [facility], [address] [place] [address], [place] [address] HEEL STIFFENER: Gurdeep Ricardo M.D., Ph.D For any questions, please call customer service at FREQUENCY:MONTHLY Resulting Agency Comment Specimen source: Plasma us Julito Cortez MD LAB BLOOD ORDERABLES Final Resul t [facility] See order comments or contact performing lab Unknown, [place] * (ABNORMAL) POST CHEMISTRY (12/02/2023) Only the most recent of3 resultswithin the time period is included. Pathologist [facility] BUN Post Dialysis 20(H) 6 - 19 mg/dL [facility] 12/02/2023 12/04/2023 10: 54 AM CDT Narrative [facility] - 12/04/2023 Unless otherwise specified, test(s) performed at: [facility] [facility], [address] [place] [address], [place] [address] HEEL STIFFENER: Gurdeep Ricardo M.D., Ph.D For any questions, please call customer service at FREQUENCY:MONTHLY Resulting Agency Comment Specimen source: Plasma Julito Cortez MD LAB BLOOD ORDERABLES Final Resul t [facility] See order comments or [...] 12/04/2023 Unless otherwise specified, test(s) performed at: [facility], [address] [place] [address], [place] [address] HEEL STIFFENER: Gurdeep Ricardo M.D., Ph.D For any questions, [...] 12/02/2023 12/04/2023 9:3 8 AM CDT Narrative [facility] - 12/05/2023 Unless otherwise specified, test(s) performed at: [facility], [address] [place] [address], [place] [address] HEEL STIFFENER: Gurdeep Ricardo M.D., Ph.D For any questions, please call customer service at FREQUENCY:MONTHLY Resulting Agency Comment Specimen source: Serum Julito Cortez MD LAB BLOOD ORDERABLES Edited Resu lt - Final [facility] See order comments or contact performing lab Unknown, [place] * [facility] Results (12/02/2023) Only the most recent of3 resultswithin the time period is included. WSTDKT/V 2.2 [facility] Simple KT/V (HHD and NXSTAGE) 0.73 [facility] SPKT/V DAUGIRDAS II (HHD & NXSTAGE) 0.78 [facility] 12/02/2023 12/02/2023 [facility] [place] LAB BLOOD ORDERABLES Final Result [facility] Contact Performing lab Unknown, [place] from Last 3 Months Insurance MEDICAID [place] Care Teams Scallop Cutter Relationship Specialty Start Date End Date No, Pcp PCP - General Internal Medicine 09/10/23
--- OUTSIDE RECORDS SUMMARY | 2023-12-17 19:33 | XMS_ITS | Encounter Summary ---
Author Organization [facility] Address [address] [facility] [place] [address] Phone Care Team Providers Care Guide Tour Name Role Phone Unavailable Primary Care Provider Unavailabl e Reason for Visit * Reason Comments Medical Nutrition Therapy Encounter Details Date Type Department Care Team (Late st Contact Info) Description 11/20/2023 1:30 PM CDT Office Visit Transplant Program [address] [facility] [address] [place], [place] [id number] Neva Carbajal MBBS [address] [facility] [address] [place], [place] [phone] [address], LD [address] [facility] [address] [place], [place] [address] Encounter for pre-transplant evaluation for kidney transplant [...] 35.4 inches (90 cm) for South , Arabic, or Urdu [email or web address]-vysglhavvw-[email or web address]/cyqny-nvaextvgowmft-szopo kqlbv-uva-qjvvgxoya-ethnic-groups/ Waist to Height Ratio (W:HtR): 0.63 (11/20/2023) Estimation of T2DM, HTN, CVD, and mortality risk due to central adiposity (questionable accuracy when BMI>35) 0.4 to 0.49 (no indication of increased health risks due to central adiposity) 0.5 to 0.59 (increased health risks due to increased central adiposity) 0.6 or more (further increased health risks due to high central adiposity) https://www.nice.org.uk/guidance/cg189/chapter/Recommendations#caggvxfbnvp-lfw-m uyzfcvgz-ifnnyypcft-volhlqj-klh-arlhryd-rqvaxaidk (Clinical guideline [CG189] last updated 03 November 2021) Hand Die Assembler Strength (HGS) Examination ([place] [employer] Hand [employer]rapists 2016) Equipment: [employer] Hydraulic Hand Dynamometer [id number] Test Hand Date Readings in pounds force Patient Mean Normal (mean for age & sex) Alert Level (minus 2 SD for age & sex) Right hand 11/20/2023 85, 85, 94 88 116.8 75.4 Left hand 11/20/2023 Dialysis access NA 112.8 75.4 Patient Position: Seated upright in chair, arms bent at 90 degrees Patient agreed to exam. Patient tolerated exam. Reference ranges p.5: [email or web address] Frailty Screen: 1. How many days in [...] 0) Weight Loss Score = 0 4. Die Assembler Strength (dominant hand): Normal HGS for BMI [...] to 29 : <=39.5# >29 : <=46# Die Assembler Strength Score = 0 5. Walk Time [...] Mortality (Tristen Oconnell et farzaneh, J [employer]2017) Social History: Alcohol: none with illness, [...] Pre-tx info session Accompanied by Daughter Becki Geologic Technician NA Prior MNT Dialysis RD CDCES [...] Meals out: 1 x wk - maybe greenlandic Usual fluid intake / 24 hr ~2 [...] Insecurity: No Food Insecurity (06/04/2023) Received from [facility], [employer] [facility] [employer] [facility] Food Insecurity Worried About Running Out of [...] 12/03/2023 9:58 AM Certified Clinical Transplant Dietitian [employer] [phone] documented in this encounter Plan of Treatment Upcoming Encounters Date Type Department Care Team (Late st Contact Info) Description 01/01/2024 2:00 PM AIRCRAFT SHIPPING CHECKER Office Visit Transplant Program [address] [place] [address] Ning Leiva MD [address] [place] [place] [address] Scheduled Discharge Disposition: Discharged to home or self care documented as of this encounter Visit Diagnoses Diagnosis Encounter for pre-transplant evaluation for kidney transplant- Primary documented in this encounter
--- OUTSIDE RECORDS SUMMARY | 2023-12-17 19:33 | XMS_ITS | Encounter Summary ---
Author Organization [facility] Address [address] [facility] [address] Phone Care Team Providers Care Bonderizer Name Role Phone Unavailable Primary Care Provider [...] ABDOMEN & PELVIS W/O CONTRAST MATERIAL Ct [facility] [address] [place] [address] Referral ID Status Reason Start Date Expiration Date Visits Re quested Visits Authorized [id number] Closed 1 1 Encounter Details Date Type Department Care Team (Latest Contact Info) Description 11/20/2023 12:08 PM CDT - 11/20/2023 11:59 PM CDT Hospital Encounter [facility] [address] [place], [place] [phone] Blayne Quiroz MD [address] [facility] [address] [place] [address] Discharge Disposition: Discharged to home or self [...] st Contact Info) Description 01/01/2024 2:00 PM ROUGHER FOR CEMENT Office Visit Transplant Program [address] [place] [address] Ning Leiva MD [address] [place] [address] Scheduled Discharge Disposition: Discharged to home or [...]
--- OUTSIDE RECORDS SUMMARY | 2023-12-17 19:33 | XMS_ITS | Clinical Summary ---
Author Organization [employer] Address [place], [place] [address] Care Team Providers Care Plate Mounter Name Role Phone Daysi Pires Primary Care Provider Allergies Active Allergy Reactions Criticality Noted Date Comments Latex *Unknown 09/15/2022 Tramadol *Unknown 09/15/2022 Medications Medication Sig Dispensed Refills Start Date End Date Status gabapentin (NEURONTIN) 300 mg capsule Take 300 mg by mouth once daily if needed. Suspended calcitrioL 0.5 mcg capsuleIndications:Sec ondary hyperparathyroidism of renal origin (HC) Take one tablet by mouth on Mondays, Wednesdays, and Fridays. 30 Capsule 09/30/19 23 Suspended Additional Information losartan (COZAAR) 100 mg tabletIndications:HTN (hypertension) Take 100 mg by mouth once daily. 0 10/14/19 23 Suspended hydrOXYzine HCL (ATARAX) 25 mg tabletIndications:Anxi ety Take 0.5 Tablets (12.5 mg) by mouth every 6 hours if needed for Anxiety. 30 Tablet 1 11/15/19 23 024 Discontinued( Pharmacist change per medication history (E-cancel not sent)) sertraline (ZOLOFT) 50 mg tabletIndications:Anxi ety Take 1 Tablet (50 mg) by mouth every morning. Take with the 25 mg tab to total 75 mg daily 30 Tablet 1 12/13/19 23 Suspended Additional Information sertraline (ZOLOFT) 25 mg tabletIndications:Anxi ety Take 1 Tablet (25 mg) by mouth every morning. Take with the 50 mg tab, for total daily dose of 75 mg. 30 Tablet 1 12/13/19 23 Suspended Additional Information amLODIPine (NORVASC) 10 mg tablet Take 10 mg by mouth once daily. 01/27/20 24 Suspended RenaPlex-D 800 mcg-12.5 mg -2,000 unit tab Take 1 Tablet by mouth once daily. 03/24/19 Suspended sevelamer carbonate (RENVELA) 800 mg tab tablet TAKE 3 TABLETS BY MOUTH THREE TIMES DAILY WITH MEALS 04/15/19 Suspended vit C/E/cuperic/zinc/lutei n (PRESERVISION LUTEIN ORAL) Take 1 Capsule by mouth at bedtime. Suspended albuterol HFA (PRO-AIR; VENTOLIN; PROVENTIL) 90 mcg/actuation inhaler Inhale 1-2 Puffs by mouth 4 times daily if needed for Shortness Of Breath. Suspended insulin glargine U-300 (Toujeo SoloStar U-300 Insulin) 300 unit/mL (1.5 mL) pen Inject 30 units subcutaneous three times daily. Pt takes ~ 30 units TID depending on BS Discontinued( Pharmacist change per medication history (E-cancel not sent)) carvediloL (COREG) 12.5 mg tabletIndications:HTN (hypertension) Take 1 Tablet (12.5 mg) by mouth two times daily. 60 Tablet 10/31/19 24 Discontinued( Pharmacist change per medication history (E-cancel not sent)) amoxicillin-clavulanat e (AUGMENTIN) 500-125 mg tabletIndications:Comm unity acquired pneumonia of right lower lobe of lung,Dialysis patient (HC),End stage renal disease (HC) Take 1 Tablet by mouth every 12 hours for 10 days. 20 Tablet 11/30/19 24 azithromycin (Zithromax Z-Waldo) 250 mg tabletIndications:Comm unity acquired pneumonia of right lower lobe of lung Two tablets the first day, one daily days 2-5 6 Tablet 11/30/19 24 sensor (StackdriverStyle Gale 3 Sensor) for continuous blood glucose monitor (CGM)Indications:Type 2 diabetes mellitus with chronic kidney disease on chronic dialysis, with long-term current use of insulin (HC) To be used to read blood sugars, change sensor every 14 days. 6 Each 3 11/30/19 Suspended Additional Information codeine-guaiFENesin 10-100 mg/5 mL liquidIndications:Coug h, unspecified type,Community acquired pneumonia of right lower lobe of lung Take 5-10 mL by mouth at bedtime if needed for Cough. Max dose 60 mL per 24 hrs. 118 mL 11/30/19 Suspended Additional Information azithromycin (Zithromax Z-Waldo) 250 mg tabletIndications:Coug h, unspecified type,Dialysis patient (HC) Two tablets the first day, one daily days 2-5 6 Tablet 12/10/19 24 024 Discontinued( Pharmacist change per medication history (E-cancel not sent)) carvediloL (COREG) 6.25 mg tablet Take 6.25 mg by mouth two times daily. Suspended insulin aspart protamine-insulin aspart (NovoLOG Mix 70-30 U-100 Insuln) 100 unit/mL (70-30) injection Inject 60 units subcutaneous once daily. Depends on blood sugar. 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 [...] Encounters Date Type Department Care Team Description 12/15/2023 2:03 AM CDT - Present Hospital Encounter [facility] [address] [place] [address] s, U Hospitalist Eyad Penn MD Van Vranken, TAMMIE Sharp Dustin Christopher, MD Zamfirescu, Anca Ioana, MD Type 2 diabetes mellitus with chronic kidney disease on chronic dialysis, with long-term current use of insulin (HC) (Primary Dx) 12/15/2023 Travel 12/14/2023 Orders Only [facility] Scanner 1 scan: ([facility]-Ord) [facility], 12/14/2023 12/12/2023 Telephone [facility] [address] [place] [address] Mina Carnes DPM Appointment 12/10/2023 Telephone [facility] [address] [place] [address] Daysi Pires PA antibiotic not working (antibiotic finished) 12/10/2023 Telephone [facility] [address] [place] [address] Daysi Pires PA Questions (finished zpac and still feeling sick) 12/07/2023 Telephone [facility] [address] [place] [address] Daysi Pires PA RETURNING CALL 12/03/2023 Telephone [facility] [address] [place] [address] Daysi Pires PA Follow Up 11/30/2023 3:30 PM CDT Ancillary Procedure [facility] [address] [place] [address] 11/30/2023 2:40 PM CDT Office Visit [address] [address] Daysi Pires PA Follow Up (Coughing, SOB, chills started Sunday) 11/30/2023 Travel 11/14/2023 Orders Only [facility] Scanner 1 scan: (1-Ord) [facility] WOUND DEBR[facility] LEFT TOE, 11/14/2023 11/07/2023 Orders Only [facility] Scanner 1 scan: (1-Ord) [facility], WOUND DEBRID[facility] LEFT TOE, 11/07/2023 10/31/2023 11:35 AM CDT Office Visit [address] [address] Ning Lopez PA Hospital F/U (Slowly feeling better ) 10/31/2023 Travel 10/26/2023 Patient Outreach [facility] [address] [place] [address] Laura Reyes, RN Primary RN Care Management (Lace 56); Hospital F/U 10/23/2023 5:44 PM CDT - 10/25/2023 5:30 AM CDT Hospital Encounter [facility] [address] [place] [address] Aiden Babin MD [facility], [facility] Hospitalists Of Eyad Wallace MD Kethireddy, TAMMIE Lyles Lower extremity edema (Primary Dx); ESRD (end stage renal disease) (HC); HTN (hypertension) Discharge Disposition: Home Self Care 10/23/2023 Travel 10/19/2023 Nurse Triage [facility] [address] [place] [address] Daysi Pires PA Chest Pain from Last [...] file 10/24/2023 Food Insecurity Answer Date Recorded Do you worry your food will run out before you are able to buy more? 1 12/15/2023 Transportation Needs Answer Date Record ed Lack of Transportation (Medical) 1 06/04/2023 Housing Stability Answer Date Recorded What is your housing situation today? 1 12/15/2023 Sex and Gender Information Value Date Recorded Sex Assigned at Not on file Gender Identity Not on file Sexual Orientation Not on file Obstetrics History Last Filed Vital Signs Vital Sign Reading Time Taken Comments Blood Pressure 160/58 12/17/2023 5:19 PM CDT Pulse 85 12/17/2023 5:19 PM CDT Temperature 37.6 ??C (99.7 ??F) 12/17/2023 5:19 PM CD T Respiratory Rate 14 12/17/2023 5:19 PM CDT Oxygen Saturation 95% 12/17/2023 5:19 PM CDT Inhaled Oxygen Concentration - - Weight 90.7 kg (200 lb) 12/17/2023 6:00 AM CDT Height 175.3 cm (5' 9) 12/15/2023 2:00 AM CDT Body Mass Index 29.53 12/15/2023 2:00 AM CDT Plan of Treatment Upcoming Encounters Date Type Department Care Team (Late st Contact Info) Description 12/19/2023 11:38 AM CDT Anesthesia Event [facility] [address] [place] [address] Braxton Esquivel MD [address] [facility] [address] [place] [address] 12/19/2023 11:38 AM CDT - 12/19/2023 12:50 PM CDT Surgery [facility] [address] [place] [address] Jacoby Chairez DPM [address] [facility] [address] [place] [address] LEFT FOOT PARTIAL FIFTH RAY AMPUTATION Scheduled Procedures Name Priority Associated Diagnoses Date/Ti me AMPUTATION TOE LEFT FOOT OSTEOMYELITIS 12/19/2023 11:38 AM CDT Health Maintenance Due Date Last Done Comments [...] for age 6-64 Completed 11/22/19 24 Procedures The patient is currently admitted. The information in this section might not be complete until the patient is discharged. Procedure Name Priority Date/Time Associated Diagnosis Comments GLUCOSE METER Timed 12/17/2023 5:20 PM CDT GLUCOSE METER Timed 12/17/2023 11:37 AM CDT SCAN-CARDIAC STRIP 12/17/2023 8: 27 AM CDT GLUCOSE METER Timed 12/17/2023 7:50 AM CDT VANCOMYCIN Early AM 12/17/2023 4:38 AM CDT WHITE BLOOD COUNT Early AM 12/17/2023 4:3 8 AM CDT POTASSIUM Early AM 12/17/2023 4:38 AM CDT GLUCOSE METER Timed 12/17/2023 2:34 AM CDT SCAN-CARDIAC STRIP 12/17/2023 1: 01 AM CDT SCAN-CARDIAC STRIP 12/16/2023 9: 12 PM CDT GLUCOSE METER Timed 12/16/2023 8:25 PM CDT GLUCOSE METER Timed 12/16/2023 7:04 PM CDT SCAN-CARDIAC STRIP 12/16/2023 5: 01 PM CDT GLUCOSE METER Timed 12/16/2023 4:58 PM CDT VANCOMYCIN Today 12/16/2023 4:36 PM CDT GLUCOSE METER Timed 12/16/2023 2:36 PM CDT GLUCOSE METER Timed 12/16/2023 12:26 PM CDT SCAN-CARDIAC STRIP 12/16/2023 8: 23 AM CDT GLUCOSE METER Timed 12/16/2023 7:36 AM CDT CBC W PLT NO DIFF Early AM 12/16/2023 6:3 2 AM CDT BASIC METABOLIC PANEL Early AM 12/16/2023 6:32 AM CDT SCAN-CARDIAC STRIP 12/16/2023 1: 10 AM CDT SCAN-CARDIAC STRIP 12/15/2023 9: 36 PM CDT SCAN-CARDIAC STRIP 12/15/2023 9: 36 PM CDT GLUCOSE METER Timed 12/15/2023 8:23 PM CDT US ARTERIAL LOWER EXTREMITY W TERESITA BILATERAL Routine 12/15/2023 8:05 PM CDT MR FOOT LEFT WO Routine 12/15/2023 6:44 PM CDT BLOOD CULTURE Today 12/15/2023 4:15 PM CDT BLOOD CULTURE Today 12/15/2023 4:14 PM CDT GLUCOSE METER Timed 12/15/2023 4:04 PM CDT SCAN-CARDIAC STRIP 12/15/2023 4: 00 PM CDT GLUCOSE METER Timed 12/15/2023 11:50 AM CDT AEROBIC BACTERIAL CULTURE, STAIN Today 12/15/2023 11:48 AM CDT GLUCOSE METER Timed 12/15/2023 9:28 AM CDT SCAN-CARDIAC STRIP 12/15/2023 9: 14 AM CDT EKG 12 LEAD DUANE 12/15/2023 8:10 AM CDT GLUCOSE METER Timed 12/15/2023 7:25 AM CDT TROPONIN T (HS) ONE TIME Timed 12/15/2023 4:47 AM CDT HEPATIC FUNCTION PANEL STAT 12/15/2023 3:08 AM CDT CBC W PLT NO DIFF STAT 12/15/2023 3:0 8 AM CDT BASIC METABOLIC PANEL STAT 12/15/2023 3:08 AM CDT TROPONIN T (HS) ACUTE W/2HR REFLEX STAT 12/15/2023 3:08 AM CDT XR FOOT 3 VIEWS LEFT PORTABLE STAT 12/15/2023 2:55 AM CDT SCAN-CARDIAC STRIP 12/15/2023 2: 06 AM CDT SCAN-RADIOLOGY REPORT 12/14/2023 12:00 AM CDT XR CHEST 2 VIEWS PA AND LATERAL [...] Health Maintenance Results * (ABNORMAL) GLUCOSE METER (12/17/2023 5:20 PM CDT) Only the most recent of22 resultswithin the time period is included. GLUCOSE METER 176(H) 65 - 100 mg/dL 12/17/2023 5:[address] [facility] Blood BLOOD SPECIMEN / Unknown 12/17/2023 5:20 PM CDT 12/17/2023 5:25 PM CDT Taisha Tirado MD CHEMISTRY Performing Organization Address City/[facility]/ZIP Co de Phone Number [facility] SENDOUT INTERNAL ZIP [phone] [place] [phone] * SCAN-CARDIAC STRIP (12/17/2023 8:27 AM CDT) Scanner OTHER * (ABNORMAL) WHITE BLOOD COUNT (12/17/2023 4:38 AM CDT) WHITE BLOOD COUNT 12.9(H) 4.5 - 11.0 thou/cu mm 12/17/2023 4:[address] [facility] NRBC 0.2 % 12/17/2023 4:[address] [facility] ABS NRBC 0.0 thou /cu mm 12/17/2023 4:[address] [facility] Blood BLOOD SPECIMEN / Unknown Non-Lab Venipuncture / Unknown 12/17/2023 4:38 AM CDT 12/17/2023 4:44 AM CDT Phil Patterson HEMATOL OGY Performing Organization Address City/[facility]/ZIP Co de Phone Number [facility] SENDOUT INTERNAL ZIP [phone] [place] [phone] * POTASSIUM (12/17/2023 4:38 AM CDT) POTASSIUM 4.7 3.5 - 5.1 mmol/L 12/17/2023 5:[address] [facility] Blood BLOOD SPECIMEN / Unknown Non-Lab Venipuncture / Unknown 12/17/2023 4:38 AM CDT 12/17/2023 4:44 AM CDT Phil Patterson ENGINEERING INTERN RY Performing Organization Address City/[facility]/ZIP Co de Phone Number [facility] SENDOUT INTERNAL ZIP [phone] [place] [phone] * VANCOMYCIN (12/17/2023 4:38 AM CDT) Only the most recent of2 resultswithin the time period is included. VANCOMYCIN 32.3 ug/mL 12/17/2023 5:[address] [facility] Comment:No Reference Range D efined. DATE OF LAST DOSE,RANDOM Not Given 12/17/2023 5:[address] [facility] TIME OF LAST DOSE,RANDOM Not Given 12/17/2023 5:[address] [facility] Blood BLOOD SPECIMEN / Unknown Non-Lab Venipuncture / Unknown 12/17/2023 4:38 AM CDT 12/17/2023 4:44 AM CDT Phil Patterson ENGINEERING INTERN RY [facility] SENDOUT INTERNAL ZIP [phone] [place] [address] * SCAN-CARDIAC STRIP (12/17/2023 1:01 AM CDT) Scanner OTHER * SCAN-CARDIAC STRIP (12/16/2023 9:12 PM CDT) Scanner OTHER * SCAN-CARDIAC STRIP (12/16/2023 5:01 PM CDT) Scanner OTHER * SCAN-CARDIAC STRIP (12/16/2023 8:23 AM CDT) Scanner OTHER * (ABNORMAL) CBC W PLT NO DIFF (12/16/2023 6:32 AM CDT) Only the most recent of3 resultswithin the time period is included. WHITE BLOOD COUNT 15.4(H) 4.5 - 11.0 thou/cu mm 12/16/2023 7:[address] [facility] RED BLOOD COUNT 2.79(L) 4.30 - 5.90 mil/cu mm 12/16/2023 7:[address] [facility] HEMOGLOBIN 8.6(L) 13.5 - 17.5 g/dL 12/16/2023 7:[address] [facility] HEMATOCRIT 25.1(L) 37.0 - 53.0 % 12/16/2023 7:[address] [facility] MCV 90 80 - 100 fL 12/16/2023 7:[address] [facility] MCH 30.8 26.0 - 34.0 pg 12/16/2023 7:[address] [facility] MCHC 34.3 32.0 - 36.0 g/dL 12/16/2023 7:[address] [facility] RDW 14.2 11.5 - 15.5 % 12/16/2023 7:[address] [facility] PLATELET COUNT 132(L) 140 - 440 thou/cu mm 12/16/2023 7:[address] [facility] MPV 12.0(H) 6.5 - 11.0 fL 12/16/2023 7:[address] [facility] NRBC 0.0 % 12/16/2023 7:[address] [facility] ABS NRBC 0.0 thou /cu mm 12/16/2023 7:[address] [facility] Blood BLOOD SPECIMEN / Unknown Butterfly / Unknown 12/16/2023 6:32 AM CDT 12/16/2023 6:38 AM CDT Eyad Dick MD HEMATOLOGY [facility] SENDOUT INTERNAL ZIP [phone] [place] [id number] * (ABNORMAL) BASIC METABOLIC PANEL (12/16/2023 6:32 AM CDT) Only the most recent of3 resultswithin the time period is included. SODIUM 130(L) 136 - 145 mmol/L 12/16/2023 7:[address] [facility] POTASSIUM 3.7 3.5 - 5.1 mmol/L 12/16/2023 7:[address] [facility] CHLORIDE 91(L) 98 - 107 mmol/L 12/16/2023 7:[address] [facility] CO2,TOTAL 24 22 - 29 mmol/L 12/16/2023 7:[address] [facility] ANION GAP 15 5 - 18 12/16/2023 7:[address] [facility] GLUCOSE 311(H) 70 - 99 mg/dL 12/16/2023 7:[address] [facility] CALCIUM 8.6 8.6 - 10.0 mg/dL 12/16/2023 7:[address] [facility] BUN 38(H) 6 - 20 mg/dL 12/16/2023 7:[address] [facility] CREATININE 6.38(H) 0.70 - 1.20 mg/dL 12/16/2023 7:[address] [facility] BUN/CREAT RATIO 6(L) - 7:28 AM [facility] eGFR 10(L) >90 mL/min/1.7 3m2 12/16/2023 7:28 AM [facility] Comment:As of 2021, eG FR is calculated by the CKD-EPI creatinine equation without race adjustment. ??eGFR can be influenced by muscle mass, exercise, and diet. ??The reported eGFR is an estimation only and is only applicable if the renal function is stable. Blood BLOOD SPECIMEN / Unknown Butterfly / Unknown 12/16/2023 6:32 AM CDT 12/16/2023 6:38 AM CDT Eyad Dick MD CHEMISTRY [facility] SENDOUT INTERNAL ZIP [phone] [place] [address] * SCAN-CARDIAC STRIP (12/16/2023 1:10 AM CDT) Scanner OTHER * SCAN-CARDIAC STRIP (12/15/2023 9:36 PM CDT) Scanner OTHER * SCAN-CARDIAC STRIP (12/15/2023 9:36 PM CDT) Scanner OTHER * US ARTERIAL LOWER EXTREMITY W TERESITA BILATERAL (12/15/2023 8:05 PM CDT) Anatomical Region Laterality Modality LEGS Ultrasound 12/15/2023 8:05 PM CDT Impressions 12/15/2023 8:37 PM CDT 1. ??RIGHT LOWER EXTREMITY: Noncompressible right TERESITA can be seen with healthy arteries, as opposed to heavy atherosclerotic peripheral arterial disease. Note is made of the patient's hypertension and grossly normal arterial waveforms. 2. ??LEFT LOWER EXTREMITY: Borderline left TERESITA for peripheral arterial disease. There is no significant focal stenosis, however, and the arterial waveforms are fairly well preserved, except beyond the popliteal artery, where there are biphasic/monophasic waveforms. Narrative 12/15/2023 8:37 PM CDT For Patients: As a result of the Cures Act, medical imaging exams and procedure reports are released immediately into your electronic medical record. You may view this report before your referring provider. If you have questions, please contact your health care provider. EXAM: 1. RESTING ANKLE-BRACHIAL INDICES (ABIs) 2. DUPLEX ARTERIAL ULTRASOUND OF THE LOWER EXTREMITIES BILATERALLY LOCATION: [facility] DATE: 12/15/2023 INDICATION: Decreased extremity pulses COMPARISON: None. TECHNIQUE: Arterial duplex ultrasound of both lower extremities with velocities and waveforms was performed. TERESITA and waveforms of the bilateral lower extremities were also performed. FINDINGS: TERESITA: RIGHT Ankle (PT): Noncompressible Index: Not applicable Ankle (DP): Noncompressible Index: Not applicable LEFT Ankle (PT): 153 Index: 0.88 Ankle (DP): 160 Index: 0.92 Resting ABIs are noncompressible on the right. Resting ABIs are 0.92 on the left. Mild decreased amplitude in the left posterior tibial artery waveform. WAVEFORMS and VELOCITIES: RIGHT LOWER EXTREMITY (cm/s): EIA: 265 T HOMEBIRTH MIDWIFE: 203 T PFA: 155 T SFA (proximal): 158 T SFA (mid): 182 T SFA (distal): 215 T Pop A Prox: 136 T Pop A Dist: 122 T INFORMATICS SPECIALIST Dist: 139 T MATTHEW: 86 T DPA: 135 T (M=monophasic, B=biphasic, T=triphasic) LEFT LOWER EXTREMITY (cm/s): EIA: 267 T HOMEBIRTH MIDWIFE: 234 T PFA: 168 B SFA (proximal): 234 T SFA (mid): 281 T SFA (distal): 224 T Pop A Prox: 229 T Pop A Dist: 168 T INFORMATICS SPECIALIST Dist: 35 B/M MATTHEW: 161 B/M DPA: 172 B/M (M=monophasic, B=biphasic, T=triphasic) Procedure Note So, Hiren Crowell MD - 12/15/2023 For Patients: As a result of the Cures Act, medical imagingexams and procedure reports are released immediately into your electronicmedical record. You may view this report before your referring provider.If you have questions, please contact your health care provider. EXAM: 1. RESTING ANKLE-BRACHIAL INDICES (ABIs) 2. DUPLEX ARTERIAL ULTRASOUND OF THE LOWER EXTREMITIES BILATERALLY LOCATION: [facility] DATE: 12/15/2023 INDICATION: Decreased extremity pulses COMPARISON: None. TECHNIQUE: Arterial duplex ultrasound of both lower extremities withvelocities and waveforms was performed. TERESITA and waveforms of the bilaterallower extremities were also performed. FINDINGS: TERESITA: RIGHT Ankle (PT): Noncompressible Index: Not applicable Ankle (DP): Noncompressible Index: Not applicable LEFT Ankle (PT): 153 Index: 0.88 Ankle (DP): 160 Index: 0.92 Resting ABIs are noncompressible on the right. Resting ABIs are 0.92 on the left. Mild decreased amplitude in the leftposterior tibial artery waveform. WAVEFORMS and VELOCITIES: RIGHT LOWER EXTREMITY (cm/s): EIA: 265 T HOMEBIRTH MIDWIFE: 203 T PFA: 155 T SFA (proximal): 158 T SFA (mid): 182 T SFA (distal): 215 T Pop A Prox: 136 T Pop A Dist: 122 T INFORMATICS SPECIALIST Dist: 139 T MATTHEW: 86 T DPA: 135 T (M=monophasic, B=biphasic, T=triphasic) LEFT LOWER EXTREMITY (cm/s): EIA: 267 T HOMEBIRTH MIDWIFE: 234 T PFA: 168 B SFA (proximal): 234 T SFA (mid): 281 T SFA (distal): 224 T Pop A Prox: 229 T Pop A Dist: 168 T INFORMATICS SPECIALIST Dist: 35 B/M MATTHEW: 161 B/M DPA: 172 B/M (M=monophasic, B=biphasic, T=triphasic) IMPRESSION: 1. RIGHT LOWER EXTREMITY: Noncompressible right TERESITA can be seen withhealthy arteries, as opposed to heavy atherosclerotic peripheral arterialdisease. Note is made of the patient's hypertension and grossly normalarterial waveforms. 2. LEFT LOWER EXTREMITY: Borderline left TERESITA for peripheral arterialdisease. There is no significant focal stenosis, however, and the arterialwaveforms are fairly well preserved, except beyond the popliteal artery,where there are biphasic/monophasic waveforms. Moni Duncan NP US * MR FOOT LEFT WO (12/15/2023 6:44 PM CDT) Anatomical Region Laterality Modality FOOT L Magnetic Resonan ce 12/15/2023 6:44 PM CDT Impressions 12/15/2023 7:10 PM CDT 1. ??Changes of osteomyelitis involving the distal phalanx of the fifth toe as well as likely the fifth middle phalanx. 2. ??Reactive osteitis in the fifth metatarsal head without debbie osteomyelitis. 3. ??Moderate global atrophy of the intrinsic musculature of the foot. Narrative 12/15/2023 7:10 PM CDT For Patients: As a result of the Cures Act, medical imaging exams and procedure reports are released immediately into your electronic medical record. You may view this report before your referring provider. If you have questions, please contact your health care provider. EXAM: MR FOOT LEFT WO LOCATION: [facility] DATE: 12/15/2023 INDICATION: Rule out OM and gas in the 5th met; foot pain. COMPARISON: 12/15/2023 radiographs. TECHNIQUE: Unenhanced. FINDINGS: JOINTS AND BONES: -There are low T1 high T2 marrow changes involving the distal phalanx of the fifth toe with associated erosive/destructive changes compatible with osteomyelitis. There may also be osteomyelitis involving the middle phalanx of the fifth toe. There is an ulcer along the plantar margin of the fifth metatarsal head is some reactive osteitis. No debbie osteomyelitis in this location. Partial amputation of the great toe of the MTP joint. TENDONS: -No tendon tear, tendinopathy, or tenosynovitis. LIGAMENTS: -Lisfranc ligament: Intact. No subluxation. MUSCLES AND SOFT TISSUES: -No discrete fluid collection to suggest an abscess. Mild dorsal subcutaneous edema or cellulitis. Moderate global atrophy of the intrinsic musculature of the foot. Procedure Note Alvaro Toribio MD - 12/15/2023 For Patients: As a result of the 21st Century Cures Act, medical imagingexams and procedure reports are released immediately into your electronicmedical record. You may view this report before your referring provider.If you have questions, please contact your health care provider. EXAM: MR KASIA JONES WO LOCATION: [facility] DATE: 12/15/2023 INDICATION: Rule out OM and gas in the 5th met; foot pain. COMPARISON: 12/15/2023 radiographs. TECHNIQUE: Unenhanced. FINDINGS: JOINTS AND BONES: -There are low T1 high T2 marrow changes involving the distal phalanx ofthe fifth toe with associated erosive/destructive changes compatible withosteomyelitis. There may also be osteomyelitis involving the middlephalanx of the fifth toe. There is an ulcer along the plantar margin ofthe fifth metatarsal head is some reactive osteitis. No frankosteomyelitis in this location. Partial amputation of the great toe of theMTP joint. TENDONS: -No tendon tear, tendinopathy, or tenosynovitis. LIGAMENTS: -Lisfranc ligament: Intact. No subluxation. MUSCLES AND SOFT TISSUES: -No discrete fluid collection to suggest an abscess. Mild dorsalsubcutaneous edema or cellulitis. Moderate global atrophy of the intrinsicmusculature of the foot. IMPRESSION: 1. Changes of osteomyelitis involving the distal phalanx of the fifth toeas well as likely the fifth middle phalanx. 2. Reactive osteitis in the fifth metatarsal head without frankosteomyelitis. 3. Moderate global atrophy of the intrinsic musculature of the foot. Moni Duncan NP MR * SCAN-CARDIAC STRIP (12/15/2023 4:00 PM CDT) Scanner OTHER * SCAN-CARDIAC STRIP (12/15/2023 9:14 AM CDT) Scanner OTHER * 12 Lead EKG (12/15/2023 8:10 AM CDT) Only the most recent of2 resultswithin the time period is included. Interpretation Normal sinus rhythm Normal ECG BEYOND NOW Ventricular Rate 74 BPM BEYOND NOW Atrial Rate 74 BPM BEYOND NOW P-R Interval 166 ms BEYOND NOW QRS Duration 90 ms BEYOND NOW QT 406 ms BEYOND NOW QTc 450 ms BEYOND NOW P [place] 25 degrees BEYOND NOW R [place] 58 degrees BEYOND NOW T [place] 83 degrees BEYOND NOW 12/15/2023 8:10 AM CDT 12/15/2023 3:36 PM CDT Eyad Dick MD EKG ORD BEYOND NOW [place], [place] * (ABNORMAL) TROPONIN T (HS) ONE TIME (12/15/2023 4:47 AM CDT) Only the most recent of2 resultswithin the time period is included. TROPONIN T HS 74(H) 6-15 ng/L ng/L 12/15/2023 5:[address] [facility] Blood BLOOD SPECIMEN / Unknown Butterfly / Unknown 12/15/2023 4:47 AM CDT 12/15/2023 5:19 AM CDT Eyad Dick MD CHEMISTRY [facility] SENDOUT INTERNAL ZIP [id number] [place] [address] * (ABNORMAL) TROPONIN T (HS) ACUTE W/2HR REFLEX (12/15/2023 3:08 AM CDT) TROPONIN T HS 73(H) 6-15 ng/L ng/L 12/15/2023 3:[address] [facility] Blood BLOOD SPECIMEN / Unknown Butterfly / Unknown 12/15/2023 3:08 AM CDT 12/15/2023 3:[address] [facility] - 12/15/2023 3:35 AM CDT hs-cTnT (Elecsys Troponin T Gen 5) [...] low risk in emergency department patient population. Eyad Dick MD CHEMISTRY [facility] SENDOUT INTERNAL [facility] [id number] [place] [address] * (ABNORMAL) HEPATIC FUNCTION PANEL (12/15/2023 3:08 AM CDT) Only the most recent of2 resultswithin the time period is included. ALBUMIN 3.3(L) 4.0 - 4.9 g/dL 12/15/2023 3:[address] [facility] PROTEIN,TOTAL 7.1 6.0 - 8.0 g/dL 12/15/2023 3:[address] [facility] BILIRUBIN,TOTAL 0.6 0.0 - 1.2 mg/dL 12/15/2023 3:[address] [facility] BILIRUBIN,DIRECT 0.3(H) 0.0 - 0.2 mg/dL 12/15/2023 3:[address] [facility] BILIRUBIN,INDIRE CT 0.3 0.2 - 0.8 mg/dL 12/15/2023 3:[address] [facility] ALK PHOSPHATASE 120 40 - 129 IU/L 12/15/2023 3:[address] [facility] ALT (SGPT) 233(H) 10 - 50 IU/L 12/15/2023 3:[address] [facility] AST (SGOT) 213(H) 10 - 50 IU/L 12/15/2023 3:[address] [facility] Blood BLOOD SPECIMEN / Unknown Butterfly / Unknown 12/15/2023 3:08 AM CDT 12/15/2023 3:13 AM CDT Eyad Dick MD CHEMISTRY 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 No acute fracture or dislocation. There is erosion at the PIP joint of the second toe which may be due to osteomyelitis. Old deformity of the head of the third metatarsal. Multiple vascular calcifications. Narrative 12/15/2023 3:02 AM CDT For Patients: As a result of the Cures Act, medical imaging exams and procedure reports are released immediately into your electronic medical record. You may view this report before your referring provider. If you have questions, please contact your health care provider. EXAM: XR FOOT 3 VIEWS LEFT PORTABLE LOCATION: [facility] MEDICAL [facility]AG[facility] DATE: 12/15/2023 INDICATION: Ulcer. Evaluate for osteomyelitis. COMPARISON: None. Procedure Note Pelon Byrne MD - 12/15/2023 For Patients: As a result of the s Act, medical imagingexams and procedure reports are released immediately into your electronicmedical record. You may view this report before your referring provider.If you have questions, please contact your health care provider. EXAM: XR FOOT 3 VIEWS LEFT PORTABLE LOCATION: [facility] DATE: 12/15/2023 INDICATION: Ulcer. Evaluate for osteomyelitis. COMPARISON: None. 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 No acute fracture or dislocation. There iserosion at the PIP joint of the second toe which may be due toosteomyelitis. Old deformity of the head of the third metatarsal. Multiplevascular calcifications. Eyad Dick MD GENERAL IMAGING * SCAN-CARDIAC STRIP (12/15/2023 2:06 AM CDT) Scanner OTHER * SCAN-RADIOLOGY REPORT (12/14/2023 12:00 AM CDT) Anatomical Region Laterality Modality Other Scanner OTHER * XR CHEST 2 VIEWS PA AND [...] (11/07/2023 12:00 AM CDT) Scanner OTHER * ECHO TTE COMPLETE WO CONTRAST (10/24/2023 11:01 AM CDT) AORTIC VALVE MEAN PG 4 mmHg LVEDD 5.2 cm EJECTION FRACTION 55 - 60% Anatomical Region Laterality Modality Ultrasound 10/24/2023 9:54 AM CDT Narrative 10/24/2023 11:09 AM CDT ECHOCARDIOGRAM MACO VINAY ? Accession#: ?? [id number] : ?1980 43 years Study Date: ?? 10/24/2023 9:54:07 AM Gender: M ?BP: ? 180/83 mmHg Height: 175.00 cm ?BSA: ?2.10 m? ? ? Weight: 95.00 kg ? Tech: ? CJG ? Referring MD: EYAD WALLACE Site: ? [facility] Reading Location: [facility]W IP Patient Location: [...] detected. Comparison Compared to prior exam of STORE MANAGER, there has been no significant change. Chamber [...] . This study was interpreted by an [facility] accredited facility. ??Final ?? Procedure Note Alex Weaver MD - 10/24/2023 ECHOCARDIOGRAM MACO STEIN : 1980 43 years Study Date: 10/24/2023 9:54:07 AM Gender: M BP: 180/83 mmHg Height: 175.00 cm BSA: 2.10 m? ? ? Weight: 95.00 kg Tech: ARIAN Referring MD: EYAD WALLACE Site: [facility] Reading [facility] Patient Location: Inpatient. Procedure: 2D [...] detected. Comparison Compared to prior exam of STORE MANAGER, there has been no significant change. Chamber [...] HBSAG Nonreactive Nonreactive 10/24/2023 10:42 AM CDT [facility] Blood BLOOD SPECIMEN / Unknown Venipuncture / Unknown 10/24/2023 7:01 AM CDT 10/24/2023 8:32 AM CDT Rabia Husain MD SEND OUT S [facility] [address] [place] [address], * (ABNORMAL) Electrolyte panel AM (10/24/2023 7:01 [...] 8:32 AM CDT Eyad Wallace MD CHEMISTRY [facility] [address] [address], [place] * US VENOUS LOWER EXTREMITY BILATERAL [...] significant sonographic abnormality appreciated. Dictated by Tejas oMntiel MD @ 10/23/2023 9:38:09 PM (Electronically Signed) Eyad Wallace MD [place] * (ABNORMAL) LIPID PANEL (12/06/2021 3:00 PM CDT) CHOLESTEROL,TOTAL 163 100 - 199 mg/dL 12/07/2021 3:15 PM T [facility] TRIGLYCERIDES 272(H) <150 mg/dL 12/07/2021 3:15 PM T [facility] HDL CHOLESTEROL 23(L) >40 mg/dL 2 3:15 PM CDT [facility] NON-HDL CHOLESTEROL 140 <145 mg/dl 12/07/2021 3:15 PM T [facility] CHOL/HDL RATIO 7.09(H) <4.50 12/07/2021 3:15 PM T [facility] LDL CHOLESTEROL 86 <=130 mg/dL 12/07/2021 3:15 PM T [facility] VLDL CHOLESTEROL 54(H) <=30 mg/dL 12/07/2021 3:15 PM T [facility] PROVIDER ORDERED STATUS RANDOM 12/07/2021 3:15 PM T [facility] Blood BLOOD SPECIMEN / Unknown 12/06/2021 3:00 PM CDT 12/07/2021 2:54 PM CDT Aidee Sher NP CHEMISTRY [facility] [address] [place] [address] from Last 3 Months or Most Recently Relevant to Health Maintenance Advance Directives Documents on File Type Date Recorded Patient Rubber Calender Helper Expl anation Healthcare Directive 09/26/2022 023 * Full Code (Latest Code Status on File) Date Activated Date Inactivated Comments 12/15/2023 2:19 AM Question Answer Comments Code Status Discussion: Reviewed Preferences * Full Code Date Activated Date Inactivated Comments 10/23/2023 8:52 PM 10/26/2023 1:29 AM Question Answer Comments Code Status Discussion: Reviewed Preferences * Full Code Date Activated Date Inactivated Comments 09/15/2022 5:47 PM 09/27/2022 6:10 PM Question Answer Comments Code Status Discussion: Reviewed Preferences Care Teams Plate Mounter Relationship Specialty Start Date End Date Daysi Pires PA [address] [place] [address] PCP - General Physician Wood Form Builder 06/04/23
--- OUTSIDE RECORDS SUMMARY | 2023-12-17 19:33 | XMS_ITS | Encounter Summary ---
Author Organization [facility] Address [address] [place] [address] Phone Care Team Providers Care Corporate Consultant Name Role Phone Unavailable Primary Care Provider Unavailabl e Encounter Details Date Type Department Care Team (Latest Contact Info) Description 11/20/2023 12:29 PM CDT - 11/20/2023 11:59 PM CDT Hospital Encounter [facility] [address] [place], [place] [id number] Blayne Quiroz MD [address] [phone] Discharge Disposition: Discharged to home or self [...] st Contact Info) Description 01/01/2024 2:00 PM PULLEY MAINTAINER Office Visit Transplant Program [address] [place] [address] Ning Leiva MD [address] [place], [place] [address] Scheduled Discharge Disposition: Discharged to home or [...] Impression: Clear lungs. Reading Radiologist: Claudia Doll 11/20/2023 1:06 PM CDT Technique: XR CHEST [...]
--- OUTSIDE RECORDS SUMMARY | 2023-12-17 19:33 | XMS_ITS | Encounter Summary ---
Author Organization [facility] Address [address] [place] [address] Phone Care Team Providers Care Grades 1 Thru 5 Teacher Name Role Phone Unavailable Primary Care Provider Unavailabl e Encounter Details Date Type Department Care Team (Late st Contact Info) Description 09/26/2023 Abstract Transplant Program [address] [place] [address] Williams Lindquist, Transplant Circus Trainer [address] [place] [address] Social History Tobacco Use Types Packs/Day Years Used Date Smoking Tobacco: Never Assessed Sex and Gender Information Value Date Recorded Sex Assigned at Not on file Gender Identity Not on file Sexual Orientation Not on file documented as of this encounter Plan of Treatment Upcoming Encounters Date Type Department Care Team (Late st Contact Info) Description 01/01/2024 2:00 PM CAN REFORMING MACHINE OPERATOR Office Visit Transplant Program [address] [place] [address] Ning Leiva MD [address] [facility] [address] [place] [address] Scheduled Discharge Disposition: Discharged to home or self care documented as of this encounter Visit Diagnoses Not on filedocumented in this encounter
--- OUTSIDE RECORDS SUMMARY | 2023-12-17 19:33 | XMS_ITS | Encounter Summary ---
Author Organization [facility] Address [address] [place] [address] Phone Care Team Providers Care Market Garden Worker Name Role Phone Unavailable Primary Care Provider Unavailabl e Encounter Details Date Type Department Care Team (Late st Contact Info) Description 10/03/2023 Documentation Only Transplant Program [address] [place], [place] [phone] Williams Lindquist Transplant Erector Operator [address] [place], [place] [address] Social History Tobacco Use Types Packs/Day Years Used Date Smoking Tobacco: Never Assessed Sex and Gender Information Value Date Recorded Sex Assigned at Not on file Gender Identity Not on file Sexual Orientation Not on file documented as of this encounter Progress Notes * Williams Lindquist Transplant Erector Operator - 10/03/2023 9:12 AM CDT D/A: Received message from patient's daughter stating his Emergency Medical Assistance insurance isin place again. This was verified by [facility] website. Patient contacted and informed someone will becontacting him to reschedule the appointments that had to be canceled in August. Also talked with himabout applying for Uncompensated Care and patient requested an email be sent to him with the numberto call. Brenna Lindquist Transplant Erector Operator, Tuesday October 03, 2023 09:16 documented in this encounter Plan of Treatment Upcoming Encounters Date Type Department Care Team (Late st Contact Info) Description 01/01/2024 2:00 PM COPPER ETCHER Office Visit Transplant Program [address] [place] [address] Ning Leiva MD [address] [place] [address] Scheduled Discharge Disposition: Discharged to home or self care documented as of this encounter Visit Diagnoses Not on filedocumented in this encounter
--- OUTSIDE RECORDS SUMMARY | 2023-12-17 19:33 | XMS_ITS | Encounter Summary ---
Author Organization [facility] Address [address] [place] [address] Care Team Providers Care Product Mgmt Dev Manager Name Role Phone No, Pcp Primary Care Provider [phone] Encounter Details Date Type Department Care Team (Late st Contact Info) Description 12/02/2023 Orders Only [facility] [address] [place] [address] Julito Cortez MD [address] [place] [address] Social History Tobacco Use Types [...] SPKT/V DAUGIRDAS II (HHD & NXSTAGE) 0.78 [facility] 12/02/2023 12/02/2023 [facility] Ordering Provider LAB BLOOD ORDERABLES Final Result [facility] Center Contact Performing lab Unknown, [place] * (ABNORMAL) HD KINETICS (12/02/2023) Pathologist [facility] % Urea Reduction 52(L) 65 - 80 % [facility] 12/02/2023 12/04/2023 10: 54 AM CDT Narrative [facility] - 12/04/2023 Unless otherwise specified, test(s) performed at: [facility]!, [address] [place] [address], [place] [address] CASE MANAGEMENT ASSOCIATE: Gurdeep Ricardo M.D., Ph.D For any questions, please call customer service at FREQUENCY:MONTHLY Resulting Agency Comment Specimen source: Plasma Julito Cortez MD LAB BLOOD ORDERABLES Final Resul t [facility] See order comments or contact performing lab Unknown, [place] * (ABNORMAL) [facility] (12/02/2023) Pathologist [facility] BUN 42(H) 6 - 19 mg/dL [facility] [...] 12/02/2023 12/04/2023 9:3 8 AM CDT Narrative [facility] - 12/05/2023 Unless otherwise specified, test(s) performed at: [facility]!, [address] [place] [address], [place] [address] CASE MANAGEMENT ASSOCIATE: Gurdeep Ricardo M.D., Ph.D For any questions, please call customer service at FREQUENCY:MONTHLY Resulting Agency Comment Specimen source: Serum Juliot Cortez MD LAB BLOOD ORDERABLES Edited Resu lt - Final Performing Organization Address [facility] de Phone Number [facility] [employer] [facility] See order comments or contact performing lab Unknown, [place] * (ABNORMAL) [facility] (12/02/2023) PTH 357(H) 16 - 80 pg/mL [facility] 12/02/2023 12/04/2023 10: 16 AM CDT Narrative [facility] - 12/04/2023 Unless otherwise specified, test(s) performed at: [facility] [address] [place] [address], [place] [address] CASE MANAGEMENT ASSOCIATE: Gurdeep Ricardo M.D., Ph.D For any questions, please call customer service at FREQUENCY:MONTHLY Resulting Agency Comment Specimen source: Plasma Julito Cortez MD LAB BLOOD ORDERABLES Final Resul t Performing Organization Address [facility] de Phone Number [facility] [employer] [facility] See order comments or contact performing lab Unknown, [place] * (ABNORMAL) POST CHEMISTRY (12/02/2023) BUN Post Dialysis 20(H) 6 - 19 mg/dL [facility] 12/02/2023 12/04/2023 10: 54 AM CDT Narrative [facility] - 12/04/2023 Unless otherwise specified, test(s) performed at: [facility] [address] [place] [address], [place] [address] CASE MANAGEMENT ASSOCIATE: Gurdeep Ricardo M.D., Ph.D For any questions, please call customer service at FREQUENCY:MONTHLY Resulting Agency Comment Specimen source: Plasma Julito Cortez MD LAB BLOOD ORDERABLES Final Resul t [facility] See order comments or [...] 12/02/2023 12/04/2023 10: 16 AM CDT Narrative [facility] 12/04/2023 Unless otherwise specified, test(s) performed at: [facility]!, [address] [place] [address] CASE MANAGEMENT ASSOCIATE: Gurdeep Ricardo M.D., Ph.D For any questions, please call customer service at FREQUENCY:MONTHLY Resulting Agency Comment Specimen source: Blood us Julito Cortez MD LAB BLOOD ORDERABLES Final Resul t [facility] See order comments or contact performing lab Unknown, [place] documented in this encounter Visit Diagnoses Not on filedocumented in this encounter Care Teams Product Mgmt Dev Manager Relationship Specialty Start Date End Date No, Pcp PCP - General Internal Medicine 09/10/23 documented as of this encounter
--- OUTSIDE RECORDS SUMMARY | 2023-12-17 19:34 | XMS_ITS | Encounter Summary ---
Author Organization [facility] Address [address] [place] [address] Care Team Providers Care Marketing Intern Name Role Phone No, Pcp Primary Care Provider [phone] Encounter Details Date Type Department Care Team (Late st Contact Info) Description 09/27/2023 Orders Only [facility] [address] [place] [address] Julito Cortez MD [address] [place] [address] Social History Tobacco Use Types [...] SPKT/V DAUGIRDAS II (HHD & NXSTAGE) 0.93 [facility] 09/27/2023 09/27/2023 [facility] Ordering Provider LAB BLOOD ORDERABLES Final Result [facility] Center Contact Performing lab [...] 09/28/2023 Unless otherwise specified, test(s) performed at: [facility], [address] [place] [address], [place] [address] MGMT CONSULTANT: Gurdeep Ricardo M.D., Ph.D For any [...] ORDERABLES Final Resul t Performing Organization Address [facility] Co de Phone Number [facility] See order comments or contact performing lab Unknown, [place] * (ABNORMAL) POST CHEMISTRY (09/27/2023) BUN Post Dialysis 23(H) 6 - 19 mg/dL [facility] 09/27/2023 09/28/2023 3:1 1 AM CDT Narrative [facility] - 09/28/2023 Unless otherwise specified, test(s) performed at: [facility], [address] [place] [address], [place] [address] MGMT CONSULTANT: Gurdeep Ricardo M.D., Ph.D For any questions, please call customer service at FREQUENCY:MONTHLY Resulting Agency Comment Specimen source: Plasma Julito Cortez MD LAB BLOOD ORDERABLES Final Resul t Performing Organization Address [facility] de Phone Number [facility] [...] 09/27/2023 09/28/2023 2:5 6 AM CDT Narrative [facility] - 09/28/2023 Unless otherwise specified, test(s) performed at: [facility], [address] [place] [address], [place] [address] MGMT CONSULTANT: Gurdeep Ricardo M.D., Ph.D For any questions, please call customer service at FREQUENCY:MONTHLY Resulting Agency Comment Specimen source: Serum Julito Cortez MD LAB BLOOD ORDERABLES Final Resul t Performing Organization Address [facility] de Phone Number [facility] See order comments or contact performing lab Unknown, [place] * (ABNORMAL) [facility] (09/27/2023) PTH 291(H) 16 - 80 pg/mL [facility] 09/27/2023 09/28/2023 3:0 3 AM CDT Narrative [facility] - 09/28/2023 Unless otherwise specified, test(s) performed at: [facility], [address] [place] [address], [place] [address] MGMT CONSULTANT: Gurdeep Ricardo M.D., Ph.D For any questions, please call customer service at FREQUENCY:MONTHLY Resulting Agency Comment Specimen source: Plasma us Julito Cortez MD LAB BLOOD ORDERABLES Final Resul t Performing Organization Address [facility] de Phone Number [facility] See order comments or contact performing lab Unknown, [place] documented in this encounter Visit Diagnoses Not on filedocumented in this encounter Care Teams Marketing Intern Relationship Specialty Start Date End Date No, Pcp PCP - General Internal Medicine 09/10/23 documented as of this encounter
--- OUTSIDE RECORDS SUMMARY | 2023-12-17 19:34 | XMS_ITS | Encounter Summary ---
Author Organization [facility] Address [address] [place] [address] Care Team Providers Care Soccer Ball Assembler Name Role Phone No, Pcp Primary Care Provider [phone] Encounter Details Date Type Department Care Team (Late st Contact Info) Description 11/08/2023 Orders Only [facility] [place] [address] [place] [address] Julito Cortez MD [address] [place] [address] Social History Tobacco Use [...] 11/10/2023 Unless otherwise specified, test(s) performed at: [facility], [address] [place] [address], [place] [address] MATERIALS PLANNING ANALYST: Gurdeep Ricardo M.D., Ph.D For any questions, please call customer service at FREQUENCY:OTHER Resulting Agency Comment Specimen source: Serum us Julito Cortez MD LAB BLOOD ORDERABLES Final Resul t [facility] See order comments or contact performing lab Unknown, [place] documented in this encounter Visit Diagnoses Not on filedocumented in this encounter Care Teams Soccer Ball Assembler Relationship Specialty Start Date End Date No, Pcp PCP - General Internal Medicine 09/10/23 documented as of this encounter
--- OUTSIDE RECORDS SUMMARY | 2023-12-17 19:34 | XMS_ITS | Encounter Summary ---
Author Organization [facility] Address [address] [place] [address] Care Team Providers Care Glassware Engraver Name Role Phone No, Pcp Primary Care Provider [phone] Encounter Details Date Type Department Care Team (Late st Contact Info) Description 11/03/2023 Orders Only [facility] [address] [place] [address] Julito [place] MD [address] [place] [address] Social History Tobacco Use Types [...] Results * [facility] Results (11/03/2023) [facility] Simple KT/V (HHD and NXSTAGE) 0.65 [facility] SPKT/V DAUGIRDAS II (HHD & NXSTAGE) 0.81 [facility] WSTDKT/V 2.6 [facility] 11/03/2023 11/03/2023 [facility] Ordering Provider LAB BLOOD ORDERABLES Final Result Performing Organization Address [facility]/ZIP Co de Phone Number [facility] Center Contact Performing lab Unknown, [...] 11/06/2023 Unless otherwise specified, test(s) performed at: [facility], [address] [place] [address], [place] [address] SPEECH THERAPIST TECHNICIAN: Gurdeep Ricardo M.D., Ph.D For any [...] ORDERABLES Final Resul t Performing Organization Address [facility] de Phone Number [facility] See order comments or contact performing lab Unknown, [place] * (ABNORMAL) POST CHEMISTRY (11/03/2023) BUN Post Dialysis 23(H) 6 - 19 mg/dL [facility] 11/03/2023 11/06/2023 10: 47 AM CDT Narrative [facility] - 11/06/2023 Unless otherwise specified, test(s) performed at: [facility], [address] [place] [address], [place] [address] SPEECH THERAPIST TECHNICIAN: Gurdeep Ricardo M.D., Ph.D For any questions, please call customer service at FREQUENCY:MONTHLY Resulting Agency Comment Specimen source: Plasma Julito [place] MD LAB BLOOD ORDERABLES Final Resul t Performing Organization Address [facility] de Phone Number [facility] [...] 11/03/2023 11/06/2023 10: 28 AM CDT Narrative [facility] - 11/06/2023 Unless otherwise specified, test(s) performed at: [facility], [address] [place] [address], [place] [address] SPEECH THERAPIST TECHNICIAN: Gurdeep Ricardo M.D., Ph.D For any questions, please call customer service at FREQUENCY:MONTHLY Resulting Agency Comment Specimen source: Serum Result [facility] Julito [place] MD LAB BLOOD ORDERABLES Final Resul t [facility] See order comments or contact performing lab Unknown, [place] * (ABNORMAL) [facility] Chemistry (11/03/2023) PTH 328(H) 16 - 80 pg/mL [facility] 11/03/2023 11/06/2023 10: 37 AM CDT Narrative [facility] - 11/06/2023 Unless otherwise specified, test(s) performed at: [facility], [address] [place] [address], [place] [address] SPEECH THERAPIST TECHNICIAN: Gurdeep Ricardo M.D., Ph.D For any questions, please call customer service at FREQUENCY:MONTHLY Resulting Agency Comment Specimen source: Plasma us Julito [place] MD LAB BLOOD ORDERABLES Final Resul t [facility] See order comments or contact performing lab Unknown, [place] documented in this encounter Visit Diagnoses Not on filedocumented in this encounter Care Teams Glassware Engraver Relationship Specialty Start Date End Date No, Pcp PCP - General Internal Medicine 09/10/23 documented as of this encounter
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
--- OUTSIDE RECORDS SUMMARY | 2023-12-17 19:34 | XMS_ITS | Encounter Summary ---
Author Organization [facility] Address [address] [place] [address] Care Team Providers Care Chief Sustainability Officer Name Role Phone No, Pcp Primary Care Provider [phone] Encounter Details Date Type Department Care Team (Late st Contact Info) Description 09/10/2023 Orders Only [facility] [place] [address] [place] [address] Julito [place] MD [address] [place] [address] Social History Tobacco Use Types [...] (09/10/2023) Potassium 6.0(H) 3.5 - 5.1 mEq/L [facility] 09/10/2023 09/11/2023 3:3 0 AM CDT Narrative [facility] - 09/11/2023 Unless otherwise specified, test(s) performed at: [facility], [address] [place] [address], [place] [address] COMMODITIES CLERK: Gurdeep Ricardo M.D., Ph.D For any questions, please call customer service at FREQUENCY:OTHER Resulting Agency Comment Specimen source: Serum us Julito [place] MD LAB BLOOD ORDERABLES Final Resul t [facility] See order comments or contact performing lab Unknown, [place] documented in this encounter Visit Diagnoses Not on filedocumented in this encounter Care Teams Chief Sustainability Officer Relationship Specialty Start Date End Date No, Pcp PCP - General Internal Medicine 09/10/23 documented as of this encounter
--- OUTSIDE RECORDS SUMMARY | 2023-12-17 19:34 | XMS_ITS | Encounter Summary ---
Author Organization [facility] Address [address] [place] [address] Care Team Providers Care Rubber And Pounder Name Role Phone No, Pcp Primary Care Provider [phone] Encounter Details Date Type Department Care Team (Late st Contact Info) Description 11/22/2023 Treatment [facility] [place] [address] [place] [address] Julito [place] MD [address] [place] [address] Social History Tobacco Use Types [...] Name: Maco Stein : 1980 Chart #: [id number] Sex: M This patient was personally seen for a complete visit as part of routine monthly dialysis care. A review of the dialysis treatment, blood pressure, estimated dry weight and recent lab values was made. These were discussed with the patient and staff as necessary. EXCEPTIONAL STUDENT EDUCATION AIDE: Julito [place] MD LOCATION: [place] [address]/[phone] SCHEDULE: EDW: kg. DIALYZER: HD DURATION: NEEDLE [...] CP. has appt next week at [facility]xp. 06/15/23: Feels well. no concerns. cost was a barrier to getting the Lokelma, hasn't obtained it,yet. 05/01/23: Feels well. no SOB or CP. No N/v/d. Stable wt. BP's are better. 04/10/23: Feels well, 2nd day with 2 16 g needles in. no SOB or CP. 03/01/23: HD going well. but having L AVF/arm discomfort/numbness, worse on the run. has appt at [facility] next Tu with Dr. Solorzano. fingers cool but not cold, no weakness, no pain. Interested in HHD and going to for education tomorrow. referred for txp to [facility]. 01/24/23: Feels well, got his AVF at [facility] yesterday. no arm pain. no SOB or CP. 12/25/22: BP is better after lowering his meds. still has ringing in his ears at end of every run, and leaving about EDW and no edema or SOB. Going for AVF soon. still can't do Txp eval until insurance is confirmed. 11/24/22: Feels fine today. No SOB or CP. hasn't been to [facility], yet. no N/V. 11/01/22: my second time seeing him. feels better. has had some tinnitus. BP is high but no MORA, blurry vision, CP or SOB. appetite is better. Taking losartan 50 mg/d. 10/02/22: My first time meeting him. his second time here, started here 09/29. Came from [facility] where he initiated. Feels ok today. no SOB or CP Advanced Practitioner Subjective COMPOUNDING TECHNICIAN 08/01/2023:Seen on dialysis. Doing well. No SOB, or chest pain reported. Arm access working well; no reported issues. BP slightly elevated. Leaving close to EDW. Potassium improved. Continue plan ofcare. COMPOUNDING TECHNICIAN 06/06/2023: Patient seen on dialysis. Doing well. [...] mouth twice a day 07/13/2023 RenaPlex-D (vit b,e-nj-wmuj-selen-vit d3-e) 800 mcg-12.5 mg-2,000 unit tablet Take [...] of access: Fistula Surgeon - IR at [facility] Staff and patient report access is working well. Send to Surgeon for access creation. 04/10/23: using AVF d #2 today. 03/01/23: may have steal, going to see surgeon 03/06/23 11/29/23 L AVF at [facility] 01/23/23 (see OP note) 12/25/22: has [facility] appt upcoming 11/01/22: needs AVF eval at [facility] 10/02/22: needs AVF eval at [facility] Anemia Assessment HEMOGLOBIN (G/DL) IN BLOOD g/dL [...] K+ diet education ongoing 08/13/23: Labs pending COMPOUNDING TECHNICIAN 02/08/2023: Educated on low potassium foods. Bone [...] at goal. Intact PTH is at goal. Aerographer will adjust binders and vitamin D per protocol and continue to provide dietary education. 08/13/23: Labs pending Cardiovascular Assessment Blood pressures reviewed and are acceptable. Intradialytic weight gains are appropriate. Estimated dry weight is appropriate. Continue same cardiovascular medications. 11/22/23: erratic BP's and keep log and report to us in 1-2 wks. COMPOUNDING TECHNICIAN 05/11/2023 decreased to 95.5 kg 03/01/23: increase 96 12/25/22: increase 93.5 11/24/22: increase 92 11/01/22: increase losartan to 100 mg q evening. next would add CCB, edw 93.5 COMPOUNDING TECHNICIAN 10/09/2022: Had been still taking hydralazine; not started losartan. Instructed to make change 10/02/22: d/c hydralazine, add Losartan 50 mg q evening. Transplant Status: Patient has been referred. Center - [facility] 04/10/23: got his LEA in Jan and was referred to [facility], still waiting to hear back 11/24/22: not [...] on filedocumented in this encounter Care Teams Rubber And Pounder Relationship Specialty Start Date End Date No, Pcp PCP - General Internal Medicine 09/10/23 documented as of this encounter
== END 2023-12-15 00:51 | disposition home or self-care (01) ==
LOC: AMB 12-17 19:30
PROVIDERS: PCP Physician Assistant Medical; Visit Provider Family Medicine
DX: R55 Syncope and collapse (principal); D64.9 Anemia, unspecified; I95.9 Hypotension, unspecified; R74.01 Elevation of levels of liver transaminase levels; N19 Unspecified kidney failure; E11.628 Type 2 diabetes mellitus with other skin complications
CPT/HCPCS: A0425; A0427

== ENCOUNTER 2024-05-02 06:30 | Outpatient (CLI) | payer MEDICAID, SELFPAY | END 2024-05-02 06:31 | disposition home or self-care (01) | LOC: AMB 05-07 10:57 | PROVIDERS: PCP Physician Assistant Medical; Visit Provider Internal Medicine | DX: I46.9 Cardiac arrest, cause unspecified (principal) | CPT/HCPCS: A0425; A0433 ==

== ENCOUNTER 2024-05-02 07:16 | Emergency (ER) | payer MEDICAID, SELFPAY ==
[2024-05-02] VITALS (24 sets, daily range): BP systolic 79–202; BP diastolic 49–126; PULSE 76–126; RESP 9–22; O2SAT 35–98
[2024-05-02] MEDS: EPINEPHrine 0.1 MG/ML SYRINGE 1 MG IVP ×3 (07:18→07:28)
--- OUTSIDE RECORDS SUMMARY | 2024-05-02 07:19 | XMS_ITS | CONTINUITY OF CARE DOCUMENT ---
Author Name User, QIE Address [address] [place] [address] 20 [place] [address] Organization [facility] Address [address] [place] [address] 2 [place] [address] Phone [phone] Care Team Providers Care Overhead Distribution Engineer Name Role Phone User, QIE Unavailable Unavailable PROBLEMS Condition Status Date Provider Notes Organizati on CKD STAGE ESRD ON DIALYSIS GFR <15 active Shital Fuentes , [address] [place] [address] [address] [facility] [address] [facility] ENCOUNTERS Date Type Provider Location Encounter Diag nosis - In-person encounter Office Visit Ghada Everett MD, MD, [address] [place] [address] [address] [facility] [address] [facility] - In-person encounter Office Visit Ghada Everett MD, MD, [address] [place] [address] 20 [facility] [address] [facility] CKD STAGE ESRD ON DIALYSIS GFR <15 VITAL SIGNS Date Observation Value Provider Organization blood pressure, diastolic 92 mm[Hg] Gennaro Raymond RN RN, [address] [place] [address] [facility] blood pressure, systolic 199 mm[Hg] Gennaro Raymond RN RN, [address] [place] [address] [address] [facility] [place] blood pressure, site #1 Upper arm Gennaro Raymond RN RN, [address] [place] [address] [facility] [place] blood pressure, diastolic, right arm 92 mm[Hg] Gennaro Raymond RN RN, [address] [place] [address] [address] [facility] [place] blood pressure, systolic, right arm 199 mm[Hg] Gennaro Raymond RN RN, [address] [place] [address] [facility] respiratory rate E&M 12 /min Gennaro abreu RN RN, [address] [place] [address] [address] [facility] [place] pulse rate 84 /min Gennaro Raymond RN RN, [address] [place] [address] [address] [facility] [place] Body Mass Index (Ratio) 31.12 kg/m2 Gennaro Raymond RN RN, [address] [place] [address] [address] [facility] weight E&M 210 [lb_av] Gennaro Raymond RN RN, [address] [place] [address] [address] [facility] [place] temperature E&M 98.1 [degF] Gennaro Raymond RN RN, [address] [place] [address] [address] [facility] [place] height E&M 69 [in_i] Gennaro Raymond RN RN, [address] [place] [address] [address] [facility] [place] Body Mass Index (Ratio) 32.61 kg/m2 Shital Brittony , [address] [place] [address] [address] [place] [address] [facility] weight E&M 220 [lb_av] Shital Fuentes , 6 00 [facility] [address] [place] [address] [facility] height E&M 69 [in_i] Shital Rebaconstanza , 6 [address] [facility] [address] [place] [address] [facility] blood pressure, diastolic 93 mm[Hg] Jade Sung RN RN, [address] [place] [address] [address] [facility] [place] blood pressure, systolic 163 mm[Hg] Jade Sung RN RN, [address] [place] [address] [address] [facility] [place] respiratory rate E&M 16 /min Jade ace RN RN, [address] [place] [address] [address] [facility] [place] blood pressure, site #1 Upper arm Jade Sung RN RN, [address] [place] [address] [address] [facility] blood pressure, diastolic, right arm 93 mm[Hg] Jade Sung RN RN, [address] [place] [address] [address] [facility] blood pressure, systolic, right arm 163 mm[Hg] Jade Sung RN RN, [address] [place] [address] [address] [facility] [id number] [place] [address] [facility] pulse rate 86 /min Jade Sung RN RN, [address] [place] [address] [address] [facility] temperature E&M 98 [degF] Jade molina RN RN, [address] [place] [address] [address] [facility] [place] Body Mass Index (Ratio) 29.94 kg/m2 Jade Sung RN RN, [address] [place] [address] [address] [facility] [place] weight E&M 202 [lb_av] Jade Sung RN RN, [address] [place] [address] [address] [facility] height E&M 69 [in_i] Jade Sung RN RN, [address] [place] [address] [address] [facility] [place] blood pressure, diastolic 81 mm[Hg] Shital Bouley , [address] [place] [address] [address] [facility] [address] [facility] blood pressure, systolic 137 mm[Hg] Shital Bouley , [address] [facility] [address] [facility] [address] [facility] blood pressure, diastolic, right arm 81 mm[Hg] Shital Bouley , [address] [facility] [address] [facility] [address] [facility] blood pressure, systolic, right arm 137 mm[Hg] Shital Bouley , [address] [place] [address] [address] [facility] [address] [facility] blood pressure, site #1 Upper arm Shital Bouley , [address] [facility] [address] [facility] [address] [facility] blood pressure, site #2 Upper arm Shital Bouley , [address] [place] [address] [address] [facility] [address] [facility] blood pressure, diastolic, left arm 85 mm[Hg] Shital Fuentes [address] [place] [address] 2 [place] [address] [facility] blood pressure, systolic, left arm 141 mm[Hg] Shital Fuentes [address] [place] [address] 2 [facility] [address] [facility] pulse rate 83 /min Shital Fuentes 6 00 [facility] 2 [facility] [address] [facility] Body Mass Index (Ratio) 31.12 kg/m2 Shital Fuentes [address] [place] [address] 2 [facility] [address] [facility] weight E&M 210 [lb_av] Shital Fuentes [address] [address] [facility] height E&M 69 [in_i] Shital Fuentes , [address] [address] [facility] ALLERGIES Allergy Name Onset Date Reaction Criticality Status Provider Or ganization LATEX rash,swelling High Criticality active Shital Fuentes [address] 2 [facility] [address] [facility] RESULTS Date Observation Value Provider Organization Refer ence Range Interpretation Location blood glucose, finger stick 122 Jade Sung RN RN, [address] [place] [id number] [place] [address] [facility] HISTORY OF MEDICATION USE Medication Instructions Status Dates Provider Indications Com ments Organization GABAPENTIN 300 MG CAPS 300 300 TAKE ONE CAPSULE BY MOUTH EVERY DAY NEEDED active Shital Ibrahimbeth [address] [place] [address] 2 [facility] [address] [facility] sertraline 50 mg tablet TAKE 1 AND 1/2 TABLETS (75MG) BY MOUTH EVERY MORNING. active Shital Ibrahimbeth [address] [place] [address] [facility] sertraline 25 mg tablet TAKE ONE TABLET(25MG) BY MOUTH EVERY MORNING TAKE WITH THE 50MG TABLET TO TOTAL 75MG DAILY active Shital Ibrahimbeth [address] [place] [address] [facility] carvedilol 6.25 mg tablet TAKE 1 TABLET (6.25 MG) BY MOUTH TWO TIMES DAILY WITH MEALS. active Shital Bouley , [address] [place] [address] [place] [address] [facility] amlodipine 10 mg tablet TAKE 1 TABLET (10 MG) BY MOUTH ONCE DAILY. active Shitalcori Fuentes [address] [place] [address] 2 [place] [address] [facility] losartan 100 mg tablet TAKE ONE TABLET BY MOUTH EVERY DAY active Shital Fuentes [address] [place] [address] 2 [place] [address] [facility] RenaPlex-D 800 mcg-12.5 mg-2,000 unit tablet TAKE 1 TABLET BY MOUTH EVERY DAY active Shital Britton[address] 2 [place] [address] [facility] calcium acetate(phosp hat bind) 667 mg capsule TAKE 1 CAPSULE BY MOUTH THREE TIMES DAILY WITH MEALS active Shital Britton[address] 2 [place] [address] [facility] calcitriol 0.5 mcg capsule take 1 capsule three times a week active Shital [place] [address] [facility] SOCIAL HISTORY Date Observation Value Provider Organization Surgical Procedure 4 U tilizing sterile technique, the patient's right internal jugular tunneled dialysis catheter - permacath was removed. Upon inspection, the catheter was found to be intact. Direct pressure to the catheter site achieved hemostasis. The skin site was clean and dry and sterile dressing applied. The patient tolerated the procedure well without immediate complications. \b PROCEDURE IMPRESSION: \b0 1. Uncomplicated removal of right internal jugular tunneled dialysis catheter - permacath. Kei Gregory MD, MD, [address] [place] [address] [facility] [place] social history reviewed E&M reviewed - no changes required Gennaro Raymond RN RN, [address] [place] [address] [facility] [place] social history reviewed E&M reviewed - no changes required Shital Fuentes [address] [place] [address] 2 [place] [address] [facility] site on body for surgical procedure electric clipper Jade Sung RN RN, [address] [place] [address] [facility] [place] social history reviewed E&M reviewed - no changes required Jade Sung RN RN, [address] [place] [address] [facility] social history reviewed E&M reviewed - no changes required Shital Fuentes , [address] [facility] [address] [facility] [address] [facility] social history E&M S moking History: Korina briones is a former smoker. Shital Fuentes , [address] [facility] [address] [facility] [address] [facility] smoking status Former smoker Shital Fuentes , [address] [facility] [address] [facility] [address] [facility] FAMILY HISTORY Family Member Condition Mother Family History of Hy pertension Mother Family History of Di abetes INSURANCE PROVIDERS Payer name Policy type / Coverage type [place] red green party ID [facility] [id number] TREATMENT PLAN Date Name Provider Vein Mapping Merle Gross DMS, RVT RDMS, RVT, [address] [place] [address] [address] [facility] [address] HISTORY OF PROCEDURES Procedure Date Procedure Name Provider Procedure Notes Status Organizati on Permacath Removal Kei Gregory MD, MD, [address] [place] [address] [address] [facility] [address] completed [facility] Quailty Measures all negative Kei Gregory MD, MD, [address] [place] [address] [address] [facility] [address] completed [facility] SNOMED-CT:PATIENT ENCOUNTER Kei Gregory MD, MD, [address] [place] [address] [address] [facility] [address] completed [facility] SNOMED-CT:PATIENT ENCOUNTER Ghada Everett MD, MD, [address] [facility] [address] completed [facility] Benadryl 50mg Ghada Everett MD, MD, [address] [facility] [address] completed [facility] INJECTION MIDAZOLAM HCL PER 1 MG Ghada Everett MD, MD, [address] [facility] [address] 4.0 mg completed [facility] INJECTION FENTANYL CITRATE 100MCG Ghada Everett MD, MD, [address] [facility] [address] 200 mcg completed [facility] INJ HEPARIN SODIUM PER 1000 UNITS Ghada Everett MD, MD, [address] [place] [address] units completed [facility] INFUS NORMAL SALINE SOLUTION 250 CC Ghada Everett MD, MD, [address] [place] [address] completed [facility] Ancef 1g Ghada Everett MD, MD, [address] [place] [address] completed [facility] Glucose/hemocue Ghada Everett MD, MD, [address] [place] [address] completed [facility] Creation of Brachicephalic, Radiocephalic, Brachiobasilic Ghada Everett MD, MD, [address] [place] [address] left brachiocephalic completed [facility] Antibiotic initiated on time-Yes Ghada Everett MD, MD, [address] [place] [address] completed [facility] Quailty Measures all negative Ghada Everett MD, MD, [address] [place] [address] completed [facility] SNOMED-CT:PATIENT ENCOUNTER Ghada Everett MD, MD, [address] [place] [address] completed [facility] SNOMED-CT:PATIENT ENCOUNTER Ghada Everett MD, MD, [address] [place] [address] completed [facility]
--- OUTSIDE RECORDS SUMMARY | 2024-05-02 07:19 | XMS_ITS ---
Author Organization [facility] Address [address] [place] [address] Phone Care Team Providers Care Materials Manager Name Role Phone Unavailable Primary Care Provider Unavailabl e Transplant Episode Kidney Candidate [facility] ([place], [place]) - [facility] Evaluation began on 11/20/2023 Marked as Active on 11/20/2023 Kidney CoordinatorChinyere Valencia RN Phone: N/A Fax: N/A Email: N/A Infection History Noted Survival Infection Treatment Organism Resolved 12/18/2023 Diabetic foot infection ([facility]) Care Team Name Role Phone Fax Email Chinyere Valencia RN Kidney Coordinator N/A N/A N/A Jean Ochoa DO [facility] Info Surgeon [phone] N/A Julito Cortez MD Remote Sensing Technologist Referring Remote Sensing Technologist Referring Provider [phone] N/A Kidney Spec [facility]erring [facility] [phone] N/A Chinyere Valencia RN TX[facility] Pre Coordinator N/A N/A N/A Events Pre-Transplant Referred: 05/11/2023 Evaluation began: 11/20/2023 Committee: 07/20/2023 Dialysis History Dialysis History Start End Type Comments Center Home Hemod[place] [facility] Information Center Phone Fax Address [facility] [phone] [address] [facility] [address]
--- OUTSIDE RECORDS SUMMARY | 2024-05-02 07:19 | XMS_ITS | Clinical Summary ---
Author Organization [facility] Address [address] [place] [address] Care Team Providers Care Flaring Machine Operator Name Role Phone Daysi Pires Primary Care Provider Allergies Active Allergy Reactions Criticality Noted Date Comments Latex *Unknown 09/15/2022 Tramadol *Unknown 09/15/2022 Medications calcitrioL 0.5 mcg capsuleIndications:Sec ondary hyperparathyroidism of renal origin (HC) Take one tablet by mouth on Mondays, Wednesdays, and Fridays. 30 Capsule 09/28/19 23 3:38 PM CDT 023 Active losartan (COZAAR) 100 mg tabletIndications:HTN (hypertension) Take 100 mg by mouth once daily. 0 023 Active amLODIPine (NORVASC) 10 mg tablet Take 10 mg by mouth once daily. 024 Active RenaPlex-D 800 mcg-12.5 mg -2,000 unit tab Take 1 Tablet by mouth once daily. 024 Active sevelamer carbonate (RENVELA) 800 mg tab tablet TAKE 3 TABLETS BY MOUTH THREE TIMES DAILY WITH MEALS 024 Active vit C/E/cuperic/zinc/lutei n (PRESERVISION LUTEIN ORAL) Take 1 Capsule by mouth at bedtime. Active albuterol HFA (PRO-AIR; VENTOLIN; PROVENTIL) 90 mcg/actuation inhaler Inhale 1-2 Puffs by mouth 4 times daily if needed for Shortness Of Breath. Active sensor (Verdex TechnologiesStyle Gale 3 Sensor) for continuous blood glucose monitor (CGM)Indications:Type 2 diabetes mellitus with chronic kidney disease on chronic dialysis, with long-term current use of insulin (HC) To be used to read blood sugars, change sensor every 14 days. 6 Each 3 024 Active carvediloL (COREG) 6.25 mg tablet Take 6.25 mg by mouth two times daily. Active insulin aspart protamine-insulin aspart (NovoLOG Mix 70-30 U-100 Insuln) 100 unit/mL (70-30) injection Inject 60 units subcutaneous once daily. Depends on blood sugar. Active traZODone (DESYREL) 50 mg tabletIndications:Inso mnia, idiopathic Take 1 Tablet (50 mg) by mouth at bedtime. 31 Tablet 024 Active cadexomer iodine (Iodosorb) 0.9 % gelIndications:Dehisce nce of operative wound, initial encounter Apply topically to affected area(s) once daily. 10 g 2 024 Active durable medical equipment (DME)Indications:Dehis cence of operative wound, initial encounter,Diabetic ulcer of left midfoot associated with type 2 diabetes mellitus, with fat layer exposed (HC),Follow-up examination after orthopedic surgery AIR SELECT, SHORT, MEDIUM, REF: 01ES-M 1 Each 025 Active gabapentin (NEURONTIN) 300 mg capsuleIndications:Grace ropathy Take 300 mg by mouth once daily if needed. 90 Capsule 3 025 Active sertraline (ZOLOFT) 100 mg tabletIndications:Anxi ety Take 1 Tablet (100 mg) by mouth once daily in the morning. 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 90 Tablet 3 025 Active gabapentin (NEURONTIN) 300 mg capsule Take 300 mg by mouth once daily if needed. 2024 Disconti nued(Reo rder (E-cance l not sent)) sertraline (ZOLOFT) 50 mg tabletIndications:Anxi ety Take 1 Tablet (50 mg) by mouth every morning. Take with the 25 mg tab to total 75 mg daily 30 Tablet 1 023 2024 Disconti nued(*Me dication adjustme nt) sertraline (ZOLOFT) 25 mg tabletIndications:Anxi ety Take 1 Tablet (25 mg) by mouth every morning. Take with the 50 mg tab, for total daily dose of 75 mg. 30 Tablet 1 023 2024 Miryami jeff(*Me dication adjustme nt) Active Problems Problem Noted Date Diagnosed Date Diabetic foot infection 12/18/2023 Osteomyelitis of fifth toe of left foot 12/18/19 24 Pre-syncope 12/15/2023 Community acquired pneumonia of right lower lobe of lung 12/15/2023 Type 2 diabetes mellitus wit h chronic [...] disease 09/24/2022 Overview (09/24/2022): HD started at [facility] 09/16/22 HTN (hypertension) 09/15/2022 Acute on chronic kidney failure 09/15/2022 Hypertensive emergency 09/15/2022 DIABETES 01/27/2002 Resolved Problems Problem Noted Date Diagnosed Date Resolved Date 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 10/31/2023 04/09/2024 Encounters Date Type Department Care Team Description 04/29/2024 3:30 PM MACHINE CLERICAL VERIFIER Office Visit [facility] [address] [place] [address] Mina Carnes DPM Follow Up (1 week, L TMA) 04/29/2024 Travel 04/22/2024 1:15 PM MACHINE CLERICAL VERIFIER Office Visit [facility] [address] [place] [address] iMna Carnes DPM Follow Up (Left foot) 04/22/2024 Travel 04/15/2024 1:30 PM MACHINE CLERICAL VERIFIER Office Visit [facility] [address] [place] [address] Steenblock, Mina R, DPM Post-op (Left foot) 04/15/2024 Travel 04/09/2024 11:50 AM MACHINE CLERICAL VERIFIER Office Visit [facility] [address] [facility] [place] [address] Daysi Pires PA Blood Pressure (BP has been very high) 04/08/2024 1:15 PM MACHINE CLERICAL VERIFIER Office Visit [facility] [address] [place] [address] Mina Carnes R, DPM Post-op (Left foot) 04/08/2024 Travel 04/01/2024 3:30 PM MACHINE CLERICAL VERIFIER Office Visit [facility] [address] [place] [address] Mina Carnes, DPM Post-op (Left foot) 04/01/2024 Nurse Triage [facility] [address] Daysi Pires PA Blood Pressure 04/01/2024 Nurse/Clinic Staff Only [facility] [address] Daysi Pires PA Error-please disregard 04/01/2024 Travel 03/26/2024 3:30 PM MACHINE CLERICAL VERIFIER Office Visit [facility] [address] [address] Mina Carnes, DPM Post-op (Left foot-TMA, DOS 12/21/23) 03/26/2024 Travel 03/18/2024 1:30 PM MACHINE CLERICAL VERIFIER Office Visit [facility] [address] Mina Carnes R, DPM Post-op (Left foot, DOS 12/21/23) 03/18/2024 Travel 03/11/2024 3:00 PM MACHINE CLERICAL VERIFIER Office Visit [facility] [address] [place] [address] Mina Carnes R, DPM Post-op (Left foot, 1 week follow up, DOS 12/21/23) 03/11/2024 Travel 03/04/2024 2:15 PM MACHINE CLERICAL VERIFIER Office Visit [facility] [address] [facility] [place] [address] Mina Carnes DPM Post-op (Left foot-TMA, DOS 12/21/23) 03/04/2024 Travel 02/19/2024 10:30 AM MACHINE CLERICAL VERIFIER Office Visit [facility] [place] [address] [address] [address] Mina Carnes, DPJesis Post-op (Left foot-TMA, DOS 12/21/23) 02/19/2024 Travel 02/15/2024 1:40 PM MACHINE CLERICAL VERIFIER Office Visit [facility] [address] [facility] [place] [address] Dyasi Pires PA Follow Up (Extend FMLA - check foot, wonders if its infected) 02/15/2024 Travel 02/05/2024 2:45 PM MACHINE CLERICAL VERIFIER Office Visit [facility] [address] [facility] [place] [address] Mina Carnes, DPJessi Post-op (Left foot-TMA, DOS 12/21/23, 6 week post op) 02/05/2024 Travel from Last 3 Months Immunizations Name Administration Dates Next Due Hep B (Hepatitis B (Adult) Recombinant Adjuvanted) 03/15/2023,01/12/2023,12/13/2022,2022 Influenza RIV4 (Age 18+ Year s) PRESERV FREE 05/18/2023 Pneumococcal Conj 20-valent (Prevnar 20) 11/22/2023 Social History Tobacco Use Types Packs/Day Years Used Date Smoking Tobacco: Former Cigarettes 0.3 23.5 S tarted: 10/30/2000 Passive Smoke Exposure: Past Smokeless Tobacco: Never Tobacco Cessation:Counseling Given: Yes Alcohol Use Standard Drinks/Week Comments Not Currently 0 (1 standard drink = 0.6 oz pur e alcohol) Social Connections Answer Date Recorded Do you often feel lonely or isolated from those around you? 0 12/15/2023 Financial Resource Strain Answer Date R ecorded Difficulty of Paying Living Expenses 3 10/24/2023 Difficulty of Paying Living Expenses Not on file 10/24/2023 Food Insecurity Answer Date Recorded Do you worry your food will run out before you are able to buy more? 1 12/15/2023 Transportation Needs Answer Date Record ed Does lack of transportation keep you from medica l appointments? 1 12/15/2023 Does lack of transportation keep you from work, meetings or getting things that you need? 1 12/15/2023 Housing Stability Answer Date Recorded What is your housing situation today? 1 12/15/2023 Interpersonal Safety Answer Date Record ed Are you being hit, kicked, p ushed or yelled at (see row info)? No 12/15/2023 Interpersonal Safety Abuse 12 - 18 Not on file 12/15/2023 Interpersonal Safety Ambulatory Vulnerability No t on file 12/15/2023 Utilities Answer Date Recorded Do you have trouble paying f or utilities (for example, heat, electricity, water, phone)? 1 12/15/2023 Sex and Gender Information Value Date Recorded Sex Assigned at Not on file Legal Sex Male 5:49 AM MACHINE CLERICAL VERIFIER Gender Identity Not on file Sexual Orientation Not on file Obstetrics History Last Filed Vital Signs Vital Sign Reading Time Taken Comments Blood Pressure 178/82 04/29/2024 3:34 PM MACHINE CLERICAL VERIFIER Pulse 81 04/29/2024 3:34 PM MACHINE CLERICAL VERIFIER Temperature 36.5 C (97.7 F) 04/29/2024 3:34 PM MACHINE CLERICAL VERIFIER Respiratory Rate 18 12/28/2023 3:59 PM CDT Oxygen Saturation 99% 04/29/2024 3:34 PM MACHINE CLERICAL VERIFIER Inhaled Oxygen Concentration - - Weight 101.6 kg (224 lb) 04/09/2024 11:59 AM MACHINE CLERICAL VERIFIER Height 175.3 cm (5' 9) 12/15/2023 2:00 AM CDT Body Mass Index 33.08 12/15/2023 2:00 AM CDT Plan of Treatment Upcoming Encounters Date Type Department Care Team (Late st Contact Info) Description 05/06/2024 1:15 PM CDT Office Visit [facility] [address] [place] [address] Mina Carnes DPM [address] [place] [address] 05/20/2024 3:30 PM CDT Office Visit [facility] [address] [place] [address] Mina Carnes DPM [address] [place] [address] 05/21/2024 11:30 AM CDT Office Visit [facility] [address] [place] [address] Daysi Pires PA [address] [place] [address] 05/27/2024 3:30 PM CDT Office Visit [facility] [address] [place] [address] Mina Carnes DPM [address] [place] [address] 06/03/2024 3:30 PM CDT Office Visit [facility] [address] [place] [address] Mina Carnes DPM [address] [place] [address] Health Maintenance Due Date Last Done Comments [...] 12/06/2021, 07/06/2021, 04/07/2020 Pneumococcal series for age 6-49 Completed 11/22/19 24 Procedures Procedure Name Priority Date/Time Associated Diagnosis Comments TSH WITH REFLEX Routine 02/15/2024 2:40 PM MACHINE CLERICAL VERIFIER Night sweats AEROBIC BACTERIAL CULTURE, STAIN Routine 02/15/2024 2:13 PM MACHINE CLERICAL VERIFIER Osteomyelitis of fifth toe of left foot (HC) Foot infection LIPID PANEL Routine 12/06/2021 3:00 PM CDT from Last 3 Months or Most Recently Relevant to Health Maintenance Results * TSH WITH REFLEX (02/15/2024 2:40 PM MACHINE CLERICAL VERIFIER) TSH W/REFLEX TO FT4 3.10 0.40 - 4.50 mIU/L [facility] Blood BLOOD SPECIMEN / Unknown 02/15/2024 2:40 PM MACHINE CLERICAL VERIFIER 02/15/2024 2:41 PM MACHINE CLERICAL VERIFIER Daysi CROCKER CHEMISTRY Final R esult [facility] [address] [place] [address], [facility] [address] [place] [address] * (ABNORMAL) AEROBIC BACTERIAL CULTURE, STAIN (02/15/2024 2:13 PM MACHINE CLERICAL VERIFIER) CULTURE RESULT(A) 02/20/2024 8:00 AM MACHINE CLERICAL VERIFIER [facility] CULTURE 3+ Staphylococcus aureus 02/20/2024 8:00 AM MACHINE CLERICAL VERIFIER [facility] CULTURE 1+ Stenotrophomonas species 02/20/2024 8:00 AM MACHINE CLERICAL VERIFIER [facility] CULTURE 4+ Mixed shreya present 02/20/2024 8:00 AM MACHINE CLERICAL VERIFIER [facility]-CE [facility] LABORATORY GRAM STAIN No Epithelial cells 02/19 8:00 AM MACHINE CLERICAL VERIFIER [facility] GRAM STAIN No RBCs 02/20/2024 8:00 AM MACHINE CLERICAL VERIFIER [facility] GRAM STAIN No PMNs 02/20/2024 8:00 AM MACHINE CLERICAL VERIFIER [facility] GRAM STAIN 4+ Gram Positive Cocci 02/20/2024 8:00 AM [facility] GRAM STAIN 3+ Gram Positive Bacilli 02/20/2024 8:00 AM [facility] Other (Other) Non-Blood / Unknown 02/15/2024 2:13 PM MACHINE CLERICAL VERIFIER 02/15/2024 2:41 [address]INE CLERICAL VERIFIER [facility] - 02/20/2024 8:00 AM MACHINE CLERICAL VERIFIER Mixed shreya, no beta-Streptococcus, Streptococcus pneumoniae or Pseudomonas aeruginosa. Organism Antibiotic Method Susceptibility Staphylococcus aureus OXACILLIN 0.5: S Comment:Oxacillin molina sceptible should not be interpreted as penicillin or amoxicillin susceptible. Staphylococcus aureus CLINDAMYCIN <=0.12: S Staphylococcus aureus DOXYCYCLINE <=0.5: S Staphylococcus aureus CEFAZOLIN S Staphylococcus aureus TRIMETHOPRIM/SULF <=0.5/9.5: S Stenotrophomonas species TRIMETHOPRIM/SULF S Stenotrophomonas species LEVOFLOXACIN S Stenotrophomonas species MINOCYCLINE S us Daysi CROCKER MICROBIOLOGY Final R esult [facility] [address] [place] [address], * (ABNORMAL) LIPID PANEL (12/06/2021 3:00 PM CDT) [facility] Signature CHOLESTEROL,TOTAL 163 100 - 199 mg/dL 12/07/2021 3:15 PM CDT [facility] TRIGLYCERIDES 272(H) <150 mg/dL 12/07/2021 3:15 PM CDT [facility] HDL CHOLESTEROL 23(L) >40 mg/dL 3:15 PM T [facility] NON-HDL CHOLESTEROL 140 <145 mg/dl 12/07/2021 3:15 PM CDT [facility] CHOL/HDL RATIO 7.09(H) <4.50 12/07/2021 3:15 PM CDT [facility] LDL CHOLESTEROL 86 <=130 mg/dL 12/07/2021 3:15 PM CDT [facility] VLDL CHOLESTEROL 54(H) <=30 mg/dL 12/07/2021 3:15 PM CDT [facility] PROVIDER ORDERED STATUS RANDOM 12/07/2021 3:15 PM CDT [facility] Blood BLOOD SPECIMEN / Unknown 12/06/2021 3:00 PM CDT 12/07/2021 2:54 PM CDT us Aidee Sher STATION CHIEF CHEMISTRY Final Resul t [facility] [address] [place] [address] from Last 3 Months or Most Recently Relevant to Health Maintenance Insurance MEDICAID [facility] * Guarantor: [employer] Account Type Relation to Patient Date of Phone Billing Address [facility] Health/Elisabeth [address] [place] [phone] Advance Directives Documents on File Type Date Recorded Patient Rose Grader Expl anation Healthcare Directive 09/26/2022 023 * Full Code (Latest Code Status on File) Date Activated Date Inactivated Comments 12/15/2023 2:19 AM 12/28/2023 6:35 PM Question Answer Comments Code Status Discussion: Reviewed Preferences * Full Code Date Activated Date Inactivated Comments 10/23/2023 8:52 PM 10/26/2023 1:29 AM Question Answer Comments Code Status Discussion: Reviewed Preferences * Full Code Date Activated Date Inactivated Comments 09/15/2022 5:47 PM 09/27/2022 6:10 PM Question Answer Comments Code Status Discussion: Reviewed Preferences Care Teams Flaring Machine Operator Relationship Specialty Start Date End Date Daysi Pires PA [address] [place] [address] PCP - General Physician Batch Roller Operator 06/04/23
--- OUTSIDE RECORDS SUMMARY | 2024-05-02 07:19 | XMS_ITS | Clinical Summary ---
Author Organization [facility] Address [address] [place] [address] Phone Care Team Providers Care Panel Raiser Operator Name Role Phone Unavailable Primary Care Provider Unavailabl e Source Comments [employer] is fully rolled out on [employer] Last update 07/31/08.[facility] Allergies Active Allergy Reactions Criticality Noted Date Comments Latex Rash 09/15/2022 Tramadol Other (see comments) 09/15/2022 Medications * Be aware that medications may not be up to date as of this document. Always verify current medications with patient. amLODIPine (NORVASC) 10 mg oral tablet Take 1 tablet (10 mg) by mouth daily. 01/16/20 23 Active carvedilol (COREG) 6.25 mg oral TABS [...] tablet (1,000 UNITS) by mouth daily. Active isoniazid (NYDRAZID) 300 mg oral TABSIndications: LTBI (latent tuberculosis infection),Pre-t ransplant evaluation for ESRD (end stage renal disease),End stage renal disease ([facility]) Take 1 tablet (300 mg) by mouth daily. 30 tablet 7 02/13/20 24 Active pyridoxine (VITAMIN B-6) 25 mg oral TABSIndications: LTBI (latent tuberculosis infection),Pre-t ransplant evaluation for ESRD (end stage renal disease),End stage renal disease ([facility]) Take 25 mg by mouth daily. 30 tablet 7 02/13/20 24 Active Active Problems Problem Noted Date Diagnosed Date Pre-transplant evaluation fo r ESRD (end stage renal disease) 03/25/2024 Diabetic foot infection ([facility]) 12/18/2023 Anemia due to chronic kidney disease, on chronic dialysis ([facility]) 10/13/2022 Anxiety 10/13/2022 Secondary hyperparathyroidism of renal origin ([facility]) 09/24/2022 End stage renal disease ([facility]) 09/24/2022 Overview (01/01/2024): HD started at [facility] 09/16/22 HTN (hypertension) 09/15/2022 Diabetes mellitus ([facility]) 01/27/2002 Resolved Problems Problem Noted Date Diagnosed Date Resolved Date Renovascular hypertension 12/04/2022 Encounters Date Type Department Care Team Description 04/16/2024 Telephone [facility] Infect Disease Clinic [address] [place] [address] Ning Leiva MD Care Coordination (Isoniazid in ID Clinic med room) 03/24/2024 3:00 PM MIDDLEWARE DEVELOPER [facility] [address] [place] [address] Denae Mckeon MD Pre-transplant evaluation for ESRD (end stage renal disease) (Primary Dx) Discharge Disposition: Discharged to home or self care 03/24/2024 Travel 03/24/2024 Telephone Transplant Program [address] [place] [address] Ning Leiva MD 02/12/2024 2:30 PM MIDDLEWARE DEVELOPER Telemedicine Transplant Program [address] [place] [address] Ning Leiva MD LTBI (latent tuberculosis infection) (Primary Dx); Pre-transplant evaluation for ESRD (end stage renal disease); End stage renal disease ([facility]) Discharge Disposition: Discharged to home or self care from Last 3 Months Immunizations Immunization Administration Dates Next Due Pneumococcal Conjugate, 20-Valent Vaccine (Prevn ar 20) 11/22/2023 Social History Tobacco Use Types Packs/Day Years Used Date Smoking Tobacco: Never Assessed Sex and Gender Information Value Date Recorded Sex Assigned at Not on file Legal Sex Male 8:16 AM MIDDLEWARE DEVELOPER Gender Identity Not on file Sexual Orientation Not on file Last Filed Vital Signs Vital Sign Reading Time Taken Comments Blood Pressure 142/73 03/24/2024 3:18 PM MIDDLEWARE DEVELOPER Pulse 87 03/24/2024 3:18 PM MIDDLEWARE DEVELOPER Temperature - - Respiratory Rate 18 03/24/2024 3:18 PM MIDDLEWARE DEVELOPER Oxygen Saturation - - Inhaled Oxygen Concentration - - Weight 99.8 kg (220 lb) 03/24/2024 3:18 PM MIDDLEWARE DEVELOPER Height 170.2 cm (5' 7) 11/20/2023 12:53 PM CDT Body Mass Index 34.46 11/20/2023 12:53 PM CDT Plan of Treatment Health Maintenance Due Date Last Done Comments Dental Oral Exam 1979 Dental Prophylaxis 1979 Dental X-Ray: Bitewings 1979 Diabetes Education 10/14/1980 Diabetes Eye Exam 10/14/1980 Diabetes Foot Exam 10/14/1980 Diabetes Microalbumin Screening 10/14/1980 Diabetic Education Protocol (CDE) 10/14/1980 Diabetic Lab Protocol 10/14/1980 Periodontal Maintenance 10/14/1993 PREVENTATIVE VISIT 10/14/1997 HEALTH MAINTENANCE PROTOCOL 10/14/1998 Imm: DTaP/Tdap (1 - Tdap) 10/14/1998 Imm: COVID-19 ( season) 2023 Diabetes HGB A1C Q 3 Months (Goal <7) 03/27/2024 12/26/2023, 12/26/2023, 06/04/2023, Additional history exists Lipid Screening 12/06/2026 12/06/2021, 06/26, 04/07/2020 Imm: Zoster (1 of 2) 10/14/2029 HIV Screening Completed 11/20/2023 Imm: Pneumonia Peds or At-Risk less than 50 years Completed 11/22/2023 Imm: Flu Completed 02/06/2024, 05/18/2023 Imm: HPV Aged Out No longer eligi [...] Procedure Name Priority Date/Time Associated Diagnosis Comments LAB HIV-1 ANTIGENS, WITH HIV-1 AND HIV-2 ANTIBODIES, SINGLE RESULT STAT 11/20/2023 1:20 PM CDT Chronic kidney disease from Last 3 Months or Most Recently Relevant to Health Maintenance Results * HIV COMBO (11/20/2023 1:20 PM CDT) HIV Antigen-Antibody Nonreactive Nonreactive [facility] Comment:Performance characte ristics have not been established with this test on patients less than 2 years of age. Blood 11/20/2023 1:20 PM CDT 11/20/2023 2:24 PM CDT Narrative [facility] - 11/20/2023 3:20 PM CDT Bill to Corporate Kid[employer] Account us [facility] Final Resul t [facility] [address] [place] [phone] from Last 3 Months or Most Recently Relevant to Health Maintenance Insurance [place] MEDICAID
--- OUTSIDE RECORDS SUMMARY | 2024-05-02 07:19 | XMS_ITS | Encounter Summary ---
Author Organization [facility] Address [address] [place] [address] Phone Care Team Providers Care Account Engineer Name Role Phone Unavailable Primary Care Provider Unavailabl e Encounter Details Date Type Department Care Team (Late st Contact Info) Description 03/24/2024 Telephone Transplant Program [address] [place], [place] [id number] Ning Leiva MD [address] [facility] [address] [place], [place] [phone] Social History Tobacco Use Types Packs/Day Years Used Date Smoking Tobacco: Never Assessed Sex and Gender Information Value Date Recorded Sex Assigned at Not on file Legal Sex Male 8:16 AM SWITCH ENGINEER Gender Identity Not on file Sexual Orientation Not on file documented as of this encounter Miscellaneous Notes * Telephone Encounter - Tj Luong RN - 03/24/2024 4:16 PM CST Patient presented to clinic and picked up medication. Start date verification form faxed to [facility] [employer] copy placed in basket to be scanned into chart. Tj Luong RN, 03/24/2024 4:17 PM CH ENGINEER * Telephone Encounter - Ning Leiva MD - 03/24/2024 1:36 PM SWITCH ENGINEER 1 month supply of INH has been sent to ID clinic from [facility] for his LTBI treatment. I contacted him today with this update. Confirmed that he had picked up a refill of his INH in January and completed the 1 month supply, as woods had dropped (but was still $140 copay). He has therefore completed 2 months of his INH to date. The medication ran out approximately 1 week ago. He will metal pickling equipment operator the medication today at the Infectious Diseases clinic when he is here for a separate clinic visit. This is month 05/04 (first month picked up from [facility] supply) Discussed that he will come to clinic monthly for an RN visit to metal pickling equipment operator medication refills. At each visit, will need to complete the following symptom review: TB symptoms (i.e., weight loss, night sweats, prolonged cough, bloody sputum): SIDE EFFECTS Poor appetite: Nausea/vomiting: RUQ abdominal tenderness: Tea/coffee colored urine: Unusual fatigue (INH/RIF): Rash/itching (INH/RIF): Yellow skin/eyes (INH/RIF): Numbness/tingling in arms/legs (INH): Fever for 3 days (INH/RIF): DOSES: Number of missed doses this month: Total number of doses taken this month: Doses dispensed: Ning Leiva MD, 03/24/2024 1:53 PM CH ENGINEER documented in this encounter Plan of Treatment Not on file documented as of this encounter Visit Diagnoses Not on filedocumented in this encounter
--- OUTSIDE RECORDS SUMMARY | 2024-05-02 07:19 | XMS_ITS | Encounter Summary ---
Author Organization [facility] Address [address] [place] [address] Phone Care Team Providers Care Hardware Press Operator Name Role Phone Unavailable Primary Care Provider Unavailabl e Encounter Details Date Type Department Care Team (Late st Contact Info) Description 04/25/2023 Abstract Transplant Program [address] [place], [place] [address] Williams Lindquist, Transplant Pelt Inspector [address] [place], [place] [phone] Social History Tobacco Use Types Packs/Day Years Used Date Smoking Tobacco: Never Assessed Sex and Gender Information Value Date Recorded Sex Assigned at Not on file Legal Sex Male 8:16 AM ESCROW ASSISTANT Gender Identity Not on file Sexual Orientation Not on file documented as of this encounter Plan of Treatment Not on file documented as of this encounter Visit Diagnoses Not on filedocumented in this encounter
--- OUTSIDE RECORDS SUMMARY | 2024-05-02 07:19 | XMS_ITS | Referral Summary ---
Author Organization [facility] Address [address] [place] [address] Phone Care Team Providers Care Maintenance Mechanic Millwright Name Role Phone Unavailable Primary Care Provider Unavailabl e Source Comments Superplayer is fully rolled out on [employer]. Last update 07/31/08.[facility] Encounters Date Type Department Care Team Description 04/16/2024 Telephone [facility] Infect Disease Clinic [address] [place] [address] Ning Leiva MD Care Coordination (Isoniazid in ID Clinic med room) 03/24/2024 Travel 03/24/2024 Telephone Transplant Program [address] [place] [address] Ning Leiva MD 03/24/2024 3:00 PM PEDIATRIC ANESTHESIOLOGIST [facility] [address] [place] [address] Denae Mckeon MD Pre-transplant evaluation for ESRD (end stage renal disease) (Primary Dx) Discharge Disposition: Discharged to home or self care 02/12/2024 2:30 PM PEDIATRIC ANESTHESIOLOGIST Telemedicine Transplant Program [address] [place] [address] Ning Leiva MD LTBI (latent tuberculosis infection) (Primary Dx); Pre-transplant evaluation for ESRD (end stage renal disease); End stage renal disease ([facility]) Discharge Disposition: Discharged to home or self care from Last 3 Months Allergies Active Allergy [...] (end stage renal disease),End stage renal disease (CMS/HHS) Take 1 tablet (300 mg) by mouth daily. 30 tablet 7 02/13/20 24 Active pyridoxine (VITAMIN B-6) 25 mg oral TABSIndications: LTBI (latent tuberculosis infection),Pre-t ransplant evaluation for ESRD (end stage renal disease),End stage renal disease (CMS/HHS) Take 25 mg by mouth daily. 30 tablet 7 02/13/20 24 Active Active Problems Problem Noted Date Diagnosed Date Pre-transplant evaluation fo r ESRD (end stage renal disease) 03/25/2024 Diabetic foot infection ([facility]) 12/18/2023 Anemia due to chronic kidney disease, on chronic dialysis ([facility]) 10/13/2022 Anxiety 10/13/2022 Secondary hyperparathyroidism of renal origin (H HS) 09/24/2022 End stage renal disease ([facility]) 09/24/2022 Overview (01/01/2024): HD started at [facility] 09/16/22 HTN (hypertension) 09/15/2022 Diabetes mellitus ([facility]) 01/27/2002 Resolved Problems Problem Noted Date Diagnosed Date Resolved Date Renovascular hypertension 12/04/2022 Immunizations Immunization Administration Dates Next Due Pneumococcal Conjugate, 20-Valent Vaccine (Prevn ar 20) 11/22/2023 Social History Tobacco Use Types Packs/Day Years Used Date Smoking Tobacco: Never Assessed Sex and Gender Information Value Date Recorded Sex Assigned at Not on file Legal Sex Male 8:16 AM PEDIATRIC ANESTHESIOLOGIST Gender Identity Not on file Sexual Orientation Not on file Last Filed Vital Signs Vital Sign Reading Time Taken Comments Blood Pressure 142/73 03/24/2024 3:18 PM PEDIATRIC ANESTHESIOLOGIST Pulse 87 03/24/2024 3:18 PM PEDIATRIC ANESTHESIOLOGIST Temperature - - Respiratory Rate 18 03/24/2024 3:18 PM PEDIATRIC ANESTHESIOLOGIST Oxygen Saturation - - Inhaled Oxygen Concentration - - Weight 99.8 kg (220 lb) 03/24/2024 3:18 PM PEDIATRIC ANESTHESIOLOGIST Height 170.2 cm (5' 7) 11/20/2023 12:53 PM CDT Body Mass Index 34.46 11/20/2023 12:53 PM CDT Plan of Treatment Not on file Procedures Procedure Name Priority Date/Time Associated Diagnosis Comments LAB HIV-1 ANTIGENS, WITH HIV-1 AND HIV-2 ANTIBODIES, SINGLE RESULT STAT 11/20/2023 1:20 PM CDT Chronic kidney disease from Last 3 Months or Most Recently Relevant to Health Maintenance Results * HIV COMBO (11/20/2023 1:20 PM CDT) HIV Antigen-Antibody Nonreactive Nonreactive [facility] Comment:Performance characte ristics have not been established with this test on patients less than 2 years of age. Blood 11/20/2023 1:20 PM CDT 11/20/2023 2:24 PM CDT Narrative [facility] - 11/20/2023 3:20 PM CDT Bill to Corporate Kidney Acquisition Account us Neva Carbajal [employer] [facility] Final Resul t [facility] [address] [place] [id number] from Last 3 Months or Most Recently Relevant to Health Maintenance Insurance [employer] Attn Williams Lindquist [address] [phone]
--- OUTSIDE RECORDS SUMMARY | 2024-05-02 07:19 | XMS_ITS | Encounter Summary ---
Author Organization [facility] Address [address] [place] [address] Phone Care Team Providers Care Sap Basis Name Role Phone Unavailable Primary Care Provider Unavailabl e Reason for Visit * Reason Onset Date Comments Care Coordination 04/16/2024 Isoniazid in I D Clinic med room Encounter Details Date Type Department Care Team (Late st Contact Info) Description 04/16/2024 Telephone [facility] Infect Disease Clinic [address] [place], [place] [phone] Ning Leiva MD [address] [phone] Care Coordination (Isoniazid in ID Clinic med room) Social History Tobacco Use Types Packs/Day Years Used Date Smoking Tobacco: Never Assessed Sex and Gender Information Value Date Recorded Sex Assigned at Not on file Legal Sex Male 8:16 AM RODDING MACHINE TENDER Gender Identity Not on file Sexual Orientation Not on file documented as of this encounter Miscellaneous Notes * Telephone Encounter - Geovanna Pugh RN - 04/25/2024 11:34 AM CST D: Patient came by clinic to vegetable picker medications. A: Isoniazid retrieved from the med room safe. R: Patient confirmed his last name and took medications. P: Return to clinic as scheduled. Geovanna Pugh RN, 04/25/2024 11:35 AM ING MACHINE TENDER * Telephone Encounter - Ghada Briseno RN - 04/16/2024 12:42 PM RODDING MACHINE TENDER TB symptoms (i.e., weight loss, night sweats, prolonged cough, bloody sputum): night sweats, but reports he has had this for a while. SIDE EFFECTS Poor appetite: no Nausea/vomiting: no RUQ abdominal tenderness: no Tea/coffee colored urine: no Unusual fatigue (INH/RIF): no Rash/itching (INH/RIF): no Yellow skin/eyes (INH/RIF): no Numbness/tingling in arms/legs (INH): no Fever for 3 days (INH/RIF): no DOSES: Number of missed doses this month: none Total number of doses taken this month: 19 Doses dispensed: 30 Patient reports he will pick this medication up next week when he is on the way to another appointment. Patient will pick it up before he runs out of his previous supply of medication. Etl Manager will place in the safe in the ID Clinic med room. Ghada Briseno RN, 04/16/2024 12:48 PM ING MACHINE TENDER documented in this encounter Plan of Treatment Not on file documented as of this encounter Visit Diagnoses Not on filedocumented in this encounter
--- OUTSIDE RECORDS SUMMARY | 2024-05-02 07:19 | XMS_ITS | Encounter Summary ---
Author Organization [facility] Address [address] [place] [address] Phone Care Team Providers Care Auto Transport Driver Name Role Phone Unavailable Primary Care Provider Unavailabl e Encounter Details Date Type Department Care Team (Latest Contact Info) Description 03/24/2024 Travel Social History Tobacco Use Types Packs/Day Years Used Date Smoking Tobacco: Never Assessed Sex and Gender Information Value Date Recorded Sex Assigned at Not on file Legal Sex Male 8:16 AM TRACTOR MECHANIC Gender Identity Not on file Sexual Orientation Not on file documented as of this encounter Plan of Treatment Not on file documented as of this encounter Visit Diagnoses Not on filedocumented in this encounter
--- OUTSIDE RECORDS SUMMARY | 2024-05-02 07:19 | XMS_ITS | Encounter Summary ---
Author Organization [facility] Address [address] [place] [address] Phone Care Team Providers Care Scout Name Role Phone Unavailable Primary Care Provider Unavailabl e Reason for Visit * Reason Comments Pre Kidney Transplant Evaluation Encounter Details Date Type Department Care Team (Late st Contact Info) Description 03/24/2024 3:00 PM MEDICAL RECORDS TECHNICIAN Office Visit [facility] Cardiology Clinic [address] [address] Denae Mckeon MD [address] [facility] [address] [place], [place] [phone] Pre-transplant evaluation for ESRD (end stage renal disease) (Primary Dx) Discharge Disposition: Discharged to home or self care Social History Tobacco Use Types Packs/Day Years Used Date Smoking Tobacco: Never Assessed Sex and Gender Information Value Date Recorded Sex Assigned at Not on file Legal Sex Male 8:16 AM MEDICAL RECORDS TECHNICIAN Gender Identity Not on file Sexual Orientation Not on file documented as of this encounter Last Filed Vital Signs Vital Sign Reading Time Taken Comments Blood Pressure 142/73 03/24/2024 3:18 PM MEDICAL RECORDS TECHNICIAN Pulse 87 03/24/2024 3:18 PM MEDICAL RECORDS TECHNICIAN Temperature - - Respiratory Rate 18 03/24/2024 3:18 PM MEDICAL RECORDS TECHNICIAN Oxygen Saturation - - Inhaled Oxygen Concentration - - Weight 99.8 kg (220 lb) 03/24/2024 3:18 PM MEDICAL RECORDS TECHNICIAN Height - - Body Mass Index 34.46 11/20/2023 12:53 PM CDT documented in this encounter Progress Notes * Denae Mckeon MD - 03/24/2024 3:00 PM CST Images from the original note were not included. CARDIOLOGY OFFICE VISIT CONSULT Maco Stein [id number] male Date of service 03/24/[address] Carbajal, Thank you for involving us in the care of Mr. Maco Stein. As you are well aware, he presented for cardiovascular evaluation as potential renal transplant recipient. List of Cardiovascular and related problems: End-stage renal disease presumed to be secondary to diabetic nephropathy on renal replacement therapy since August 2022 Initial in center hemodialysis followed by home hemodialysis since June 2023 Type 2 diabetes since age 16 Insulin requiring for 20 years, complicated by diabetic nephropathy and retinopathy s/p bilateral retinal detachment surgery Primary hypertension for 15 years Diabetic foot ulcer status post multiple toe amputation 13 years ago and subsequent transmetatarsalamputation, November 2023 Noncompressible but what appears to be normal waveforms on ankle-brachial Doppler ultrasound and index History of presyncope and dizziness with normal MRI of the head, August 2022 LTBI on therapy with INH for 9 months. Assessment and Medical Decision Making 1. Prekidney transplant cardiovascular evaluation: Mr. Maco Stein is a 43-year-old male, type II diabetic since age 16, with ESRD on home hemodialysis (since August 2022) without prior cardiovascular events. 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 Despite status post bilateral TMA, he maintains fairly good functional capacity and does not provide any concerning symptoms. During stress echocardiogram in October 2023, he demonstrated excellent functional capacity and achieved a peak workloadof 10.1 METS. However he achieved only 62% of age- predicted maximum heart rate. Echocardiogram showed normal biventricular systolic function without significant valvular heart disease or evidence forpulm hypertension. There was no evidence for inducible ischemia. Overall, patient appears a good candidate for potential kidney transplant from cardiovascular standpoint with the following recommendations. Even if he did not achieve target heart rate of 85% of age-predicted maximum, he demonstrated excellent functional capacity conferring low risk state. In addition, he does not have potential donors in the foreseeable future and hence he could be scheduled for surveillance myocardial perfusion studyin October 2024 as part of his yearly surveillance test. Given blood group O and expected long wait time, we discussed about remaining active to maintain his muscle mass and functional capacity. Patient's beta-sung should be continued during the perioperative time. Patient quit smoking over 20 years ago. Lipid panel from November 2021 showed triglycerides 272 downfrom 905, LDL 86 and total cholesterol 163. Recommend lipid panel to assess hypertriglyceridemia and LDL. History of Present Illness Mr. Maco Stein is a 43-year-old male who presented for a pre-renal transplant cardiovascular evaluation. He has a significant medical history of type 2 diabetes mellitus since the age of 16, requiring insulin therapy for approximately 20 years, complicated by diabetic nephropathy and retinopathy, statuspost bilateral retinal detachment surgery. He has end-stage renal disease (ESRD), presumed secondary to diabetic nephropathy, and has been on renal replacement therapy since August 2022. He has a 15-year history of primary hypertension. The patient was initiated on in-center hemodialysis in August 2022, which transitioned to home hemodialysis in June 2023. He undergoes dialysis four times a week for 3hours each session, average UF of 2 Kg without any significant complications. He reports feeling well and energetic. Previously employed in a warehouse, he is currently staying at home and engaging in home-related chores, including construction activities and automotive repairs for family members. Despite having undergone bilateral transmetatarsal amputation in late 2023, heis able to ambulate without limitations/balance issues. The patient has a history of smoking cessation 24 years ago and denies any current use of tobacco or recreational drugs. There is no family history of dialysis dependency, although his siblings have diabetes mellitus. He has three children, aged 12, 18, and 23. There is no family history of premature coronary artery disease, cardiomyopathy, or sudden cardiac . SOCIAL HISTORY - Quit smoking about 24 years ago - Does not smoke - Does not use any recreational drugs - Has 3 children ages 12, 18, and 23 FAMILY HISTORY - No family member on dialysis - Brothers and sisters are diabetic - No family history of premature coronary artery disease, cardiomyopathy, or sudden cardiac Additional Data: Results Imaging Transthoracic echocardiogram in September 2023 at [facility] showed normal LV size, normal wall thickness and ejection fraction of 55-60%. Normal RV size and function. No hemodynamically significant valvular heart disease. Exercise echocardiogram in October 2023 at [facility]: No evidence of inducible ischemia at the achieved workload of 10.1 METs and 62% of age- predicted maximum heart rate. Patient exercised for 9 minutes on the standard Mal protocol. The baseline echocardiogram showed normal LV size and function without hemodynamically significant valvular heart disease. Normal RV size and function. No pericardial effusion. Testing 12-lead EKG was essentially normal without evidence for LVH or pathology Q waves. Current Medications Current Outpatient Medications Medication Sig Dispense Refill isoniazid (NYDRAZID) 300 mg oral TABS Take 1 tablet (300 mg) by mouth daily. 30 tablet 7 pyridoxine (VITAMIN B-6) 25 mg oral TABS Take 25 mg by mouth daily. 30 tablet 7 amLODIPine (NORVASC) 10 mg oral tablet Take 1 tablet (10 mg) by mouth daily. carvedilol (COREG) 6.25 mg oral TABS Take [...] mouth daily.Takes as a 50 and 25 mgfor total dose of 75 mg sevelamer carbonate [...] 1 tablet (1,000 UNITS) by mouth daily. No current facility-administered medications for this visit. Only cardiac Medications reviewed. Allergies Allergies Allergen Reactions Latex Rash Tramadol Other (see comments) Physical Examination Filed Vitals: 03/24/24 1518 BP: (!) 142/73 Pulse: 87 Resp: 18 Weight: 99.8 kg (220 lb) Body mass index is 34.46 kg/m??. Physical Exam The patient appears comfortable and not in any form of distress. He was engaged and pleasant. Lenora conjunctiva, no icterus. No carotid bruit. JVP was flat. Chest examination showed good air entry bilaterally without crackles or wheezes. Heart sounds were regular in rhythm with normal S1 and S2. No S3 or S4 gallop. No pericardial rub. Lower extremities are warm with minimal edema on the right leg. He does have Unna boot on the left and detailed examination was not done. Patient able to ambulate easily in the office with no apparent focal neurologic deficit. This clinic visit dictation was transcribed with the assistance of Artifical Intelligence (AI) capable software. Interview with patient/guardian was not recorded. Denae Mckeon MD, [facility] Staff Physician, Cardiology 03/24/2024 19:31 CAL RECORDS TECHNICIAN documented in this encounter Plan of Treatment Not on file documented as of this encounter Visit Diagnoses Diagnosis Pre-transplant evaluation for ESRD (end stage renal disease)- Primary Other specified pre-operative examination documented in this encounter
[2024-05-02] MEDS: 0.9 % SODIUM CHLORIDE 1000 ml 1,000 ML 6000 ML IV ×4 (07:20→08:32)
[2024-05-02] MEDS: ATROPINE 1 mg/10 ml IVP (07:29)
[2024-05-02] MEDS: SODIUM CHLORIDE 0.9% IVPB ×2 (07:32→08:28)
[2024-05-02] MEDS: EPINEPHRINE IVPB ×2 (07:32→08:28)
[2024-05-02 07:45] LABS: Appearance Urine Clear (Clear); Bilirubin Urine Negative (Negative); Blood Urine Trace-intact (Negative); Color Urine Yellow (Yellow); Glucose Urine 1+ (Negative); Ketones Urine Negative (Negative); Leukocyte Esterase Urine Negative (Negative); Nitrite Urine Negative (Negative); Protein Urine 3+ (Negative); Urobilinogen Urine 0.2 (0.2-1.0); pH Urine 8.5 (5.0-8.5)
[2024-05-02 07:55] LABS: Amphetamine Screen Urine Negative (Negative); Barbiturate Screen Urine Negative (Negative); Benzodiazepines Screen Urine Negative (Negative); Cannabinoid Screen Urine Negative (Negative); Cocaine Screen Urine Negative (Negative); Methadone Screen Urine Negative (Negative); Methamphetamines Screen Urine Negative (Negative); Opiate Screen Urine Negative (Negative); Oxycodone Screen Urine POSITIVE (Negative); Phencyclidine Screen Urine Negative (Negative); Tricyclic Antidepressant Urine Negative (Negative)
--- OUTSIDE RECORDS SUMMARY | 2024-05-02 08:03 | XMS_ITS | Clinical Summary ---
Author Organization [facility] Address [address] [place] [address] Phone Care Team Providers Care Emt Name Role Phone Unavailable Primary Care Provider Unavailabl e Source Comments Trefis is fully rolled out on [employer]. Last update 07/31/08.[facility] Allergies Active Allergy Reactions Criticality Noted Date [...] (end stage renal disease),End stage renal disease ([facility]) Take 1 tablet (300 mg) by mouth daily. 30 tablet 7 02/13/20 24 Active pyridoxine (VITAMIN B-6) 25 mg oral TABSIndications: LTBI (latent tuberculosis infection),Pre-t ransplant evaluation for ESRD (end stage renal disease),End stage renal disease ([facility]) Take 25 mg by mouth daily. 30 tablet 7 02/13/20 24 Active Active Problems Problem Noted Date Diagnosed Date Pre-transplant evaluation fo r ESRD (end stage renal disease) 03/25/2024 Diabetic foot infection ([facility]) 12/18/2023 Anemia due to chronic kidney disease, on chronic dialysis ([facility]) 10/13/2022 Anxiety 10/13/2022 Secondary hyperparathyroidism of renal origin (H HS) 09/24/2022 End stage renal disease ([facility]) 09/24/2022 Overview (01/01/2024): HD started at [facility] 09/16/22 HTN (hypertension) 09/15/2022 Diabetes mellitus ([facility]) 01/27/2002 Resolved Problems Problem Noted Date Diagnosed Date Resolved Date Renovascular hypertension 12/04/2022 Encounters Date Type Department Care Team Description 04/16/2024 Telephone [facility] Infect Disease Clinic [address] [place] [address] Ning Leiva MD Care Coordination (Isoniazid in ID Clinic med room) 03/24/2024 3:00 PM BELT PRESS OPERATOR Office Visit [facility] Card[facility] Clinic [address] [place] [address] Denae Mckeon MD Pre-transplant evaluation for ESRD (end stage renal disease) (Primary Dx) Discharge Disposition: Discharged to home or self care 03/24/2024 Travel 03/24/2024 Telephone Transplant Program [address] [place] [address] Ning Leiva MD 02/12/2024 2:30 PM BELT PRESS OPERATOR Telemedicine Transplant Program [address] [place] [address] Ning Leiva MD LTBI (latent tuberculosis infection) (Primary Dx); Pre-transplant evaluation for ESRD (end stage renal disease); End stage renal disease ([facility]) Discharge Disposition: Discharged to home or self care from Last 3 Months Immunizations Immunization Administration Dates Next Due Pneumococcal Conjugate, 20-Valent Vaccine (Prevn ar 20) 11/22/2023 Social History Tobacco Use Types Packs/Day Years Used Date Smoking Tobacco: Never Assessed Sex and Gender Information Value Date Recorded Sex Assigned at Not on file Legal Sex Male 8:16 AM BELT PRESS OPERATOR Gender Identity Not on file Sexual Orientation Not on file Last Filed Vital Signs Vital Sign Reading Time Taken Comments Blood Pressure 142/73 03/24/2024 3:18 PM BELT PRESS OPERATOR Pulse 87 03/24/2024 3:18 PM BELT PRESS OPERATOR Temperature - - Respiratory Rate 18 03/24/2024 3:18 PM BELT PRESS OPERATOR Oxygen Saturation - - Inhaled Oxygen Concentration - - Weight 99.8 kg (220 lb) 03/24/2024 3:18 PM BELT PRESS OPERATOR Height 170.2 cm (5' 7) 11/20/2023 12:53 [...] 1:20 PM CDT) HIV Antigen-Antibody Nonreactive Nonreactive [facility] Comment:Performance characte ristics have not been established with this test on patients less than 2 years of age. Blood 11/20/2023 1:20 PM CDT 11/20/2023 2:24 PM CDT Narrative [facility] - 11/20/2023 3:20 PM CDT Bill to Corporate Kidney Acquisition Account us Neva [facility]OR[facility] Final Resul t [facility] [address] [place] [phone] from Last 3 Months or Most Recently Relevant to Health Maintenance Insurance [place] MEDICAID
--- OUTSIDE RECORDS SUMMARY | 2024-05-02 08:03 | XMS_ITS | Encounter Summary ---
Author Organization [facility] Address [address] [place] [address] Phone Care Team Providers Care Single Spindle Screw Machine Operator Name Role Phone Unavailable Primary Care Provider Unavailabl e Encounter Details Date Type Department Care Team (Late st Contact Info) Description 04/25/2023 Abstract Transplant Program [address] [place], [place] [phone] Williams Lindquist, Transplant Senior Research Consultant [address] [place], [place] [phone] Social History Tobacco Use Types Packs/Day Years Used Date Smoking Tobacco: Never Assessed Sex and Gender Information Value Date Recorded Sex Assigned at Not on file Legal Sex Male 8:16 AM STITCHER STANDARD MACHINE Gender Identity Not on file Sexual Orientation Not on file documented as of this encounter Plan of Treatment Not on file documented as of this encounter Visit Diagnoses Not on filedocumented in this encounter
--- OUTSIDE RECORDS SUMMARY | 2024-05-02 08:03 | XMS_ITS | Clinical Summary ---
Author Organization [employer] [facility] Address [address] [place] [id number] Care Team Providers Care Grinder Gear Name Role Phone Daysi Pires Primary Care [...] needed for Shortness Of Breath. Active sensor (HomeUnion ServicesStyle Gale 3 Sensor) for continuous blood glucose [...] 1 025 Active pantoprazole (PROTONIX) 20 mg tabletIndications:Cable Cutter And Swager pedro GERD Take 1 Tablet (20 mg) [...] 75 mg. 30 Tablet 1 023 2024 Abdelrahman aguilar(*Me dication adjustme nt) Active Problems Problem Noted [...] Encounters Date Type Department Care Team Description 05/02/2024 9:00 AM VOCATIONAL TECHNICAL EDUCATION DIRECTOR Hospital Encounter [facility] [address] [place] [address] Guerline Hernandez MD 04/29/2024 3:30 PM VOCATIONAL TECHNICAL EDUCATION DIRECTOR Office Visit [facility] [address] [place] [address] Mina Carnes DPM Follow Up (1 week, L TMA) 04/29/2024 Travel 04/22/2024 1:15 PM VOCATIONAL TECHNICAL EDUCATION DIRECTOR Office Visit [facility] [address] [place] [address] Mina Carnes DPM Follow Up (Left foot) 04/22/2024 Travel 04/15/2024 1:30 PM VOCATIONAL TECHNICAL EDUCATION DIRECTOR Office Visit [facility] [address] [place] [address] Robinson Carnesnt R, DPM Post-op (Left foot) 04/15/2024 Travel 04/09/2024 11:50 AM VOCATIONAL TECHNICAL EDUCATION DIRECTOR Office Visit [facility] [address] [facility] [place] [address] Daysi Pires PA Blood Pressure (BP has been very high) 04/08/2024 1:15 PM VOCATIONAL TECHNICAL EDUCATION DIRECTOR Office Visit [facility] [address] [place] [address] SteRobinson pereznt R, DPM Post-op (Left foot) 04/08/2024 Travel 04/01/2024 3:30 PM VOCATIONAL TECHNICAL EDUCATION DIRECTOR Office [facility] [address] [facility] [address] Robinson Carnesnt R, DPM Post-op (Left foot) 04/01/2024 Nurse Triage [facility] [address] [facility] [place] [address] Daysi Pires PA Blood Pressure 04/01/2024 Nurse/Clinic Staff Only [facility] [address] [address] Daysi Pires PA Error-please disregard 04/01/2024 Travel 03/26/2024 3:30 PM VOCATIONAL TECHNICAL EDUCATION DIRECTOR Office Visit [facility] [address] [place] [address] Trice Mina R, DPM Post-op (Left foot-TMA, DOS 12/21/23) 03/26/2024 Travel 03/18/2024 1:30 PM VOCATIONAL TECHNICAL EDUCATION DIRECTOR Office Visit [facility] [address] [place] [address] Stechris Mina R, DPM Post-op (Left foot, DOS 12/21/23) 03/18/2024 Travel 03/11/2024 3:00 PM VOCATIONAL TECHNICAL EDUCATION DIRECTOR Office Visit [facility] [address] [facility] [address] Mina Carnes DPJessi Post-op (Left foot, 1 week follow up, DOS 12/21/23) 03/11/2024 Travel 03/04/2024 2:15 PM VOCATIONAL TECHNICAL EDUCATION DIRECTOR Office Visit [facility] [address] [facility] [place] [address] Mina Carnes, DPM Post-op (Left foot-TMA, DOS 12/21/23) 03/04/2024 Travel 02/19/2024 10:30 AM VOCATIONAL TECHNICAL EDUCATION DIRECTOR Office Visit [facility] [place] [address] [facility] [place] [id number] Mina Carnes, DPM Post-op (Left foot-TMA, DOS 12/21/23) 02/19/2024 Travel 02/15/2024 1:40 PM VOCATIONAL TECHNICAL EDUCATION DIRECTOR Office Visit [address] [address] Daysi Pires PA Follow Up (Extend FMLA - check foot, wonders if its infected) 02/15/2024 Travel 02/05/2024 2:45 PM VOCATIONAL TECHNICAL EDUCATION DIRECTOR Office Visit [address] [address] Mina Carnes, DPM Post-op (Left foot-TMA, DOS 12/21/23, 6 week [...] on file Legal Sex Male 5:49 AM VOCATIONAL TECHNICAL EDUCATION DIRECTOR Gender Identity Not on file Sexual Orientation Not on file Obstetrics History Last Filed Vital Signs Vital Sign Reading Time Taken Comments Blood Pressure 178/82 04/29/2024 3:34 PM VOCATIONAL TECHNICAL EDUCATION DIRECTOR Pulse 81 04/29/2024 3:34 PM VOCATIONAL TECHNICAL EDUCATION DIRECTOR Temperature 36.5 C (97.7 F) 04/29/2024 3:34 PM VOCATIONAL TECHNICAL EDUCATION DIRECTOR Respiratory Rate 18 12/28/2023 3:59 PM CDT Oxygen Saturation 99% 04/29/2024 3:34 PM VOCATIONAL TECHNICAL EDUCATION DIRECTOR Inhaled Oxygen Concentration - - Weight 101.6 kg (224 lb) 04/09/2024 11:59 AM VOCATIONAL TECHNICAL EDUCATION DIRECTOR Height 175.3 cm (5' 9) 12/15/2023 2:00 AM CDT Body Mass Index 33.08 12/15/2023 2:00 AM CDT Plan of Treatment Upcoming Encounters Date Type Department Care Team (Late st Contact Info) Description 05/06/2024 1:15 PM CDT Office Visit [facility] [address] [facility] [place] [address] Mina Carnes DPM [address] [facility] [place] [address] 05/20/2024 3:30 PM CDT Office Visit [facility] [address] [facility] [place] [address] Mina Carnes DPM [address] [place] [address] 05/21/2024 11:30 AM CDT Office Visit [facility] [address] [place] [address] Daysi Pires PA [address] [place] [address] 05/27/2024 3:30 PM CDT Office Visit [facility] [address] [facility] [place] [address] Mina Carnes DPM [address] [place] [address] 06/03/2024 3:30 PM CDT Office Visit [facility] [address] [place] [address] Mina Carnes DPM [address] [place] [address] Health Maintenance Due Date Last Done Comments [...] TSH WITH REFLEX Routine 02/15/2024 2:40 PM VOCATIONAL TECHNICAL EDUCATION DIRECTOR Night sweats AEROBIC BACTERIAL CULTURE, STAIN Routine 02/15/2024 2:13 PM VOCATIONAL TECHNICAL EDUCATION DIRECTOR Osteomyelitis of fifth toe of left foot (HC) Foot infection LIPID PANEL Routine 12/06/2021 3:00 PM CDT from Last 3 Months or Most Recently Relevant to Health Maintenance Results * TSH WITH REFLEX (02/15/2024 2:40 PM VOCATIONAL TECHNICAL EDUCATION DIRECTOR) TSH W/REFLEX TO FT4 3.10 0.40 - 4.50 mIU/L [facility] Blood BLOOD SPECIMEN / Unknown 02/15/2024 2:40 PM VOCATIONAL TECHNICAL EDUCATION DIRECTOR 02/15/2024 2:41 PM VOCATIONAL TECHNICAL EDUCATION DIRECTOR Daysi CROCKER CHEMISTRY Final R esult [facility] [address] [place] [address], [facility] [address] [place] [address] * (ABNORMAL) AEROBIC BACTERIAL CULTURE, STAIN (02/15/2024 2:13 PM VOCATIONAL TECHNICAL EDUCATION DIRECTOR) CULTURE RESULT(A) 02/20/2024 8:00 AM VOCATIONAL TECHNICAL EDUCATION DIRECTOR [facility]AL LABORATORY CULTURE 3+ Staphylococcus aureus 02/20/2024 8:00 AM VOCATIONAL TECHNICAL EDUCATION DIRECTOR [facility]AL LABORAT[facility] CULTURE 1+ Stenotrophomonas species 02/20/2024 8:00 AM [facility] CULTURE 4+ Mixed shreya present 02/20/2024 8:00 AM VOCATIONAL TECHNICAL EDUCATION DIRECTOR [facility] GRAM STAIN No Epithelial cells 02/19 8:00 AM [facility] GRAM STAIN No RBCs 02/20/2024 8:00 AM VOCATIONAL TECHNICAL EDUCATION DIRECTOR [facility] GRAM STAIN No PMNs 02/20/2024 8:00 AM VOCATIONAL TECHNICAL EDUCATION DIRECTOR [facility] GRAM STAIN 4+ Gram Positive Cocci 02/20/2024 8:00 AM [facility] GRAM STAIN 3+ Gram Positive Bacilli 02/20/2024 8:00 AM [facility] Other (Other) Non-Blood / Unknown 02/15/2024 2:13 PM VOCATIONAL TECHNICAL EDUCATION DIRECTOR 02/15/2024 2:41 PM [facility] LABORATORY - 02/20/2024 8:00 AM VOCATIONAL TECHNICAL EDUCATION DIRECTOR Mixed shreya, no beta-Streptococcus, Streptococcus pneumoniae or [...] us Daysi CROCKER MICROBIOLOGY Final R esult [facility] [address] [place] [address], * (ABNORMAL) LIPID PANEL (12/06/2021 3:00 PM CDT) CHOLESTEROL,TOTAL 163 100 - 199 mg/dL 12/07/2021 3:15 PM CDT [facility] TRIGLYCERIDES 272(H) <150 mg/dL 12/07/2021 3:15 PM CDT [facility] HDL CHOLESTEROL 23(L) >40 mg/dL 3:15 PM CDT [facility] NON-HDL CHOLESTEROL 140 <145 mg/dl 12/07/2021 3:15 PM CDT [facility] CHOL/HDL RATIO 7.09(H) <4.50 12/07/2021 3:15 PM CDT [facility] LDL CHOLESTEROL 86 <=130 mg/dL 12/07/2021 3:15 PM CDT [facility] VLDL CHOLESTEROL 54(H) <=30 mg/dL 12/07/2021 3:15 PM CDT [facility] PROVIDER ORDERED STATUS RANDOM 12/07/2021 3:15 PM CDT [facility] Blood BLOOD SPECIMEN / Unknown 12/06/2021 3:00 PM CDT 12/07/2021 2:54 PM CDT Aidee Sher NP CHEMISTRY Final Resul t [facility] [address] [place] [address] from Last 3 Months or Most Recently Relevant to Health Maintenance Insurance MEDICAID [facility] [place] [address] * Guarantor: [employer] Account Type Relation to Patient Date of Phone Billing Address Occ Health/Elisabeth 2001 ATTN SARAH DEAN [address] [place] [id number] Advance Directives Documents on File Type Date Recorded Patient Registered Sales Assistant Expl anation Healthcare Directive 09/26/2022 023 * [...] Code Status Discussion: Reviewed Preferences Care Teams Grinder Gear Relationship Specialty Start Date End Date Daysi Pires PA [address] [place] [address] PCP - General Physician Glove Cutter 06/04/23
--- OUTSIDE RECORDS SUMMARY | 2024-05-02 08:03 | XMS_ITS ---
Author Organization [facility] Address [address] [place] [address] Phone Care Team Providers Care Silk Blocker Name Role Phone Unavailable Primary Care Provider Unavailabl e Transplant Episode Kidney Candidate [facility] ([place], [place]) - [facility] Evaluation began on 11/20/2023 Marked as Active on 11/20/2023 Kidney CoordinatorChinyere Valencia RN Phone: N/A Fax: N/A Email: N/A Infection History Noted Survival Infection Treatment Organism Resolved 12/18/2023 Diabetic foot infection ([facility] Care Team Name Role Phone Fax Email Chinyere Valencia RN Kidney Coordinator N/A N/A N/A Jean Ochoa DO [facility] Info Surgeon [phone] N/A Julito Cortez MD Splicer Helper Referring Splicer Helper Referring Provider [phone] N/A Kidney Spec [facility]erring [facility] [phone] N/A Chinyere Valencia RN [facility] Pre Coordinator N/A N/A N/A Events Pre-Transplant Referred: 05/11/2023 Evaluation began: 11/20/2023 Committee: 07/20/2023 Dialysis History Dialysis History Start End Type Comments Center Home Hemodialysis [facility] Information Center Phone Fax Address [facility] [phone] [address] [facility] [id number]
--- OUTSIDE RECORDS SUMMARY | 2024-05-02 08:03 | XMS_ITS | Encounter Summary ---
Author Organization [facility] Address [address] [place] [address] Phone Care Team Providers Care Flying Teacher Name Role Phone Unavailable Primary Care Provider Unavailabl e Reason for Visit * Reason Onset Date Comments Care Coordination 04/16/2024 Isoniazid in [facility] med room Encounter Details Date Type Department Care Team (Late st Contact Info) Description 04/16/[address] 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 A: Isoniazid retrieved from the med room safe. R: Patient confirmed his last name and took medications. P: Return to clinic as scheduled. Geovanna Pugh RN, 04/25/2024 11:35 AM RVISOR BRAIDING * Telephone Encounter - Ghada Briseno RN - 04/16/2024 12:42 PM SUPERVISOR BRAIDING TB symptoms (i.e., weight loss, night sweats, [...] out of his previous supply of medication. Loss Prevention Consultant will place in the safe in the ID Clinic med room. Ghada Briseno RN, 04/16/2024 12:48 PM RVISOR BRAIDING documented in this encounter Plan of Treatment Not on file documented as of this encounter Visit Diagnoses Not on filedocumented in this encounter
--- OUTSIDE RECORDS SUMMARY | 2024-05-02 08:03 | XMS_ITS | Encounter Summary ---
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
--- OUTSIDE RECORDS SUMMARY | 2024-05-02 08:03 | XMS_ITS | CONTINUITY OF CARE DOCUMENT ---
Author Name User, QIE Address [address] [place] [address] 20 [place] [address] Organization [facility] Address [address] [place] [address] 2 [place] [address] Phone [phone] Care Team Providers Care Rock Cutter Name Role Phone User, QIE Unavailable Unavailable PROBLEMS Condition Status Date Provider Notes Organizati on CKD STAGE ESRD ON DIALYSIS GFR <15 active Shital Fuentes , [address] [place] [address] [address] [facility] [address] [facility] ENCOUNTERS Date Type Provider Location Encounter Diag nosis - In-person encounter Office Visit Ghada Everett MD, MD, [address] [place] [address] [address] [facility] [address] [facility] - In-person encounter Office Visit Ghada Everett MD, MD, [address] [place] [address] 20 [facility] [address] [facility] CKD STAGE ESRD ON DIALYSIS GFR <15 VITAL SIGNS Date Observation Value Provider Organization blood pressure, diastolic 92 mm[Hg] Gennaro Raymond RN RN, [address] [place] [address] [address] [facility] blood pressure, systolic 199 mm[Hg] Gennaro Raymond RN RN, [address] [place] [address] [address] [facility] blood pressure, site #1 Upper arm Gennaro Raymond RN RN, [address] [place] [address] [facility] blood pressure, diastolic, right arm 92 mm[Hg] Gennaro Raymond RN RN, [address] [place] [address] [address] [facility] blood pressure, systolic, right arm 199 mm[Hg] Gennaro Raymond RN RN, [address] [place] [address] [facility] respiratory rate E&M 12 /min Gennaro abreu RN RN, [address] [place] [address] [address] [facility] pulse rate 84 /min Gennaro Raymond RN RN, [address] [place] [address] [address] [facility] Body Mass Index (Ratio) 31.12 kg/m2 Gennaro Raymond RN RN, [address] [place] [address] [address] [facility] weight E&M 210 [lb_av] Gennaro Raymond RN RN, [address] [place] [address] [address] [facility] temperature E&M 98.1 [degF] Gnenaro Raymond RN RN, [address] [place] [address] [address] [facility] height E&M 69 [in_i] Gennaro Raymond RN RN, [address] [place] [address] [address] [facility] Body Mass Index (Ratio) 32.61 kg/m2 Shital Brittony , [address] [place] [address] [address] [place] [address] [facility] weight E&M 220 [lb_av] Shital Fuentes , [address] [facility] [address] [place] [address] [facility] height E&M 69 [in_i] Shital Rebaconstanza , [address] [facility] [address] [place] [address] [facility] blood pressure, diastolic 93 mm[Hg] Jade Sung RN RN, [address] [place] [address] [address] [facility] blood pressure, systolic 163 mm[Hg] Jade Sung RN RN, [address] [place] [address] [address] [facility] respiratory rate E&M 16 /min Jade ace RN RN, [address] [place] [address] [address] [facility] blood pressure, site #1 Upper arm Jade Sung RN RN, [address] [place] [address] [address] [facility] blood pressure, diastolic, right arm 93 mm[Hg] Jade Sung RN RN, [address] [place] [address] [address] [facility] blood pressure, systolic, right arm 163 mm[Hg] Jade Sung RN RN, [address] [place] [address] [address] [facility] [address] [place] [address] [facility] pulse rate 86 /min Jade Sung RN RN, [address] [place] [address] [address] [facility] temperature E&M 98 [degF] Jade molina RN RN, [address] [place] [address] [address] [facility] Body Mass Index (Ratio) 29.94 kg/m2 Jade Sung RN RN, [address] [place] [address] [address] [facility] weight E&M 202 [lb_av] Jade Sung RN RN, [address] [place] [address] [address] [facility] height E&M 69 [in_i] Jade Sung RN RN, [address] [place] [address] [address] [facility] blood pressure, diastolic 81 mm[Hg] Shital Bouley , [address] [place] [address] [address] [facility] [address] [facility] blood pressure, systolic 137 mm[Hg] Shital Bouley , [address] [facility] [address] [facility] [address] [facility] blood pressure, diastolic, right arm 81 mm[Hg] Shital Bouley , [address] [facility] [address] [facility] [address] [facility] blood pressure, systolic, right arm 137 mm[Hg] Shital Bouley , [address] [place] [address] [address] [facility] [address] [facility] blood pressure, site #1 Upper arm Shital Bouley , [address] [facility] [address] [facility] [address] [facility] blood pressure, site #2 Upper arm Shital Bouley , [address] [place] [address] [address] [facility] [address] [facility] blood pressure, diastolic, left arm 85 mm[Hg] Shital Fuentes [address] [place] [address] 2 [place] [facility] [address] [facility] blood pressure, systolic, left arm 141 mm[Hg] Shital Fuentes [address] [place] [address] 2 [facility] [address] [facility] pulse rate 83 /min Shital Fuentes 6 [facility] 2 [facility] [address] [facility] Body Mass Index (Ratio) 31.12 kg/m2 Shital Fuentes [address] [place] [address] 2 [facility] [address] [facility] weight E&M 210 [lb_av] Shital Fuentes [address] [address] [facility] height E&M 69 [in_i] Shital Fuentes , [address] [address] [facility] ALLERGIES Allergy Name Onset Date Reaction Criticality Status Provider Or ganization LATEX rash,swelling High Criticality active Shital Fuentes [address] 2 [facility] [address] [facility] RESULTS Date Observation Value Provider Organization Refer ence Range Interpretation Location blood glucose, finger stick 122 Jade Sung RN RN, [address] [place] [address] [place] [address] [facility] HISTORY OF MEDICATION USE Medication Instructions Status Dates Provider Indications Com ments Organization GABAPENTIN 300 MG CAPS 300 300 TAKE ONE CAPSULE BY MOUTH EVERY DAY NEEDED active Shital Ibrahimbeth [address] [place] [address] 2 [facility] [address] [facility] sertraline 50 mg tablet TAKE 1 AND 1/2 TABLETS (75MG) BY MOUTH EVERY MORNING. active Shital Ibrahimbeth [address] [place] [address] [facility] sertraline 25 mg tablet TAKE ONE TABLET(25MG) BY MOUTH EVERY MORNING TAKE WITH THE 50MG TABLET TO TOTAL 75MG DAILY active Shital Ibrahimbeth [address] [place] [address] [facility] carvedilol 6.25 mg tablet TAKE 1 TABLET (6.25 MG) BY MOUTH TWO TIMES DAILY WITH MEALS. active Shital Bouley , [address] [place] [address] [place] [address] [facility] amlodipine 10 mg tablet TAKE 1 TABLET (10 MG) BY MOUTH ONCE DAILY. active Shitalcori Fuentes [address] [place] [address] 2 [place] [address] [facility] losartan 100 mg tablet TAKE ONE TABLET BY MOUTH EVERY DAY active Shital Fuentes [address] [place] [address] 2 [place] [address] [facility] RenaPlex-D 800 mcg-12.5 mg-2,000 unit tablet TAKE 1 TABLET BY MOUTH EVERY DAY active Shital Britton[address] [place] [address] [facility] calcium acetate(phosp hat bind) 667 mg capsule TAKE 1 CAPSULE BY MOUTH THREE TIMES DAILY WITH MEALS active Shital Britton[address] 2 [place] [address] [facility] calcitriol 0.5 mcg capsule take 1 capsule three times a week active Shital [place] [address] [facility] SOCIAL HISTORY Date Observation Value Provider [...] catheter - permacath. Kei Gregory MD, MD, [address] [place] [address] [facility] social history reviewed E&M reviewed - no changes required Gennaro Raymond RN RN, [address] [place] [address] [facility] social history reviewed E&M reviewed - no changes required Shital Fuentes [address] [place] [address] 2 [place] [address] [facility] site on body for surgical procedure electric clipper Jade Sung RN RN, [address] [place] [address] [facility] social history reviewed E&M reviewed - no changes required Jade Sung RN RN, [address] [place] [address] [facility] social history reviewed E&M reviewed - no changes required Shital Fuentes , [address] [facility] [address] [facility] [address] [facility] social history E&M S moking History: Korina briones is a former smoker. Shital Fuentes , [address] [facility] [address] [facility] [address] [facility] smoking status Former smoker Shital Fuentes , [address] [facility] [address] [facility] [address] [facility] FAMILY HISTORY Family Member Condition Mother Family History of Hy pertension Mother Family History of Di abetes INSURANCE PROVIDERS Payer name Policy type / Coverage type [place] red green party ID [facility] [id number] TREATMENT PLAN Date Name Provider Vein Mapping Merle Gross DMS, RVT RDMS, RVT, [address] [place] [address] [address] [facility] [address] HISTORY OF PROCEDURES Procedure Date Procedure Name Provider Procedure Notes Status Organizati on Permacath Removal Kei Gregory MD, MD, [address] [place] [address] [address] [facility] [address] completed [facility] Quailty Measures all negative Kei Gregory MD, MD, [address] [place] [address] [address] [facility] [address] completed [facility] SNOMED-CT:PATIENT ENCOUNTER Kei Gregory MD, MD, [address] [place] [address] [address] [facility] [address] completed [facility] SNOMED-CT:PATIENT ENCOUNTER Ghada Everett MD, MD, [address] [facility] [address] completed [facility] Benadryl 50mg Ghada Everett MD, MD, [address] [facility] [address] completed [facility] INJECTION MIDAZOLAM HCL PER 1 MG Ghada Everett MD, MD, [address] [facility] [address] 4.0 mg completed [facility] INJECTION FENTANYL CITRATE 100MCG Ghada Everett MD, MD, [address] [facility] [address] 200 mcg completed [facility] INJ HEPARIN SODIUM PER 1000 UNITS Ghada Everett MD, MD, [address] [place] [address] units completed [facility] INFUS NORMAL SALINE SOLUTION 250 CC Ghada Everett MD, MD, [address] [place] [address] completed [facility] Ancef 1g Ghada Everett MD, MD, [address] [place] [address] completed [facility] Glucose/hemocue Ghada Everett MD, MD, [address] [place] [address] completed [facility] Creation of Brachicephalic, Radiocephalic, Brachiobasilic Ghada Everett MD, MD, [address] [place] [address] left brachiocephalic completed [facility] Antibiotic initiated on time-Yes Ghada Everett MD, MD, [address] [place] [address] completed [facility] Quailty Measures all negative Ghada Everett MD, MD, [address] [place] [address] completed [facility] SNOMED-CT:PATIENT ENCOUNTER Ghada Everett MD, MD, [address] [place] [address] completed [facility] SNOMED-CT:PATIENT ENCOUNTER Ghada Everett MD, MD, [address] [place] [address] completed [facility]
--- OUTSIDE RECORDS SUMMARY | 2024-05-02 08:03 | XMS_ITS | Referral Summary ---
Author Organization [employer] Address [address] [place] [phone] Phone Care Team Providers Care Applications Engineering Manager Name Role Phone Unavailable Primary Care Provider Unavailabl e Source Comments VitaFlavor is fully rolled out on [employer]. Last update 07/31/08.[employer] Encounters Date Type Department Care Team Description 04/16/[address] [facility] Infect Disease Clinic [address] [place] [address] Ning Leiva MD Care Coordination (Isoniazid in ID Clinic med room) 03/24/2024 Travel 03/24/2024 Telephone Transplant Program [address] [place] [address] Ning Leiva MD 03/24/2024 3:00 PM MARKER MACHINE Office Visit [facility] Cardiology Clinic [address] [place] [address] Denae Mckeon MD Pre-transplant evaluation for ESRD (end stage renal disease) (Primary Dx) Discharge Disposition: Discharged to home or self care 02/12/2024 2:30 PM MARKER MACHINE Telemedicine Transplant Program [address] [place] [address] Ning Leiva MD LTBI (latent tuberculosis infection) (Primary Dx); Pre-transplant evaluation for ESRD (end stage renal disease); End stage renal disease ([facility]) Discharge Disposition: Discharged to home or self [...] stage renal disease) 03/25/2024 Diabetic foot infection ([facility]) 12/18/2023 Anemia due to chronic kidney disease, on chronic dialysis ([facility]) 10/13/2022 Anxiety 10/13/2022 Secondary hyperparathyroidism of renal origin (H HS) 09/24/2022 End stage renal disease ([facility]) 09/24/2022 Overview (01/01/2024): HD started at [facility] 09/16/22 HTN (hypertension) 09/15/2022 Diabetes mellitus ([facility]) 01/27/2002 Resolved Problems Problem Noted Date Diagnosed Date Resolved Date Renovascular hypertension 12/04/2022 Immunizations Immunization Administration Dates Next Due Pneumococcal Conjugate, 20-Valent Vaccine (Prevn ar 20) 11/22/2023 Social History Tobacco Use Types Packs/Day Years Used Date Smoking Tobacco: Never Assessed Sex and Gender Information Value Date Recorded Sex Assigned at Not on file Legal Sex Male 8:16 AM MARKER MACHINE Gender Identity Not on file Sexual Orientation Not on file Last Filed Vital Signs Vital Sign Reading Time Taken Comments Blood Pressure 142/73 03/24/2024 3:18 PM MARKER MACHINE Pulse 87 03/24/2024 3:18 PM MARKER MACHINE Temperature - - Respiratory Rate 18 03/24/2024 3:18 PM MARKER MACHINE Oxygen Saturation - - Inhaled Oxygen Concentration - - Weight 99.8 kg (220 lb) 03/24/2024 3:18 PM MARKER MACHINE Height 170.2 cm (5' 7) 11/20/2023 12:53 [...] 1:20 PM CDT) HIV Antigen-Antibody Nonreactive Nonreactive [facility] Comment:Performance characte ristics have not been established with this test on patients less than 2 years of age. Blood 11/20/2023 1:20 PM CDT 11/20/2023 2:[address] [facility] - 11/20/2023 3:20 PM CDT Bill to Corporate Kidney Acquisition Account us Neva Carbajal [employer] Final Resul t [facility] [address] [place] [address] from Last 3 Months or Most Recently Relevant to Health Maintenance Insurance [employer] Attn Williams Lindquist [address] [address]
--- OUTSIDE RECORDS SUMMARY | 2024-05-02 08:03 | XMS_ITS | Encounter Summary ---
Author Organization [facility] Address [address] [place] [address] Phone Care Team Providers Care Internal Audit Director Name Role Phone Unavailable Primary Care Provider Unavailabl e Reason for Visit * Reason Comments Pre Kidney Transplant Evaluation Encounter Details Date Type Department Care Team (Late st Contact Info) Description 03/24/2024 3:00 PM STRAP MACHINE OPERATOR Office Visit [facility] Cardiology Clinic [address] [address] Denae Mckeon MD [address] [facility] [address] [place], [place] [id number] Pre-transplant evaluation for ESRD (end stage renal disease) (Primary Dx) Discharge Disposition: Discharged to home or self care Social History Tobacco Use Types Packs/Day Years Used Date Smoking Tobacco: Never Assessed Sex and Gender Information Value Date Recorded Sex Assigned at Not on file Legal Sex Male 8:16 AM STRAP MACHINE OPERATOR Gender Identity Not on file Sexual Orientation Not on file documented as of this encounter Last Filed Vital Signs Vital Sign Reading Time Taken Comments Blood Pressure 142/73 03/24/2024 3:18 PM STRAP MACHINE OPERATOR Pulse 87 03/24/2024 3:18 PM STRAP MACHINE OPERATOR Temperature - - Respiratory Rate 18 03/24/2024 3:18 PM STRAP MACHINE OPERATOR Oxygen Saturation - - Inhaled Oxygen Concentration - - Weight 99.8 kg (220 lb) 03/24/2024 3:18 PM STRAP MACHINE OPERATOR Height - - Body Mass Index 34.46 11/20/2023 12:53 PM CDT documented in this encounter Progress Notes * Denae Mckeon MD - 03/24/2024 3:00 PM CST Images from the original note were not included. CARDIOLOGY OFFICE VISIT CONSULT Maco Stein [id number] male Date of service 03/24/2024 Dear [...] Imaging Transthoracic echocardiogram in September 2023 at [facility] showed normal LV size, normal wall thickness and ejection fraction of 55-60%. Normal RV size and function. No hemodynamically significant valvular heart disease. Exercise echocardiogram in October 2023 at [facility]: No evidence of inducible ischemia at the [...] of distress. He was engaged and pleasant. Myra conjunctiva, no icterus. No carotid bruit. JVP [...] patient/guardian was not recorded. Denae Mckeon MD, [facility] Staff Physician, Cardiology 03/24/2024 19:31 P MACHINE OPERATOR documented in this encounter Plan of Treatment Not on file documented as of this encounter Visit Diagnoses Diagnosis Pre-transplant evaluation for ESRD (end stage renal disease)- Primary Other specified pre-operative examination documented in this encounter
--- OUTSIDE RECORDS SUMMARY | 2024-05-02 08:03 | XMS_ITS | Encounter Summary ---
Author Organization [facility] Address [address] [place] [address] Phone Care Team Providers Care Hot Stick Worker Name Role Phone Unavailable Primary Care Provider Unavailabl e Encounter Details Date Type Department Care Team (Late st Contact Info) Description 03/24/2024 Telephone Transplant Program [address] [place], [place] [id number] Ning Leiva MD [address] [facility] [address] [place], [place] [id number] Social History Tobacco Use Types Packs/Day Years Used Date Smoking Tobacco: Never Assessed Sex and Gender Information Value Date Recorded Sex Assigned at Not on file Legal Sex Male 8:16 AM CLERICAL ASSIGNER Gender Identity Not on file Sexual Orientation Not on file documented as of this encounter Miscellaneous Notes * Telephone Encounter - Tj Luong RN - 03/24/2024 4:16 PM CST Patient presented to clinic and picked up medication. Start date verification form faxed to [facility] [employer] copy placed in basket to be scanned into chart. Tj Luong RN, 03/24/2024 4:17 PM ICAL ASSIGNER * Telephone Encounter - Ning Leiva MD - 03/24/2024 1:36 PM CLERICAL ASSIGNER 1 month supply of INH has been sent to ID clinic from [facility] for his LTBI treatment. I contacted him today with this update. Confirmed that he had picked up a refill of his INH in January and completed the 1 month supply, as woods had dropped (but was still $140 copay). He has therefore completed 2 months of his INH to date. The medication ran out approximately 1 week ago. He will pickle processor the medication today at the Infectious Diseases clinic when he is here for a separate clinic visit. This is month 05/04 (first month picked up from [facility] supply) Discussed that he will come to clinic monthly for an RN visit to pickle processor medication refills. At each visit, will need [...] dispensed: Ning Leiva MD, 03/24/2024 1:53 PM ICAL ASSIGNER documented in this encounter Plan of Treatment Not on file documented as of this encounter Visit Diagnoses Not on filedocumented in this encounter
[2024-05-02 08:04] LABS: Basophils Percent Auto 0.2 % (0.0-3.0); Eosinophils Percent Auto 0.5 % (0.0-7.0); Hematocrit 29.1 % (37.0-53.0); Hemoglobin* 8.9 gm/dL (13.5-17.5); Immature Granulocytes Pct Auto 1.6 %; Lymphocytes Percent Auto 28.8 % (20-44); Mean Corpuscular HGB Conc 31 gm/dL (32-36); Mean Corpuscular Hemoglobin 32 pg (26-34); Mean Corpuscular Volume 105 fL (80-100); Monocytes Percent Auto 6.6 % (0.0-11.0); Neutrophils Percent Auto 62.3 % (42.0-72.0); Platelet Count* 87 K/uL (140-440); RDW Coefficient of Variation % 15.8 % (11.5-15.5); Red Blood Count 2.76 m/uL (4.30-5.90); White Blood Count* 11.31 K/uL (4.50-11.00)
[2024-05-02 08:06] LABS: Slide Review Reflex No
--- NOTE | 2024-05-02 08:07 | ED.GENADULT ---
HPI - General Adult General Chief complaint: Cardiac Arrest/CPR Stated complaint: Cardiac Time Seen by Provider: 05/02/24 08:07 Related Data Home Medications ?Medication ?Instructions ?Recorded ?Confirmed clonidine HCl 0.1 mg tablet 0.1 mg PO DAILY 09/14/22 10/19/23 diltiazem HCl 240 mg 240 mg PO DAILY 09/14/22 09/14/22 capsule,extended release 24 hr hydralazine 50 mg tablet 150 mg PO BID 09/14/22 09/14/22 losartan 100 mg tablet 100 mg PO DAILY 09/14/22 10/19/23 metformin 500 mg tablet,extended 500 mg PO BID 09/14/22 09/14/22 release 24 hr amlodipine 10 mg tablet 10 mg PO DAILY 10/19/23 10/19/23 carvedilol 6.25 mg tablet 6.25 mg PO BID 10/19/23 10/19/23 cyclobenzaprine 5 mg tablet 5 mg PO 3XD PRN 10/19/23 10/19/23 gabapentin 300 mg capsule 300 mg PO DAILY PRN 10/19/23 10/19/23 nifedipine 30 mg tablet,extended 30 mg PO BID 10/19/23 10/19/23 release sertraline 25 mg tablet mg PO 10/19/23 sertraline 50 mg tablet 50 mg PO DAILY 10/19/23 10/19/23 sevelamer carbonate 800 mg tablet 2,400 mg PO 3XD 10/19/23 10/19/23 sodium zirconium cyclosilicate 10 g PO 10/19/23 gram oral powder packet ([facility]) vit B,C-folic ac 800 mcg-zinc 12.5 1 tab PO DAILY 10/19/23 10/19/23 mg-selen-D3 2,000 unit-vit E tablet (RenaPlex-D) Previous Rx's ?Medication ?Instructions ?Recorded amoxicillin 500 mg-potassium 1 tab PO BID #10 tabs 10/19/23 clavulanate 125 mg tablet (Augmentin) azithromycin 250 mg tablet 500 mg PO DIRECTED #6 tabs 10/19/23 Allergies Allergy/AdvReac Type Severity Reaction Status Date / Time Latex, Natural Rubber Allergy Verified 12/14/23 20:42 tramadol (From Ultram) Allergy Verified 12/14/23 20:42 [facility] Medical History Chronic kidney disease ?N18.9 - Chronic kidney disease, unspecified (ICD-10) Hypertension ?I10 - Essential (primary) hypertension (ICD-10) Type 2 diabetes mellitus ?E11.9 - Type 2 diabetes mellitus without complications (ICD-10) Social History Smoking Status: Never smoker How often do you have a drink containing alcohol: never AUDIT-C Alcohol total score: 0 Non-prescribed substance use: denies use Exam Const: Vital Signs, click to edit/add: Vital Signs - 24 hr 05/02/24 07:44 05/02/24 07:45 05/02/24 07:47 Pulse Rate 126 H 77 76 Respiratory Rate 18 20 16 Blood Pressure 108/60 93/49 L Pulse Oximetry 74 L 80 L 76 L 05/02/24 07:50 05/02/24 07:53 05/02/24 07:56 Pulse Rate 113 H 110 H Respiratory Rate 18 22 15 Blood Pressure 79/63 L 202/97 H 186/126 H Pulse Oximetry 82 L 74 L 05/02/24 07:59 05/02/24 08:00 Pulse Rate 93 89 Respiratory Rate 12 17 Blood Pressure 171/83 H Pulse Oximetry 90 91 Course Vital Signs Vital signs: Initial Vital Signs Pulse Rate 126 H 05/02/24 07:44 Respiratory Rate 18 05/02/24 07:44 Blood Pressure 108/60 05/02/24 07:44 Blood Pressure Mean 76 05/02/24 07:44 Pulse Oximetry 74 L 05/02/24 07:44 Vital Signs Pulse Rate 126 H 05/02/24 07:44 Respiratory Rate 18 05/02/24 07:44 Blood Pressure 108/60 05/02/24 07:44 Pulse Oximetry 74 L 05/02/24 07:44 Pulse Rate 89 05/02/24 08:00 Respiratory Rate 17 05/02/24 08:00 Blood Pressure 171/83 H 05/02/24 07:59 Pulse Oximetry 91 05/02/24 08:00 Medical Decision Making Lab Data Labs: Lab Results 05/02/24 Range/Units 07:39 Urine Color Yellow (Yellow) Urine Appearance Clear (Clear) Urine pH 8.5 (5.0-8.5) Ur Specific [place] 1.020 (1.000-1.030) Urine Protein 3+ A (Negative) Urine Glucose (UA) 1+ A (Negative) Urine Ketones Negative (Negative) Urine Blood Trace-intact A (Negative) Urine Nitrite Negative (Negative) Urine Bilirubin Negative (Negative) Urine Urobilinogen 0.2 (0.2-1.0) Ur Leukocyte Esterase Negative (Negative) Urine Opiates Screen Negative (Negative) Ur Oxycodone Screen POSITIVE A (Negative) Urine Methadone Screen Negative (Negative) Ur Barbiturates Screen Negative (Negative) U Tricyclic Antidepress Negative (Negative) Ur Phencyclidine Scrn Negative (Negative) Ur Amphetamines Screen Negative (Negative) U Methamphetamines Scrn Negative (Negative) U Benzodiazepines Scrn Negative (Negative) Urine Cocaine Screen Negative (Negative) U Marijuana (THC) Screen Negative (Negative) Ur Drug Screen Comment See Note Discharge Plan Discharge Prescriptions: No Action clonidine HCl 0.1 mg tablet 0.1 mg PO DAILY diltiazem HCl 240 mg capsule,extended release 24hr 240 mg PO DAILY hydralazine 50 mg tablet 150 mg PO BID losartan 100 mg tablet 100 mg PO DAILY metformin 500 mg tablet extended release 24 hr 500 mg PO BID carvedilol 6.25 mg tablet 6.25 mg PO BID nifedipine 30 mg tablet extended release 30 mg PO BID amlodipine 10 mg tablet 10 mg PO DAILY gabapentin 300 mg capsule 300 mg PO DAILY PRN sertraline 25 mg tablet PO sertraline 50 mg tablet 50 mg PO DAILY cyclobenzaprine 5 mg tablet 5 mg PO 3XD PRN sevelamer carbonate 800 mg tablet 2,400 mg PO 3XD RenaPlex-D 800 mcg-12.5 mg -2,000 unit tablet 1 tab PO DAILY Lokelma 10 gram powder in packet PO amoxicillin-pot clavulanate [Augmentin] 500-125 mg tablet 1 tab PO BID Qty: 10 0RF azithromycin 250 mg tablet 500 mg PO DIRECTED Qty: 6 0RF Taper: Z-KATARINA 500 mg Q24H for 1 Day and 0 Hour 250 mg Q24H for 4 Days and 0 Hour Rx Instructions: For 250 mg dose pack: take 500 mg today (day 1), then 250 mg for 4 days (days 2-5) Follow Up/Referrals: Daysi Pires PA-C [Primary Care Provider] -
--- NOTE | 2024-05-02 08:07 | ED.GENADULT ---
HPI - General Adult General Chief complaint: Cardiac Arrest/CPR Stated complaint: Cardiac Time Seen by Provider: 05/02/24 08:07 History of Present Illness HPI narrative: Patient is a 43-year-old gentleman who was last known well approximately 3 hours prior to arrival. He was found by his family approximately an hour prior to arrival and was found to be unconscious and unarousable. EMS was called and patient was noted to be in asystole versus PE a. patient had IO placed and was intubated. He was given epinephrine and IV fluids and at times had return of circulation. Patient was transported the [facility] where he arrives in asystole verses PE a. no further history was available initially Related Data Home Medications ?Medication ?Instructions ?Recorded ?Confirmed clonidine HCl 0.1 mg tablet 0.1 mg PO DAILY 09/14/22 10/19/23 diltiazem HCl 240 mg 240 mg PO DAILY 09/14/22 09/14/22 capsule,extended release 24 hr hydralazine 50 mg tablet 150 mg PO BID 09/14/22 09/14/22 losartan 100 mg tablet 100 mg PO DAILY 09/14/22 10/19/23 metformin 500 mg tablet,extended 500 mg PO BID 09/14/22 09/14/22 release 24 hr amlodipine 10 mg tablet 10 mg PO DAILY 10/19/23 10/19/23 carvedilol 6.25 mg tablet 6.25 mg PO BID 10/19/23 10/19/23 cyclobenzaprine 5 mg tablet 5 mg PO 3XD PRN 10/19/23 10/19/23 gabapentin 300 mg capsule 300 mg PO DAILY PRN 10/19/23 10/19/23 nifedipine 30 mg tablet,extended 30 mg PO BID 10/19/23 10/19/23 release sertraline 25 mg tablet mg PO 10/19/23 sertraline 50 mg tablet 50 mg PO DAILY 10/19/23 10/19/23 sevelamer carbonate 800 mg tablet 2,400 mg PO 3XD 10/19/23 10/19/23 sodium zirconium cyclosilicate 10 g PO 10/19/23 gram oral powder packet ([facility]) vit B,C-folic ac 800 mcg-zinc 12.5 1 tab PO DAILY 10/19/23 10/19/23 mg-selen-D3 2,000 unit-vit E tablet (RenaPlex-D) Previous Rx's ?Medication ?Instructions ?Recorded amoxicillin 500 mg-potassium 1 tab PO BID #10 tabs 10/19/23 clavulanate 125 mg tablet (Augmentin) azithromycin 250 mg tablet 500 mg PO DIRECTED #6 tabs 10/19/23 Allergies Allergy/AdvReac Type Severity Reaction Status Date / Time Latex, Natural Rubber Allergy Verified 12/14/23 20:42 tramadol (From Ultram) Allergy Verified 12/14/23 20:42 Review of Systems Status of ROS: Reports: unobtainable due to mental status [facility] Medical History Chronic kidney disease ?N18.9 - Chronic kidney disease, unspecified (ICD-10) Hypertension ?I10 - Essential (primary) hypertension (ICD-10) Type 2 diabetes mellitus ?E11.9 - Type 2 diabetes mellitus without complications (ICD-10) Social History Smoking Status: Never smoker How often do you have a drink containing alcohol: never AUDIT-C Alcohol total score: 0 Non-prescribed substance use: denies use Exam Narrative: Exam Narrative: EXAM GENERAL: Patient appears on arousable and intubated. EYES: Pupils are fixed and dilated. ENT: External ears clear. THYROID: no thyroid nodules or thyromegaly. LYMPH: No supraclavicular or cervical lymphadenopathy. SKIN: Visible skin seen during exam normal or with benign process only. EXT: No dependent lower extremity pedal edema. HEART: No obvious pulses or a pulse palpated. No heart tones. LUNGS: Decreased ventilation with intubation. ABD: Soft, non tender, non distended. Const: Vital Signs, click to edit/add: Vital Signs - 24 hr 05/02/24 07:44 05/02/24 07:45 05/02/24 07:47 Pulse Rate 126 H 77 76 Respiratory Rate 18 20 16 Blood Pressure 108/60 93/49 L Pulse Oximetry 74 L 80 L 76 L 05/02/24 07:50 05/02/24 07:53 05/02/24 07:56 Pulse Rate 113 H 110 H Respiratory Rate 18 22 15 Blood Pressure 79/63 L 202/97 H 186/126 H Pulse Oximetry 82 L 74 L 05/02/24 07:59 05/02/24 08:00 Pulse Rate 93 89 Respiratory Rate 12 17 Blood Pressure 171/83 H Pulse Oximetry 90 91 Course Course ED Course: Patient arrives without a pulse. We did obtain IV access in addition to the IO in gave epinephrine and continued with the Willard device. After repeated doses of epi x3 we return of Henok's with limited blood pressure. We continued to hydrate. Once we had return of pulse we did hold Willard. We continued with this until another amp of epinephrine was given as the patient began to Carlos down. I did fine no pulses but I did on cardiac examination with ultrasounds show some limited cardiac activity. We continue the epinephrine and the IV hydration and Willard was restarted. 1 mg of atropine was given. A epinephrine drip was started and after an OG tube was placed and large amount of fluid was suctioned the patient is pulse came up to approximately 120 and Willard was stopped. We continue the epinephrine drip to give 1 additional bolus of IV epinephrine. Labs are pending chest x-ray confirms the presence of ET tube. Respiratory therapy arrived and we did place the patient on transport ventilator. At this point the patient is satting in the 90s with a pulse of approximately 110 blood pressure approximately 110/50. He is having some spontaneous respirations and is starting to wake up and not tolerate the endotracheal tube. Propofol drip is started transport to [facility] is arranged. Total critical care time 1 hour and 15 minutes. Vital Signs Vital signs: Initial Vital Signs Pulse Rate 126 H 05/02/24 07:44 Respiratory Rate 18 05/02/24 07:44 Blood Pressure 108/60 05/02/24 07:44 Blood Pressure Mean 76 05/02/24 07:44 Pulse Oximetry 74 L 05/02/24 07:44 Vital Signs Pulse Rate 126 H 05/02/24 07:44 Respiratory Rate 18 05/02/24 07:44 Blood Pressure 108/60 05/02/24 07:44 Pulse Oximetry 74 L 05/02/24 07:44 Pulse Rate 89 05/02/24 08:00 Respiratory Rate 17 05/02/24 08:00 Blood Pressure 171/83 H 05/02/24 07:59 Pulse Oximetry 91 05/02/24 08:00 Medical Decision Making Lab Data Labs: Lab Results 05/02/24 05/02/24 Range/Units 07:20 07:39 WBC 11.31 H (4.50-11.00) K/uL RBC 2.76 L (4.30-5.90) m/uL Hgb 8.9 L (13.5-17.5) gm/dL Hct 29.1 L (37.0-53.0) % MCV 105 H (80-100) fL MCH 32 (26-34) pg MCHC 31 L (32-36) gm/dL RDW Coeff of [place] 15.8 H (11.5-15.5) % Plt Count 87 L (140-440) K/uL Neut % (Auto) 62.3 (42.0-72.0) % Lymph % (Auto) 28.8 (20-44) % [place] % (Auto) 6.6 (0.0-11.0) % Eos % (Auto) 0.5 (0.0-7.0) % Baso % (Auto) 0.2 (0.0-3.0) % Neut # (Auto) 7.00 (1.7-7.0) K/uL Lymph # (Auto) 3.30 H (0.90-2.90) K/uL [place] # (Auto) 0.70 (0.00-0.90) K/UL Eos # (Auto) 0.10 (0.00-0.50) K/uL Baso # (Auto) 0.00 (0.00-0.30) K/uL Abs Immat Gran (auto) 0.20 (0.00-0.30) K/uL Imm/Tot Granulo (auto) 1.6 % Urine Color Yellow (Yellow) Urine Appearance Clear (Clear) Urine pH 8.5 (5.0-8.5) Ur Specific [place] 1.020 (1.000-1.030) Urine Protein 3+ A (Negative) Urine Glucose (UA) 1+ A (Negative) Urine Ketones Negative (Negative) Urine Blood Trace-intact A (Negative) Urine Nitrite Negative (Negative) Urine Bilirubin Negative (Negative) Urine Urobilinogen 0.2 (0.2-1.0) Ur Leukocyte Esterase Negative (Negative) Urine Opiates Screen Negative (Negative) Ur Oxycodone Screen POSITIVE A (Negative) Urine Methadone Screen Negative (Negative) Ur Barbiturates Screen Negative (Negative) U Tricyclic Antidepress Negative (Negative) Ur Phencyclidine Scrn Negative (Negative) Ur Amphetamines Screen Negative (Negative) U Methamphetamines Scrn Negative (Negative) U Benzodiazepines Scrn Negative (Negative) Urine Cocaine Screen Negative (Negative) U Marijuana (THC) Screen Negative (Negative) Ur Drug Screen Comment See Note Discharge Plan Discharge Clinical Impression: Cardiac arrest Patient Disposition: [facility] Condition: Critical Discharge Diet: Other Prescriptions: No Action clonidine HCl 0.1 mg tablet 0.1 mg PO DAILY diltiazem HCl 240 mg capsule,extended release 24hr 240 mg PO DAILY hydralazine 50 mg tablet 150 mg PO BID losartan 100 mg tablet 100 mg PO DAILY metformin 500 mg tablet extended release 24 hr 500 mg PO BID carvedilol 6.25 mg tablet 6.25 mg PO BID nifedipine 30 mg tablet extended release 30 mg PO BID amlodipine 10 mg tablet 10 mg PO DAILY gabapentin 300 mg capsule 300 mg PO DAILY PRN sertraline 25 mg tablet PO sertraline 50 mg tablet 50 mg PO DAILY cyclobenzaprine 5 mg tablet 5 mg PO 3XD PRN sevelamer carbonate 800 mg tablet 2,400 mg PO 3XD RenaPlex-D 800 mcg-12.5 mg -2,000 unit tablet 1 tab PO DAILY Lokelma 10 gram powder in packet PO amoxicillin-pot clavulanate [Augmentin] 500-125 mg tablet 1 tab PO BID Qty: 10 0RF azithromycin 250 mg tablet 500 mg PO DIRECTED Qty: 6 0RF Taper: Z-KATARINA 500 mg Q24H for 1 Day and 0 Hour 250 mg Q24H for 4 Days and 0 Hour Rx Instructions: For 250 mg dose pack: take 500 mg today (day 1), then 250 mg for 4 days (days 2-5) Follow Up/Referrals: Daysi Pires PABeatrizC [Primary Care Provider] - Stand Alone Forms: Auto I.D.th Info Instructions
[2024-05-02 08:08] LABS: HCO3 VBG 17 mmol/L (21-28)
[2024-05-02 08:08] LABS: RBC Urine 0-2 (0-2); WBC Urine 0-2 (0-5)
[2024-05-02 08:10] LABS: Lactate* 9.6 mmol/L (0.5-1.9)
[2024-05-02 08:11] LABS: PCO2 VBG 67 mmHG (40-50); pH VBG 7.016 (7.32-7.43)
[2024-05-02] MEDS: propofoL 1,000 MG/100 ML ML 15 MG IVPB (08:11)
[2024-05-02 08:20] LABS: Anion Gap 21 mEq/L (7-15); Carbon Dioxide* 13 mmol/L (20-32); Chloride* 102 mmol/L (96-114); Sodium* 136 mmol/L (135-149)
[2024-05-02 08:21] LABS: Alanine Aminotransferase* 10 U/L (4-50); Albumin* 3.6 g/dL (3.3-5.0); Alkaline Phosphatase* 62 U/L (40-150); Aspartate Amino Transferase* 34 U/L (12-35); Bilirubin Total* 1.4 mg/dL (0.1-1.5); Blood Urea Nitrogen* 62 mg/dL (5-24); Calcium* 7.6 mg/dL (8.4-10.6); Creatinine* 12.2 mg/dL (0.5-1.5); Estimated Glomerular Filt Rate 5 ml/min; Glucose* 194 mg/dL (60-115); Total Protein* 6.6 g/dL (6.0-8.3)
[2024-05-02 08:22] LABS: Magnesium* 2.8 mg/dL (1.5-2.6); Troponin I* 0.02 ng/mL (0.01-0.04)
[2024-05-02 08:23] LABS: Potassium* 8.3 mmol/L (3.6-5.1)
[2024-05-02] MEDS: PIPERACILLIN/TAZOBACTAM 3.375 GM in 0.9 % SODIUM CHLORIDE Mini-bag 100 ML IVPB (08:25)
== END 2024-05-02 08:50 | disposition short-term general hospital (02) ==
PROVIDERS: Emergency Provider Internal Medicine; PCP Physician Assistant Medical
DX: I46.9 Cardiac arrest, cause unspecified (principal)
CPT/HCPCS: 43752; 36415; 71045; 80053; 80306; 81001; 82803; 83605; 83735; 84484; 85025; 93005; 94761; 96365; 96366; 99283; 99291; J0171; J0461; J2543; J2704; J7030; J7050